=== PATIENT | female | born 1975 | race Caucasian/White ===

== ENCOUNTER 2021-07-28 07:35 | Emergency (ER) | payer OTHER, SELFPAY ==
[2021-07-28 07:59] VITALS: BP 136/68; PULSE 83; RESP 18; TEMP 36.8; O2SAT 98
--- NOTE | 2021-07-28 08:15 | ED.WOUNDLAC ---
HPI - Wound/Laceration General Chief Complaint: Wound/Laceration Stated Complaint: finger laceration Time Seen by Provider: 07/28/21 08:11 Source: patient Mode of arrival: ambulatory Limitations: no limitations History of Present Illness HPI narrative: 46-year-old female Small laceration to left thumb while cutting a bagel this morning No other injuries Tetanus is not up-to-date Related Data Allergies Allergy/AdvReac Type Severity Reaction Status Date / Time Sulfa (Sulfonamide Allergy Mild Hives Verified 07/28/21 08:05 Antibiotics) Review of Systems Neurologic: Denies numbness Hematologic/Lymphatic: Hematologic/Lymphatic: Denies easy bleeding and Denies easy bruising Exam Const: General: no acute distress and alert Orientation/consciousness: patient oriented x3 Resp: Effort & Inspection: normal respiratory effort and not labored Skin: General skin exam: normal color Neuro: General: patient oriented x3 and moves all extremities Extrem: Other: There is a tiny laceration adjacent to the left thumb nail which is oozing a small amount of blood Intact distal sensation Does not enter the nail itself distal Course Vital Signs Vital signs: Vital Signs Temperature 36.8 C 07/28/21 07:59 Pulse Rate 83 07/28/21 07:59 Respiratory Rate 18 07/28/21 07:59 Blood Pressure 136/68 07/28/21 07:59 Pulse Oximetry 98 07/28/21 07:59 Temperature 36.8 C 07/28/21 07:59 Pulse Rate 83 07/28/21 07:59 Respiratory Rate 18 07/28/21 07:59 Blood Pressure 136/68 07/28/21 07:59 Pulse Oximetry 98 07/28/21 07:59 Procedures Laceration Laceration 1: Date: 07/28/21 Time: 08:18 Site: other (hand) Side (If applicable): left Size (cm): 0.3 Description: linear Depth: simple, single layer ====== Skin Level ====== Skin layer closed with: dermabond ====== Subcutaneous Layer ====== ====== Muscle Layer ====== ====== Tendon Layer ====== Discharge Plan Discharge Clinical Impression: Laceration of thumb Patient Disposition: Home, Self-Care Condition: Stable Instructions: Skin Adhesive Care (ED) Follow-up/Referrals: Live Suero MD [Physician] - (primary care as needed) PHYSICIAN,QUILL MACHINE OPERATOR [Primary Care Provider] -
[2021-07-28] MEDS: TETANUS,DIPHTHERIA,AC PERTUSSIS ADULT (0.5 ML) BOOSTRIX IM (09:06)
== END 2021-07-28 09:10 | disposition home or self-care (01) ==
PROVIDERS: Emergency Provider Emergency Medicine
DX: S61.012A Laceration without foreign body of left thumb without damage to nail, initial encounter (principal); Z23 Encounter for immunization; W26.0XXA Contact with knife, initial encounter
CPT/HCPCS: 12001; 90471; 90715; 99282

== ENCOUNTER → 2022-02-22 10:45 | Outpatient (CLI) | payer BC, SELFPAY ==
--- NOTE | ~2022-02-22 | MM_ITS ---
EXAMINATION: MM scrn arben implant BI w monae HISTORY: Screening mammogram TECHNIQUE: Craniocaudal and mediolateral oblique 3-D tomosynthesis images with implant displacement a nd synthetic 2-D images were generated. Craniocaudal and mediolateral oblique views of the breasts wi thout implant displacement were obtained using full field digital mammography. CAD analysis was submi tted and interpreted. COMPARISON: 03/29/2019, 09/16/2015 bilateral implant screening mammogram examinations BREAST PARENCHYMAL COMPOSITION: The breasts are heterogeneously dense, which may obscure small masses . FINDINGS: Status post bilateral augmentation mammoplasty. Low-density circumscribed stable 1.9 x 3.3 and 2.7 x 4.5 mm opacities are noted in the posterior oute r mid right breast, benign in appearance There is no evidence of suspicious mass, calcification, or a rchitectural distortion to suggest malignancy in either breast. There has been no suspicious interval change. IMPRESSION: 1. No mammographic evidence of malignancy. 2. Recommend routine screening mammography in one year. BI-RADS Category 2: Benign finding(s). Reviewed, dictated and finalized at location A.
== END ==
PROVIDERS: Visit Provider Obstetrics & Gynecology
DX: Z12.31 Encounter for screening mammogram for malignant neoplasm of breast (principal)
CPT/HCPCS: 77063; 77067

== ENCOUNTER → 2023-04-22 08:11 | Outpatient (CLI) | payer BC, SELFPAY ==
--- NOTE | ~2023-04-22 | MM_ITS ---
EXAMINATION: MM scrn arben implant BI w monae HISTORY: Screening mammogram TECHNIQUE: Craniocaudal and mediolateral oblique 3-D tomosynthesis images with implant displacement a nd synthetic 2-D images were generated. Craniocaudal and mediolateral oblique views of the breasts wi thout implant displacement were obtained using full field digital mammography. CAD analysis was submi tted and interpreted. COMPARISON: 02/22/2022, 03/29/2019 bilateral implant screening mammogram examinations BREAST PARENCHYMAL COMPOSITION: The breasts are heterogeneously dense, which may obscure small masses . FINDINGS: Status post bilateral augmentation mammoplasty. Stable low-density circumscribed opacities in the posterior outer mid right breast, likely benign int ramammary lymph nodes. There is no evidence of suspicious mass, calcification, or architectural distortion to suggest malign deo in either breast. There has been no suspicious interval change. IMPRESSION: 1. Benign findings No mammographic evidence of malignancy. 2. Recommend routine screening mammography in one year. BI-RADS Category 2: Benign finding(s). Reviewed, dictated and finalized at location A.
== END ==
PROVIDERS: Visit Provider Obstetrics & Gynecology
DX: Z12.31 Encounter for screening mammogram for malignant neoplasm of breast (principal)
CPT/HCPCS: 77063; 77067

== ENCOUNTER 2024-04-23 07:12 | Outpatient (CLI) | payer BC, SELFPAY ==
--- NOTE | ~2024-04-23 | MM_ITS ---
EXAMINATION: MM scrn arben implant BI w monae HISTORY: Screening mammogram TECHNIQUE: Craniocaudal and mediolateral oblique 3-D tomosynthesis images with implant displacement a nd synthetic 2-D images were generated. Craniocaudal and mediolateral oblique views of the breasts wi thout implant displacement were obtained using full field digital mammography. CAD analysis was submi tted and interpreted. COMPARISON: Comparison to multiple prior studies sequentially, with oldest reviewed study dated 08/26. BREAST PARENCHYMAL COMPOSITION: There are scattered areas of fibroglandular density. FINDINGS: There is no evidence of suspicious mass, calcification, or architectural distortion to sugg est malignancy in either breast. There has been no suspicious interval change. IMPRESSION: 1. No mammographic evidence of malignancy. 2. Recommend routine screening mammography in one year. BI-RADS Category 1: Negative Reviewed, dictated and finalized at location B.
== END 2024-04-23 07:13 | disposition home or self-care (01) ==
LOC: CHSIMG 07:14
PROVIDERS: Visit Provider Obstetrics & Gynecology
DX: Z12.31 Encounter for screening mammogram for malignant neoplasm of breast (principal)
CPT/HCPCS: 77063; 77067

== ENCOUNTER 2024-09-30 10:27 | Emergency (ER) | payer BC, SELFPAY ==
--- NOTE | ~2024-09-30 | US_ITS ---
Limited ABDOMINAL ULTRASOUND (Doppler ultrasound interrogation techniques used as needed for this exa m.) Ordering provider: Evelyn Lang MD History: . hypodensities in liver . Comparison: None. FINDINGS: PANCREAS: Normal echotexture and size. PORTAL VEIN: Hepatopedal flow demonstrated. LIVER: Normal size and echotexture. Possible small hypoechoic area in the left lobe which may be a cy st. No other focal hepatic lesions or perihepatic fluid collections are identified. BILIARY DUCTS: No intra or extrahepatic biliary dilation. Common bile duct measures 2.4 mm in diamete r which is normal for patient's age. GALLBLADDER: Normal. No stones, sludge, gallbladder wall thickening or pericholecystic fluid. Wall th ickness is 3.2 mm. Negative sonographic Moore's sign. FREE FLUID: None visualized within the upper abdomen. IMPRESSION: Possible small hypoechoic area seen in the left lobe of the liver which may be a cyst. Otherwise, nor mal limited abdominal ultrasound. Reviewed, dictated and finalized at location A. CONSULTANT IMPRESSION: Possible small hypoechoic area seen in the left lobe of the liver which may be a cyst. Otherwise, normal limited abdominal ultrasound.
--- NOTE | ~2024-09-30 | CT_ITS ---
CT abdomen pelvis w con Ordering provider: Allison Lockhart PA-C History: 49 years Female with . ABD PAIN, DIARRHEA . Comparison: None. Technique: CT abdomen and pelvis with IV and without oral contrast. Automated exposure control and it erative reconstruction technique were employed. The dose-length product was 556.22 mGy-cm. 100 mL Omn ipaque 350 was given IV. Findings: Bilateral breast implants. VISUALIZED LOWER CHEST: Dependent atelectatic changes. UPPER ABDOMINAL ORGANS: Liver: Multiple small hypodensities most likely cysts. The largest measures 1.7 cm. Metastatic lesion s are less likely. Clinical correlation and ultrasound evaluation advised. Gallbladder: Normal. Spleen: Normal. Stomach/duodenum: Small sliding hiatus hernia. Pancreas: Normal. Adrenals: Stone in the left kidney lower pole measuring 5 mm. Normal. Kidneys: Normal. PELVIC ORGANS: The bladder is underfilled. Uterus: Normal. IUD is seen. BOWEL AND MESENTERY: Colon: No evidence of diverticulitis. Slightly dilated cecum with fluid content. The appendix is not demonstrated.. Small Bowel: Normal. No obstruction. Peritoneum/mesentery: No free air or free fluid. No mesenteric lymphadenopathy. Small lymph nodes are seen in the right lower quadrant. RETROPERITONEUM: Normal aorta. No retroperitoneal lymphadenopathy. MUSCULOSKELETAL: Superficial soft tissues: The superficial soft tissues are normal. Bones: Age appropriate degenerative changes of the spine. IMPRESSION: 1. Left kidney stone. 2. Multiple hypodensities in the liver most likely tiny cysts. Ultrasound evaluation advised. 3. Dilated area in the proximal colon is seen in the pelvis most likely dilated cecum. Follow-up adv ised. 4. Small sliding hiatus hernia. Reviewed, dictated and finalized at location A. ENT TENDER IMPRESSION: 1. Left kidney stone. 2. Multiple hypodensities in the liver most likely tiny cysts. Ultrasound eval uation advised. 3. Dilated area in the proximal colon is seen in the pelvis most likely dilate d cecum. Follow-up advised. 4. Small sliding hiatus hernia.
[2024-09-30 10:35] VITALS: BP 127/71; PULSE 130; RESP 16; TEMP 36.8; O2SAT 99
--- NOTE | 2024-09-30 10:54 | ED_ITS ---
HPI - Abdominal Pain General Chief Complaint: Abdominal Pain <Allison Lockhart PA-C - Last Filed: 10/01/24 11:04> Stated Complaint: diarrhea abd pain <Allison Lockhart PA-C - Last Filed: 10/01/24 11:04> Time Seen by Provider: 09/30/24 10:54 <Allison Lockhart PA-C - Last Filed: 10/01/24 11:04> Focused HPI: This is a 49 year old female that presents to the ER for abdominal pain. Reports associated diarrhea. Ongoing over the last several weeks. GENERAL: Well-appearing, well-nourished, and in no acute distress. HEAD: Normocephalic, atraumatic. CHEST: Clear to auscultation. ?No respiratory distress. HEART: Tachycardic, regular rhythm.? NEURO: ?Alert and oriented x3. Patient screened in triage and initial orders placed.? ?Additional care and disposition to be based upon?diagnostic testing and treatment. <Allison Lockhart PA-C - Last Filed: 10/01/24 11:04> Source: patient and family <Evelyn Lang MD - Last Filed: 10/05/24 04:19> Mode of arrival: ambulatory <Evelyn Lang MD - Last Filed: 10/05/24 04:19> Limitations: no limitations <Evelyn Lang MD - Last Filed: 10/05/24 04:19> History of Present Illness HPI narrative: Agree with the above with the following additions/corrections: Diarrhea started 09/14/24. Associated with epigastric abdominal pain occuring intermittently. Also intermittent nausea although none currently. No sick contacts. Has been trying liquids but seems to get diarrhea 15 minutes after. She took antibiotics in July for a sinus infection but finished them before the end of July, none since. No recent travel or chemo. No prior colonoscopy but has had a negative cologuard test. No regular GI issues; does not regularly follow with a mechanical equipment test engineer. This has never happened before. <Evelyn Lang MD - Last Filed: 10/05/24 04:19> Related Data Home Medications: Home Medications ?Medication ?Instructions ?Recorded ?Confirmed ?Last Taken ?Type albuterol sulfate 90 mcg/actuation 1 puff inhalation Q4H PRN 12/09/21 03/13/24 Unknown History aerosol inhaler cetirizine 10 mg capsule (Zyrtec) 10 mg PO DAILY PRN 12/09/21 03/13/24 Unknown History escitalopram oxalate 10 mg tablet 10 mg PO DAILY 12/09/21 03/13/24 Unknown History (Lexapro) fluticasone furoate 100 1 inh inhalation DAILY 12/09/21 03/13/24 Unknown History mcg-vilanterol 25 mcg/dose inhalation powder (Breo Ellipta) fluticasone propionate 50 1 spray intranasal DAILY 12/09/21 03/13/24 Unknown History mcg/actuation nasal spray,suspension (Flonase Allergy Relief) levonorgestrel (Mirena) 1 device intrauterine ONCE 12/09/21 03/13/24 Unknown History liothyronine 5 mcg tablet 10 mcg PO DAILY 03/13/24 03/13/24 Unknown History progesterone micronized 100 mg See Rx Instructions PO QAM 03/13/24 03/13/24 Unknown History capsule testosterone 1 pump topical DAILY 03/13/24 03/13/24 Unknown History <Allison Lockhart PA-C - Last Filed: 10/01/24 11:04> Allergies/Adverse Reactions: Allergies Allergy/AdvReac Type Severity Reaction Status Date / Time Sulfa (Sulfonamide Allergy Hives Verified 03/13/24 09:26 Antibiotics) <Allison Lockhart PA-C - Last Filed: 10/01/24 11:04> Review of Systems 2 Review of Systems: All systems reviewed & are unremarkable except as noted in HPI and below <Allison Lockhart PA-C - Last Filed: 10/01/24 11:04> PMFSH Past Medical History Medical History: Medical History Anxiety Asthma Delivery outcome of stillborn Depression Encounter for IUD insertion 10/21/16 Mirena removal & reinsertion 2011 Mirena insertion Encounter for IUD removal 10/21/16 Mirena removal & reinsertion Encounter for screening examination for sexually transmitted disease Irregular periods Kidney stones Migraines Screening mammogram, encounter for <Allison Lockhart PA-C - Last Filed: 10/01/24 11:04> Surgical History Surgical History: Surgical History History of breast surgery 2006 History of 2005 primary c/s--presentation of hand 08/31/11 History of gynecological procedure (~01/27/22) mirena iud removal and insertion of new device History of gynecological procedure (03/22/22) mirena iud removal Device had shifted and replacement with new device <Allison Lockhart PA-C - Last Filed: 10/01/24 11:04> Family History Family History: Family History Mother Diabetes mellitus Hypertension Heart disease Father Hypertension Cerebrovascular accident Heart disease Grandparent Ovary cancer paternal grandmother <Allison Lockhart PA-C - Last Filed: 10/01/24 11:04> Social History Social History: Social History (Updated 03/13/24 @ 09:30 by Maylin Cameron MA) Smoking status: Former smoker Smoking end date: 09/25/03 Alcohol intake: current Alcohol use details: 2 per month Substance use: never Substance use type: does not use Do You Feel Safe in your Home?: Yes Lack of Transportation: No Lack of Food: Never True Current Housing: I Have Housing Concerned About Future Housing: No Difficulty Paying Gas/Electric Bills: No Difficulty Paying for Meds: No Education: Decline to Answer Difficulty w/ Childcare or Family Care: No Living arrangements: other Additional living arrangements comments: spouse Occupation/Education: 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 HEAD: Normocephalic, atraumatic. EYES: Non injected, non icteric ENT: Nares clear, no rhinorrhea or epistaxis. Moist mucous membranes. NECK: Supple. CHEST: Speaking in full sentences. No respiratory distress. HEART: Regular rate and rhythm. . ABDOMEN: Soft, nondistended. Mildly tender to palpation at epigastrium. No rigidity/guarding. Not peritoneal EXTREMITIES: Normal range of motion. No lower extremity edema. SKIN: Warm, dry, no rash. NEURO: No focal deficits. Alert and oriented x3. PSYCH: Normal mood and affect. <Evelyn Lang MD - Last Filed: 10/05/24 04:19> Course Vital Signs Vital signs: Vital Signs Temperature 98.3 F 09/30/24 10:35 Pulse Rate 130 H 09/30/24 10:35 Respiratory Rate 16 09/30/24 10:35 Blood Pressure 127/71 09/30/24 10:35 Pulse Oximetry 99 09/30/24 10:35 Oxygen Delivery Room Air 09/30/24 10:35 Temperature 97.5 F L 09/30/24 18:33 Pulse Rate 102 H 09/30/24 18:33 Respiratory Rate 16 09/30/24 18:33 Blood Pressure 128/75 09/30/24 18:33 Pulse Oximetry 98 09/30/24 18:33 Oxygen Delivery Room Air 09/30/24 10:35 <Allison Lockhart PA-C - Last Filed: 10/01/24 11:04> Vital Signs Temperature 98.3 F 09/30/24 10:35 Pulse Rate 130 H 09/30/24 10:35 Respiratory Rate 16 09/30/24 10:35 Blood Pressure 127/71 09/30/24 10:35 Pulse Oximetry 99 09/30/24 10:35 Oxygen Delivery Room Air 09/30/24 10:35 Temperature 97.5 F L 09/30/24 18:33 Pulse Rate 102 H 09/30/24 18:33 Respiratory Rate 16 09/30/24 18:33 Blood Pressure 128/75 09/30/24 18:33 Pulse Oximetry 98 09/30/24 18:33 Oxygen Delivery Room Air 09/30/24 10:35 <Evelyn Lang MD - Last Filed: 10/05/24 04:19> MDM - Abdominal Pain MDM Narrative Medical decision making narrative: Patient presents with diarrhea and intermittent epigastric abdominal pain + nausea. In the emergency department she is afebrile with vital signs significant for tachycardia at 130 beats per minute. Patient received 1 L IV fluids given initial tachycardia. My differential diagnosis for chronic diarrhea includes, but not limited to: Infectious (giardia, E histolytica, C difficile), medications (antibiotics, antacids, lactulose, sorbitol, chemotherapy, colchicine, gold), inflammatory etiology (such as IBD, radiation enteritis, ischemic colitis, diverticulitis). Also possible are malabsorption issues due to bile salt deficiency (cirrhosis, cholestasis, ileal disease, bacterial overgrowth), pancreatic insufficiency, mucosal abnormalities (celiac sprue, tropical sprue, Whipple disease), or lactose intolerance. They are also secretory causes such as hormonal (VIP, carcinoid tumor, medullary cancer of thyroid, Zolinger Lyles, glucagon, thyroxine), laxative abuse, neoplasm; finally motility issues may be the cause (IBS, scleroderma, hyperthyroidism, diabetic autonomic neuropathy). Based on CT images, US ordered. Patient has leukocytosis as well as an elevated hemoglobin/hematocrit. I suspect a degree of stress response and hemoconcentration. test negative. TSH abnormal but free T4 normal. This suggests subclinical hyperthyroidism versus T3 toxicosis; T3 is a send out lab and will not result today. Patient does state that she takes supplemental T3; Advised she stop taking this medication. Patient states that she has a primary care physician and she had attempted to go through them for her thyroid medication however she never got a response and so she went through her chiropractor who has a practice that administers these meds. Will also give a one time dose of ciprofloxacin for the combination of chronic diarrhea and the findings of the UA although she denies symptoms. Discharged in stable condition. <Evelyn Lang MD - Last Filed: 10/05/24 04:19> Lab Data Result diagrams: 09/30/24 10:55 09/30/24 10:55 <Allison Lockhart PA-C - Last Filed: 10/01/24 11:04> Labs: Lab Results 09/30/24 09/30/24 09/30/24 Range/Units 10:54 10:55 12:29 WBC 12.3 H (4.5-10.0) K/mm3 RBC 5.52 H (4.2-5.4) M/mm3 Hgb 16.4 H (12.0-15.0) g/dL Hct 49.7 H (37.0-47.0) % MCV 90.0 (80-100) fl MCH 29.7 (26-34) pg MCHC 33.0 (32-36) g/dl RDW 12.8 (11.5-14.5) % Plt Count 363 (150-375) k/mm3 MPV 9.0 (7.4-10.4) fl Immature Gran % (Auto) 0.2 (0-0.5) % Neut % (Auto) 79.9 H (45.5-73.1) % Lymph % (Auto) 12.6 L (18.3-44.2) % [place] % (Auto) 6.3 (2.6-8.5) % Eos % (Auto) 0.6 (0-4.4) % Baso % (Auto) 0.4 (0.2-1.2) % Lymph # (Auto) 1.55 (0.9-3.2) K/mm3 [place] # (Auto) 0.8 H (0.1-0.6) K/mm3 Eos # (Auto) 0.1 (0-0.3) K/mm3 Baso # (Auto) 0.1 (0.0-0.1) K/mm3 Abs Immat Gran (auto) 0.03 (0.00-0.031) K/mm3 Absolute Neuts (auto) 9.8 H (1.3-6.7) K/mm3 Absolute Nucleated RBC 0.000 (0.0-0.012) K/mm3 Nucleated RBC % 0.0 (0.0-0.2) % Sodium 138 (137-145) mmol/L Potassium 4.5 (3.4-5.0) mmol/L Chloride 103 (98-107) mmol/L Carbon Dioxide 24 (22-30) mmol/L Anion Gap 11 (4-12) mmol/L BUN 12 (7-17) mg/dL Creatinine 0.81 (0.7-1.0) mg/dL Estim Creat Clear Calc 83 ml/min Estimated GFR > 60 (59 - ) Glucose 98 (65-110) mg/dL Calcium 9.2 (8.4-10.2) mg/dL Magnesium 1.8 (1.6-2.3) mg/dL Total Bilirubin 0.8 (0.2-1.3) mg/dL AST 21 (14-36) U/L ALT 22 (6-35) U/L Alkaline Phosphatase 104 (38-126) U/L Total Protein 7.0 (6.3-8.2) g/dL Albumin 4.1 (3.5-5.1) g/dL Lipase 74 (23-300) U/L TSH (Reflex) 0.135 L (0.465-4.68) uIU/mL Free T4 0.98 (0.78-2.19) ng/dL Free T3 pg/mL TNP Total T3 1.69 (0.97-1.69) NG/ML Urine Color Dark yellow (Yellow) Urine Appearance Cloudy H (Clear) Urine pH 5.5 (5.0-9.0) Ur Specific [place] 1.025 (1.001-1.035) Urine Protein Trace (Negative) mg/dL Urine Glucose (UA) Negative (Negative) mg/dL Urine Ketones 3+ H (Negative) mg/dL Ur Blood (Man) 1+ H (Negative) Urine Nitrate Negative (Negative) Urine Bilirubin Negative (Negative) Urine Urobilinogen 1.0 (<2.0) mg/dL Add Ur Microanalysis Reviewed Leukocyte Esterase Rfl 2+ H (Negative) CHAPARRO/UL Urine RBC 21-50 H (0-2) /hpf Urine WBC 51-100 H (0-3) /hpf Ur Squamous Epith Cells Moderate (Few) /hpf Urine Bacteria 3+ H /hpf Urine Casts 6-10 POC Urine HCG, Qual (Negative) 09/30/24 Range/Units 12:32 WBC (4.5-10.0) K/mm3 RBC (4.2-5.4) M/mm3 Hgb (12.0-15.0) g/dL Hct (37.0-47.0) % MCV (80-100) fl MCH (26-34) pg MCHC (32-36) g/dl RDW (11.5-14.5) % Plt Count (150-375) k/mm3 MPV (7.4-10.4) fl Immature Gran % (Auto) (0-0.5) % Neut % (Auto) (45.5-73.1) % Lymph % (Auto) (18.3-44.2) % [place] % (Auto) (2.6-8.5) % Eos % (Auto) (0-4.4) % Baso % (Auto) (0.2-1.2) % Lymph # (Auto) (0.9-3.2) K/mm3 [place] # (Auto) (0.1-0.6) K/mm3 Eos # (Auto) (0-0.3) K/mm3 Baso # (Auto) (0.0-0.1) K/mm3 Abs Immat Gran (auto) (0.00-0.031) K/mm3 Absolute Neuts (auto) (1.3-6.7) K/mm3 Absolute Nucleated RBC (0.0-0.012) K/mm3 Nucleated RBC % (0.0-0.2) % Sodium (137-145) mmol/L Potassium (3.4-5.0) mmol/L Chloride (98-107) mmol/L Carbon Dioxide (22-30) mmol/L Anion Gap (4-12) mmol/L BUN (7-17) mg/dL Creatinine (0.7-1.0) mg/dL Estim Creat Clear Calc ml/min Estimated GFR (59 - ) Glucose (65-110) mg/dL Calcium (8.4-10.2) mg/dL Magnesium (1.6-2.3) mg/dL Total Bilirubin (0.2-1.3) mg/dL AST (14-36) U/L ALT (6-35) U/L Alkaline Phosphatase (38-126) U/L Total Protein (6.3-8.2) g/dL Albumin (3.5-5.1) g/dL Lipase (23-300) U/L TSH (Reflex) (0.465-4.68) uIU/mL Free T4 (0.78-2.19) ng/dL Free T3 pg/mL Total T3 (0.97-1.69) NG/ML Urine Color (Yellow) Urine Appearance (Clear) Urine pH (5.0-9.0) Ur Specific [place] (1.001-1.035) Urine Protein (Negative) mg/dL Urine Glucose (UA) (Negative) mg/dL Urine Ketones (Negative) mg/dL Ur Blood (Man) (Negative) Urine Nitrate (Negative) Urine Bilirubin (Negative) Urine Urobilinogen (<2.0) mg/dL Add Ur Microanalysis Leukocyte Esterase Rfl (Negative) CHAPARRO/UL Urine RBC (0-2) /hpf Urine WBC (0-3) /hpf Ur Squamous Epith Cells (Few) /hpf Urine Bacteria /hpf Urine Casts POC Urine HCG, Qual Negative (Negative) <Allison Lockhart PA-C - Last Filed: 10/01/24 11:04> Lab Results 09/30/24 09/30/24 09/30/24 Range/Units 10:54 10:55 12:29 WBC 12.3 H (4.5-10.0) K/mm3 RBC 5.52 H (4.2-5.4) M/mm3 Hgb 16.4 H (12.0-15.0) g/dL Hct 49.7 H (37.0-47.0) % MCV 90.0 (80-100) fl MCH 29.7 (26-34) pg MCHC 33.0 (32-36) g/dl RDW 12.8 (11.5-14.5) % Plt Count 363 (150-375) k/mm3 MPV 9.0 (7.4-10.4) fl Immature Gran % (Auto) 0.2 (0-0.5) % Neut % (Auto) 79.9 H (45.5-73.1) % Lymph % (Auto) 12.6 L (18.3-44.2) % [place] % (Auto) 6.3 (2.6-8.5) % Eos % (Auto) 0.6 (0-4.4) % Baso % (Auto) 0.4 (0.2-1.2) % Lymph # (Auto) 1.55 (0.9-3.2) K/mm3 [place] # (Auto) 0.8 H (0.1-0.6) K/mm3 Eos # (Auto) 0.1 (0-0.3) K/mm3 Baso # (Auto) 0.1 (0.0-0.1) K/mm3 Abs Immat Gran (auto) 0.03 (0.00-0.031) K/mm3 Absolute Neuts (auto) 9.8 H (1.3-6.7) K/mm3 Absolute Nucleated RBC 0.000 (0.0-0.012) K/mm3 Nucleated RBC % 0.0 (0.0-0.2) % Sodium 138 (137-145) mmol/L Potassium 4.5 (3.4-5.0) mmol/L Chloride 103 (98-107) mmol/L Carbon Dioxide 24 (22-30) mmol/L Anion Gap 11 (4-12) mmol/L BUN 12 (7-17) mg/dL Creatinine 0.81 (0.7-1.0) mg/dL Estim Creat Clear Calc 83 ml/min Estimated GFR > 60 (59 - ) Glucose 98 (65-110) mg/dL Calcium 9.2 (8.4-10.2) mg/dL Magnesium 1.8 (1.6-2.3) mg/dL Total Bilirubin 0.8 (0.2-1.3) mg/dL AST 21 (14-36) U/L ALT 22 (6-35) U/L Alkaline Phosphatase 104 (38-126) U/L Total Protein 7.0 (6.3-8.2) g/dL Albumin 4.1 (3.5-5.1) g/dL Lipase 74 (23-300) U/L TSH (Reflex) 0.135 L (0.465-4.68) uIU/mL Free T4 0.98 (0.78-2.19) ng/dL Free T3 pg/mL TNP Total T3 1.69 (0.97-1.69) NG/ML Urine Color Dark yellow (Yellow) Urine Appearance Cloudy H (Clear) Urine pH 5.5 (5.0-9.0) Ur Specific [place] 1.025 (1.001-1.035) Urine Protein Trace (Negative) mg/dL Urine Glucose (UA) Negative (Negative) mg/dL Urine Ketones 3+ H (Negative) mg/dL Ur Blood (Man) 1+ H (Negative) Urine Nitrate Negative (Negative) Urine Bilirubin Negative (Negative) Urine Urobilinogen 1.0 (<2.0) mg/dL Add Ur Microanalysis Reviewed Leukocyte Esterase Rfl 2+ H (Negative) CHAPARRO/UL Urine RBC 21-50 H (0-2) /hpf Urine WBC 51-100 H (0-3) /hpf Ur Squamous Epith Cells Moderate (Few) /hpf Urine Bacteria 3+ H /hpf Urine Casts 6-10 POC Urine HCG, Qual (Negative) 01/06/25 Range/Units 12:32 WBC (4.5-10.0) K/mm3 RBC (4.2-5.4) M/mm3 Hgb (12.0-15.0) g/dL Hct (37.0-47.0) % MCV (80-100) fl MCH (26-34) pg MCHC (32-36) g/dl RDW (11.5-14.5) % Plt Count (150-375) k/mm3 MPV (7.4-10.4) fl Immature Gran % (Auto) (0-0.5) % Neut % (Auto) (45.5-73.1) % Lymph % (Auto) (18.3-44.2) % [place] % (Auto) (2.6-8.5) % Eos % (Auto) (0-4.4) % Baso % (Auto) (0.2-1.2) % Lymph # (Auto) (0.9-3.2) K/mm3 [place] # (Auto) (0.1-0.6) K/mm3 Eos # (Auto) (0-0.3) K/mm3 Baso # (Auto) (0.0-0.1) K/mm3 Abs Immat Gran (auto) (0.00-0.031) K/mm3 Absolute Neuts (auto) (1.3-6.7) K/mm3 Absolute Nucleated RBC (0.0-0.012) K/mm3 Nucleated RBC % (0.0-0.2) % Sodium (137-145) mmol/L Potassium (3.4-5.0) mmol/L Chloride (98-107) mmol/L Carbon Dioxide (22-30) mmol/L Anion Gap (4-12) mmol/L BUN (7-17) mg/dL Creatinine (0.7-1.0) mg/dL Estim Creat Clear Calc ml/min Estimated GFR (59 - ) Glucose (65-110) mg/dL Calcium (8.4-10.2) mg/dL Magnesium (1.6-2.3) mg/dL Total Bilirubin (0.2-1.3) mg/dL AST (14-36) U/L ALT (6-35) U/L Alkaline Phosphatase (38-126) U/L Total Protein (6.3-8.2) g/dL Albumin (3.5-5.1) g/dL Lipase (23-300) U/L TSH (Reflex) (0.465-4.68) uIU/mL Free T4 (0.78-2.19) ng/dL Free T3 pg/mL Total T3 (0.97-1.69) NG/ML Urine Color (Yellow) Urine Appearance (Clear) Urine pH (5.0-9.0) Ur Specific [place] (1.001-1.035) Urine Protein (Negative) mg/dL Urine Glucose (UA) (Negative) mg/dL Urine Ketones (Negative) mg/dL Ur Blood (Man) (Negative) Urine Nitrate (Negative) Urine Bilirubin (Negative) Urine Urobilinogen (<2.0) mg/dL Add Ur Microanalysis Leukocyte Esterase Rfl (Negative) CHAPARRO/UL Urine RBC (0-2) /hpf Urine WBC (0-3) /hpf Ur Squamous Epith Cells (Few) /hpf Urine Bacteria /hpf Urine Casts POC Urine HCG, Qual Negative (Negative) <Evelyn Lang MD - Last Filed: 10/05/24 04:19> Imaging Data Radiologist's impression: ITS Impressions Abdomen/Pelvis CT 09/30/24 13:38 IMPRESSION: 1. Left kidney stone. 2. Multiple hypodensities in the liver most likely tiny cysts. Ultrasound evaluation advised. 3. Dilated area in the proximal colon is seen in the pelvis most likely dilated cecum. Follow-up advised. 4. Small sliding hiatus hernia. Abdomen Ultrasound 09/30/24 15:51 IMPRESSION: Possible small hypoechoic area seen in the left lobe of the liver which may be a cyst. Otherwise, normal limited abdominal ultrasound. <Allison Lockhart PA-C - Last Filed: 10/01/24 11:04> ITS Impressions Abdomen/Pelvis CT 09/30/24 13:38 IMPRESSION: 1. Left kidney stone. 2. Multiple hypodensities in the liver most likely tiny cysts. Ultrasound evaluation advised. 3. Dilated area in the proximal colon is seen in the pelvis most likely dilated cecum. Follow-up advised. 4. Small sliding hiatus hernia. Abdomen Ultrasound 09/30/24 15:51 IMPRESSION: Possible small hypoechoic area seen in the left lobe of the liver which may be a cyst. Otherwise, normal limited abdominal ultrasound. <Evelyn Lang MD - Last Filed: 10/05/24 04:19> ECG Data EKG #1: Attestation: I personally reviewed and interpreted this ECG as follows: < Evelyn Lang MD - Last Filed: 10/05/24 04:19> ECG completion date: 09/30/24 <Evelyn Lang MD - Last Filed: 10/05/24 04:19> ECG completion time: 15:02 <Evelyn Lang MD - Last Filed: 10/05/24 04:19> Interpretation: Sinus tachycardia at a rate of 104 beats per minute. NM interval 150. QRS 90. QT/QTC 299/360. Pre populated algorithm suggests left ventricular hypertrophy but S wave depth in V1 + tallest R wave height in V5-6 is <35mm though R wave in lead I + S wave in lead III is >/= 25mm . <Evelyn Lang MD - Last Filed: 10/05/24 04:19> Critical Care Time Critical Care Time Critical Care Time: No <Allison Lockhart PA-C - Last Filed: 10/01/24 11:04> Discharge Plan Discharge Clinical Impression: Chronic diarrhea, Dilation of cecum, Hiatal hernia, Elevated hemoglobin, Leukocytosis, Liver cyst, Abnormal thyroid stimulating hormone (TSH) level, Asymptomatic bacteriuria <Allison Lockhart PA-C - Last Filed: 10/01/24 11:04> Patient Disposition: Home, Self-Care <Allison Lockhart PA-C - Last Filed: 10/01/24 11:04> Condition: Stable <GARRISON Somers Last Filed: 10/01/24 11:04> Instructions: Antibiotic Form, Hiatal Hernia (ED), Chronic Diarrhea (DC), Leukocytosis (ED) <Allison Lockhart PA-C - Last Filed: 10/01/24 11:04> Additional Instructions: As we discussed, your TSH level was low but T4 normal. Your T3 is a send out lab but, given you have been taking T3 ,this means that it could represent subclinical hyperthyroidism or T3 toxicosis. Given you have been taking supplemental T3, I do recommend that you stop taking this and follow up when the lab results. A 1 time dose of ciprofloxacin can help chronic diarrhea so you received this in the emergency department especially because your urine was abnormal showing possible infection but you are otherwise asymptomatic. Follow- up with primary care physician. Return to the emergency department with any new or worsening symptoms such as concern for dehydration, fainting/passing out, bloody stools, fever greater than 100.4? F, no longer passing gas, pain not responding to medicines, intractable nausea/vomiting. Acetaminophen/Tylenol (maximum 4000 mg per day) is safe to take with NSAIDs (ibuprofen/Motrin) for pain relief. You did have evidence of a hiatal hernia on your CT scan you can trial omeprazole for this. If your symptoms persist, you can follow-up with the mechanical equipment test engineer listed below. For nausea/vomiting, you can use the oral disintegrating tablets of Zofran. <Allison Lockhart PA-C - Last Filed: 10/01/24 11:04> Patient Language: Swedish <Allison Lockhart PA-C - Last Filed: 10/01/24 11:04> Prescriptions: New omeprazole 20 mg tablet,delayed release (DR/EC) 20 mg PO DAILY Qty: 20 0RF ibuprofen 600 mg tablet 600 mg PO TID PRN (Reason: pain) Qty: 20 0RF acetaminophen 500 mg capsule 1,000 mg PO Q6H PRN (Reason: pain) Qty: 20 0RF ondansetron 4 mg tablet,disintegrating 4 mg PO Q8H PRN (Reason: nausea and vomiting) Qty: 7 0RF No Action Zyrtec 10 mg capsule 10 mg PO DAILY PRN fluticasone propionate [Flonase Allergy Relief] 50 mcg/actuation spray,suspension 1 spray intranasal DAILY Rx Instructions: administer into each nostril Mirena 20 mcg/24 hours (7 yrs) 52 mg intrauterine device 1 device intrauterine ONCE Rx Instructions: as a single dose Breo Ellipta 100-25 mcg/dose blister with device 1 inh inhalation DAILY escitalopram oxalate [Lexapro] 10 mg tablet 10 mg PO DAILY albuterol sulfate 90 mcg/actuation HFA aerosol inhaler 1 puff inhalation Q4H PRN liothyronine 5 mcg tablet 10 mcg PO DAILY progesterone micronized 100 mg capsule See Rx Instructions PO QAM Rx Instructions: 110 mg orally every morning; testosterone 20.25 mg/1.25 gram (1.62 %) gel in metered-dose pump 1 pump topical DAILY Rx Instructions: apply 1 pump amount over max area of ONE upper arm and shoulder <Allison Lockhart PA-C - Last Filed: 10/01/24 11:04> Follow-up/Referrals: Ricardo Gee MD [Physician] - (gastroenterology) UNKNOWN,DOCTOR [Primary Care Provider] - <Allison Lockhart PA-C - Last Filed: 10/01/24 11:04> Stand Alone Forms: Work/School Release IP <Allison Lockhart PA-C - Last Filed: 10/01/24 11:04> Time of Disposition: 17:08 <Allison Lockhart PA-C - Last Filed: 10/01/24 11:04> 17:08 <Evelyn Lang MD - Last Filed: 10/05/24 04:19>
--- NOTE | 2024-09-30 10:55 | ECG_ITS ---
Test Date: 2024-09-30 15:02:32 Measurements Intervals [place] Rate: 104 P: 45 [place]: 150 QRS: 4 QRSD: 90 T: 121 QT: 299 QTc: 394 Interpretive Statements SINUS TACHYCARDIA POSSIBLE LEFT ATRIAL ENLARGEMENT [-0.1mV P-WAVE IN V1/V2] LEFT VENTRICULAR HYPERTROPHY AND ST-T CHANGE [VOLTAGE CRITERIA PLUS ST/T ABNORMALITY] No previous ECG available for comparison Electronically Signed On 10-02-2024 17:03:44 LEAD TELLER by Samra Navarrete M.D.
[2024-09-30 11:01] LABS: Basophils Absolute Auto 0.1 K/mm3 (0.0-0.1); Basophils Percent Auto 0.4 % (0.2-1.2); Eosinophils Absolute Auto 0.1 K/mm3 (0-0.3); Eosinophils Percent Auto 0.6 % (0-4.4); Hematocrit 49.7 % (37.0-47.0); Hemoglobin 16.4 g/dL (12.0-15.0); Immature Granulocyte Absolute 0.03 K/mm3 (0.00-0.031); Immature Granulocyte Percent A 0.2 % (0-0.5); Lymphocytes Absolute Auto 1.55 K/mm3 (0.9-3.2); Lymphocytes Percent Auto 12.6 % (18.3-44.2); Mean Corpuscular Hemoglobin 29.7 pg (26-34); Monocytes Absolute Auto 0.8 K/mm3 (0.1-0.6); Monocytes Percent Auto 6.3 % (2.6-8.5); Neutrophils Absolute Auto 9.8 K/mm3 (1.3-6.7); Neutrophils Percent Auto 79.9 % (45.5-73.1); Platelet Count Result 363 k/mm3 (150-375); Red Blood Count 5.52 M/mm3 (4.2-5.4); Red Cell Distribution Width 12.8 % (11.5-14.5); White Blood Count 12.3 K/mm3 (4.5-10.0)
[2024-09-30 11:10] LABS: Alanine Aminotransferase 22 U/L (6-35); Albumin Level 4.1 g/dL (3.5-5.1); Alkaline Phosphatase 104 U/L (38-126); Anion Gap 11 mmol/L (4-12); Aspartate Amino Transferase 21 U/L (14-36); Bilirubin,Total 0.8 mg/dL (0.2-1.3); Blood Urea Nitrogen 12 mg/dL (7-17); Calcium 9.2 mg/dL (8.4-10.2); Carbon Dioxide 24 mmol/L (22-30); Chloride 103 mmol/L (98-107); Estimated CRCL calculation 83 ml/min; Estimated Glomerular Filt Rate > 60; Glucose 98 mg/dL (65-110); Lipase 74 U/L (23-300); Potassium 4.5 mmol/L (3.4-5.0); Sodium 138 mmol/L (137-145)
[2024-09-30 12:34] LABS: BEDSIDEPREGUCG Negative (Negative)
[2024-09-30 12:57] LABS: Add Urine Microscopic? YES; Appearance Urine Cloudy (Clear); Bacteria Urine 3+ /hpf; Bilirubin Urine Negative (Negative); Blood Urine 1+ (Negative); Color Urine Dark Yellow (Yellow); Glucose Urine UA Negative (Negative); Ketones Urine 3+ mg/dL (Negative); Leukocyte Esterase Ur 2+ LEU/UL (Negative); Need Manual Microscopic Reviewed; Nitrate Urine Negative (Negative); Protein Urine Trace mg/dL (Negative); RBC Urine 21-50 /hpf (0-2); Specific Grav Ur 1.025 (1.001-1.035); Squamous Epithelial Cell Urine Moderate /hpf (Few); WBC Urine 51-100 /hpf (0-3); pH Urine 5.5 (5.0-9.0)
[2024-09-30 15:34] LABS: Magnesium 1.8 mg/dL (1.6-2.3)
[2024-09-30 16:14] LABS: Thyroid Stimulating Hormone Reflex 0.135 uIU/mL (0.465-4.68)
[2024-09-30] MEDS: PANTOPRAZOLE 40 MG TABLET PO (16:25)
[2024-09-30] MEDS: SODIUM CHLORIDE 0.9% IV 1,000 ML 999 ML IV CONT (16:26)
[2024-09-30 16:27] VITALS: BP 123/75; PULSE 99; RESP 16; TEMP 36.8; O2SAT 99
[2024-09-30 16:45] LABS: Free T4 Free Thyroxine Reflex 0.98 ng/dL (0.78-2.19)
[2024-09-30] MEDS: CIPROFLOXACIN 250 MG TABLET 750 MG PO (17:53)
[2024-09-30 18:33] VITALS: BP 128/75; PULSE 102; RESP 16; TEMP 36.4; O2SAT 98
[2024-09-30 19:18] LABS: Total Triiodothyronine (T3) 1.69 NG/ML (0.97-1.69)
--- OUTSIDE RECORDS SUMMARY | 2024-10-06 18:12 | XMS_ITS | Encounter Summary ---
Author Organization [facility] Address [address] [place] [address] Care Team Providers Care Rn Chronic Name Role Phone Annalisa Christopher MD Primary Care Provider [phone] Reason for Visit * Reason Comments Clinical Consult Before Scheduling Encounter Details Date Type Department Care Team (Late st Contact Info) Description 07/18/2024 Telephone [facility] Primary Care - [address] [place] [address] Annalisa Christopher MD [address] [place] [address] [address] [place] [address] Clinical Consult Before Scheduling Social History Tobacco Use Types Packs/Day Years Used Date Smoking Tobacco: Former Cigarettes Q uit: 07/09/2010 Smokeless Tobacco: Never Alcohol Use Standard Drinks/Week Comments Yes 0 (1 standard drink = 0.6 oz pur e alcohol) Socially Sex and Gender Information Value Date Recorded Sex Assigned at Not on file Gender Identity Not on file Sexual Orientation Not on file documented as of this encounter Miscellaneous Notes * Telephone Encounter - Sofy Murray LPN - 07/18/2024 8:35 AM CDT 07/18/2024 8:35 AM Spoke with patient. Appointment successfully scheduled/rescheduled. Pt voiced an understanding. Sofy HAGAN * Telephone Encounter - Cora Garza - 07/18/2024 8:20 AM CDT Copied from [facility] #[id number]. Topic: Symptomatic Care >> Jul 18, 2024 8:17 AM Cora Montes wrote: Caller has new symptoms and is seeking care. Age Range/Symptom: Adult: 18+ - Cold, Flu, COVID, Sinus, Hay Fever, Allergies, Cough, Fever Does patient have any of the following other urgent symptoms: No urgent symptoms requiring warm call transfer Caller Name: Fabiana Pryor Callback Number: Telephone Information: Call Notes: Sinus infection symptoms, headache, productive cough w/ yellow/green mucus, sore throat, yellow/green nasal drainage. Patient denied office visit and UC, would like medication called out.Patient states that pcp usually calls it out for her this time of year. Meds tried: Zyrtec D, Flonase, Mucinex w/ no relief. [facility]erred Pharm[id number] [place] [place] [facility] [address] [facility] No documented in this encounter Plan of Treatment Upcoming Encounters Date Type Department Care Team (Late st Contact Info) Description 04/25/2025 8:20 AM CDT Office Visit [facility] Primary Care - [address] [place] [phone] Annalisa Christopher MD [address] [place] [address] [place] [address] documented as of this encounter Visit Diagnoses Not on filedocumented in this encounter Care Teams Rn Chronic Relationship Specialty Start Date End Date Annalisa Christopher MD [address] [facility] [address] [place] [address] PCP - General 07/07/08 documented as of this encounter
--- OUTSIDE RECORDS SUMMARY | 2024-10-06 18:12 | XMS_ITS | Encounter Summary ---
Author Organization [facility] Address [address] [place] [address] Care Team Providers Care Electrical Prospecting Operator Name Role Phone Annalisa Christopher MD Primary Care Provider [phone] Reason for Visit * Reason Comments Med Refill Encounter Details Date Type Department Care Team (Late st Contact Info) Description 05/06/2024 Refill [facility] [address] [place] [address] [place] [phone] Annalisa Christopher MD [address] [place] [address] [address] [place] [address] Mild intermittent asthma without complication Social History Tobacco Use Types Packs/Day Years [...] on file documented as of this encounter Plan of Treatment Upcoming Encounters Date Type Department Care Team (Late st Contact Info) Description 04/25/2025 8:20 AM CDT Office Visit [facility] [address] [facility] [address] [place] [address] Annalisa Christopher MD [address] [place] [address] [address] [place] [address] documented as of this encounter Visit Diagnoses Diagnosis Mild intermittent asthma without complication Unspecified asthma documented in this encounter Care Teams Electrical Prospecting Operator Relationship Specialty Start Date End Date Annalisa Christopher MD [address] [facility] [address] [place] [phone] PCP - General 07/07/08 documented as of this encounter
--- OUTSIDE RECORDS SUMMARY | 2024-10-06 18:12 | XMS_ITS | Encounter Summary ---
Author Organization [facility] Address [address] [place] [address] Care Team Providers Care Proof Machine Operator Name Role Phone Annalisa Christopher MD Primary Care Provider [phone] Reason for Visit * Reason Comments Clinical Consult Before Scheduling Encounter Details Date Type Department Care Team (Late st Contact Info) Description 09/17/2024 Telephone [facility] Primary Care - [address] [place] [address] Annalisa Christopher MD [address] [place] [address] [address] [place] [address] Clinical Consult Before Scheduling Social [...] Telephone Encounter - Sofy Murray LPN - 09/17/2024 9:22 AM MANAGER CONSUMER INSIGHTS 09/17/2024 9:23 AM Pt has no appetite and nausea since Monday09/14/24 and feels she may have the stomach flu, pt states on Sat-Sun she had a temp but she did not take it to see what it was but she was exposed w/t the kids at school to the stomach virus that is going around. She has taken Imodium and said it is notworking, advised no openings to be seen in office & to get evaluated at , pt verbalized an und erstanding. Sofy HAGAN GER CONSUMER INSIGHTS * Telephone Encounter - Samson Apple - 09/17/2024 9:14 AM CST Copied from [facility] #[id number]. Topic: Symptomatic Care >> Sep 17, 2024 9:05 AM Samson Weaver wrote: Caller has new symptoms and is seeking care. Age Range/Symptom: Adult: 18+ - Diarrhea Does patient have any of the following other urgent symptoms? No urgent symptoms requiring warm call transfer Caller Name: Fabiana Pryor Callback Number: [phone] Call Notes: The patient advised that she has diarrhea, no appetite and nausea since Monday09/14/24 and feels she may have the stomach flu. She has taken Imodium and said it is not working for her. She may go to the Urgent Care today but would like to know what else she could take to help. Please advise patient. Unable to schedule appointment within patient's desired timeframe. Patient declined all other options for immediate care, preferring to schedule first available. Scheduled appointment for N/A. If this is not clinically appropriate, please contact patient. GER CONSUMER INSIGHTS documented in this encounter Plan of Treatment Upcoming Encounters Date Type Department Care Team (Late st Contact Info) Description 04/25/2025 8:20 AM CDT Office Visit [facility] [address] [place] [address] [place] [phone] Annalisa Christopher MD [address] [place] [address] [address] [place] [address] documented as of this encounter Visit Diagnoses Not on filedocumented in this encounter Care Teams Proof Machine Operator Relationship Specialty Start Date End Date Annalisa Christopher MD [address] [place] [address] [address] [place] [phone] PCP - General 07/07/08 documented as of this encounter
--- OUTSIDE RECORDS SUMMARY | 2024-10-06 18:12 | XMS_ITS | Encounter Summary ---
Author Organization [facility] Address [address] [place] [address] Care Team Providers Care Pari Mutual Ticket Checker Name Role Phone Annalisa Christopher MD Primary Care Provider [phone] Encounter Details Date Type Department Care Team (Late st Contact Info) Description 07/09/2024 External Device Data STL ABSTRACTION Provider, Abstract NO ADDRESS ON FILE Social History Tobacco Use Types Packs/Day Years [...] Description 04/25/2025 8:20 AM CDT Office Visit [facility] Primary Care - [facility] [address] [place] [address] [place] [address] Annalisa Christopher MD [address] [place] [address] [address] [place] [address] documented as of this encounter Visit Diagnoses Not on filedocumented in this encounter Care Teams Pari Mutual Ticket Checker Relationship Specialty Start Date End Date Annalisa Christopher MD [address] [place] [address] [address] [place] [address] PCP - General 07/07/08 documented as of this encounter
--- OUTSIDE RECORDS SUMMARY | 2024-10-06 18:12 | XMS_ITS | Encounter Summary ---
Author Organization [facility] Address [address] [place] [address] Care Team Providers Care Form Maker Name Role Phone Annalisa Christopher MD Primary Care Provider [phone] Encounter Details Date Type Department Care Team (Late st Contact Info) Description 10/20/2023 External Device Data STL ABSTRACTION Provider, Abstract NO ADDRESS ON FILE Social History Tobacco Use Types Packs/Day Years Used Date Smoking Tobacco: Former Cigarettes Q uit: 07/09/2010 Smokeless Tobacco: Never Alcohol Use Standard Drinks/Week Comments No 0 (1 standard drink = 0.6 oz pur e alcohol) Sex and Gender Information Value Date Recorded Sex Assigned at Not on file Gender Identity Not on file Sexual Orientation Not on file documented as of this encounter Plan of Treatment Upcoming Encounters Date Type Department Care Team (Late st Contact Info) Description 04/25/2025 8:20 AM CDT Office Visit [facility] Primary Care - [facility] [address] [place] [address] [place] [phone] Annalisa Christopher MD [address] [place] [address] [place] [address] documented as of this encounter Visit Diagnoses Not on filedocumented in this encounter Care Teams Form Maker Relationship Specialty Start Date End Date Annalisa Christopher MD [address] [place] [address] [address] [place] [address] PCP - General 07/07/08 documented as of this encounter
--- OUTSIDE RECORDS SUMMARY | 2024-10-06 18:12 | XMS_ITS | Encounter Summary ---
Author Organization [facility] Address [address] [place] [address] Care Team Providers Care Gray Tender Name Role Phone Annailsa Christopher MD Primary Care Provider [phone] Reason for Visit * Reason Comments Med Refill Encounter Details Date Type Department Care Team (Late st Contact Info) Description 08/05/[address] [place] [phone] Annalisa Christopher MD [address] [place] [address] [address] [place] [address] PTSD (post-traumatic stress disorder) Social History Tobacco Use Types Packs/Day Years [...] Description 04/25/2025 8:20 AM CDT Office Visit [facility] [address] [place] [address] [address] [place] [address] Annalisa Christopher MD [address] [place] [address] [address] [place] [address] documented as of this encounter Visit Diagnoses Diagnosis PTSD (post-traumatic stress disorder) Posttraumatic stress disorder documented in this encounter Care Teams Gray Tender Relationship Specialty Start Date End Date Annalisa Christopher MD [address] [place] [phone] PCP - General 07/07/08 documented as of this encounter
--- OUTSIDE RECORDS SUMMARY | 2024-10-06 18:12 | XMS_ITS | Encounter Summary ---
Author Organization [facility] Address [address] [place] [address] Care Team Providers Care Children'S Tutor Nursery Name Role Phone Annalisa Christopher MD Primary Care Provider [phone] Encounter Details Date Type Department Care Team (Late st Contact Info) Description 12/26/2023 External Device Data STL ABSTRACTION Provider, Abstract [...] Description 04/25/2025 8:20 AM CDT Office Visit [facility] Primary Care - [facility] [address] [place] [address] [place] [address] Annalisa Christopher MD [address] [place] [address] [place] [address] documented as of this encounter Visit Diagnoses Not on filedocumented in this encounter Care Teams Children'S Tutor Nursery Relationship Specialty Start Date End Date Annalisa Christopher MD [address] [place] [address] [address] [place] [address] PCP - General 07/07/08 documented as of this encounter
--- OUTSIDE RECORDS SUMMARY | 2024-10-06 18:12 | XMS_ITS | Clinical Summary ---
Author Organization [facility] Address [address] [place] [address] Care Team Providers Care Box Lidder Name Role Phone Leah Santo MD Primary Care Provider Unavaila ble Source Comments [facility],non-owned Affiliates and Associated Physician Practices is amultiple site organization consisting of ambulatory clinics and hospital sitesin [place], [place], [place] and [place]. This disclosure is being madepursuant to the Care Everywhere program and may not contain all information available regarding this patient. Last updated 18.[facility] Allergies Active Allergy Reactions Criticality Noted Date Comments Sulfa Drugs 05/23/2017 Social History Tobacco Use Types Packs/Day Years Used Date Smoking Tobacco: Never Assessed Sex and Gender Information Value Date Recorded Sex Assigned at Not on file Gender Identity Not on file Sexual Orientation Not on file Plan of Treatment Health Maintenance Due Date Last Done Comments COLOGUARD (AGES 45-75) - COL ON CA SCREENING 1975 COLON MONITORING 1975 COLONOSCOPY - COLON CA SCREENING 1975 CT COLONOGRAPHY - COLON CA SCREENING 1975 Colorectal Cancer Screening 1975 FIT - COLON CA SCREENING 1975 FLEX SIG - COLON CA SCREENING 1975 LIPID TESTING 1975 MAMMOGRAM 1975 PAP SMEAR 1975 HIV SCREENING 1990 HEPATITIS C SCREENING 07/06/1993 DTAP/TDAP/TD VACCINES (1 - Tdap) 1994 HEPATITIS B VACCINE (1 of 3 - 19+ 3-dose series) 1994 DEPRESSION SCREENING 09/25/2023 COVID-19 VACCINE (1 - 2023-2 5 season) 2024 INFLUENZA VACCINE (#1) 2024 ZOSTER VACCINE (1 of 2) 2025 HIB VACCINE Aged Out No longer eligi ble based on patient's age to complete this topic HPV VACCINE Aged Out No longer eligi ble based on patient's age to complete this topic MENINGOCOCCAL VACCINE Aged Out No melisa jimmie eligible based on patient's age to complete this topic PNEUMOCOCCAL VACCINE Aged Out No long er eligible based on patient's age to complete this topic Care Teams Box Lidder Relationship Specialty Start Date End Date Leah Santo MD PCP - General Internal Medicine 05/23/17
--- OUTSIDE RECORDS SUMMARY | 2024-10-06 18:12 | XMS_ITS | Encounter Summary ---
Author Organization [facility] Address [address] [place] [address] Care Team Providers Care Core Layer Machine Operator Name Role Phone Annalisa Christopher MD Primary Care Provider [phone] Encounter Details Date Type Department Care Team (Late st Contact Info) Description 04/28/2024 Orders Only [facility] [address] [place] [address] [address] [place] [address] Pearl Junior NP [address] [facility] [address] [place] [address] Elevated LFTs (Primary Dx); Obesity (BMI 30.0-34.9); Mixed hyperlipidemia Social History Tobacco Use Types Packs/Day Years [...] 04/25/2025 8:20 AM CDT Office Visit [facility] [address] [facility] [address] [place] [address] Annalisa Christopher MD [address] [place] [address] [address] [place] [address] documented as of this encounter Procedures Procedure Name Priority Date/Time Associated Diagnosis Comments MICROALBUMIN/CREATINI NE RATIO, RANDOM UR Routine 07/05/2024 7:31 AM CDT Obesity (BMI 30.0-34.9) Mixed hyperlipidemia COMPREHENSIVE METABOLIC PANEL Routine 07/05/2024 7:28 AM CDT Elevated LFTs documented in this encounter Results * MICROALBUMIN/CREATININE RATIO, RANDOM UR (07/05/2024 7:31 AM CDT) Creatinine, Urine 183 20 - 275 mg/dL [facility] MICROALBUMIN, URINE 2.3 See Note: mg/dL [facility] Comment: Reference Range: Reference Range Not established MICROALBUMIN/CREAT RATIO, UR 13 <30 mg/g creat [facility] Comment: The ADA defines abnormalities in albumin excretion as follows: Albuminuria Category ?Result (mg/g creatinine) Normal to Mildly increased ?? <30 Moderately increased ? 30-299 Severely increased ? > OR = 300 The ADA recommends that at least two of three specimens collected within a 3-6 month period be abnormal before considering a patient to be within a diagnostic category. Test Performed at: [facility] [address] [place] [address] ??[id number] Albin Lewis MD Urine URINE SPECIMEN OBTAINED BY CLEAN CATCH PROCEDURE / Unknown 07/05/2024 7:31 AM CDT 07/05/2024 7:31 AM CDT Pearl Junior AMBULATORY SERVICE REPRESENTATIVE URINE ORDERABLES [facility] [phone] [facility] [[email or web address]] [facility] [address] [place] [address] * (ABNORMAL) COMPREHENSIVE METABOLIC PANEL (07/05/2024 7:28 AM CDT) GLUCOSE 113(H) 65 - 99 mg/dL [facility] Comment: ? Fasting reference interval For someone without known diabetes, a glucose value between 100 and 125 mg/dL is consistent with prediabetes and should be confirmed with a follow-up test. BUN 16 7 - 25 mg/dL [facility] CREATININE 0.82 0.50 - 0.99 mg/dL [facility] GFR 88 > OR = 60 mL/min/1. 73m2 [facility] BUN/CREAT RATIO SEE NOTE: (calc) [facility] Comment: ?? Not Reported: BUN and Creatinine are within ?? reference range. ? SODIUM 140 135 - 146 mmol/L [facility] POTASSIUM 4.3 3.5 - 5.3 mmol/L [facility] CHLORIDE 107 98 - 110 mmol/L [facility] CO2 25 20 - 32 mmol/L [facility] CALCIUM 9.2 8.6 - 10.2 mg/dL [facility] TOTAL PROTEIN 6.8 6.1 - 8.1 g/dL [facility] ALBUMIN 4.1 3.6 - 5.1 g/dL [facility] GLOBULIN 2.7 1.9 - 3.7 g/dL (calc) [facility] ALBUMIN/GLOBULIN RATIO 1.5 1.0 - 2.5 (calc) [facility] BILIRUBIN TOTAL 0.5 0.2 - 1.2 mg/dL [facility] ALKALINE PHOSPHATASE 98 31 - 125 U/L [facility] AST 17 10 - 35 U/L [facility] ALT 31(H) 6 - 29 U/L [facility] Comment: Test Performed at: [facility] [address] [facility] [facility] [facility] [phone] Albin Lewis MD Blood 07/05/2024 7:28 AM CDT 07/05/2024 7:29 AM CDT Pearl Junior NP CHEMISTRY ORDERABLE [facility] [phone] [facility] [address] [place] [address] documented in this encounter Visit Diagnoses Diagnosis Elevated LFTs- Primary Other abnormal blood chemistry Obesity (BMI 30.0-34.9) Obesity, unspecified Mixed hyperlipidemia documented in this encounter Care Teams Core Layer Machine Operator Relationship Specialty Start Date End Date Annalisa Christopher MD [address] [place] [address] PCP - General 07/07/08 documented as of this encounter
--- OUTSIDE RECORDS SUMMARY | 2024-10-06 18:12 | XMS_ITS | Encounter Summary ---
Author Organization [facility] Address [address] [place] [address] Care Team Providers Care Animal Maintenance Supervisor Name Role Phone Annalisa Christopher MD Primary Care Provider [phone] Encounter Details Date Type Department Care Team (Late st Contact Info) Description 09/06/2023 External Device Data STL ABSTRACTION Provider, Abstract [...] Description 04/25/2025 8:20 AM CDT Office Visit [facility] Primary Care - [facility] [address] [place] [address] [place] [address] Annalisa Christopher MD [address] [place] [address] [place] [address] documented as of this encounter Visit Diagnoses Not on filedocumented in this encounter Care Teams Animal Maintenance Supervisor Relationship Specialty Start Date End Date Annalisa Christopher MD [address] [place] [address] [address] [place] [address] PCP - General 07/07/08 documented as of this encounter
--- OUTSIDE RECORDS SUMMARY | 2024-10-06 18:12 | XMS_ITS | Encounter Summary ---
Author Organization [facility] Address [address] [place] [address] Care Team Providers Care Mobile Plant Operators Name Role Phone Annalisa Christopher MD Primary Care Provider [phone] Reason for Visit * Reason Comments Med Refill Encounter Details Date Type Department Care Team (Late st Contact Info) Description 01/27/2024 Refill [facility] [address] [place] [address] [place] [phone] Annalisa Christopher MD [address] [place] [address] [address] [place] [address] Mild intermittent asthma without complication [...] 04/25/2025 8:20 AM CDT Office Visit [facility] [address] [place] [address] [address] [place] [address] Annalisa Christopher MD [address] [place] [address] [address] [place] [address] documented as of this encounter Visit Diagnoses Diagnosis Mild intermittent asthma without complication Unspecified asthma documented in this encounter Care Teams Mobile Plant Operators Relationship Specialty Start Date End Date Annalisa Christopher MD [address] [facility] [address] [place] [phone] PCP - General 07/07/08 documented as of this encounter
--- OUTSIDE RECORDS SUMMARY | 2024-10-06 18:12 | XMS_ITS | Encounter Summary ---
Author Organization [facility] Address [address] [place] [address] Care Team Providers Care Laundrette Owner Name Role Phone Annalisa Christopher MD Primary Care Provider [phone] Encounter Details Date Type Department Care Team (Late st Contact Info) Description 10/22/2023 External Device Data [facility] ABSTRACTION Provider, Abstract [...] Description 04/25/2025 8:20 AM CDT Office Visit [facility] - [facility] [address] [place] [address] [place] [phone] Annalisa Christopher MD [address] [place] [address] [place] [phone] documented as of this encounter Visit Diagnoses Not on filedocumented in this encounter Care Teams Laundrette Owner Relationship Specialty Start Date End Date Annalisa Christopher MD [address] [place] [address] [address] [place] [address] PCP - General 07/07/08 documented as of this encounter
--- OUTSIDE RECORDS SUMMARY | 2024-10-06 18:12 | XMS_ITS | Encounter Summary ---
Author Organization [facility] Address [address] [place] [address] Care Team Providers Care Biztalk Administrator Name Role Phone Annalisa Christopher MD Primary Care Provider [phone] Encounter Details Date Type Department Care Team (Late st Contact Info) Description 10/21/2023 External Device Data [facility] ABSTRACTION Provider, Abstract [...] Description 04/25/2025 8:20 AM CDT Office Visit [facility] Primary Care - [facility] [address] [place] [address] [place] [phone] Annalisa Christopher MD [address] [place] [address] [place] [phone] documented as of this encounter Visit Diagnoses Not on filedocumented in this encounter Care Teams Biztalk Administrator Relationship Specialty Start Date End Date Annalisa Christopher MD [address] [place] [address] [address] [place] [address] PCP - General 07/07/08 documented as of this encounter
--- OUTSIDE RECORDS SUMMARY | 2024-10-06 18:12 | XMS_ITS | Encounter Summary ---
Author Organization [facility] Address [address] [place] [address] Care Team Providers Care Vacuum Drum Drier Operator Name Role Phone Annalisa Christopher MD Primary Care Provider [phone] Reason for Visit * Reason Comments Med Refill Encounter Details Date Type Department Care Team (Late st Contact Info) Description 12/29/[address] [place] [phone] Annalisa Christopher MD [address] [place] [address] [address] [place] [address] Mild intermittent asthma without complication [...] encounter Miscellaneous Notes * Telephone Encounter - mEely Cuadra - 12/29/2023 8:33 AM CDT GRIFFIN 04/19/23 documented in this encounter Plan of Treatment Upcoming Encounters Date Type Department Care Team (Late st Contact Info) Description 04/25/2025 8:20 AM CDT Office Visit [facility] [address] [facility] [address] [place] [phone] Annalisa Christopher MD [address] [place] [address] documented as of this encounter Visit Diagnoses Diagnosis Mild intermittent asthma without complication Unspecified asthma documented in this encounter Care Teams Vacuum Drum Drier Operator Relationship Specialty Start Date End Date Annalisa Christopher MD [address] [place] [address] PCP - General 07/07/08 documented as of this encounter
--- OUTSIDE RECORDS SUMMARY | 2024-10-06 18:12 | XMS_ITS | Encounter Summary ---
Author Organization [facility] Address [address] [place] [address] Care Team Providers Care Die Operator Name Role Phone Annalisa Christopher MD Primary Care Provider [phone] Reason for Visit * Reason Comments Physical Encounter Details Date Type Department Care Team (Late st Contact Info) Description 04/22/2024 12:00 PM CDT Office Visit [facility] Primary Care - [place] [id number] [facility] [address] [place] [phone] Pearl Junior, SAI [address] [facility] [address] [place] [address] Encounter for routine adult health examination with abnormal findings (Primary Dx); Encounter for colorectal cancer screening; Migraine without status migrainosus, not intractable, unspecified migraine type; Obesity (BMI 30.0-34.9); Mixed hyperlipidemia; Mild intermittent asthma without complication; Benign essential tremor; Screening for diabetes mellitus Social History Tobacco Use Types Packs/Day Years Used Date Smoking Tobacco: Former Cigarettes Q uit: 07/09/2010 Smokeless Tobacco: Never Tobacco Cessation:Counseling Given: Not Answered Alcohol Use Standard Drinks/Week Comments Yes 0 (1 standard drink = 0.6 oz pur e alcohol) Socially Sex and Gender Information Value Date Recorded Sex Assigned at Not on file Gender Identity Not on file Sexual Orientation Not on file documented as of this encounter Last Filed Vital Signs Vital Sign Reading Time Taken Comments Blood Pressure 118/84 04/22/2024 11:37 AM CDT Pulse 75 04/22/2024 11:37 AM CDT Temperature 36.4 ??C (97.5 ??F) 04/22/2024 11:37 AM C DT Respiratory Rate - - Oxygen Saturation 99% 04/22/2024 11:37 AM CDT Inhaled Oxygen Concentration - - Weight 93.5 kg (206 lb 3.2 oz) 04/22/2024 11:37 AM CDT Height 170.2 cm (5' 7 ) 04/22/2024 11:37 AM CDT Body Mass Index 32.3 04/22/2024 11:37 AM CDT documented in this encounter Progress Notes * Pearl Junior, SAI - 04/22/2024 11:53 AM CDT 04/22/24 BP 118/84 (BP Location: Right arm, Patient Position (BP): Sitting, BP Cuff Size: Large Adult) Pulse 75 Temp 97.5 ??F (36.4 ??C) (Temporal) Ht 5' 7 (1.702 m) Wt 93.5 kg (206 lb 3.2 oz) [id number]% BMI 32.30 kg/m?? HPI: Fabiana Pryor is a 48 y.o. female that presents today for Physical Went to [facility] in [place], [place].. had hormones checked and began HRT. Taking T3, Testosterone, and progesterone through this clinic. - feels more energy, no more hot flashes - would like medications to come from our office as this is expensive and her insurance covers the medications. Review of Systems Constitutional: Positive for malaise/fatigue. Negative for chills and fever. HENT: Negative. Negative for congestion. Eyes: Negative. Respiratory: Negative. Negative for cough and shortness of breath. Cardiovascular: Negative. Negative for chest pain, palpitations and leg swelling. Gastrointestinal: Negative. Negative for abdominal pain and diarrhea. Genitourinary: Negative. Musculoskeletal: Negative. Skin: Negative. Neurological: Positive for headaches. Psychiatric/Behavioral: Negative. Physical Exam Constitutional: General: She is not in acute distress. Appearance: Normal appearance. She is overweight. She is not ill-appearing. HENT: Head: Normocephalic and atraumatic. Right Ear: Tympanic membrane and external ear normal. Left Ear: Tympanic membrane and external ear normal. Eyes: Conjunctiva/sclera: Conjunctivae normal. Pupils: Pupils are equal, round, and reactive to light. Cardiovascular: Rate and Rhythm: Normal rate and regular rhythm. Pulses: Normal pulses. Heart sounds: Normal heart sounds. No murmur heard. Pulmonary: Effort: Pulmonary effort is normal. No respiratory distress. Breath sounds: Normal breath sounds. No wheezing. Abdominal: General: Bowel sounds are normal. There is no distension. Palpations: Abdomen is soft. Musculoskeletal: General: Normal range of motion. Cervical back: Normal range of motion. Lymphadenopathy: Cervical: No cervical adenopathy. Skin: General: Skin is warm and dry. Capillary Refill: Capillary refill takes less than 2 seconds. Neurological: General: No focal deficit present. Mental Status: She is alert and oriented to person, place, and time. Psychiatric: Mood and Affect: Mood normal. Behavior: Behavior normal. Procedures Lab review: Orders written for new lab studies as appropriate; see orders ICD-10-CM ICD-9-CM 1. Encounter for routine adult health examination with abnormal findings Z00.01 V70.0 The majority of today's visit was spent discussing age-specific health maintenance issues and the utility of a healthy diet and exercise regimen. -Exercise: working on the form -Immunizations: PNA: Prevnar 20 at 65 or 15 followed by 23 1 year later Flu: Recommend annually Tdap: Every 10 years Shingles: At age 50 COVID-19 Vaccination: recommended RSV: age over 60 recommended -Colonoscopy: cologuard ordered -Hep C screening: Once adults aged 18-79 -Continue annual eye exams and semi-annual dental exams -Counseled on routine diet and exercise -Tobacco Use: nonsmoker -ETOH Use: socially -Lung Cancer Screening (Annual low-dose CT) Adults 50 - 80 w/ >30 pack-year smoking hx who currently smoke or have quit w/in 15 yrs: Not indicated -DEXA: Once Age 65 -Mammogram: Due once yearly starting at age 40 -Pap smear: follows with OBGYN- Dr. Virgen 2. Encounter for colorectal cancer screening Z12.11 V76.51 COLON CANCER SCREEN, STOOL DNA Z12.12 V76.41 COLON CANCER SCREEN, STOOL DNA 3. Migraine without status migrainosus, not intractable, unspecified migraine type G43.909 346.90 COMPREHENSIVE METABOLIC PANEL - check labs - 1-2 a month with the weather typically - starts with visual floaters-- promethazine prn helps -propranolol- continue 4. Obesity (BMI 30.0-34.9) E66.9 278.00 COMPREHENSIVE METABOLIC PANEL VITAMIN D 25 HYDROXY - Encourage patient to pursue daily exercise of at least 30 minutes per day and eat a healthy diet-I.e. Mediterranean diet 5. Mixed hyperlipidemia E78.2 272.2 LIPID PANEL - check labs - The 10-year ASCVD risk score (Leslie DELATORRE, et al., 2019) is: 1.1% Values used to calculate the score: Age: 48 years Sex: Female Is Non- : No Diabetic: No Tobacco smoker: No Systolic Blood Pressure: 118 mmHg Is BP treated: No HDL Cholesterol: 52 mg/dL Total Cholesterol: 215 mg/dL 6. Mild intermittent asthma without complication J45.20 493.90 - stable with current regimen - Breo + albuterol prn 7. Benign essential tremor G25.0 333.1 - continue propranolol 8. Screening for diabetes mellitus Z13.1 V77.1 HEMOGLOBIN A1C COMPREHENSIVE METABOLIC PANEL Past Medical History: Diagnosis Date Allergic rhinitis 08/05/2013 Extrinsic asthma, unspecified 1979 Family history of allergic disorder succinylcholine Migraine 10/07/2010 Mixed hyperlipidemia 10/12/2018 PTSD (post-traumatic stress disorder) Hx of stillbirth at age 25, patient has 2 living children 7 pregnancies Temporomandibular joint disorders, unspecified occasional jaw pain/ rare popping Past Surgical History: Procedure Laterality Date HX BREAST AUGMENTATION 2006 [facility] [place] DELIVERY ONLY 2003 TX DELIVERY ONLY 08/31/2011 SECTION performed by Douglas Patricio MD at [facility] L&D TX DILATION & CURETTAGE DX&/THER NONOBSTETRIC 09/08/2010 DILATATION AND CURETTAGE SUCTION performed by DOUGLAS PATRICIO at [facility] Current Outpatient Medications Medication Sig Dispense Refill fluticasone furoate-vilanteroL (BREO ELLIPTA) 100-25 mcg/dose Disk with Device inhale 1 puff by mouth every day 60 Each 2 escitalopram oxalate (LEXAPRO) 10 mg tablet take 1 tablet by mouth every day 30 Tablet 10 promethazine (PHENERGAN) 25 mg tablet TAKE 1 TABLET BY MOUTH EVERY 6 HOURS NEEDED FOR NAUSEA/EMESIS. 30 Tablet 0 albuterol sulfate 90 mcg/Actuation inhaler TAKE 2 PUFFS EVERY 6 HOURS NEEDED FOR SHORTNESS OF BREATH. 8.5 Gram 11 propranoloL (INDERAL) 20 mg tablet Take 1 Tablet (20 mg) by mouth 3 times daily. 90 Tablet 11 Peak Flow Meter Device Dx asthma. 1 Device 0 fluticasone (FLONASE) 50 mcg/spray Holden, Suspension Administer 2 Sprays in each nostril daily. cetirizine-pseudoephedrine sr 12 hour (ZyrTEC-D) 5-120 mg tablet Take 1 Tablet by mouth 2 times daily. 60 Tablet 3 diazePAM (VALIUM) 5 mg tablet Take 1 Tablet (5 mg) by mouth 1 time daily as needed for Anxiety. 20 Tablet 0 levonorgestreL (MIRENA) 20 mcg/24 hours (7 yrs) 52 mg IUD by Intrauterine route. tamsulosin (FLOMAX) 0.4 mg capsule TAKE 1 CAPSULE BY MOUTH EVERY DAY (Patient not taking: Reported on 04/22/2024) 30 Capsule 0 No current facility-administered medications for this visit. Tobacco Counseling She is not a tobacco/nicotine user. Return in about 1 year (around 04/22/2025) for Wellness/Preventative (733 or 232). Depression Screen Positive: PHQ-2 score >= 3 or PHQ-9 score >= 9 PHQ-2 Total: 0 (04/22/2024 11:41 AM) DEPRESSION PLAN OF CARE Her depression screen was negative. FALL RISK She has had no falls in the past year. Patient voiced an understanding of the diagnosis and treatment plan as outlined above Pearl Junior NP This note (or part of it) was transcribed using Stypi speaking computerized voice recognition without a human tank operator. This report may or may not have been adjusted for typographical, grammatical and syntax errors. documented in this encounter Miscellaneous Notes * Result Encounter Note - Pearl Junior NP - 05/06/2024 11:20 PM CDT Colon cancer screening is normal. Repeat in 3 years documented in this encounter Plan of Treatment Upcoming Encounters Date Type Department Care Team (Late st Contact Info) Description 04/25/2025 8:20 AM CDT Office Visit [facility] Primary Care - [facility] [address] [place] [address] Annalisa Christopher MD [address] [place] [address] documented as of this encounter Procedures Procedure Name Priority Date/Time Associated Diagnosis Comments COLON CANCER SCREEN, STOOL DNA Routine 04/26/2024 2:42 PM CDT Encounter for colorectal cancer screening VITAMIN D 25 HYDROXY Routine 04/24/2024 7:16 AM CDT Obesity (BMI 30.0-34.9) HEMOGLOBIN A1C Routine 04/24/2024 7:16 AM CDT Screening for diabetes mellitus LIPID PANEL Routine 04/24/2024 7:16 AM CDT Mixed hyperlipidemia COMPREHENSIVE METABOLIC PANEL Routine 04/24/2024 7:16 AM CDT Migraine without status migrainosus, not intractable, unspecified migraine type Obesity (BMI 30.0-34.9) Screening for diabetes mellitus documented in this encounter Results * COLON CANCER SCREEN, STOOL DNA (04/26/2024 2:42 PM CDT) COLOGUARD RESULT Negative Negative FIRE1 Comment: NEGATIVE TEST RESULT. A negative Cologuard result indicates a low likelihood that a colorectal cancer (CRC) or advanced adenoma (adenomatous polyps with more advanced pre-malignant features) ??is present. The chance that a person with a negative Cologuard test has a colorectal cancer is less than 1 in 1500 (negative predictive value >99.9%) or has an ??advanced adenoma is less than ??5.3% (negative predictive value 94.7%). These data are based on a prospective cross-sectional study of 10,000 individuals at average risk for colorectal cancer who were screened with both Cologuard and colonoscopy. (Diane Rodriguez. velma al, N Engl J Med 2014;370(14):7360-0949) The normal value (reference range) for this assay is negative. COLOGUARD RE-SCREENING RECOMMENDATION: Periodic colorectal cancer screening is an important part of preventive healthcare for asymptomatic individuals at average risk for colorectal cancer. ??Following a negative Cologuard result, the [place] Cancer Society and U.S. Multi-Society Task Force screening guidelines recommend a Cologuard re-screening interval of 3 years. References: [place] Cancer Society Guideline for Colorectal Cancer Screening: https://www.cancer.org/cancer/cyrij-jpyswh-irjtlm/zaklslkgg-hpylzizrj-rthuubr/ac s-rec ommendations.html.; Compa DELATORRE, Santos CARO, Cass SungK, Colorectal Cancer Screening: Recommendations for Physicians and Patients from the U.S. Multi-Society Task Force on Colorectal Cancer Screening , Am J Gastroenterology 2017; 112:9134-7653. TEST DESCRIPTION: Composite algorithmic analysis of stool DNA-biomarkers with hemoglobin immunoassay. ?? Quantitative values of individual biomarkers are not reportable and are not associated with individual biomarker result reference ranges. Cologuard is intended for colorectal cancer screening of adults of either sex, 45 years or older, who are at average-risk for colorectal cancer (CRC). Cologuard has been approved for use by the U.S. FDA. The performance of Cologuard was established in a cross sectional study of average-risk adults aged 50-84. Cologuard performance in patients ages 45 to 49 years was estimated by sub-group analysis of near-age groups. Colonoscopies performed for a positive result may find as the most clinically significant lesion: colorectal cancer [4.0%], advanced adenoma (including sessile serrated polyps greater than or equal to 1cm diameter) [20%] or non- advanced adenoma [31%]; or no colorectal neoplasia [45%]. These estimates are derived from a prospective cross-sectional screening study of 10,000 individuals at average risk for colorectal cancer who were screened with both Cologuard and colonoscopy. (Diane Rodriguez. velma al, N Engl J Med 2014;370(14):0997-0995.) Cologuard may produce a false negative or false positive result (no colorectal cancer or precancerous polyp present at colonoscopy follow up). A negative Cologuard test result does not guarantee the absence of CRC or advanced adenoma (pre-cancer). The current Cologuard screening interval is every 3 years. ([place] Cancer Society and U.S. Multi-Society Task Force). Cologuard performance data in a 10,000 patient pivotal study using colonoscopy as the reference method can be accessed at the following location: www.Open Wager/results. Additional description of the Cologuard test process, warnings and precautions can be found at www.cologBilleord.Yododo. Stool STOOL SPECIMEN / Unknown 04/26/2024 2:42 PM CDT 04/27/2024 11:24 AM CDT Pearl Junior RESEARCH ENGINEER MARINE EQUIPMENT BODY FLUIDS AND STO OLS [facility] CLIA # [id number] [address] , [address] [place] [address] * VITAMIN D 25 HYDROXY (04/24/2024 7:16 AM CDT) VITAMIN D, 25 OH, TOTAL 87 30 - 100 ng/mL [facility] [facility] Comment: Vitamin D Status ? 25-OH Vitamin D: Deficiency: ?<20 ng/mL Insufficiency: ? 20 - 29 ng/mL Optimal: ? > or = 30 ng/mL For 25-OH Vitamin D testing on patients on D2-supplementation and patients for whom quantitation of D2 and D3 fractions is required, the [employer]() 25-OH VIT D, (D2,D3), LC/MS/MS is recommended: order code 42126 (patients >2yrs). See Note 1 Note 1 For additional information, please refer to http://education.[employer].Yododo/faq/WMV562 (This link is being provided for informational/ educational purposes only.) FASTING:YES FASTING: YES Test Performed at: [facility] [address] [place], [place] ??[phone] Albin Lewis MD Blood 04/24/2024 7:16 AM CDT 04/24/2024 7:17 AM CDT Pearl Junior RESEARCH ENGINEER MARINE EQUIPMENT CHEMISTRY ORDERABLE S [facility] [phone] [facility] [address] [place] [address] * (ABNORMAL) COMPREHENSIVE METABOLIC PANEL (04/24/2024 7:16 AM CDT) GLUCOSE 116(H) 65 - 99 mg/dL [facility] Comment: ? Fasting reference interval For someone without known diabetes, a glucose value between 100 and 125 mg/dL is consistent with prediabetes and should be confirmed with a follow-up test. BUN 11 7 - 25 mg/dL [facility] CREATININE 0.92 0.50 - 0.99 mg/dL [facility] GFR 77 > OR = 60 mL/min/1. 73m2 [facility] BUN/CREAT RATIO SEE NOTE: (calc) [facility] Comment: ?? Not Reported: BUN and Creatinine are within ?? reference range. ? SODIUM 137 135 - 146 mmol/L [facility] POTASSIUM 4.4 3.5 - 5.3 mmol/L [facility] CHLORIDE 105 98 - 110 mmol/L [facility] CO2 25 20 - 32 mmol/L [facility] CALCIUM 9.5 8.6 - 10.2 mg/dL [facility] TOTAL PROTEIN 6.8 6.1 - 8.1 g/dL [facility] ALBUMIN 4.2 3.6 - 5.1 g/dL [facility] GLOBULIN 2.6 1.9 - 3.7 g/dL (calc) [facility] ALBUMIN/GLOBULIN RATIO 1.6 1.0 - 2.5 (calc) [facility] BILIRUBIN TOTAL 0.4 0.2 - 1.2 mg/dL [facility] ALKALINE PHOSPHATASE 95 31 - 125 U/L [facility] AST 19 10 - 35 U/L [facility] ALT 31(H) 6 - 29 U/L [facility] Comment: FASTING:YES FASTING: YES Test Performed at: [facility] ??[phone] Albin Lewis MD Blood 04/24/2024 7:16 AM CDT 04/24/2024 7:17 AM CDT Pearl Junior NP CHEMISTRY ORDERABLE S [facility] [phone] [facility] [phone] * (ABNORMAL) HEMOGLOBIN A1C (04/24/2024 7:16 AM CDT) HEMOGLOBIN A1C 5.7(H) <5.7 % of total Hgb [facility] Comment: For someone without known diabetes, a hemoglobin A1c value between 5.7% and 6.4% is consistent with prediabetes and should be confirmed with a follow-up test. For someone with known diabetes, a value <7% indicates that their diabetes is well controlled. A1c targets should be individualized based on duration of diabetes, age, comorbid conditions, and other considerations. This assay result is consistent with an increased risk of diabetes. Currently, no consensus exists regarding use of hemoglobin A1c for diagnosis of diabetes for children. ESTIMATED AVERAGE GLUCOSE (MG/DL) 117 mg/dL [facility] ESTIMATED AVERAGE GLUCOSE (MMOL/L) 6.5 mmol/L [facility] Comment: ? This test was performed on the Cadence halley c503 platform. Effective 12/11/23, a change in test platforms from the Baker Trace Clerk to the Cadence halley c503 may have shifted HbA1c results compared to historical results. Based on laboratory validation testing conducted at [facility], the Cadence platform relative to the Baker platform had an average increase in HbA1c value of < or = 0.3%. This difference is within accepted variability established by the National Glycohemoglobin Standardization Program. Note that not all individuals will have had a shift in their results and direct comparisons between historical and current results for testing conducted on different platforms is not recommended. FASTING:YES FASTING: YES Test Performed at: [place] [address] [place] ??[phone] Albin Lewis Blood 04/24/2024 7:16 AM CDT 04/24/2024 7:17 AM CDT Pearl Junior NP CHEMISTRY ORDERABLE S [facility] [phone] [facility] [place] [address] [place] [phone] * (ABNORMAL) LIPID PANEL (04/24/2024 7:16 AM CDT) CHOLESTEROL 201(H) <200 mg/dL [facility] HDL 54 > OR = 50 mg/dL [facility] TRIGLYCERIDE 85 <150 mg/dL [facility] LDL CALCULATED 129(H) mg/dL (calc) [facility] Comment: Reference range: <100 Desirable range <100 mg/dL for primary prevention; ?? <70 mg/dL for patients with CHD or diabetic patients with > or = 2 CHD risk factors. LDL-C is now calculated using the Thony calculation, which is a validated novel method providing better accuracy than the Friedewald equation in the estimation of LDL-C. oBris COLEMAN et al. TONJA. 2013;310(19): 3647-8538 (http://education.[employer].Yododo/faq/JTP048) CHOL/HDL RATIO 3.7 <5.0 (calc) [facility] NON-HDL CHOLESTEROL 147(H) <130 mg/dL (calc) [facility] Comment: For patients with diabetes plus 1 major ASCVD risk factor, treating to a non-HDL-C goal of <100 mg/dL (LDL-C of <70 mg/dL) is considered a therapeutic option. Test Performed at: [facility] [address] [place], [place] ??[phone] Albin Lewis MD Blood 04/24/2024 7:16 AM CDT 04/24/2024 7:17 AM CDT Pearl Junior NP CHEMISTRY ORDERABLE S [facility] [phone] [facility] [address] [place] [address] documented in this encounter Visit Diagnoses Diagnosis Encounter for routine adult health examination with abnormal findings- Primary Encounter for colorectal cancer screening Special screening for malignant neoplasms, colon Migraine without status migrainosus, not intractable, unspecified migraine type Obesity (BMI 30.0-34.9) Obesity, unspecified Mixed hyperlipidemia Mild intermittent asthma without complication Unspecified asthma Benign essential tremor Essential and other specified forms of tremor Screening for diabetes mellitus documented in this encounter Care Teams Die Operator Relationship Specialty Start Date End Date Annalisa Christopher MD [address] [facility] [address] [place] [address] PCP - General 07/07/08 documented as of this encounter
--- OUTSIDE RECORDS SUMMARY | 2024-10-06 18:12 | XMS_ITS | Clinical Summary ---
Author Organization [facility] Address [address] [place] [address] Care Team Providers Care Galley Hand Name Role Phone Annalisa Christopher MD Primary Care Provider [phone] Allergies Active Allergy Reactions Criticality Noted Date Comments Sulfa (Sulfonamide Antibiotics) Hives High 11/2007 Medications Medication Sig Dispensed Refills Start Date End Date Status levonorgestreL (MIRENA) 20 mcg/24 hours (7 yrs) 52 mg IUD by Intrauterine route. Active diazePAM (VALIUM) 5 mg tabletIndications:P TSD (post-traumatic stress disorder) Take 1 Tablet (5 mg) by mouth 1 time daily as needed for Anxiety. 20 Tablet 0 06/06/2016 Active cetirizine-pseudoep hedrine sr 12 hour (ZyrTEC-D) 5-120 mg tabletIndications:A llergic rhinitis due to pollen, unspecified rhinitis seasonality Take 1 Tablet by mouth 2 times daily. 60 Tablet 3 05/31/2017 Active fluticasone (FLONASE) 50 mcg/spray [place], Suspension Administer 2 Sprays in each nostril daily. Active Peak Flow Meter DeviceIndications:M ild intermittent asthma without complication Dx asthma. 1 Device 03/29/2019 Active tamsulosin (FLOMAX) 0.4 mg capsuleIndications: Nephrolithiasis TAKE 1 CAPSULE BY MOUTH EVERY DAY 30 Capsule 08/16/2021 Active Additional Information Patient not taking.Reported on 04/22/2024 albuterol sulfate 90 mcg/Actuation inhalerIndications: Mild intermittent asthma without complication TAKE 2 PUFFS EVERY 6 HOURS NEEDED FOR SHORTNESS OF BREATH. 8.5 Gram 11 05/10/2022 Active promethazine (PHENERGAN) 25 mg tabletIndications:M igraine without status migrainosus, not intractable, unspecified migraine type TAKE 1 TABLET BY MOUTH EVERY 6 HOURS NEEDED FOR NAUSEA/EMESIS. 30 Tablet 05/10/2023 Active propranoloL (INDERAL) 20 mg tabletIndications:B enign essential tremor Take 1 Tablet (20 mg) by mouth 3 times daily. 90 Tablet 11 05/02/2024 Active escitalopram oxalate (LEXAPRO) 10 mg tabletIndications:P TSD (post-traumatic stress disorder) TAKE 1 TABLET BY MOUTH EVERY DAY 100 Tablet 3 07/17/2024 Active fluticasone furoate-vilanteroL (BREO ELLIPTA) 100-25 mcg/dose Disk with DeviceIndications:M ild intermittent asthma without complication INHALE 1 PUFF BY MOUTH EVERY DAY 60 Each 2 08/02/2024 Active Active Problems Problem Noted Date Diagnosed Date Prediabetes 07/18/2024 Obesity (BMI 30.0-34.9) 04/22/2023 Benign essential tremor 04/29/2022 Mixed hyperlipidemia 10/12/2018 Allergic rhinitis 08/05/2013 Migraine 10/07/2010 Asthma Resolved Problems Problem Noted Date Diagnosed Date Resolved Date Acute bacterial conjunctivitis of both eyes 12/17/2015 06/06/2016 Recurrent acute serous otiti s media of both ears 12/17/2015 06/06/2016 Acute recurrent maxillary sinusitis 12/17/2015 06/06/2016 Malaise and fatigue 10/08/2013 06/06/20 16 S/P 08/31, GHTN 08/31/2011 Increased blood pressure and swelling during 08/30/2011 08/30/2011 GHTN, ctxns, h/o stillbirth, asthma, RCS 08/31 @ 1245 08/30/2011 09/13/2011 History of section 02/20/2011 09/13/2011 demise 02/20/2011 09/13/2011 Migraine 10/07/2010 03/05/2015 Acute upper respiratory infe ctions of unspecified site 12/27/2007 10/07/2010 Anxiety state, unspecified 12/27/2007 0 03/05/2015 Iron deficiency anemia secon ching to blood loss (chronic) 12/27/2007 11/09/2011 PTSD (post-traumatic stress disorder) 10/12/2018 Overview (06/06/2016): Hx of stillbirth at age 25, patient has 2 living children 7 pregnancies Encounters Date Type Department Care Team Description 10/01/2024 External Device Data STL ABSTRACTION Provider, Abstract 09/17/2024 Telephone [facility] [address] [place] [phone] Annalisa Christopher MD Clinical Consult Before Scheduling 08/02/2024 Refill [facility] [address] [place] [phone] Annalisa Christopher MD Mild intermittent asthma without complication 07/29/2024 External Device Data STL ABSTRACTION Provider, Abstract 07/18/2024 9:40 AM CDT Office Visit [facility] [address] [place] [phone] Annalisa Christopher MD Acute non-recurrent maxillary sinusitis (Primary Dx) 07/18/2024 Telephone [facility] [address] [place] [phone] Annalisa Christopher MD Clinical Consult Before Scheduling 07/17/2024 Refill [facility] [address] [place] [phone] Annalisa Christopher MD PTSD (post-traumatic stress disorder) 07/09/2024 External Device Data ST[facility] ABSTRACTION Provider, Abstract from Last 3 Months Immunizations Name Administration Dates Next Due (ADACEL/BOOSTRIX)(10 YR UP) TDAP VACCINE, 0.5ML, IM 04/19/2023,09/03/2011 (COMIRNATY)(12 YR UP) COVID- 19 VACCINE, MRNA, SPIKE PROTEIN, LNP, MIRELA(PF) 30 MCG/0.3 ML IM SUSP 06/28/2024 (MAGNUS) COVID-19 VACCINE - EMERGENCY USE AUTHORIZATION, AD26,COV2S(PF) 0.5 ML IM SUSP 06/18/2021 (PREVNAR 20)(6 WKS UP) PNEUM OCOCCAL CONJUGATE VACCINE 20-VALENT (PCV20), POLYSACCHARIDE [id number] CONJUGATE, ADJUVANT 0.5 ML (PF) IM 04/29/2022 (SPIKEVAX) (12 YRS UP PRIMAR Y SERIES) COVID-19 VACCINE - MRNA-1273(PF) 100 MCG/0.5 ML IM SUSP 12/04/2020,09/14/2000 INFLUENZA VACCINE QUADRIVALE NT 6 MOS UP CELL DERIVED PF IM 06/03/2019 INFLUENZA VACCINE QUADRIVALENT 6 MOS UP PF IM ,08/06/2018 INFLUENZA VACCINE TRIVALENT SPLIT VIRUS, (6 MOS UP), 0.5ML (PF), IM 06/28/2024 Influenza Seasonal Unspecified Formulation IM ,05/31/2017 Influenza Vaccine Split 3+ Yrs IM 06/23/2014 Skin Test TB 05/28/2015 Family History Medical History Relation Name Comments Other Brother Crohn's Healthy Daughter 1 Jeanette Heart Disease Father [place] 60's Hypertension Father Stroke Father Diabetes Mother Heart Disease Mother Breast Cancer Neg Hx Celiac Disease Neg Hx Colon Cancer Neg Hx Crohn's Disease Neg Hx Inflammatory Bowel Disease Neg Hx Ovarian Cancer Neg Hx Ulcerative Colitis Neg Hx Relation Name Status Comments Brother Alive Daughter 1 Jeanette Alive Daughter 2 Nguyen Alive Father Alive Maternal Grandfather Maternal Grandmother Mother Alive Paternal Grandfather Paternal Grandmother Social History Tobacco Use Types Packs/Day Years Used Date Smoking Tobacco: Former Cigarettes Q uit: 07/09/2010 Smokeless Tobacco: Never Tobacco Cessation:Counseling Given: No Alcohol Use Standard Drinks/Week Comments Yes 0 (1 standard drink = 0.6 oz pur e alcohol) Socially Sex and Gender Information Value Date Recorded Sex Assigned at Not on file Gender Identity Not on file Sexual Orientation Not on file Last Filed Vital Signs Vital Sign Reading Time Taken Comments Blood Pressure 114/86 07/18/2024 10:15 AM CDT Pulse 84 07/18/2024 10:15 AM CDT Temperature 36.9 ??C (98.4 ??F) 07/18/2024 10:15 AM C DT Respiratory Rate 16 07/28/2016 9:48 AM CDT Oxygen Saturation 98% 07/18/2024 10:15 AM CDT Inhaled Oxygen Concentration - - Weight 88.5 kg (195 lb 3.2 oz) 07/18/2024 10:15 AM CDT Height 170.2 cm (5' 7 ) 07/18/2024 10:15 AM CDT Body Mass Index 30.57 07/18/2024 10:15 AM CDT Plan of Treatment Upcoming Encounters Date Type Department Care Team (Late st Contact Info) Description 04/25/2025 8:20 AM CDT Office Visit [facility] [address] [place] [address] Annalisa Christopher MD [address] [place] [address] Health Maintenance Due Date Last Done Comments HEPATITIS B VACCINES (1 of 3 - 19+ 3-dose series) 1994 COLORECTAL SCREENING 2020 FIT/FOBT Q 1 year 2020 Flex Sig/CT Colonography Q 5 years 2020 BREAST CANCER SCREENING 02/22/2023 02/22/2022, 03/29 Preventative Visit- Commercial 09/25/2024 0 04/22/2024, 04/19/2023, 04/29/2022, Additional history exists CERVICAL CANCER SCREENING 01/05/20252021 (Previously completed), 09/25/2014, 02/01/2011, Additional history exists Pre-Diabetes and Diabetes Screening 04/24/2027 04/24/2024, 04/19/2023, 10/22/2020, Additional history exists Colorectal Cancer Screening 04/26/2027 FIT-DNA Q 3 years 04/26/2027 04/26/2024 DTAP/TDAP/TD VACCINES (3 - T d or Tdap) 04/19/2033 04/19/2023, 09/03/2011 PNEUMOCOCCAL VACCINE 0-64 YEARS Completed 2 COVID-19 Vaccine Completed 06/28/2024, , 12/04/2020, Additional history exists INFLUENZA VACCINE Completed 06/28/2024, , 05/08/2020, Additional history exists Procedures Procedure Name Priority Date/Time Associated Diagnosis Comments COLON CANCER SCREEN, STOOL DNA Routine 04/26/2024 2:42 PM CDT Encounter for colorectal cancer screening HEMOGLOBIN A1C Routine 04/24/2024 7:16 AM CDT Screening for diabetes mellitus MAMMO SCREENING BILAT Routine 02/22/2022 CERV/VAG CYTOPATH, SUREPATH W/RFLX HPV Routine 02/01/2011 10:43 AM CDT Routine gynecological examination from Last 3 Months or Most Recently Relevant to Health Maintenance Results * COLON CANCER SCREEN, STOOL DNA (04/26/2024 2:42 PM CDT) COLOGUARD RESULT Negative Negative [facility] Comment: NEGATIVE TEST RESULT. A negative Cologuard [...] screened with both Cologuard and colonoscopy. (Diane Panchal al, N Engl J Med 2014;370(14):6181-1751) The normal value (reference range) for this assay is negative. COLOGUARD RE-SCREENING RECOMMENDATION: Periodic colorectal cancer screening is an important part of preventive healthcare for asymptomatic individuals at average risk for colorectal cancer. ??Following a negative Cologuard result, the [employer] Cancer Society and U.S. Multi-Society Task Force screening guidelines recommend a Cologuard re-screening interval of 3 years. References: [employer] Cancer Society Guideline for Colorectal Cancer Screening: https://www.cancer.org/cancer/nqamh-kyhbjo-acfqfq/epecqnyvv-vwxhufbaa-puwsfux/ac s-rec ommendations.html.; Compa DK, Sanots CR, Cass PORTER, Colorectal Cancer Screening: Recommendations for Physicians and Patients from the U.S. Multi-Society Task Force on Colorectal Cancer Screening , Am J Gastroenterology 2017; 112:1446-7771. TEST DESCRIPTION: Composite algorithmic analysis of stool [...] screened with both Cologuard and colonoscopy. (Diane De La O et al, N Engl J Med 2014;370(14):4395-3609.) Cologuard may produce a false negative or false positive result (no colorectal cancer or precancerous polyp present at colonoscopy follow up). A negative Cologuard test result does not guarantee the absence of CRC or advanced adenoma (pre-cancer). The current Cologuard screening interval is every 3 years. ([employer] Cancer Society and U.S. Multi-Society Task Force). Cologuard performance data in a 10,000 patient pivotal study using colonoscopy as the reference method can be accessed at the following location: www.[employer].com/results. Additional description of the Cologuard test process, warnings and precautions can be found at www.[employer].com. Stool STOOL SPECIMEN / Unknown 04/26/2024 2:42 PM CDT 04/27/2024 11:24 AM CDT Pearl Junior NP BODY FLUIDS AND STO OLS [facility] CLIA # [id number] [address] , [address] [place] [address] * (ABNORMAL) HEMOGLOBIN A1C (04/24/2024 7:16 AM CDT) HEMOGLOBIN A1C 5.7(H) <5.7 % of total Hgb [facility] Comment: For someone without known diabetes, [...] children. ESTIMATED AVERAGE GLUCOSE (MG/DL) 117 mg/dL [facility] ESTIMATED AVERAGE GLUCOSE (MMOL/L) 6.5 mmol/L [facility] Comment: ? This test was performed on the Cadence halley c503 platform. Effective 12/11/23, a change in test platforms from the [employer] to the Cadenec halley c503 may have shifted HbA1c results compared to historical results. Based on laboratory validation testing conducted at [facility], the Cadence platform relative to the Baker [...] recommended. FASTING:YES FASTING: YES Test Performed at: [facility] [address] [place], [place] ??[address] [facility]Rut Thi Vo Blood 04/24/2024 7:16 AM CDT 04/24/2024 7:17 AM CDT Pearl Junior INSPECTOR MATERIALS AND PROCESSES CHEMISTRY ORDERABLE S [facility] [phone] [facility] [address] [place] [address] * MAMMO SCREENING BILAT (02/22/2022) Anatomical Region Laterality Modality Breast Bilateral Other Abstract Provider MAMMO ORDERABLES * CERV/VAG CYTOPATH, SUREPATH W/RFLX HPV (02/01/2011 10:43 AM CDT) CLINICAL INFORMATION [facility] PREV PAP: 10 22 10 [facility] LAST MENSTRUAL PERIOD 12 13 11 [facility] PAP INTERP Negative for intraepithelial lesion or malignancy. [facility] Pap Comment Based on the cytology result, reflex High Risk HPV DNA testing was not performed. [facility] ADEQUACY: Satisfactory for evaluation. Endocervical/trans formation zone component present. [facility] SOURCE [facility] CYTOTECHNOLOGI ST: MMW, CT(ASCP) [facility] Comment: ? Lab test performed by: [facility] [address] [address] [place] DO PREV BX: Information not provided [facility] REPORT STATUS FINAL [facility] Endocervical 02/01/2011 10:4 3 AM CDT 02/01/2011 2:10 PM CDT Comment:ENDOCERVICAL Douglas Patricio MD PATHOLOGY/CYTOLOGY O RDERABLES [facility] CLIA# [id number] [address] [place] [address] from Last 3 Months or Most Recently Relevant to Health Maintenance Advance Directives For more information, please contact: [phone] * Full Code (Latest Code Status on File) Date Activated Date Inactivated Comments 08/31/2011 3:42 PM 09/04/2011 8:53 PM * Full Code Date Activated Date Inactivated Comments 08/30/2011 5:46 PM 08/31/2011 3:42 PM * Full Code Date Activated Date Inactivated Comments 09/08/2010 4:07 PM 09/08/2010 8:44 PM * Full Code Date Activated Date Inactivated Comments 09/08/2010 2:41 PM 09/08/2010 4:07 PM Care Teams Galley Hand Relationship Specialty Start Date End Date Annalisa Christopher MD [address] [place] [address] PCP - General 07/07/08
--- OUTSIDE RECORDS SUMMARY | 2024-10-06 18:12 | XMS_ITS | Encounter Summary ---
Author Organization [facility] Address [address] [place] [address] Care Team Providers Care Coil Placer Name Role Phone Annalisa Christopher MD Primary Care Provider [phone] Reason for Visit * Reason Onset Date Comments Medication Refill 05/01/2024 Encounter Details Date Type Department Care Team (Late st Contact Info) Description 05/01/[address] [place] [address] Annalisa Christopher MD [address] [place] [address] [address] [place] [address] Benign essential tremor Social History Tobacco Use Types Packs/Day Years [...] Description 04/25/2025 8:20 AM CDT Office Visit [address] [place] [address] Annalisa Christopher MD [address] [place] [address] [address] [place] [address] documented as of this encounter Visit Diagnoses Diagnosis Benign essential tremor Essential and other specified forms of tremor documented in this encounter Care Teams Coil Placer Relationship Specialty Start Date End Date Annalisa Christopher MD [address] [place] [address] PCP - General 07/07/08 documented as of this encounter
--- OUTSIDE RECORDS SUMMARY | 2024-10-06 18:12 | XMS_ITS | Encounter Summary ---
Author Organization [facility] Address [address] [place] [address] Care Team Providers Care Aerial Photogrammetrist Name Role Phone Leah Santo MD Primary Care Provider Unavaila ble Reason for Visit * Reason Comments PPD Skin Test Placement Encounter Details Date Type Department Care Team (Late st Contact Info) Description 05/23/2017 7:00 PM CDT Office Visit [email or web address] AT [address] [phone] Provider, [facility] PPD screening test (Primary Dx) Social History Tobacco Use Types Packs/Day Years Used Date Smoking Tobacco: Never Assessed Sex and Gender Information Value Date Recorded Sex Assigned at Not on file Gender Identity Not on file Sexual Orientation Not on file documented as of this encounter Patient Instructions * Patient Instructions* Rudi Naik APRN-CNP - 05/23/2017 11:52 AM CDT Return for TB reading after 11:50am on 05/25/17, or before 11:50am on 05/26/17 Failure to return during this time frame will result in having to repeat test. Clinic hours are M-F 9am - 7:30pm, Sat. & Sun. 10am - 4:30pm Lunch between 1-2pm documented in this encounter Progress Notes * Rudi Naik APRN-CNP - 05/23/2017 11:52 AM CDT PPD Placement note Fabiana Holderry, 41 y.o. female is here today for placement of PPD test Reason for PPD test: work Pt taken PPD test before: yes Verified in allergy area and with patient that they are not allergic to the products PPD is made of(Phenol or Tween). Yes Is patient taking any oral or IV steroid medication now or have they taken it in the last month? no Has the patient ever received the BCG vaccine?: no Has the patient been in recent contact with anyone known or suspected of having active TB disease?:no Date of exposure (if applicable): na Name of person they were exposed to (if applicable): na Patient's Country of origin?: [place] O: Alert and oriented in NAD. P: PPD placed on 05/23/2017. Patient advised to return for reading within 48-72 hours. Return for TB reading after 11:50am on 05/25/17, or before 11:50am on 05/26/17 Failure to return during this time frame will result in having to repeat test. Clinic hours are M-F 9am - 7:30pm, Sat. & Sun. 10am - 4:30pm Lunch between 1-2pm Office Visit on 05/23/17 SKIN TEST PPD - POINT OF CARE Result Value Ref Range PPD negative PPD placed 05/23 at 11:50am; read 05/25 at 12:25pm- 0 mm- negative documented in this encounter Plan of Treatment Not on file documented as of this encounter Procedures Procedure Name Priority Date/Time Associated Diagnosis Comments SKIN TEST PPD - POINT OF CARE Routine 05/25/2017 12:24 PM CDT PPD screening test documented in this encounter Results * SKIN TEST PPD - POINT OF CARE (05/25/2017 12:24 PM CDT) PPD negative Comment:PPD placed 05/23 at 1 1:50am; read 05/25 at 12:25pm- 0 mm- negative MISCELLANEOUS SAMPLE S / Unknown 05/25/2017 12:24 PM CDT [facility] - POINT OF CA RE ORDERABLES documented in this encounter Visit Diagnoses Diagnosis PPD screening test- Primary Screening examination for pulmonary tuberculosis documented in this encounter Administered Medications Administered Medications Medication Order MAR Action Action Date Dose Rate Site PPD Intradermal Given 05/23/2017 0.1 mL Left Forearm documented in this encounter Care Teams Aerial Photogrammetrist Relationship Specialty Start Date End Date Leah Santo MD PCP - General Internal Medicine 05/23/17 documented as of this encounter
--- OUTSIDE RECORDS SUMMARY | 2024-10-06 18:12 | XMS_ITS | Encounter Summary ---
Author Organization [facility] Address [address] [place] [address] Care Team Providers Care Policy Manager Name Role Phone Annalisa Christopher MD Primary Care Provider [phone] Encounter Details Date Type Department Care Team (Late st Contact Info) Description 12/29/2023 External Device Data STL ABSTRACTION Provider, Abstract [...] Description 04/25/2025 8:20 AM CDT Office Visit [facility] [address] [place] [address] [place] [address] Annalisa Christopher MD [address] [place] [address] [place] [address] documented as of this encounter Visit Diagnoses Not on filedocumented in this encounter Care Teams Policy Manager Relationship Specialty Start Date End Date Annalisa Christopher MD [address] [place] [address] [address] [place] [address] PCP - General 07/07/08 documented as of this encounter
--- OUTSIDE RECORDS SUMMARY | 2024-10-06 18:12 | XMS_ITS | Encounter Summary ---
Author Organization [facility] Address [address] [place] [address] Care Team Providers Care Marketing Sales Representative Name Role Phone Annalisa Christopher MD Primary Care Provider [phone] Reason for Visit * Reason Comments Med Refill Encounter Details Date Type Department Care Team (Late st Contact Info) Description 06/30/2023 Refill [facility] - [address] [place] [address] Elkin Alvarez MD NO ADDRESS ON FILE Mild intermittent asthma without complication Social History [...] encounter Miscellaneous Notes * Telephone Encounter - Sanjana Tompkins - 06/30/2023 4:09 PM CDT [facility] 04/19/23 No future appointments documented in this encounter Plan of Treatment Upcoming Encounters Date Type Department Care Team (Late st Contact Info) Description 04/25/2025 8:20 AM CDT Office Visit [address] [place] [address] Annalisa Christopher MD [address] [place] [address] Rd [address] [place] [address] documented as of this encounter Visit Diagnoses Diagnosis Mild intermittent asthma without complication Unspecified asthma documented in this encounter Care Teams Marketing Sales Representative Relationship Specialty Start Date End Date Annalisa Christopher MD [address] [place] [address] PCP - General 07/07/08 documented as of this encounter
--- OUTSIDE RECORDS SUMMARY | 2024-10-06 18:12 | XMS_ITS | Encounter Summary ---
Author Organization [facility] Address [address] [place] [address] Care Team Providers Care Surgical Pathologist Name Role Phone Annalisa Christopher MD Primary Care Provider [phone] Encounter Details Date Type Department Care Team (Late st Contact Info) Description 05/14/2024 External Device Data STL ABSTRACTION Provider, Abstract [...] Description 04/25/2025 8:20 AM CDT Office Visit [facility] Primary Care - [facility] [address] [place] [address] [place] [address] Annalisa Christopher MD [address] [place] [address] [place] [address] documented as of this encounter Visit Diagnoses Not on filedocumented in this encounter Care Teams Surgical Pathologist Relationship Specialty Start Date End Date Annalisa Christopher MD [address] [place] [address] [address] [place] [address] PCP - General 07/07/08 documented as of this encounter
--- OUTSIDE RECORDS SUMMARY | 2024-10-06 18:12 | XMS_ITS | Encounter Summary ---
Author Organization [facility] Address [address] [place] [address] Care Team Providers Care Mineral Industry Teacher Name Role Phone Annalisa Christopher MD Primary Care Provider [phone] Reason for Visit * Reason Comments Med Refill Encounter Details Date Type Department Care Team (Late st Contact Info) Description 09/29/2023 Refill [facility] Primary Care - [address] [place] [phone] Annalisa Christopher MD [address] [place] [address] [address] [place] [address] Mild intermittent asthma without complication [...] encounter Miscellaneous Notes * Telephone Encounter - Renuka Lubin RN - 09/29/2023 7:14 AM SOFTWARE DEVELOPMENT TEST ENGINEER Drug alert GRIFFIN: 04/19/2023 WARE DEVELOPMENT TEST ENGINEER documented in this encounter Plan of Treatment Upcoming Encounters Date Type Department Care Team (Late st Contact Info) Description 04/25/2025 8:20 AM CDT Office Visit [facility] Primary Care - [facility] [address] [place] [address] Annalisa Christopher MD [address] [place] [address] documented as of this encounter Visit Diagnoses Diagnosis Mild intermittent asthma without complication Unspecified asthma documented in this encounter Care Teams Mineral Industry Teacher Relationship Specialty Start Date End Date Annalisa Christopher MD [address] [place] [address] PCP - General 07/07/08 documented as of this encounter
--- OUTSIDE RECORDS SUMMARY | 2024-10-06 18:12 | XMS_ITS | Encounter Summary ---
Author Organization [facility] Address [address] [place] [address] Care Team Providers Care Customer Quality Specialist Name Role Phone Annalisa Christopher MD Primary Care Provider [phone] Encounter Details Date Type Department Care Team (Late st Contact Info) Description 05/15/2024 External Device Data STL ABSTRACTION Provider, Abstract [...] Description 04/25/2025 8:20 AM CDT Office Visit [facility] Primary Care - [facility] [address] [place] [address] [place] [phone] Annalisa Christopher MD [address] [place] [address] [address] [place] [address] documented as of this encounter Visit Diagnoses Not on filedocumented in this encounter Care Teams Customer Quality Specialist Relationship Specialty Start Date End Date Annalisa Christopher MD [address] [place] [address] [address] [place] [address] PCP - General 07/07/08 documented as of this encounter
--- OUTSIDE RECORDS SUMMARY | 2024-10-06 18:12 | XMS_ITS | Patient Health Summary ---
Author Organization [facility] Address [address] [facility] [place] [address] Care Team Providers Care Pizza Cook Name Role Phone Leah Santo MD Primary Care Provider aNtaliea [facility] Note from [facility],non-owned Affiliates and Associated Physician Practices is amultiple site organization consisting of ambulatory clinics and hospital sitesin [place], [place], [place] and [place]. This disclosure is being madepursuant to the Care Everywhere program and may not contain all information available regarding this patient. Last updated 18.[facility] Allergies * Sulfa Drugs Social History Tobacco Use Types Packs/Day Years Used Date Smoking Tobacco: Never Assessed Sex and Gender Information Value Date Recorded Sex Assigned at Not on file Gender Identity Not on file Sexual Orientation Not on file Procedures * SKIN TEST PPD - POINT OF CARE(Performed 05/25/2017) Performed for PPD screening test Results * SKIN TEST PPD - POINT OF CARE (05/25/2017 12:24 PM CDT) PPD negative Comment:PPD placed 05/23 at 1 1:50am; read 05/25 at 12:25pm- 0 mm- negative MISCELLANEOUS SAMPLE S / Unknown 05/25/2017 12:24 PM CDT Rudi Naik APRN-STRUCTURAL ANALYST LAB - POINT OF [place] RE ORDERABLES Care Teams Pizza Cook Relationship Specialty Start Date End Date Leah Santo MD PCP - General Internal Medicine 05/23/17
--- OUTSIDE RECORDS SUMMARY | 2024-10-06 18:12 | XMS_ITS | Encounter Summary ---
Author Organization [facility] Address [address] [place] [address] Care Team Providers Care Safety Sitter Name Role Phone Annalisa Christopher MD Primary Care Provider [phone] Reason for Visit * Reason Comments Sinus Problem Sxs started about 8 days agoHeadache/ pressureSore throat Coughing up yellowish mucus. At home COVID test yesterday-negative. OTC zyrtec-d daily, flonase, mucinex Encounter Details Date Type Department Care Team (Late st Contact Info) Description 07/18/2024 9:40 AM CDT Office Visit [facility] Primary Care - [address] [place] [phone] Annalisa Christopher MD [address] [place] [address] [place] [phone] Acute non-recurrent maxillary sinusitis (Primary Dx) Social History Tobacco Use Types [...] 07/18/2024 10:15 AM C DT Respiratory Rate - - Oxygen Saturation 98% 07/18/2024 10:15 AM CDT Inhaled Oxygen Concentration - - Weight 88.5 kg (195 lb 3.2 oz) 07/18/2024 10:15 AM CDT Height 170.2 cm (5' 7 ) 07/18/2024 10:15 AM CDT Body Mass Index 30.57 07/18/2024 10:15 AM CDT documented in this encounter Progress Notes * Annalisa Christopher MD - 07/18/2024 10:27 AM CDT HISTORY OF PRESENT ILLNESS Fabiana Pryor, a 49 y.o. female presents with a Chief Complaint of Sinus Problem (Sxs started about 8 days ago/Headache/ pressure/Sore throat /Coughing up yellowish mucus. /At home COVID test yesterday-negative. /OTC zyrtec-d daily, flonase, mucinex) Subjective Sinus Infection This is a new problem. The current episode started more than 1 week ago. The problem has been gradually worsening. There has been no fever. The pain is moderate. The pain has been Worsening since onset. Associated symptoms include congestion, sinus pressure and sore throat. Pertinent negatives include no chills, no cough and no shortness of breath. REVIEW OF SYSTEMS Review of Systems Constitutional: Positive for fatigue. Negative for chills and fever. HENT: Positive for congestion, postnasal drip, sinus pressure and sore throat. Respiratory: Negative for cough, shortness of breath and wheezing. Cardiovascular: Negative for chest pain, palpitations and leg swelling. Gastrointestinal: Negative for abdominal pain. Objective PHYSICAL EXAM BP 114/86 (BP Location: Right arm, Patient Position (BP): Sitting, BP Cuff Size: Large Adult) Pulse 84 Temp 98.4 ??F (36.9 ??C) (Temporal) Ht 5' 7 (1.702 m) Wt 88.5 kg (195 lb 3.2 oz) GcA791% BMI 30.57 kg/m?? Physical Exam Constitutional: General: She is not in acute distress. Appearance: She is not diaphoretic. HENT: Head: Normocephalic and atraumatic. Right Ear: External ear normal. Left Ear: External ear normal. Nose: Mucosal edema and rhinorrhea present. Right Sinus: Maxillary sinus tenderness present. Left Sinus: Maxillary sinus tenderness present. Mouth/Throat: Pharynx: No oropharyngeal exudate. Eyes: General: No scleral icterus. Pupils: Pupils are equal, round, and reactive to light. Neck: Vascular: No JVD. Pulmonary: Effort: Pulmonary effort is normal. No respiratory distress. Breath sounds: No wheezing or rales. Musculoskeletal: Cervical back: Normal range of motion and neck supple. Lymphadenopathy: Cervical: No cervical adenopathy. Skin: General: Skin is warm and dry. Neurological: Mental Status: She is alert and oriented to person, place, and time. Procedures Assessment ASSESSMENT and PLAN: ICD-10-CM ICD-9-CM 1. Acute non-recurrent maxillary sinusitis J01.00 461.0 amoxicillin-clavulanate (AUGMENTIN) 875-125mg tablet Add mucinex OTC Fabianarajinder Pryor expressed good understanding of the issues discussed and all questions were addressed and fully answered. Fabiana Pryor verbalized understanding of today's discussion, was satisfied with the office visit, and had no further questions. Fabiana Pryor was also advised to call back directly if there are further questions, or if these symptoms fail to improve as anticipated or worsen. This has been fully explained to the patient, who indicates understanding. ET BED OPERATOR documented in this encounter Plan of Treatment Upcoming Encounters Date Type Department Care Team (Late st Contact Info) Description 04/25/2025 8:20 AM CDT Office Visit [facility] Primary Care - [address] [place] [phone] Annalisa Christopher MD [facility] [address] [place] [phone] documented as of this encounter Visit Diagnoses Diagnosis Acute non-recurrent maxillary sinusitis- Primary documented in this encounter Care Teams Safety Sitter Relationship Specialty Start Date End Date Annalisa Christopher MD [address] [place] [address] [place] [phone] PCP - General 07/07/08 documented as of this encounter
--- OUTSIDE RECORDS SUMMARY | 2024-10-06 18:12 | XMS_ITS | Encounter Summary ---
Author Organization [facility] Address [address] [place] [address] Care Team Providers Care Bagel Maker Name Role Phone Annalisa Christopher MD Primary Care Provider [phone] Reason for Visit * Reason Comments Med Refill Encounter Details Date Type Department Care Team (Late st Contact Info) Description 08/02/2024 Refill [facility] Primary Care - [address] [place] [phone] Annalisa Christopher MD [address] [place] [address] [address] [place] [address] Mild intermittent asthma without complication [...] Telephone Encounter - Sofy Murray LPN - 08/02/2024 7:23 AM BUSINESS SERVICES SPECIALIST SALES GRIFFIN: 07/18/2024 FOV: 04/25/2025 NESS SERVICES SPECIALIST SALES documented in this encounter Plan of Treatment Upcoming Encounters Date Type Department Care Team (Late st Contact Info) Description 04/25/2025 8:20 AM CDT Office Visit [facility] Primary Care - [facility] [address] [place] [phone] Annalisa Christopher MD [address] [place] [address] documented as of this encounter Visit Diagnoses Diagnosis Mild intermittent asthma without complication Unspecified asthma documented in this encounter Care Teams Bagel Maker Relationship Specialty Start Date End Date Annalisa Christopher MD [address] [place] [phone] PCP - General 07/07/08 documented as of this encounter
--- OUTSIDE RECORDS SUMMARY | 2024-10-06 18:12 | XMS_ITS | Encounter Summary ---
Author Organization [facility] Address [address] [place] [address] Care Team Providers Care Burial Vault Maker Name Role Phone Annalisa Christopher MD Primary Care Provider [phone] Encounter Details Date Type Department Care Team (Late st Contact Info) Description 10/25/2023 External Device Data STL ABSTRACTION Provider, Abstract [...] [facility] Primary Care - [facility] [address] [place] [address] [place] [phone] Annalisa Christopher MD [address] [place] [address] [place] [phone] documented as of this encounter Visit Diagnoses Not on filedocumented in this encounter Care Teams Burial Vault Maker Relationship Specialty Start Date End Date Annalisa Christopher MD [address] [place] [address] [address] [place] [address] PCP - General 07/07/08 documented as of this encounter
--- OUTSIDE RECORDS SUMMARY | 2024-10-06 18:12 | XMS_ITS | Encounter Summary ---
Author Organization [facility] Address [address] [place] [address] Care Team Providers Care Human Capital Manager Name Role Phone Annalisa Christopher MD Primary Care Provider [phone] Encounter Details Date Type Department Care Team (Late st Contact Info) Description 03/05/2024 External Device Data STL ABSTRACTION Provider, Abstract [...] Description 04/25/2025 8:20 AM CDT Office Visit [facility] Primary Care - [facility] [address] [place] [address] [place] [phone] Annalisa Christopher MD [address] [place] [address] [place] [phone] documented as of this encounter Visit Diagnoses Not on filedocumented in this encounter Care Teams Human Capital Manager Relationship Specialty Start Date End Date Annalisa Christopher MD [address] [place] [address] [address] [place] [address] PCP - General 07/07/08 documented as of this encounter
--- OUTSIDE RECORDS SUMMARY | 2024-10-06 18:12 | XMS_ITS | Encounter Summary ---
Author Organization [facility] Address [address] [place] [address] Care Team Providers Care Wirer Maintenance Name Role Phone Annalisa Christopher MD Primary Care Provider [phone] Encounter Details Date Type Department Care Team (Late st Contact Info) Description 01/09/2024 External Device Data STL ABSTRACTION Provider, Abstract [...] Description 04/25/2025 8:20 AM CDT Office Visit [facility] Primary Care - [facility] [address] [place] [address] [place] [phone] Annalisa Christopher MD [address] [place] [address] [place] [phone] documented as of this encounter Visit Diagnoses Not on filedocumented in this encounter Care Teams Wirer Maintenance Relationship Specialty Start Date End Date Annalisa Christopher MD [address] [place] [address] [address] [place] [address] PCP - General 07/07/08 documented as of this encounter
--- OUTSIDE RECORDS SUMMARY | 2024-10-06 18:12 | XMS_ITS | Encounter Summary ---
Author Organization [facility] Address [address] [place] [address] Care Team Providers Care Dye Weigher Helper Name Role Phone Annalisa Christopher MD Primary Care Provider [phone] Reason for Visit * Reason Comments Med Change Request Encounter Details Date Type Department Care Team (Late st Contact Info) Description 07/17/[address] [place] [phone] Annalisa Christopher MD [address] [place] [address] [address] [place] [address] PTSD (post-traumatic stress disorder) Social [...] Description 04/25/2025 8:20 AM CDT Office Visit [address] [place] [address] Annalisa Christopher MD [address] [place] [address] [place] [phone] documented as of this encounter Visit Diagnoses Diagnosis PTSD (post-traumatic stress disorder) Posttraumatic stress disorder documented in this encounter Care Teams Dye Weigher Helper Relationship Specialty Start Date End Date Annalisa Christopher MD [address] [place] [phone] PCP - General 07/07/08 documented as of this encounter
--- OUTSIDE RECORDS SUMMARY | 2024-10-06 18:12 | XMS_ITS | Encounter Summary ---
Author Organization [facility] Address [address] [place] [address] Care Team Providers Care Flat Finisher Name Role Phone Annalisa Christopher MD Primary Care Provider [phone] Encounter Details Date Type Department Care Team (Late st Contact Info) Description 11/28/2023 External Device Data STL ABSTRACTION Provider, Abstract [...] Description 04/25/2025 8:20 AM CDT Office Visit [facility] Primary Care - [facility] [address] [place] [address] [place] [phone] Annalisa Christopher MD [address] [place] [address] [place] [phone] documented as of this encounter Visit Diagnoses Not on filedocumented in this encounter Care Teams Flat Finisher Relationship Specialty Start Date End Date Annalisa Christopher MD [address] [place] [address] [address] [place] [address] PCP - General 07/07/08 documented as of this encounter
--- OUTSIDE RECORDS SUMMARY | 2024-10-06 18:12 | XMS_ITS | Referral Summary ---
Author Organization [facility] Address [address] [facility] [place] [address] Care Team Providers Care Urologist Md Name Role Phone Leah Santo MD Primary Care Provider Unavaila ble Source Comments [facility],non-owned Affiliates and Associated Physician Practices is amultiple site organization consisting of ambulatory clinics and hospital sitesin [place], [place], [place] and [place]. This disclosure is being madepursuant to the Care Everywhere program and may not contain all information available regarding this patient. Last updated 18.[facility] Advantage Allergies Active Allergy Reactions Criticality Noted Date Comments Sulfa Drugs 05/23/2017 Social History Tobacco Use Types Packs/Day Years Used Date Smoking Tobacco: Never Assessed Sex and Gender Information Value Date Recorded Sex Assigned at Not on file Gender Identity Not on file Sexual Orientation Not on file Plan of Treatment Not on file Administered Medications Care Teams Urologist Md Relationship Specialty Start Date End Date Leah Santo MD PCP - General Internal Medicine 05/23/17
--- OUTSIDE RECORDS SUMMARY | 2024-10-06 18:12 | XMS_ITS | Encounter Summary ---
Author Organization [facility] Address [address] [place] [address] Care Team Providers Care Texture Artist Name Role Phone Annalisa Christopher MD Primary Care Provider [phone] Reason for Visit * Reason Onset Date Comments Upper Respiratory Symptoms 07/25/2023 Encounter Details Date Type Department Care Team (Late st Contact Info) Description 07/25/2023 Telephone [facility] Primary Care - [address] [place] [phone] Annalisa Christopher MD [address] [place] [address] [place] [phone] Upper Respiratory Symptoms Social History Tobacco Use Types Packs/Day Years [...] encounter Miscellaneous Notes * Telephone Encounter - Kalpana Welch LPN - 07/26/2023 9:16 AM CDT Pt notified. * Telephone Encounter - Kalpana Welch LPN - 07/26/2023 9:11 AM CDT Will you send pt an rx to treat sinus infection? * Telephone Encounter - Yaritza Colby - 07/26/2023 8:34 AM CDT Pt calling back to see if any medication was sent to the pharmacy for sinus infection Per pt is getting worse by the moment Please advise * Telephone Encounter - Emely Cuadra - 07/25/2023 9:24 AM CDT Pt went to [facility] in [place] yest and was told has sinus infection. Was not given any med except Tessalon for cough. Neg for covid, strep and flu. Pt has symptoms x 8 day Nasal roseline is green/yellow, cough from drainage. Moura, drainage, No fever, very s/t, pressure around eyes, No wheeze or sob. No aches or chills Taking zyrtec, flonase, theraflu, Robitussin Dm Asking for rx? documented in this encounter Plan of Treatment Upcoming Encounters Date Type Department Care Team (Late st Contact Info) Description 04/25/2025 8:20 AM CDT Office Visit [facility] Primary Care - [address] [place] [phone] Annalisa Christopher MD [address] [place] [address] [place] [phone] documented as of this encounter Visit Diagnoses Not on filedocumented in this encounter Care Teams Texture Artist Relationship Specialty Start Date End Date Annalisa Christopher MD [address] [place] [address] [place] [phone] PCP - General 07/07/08 documented as of this encounter
--- OUTSIDE RECORDS SUMMARY | 2024-10-06 18:12 | XMS_ITS | Encounter Summary ---
Author Organization [facility] Address [address] [place] [address] Care Team Providers Care Fiscal Technician Name Role Phone Annalisa Christopher MD Primary Care Provider [phone] Encounter Details Date Type Department Care Team (Late st Contact Info) Description 06/25/2024 External Device Data STL ABSTRACTION Provider, Abstract [...] Description 04/25/2025 8:20 AM CDT Office Visit [facility] Primary Care - [facility] [address] [place] [address] [place] [phone] Annalisa Christopher MD [address] [place] [address] [address] [place] [address] documented as of this encounter Visit Diagnoses Not on filedocumented in this encounter Care Teams Fiscal Technician Relationship Specialty Start Date End Date Annalisa Christopher MD [address] [place] [address] [address] [place] [address] PCP - General 07/07/08 documented as of this encounter
--- OUTSIDE RECORDS SUMMARY | 2024-10-06 18:12 | XMS_ITS | Encounter Summary ---
Author Organization [facility] Address [address] [place] [address] Care Team Providers Care Cleaner Carpet And Upholstery Name Role Phone Annalisa Christopher MD Primary Care Provider [phone] Encounter Details Date Type Department Care Team (Late st Contact Info) Description 07/29/2024 External Device Data STL ABSTRACTION Provider, [...] Description 04/25/2025 8:20 AM CDT Office Visit [facility] Primary Care - [facility] [address] [place] [address] [place] [phone] Annalisa Christopher MD [address] [place] [address] [address] [place] [address] documented as of this encounter Visit Diagnoses Not on filedocumented in this encounter Care Teams Cleaner Carpet And Upholstery Relationship Specialty Start Date End Date Annalisa Christopher MD [address] [place] [address] [address] [place] [address] PCP - General 07/07/08 documented as of this encounter
--- OUTSIDE RECORDS SUMMARY | 2024-10-06 18:12 | XMS_ITS | Encounter Summary ---
Author Organization [facility] Address [address] [place] [address] Care Team Providers Care Insulation Batting Machine Operator Name Role Phone Annalisa Christopher MD Primary Care Provider [phone] Encounter Details Date Type Department Care Team (Late st Contact Info) Description 04/09/2024 External Device Data STL ABSTRACTION Provider, Abstract [...] Description 04/25/2025 8:20 AM CDT Office Visit [facility] Primary Care - [facility] [address] [place] [address] [place] [phone] Ananlisa Christopher MD [address] [place] [address] [place] [phone] documented as of this encounter Visit Diagnoses Not on filedocumented in this encounter Care Teams Insulation Batting Machine Operator Relationship Specialty Start Date End Date Annalisa Christopher MD [address] [place] [address] [address] [place] [address] PCP - General 07/07/08 documented as of this encounter
--- OUTSIDE RECORDS SUMMARY | 2024-10-06 18:12 | XMS_ITS | Encounter Summary ---
Author Organization [facility] Address [address] [place] [address] Care Team Providers Care Hide Curer Name Role Phone Annalisa Christopher MD Primary Care Provider [phone] Encounter Details Date Type Department Care Team [...] 04/25/2025 8:20 AM CDT Office Visit [facility] - [facility] [address] [place] [address] [place] [address] Annalisa Chrisotpher MD [address] [place] [address] [address] [place] [address] documented as of this encounter Visit Diagnoses Not on filedocumented in this encounter Care Teams Hide Curer Relationship Specialty Start Date End Date Annalisa Christopher MD [address] [place] [address] [address] [place] [address] PCP - General 07/07/08 documented as of this encounter
--- OUTSIDE RECORDS SUMMARY | 2024-10-06 18:13 | XMS_ITS | Encounter Summary ---
Author Organization [facility] Address [address] [place] [address] Care Team Providers Care Moisture Meter Reader Name Role Phone Annalisa Christopher MD Primary Care Provider [phone] Reason for Visit * Reason Onset Date Comments Wants Appointment 08/24/2018 Encounter Details Date Type Department Care Team (Late st Contact Info) Description 08/24/2018 Telephone [facility] Primary Care - [address] [place] [address] Annalisa Christopher MD [address] [place] [address] [address] [place] [address] Wants Appointment Social History Tobacco Use Types Packs/Day Years [...] * Telephone Encounter - Sanjana Tompkins - 08/24/2018 5:17 PM CST Spoke to pt and schedule appointment with MK per DEMETRI. NESS SPECIALIST * Telephone Encounter - Annalisa Christopher MD - 08/24/2018 4:48 PM CST Yes - I can see her ever sooner if needed NESS SPECIALIST * Telephone Encounter - Emely Cuadra - 08/24/2018 4:16 PM CST Pt was seen 08/06 for sick visit and didn't get to be seen for pe Asking if can be seen 10/12 or 10/18 for her pe? NESS SPECIALIST documented in this encounter Plan of Treatment Upcoming Encounters Date Type Department Care Team (Late st Contact Info) Description 04/25/2025 8:20 AM CDT Office Visit [facility] Primary Care - [facility] [address] [facility] [address] [place] [address] Annalisa Christopher MD [address] [facility] [address] [place] [address] documented as of this encounter Visit Diagnoses Not on filedocumented in this encounter Additional Health Concerns Assessment Noted Time PHQ-9 Depression Total Score: 1 06/06/20 16 9:00 AM CDT documented as of this encounter Care Teams Moisture Meter Reader Relationship Specialty Start Date End Date Annalisa Christopher MD [address] [facility] [address] [place] [address] PCP - General 07/07/08 documented as of this encounter
--- OUTSIDE RECORDS SUMMARY | 2024-10-06 18:13 | XMS_ITS | Encounter Summary ---
Author Organization [facility] Address [address] [place] [address] Care Team Providers Care Drill Operator Automatic Name Role Phone Annalisa Christopher MD Primary Care Provider [phone] Reason for Visit * Reason Onset Date Comments Sinus Infection 12/07/2020 Encounter Details Date Type Department Care Team (Late st Contact Info) Description 12/07/2020 Telephone [facility] - [address] [place] [address] Annalisa Christopher MD [address] [place] [address] [place] [phone] Sinus Infection Social History Tobacco Use Types Packs/Day Years [...] encounter Miscellaneous Notes * Telephone Encounter - Shelly Vidal - 12/07/2020 5:10 PM CDT LMOR for pt * Telephone Encounter - Annalisa Christopher MD - 12/07/2020 4:20 PM CDT [facility] sent Call back if no better * Telephone Encounter - Shelly Vidal - 12/07/2020 9:23 AM CDT Pt had 2nd dose of vaccine on She has sinus infection x after vaccine Low grade fever, ji, runny nose, Cough up dark green mucus, sore throat OTC zyrtec D, ibuprofen, nasal rinse, flonase Pt req rx? documented in this encounter Plan of Treatment Upcoming Encounters Date Type Department Care Team (Late st Contact Info) Description 04/25/2025 8:20 AM CDT Office Visit [facility] - [facility] [address] [facility] [address] [place] [address] Annalisa Christopher MD [address] [facility] [address] [place] [address] documented as of this encounter Visit Diagnoses Not on filedocumented in this encounter Care Teams Drill Operator Automatic Relationship Specialty Start Date End Date Annalisa Christopher MD [address] [facility] [address] [place] [address] PCP - General 07/07/08 documented as of this encounter
--- OUTSIDE RECORDS SUMMARY | 2024-10-06 18:13 | XMS_ITS | Encounter Summary ---
Author Organization [facility] Address [address] [place] [address] Care Team Providers Care Pipe Connector Name Role Phone Annalisa Christopher MD Primary Care Provider [phone] Reason for Visit * Reason Comments Medication Refill Encounter Details Date Type Department Care Team (Late Contact Info) Description 07/24/2021 Refill [facility] [address] [place] [address] [place] [phone] Elkin Alvarez MD NO ADDRESS ON [...] on file Sexual Orientation Not on file COVID-19 Exposure Response Date Recorded In the last month, have you been in contact with someone who was confirmed or suspected to have Coronavirus / COVID-19? No / Unsure 07/23/2021 1:07 PM CDT documented as of this encounter Plan of Treatment Upcoming Encounters Date Type Department Care Team (Late Contact Info) Description 04/25/2025 8:20 AM CDT Office Visit [facility] [address] [place] [address] [address] [place] [address] Annalisa Christopher MD [address] [place] [address] [address] [place] [address] documented as of this encounter Visit Diagnoses Diagnosis Mild intermittent asthma without complication Unspecified asthma documented in this encounter Care Teams Pipe Connector Relationship Specialty Start Date End Date Annalisa Christopher MD [address] [facility] [address] [place] [address] PCP - General 07/07/08 documented as of this encounter
--- OUTSIDE RECORDS SUMMARY | 2024-10-06 18:13 | XMS_ITS | Encounter Summary ---
Author Organization [facility] Address [address] [place] [address] Care Team Providers Care Wildlife Forensic Geneticist Name Role Phone Annalisa Christopher MD Primary Care Provider [phone] Reason for Visit * Reason Onset Date Comments Sinus Infection 04/18/2019 Encounter Details Date Type Department Care Team (Late st Contact Info) Description 04/18/2019 Telephone [facility] - [address] [place] [phone] nAnalisa Christopher MD [address] [place] [address] [address] [place] [address] Sinus Infection Social History Tobacco Use [...] encounter Miscellaneous Notes * Telephone Encounter - Rita Maier - 04/18/2019 4:29 PM CDT lmor for pt * Telephone Encounter - Annalisa Christopher MD - 04/18/2019 4:27 PM CDT Rx sent Please inform patient * Telephone Encounter - Sanjana Tompkins - 04/18/2019 9:10 AM CDT Sinus pressure Sinus pain Drainage Ear pressure Yellow mucous No fever Sore throat from drainage Sx X 7 days OTC zurtic d and nedipot and robitussin for cough. Asking for antibiotic if possible. documented in this encounter Plan of Treatment Upcoming Encounters Date Type Department Care Team (Late st Contact Info) Description 04/25/2025 8:20 AM CDT Office Visit [facility] - [facility] [address] [facility] [address] [place] [phone] Annalisa Christopher MD [address] [facility] [address] [place] [phone] documented as of this encounter Visit Diagnoses Not on filedocumented in this encounter Additional Health Concerns Assessment Noted Time PHQ-9 Depression Total Score: 1 06/06/20 16 9:00 AM CDT documented as of this encounter Care Teams Wildlife Forensic Geneticist Relationship Specialty Start Date End Date Annalisa Christopher MD [address] [facility] [address] [place] [address] PCP - General 07/07/08 documented as of this encounter
--- OUTSIDE RECORDS SUMMARY | 2024-10-06 18:13 | XMS_ITS | Encounter Summary ---
Author Organization [facility] Address [address] [place] [address] Care Team Providers Care Child Life Therapist Name Role Phone Annalisa Christopher MD Primary Care Provider [phone] Reason for Referral * CT Scan (Routine) - Closed Specialty Diagnoses / Procedures Referred By Contac t Referred To Contact Radiology Diagnoses Flank pain Procedures CT ABDOMEN PELVIS WO CONTRAST Chloe Hollingsworth NP [address] [facility] [address] [place] [address] [place] [phone] Referral ID Status Reason Start Date Expiration Date V isits Requested Visits Authorized [id number] Closed [facility] CTS 07/23/2021 08/23/2022 1 1 Reason for Visit * CT Scan (Routine) - Closed Specialty Diagnoses / Procedures Referred By Contac t Referred To Contact Radiology Diagnoses Flank pain Procedures CT ABDOMEN PELVIS WO CONTRAST Chloe Hollingsworth NP [address] [facility] [address] [place] [address] Scan [place] [address] [facility] [address] [place] [address] Referral ID Status Reason Start Date Expiration Date V isits Requested Visits Authorized [id number] Closed [facility] CTS 07/23/2021 08/23/2022 1 1 Encounter Details Date Type Department Care Team (Latest Contact Info) Description 07/23/2021 2:11 PM CDT - 07/23/2021 11:59 PM CDT Hospital Encounter [facility] CT Scan [facility] [address] [place] [address] Chloe Hollingsworth, SAI [address] [facility] [address] [place] [address] Discharge Disposition: Home or Self Care Social History Tobacco Use Types Packs/Day Years [...] PM CDT documented as of this encounter Medications at Time of Discharge Medication Sig Dispensed Refills Start Date End Date Peak Flow Meter DeviceIndications:Mil d intermittent asthma without complication Dx asthma. 1 Device 03/29/2019 fluticasone (FLONASE) 50 mcg/spray [place], Suspension Administer 2 Sprays in each nostril daily. cetirizine-pseudoephe drine sr 12 hour (ZyrTEC-D) 5-120 mg tabletIndications:All ergic rhinitis due to pollen, unspecified rhinitis seasonality Take 1 Tablet by mouth 2 times daily. 60 Tablet 3 05/31/2017 diazePAM (VALIUM) 5 mg tabletIndications:PTS D (post-traumatic stress disorder) Take 1 Tablet (5 mg) by mouth 1 time daily as needed for Anxiety. 20 Tablet 0 06/06/2016 levonorgestreL (MIRENA) 20 mcg/24 hours (7 yrs) 52 mg IUD by Intrauterine route. tamsulosin (FLOMAX) 0.4 mg capsuleIndications:Ne phrolithiasis Take 1 Capsule (0.4 mg) by mouth daily. 30 Capsule 07/23/2021 08/16/2021 escitalopram oxalate (LEXAPRO) 10 mg tabletIndications:PTS D (post-traumatic stress disorder) TAKE 1 TABLET BY MOUTH EVERY DAY 30 Tablet 4 05/07/2021 10/06/2021 Breo Ellipta 100-25 mcg/dose Disk with DeviceIndications:Mil d intermittent asthma without complication INHALE 1 PUFF BY MOUTH EVERY DAY 60 Each 3 03/23/2021 07/26/2021 promethazine (PHENERGAN) 25 mg tabletIndications:Toni sin without status migrainosus, not intractable, unspecified migraine type Take 1 Tablet (25 mg) by mouth every 6 hours as needed for Nausea/Emesis. 30 Tablet 10/22/2020 04/08/2022 albuterol HFA 90 mcg inhalerIndications:Mi ld intermittent asthma without complication TAKE 2 PUFFS EVERY 6 HOURS NEEDED FOR SHORTNESS OF BREATH.. 8.5 Gram 11 03/29/2019 05/09/2022 documented as of this encounter Plan of Treatment Upcoming Encounters Date Type Department Care Team (Late st Contact Info) Description 04/25/2025 8:20 AM CDT Office Visit [facility] Primary Care - [address] [place] [phone] Annalisa Christopher MD [address] [place] [address] [place] [phone] documented as of this encounter Procedures Procedure Name Priority Date/Time Associated Diagnosis Comments CT ABDOMEN PELVIS WO CONTRAST Routine 07/23/2021 2:27 PM CDT Flank pain documented in this encounter Results * CT ABDOMEN PELVIS WO CONTRAST (07/23/2021 2:27 PM CDT) Anatomical Region Laterality Modality Abdomen Computed Tomogra phy 07/23/2021 2:48 PM CDT Impressions 07/23/2021 2:52 PM CDT IMPRESSION: ?? 1. Nonobstructive left renal calculus. 2. Scattered low-density lesions in the liver which are too small to characterize but are statistically cysts or hemangiomas. 3. Small sliding hiatal hernia. Nonspecific scattered fluid within the small bowel loops and in the right colon without mesenteric inflammatory process. DICTATION LOCATION: Location [address] 07/23/2021 2:[address] ABDOMEN AND PELVIS WITHOUT CONTRAST AND WITH RECONSTRUCTIONS DATE: 07/23/2021 2:27 PM. CLINICAL INFORMATION: Left flank pain. COMPARISON: Ultrasound abdomen 10/05/2013. TECHNIQUE: Contiguous unenhanced axial sections of the abdomen and pelvis are obtained, and are reformatted in the coronal and sagittal planes. The examination was performed with the adjustment of mA according to the patient size and/or the use of Iterative Reconstruction Technique. ?? FINDINGS: LOWER CHEST: Partially visualized bilateral breast implants. Clear lung bases. LIVER: Reduced assessment of the solid organs due to the lack of IV contrast. Stable scattered hypodense lesions in the liver which cannot be completely characterized on this noncontrast examination, the largest present within hepatic segment 2 measuring 1.3 x 1.1 cm. BILE DUCTS: Normal caliber. GALLBLADDER: No calcified gallstones. Normal caliber wall. PANCREAS: Within normal limits. SPLEEN: Within normal limits. ADRENALS: Within normal limits. KIDNEYS/URETERS: No hydronephrosis or ureteral calculus. There is an intrarenal calculus within the inferior left kidney measuring 6 x 3 mm. VESSELS: No abdominal aortic aneurysm. BOWEL: Small sliding hiatal hernia. No bowel obstruction. Nonspecific fluid-filled loops of small bowel and colon, with fluid in the right colon from the cecum to the mid ascending colon. No surrounding fluid which changes. The appendix is questionably visualized and appears within normal limits. PERITONEUM/RETROPERITONEUM: No free air, fluid collection, or lymphadenopathy. REPRODUCTIVE ORGANS: Intrauterine device in the uterine canal. Follicular changes suspected in the ovaries. BLADDER: Mild extrinsic pressure on the bladder by the adjacent proximal pelvic portion of the cecum. ABDOMINAL WALL: Tiny fat-containing umbilical hernia. BONES: Within normal limits. ?? Procedure Note Deepak Winkler DO - 07/23/2021 CT ABDOMEN AND PELVIS WITHOUT CONTRAST AND WITH RECONSTRUCTIONS DATE: 07/23/2021 2:27 PM. CLINICAL INFORMATION: Left flank pain. COMPARISON: Ultrasound abdomen 10/05/2013. TECHNIQUE: Contiguous unenhanced axial sections of the abdomen and pelvis are obtained, and are reformatted in the coronal and sagittal planes. The examination was performed with the adjustment of mA according to the patient size and/or the use of Iterative Reconstruction Technique. FINDINGS: LOWER CHEST: Partially visualized bilateral breast implants. Clear lung bases. LIVER: Reduced assessment of the solid organs due to the lack of IV contrast. Stable scattered hypodense lesions in the liver which cannot be completely characterized on this noncontrast examination, the largest present within hepatic segment 2 measuring 1.3 x 1.1 cm. BILE DUCTS: Normal caliber. GALLBLADDER: No calcified gallstones. Normal caliber wall. PANCREAS: Within normal limits. SPLEEN: Within normal limits. ADRENALS: Within normal limits. KIDNEYS/URETERS: No hydronephrosis or ureteral calculus. There is an intrarenal calculus within the inferior left kidney measuring 6 x 3 mm. VESSELS: No abdominal aortic aneurysm. BOWEL: Small sliding hiatal hernia. No bowel obstruction. Nonspecific fluid-filled loops of small bowel and colon, with fluid in the right colon from the cecum to the mid ascending colon. No surrounding fluid which changes. The appendix is questionably visualized and appears within normal limits. PERITONEUM/RETROPERITONEUM: No free air, fluid collection, or lymphadenopathy. REPRODUCTIVE ORGANS: Intrauterine device in the uterine canal. Follicular changes suspected in the ovaries. BLADDER: Mild extrinsic pressure on the bladder by the adjacent proximal pelvic portion of the cecum. ABDOMINAL WALL: Tiny fat-containing umbilical hernia. BONES: Within normal limits. IMPRESSION: 1. Nonobstructive left renal calculus. 2. Scattered low-density lesions in the liver which are too small to characterize but are statistically cysts or hemangiomas. 3. Small sliding hiatal hernia. Nonspecific scattered fluid within the small bowel loops and in the right colon without mesenteric inflammatory process. DICTATION LOCATION: [address] Chloe Hollingsworth NP CT ORDERABLES documented in this encounter Visit Diagnoses Diagnosis Flank pain Abdominal pain, unspecified site documented in this encounter Care Teams Child Life Therapist Relationship Specialty Start Date End Date Annalisa Christopher MD [address] [place] [address] PCP - General 07/07/08 documented as of this encounter
--- OUTSIDE RECORDS SUMMARY | 2024-10-06 18:13 | XMS_ITS | Encounter Summary ---
Author Organization [facility] Address [address] [place] [address] Care Team Providers Care Title Manager Name Role Phone Annalisa Christopher MD Primary Care Provider [phone] Reason for Referral * Eval and Treat (Routine) - Closed Specialty Diagnoses / Procedures Referred By Contac t Referred To Contact Diagnoses Screening for colorectal cancer Procedures RI OFFICE/OUTPATIENT ESTABLISHED MOD MDM 30-39 MIN RI OFFICE/OUTPATIENT NEW MODERATE MDM 45-59 MINUTES COLON Annalisa Christopher MD [address] [facility] [address] [place] [address] [facility] [address] [place] [address] Referral ID Status Reason Start Date Expiration Date Visits Requested Visits Authorized [id number] Closed Performing Department to Schedule 04/19/2023 04/18/2024 1 1 Reason for Visit * Reason Comments Physical Encounter Details Date Type Department Care Team (Late st Contact Info) Description 04/19/2023 11:00 AM CDT Office Visit [facility] Primary [facility] - [facility] [address] [facility] [address] [place] [address] Annalisa Christopher MD [address] [place] [address] [address] [place] [address] Physical (Primary Dx); Screening for colorectal cancer; Need for Tdap vaccination; Colon cancer screening; Mixed hyperlipidemia; Mild intermittent asthma without complication; Obesity (BMI 30.0-34.9) Social History Tobacco Use Types Packs/Day Years [...] Sign Reading Time Taken Comments Blood Pressure 119/80 04/19/2023 11:03 AM CDT Pulse 72 04/19/2023 11:03 AM CDT Temperature - - Respiratory Rate - - Oxygen Saturation - - Inhaled Oxygen Concentration - - Weight 93 kg (205 lb) 04/19/2023 11:03 AM CDT Height 170.2 cm (5' 7 ) 04/19/2023 11:03 AM CDT Body Mass Index 32.11 04/19/2023 11:03 AM CDT documented in this encounter Progress Notes * Annalisa Christopher MD - 04/19/2023 11:15 AM CDT HISTORY OF PRESENT ILLNESS Fabiana Pryor, a 47 y.o. female presents with a Chief Complaint of Physical Subjective HPI Patient is presenting for her physical also for follow-up on her chronic medical conditions Patient Active Problem List Diagnosis Date Noted Obesity (BMI 30.0-34.9) 04/22/2023 Benign essential tremor 04/29/2022 Asthma Mixed hyperlipidemia 10/12/2018 Allergic rhinitis 08/05/2013 Migraine 10/07/2010 Current Outpatient Medications Medication Sig Dispense Refill Breo Ellipta 100-25 mcg/dose Disk with Device INHALE 1 PUFF BY MOUTH EVERY DAY 60 Each 3 escitalopram oxalate (LEXAPRO) 10 mg tablet TAKE 1 TABLET BY MOUTH EVERY DAY 30 Tablet 10 promethazine (PHENERGAN) 25 mg tablet TAKE 1 TABLET BY MOUTH EVERY 6 HOURS NEEDED FOR NAUSEA/EMESIS. 30 Tablet 0 albuterol sulfate 90 mcg/Actuation inhaler TAKE 2 PUFFS EVERY 6 HOURS NEEDED FOR SHORTNESS OF BREATH. 8.5 Gram 11 propranoloL (INDERAL) 20 mg tablet Take 1 Tablet (20 mg) by mouth 3 times daily. 90 Tablet 11 tamsulosin (FLOMAX) 0.4 mg capsule TAKE 1 CAPSULE BY MOUTH EVERY DAY 30 Capsule 0 Peak Flow Meter Device Dx asthma. 1 Device 0 fluticasone (FLONASE) 50 mcg/spray [place], Suspension Administer 2 Sprays in each nostril daily. cetirizine-pseudoephedrine sr 12 hour (ZyrTEC-D) 5-120 mg tablet Take 1 Tablet by mouth 2 times daily. 60 Tablet 3 diazePAM (VALIUM) 5 mg tablet Take 1 Tablet (5 mg) by mouth 1 time daily as needed for Anxiety. 20 Tablet 0 levonorgestreL (MIRENA) 20 mcg/24 hours (7 yrs) 52 mg IUD by Intrauterine route. No current facility-administered medications for this visit. Social History Tobacco Use Smoking Status Former Types: Cigarettes Quit date: 07/09/2010 Years since quittin.7 Smokeless Tobacco Never Fall Risk She has had no falls in the past year. Tobacco Intervention She is not a tobacco/nicotine user. TOBACCO COUNSELING She is not a tobacco/nicotine user. Depression Screen Depression Screen Positive: PHQ-2 score >= 3 or PHQ-9 score >= 9 PHQ-2 Total: 0 (04/19/2023 11:06 AM) PHQ-9 Total: 4 (04/29/2022 9:00 AM) DEPRESSION PLAN OF CARE Her depression screen was negative. Blood Pressure BP Readings from Last 3 Encounters: 04/19/23 119/80 04/29/22 124/76 07/23/21 120/82 Normal BMI Range: 18 & older: > or = 18.5 and < 25 Body mass index is 32.11 kg/m??. Abnormal high BMI: Patient counseled on lifestyle modifications including weight loss and daily exercise. On the day of the visit, I spent 40 minutes providing care to this patient including Preparing to see the patient, Obtaining and/or reviewing separately obtained history, Performing a medically appropriate examination and/or evaluation, Counseling and educating the patient/family/caregiver, Ordering medications, tests or procedures, and Documenting clinical information in the medical record. Wt Readings from Last 3 Encounters: 04/19/23 93 kg (205 lb) 04/29/22 89.9 kg (198 lb 3.2 oz) 07/23/21 88.6 kg (195 lb 4 oz) REVIEW OF SYSTEMS Review of Systems Constitutional: Negative. Negative for chills and fatigue. HENT: Negative. Negative for congestion and sinus pressure. Eyes: Negative. Negative for redness and visual disturbance. Respiratory: Negative. Negative for cough, shortness of breath and wheezing. Cardiovascular: Negative for chest pain, palpitations and leg swelling. Gastrointestinal: Negative. Negative for abdominal pain, constipation, nausea and vomiting. Endocrine: Negative. Negative for polydipsia and polyphagia. Genitourinary: Negative. Negative for dysuria and urgency. Musculoskeletal: Negative. Negative for arthralgias and joint swelling. Neurological: Negative. Negative for dizziness and numbness. Psychiatric/Behavioral: Negative. Negative for behavioral problems. Objective PHYSICAL EXAM BP 119/80 Pulse 72 Ht 5' 7 (1.702 m) Wt 93 kg (205 lb) BMI 32.11 kg/m?? Physical Exam Constitutional: General: She is not in acute distress. Appearance: She is not diaphoretic. HENT: Head: Normocephalic and atraumatic. Right Ear: External ear normal. Left Ear: External ear normal. Mouth/Throat: Pharynx: No oropharyngeal exudate. Eyes: Conjunctiva/sclera: Conjunctivae normal. Pupils: Pupils are equal, round, and reactive to light. Neck: Thyroid: No thyromegaly. Cardiovascular: Rate and Rhythm: Normal rate and regular rhythm. Heart sounds: Normal heart sounds. Comments: No carotid bruit Pulmonary: Effort: Pulmonary effort is normal. Breath sounds: Normal breath sounds. No wheezing or rales. Abdominal: General: Bowel sounds are normal. Palpations: Abdomen is soft. Tenderness: There is no abdominal tenderness. There is no guarding. Musculoskeletal: Cervical back: Normal range of motion and neck supple. Lymphadenopathy: Cervical: No cervical adenopathy. Skin: General: Skin is warm and dry. Neurological: Mental Status: She is alert and oriented to person, place, and time. Psychiatric: Behavior: Behavior normal. Procedures Assessment ASSESSMENT and PLAN: ICD-10-CM ICD-9-CM 1. Physical Z00.00 V70.0 COMPREHENSIVE METABOLIC PANEL LIPID PANEL HEMOGLOBIN A1C URINALYSIS WITH REFLEX MICROSCOPIC TSH REFLEXIVE CBC WITH DIFFERENTIAL CBC WITH DIFFERENTIAL LIPID PANEL COMPREHENSIVE METABOLIC PANEL HEMOGLOBIN A1C TSH REFLEXIVE 2. Screening for colorectal cancer Z12.11 V76.51 AMB REFERRAL TO GASTROENTEROLOGY Z12.12 V76.41 3. Need for Tdap vaccination Z23 V06.1 TDAP VACCINE >7 YO IM 4. Colon cancer screening Z12.11 V76.51 ENDOSCOPY, COLON, SCREENING 5. Mixed hyperlipidemia E78.2 272.2 6. Mild intermittent asthma without complication J45.20 493.90 7. Obesity (BMI 30.0-34.9) E66.9 278.00 Patient was recommended to follow low-fat low-cholesterol diet Asthma: The patient's baseline dyspnea and night time symptoms appear stable at this time. The patient's albuterol usage is reviewed. The patient is trying to avoid cigarette smoke. Tolerating inhalers with no side effects noted. No recent respiratory infections are reported. I had lengthy discussion with patient regarding lifestyle changes, including regular exercise, at least 30-45 min aerobic exercise most of the days of the week in addition to low fat, low carb diet as the only way to control obesity and treat dysmetabolic syndrome. This has been fully explained to the patient, who indicates understanding.Patient was offered full assistance with diet and exercise plan. Pap smear recommended Health maintenance reviewed with the patient, COVID-19 booster recommended Mammograms patient receiving outside [place] Fabiana Pryor expressed good understanding of the issues discussed and all questions were addressed and fully answered. Fabiana Pryor was also advised to call back directly if there are further questions, or if these symptoms fail to improve as anticipated or worsen. This has been fully explained to the patient, who indicates understanding. documented in this encounter Miscellaneous Notes * Result Encounter Note - Annalisa Christopher MD - 04/22/2023 3:44 PM CDT Contact patient regarding result. documented in this encounter Plan of Treatment Upcoming Encounters Date Type Department Care Team (Late st Contact Info) Description 04/25/2025 8:20 AM CDT Office Visit [facility] Care - [address] [place] [address] Annalisa Christopher MD [address] [place] [address] [address] [place] [address] Scheduled Referrals Name Type Priority Associated Diagnoses Order Schedule AMB REFERRAL TO GASTROENTEROLOGY Outpatient Referral Routine Screening for colorectal cancer Ordered: 04/19/2023 documented as of this encounter Procedures Procedure Name Priority Date/Time Associated Diagnosis Comments TSH REFLEXIVE Routine 04/19/2023 11:34 AM CDT Physical CBC WITH DIFFERENTIAL Routine 04/19/2023 11:34 AM CDT Physical URINALYSIS W/REFLEX MICROSCOPIC Routine 04/19/2023 11:34 AM CDT HEMOGLOBIN A1C Routine 04/19/2023 11:34 AM CDT Physical LIPID PANEL Routine 04/19/2023 11:34 AM CDT Physical COMPREHENSIVE METABOLIC PANEL Routine 04/19/2023 11:34 AM CDT Physical documented in this encounter Results * (ABNORMAL) URINALYSIS W/REFLEX MICROSCOPIC (04/19/2023 11:34 AM CDT) COLOR UA YELLOW YELLOW [facility] CLARITY UA CLEAR CLEAR [facility] SPECIFIC GRAVITY UA 1.016 1.001 - 1.035 [facility] PH UA 7.5 5.0 - 8.0 [facility] [place] GLUCOSE UA NEGATIVE NEGATIVE [facility] BILIRUBIN UA NEGATIVE NEGATIVE [facility] [place] KETONES UA NEGATIVE NEGATIVE [facility] BLOOD UA TRACE(A) NEGATIVE [facility] PROTEIN UA NEGATIVE NEGATIVE [facility] NITRITE UA NEGATIVE NEGATIVE [facility] LEUKOCYTE ESTERASE UA 3+(A) NEGATIVE [facility] WBC UA 0-5 < OR = 5 /HPF [facility] [place] RBC UA 0-2 < OR = 2 /HPF [employer] [facility] [place] EPITHELIAL CELLS, URINE 6-10(A) < OR = 5 /HPF [facility] BACTERIA UA NONE SEEN NONE SEEN /HPF [facility] [place] HYALINE CAST NONE SEEN NONE SEEN /LPF [facility] URINE NOTE [facility] Comment: This urine was analyzed for the presence of WBC, RBC, bacteria, casts, and other formed elements. Only those elements seen were reported. FASTING:NO FASTING: NO Test Performed at: [facility] [place] [address] [place] ??[phone] Albin Lewis 04/19/2023 11:3 4 AM CDT 04/19/2023 11:35 AM CDT Annalisa Christopher MD URINE ORDERABLES [facility] [phone] [place] [address] [place] [address] * (ABNORMAL) CBC WITH DIFFERENTIAL (04/19/2023 11:34 AM CDT) WBC 6.4 3.8 - 10.8 Thousand/ uL [facility] RBC 5.00 3.80 - 5.10 Million/u L [facility] HEMOGLOBIN 15.2 11.7 - 15.5 g/dL [facility] HEMATOCRIT 46.6(H) 35.0 - 45.0 % [facility] MCV 93.2 80.0 - 100.0 fL [facility] MCH 30.4 27.0 - 33.0 pg [facility] MCHC 32.6 32.0 - 36.0 g/dL [facility] RDW 12.4 11.0 - 15.0 % [facility] PLATELETS 277 140 - 400 Thousand/ uL [facility] MPV 10.0 7.5 - 12.5 fL [facility] NEUTROPHIL ABSOLUTE 4,186 1,500 - 7,800 cells/uL [facility] LYMPHOCYTE ABSOLUTE 1,600 850 - 3,900 cells/uL [facility] MONOCYTE ABSOLUTE 531 200 - 950 cells/uL [facility] EOSINOPHIL ABSOLUTE 51 15 - 500 cells/uL [facility] BASOPHILS ABSOLUTE 32 0 - 200 cells/uL [facility] NEUTROPHIL 65.4 % [facility] LYMPHOCYTES 25.0 % [facility] MONOCYTE 8.3 % [facility] EOSINOPHILS 0.8 % [facility] BASOPHILS 0.5 % [facility] Comment: FASTING:NO FASTING: NO Test Performed at: [facility] [address] [place] ??[phone] Albin Lewis Blood 04/19/2023 11:3 4 AM CDT 04/19/2023 11:35 AM CDT Annalisa Christopher MD HEMATOLOGY ORDERABLE S Performing Organization Address City/State/ZIP [facility] Phone Number [facility] [phone] [facility] [place] [address] [place] [address] * TSH REFLEXIVE (04/19/2023 11:34 AM CDT) TSH 0.74 mIU/L [facility] Comment: ?Reference Range ?> or = 20 Years ??0.40-4.50 ? Ranges ?First trimester ?0.26-2.66 ?Second trimester ?? 0.55-2.73 ?Third trimester ?0.43-2.91 FASTING:NO FASTING: NO Test Performed at: [facility] [address] [place], [place] ??[address] Albin Lewis MD Blood 04/19/2023 11:3 4 AM CDT 04/19/2023 11:35 AM CDT Annalisa Christopher MD CHEMISTRY ORDERABLES Performing Organization Address City/State/ZIP [facility] Phone Number [facility] [phone] [facility] [address] [facility] [address] * HEMOGLOBIN A1C (04/19/2023 11:34 AM CDT) HEMOGLOBIN A1C 5.4 <5.7 % of total Hgb [facility] Comment: For the purpose of screening for the presence of diabetes: <5.7% ? Consistent with the absence of diabetes 5.7-6.4% ?Consistent with increased risk for diabetes ?(prediabetes) > or =6.5% ??Consistent with diabetes This assay result is consistent with a decreased risk of diabetes. Currently, no consensus exists regarding use of hemoglobin A1c for diagnosis of diabetes in children. According to [place] Diabetes Association (ADA) guidelines, hemoglobin A1c <7.0% represents optimal control in non- diabetic patients. Different metrics may apply to specific patient populations. Standards of Medical Care in Diabetes(ADA). ?? ESTIMATED AVERAGE GLUCOSE (MG/DL) 108 mg/dL [facility] ESTIMATED AVERAGE GLUCOSE (MMOL/L) 6.0 mmol/L [facility] Comment: FASTING:NO FASTING: NO Test Performed at: [facility] [address] [place], [place] ??[address] Albin Lewis Blood 04/19/2023 11:3 4 AM CDT 04/19/2023 11:35 AM CDT Annalisa Christopher MD CHEMISTRY ORDERABLES [facility] [phone] [place] [address] [place] [address] * (ABNORMAL) LIPID PANEL (04/19/2023 11:34 AM CDT) CHOLESTEROL 215(H) <200 mg/dL [facility] HDL 52 > OR = 50 mg/dL [facility] TRIGLYCERIDE 87 <150 mg/dL [facility] LDL CALCULATED 144(H) mg/dL (calc) [facility] Comment: Reference range: <100 Desirable range <100 mg/dL for primary prevention; ?? <70 mg/dL for patients with CHD or diabetic patients with > or = 2 CHD risk factors. LDL-C is now calculated using the Thony calculation, which is a validated novel method providing better accuracy than the Friedewald equation in the estimation of LDL-C. Boris COLEMAN et al. TONJA. 2013;310(19): 1579-3245 (http://education.[employer]/faq/ABI444) CHOL/HDL RATIO 4.1 <5.0 (calc) [facility] TOTAL NON-HDL CHOL(LDL+VLDL) 163(H) <130 mg/dL (calc) [facility] Comment: For patients with diabetes plus 1 major ASCVD risk factor, treating to a non-HDL-C goal of <100 mg/dL (LDL-C of <70 mg/dL) is considered a therapeutic option. FASTING:NO FASTING: NO Test Performed at: [place] [address] [place] ??[phone] Albin Mulligan Blood 04/19/2023 11:3 4 AM CDT 04/19/2023 11:35 AM CDT Annalisa Christopher MD CHEMISTRY ORDERABLES [facility] [phone] [place] [address] [place] [address] * COMPREHENSIVE METABOLIC PANEL (04/19/2023 11:34 AM CDT) GLUCOSE 96 65 - 139 mg/dL [facility] Comment: ? Non-fasting reference interval BUN 14 7 - 25 mg/dL [facility] CREATININE 0.80 0.50 - 0.99 mg/dL [facility] GFR 91 > OR = 60 mL/min/1 .73m2 [facility] Comment: The eGFR is based on the CKD-EPI 2020 equation. To calculate the new eGFR from a previous Creatinine or Cystatin C result, go to https://www.kidney.org/professionals/ kdoqi/gfr%5Fcalculator BUN/CREAT RATIO NOT APPLICABLE 6 - 22 (calc) [facility] SODIUM 135 135 - 146 mmol/L [facility] POTASSIUM 4.5 3.5 - 5.3 mmol/L [facility] CHLORIDE 102 98 - 110 mmol/L [facility] CO2 28 20 - 32 mmol/L [facility] CALCIUM 9.4 8.6 - 10.2 mg/dL [facility] TOTAL PROTEIN 7.1 6.1 - 8.1 g/dL [facility] ALBUMIN 4.5 3.6 - 5.1 g/dL [facility] GLOBULIN 2.6 1.9 - 3.7 g/dL (calc) [facility] ALBUMIN/GLOBULIN RATIO 1.7 1.0 - 2.5 (calc) [facility] BILIRUBIN TOTAL 0.5 0.2 - 1.2 mg/dL [facility] ALKALINE PHOSPHATASE 86 31 - 125 U/L [facility] AST 18 10 - 35 U/L [facility] ALT 25 6 - 29 U/L [facility] Comment: FASTING:NO FASTING: NO Test Performed at: [place] [address] [place] ??[phone] AnnaReynaldo Mulligan Blood 04/19/2023 11:3 4 AM CDT 04/19/2023 11:35 AM CDT Annalisa Christopher MD CHEMISTRY ORDERABLES [facility] [phone] [place] [address] [place] [address] documented in this encounter Visit Diagnoses Diagnosis Physical- Primary Screening for colorectal cancer Special screening for malignant neoplasms, colon Need for Tdap vaccination Need for prophylactic vaccination with combined fayyblmuat-pcukemk-lxbqqevsu (DTP) vaccine Colon cancer screening Special screening for malignant neoplasms, colon Mixed hyperlipidemia Mild intermittent asthma without complication Unspecified asthma Obesity (BMI 30.0-34.9) Obesity, unspecified documented in this encounter Care Teams Title Manager Relationship Specialty Start Date End Date Annalisa Christopher MD [address] [place] [address] PCP - General 07/07/08 documented as of this encounter
--- OUTSIDE RECORDS SUMMARY | 2024-10-06 18:13 | XMS_ITS | Encounter Summary ---
Author Organization [facility] Address [address] [place] [address] Care Team Providers Care Hand Sample Maker Name Role Phone Annalisa Christopher MD Primary Care Provider [phone] Reason for Visit * Reason Comments Physical Sinus Problem cough Encounter Details Date Type Department Care Team (Late st Contact Info) Description 08/06/2018 8:30 AM PNEUMATIC DEICER INSPECTOR Office Visit [facility] Primary Care - [address] [place] [address] Annalisa Christopher MD [address] [place] [address] [place] [address] Acute non-recurrent maxillary sinusitis (Primary Dx); Need for influenza vaccination; PTSD (post-traumatic stress disorder) Social History Tobacco [...] Sign Reading Time Taken Comments Blood Pressure 122/80 08/06/2018 8:29 AM PNEUMATIC DEICER INSPECTOR Pulse - - Temperature 36.8 ??C (98.2 ??F) 08/06/2018 8:29 AM CS T Respiratory Rate - - Oxygen Saturation - - Inhaled Oxygen Concentration - - Weight 89.8 kg (198 lb) 08/06/2018 8:29 AM PNEUMATIC DEICER INSPECTOR Height 170.2 cm (5' 7 ) 08/06/2018 8:29 AM PNEUMATIC DEICER INSPECTOR Body Mass Index 31.01 08/06/2018 8:29 AM PNEUMATIC DEICER INSPECTOR documented in this encounter Progress Notes * Annalisa Christopher MD - 08/06/2018 8:37 AM CST HISTORY OF PRESENT ILLNESS Fabiana Pryor, a 43 y.o. female presents with a Chief Complaint of Physical and Sinus Problem (cough) Subjective HPI Fabiana Pryor is a 43 y.o. female presenting with Sinus pressure and sinus drainage . Cough w/yellow , green , pressure in her ears x 1 week REVIEW OF SYSTEMS Review of Systems Constitutional: Positive for fatigue. Negative for chills. HENT: Positive for congestion and sinus pressure. Eyes: Negative. [...] for behavioral problems. Objective PHYSICAL EXAM BP 122/80 Ht 5' 7 (1.702 m) Wt 89.8 kg (198 lb) BMI 31.01 kg/m?? Physical Exam Constitutional: She is oriented to person, place, and time. No distress. HENT: Head: Normocephalic and atraumatic. Nose: Mucosal edema present. Eyes: Pupils are equal, round, and reactive to light. EOM are normal. Cardiovascular: Normal rate and regular rhythm. Pulmonary/Chest: Effort normal and breath sounds normal. Musculoskeletal: She exhibits no edema. Neurological: She is alert and oriented to person, place, and time. Skin: She is not diaphoretic. Procedures Assessment ASSESSMENT and PLAN: ICD-10-CM ICD-9-CM 1. Acute non-recurrent maxillary sinusitis J01.00 461.0 amoxicillin (AMOXIL) 875 mg tablet 2. Need for influenza vaccination Z23 V04.81 INFLUENZA VACCINE QUAD SPLIT 6 MOS+ PF IM 3. PTSD (post-traumatic stress disorder) F43.10 309.81 escitalopram oxalate (LEXAPRO) 10 mg tablet Advised to call back directly if there are further questions, or if these symptoms fail to improve as anticipated or worsen. MATIC DEICER INSPECTOR documented in this encounter Plan of Treatment Upcoming Encounters Date Type Department Care Team (Late st Contact Info) Description 04/25/2025 8:20 AM CDT Office Visit [facility] Primary Care - [facility] [address] [facility] [address] [place] [address] Annalisa Christopher MD [address] [facility] [address] [place] [address] documented as of this encounter Visit Diagnoses Diagnosis Acute non-recurrent maxillary sinusitis- Primary Need for influenza vaccination Need for prophylactic vaccination and inoculation against influenza PTSD (post-traumatic stress disorder) Posttraumatic stress disorder documented in this encounter Additional Health Concerns Assessment Noted Time PHQ-9 Depression Total Score: 1 06/06/20 16 9:00 AM CDT documented as of this encounter Care Teams Hand Sample Maker Relationship Specialty Start Date End Date Annalisa Christopher MD [address] [facility] [address] [place] [address] PCP - General 07/07/08 documented as of this encounter
--- OUTSIDE RECORDS SUMMARY | 2024-10-06 18:13 | XMS_ITS | Encounter Summary ---
Author Organization [facility] Address [address] [place] [address] Care Team Providers Care Exerciser Horse Name Role Phone Annalisa Christopher MD Primary Care Provider [phone] Reason for Visit * Reason Comments Medication Refill Encounter Details Date Type Department Care Team (Late st Contact Info) Description 02/04/2020 Refill [facility] - [address] [place] [address] Annalisa Christopher MD [address] [place] [address] [address] [place] [address] PTSD (post-traumatic stress disorder) Social [...] encounter Miscellaneous Notes * Telephone Encounter - Josefina Dye - 02/04/2020 2:30 PM CDT Last office visit 03/29 documented in this encounter Plan of Treatment Upcoming Encounters Date Type Department Care Team (Late st Contact Info) Description 04/25/2025 8:20 AM CDT Office Visit [facility] [address] [facility] [address] [place] [phone] Annalisa Christopher MD [address] [place] [address] documented as of this encounter Visit Diagnoses Diagnosis PTSD (post-traumatic stress disorder) Posttraumatic stress disorder documented in this encounter Additional Health Concerns Assessment Noted Time PHQ-9 Depression Total Score: 1 06/06/20 16 9:00 AM CDT documented as of this encounter Care Teams Exerciser Horse Relationship Specialty Start Date End Date Annalisa Christopher MD [address] [place] [address] PCP - General 07/07/08 documented as of this encounter
--- OUTSIDE RECORDS SUMMARY | 2024-10-06 18:13 | XMS_ITS | Encounter Summary ---
Author Organization [facility] Address [address] [place] [address] Care Team Providers Care Photoengraving Finisher Name Role Phone Annalisa Christopher MD Primary Care Provider [phone] Reason for Visit * Reason Comments Medication Refill Encounter Details Date Type Department Care Team (Late st Contact Info) Description 09/10/2020 Refill [facility] [address] [place] [address] [place] [address] Annalisa Christopher MD [address] [place] [address] [address] [place] [address] Mild intermittent asthma without complication [...] Description 04/25/2025 8:20 AM CDT Office Visit [facility] [address] [place] [address] [address] [place] [address] Annalisa Christopher MD [address] [place] [address] [address] [place] [address] documented as of this encounter Visit Diagnoses Diagnosis Mild intermittent asthma without complication Unspecified asthma documented in this encounter Additional Health Concerns Assessment Noted Time PHQ-9 Depression Total Score: 1 06/06/20 16 9:00 AM CDT documented as of this encounter Care Teams Photoengraving Finisher Relationship Specialty Start Date End Date Annalisa Christopher MD [address] [place] [address] PCP - General 07/07/08 documented as of this encounter
--- OUTSIDE RECORDS SUMMARY | 2024-10-06 18:13 | XMS_ITS | Encounter Summary ---
Author Organization [facility] Address [address] [facility] Attn: [place] [address] Care Team Providers Care Coal Wheeler Name Role Phone Annalisa Christopher MD Primary Care Provider [phone] Encounter Details Date Type Department Care Team (Latest Contact Info) Description 02/17/2021 Travel Social History Tobacco Use Types Packs/Day Years [...] have Coronavirus / COVID-19? No / Unsure 02/17/2021 9:08 AM CDT documented as of this encounter Plan of Treatment Upcoming Encounters Date Type Department Care Team (Late st Contact Info) Description 04/25/2025 8:20 AM CDT Office Visit [facility] [address] [place] [address] [address] [place] [address] Annalisa Christopher MD [address] [place] [address] Rd [address] [place] [address] documented as of this encounter Visit Diagnoses Not on filedocumented in this encounter Care Teams Coal Wheeler Relationship Specialty Start Date End Date Annalisa Christopher MD [address] [facility] [address] [place] [address] PCP - General 07/07/08 documented as of this encounter
--- OUTSIDE RECORDS SUMMARY | 2024-10-06 18:13 | XMS_ITS | Encounter Summary ---
Author Organization [facility] Address [address] [place] [address] Care Team Providers Care Metal Filer Name Role Phone Annalisa Christopher MD Primary Care Provider [phone] Encounter Details Date Type Department Care Team (Late st Contact Info) Description 02/24/2022 Orders Only [address] [place] [address] Provider, Abstract NO ADDRESS ON FILE Social [...] Description 04/25/2025 8:20 AM CDT Office Visit [address] [place] [address] Annalisa Christopher MD [address] [place] [address] [address] [place] [address] documented as of this encounter Procedures Procedure Name Priority Date/Time Associated Diagnosis Comments MAMMO SCREENING BILAT Routine 02/22/2022 documented in this encounter Results * MAMMO SCREENING BILAT (02/22/2022) Anatomical Region Laterality Modality Breast Bilateral Other Abstract Provider MAMMO ORDERABLES documented in this encounter Visit Diagnoses Not on filedocumented in this encounter Care Teams Metal Filer Relationship Specialty Start Date End Date Annalisa Christopher MD [address] [place] [address] PCP - General 07/07/08 documented as of this encounter
--- OUTSIDE RECORDS SUMMARY | 2024-10-06 18:13 | XMS_ITS | Encounter Summary ---
Author Organization [facility] Address [address] [facility] Attn: Epic Prelude ADT [place] [address] Care Team Providers Care Piecer Name Role Phone Annalisa Christopher MD Primary Care Provider [phone] Encounter Details Date Type Department Care Team (Latest Contact Info) Description 05/06/2020 Travel Social History Tobacco Use Types Packs/Day [...] or suspected to have Coronavirus / COVID-19? Unable to assess 05/06/2020 11:18 AM CDT documented as of this encounter Plan of Treatment Upcoming Encounters Date Type Department Care Team (Late st Contact Info) Description 04/25/2025 8:20 AM CDT Office Visit [facility] Primary Care - [facility] [address] [place] [address] [address] [place] [address] Annalisa Christopher MD [address] [place] [address] [address] [place] [address] documented as of this encounter Visit Diagnoses Not on filedocumented in this encounter Additional Health Concerns Assessment Noted Time PHQ-9 Depression Total Score: 1 06/06/20 16 9:00 AM CDT documented as of this encounter Care Teams Piecer Relationship Specialty Start Date End Date Annalisa Christopher MD [address] [facility] [address] [place] [address] PCP - General 07/07/08 documented as of this encounter
--- OUTSIDE RECORDS SUMMARY | 2024-10-06 18:13 | XMS_ITS | Encounter Summary ---
Author Organization [facility] Address [address] [place] [address] Care Team Providers Care Rotary Saw Operator Name Role Phone Kj Haas MD Primary Care Provider [phone] Reason for Visit * Reason Onset Date Comments Sinus Infection 12/05/2019 Encounter Details Date Type Department Care Team (Late st Contact Info) Description 12/05/2019 Telephone [facility] Primary Care - [address] [place] [address] Kj Haas MD [address] [place] [address] [address] [place] [address] Sinus Infection Social History Tobacco [...] encounter Miscellaneous Notes * Telephone Encounter - Nesha Walls - 12/06/2019 1:17 PM CDT Spoke to pt - agreeable with plan * Addendum Note - Kj Haas MD - 12/06/2019 11:57 AM CDTAddended by: KJ HAAS on: 12/06/2019 11:57 AM Modules accepted: Orders * Telephone Encounter - Kj Haas MD - 12/06/2019 11:52 AM CDT Amox and medrol dose elizabeth sent Please inform patient. * Telephone Encounter - Emely Cuadra - 12/06/2019 11:24 AM CDT Pt calling back. Pt says his flaring up asthma Wheezing, sob Pt is using inhalers Pt is already taking zyrtec d, mucinex, flonase pls see symptoms below. pls advise? * Telephone Encounter - Nesha Walls - 12/05/2019 4:04 PM CDT lmor Advised pt to try claritin or zyrtec, flonase and mucinex. I saw hx of asthma so asked if pt is having SOB or wheezing to call our office. Also explained if she develops fevers to call our office * Telephone Encounter - Sanjana Tompkins - 12/05/2019 11:12 AM CDT headache Drainage Ear pressure Cough Green mucous Denies fever Slight sore throat from drainage. Denies traveling or being around anyone that has traveled. Sx X 1 1/2 weeks. Using zurtic d with no help. Asking for script if possible. Please advise documented in this encounter Plan of Treatment Upcoming Encounters Date Type Department Care Team (Late st Contact Info) Description 04/25/2025 8:20 AM CDT Office Visit [facility] Care - [facility] [address] [place] [address] [address] [place] [address] Kj Haas MD [address] [place] [phone] documented as of this encounter Visit Diagnoses Not on filedocumented in this encounter Additional Health Concerns Assessment Noted Time PHQ-9 Depression Total Score: 1 06/06/20 16 9:00 AM CDT documented as of this encounter Care Teams Rotary Saw Operator Relationship Specialty Start Date End Date Kj Haas MD [address] [place] [address] PCP - General 07/07/08 documented as of this encounter
--- OUTSIDE RECORDS SUMMARY | 2024-10-06 18:13 | XMS_ITS | Encounter Summary ---
Author Organization [facility] Address [address] [place] [address] Care Team Providers Care Relay Repairer Name Role Phone Annalisa Christopher MD Primary Care Provider [phone] Reason for Visit * Reason Comments Medication Refill Encounter Details Date Type Department Care Team (Late Contact Info) Description 04/08/[address] [place] [address] Elkin Alvarez MD NO ADDRESS ON [...] Description 04/25/2025 8:20 AM CDT Office Visit [facility] [address] [place] [address] [address] [place] [address] Annalisa Christopher MD [address] [place] [address] [address] [place] [address] documented as of this encounter Visit Diagnoses Diagnosis Mild intermittent asthma without complication Unspecified asthma documented in this encounter Care Teams Relay Repairer Relationship Specialty Start Date End Date Annalisa Christopher MD [address] [facility] [address] [place] [address] PCP - General 07/07/08 documented as of this encounter
--- OUTSIDE RECORDS SUMMARY | 2024-10-06 18:13 | XMS_ITS | Encounter Summary ---
Author Organization [facility] Address [address] [place] [address] Care Team Providers Care Baseball Glove Stuffer Name Role Phone Annalisa Christopher MD Primary Care Provider [phone] Reason for Visit * Reason Onset Date Comments Wants Appointment 03/29/2019 Encounter Details Date Type Department Care Team (Late st Contact Info) Description 03/29/2019 Telephone [facility] Primary Care - [address] [place] [address] Annalisa Christopher MD [address] [place] [address] [address] [place] [address] Wants Appointment Social History Tobacco [...] * Telephone Encounter - Rita Maier - 03/29/2019 9:11 AM CDT appt scheduled * Telephone Encounter - Annalisa Christopher MD - 03/29/2019 9:05 AM CDT Add on my SV for today * Telephone Encounter - Emely Cuadra - 03/29/2019 8:44 AM CDT Asthma flare up [place] like has had heart palpitations last couple of days. Is in center of chest No pain, x 2days Using inhalers documented in this encounter Plan of Treatment Upcoming Encounters Date Type Department Care Team (Late st Contact Info) Description 04/25/2025 8:20 AM CDT Office Visit [facility] Primary Care - [facility][1] [address] [place] [address] Annalisa Christopher MD [address] [facility] [place] [address] [place] [address] documented as of this encounter Visit Diagnoses Not on filedocumented in this encounter Additional Health Concerns Assessment Noted Time PHQ-9 Depression Total Score: 1 06/06/20 16 9:00 AM CDT documented as of this encounter Care Teams Baseball Glove Stuffer Relationship Specialty Start Date End Date Annalisa Christopher MD [address] [facility] [place] [address] [place] [address] PCP - General 07/07/08 documented as of this encounter
--- OUTSIDE RECORDS SUMMARY | 2024-10-06 18:13 | XMS_ITS | Encounter Summary ---
Author Organization [facility] Address [address] [place] [address] Care Team Providers [employer] Professional Name Role Phone Annalisa Christopher MD Primary Care Provider [phone] Reason for Visit * Reason Comments Medication Refill Encounter Details Date Type Department Care Team (Late st Contact Info) Description 05/05/2020 Telephone [facility] Primary Care - [address] [place] [phone] Annalisa Christopher MD [address] [place] [address] [place] [phone] Medication Refill Social History Tobacco Use Types Packs/Day Years [...] AM CDT documented as of this encounter Miscellaneous Notes * Telephone Encounter - Emely Cuadra - 05/06/2020 4:57 PM CDT lmor for pt * Telephone Encounter - Annalisa Christopher MD - 05/06/2020 4:49 PM CDT Lab orders placed Please inform patient. * Telephone Encounter - Shelly Vidal - 05/06/2020 11:19 AM CDT Spoke to pt and she states that she will not have time to came in till Dec Made appt Is she needing lab orders done before that? * Telephone Encounter - Melani Osorio - 05/05/2020 10:11 AM CDT lmor in detail * Telephone Encounter - Fabiana Finnegan LPN - 05/05/2020 8:24 AM CDT Needs to be seen for additional refills due for labwork documented in this encounter Plan of Treatment Upcoming Encounters Date Type Department Care Team (Late st Contact Info) Description 04/25/2025 8:20 AM CDT Office Visit [facility] Primary Care - [address] [place] [phone] Annalisa Christopher MD [address] [place] [address] [address] [place] [address] documented as of this encounter Results * URINALYSIS WITH REFLEX MICROSCOPIC (10/22/2020 3:33 PM CORRUGATED SHEET MATERIAL SHEETER) COLOR UA Yellow Pale to Dark Yellow 10/22/2020 10:10 PM CORRUGATED SHEET MATERIAL SHEETER [facility] LABORATORY [facility] CLARITY UA Clear Clear 10/22/2020 10:10 PM CORRUGATED SHEET MATERIAL SHEETER [facility] LABORATORY [facility] SPECIFIC GRAVITY UA 1.015 1.003 - 1.035 10/22/2020 10:10 PM CORRUGATED SHEET MATERIAL SHEETER [employer] LABORATORY [facility] PH UA 7.0 5.0 - 8.0 10/22/2020 10:10 PM CORRUGATED SHEET MATERIAL SHEETER [employer] LABORATORY [facility] LEUKOCYTE ESTERASE UA Negative Negative 10/22/2020 10:10 PM [facility] [employer] LABORATORY [facility] NITRITE UA Negative Negative 10/22/2020 10:10 PM CORRUGATED SHEET MATERIAL SHEETER [employer] LABORATORY [facility] PROTEIN UA Negative Negative 10/22/2020 10:10 PM CORRUGATED SHEET MATERIAL SHEETER [employer] LABORATORY [facility] GLUCOSE UA Negative Negative 10/22/2020 10:10 PM CORRUGATED SHEET MATERIAL SHEETER [employer] LABORATORY SERVICES - [facility] KETONES UA Negative Negative 10/22/2020 10:10 PM CORRUGATED SHEET MATERIAL SHEETER [employer] LABORATORY [facility] UROBILINOGEN UA Normal <2.0 mg/dL 10:10 PM CORRUGATED SHEET MATERIAL SHEETER [employer] LABORATORY [facility] BILIRUBIN UA Negative Negative 10/22/2020 10:10 PM CORRUGATED SHEET MATERIAL SHEETER [employer] LABORATORY [facility] BLOOD UA Negative Negative 10/22/2020 10:10 PM CORRUGATED SHEET MATERIAL SHEETER [employer] LABORATORY [facility] Urine URINE SPECIMEN OBTAINED BY CLEAN CATCH PROCEDURE / Unknown Collection / Unknown 10/22/2020 3:33 PM CORRUGATED SHEET MATERIAL SHEETER 10/22/2020 3:33 PM CORRUGATED SHEET MATERIAL SHEETER Annalisa Christopher MD URINE ORDERABLES [facility] [employer] [facility] CLIA# [id number] [address] [place] [id number] * TSH REFLEXIVE (10/22/2020 11:17 AM CORRUGATED SHEET MATERIAL SHEETER) TSH 0.37 0.27 - 4.20 uIU/mL 10/22/2020 4:30 PM CORRUGATED SHEET MATERIAL SHEETER [facility] [employer] [facility] Blood Venipuncture / Unknown 10/22/2020 11:17 AM CORRUGATED SHEET MATERIAL SHEETER 10/22/2020 11:17 AM CORRUGATED SHEET MATERIAL SHEETER Annalisa Christopher MD CHEMISTRY ORDERABLES [facility]# [id number] [address] [place] [address] * HEMOGLOBIN A1C (10/22/2020 11:17 AM CORRUGATED SHEET MATERIAL SHEETER) [facility] HEMOGLOBIN A1C 5.2 <5.7 % 10/22/2020 5:25 PM CORRUGATED SHEET MATERIAL SHEETER [facility] [employer] [facility] EST. AVG GLUCOSE, A1C 103 mg/dL 10/22/2020 5:[address] [facility] [employer] [facility] Blood Venipuncture / Unknown 10/22/2020 11:17 AM CORRUGATED SHEET MATERIAL SHEETER 10/22/2020 11:17 AM CORRUGATED SHEET MATERIAL SHEETER [facility] [employer] [facility] - 10/22/2020 5:25 PM CORRUGATED SHEET MATERIAL SHEETER HGB A1C INTERPRETATION NORMAL: ? <5.7% PRE-DIABETES: 5.7 - 6.4% DIABETES: ? 6.5% OR GREATER Annalisa Christopher MD CHEMISTRY ORDERABLES [facility] [id number] [address] [place] [address] * VITAMIN D 25 HYDROXY (10/22/2020 11:17 AM CORRUGATED SHEET MATERIAL SHEETER) [facility] VITAMIN D TOTAL (25OH) 83 30 - 100 ng/mL 10/22/2020 4:[address] [facility] [employer] [facility] Blood Venipuncture / Unknown 10/22/2020 11:17 AM CORRUGATED SHEET MATERIAL SHEETER 10/22/2020 11:17 AM CORRUGATED SHEET MATERIAL SHEETER [facility] [employer] [facility] - 10/22/2020 4:18 PM CORRUGATED SHEET MATERIAL SHEETER Interpretive Data Chart: Deficient: ? 0 - 20 ng/mL Insufficient: ?21 - 29 ng/mL Sufficient: ?30 - 100 ng/mL Increased Risk of Hypercalciuria: ??>100 ng/ml Toxic: ? >150 ng/ml Annalisa Christopher MD CHEMISTRY ORDERABLES [facility] LABORATORY SERVICES - [facility] CLIA# [id number] [address] [facility] [place] [address] * COMPREHENSIVE METABOLIC PANEL (10/22/2020 11:17 AM CORRUGATED SHEET MATERIAL SHEETER) Pathologist [facility] SODIUM 139 136 - 145 mmol/L 10/22/2020 4:17 PM [facility] [employer] LABORATORY SERVICES - . [facility] POTASSIUM 4.2 3.5 - 5.0 mmol/L 10/22/2020 4:17 PM [facility] [employer] LABORATORY SERVICES - [facility] CHLORIDE 104 98 - 107 mmol/L 10/22/2020 4:17 PM CORRUGATED SHEET MATERIAL SHEETER [employer] LABORATORY SERVICES - [facility] CO2 26 22 - 29 mmol/L 10/22/2020 4:17 PM [facility] [employer] LABORATORY SERVICES - [facility] CALCIUM 9.5 8.6 - 10.2 mg/dL 10/22/2020 4:17 PM [facility] [employer] LABORATORY SERVICES - [facility] BUN 10 6 - 20 mg/dL 10/22/2020 4:17 PM [facility] [employer] LABORATORY SERVICES - [facility] CREATININE 0.87 0.51 - 0.95 mg/dL 10/22/2020 4:17 PM CORRUGATED SHEET MATERIAL SHEETER [employer] LABORATORY SERVICES - [facility] GLUCOSE 98 74 - 99 mg/dL 10/22/2020 4:17 PM CORRUGATED SHEET MATERIAL SHEETER [employer] LABORATORY SERVICES - [facility] TOTAL PROTEIN 7.3 6.7 - 8.6 g/dL 10/22/2020 4:17 PM CORRUGATED SHEET MATERIAL SHEETER [employer] LABORATORY SERVICES - [facility] ALBUMIN 4.6 3.5 - 5.2 g/dL 10/22/2020 4:17 PM CORRUGATED SHEET MATERIAL SHEETER [employer] LABORATORY SERVICES - [facility] BILIRUBIN TOTAL 0.3 0.3 - 1.2 mg/dL 10/22/2020 4:17 PM CORRUGATED SHEET MATERIAL SHEETER [employer] LABORATORY SERVICES - [facility] ALKALINE PHOSPHATASE 88 35 - 104 U/L 10/22/2020 4:17 PM [facility] AST 17 <33 U/L 10/22/2020 4:17 PM [facility] ALT 23 <34 U/L 10/22/2020 4:17 PM [facility] GFR >60 >=60 mL/min/1.7 3 sq meter 10/22/2020 4:[address] [facility] LABORATORY [facility] Comment: eGFR has not been validated for use in the elderly (> 70 years of age), women, patients with serious co-morbid conditions, or persons with extremes of body size or muscle mass and should also be interpreted with caution in patients with acute kidney failure, dialysis dependent patients, patients reporting exceptional dietary intake (e.g. vegetarian diet, high protein diets, creatine supplementation), and patients with severe liver disease. Based on National Kidney Disease Education Program If patient is , please refer to the GFR result. GFR, >60 >=60 mL/min/1.7 3 sq meter 10/22/2020 4:[address] [facility] [employer] [facility] ANION GAP 9 8 - 16 mmol/L 10/22/2020 4:[address] [facility] [employer] [facility] Blood Venipuncture / Unknown 10/22/2020 11:17 AM CORRUGATED SHEET MATERIAL SHEETER 10/22/2020 11:17 AM [facility] Narrative [facility] - 10/22/2020 4:17 PM CORRUGATED SHEET MATERIAL SHEETER Samples containing indocyanine green cause interferences on Total and/or Direct Bilirubin and must not be measured. Annalisa Christopher MD CHEMISTRY ORDERABLES [facility] [employer] [facility] [id number] 5 [facility] [place] [address] * (ABNORMAL) CBC WITH DIFFERENTIAL (10/22/2020 11:17 AM CORRUGATED SHEET MATERIAL SHEETER) WBC 5.4 4.0 - 9.8 K/uL 10/22/2020 4:[address] [facility] LABORATORY SERVICES - [facility] RBC 5.14(H) 3.90 - 4.90 M/uL 10/22/2020 4:05 PM CORRUGATED SHEET MATERIAL SHEETER [employer] LABORATORY SERVICES - . [facility] HEMOGLOBIN 15.0(H) 11.8 - 14.8 g/dL 10/22/2020 4:05 PM CORRUGATED SHEET MATERIAL SHEETER [employer] LABORATORY SERVICES - [facility] HEMATOCRIT 47.6(H) 35.5 - 44.0 % 10/22/2020 4:05 PM CORRUGATED SHEET MATERIAL SHEETER [employer] LABORATORY SERVICES - [facility] MCV 92.6 82.0 - 99.0 fL 10/22/2020 4:05 PM CORRUGATED SHEET MATERIAL SHEETER [employer] LABORATORY SERVICES - [facility] MCH 29.2 27.2 - 32.6 pg 10/22/2020 4:05 PM CORRUGATED SHEET MATERIAL SHEETER [employer] LABORATORY SERVICES - [facility] MCHC 31.5 31.5 - 35.5 g/dL 10/22/2020 4:05 PM [employer] LABORATORY SERVICES - [facility] RDW 12.3 11.5 - 14.5 % 10/22/2020 4:05 PM [employer] LABORATORY SERVICES - [facility] RDW-STDEV 42.1 37.1 - 48.7 fL 10/22/2020 4:05 PM CORRUGATED SHEET MATERIAL SHEETER [employer] LABORATORY SERVICES - [facility] PLATELETS 295 140 - 350 K/uL 10/22/2020 4:05 PM [employer] LABORATORY SERVICES - [facility] MPV 10.5 9.3 - 12.4 fL 10/22/2020 4:05 PM [employer] LABORATORY SERVICES - . [facility] NEUTROPHILS 60 % 10/22/2020 4:05 PM CORRUGATED SHEET MATERIAL SHEETER [employer] LABORATORY SERVICES - . [facility] LYMPHOCYTES 31 % 10/22/2020 4:05 PM CORRUGATED SHEET MATERIAL SHEETER [employer] LABORATORY SERVICES - . [facility] MONOCYTES 7 % 10/22/2020 4:05 PM CORRUGATED SHEET MATERIAL SHEETER [employer] LABORATORY SERVICES - [facility] EOSINOPHILS 1 % 10/22/2020 4:05 PM CORRUGATED SHEET MATERIAL SHEETER [employer] LABORATORY SERVICES - . [facility] BASOPHILS 1 % 10/22/2020 4:05 PM CORRUGATED SHEET MATERIAL SHEETER [employer] LABORATORY SERVICES - . [facility] IMMATURE GRANULOCYTES 0 % 10/22/2020 4:05 PM CORRUGATED SHEET MATERIAL SHEETER [employer] LABORATORY SERVICES - . [facility] NEUTROPHIL ABSOLUTE 3.26 1.90 - 7.00 K/uL 10/22/2020 4:05 PM CORRUGATED SHEET MATERIAL SHEETER [facility] LABORATORY SERVICES - [facility] LYMPHOCYTE ABSOLUTE 1.67 0.70 - 4.50 K/uL 10/22/2020 4:[address] [facility] LABORATORY [facility] MONOCYTE ABSOLUTE 0.40 0.10 - 1.30 K/uL 10/22/2020 4:[address] [facility] LABORATORY [facility] EOSINOPHIL ABSOLUTE 0.04 0.00 - 0.70 K/uL 10/22/2020 4:[address] [facility] LABORATORY [facility] BASOPHILS ABSOLUTE 0.03 0.00 - 0.20 K/uL 10/22/2020 4:05 PM [facility] [employer] LABORATORY [facility] - . [facility] IMMATURE GRANULOCYTES ABSOLUTE 0.01 0.00 - 0.03 K/uL 10/22/2020 4:[address] [facility] [employer] [facility] Blood Venipuncture / Unknown 10/22/2020 11:17 AM CORRUGATED SHEET MATERIAL SHEETER 10/22/2020 11:17 AM CORRUGATED SHEET MATERIAL SHEETER Annalisa Christopher MD HEMATOLOGY ORDERABLE S [facility] [employer] [facility]# [id number] 5 [place], [place] [id number] * (ABNORMAL) LIPID PANEL (10/22/2020 11:17 AM CORRUGATED SHEET MATERIAL SHEETER) CHOLESTEROL 192 <200 mg/dL 10/22/2020 4:[address] [facility] [employer] [facility] TRIGLYCERIDE 55 <150 mg/dL 10/22/2020 4:[address] [facility] [employer] [facility] HDL 49 40 - 59 mg/dL 10/22/2020 4:[address] [facility] [employer] [facility] LDL CALCULATED 132(H) <100 mg/dL 10/22/2020 4:[address] [facility] [employer] [facility] NON-HDL CHOLESTEROL 143(H) <130 mg/dL 10/22/2020 4:[address] [facility] [employer] [facility] Blood Venipuncture / Unknown 10/22/2020 11:17 AM CORRUGATED SHEET MATERIAL SHEETER 10/22/2020 11:17 AM CORRUGATED SHEET MATERIAL SHEETER Narrative [facility] LABORATORY [facility] - 10/22/2020 4:17 PM CORRUGATED SHEET MATERIAL SHEETER TOTAL CHOLESTEROL ??mg/dL ??Desirable <200 ??Borderline high 200-239 ??High >=240 TRIGLYCERIDES ??mg/dL ??Normal <150 ??Borderline high 150-199 ??High 200-499 ??Very high >=500 HDL CHOLESTEROL ??mg/dL ??Low <40 ??Normal 40-59 ??Desirable >=60 NON HDL CHOLESTEROL mg/dL ??Optimal <130 ??Near Optimal 130-159 ??Borderline High 160-189 ??Very High >=190 CALCULATED LDL mg/dL ??LDL <70, OPTIMAL if have Atherosclerotic cardiovascular disease (ASCVD) ??or intermediate or higher (>7.5%) 10 year risk of ASCVD including most adults ??with diabetes. ??LDL <100, Optimal in adult patients with low (<7.5%) 10 year ASCVD risk ??LDL 100-160, Suboptimal ??LDL >160, High ??LDL >190, Very high ATPIII Guidelines Reference Ranges for Lipid Panels (NCEP/AMA) . Annalisa Christopher MD CHEMISTRY ORDERABLES [facility] LABORATORY [facility] CLIA# [id number] [address] [place] [address] documented in this encounter Visit Diagnoses Diagnosis Wellness examination- Primary Mild intermittent asthma without complication Unspecified asthma Vitamin D deficiency Unspecified vitamin D deficiency documented in this encounter Additional Health Concerns Assessment Noted Time PHQ-9 Depression Total Score: 1 06/06/20 16 9:00 AM CDT documented as of this encounter Care Teams [employer] Professional Relationship Specialty Start Date End Date Annalisa Christopher MD [address] [facility] [address] [place] [address] PCP - General 07/07/08 documented as of this encounter
--- OUTSIDE RECORDS SUMMARY | 2024-10-06 18:13 | XMS_ITS | Encounter Summary ---
Author Organization [facility] Address [address] [place] [address] Care Team Providers Care Sales Development Specialist Name Role Phone Annalisa Christopher MD Primary Care Provider [phone] Reason for Visit * Reason Comments Med Refill Encounter Details Date Type Department Care Team (Late st Contact Info) Description 05/09/2023 Refill [facility] [address] [place] [address] [place] [address] Annalisa Christopher MD [address] [place] [address] [address] [place] [address] Migraine without status migrainosus, not intractable, unspecified migraine type Social History Tobacco Use Types Packs/Day Years [...] Description 04/25/2025 8:20 AM CDT Office Visit [facility] [address] [place] [address] [address] [place] [address] Annalisa Christopher MD [address] [place] [address] [address] [place] [address] documented as of this encounter Visit Diagnoses Diagnosis Migraine without status migrainosus, not intractable, unspecified migraine type documented in this encounter Care Teams Sales Development Specialist Relationship Specialty Start Date End Date Annalisa Christopher MD [address] [facility] [address] [place] [address] PCP - General 07/07/08 documented as of this encounter
--- OUTSIDE RECORDS SUMMARY | 2024-10-06 18:13 | XMS_ITS | Encounter Summary ---
Author Organization [facility] Address [address] [place] [address] Care Team Providers Care Presentation Manager Name Role Phone Annalisa Christopher MD Primary Care Provider [phone] Encounter Details Date Type Department Care Team (Late st Contact Info) Description 04/01/2019 Orders Only [facility] [address] [place] [address] [address] [place] [address] Annalisa Christopher MD [address] [place] [address] [address] [place] [address] Visit for screening mammogram Social History Tobacco Use Types Packs/Day Years [...] 04/25/2025 8:20 AM CDT Office Visit [facility] [address] [place] [address] [address] [place] [address] Annalisa Christopher MD [address] [place] [address] [address] [place] [address] documented as of this encounter Procedures Procedure Name Priority Date/Time Associated Diagnosis Comments MAMMO SCREEN BILAT W OR WO CAD Routine 03/29/2019 Visit for screening mammogram documented in this encounter Results * MAMMO SCREEN BILAT W OR WO CAD (03/29/2019) Anatomical Region Laterality Modality Breast Bilateral Other Annalisa Christopher MD MAMMO ORDERABLES documented in this encounter Visit Diagnoses Diagnosis Visit for screening mammogram Other screening mammogram documented in this encounter Additional Health Concerns Assessment Noted Time PHQ-9 Depression Total Score: 1 06/06/20 16 9:00 AM CDT documented as of this encounter Care Teams Presentation Manager Relationship Specialty Start Date End Date Annalisa Christopher MD [address] [place] [address] PCP - General 07/07/08 documented as of this encounter
--- OUTSIDE RECORDS SUMMARY | 2024-10-06 18:13 | XMS_ITS | Encounter Summary ---
Author Organization [facility] Address [address] [place] [address] Care Team Providers Care Staff Development Nurse Name Role Phone Annalisa Christopher MD Primary Care Provider [phone] Reason for Visit * Reason Comments Medication Refill Encounter Details Date Type Department Care Team (Late st Contact Info) Description 08/22/[address] [place] [address] Annalisa Christopher MD [address] [place] [address] [address] [place] [address] Social History Tobacco Use Types Packs/Day Years [...] Description 04/25/2025 8:20 AM CDT Office Visit [facility] [address] [place] [address] [address] [place] [address] Annalisa Christopher MD [address] [place] [address] [address] [place] [address] documented as of this encounter Visit Diagnoses Not on filedocumented in this encounter Additional Health Concerns Assessment Noted Time PHQ-9 Depression Total Score: 1 06/06/20 16 9:00 AM CDT documented as of this encounter Care Teams Staff Development Nurse Relationship Specialty Start Date End Date Annalisa Christopher MD [address] [place] [address] PCP - General 07/07/08 documented as of this encounter
--- OUTSIDE RECORDS SUMMARY | 2024-10-06 18:13 | XMS_ITS | Encounter Summary ---
Author Organization [facility] Address [address] [place] [address] Care Team Providers Care Concrete Inspector Name Role Phone Annalisa Christopher MD Primary Care Provider [phone] Reason for Visit * Reason Onset Date Comments Upper Respiratory Symptoms 12/11/2018 Encounter Details Date Type Department Care Team (Late st Contact Info) Description 12/11/2018 Telephone [facility] Primary Care - [address] [place] [address] Annalisa Christopher MD [address] [place] [address] [address] [place] [address] Upper Respiratory Symptoms Social History Tobacco [...] encounter Miscellaneous Notes * Telephone Encounter - Kathleen Harmon - 12/11/2018 4:21 PM CDT Spoke to pt * Telephone Encounter - Annalisa Christopher MD - 12/11/2018 4:19 PM CDT Amox sent Please notify the patient * Telephone Encounter - Emely Cuadra - 12/11/2018 1:02 PM CDT [place], green mucous, pressure in head/ ears, prod cough, sob, no wheezing, no fever, no earache, scratchy throat x mid feb Pt called 11/13 and was given tamiflu because dtr had influenza Pt said she started getting sick then and not going away. Taking zyrtec and flonase GRIFFIN 10/12/18 MK documented in this encounter Plan of Treatment Upcoming Encounters Date Type Department Care Team (Late st Contact Info) Description 04/25/2025 8:20 AM CDT Office Visit [facility] Primary Care - [facility] [address] [facility] [address] [place] [address] Annalisa Christopher MD [address] [place] [address] documented as of this encounter Visit Diagnoses Not on filedocumented in this encounter Additional Health Concerns Assessment Noted Time PHQ-9 Depression Total Score: 1 06/06/20 16 9:00 AM CDT documented as of this encounter Care Teams Concrete Inspector Relationship Specialty Start Date End Date Annalisa Christopher MD [address] [facility] [address] [place] [address] PCP - General 07/07/08 documented as of this encounter
--- OUTSIDE RECORDS SUMMARY | 2024-10-06 18:13 | XMS_ITS | Encounter Summary ---
Author Organization [facility] Address [address] [place] [address] Care Team Providers Care Wetland Scientist Name Role Phone Annalisa Christopher MD Primary Care Provider [phone] Reason for Visit * Reason Comments Med Refill Encounter Details Date Type Department Care Team (Late st Contact Info) Description 2022 Refill [facility] [address] [place] [address] [place] [address] Annalisa Christopher MD [address] [place] [address] [address] [place] [address] Migraine without status migrainosus, not [...] Description 04/25/2025 8:20 AM CDT Office Visit [facility] [address] [place] [address] [address] [place] [address] Annalisa Christopher MD [address] [place] [address] [address] [place] [address] documented as of this encounter Visit Diagnoses Diagnosis Migraine without status migrainosus, not intractable, unspecified migraine type documented in this encounter Care Teams Wetland Scientist Relationship Specialty Start Date End Date Annalisa Christopher MD [address] [facility] [address] [place] [address] PCP - General 07/07/08 documented as of this encounter
--- OUTSIDE RECORDS SUMMARY | 2024-10-06 18:13 | XMS_ITS | Encounter Summary ---
Author Organization [facility] Address [address] [place] [address] Care Team Providers Care Accounting Clerks Supervisor Name Role Phone Annalisa Christopher MD Primary Care Provider [phone] Reason for Visit * Reason Comments Medication Refill Encounter Details Date Type Department Care Team (Late Contact Info) Description 05/30/[address] [place] [address] Annalisa Christopher MD [address] [place] [address] [address] [place] [address] Mild intermittent asthma without complication [...] CDT Office Visit [facility] [address] [facility] [address] [place] [address] Annalisa Christopher MD [address] [place] [address] documented as of this encounter Visit Diagnoses Diagnosis Mild intermittent asthma without complication Unspecified asthma documented in this encounter Additional Health Concerns Assessment Noted Time PHQ-9 Depression Total Score: 1 06/06/20 16 9:00 AM CDT documented as of this encounter Care Teams Accounting Clerks Supervisor Relationship Specialty Start Date End Date Annalisa Christopher MD [address] [place] [address] PCP - General 07/07/08 documented as of this encounter
--- OUTSIDE RECORDS SUMMARY | 2024-10-06 18:13 | XMS_ITS | Encounter Summary ---
Author Organization [facility] Address [address] [place] [address] Care Team Providers Care Fruit Or Nut Farm Worker Name Role Phone Annalisa Christopher MD Primary Care Provider [phone] Reason for Visit * Reason Onset Date Comments Abnormal Imaging Results 07/23/2021 Encounter Details Date Type Department Care Team (Late st Contact Info) Description 07/23/2021 Telephone [facility] - [address] [place] [address] Chloe Hollingsworth NP [address] [facility] [address] [place] [address] Abnormal Imaging Results Social History Tobacco Use Types Packs/Day Years [...] PM CDT documented as of this encounter Miscellaneous Notes * Telephone Encounter - Chloe Hollingsworth NP - 07/23/2021 3:18 PM CDT Spoke with patient regarding kidney stone. Instructed her to strain her urine at this time and let us know when her stone is passed it may need to be sent off for analysis. Instructed her to make sure she is staying hydrated. Let her know that Dr. Christopher had sent out for tramadol and Flomax to help her pass the stone. Also informed her of incidental findings of a hiatal hernia and potential cyst on her liver. Instructed her to follow-up with us if she develops any other abdominal pain. Patient agrees with plan. documented in this encounter Plan of Treatment Upcoming Encounters Date Type Department Care Team (Late st Contact Info) Description 04/25/2025 8:20 AM CDT Office Visit [facility] [address] [facility] [address] [place] [address] Annalisa Christopher MD [address] [facility] [address] [place] [address] documented as of this encounter Visit Diagnoses Not on filedocumented in this encounter Care Teams Fruit Or Nut Farm Worker Relationship Specialty Start Date End Date Annalisa Christopher MD [address] [facility] [address] [place] [address] PCP - General 07/07/08 documented as of this encounter
--- OUTSIDE RECORDS SUMMARY | 2024-10-06 18:13 | XMS_ITS | Encounter Summary ---
Author Organization [facility] Address [address] [facility] Attn: [place] [address] Care Team Providers Care Powderman Name Role Phone Annalisa Christopher MD Primary Care Provider [phone] Encounter Details Date Type Department Care Team (Latest Contact Info) Description 10/22/2020 Travel Social History Tobacco Use Types Packs/Day [...] have Coronavirus / COVID-19? No / Unsure 10/22/2020 9:45 AM REGISTERED ROUTE ASSOCIATE documented as of this encounter Plan of Treatment Upcoming Encounters Date Type Department Care Team (Late st Contact Info) Description 04/25/2025 8:20 AM CDT Office Visit [facility] - [facility] [address] [place] [address] [place] [address] Annalisa Christopher MD [address] [place] [address] [address] [place] [address] documented as of this encounter Visit Diagnoses Not on filedocumented in this encounter Care Teams Powderman Relationship Specialty Start Date End Date Annalisa Christopher MD [address] [facility] [address] [place] [address] PCP - General 07/07/08 documented as of this encounter
--- OUTSIDE RECORDS SUMMARY | 2024-10-06 18:13 | XMS_ITS | Encounter Summary ---
Author Organization [facility] Address [address] [facility] Attn: [place] [address] Care Team Providers Care Chronometer Adjuster Name Role Phone Annalisa Christopher MD Primary Care Provider [phone] Encounter Details Date Type Department Care Team (Latest Contact Info) Description 04/29/2022 Travel Social History Tobacco Use Types Packs/Day [...] Exposure Response Date Recorded In the last 10 days, have yo u been in contact with someone who was confirmed or suspected to have Coronavirus/COVID-19? No / Unsure 04/29/2022 9:14 AM CDT documented as of this encounter Plan of Treatment Upcoming Encounters Date Type Department Care Team (Late st Contact Info) Description 04/25/2025 8:20 AM CDT Office Visit [facility] - [address] [place] [address] Annalisa Christopher MD [address] [place] [address] [address] [place] [address] documented as of this encounter Visit Diagnoses Not on filedocumented in this encounter Care Teams Chronometer Adjuster Relationship Specialty Start Date End Date Annalisa Christopher MD [address] [facility] [address] [place] [address] PCP - General 07/07/08 documented as of this encounter
--- OUTSIDE RECORDS SUMMARY | 2024-10-06 18:13 | XMS_ITS | Encounter Summary ---
Author Organization [facility] Address [address] [place] [address] Care Team Providers Care Readers' Advisory Service Librarian Name Role Phone Annalisa Christopher MD Primary Care Provider [phone] Reason for Visit * Reason Comments Medication Refill Encounter Details Date Type Department Care Team (Late st Contact Info) Description 12/31/2020 Refill [facility] [address] [place] [address] [place] [address] Annalisa Christopher MD [address] [place] [address] [address] [place] [address] Mild intermittent asthma without complication [...] 04/25/2025 8:20 AM CDT Office Visit [facility] [address] [place] [address] [address] [place] [address] Annalisa Christopher MD [address] [place] [address] [address] [place] [address] documented as of this encounter Visit Diagnoses Diagnosis Mild intermittent asthma without complication Unspecified asthma documented in this encounter Care Teams Readers' Advisory Service Librarian Relationship Specialty Start Date End Date Annalisa Christopher MD [address] [facility] [address] [place] [address] PCP - General 07/07/08 documented as of this encounter
--- OUTSIDE RECORDS SUMMARY | 2024-10-06 18:13 | XMS_ITS | Encounter Summary ---
Author Organization [facility] Address [address] [place] [address] Care Team Providers Care Leaf Blender Name Role Phone Annalisa Christopher MD Primary Care Provider [phone] Reason for Referral * Radiology Services (Routine) - Closed Specialty Diagnoses / Procedures Referred By Bairon t Referred To Contact Diagnoses Visit for screening mammogram Procedures MAMMO SCREEN BILAT W OR WO CAD Annalisa Christopher MD [address] [place] [address] Referral ID Status Reason Start Date Expiration Date V isits Requested Visits Authorized [id number] Closed STL CTS 10/12/2018 11/12/2019 1 1 RWRITING OPERATIONS MANAGER * Eval and Treat (Routine) - Closed Specialty Diagnoses / Procedures Referred By Contaviva boone Referred To Contact Otolaryngology Diagnoses Acute recurrent maxillary sinusitis Annalisa Christopher MD [address] [place] [address] Dhruv Brennan MD [address] [facility] [address] [facility] [address] [place] [address] Referral ID Status Reason Start Date Expiration Date V isits Requested Visits Authorized [id number] Closed CRS To Schedule (STL) 10/12/2018 10/12/2019 1 1 RWRITING OPERATIONS MANAGER Reason for Visit * Reason Comments Physical Encounter Details Date Type Department Care Team (Late st Contact Info) Description 10/12/2018 1:45 PM UNDERWRITING OPERATIONS MANAGER Office Visit [facility] Care - [facility] [address] [place] [address] Annalisa Christopher MD [address] [place] [address] Preventative health care (Primary Dx); Allergic rhinitis due to pollen, unspecified seasonality; Mixed hyperlipidemia; Acute recurrent maxillary sinusitis; Visit for screening mammogram Social History Tobacco [...] Sign Reading Time Taken Comments Blood Pressure 106/62 10/12/2018 1:55 PM UNDERWRITING OPERATIONS MANAGER Pulse - - Temperature - - Respiratory Rate - - Oxygen Saturation - - Inhaled Oxygen Concentration - - Weight 88.9 kg (196 lb) 10/12/2018 1:55 PM UNDERWRITING OPERATIONS MANAGER Height 170.2 cm (5' 7 ) 10/12/2018 1:55 PM UNDERWRITING OPERATIONS MANAGER Body Mass Index 30.7 10/12/2018 1:55 PM UNDERWRITING OPERATIONS MANAGER documented in this encounter Progress Notes * Annalisa Christopher MD - 10/12/2018 2:11 PM CST HISTORY OF PRESENT ILLNESS Fabiana Pryor, a 43 y.o. female presents with a Chief Complaint of Physical Subjective HPI Presenting for PE Patient Active Problem List Diagnosis Date Noted ??? Mixed hyperlipidemia 10/12/2018 ??? Allergic rhinitis 08/05/2013 Normal BMI Range: 18 & older: > or = 18.5 and < 25 Body mass index is 30.7 kg/m??. Abnormal high BMI: Patient counseled on lifestyle modifications including weight loss and daily exercise. REVIEW OF SYSTEMS Review of Systems Constitutional: Negative. Negative for chills, fatigue and fever. HENT: Negative. Negative for congestion and sinus [...] for behavioral problems. Objective PHYSICAL EXAM BP 106/62 Ht 5' 7 (1.702 m) Wt 88.9 kg (196 lb) BMI 30.70 kg/m?? Physical Exam Constitutional: She is oriented to person, place, and time. No distress. HENT: Head: Normocephalic and atraumatic. Right Ear: External ear normal. Left Ear: External ear normal. Nose: Mucosal edema and rhinorrhea present. Right sinus exhibits maxillary sinus tenderness. Left sinus exhibits maxillary sinus tenderness. Mouth/Throat: No oropharyngeal exudate. Eyes: Pupils are equal, round, and reactive to light. Conjunctivae and EOM are normal. No scleral icterus. Neck: Normal range of motion. Neck supple. No JVD present. No thyromegaly present. Cardiovascular: Normal rate, regular rhythm, normal heart sounds and intact distal pulses. No carotid bruit Pulmonary/Chest: Effort normal and breath sounds normal. No respiratory distress. She has no wheezes. She has no rales. Abdominal: Soft. Bowel sounds are normal. There is no tenderness. There is no guarding. Lymphadenopathy: She has no cervical adenopathy. Neurological: She is alert and oriented to person, place, and time. Skin: Skin is warm and dry. She is not diaphoretic. Psychiatric: She has a normal mood and affect. Her behavior is normal. Procedures Assessment ASSESSMENT and PLAN: ICD-10-CM ICD-9-CM 1. Preventative health care Z00.00 V70.0 LIPID PANEL COMPREHENSIVE METABOLIC PANEL CBC WITH DIFFERENTIAL TSH VITAMIN D 25 HYDROXY HEMOGLOBIN A1C URINALYSIS WITH REFLEX MICROSCOPIC 2. Allergic rhinitis due to pollen, unspecified seasonality J30.1 477.0 Flonase, claritin 3. Mixed hyperlipidemia E78.2 272.2 The patient is advised to follow a low fat, low cholesterol diet. 4. Acute recurrent maxillary sinusitis J01.01 461.0 doxycycline hyclate (VIBRAMYCIN) 100 mg capsule AMB REFERRAL TO ENT RWRITING OPERATIONS MANAGER documented in this encounter Plan of Treatment Upcoming Encounters Date Type Department Care Team (Late st Contact Info) Description 04/25/2025 8:20 AM CDT Office Visit [facility] Primary Care - [facility] [address] [place] [address] Annalisa Christopher MD [address] [place] [address] Scheduled Referrals Name Type Priority Associated Diagnoses Orde r Schedule AMB REFERRAL TO ENT Outpatient Referral Routine Acute recurrent maxillary sinusitis Ordered: 10/12/2018 documented as of this encounter Results * MAMMO SCREEN BILAT W OR WO CAD (03/29/2019) Anatomical Region Laterality Modality Breast Bilateral Other Annalisa Christopher MD MAMMO ORDERABLES * (ABNORMAL) URINALYSIS WITH REFLEX MICROSCOPIC (10/31/2018 10:52 AM UNDERWRITING OPERATIONS MANAGER) COLOR UA Yellow Pale to Dark Yellow 10/31/2018 1:54 PM UNDERWRITING OPERATIONS MANAGER [facility] LABORATORY SERVICES - . [facility] CLARITY UA Clear Clear 10/31/2018 1:54 PM UNDERWRITING OPERATIONS MANAGER [facility] LABORATORY SERVICES - . [facility] SPECIFIC GRAVITY UA 1.013 1.003 - 1.035 10/31/2018 1:54 PM UNDERWRITING OPERATIONS MANAGER [facility] LABORATORY SERVICES - . [facility] PH UA 6.0 5.0 - 8.0 10/31/2018 1:54 PM UNDERWRITING OPERATIONS MANAGER [facility] LABORATORY SERVICES - . [facility] LEUKOCYTE ESTERASE UA Negative Negative 10/31/2018 1:54 PM UNDERWRITING OPERATIONS MANAGER [facility] LABORATORY SERVICES - [facility] NITRITE UA Negative Negative 10/31/2018 1:54 PM UNDERWRITING OPERATIONS MANAGER [facility] LAB[facility]ATORY SERVICES - [facility] PROTEIN UA Negative Negative 10/31/2018 1:54 PM UNDERWRITING OPERATIONS MANAGER [facility] LABORATORY SERVICES - . [facility] GLUCOSE UA Negative Negative 10/31/2018 1:54 PM UNDERWRITING OPERATIONS MANAGER [facility] LABORATORY SERVICES - . [facility] KETONES UA Negative Negative 10/31/2018 1:54 PM [facility] LABORATORY [facility] UROBILINOGEN UA Normal <2.0 mg/dL 9 1:54 PM [facility] LABORATORY [facility] BILIRUBIN UA Negative Negative 10/31/2018 1:54 PM [facility]ATORY [facility] BLOOD UA 1+(A) Negative 10/31/2018 1:54 PM [facility] LABORATORY [facility] WBC UA 0-2 0 - 2 /hpf 10/31/2018 1:54 PM [facility] LABORATORY [facility] RBC UA 0-2 0 - 2 /hpf 10/31/2018 1:54 PM [facility] LABORATORY [facility] BACTERIA UA Negative Negative /hpf 10/31/2018 1:54 PM [facility] LABORATORY [facility] Urine URINE SPECIMEN OBTAINED BY CLEAN CATCH PROCEDURE / Unknown Collection / Unknown 10/31/2018 10:52 AM UNDERWRITING OPERATIONS MANAGER 10/31/2018 11:20 AM UNDERWRITING OPERATIONS MANAGER Annalisa Chrisotpher MD URINE ORDERABLES [facility] [employer] [facility]# [id number] [address] [place] [address] * HEMOGLOBIN A1C (10/31/2018 10:52 AM UNDERWRITING OPERATIONS MANAGER) HEMOGLOBIN A1C 5.4 <5.7 % 10/31/2018 5:13 PM [facility] [employer] [facility] EST. AVG GLUCOSE, A1C 108 mg/dL 10/31/2018 5:13 PM [facility] [facility] Blood Venipuncture / Unknown 10/31/2018 10:52 AM UNDERWRITING OPERATIONS MANAGER 10/31/2018 10:52 AM UNDERWRITING OPERATIONS MANAGER Narrative [facility] LABORATORY [facility] - 10/31/2018 5:13 PM UNDERWRITING OPERATIONS MANAGER HGB A1C INTERPRETATION NORMAL: ? <5.7% PRE-DIABETES: 5.7 - 6.4% DIABETES: ? 6.5% OR GREATER Annalisa Christopher MD CHEMISTRY ORDERABLES [facility] [employer] [facility]# [id number] [address] [place] [address] * VITAMIN D 25 HYDROXY (10/31/2018 10:52 AM UNDERWRITING OPERATIONS MANAGER) Pathologist [facility] VITAMIN D TOTAL (25OH) 56 30 - 100 ng/mL 10/31/2018 5:02 PM UNDERWRITING OPERATIONS MANAGER [facility] [employer] [facility] Blood Venipuncture / Unknown 10/31/2018 10:52 AM UNDERWRITING OPERATIONS MANAGER 10/31/2018 10:52 AM UNDERWRITING OPERATIONS MANAGER Narrative [facility] [employer] [facility] - 10/31/2018 5:02 PM UNDERWRITING OPERATIONS MANAGER Interpretive Data Chart: Deficient: 0 - 20 ng/mL Insufficient: 21 - 29 ng/mL Sufficient: 30 - 100 ng/mL Increased Risk of Hypercalciuria: >100 ng/mL Toxic: >150 ng/mL Annalisa Christopher MD CHEMISTRY ORDERABLES Performing Organization Address City/[facility]/ZIP Co de Phone Number [facility] [employer] [facility]# [id number] [address] [place] [address] * TSH (10/31/2018 10:52 AM UNDERWRITING OPERATIONS MANAGER) [facility] TSH 0.68 0.27 - 4.20 uIU/mL 10/31/2018 3:47 PM [facility] [employer] [facility] Blood Venipuncture / Unknown 10/31/2018 10:52 AM UNDERWRITING OPERATIONS MANAGER 10/31/2018 10:52 AM UNDERWRITING OPERATIONS MANAGER Annalisa Christopher MD CHEMISTRY ORDERABLES Performing Organization Address City/[facility]/ZIP Co de Phone Number [facility] [employer] [facility]# [id number] [address] [place] [address] * (ABNORMAL) CBC WITH DIFFERENTIAL (10/31/2018 10:52 AM UNDERWRITING OPERATIONS MANAGER) [facility] WBC 5.0 4.0 - 9.8 K/uL 10/31/2018 1:50 PM UNDERWRITING OPERATIONS MANAGER [facility] RBC 4.90 3.90 - 4.90 M/uL 10/31/2018 1:50 PM UNDERWRITING OPERATIONS MANAGER [facility] SERVICES - . [facility] HEMOGLOBIN 14.4 11.8 - 14.8 g/dL 10/31/2018 1:50 PM UNDERWRITING OPERATIONS MANAGER [facility] - [facility] HEMATOCRIT 44.5(H) 35.5 - 44.0 % 10/31/2018 1:50 PM UNDERWRITING OPERATIONS MANAGER [facility] - [facility] MCV 90.8 82.0 - 99.0 fL 10/31/2018 1:50 PM UNDERWRITING OPERATIONS MANAGER [facility] - [facility] MCH 29.4 27.2 - 32.6 pg 10/31/2018 1:50 PM UNDERWRITING OPERATIONS MANAGER [facility] - [facility] MCHC 32.4 31.5 - 35.5 g/dL 10/31/2018 1:50 PM UNDERWRITING OPERATIONS MANAGER [facility] LABORATORY SERVICES - [facility] RDW 12.3 11.5 - 14.5 % 10/31/2018 1:50 PM UNDERWRITING OPERATIONS MANAGER [facility] LABORATORY SERVICES - [facility] RDW-STDEV 41.3 37.1 - 48.7 fL 10/31/2018 1:50 PM UNDERWRITING OPERATIONS MANAGER [facility] LABORATORY SERVICES - [facility] PLATELETS 275 140 - 350 K/uL 10/31/2018 1:50 PM UNDERWRITING OPERATIONS MANAGER [facility] LABORATORY SERVICES - [facility] MPV 9.6 9.3 - 12.4 fL 10/31/2018 1:50 PM UNDERWRITING OPERATIONS MANAGER [facility] LABORATORY SERVICES - . [facility] NEUTROPHILS 51 % 10/31/2018 1:50 PM UNDERWRITING OPERATIONS MANAGER [facility] LABORATORY SERVICES - . [facility] LYMPHOCYTES 38 % 10/31/2018 1:50 PM UNDERWRITING OPERATIONS MANAGER [facility] - [facility] MONOCYTES 8 % 10/31/2018 1:50 PM UNDERWRITING OPERATIONS MANAGER [facility] - [facility] EOSINOPHILS 2 % 10/31/2018 1:50 PM UNDERWRITING OPERATIONS MANAGER [facility] - [facility] BASOPHILS 1 % 10/31/2018 1:50 PM UNDERWRITING OPERATIONS MANAGER [facility] - . [facility] IMMATURE GRANULOCYTES 0 % 10/31/2018 1:50 PM UNDERWRITING OPERATIONS MANAGER [facility] - . [facility] NEUTROPHIL ABSOLUTE 2.55 1.90 - 7.00 K/uL 10/31/2018 1:50 PM UNDERWRITING OPERATIONS MANAGER [facility] LABORATORY SERVICES - . [facility] LYMPHOCYTE ABSOLUTE 1.92 0.70 - 4.50 K/uL 10/31/2018 1:50 PM [facility] LABORATORY SERVICES - [facility] MONOCYTE ABSOLUTE 0.42 0.10 - 1.30 K/uL 10/31/2018 1:50 PM UNDERWRITING OPERATIONS MANAGER [facility] LABORATORY SERVICES - [facility] EOSINOPHIL ABSOLUTE 0.09 0.00 - 0.70 K/uL 10/31/2018 1:50 PM UNDERWRITING OPERATIONS MANAGER [facility] LABORATORY SERVICES - [facility] BASOPHILS ABSOLUTE 0.03 0.00 - 0.20 K/uL 10/31/2018 1:50 PM UNDERWRITING OPERATIONS MANAGER [facility] LABORATORY SERVICES - [facility] IMMATURE GRANULOCYTES ABSOLUTE 0.01 0.00 - 0.03 K/uL 10/31/2018 1:50 PM [facility] LAB[facility]ATORY SERVICES - [facility] Blood Venipuncture / Unknown 10/31/2018 10:52 AM UNDERWRITING OPERATIONS MANAGER 10/31/2018 10:52 AM UNDERWRITING OPERATIONS MANAGER Annalisa Christopher MD HEMATOLOGY ORDERABLE S [facility] LABORATORY SERVICES - [facility]# [id number] [address] [place] [address] * (ABNORMAL) COMPREHENSIVE METABOLIC PANEL (10/31/2018 10:52 AM UNDERWRITING OPERATIONS MANAGER) SODIUM 138 136 - 145 mmol/L 10/31/2018 3:42 PM [facility] LABORATORY SERVICES - . [facility] POTASSIUM 4.3 3.5 - 5.0 mmol/L 10/31/2018 3:42 PM UNDERWRITING OPERATIONS MANAGER [facility] LABORATORY SERVICES - . [facility] CHLORIDE 103 98 - 107 mmol/L 10/31/2018 3:42 PM UNDERWRITING OPERATIONS MANAGER [facility] LABORATORY SERVICES - [facility] CO2 23 22 - 29 mmol/L 10/31/2018 3:42 PM UNDERWRITING OPERATIONS MANAGER [facility] LABORATORY SERVICES - [facility] CALCIUM 9.6 8.6 - 10.2 mg/dL 10/31/2018 3:42 PM UNDERWRITING OPERATIONS MANAGER [facility] LABORATORY SERVICES - [facility] BUN 10 6 - 20 mg/dL 10/31/2018 3:42 PM UNDERWRITING OPERATIONS MANAGER [facility] LABORATORY SERVICES - [facility] CREATININE 0.73 0.51 - 0.95 mg/dL 10/31/2018 3:42 PM UNDERWRITING OPERATIONS MANAGER [facility] LABORATORY SERVICES - . [facility] GLUCOSE 93 74 - 99 mg/dL 10/31/2018 3:42 PM [facility] TOTAL PROTEIN 6.9 6.7 - 8.6 g/dL 10/31/2018 3:42 PM [facility] - . [facility] ALBUMIN 4.3 3.5 - 5.2 g/dL 10/31/2018 3:42 PM [facility] BILIRUBIN TOTAL 0.4 0.3 - 1.2 mg/dL 10/31/2018 3:42 PM [facility] ALKALINE PHOSPHATASE 95 35 - 104 U/L 10/31/2018 3:42 PM [facility] AST 36(H) <33 U/L 10/31/2018 3:42 PM [facility] ALT 63(H) <34 U/L 10/31/2018 3:42 PM [facility] GFR >60 >=60 mL/min/1.7 3 sq meter 10/31/2018 3:42 PM [facility] [employer] [facility] Comment: eGFR has not been validated [...] GFR, >60 >=60 mL/min/1.7 3 sq meter 10/31/2018 3:42 PM [facility] [employer] [facility] ANION GAP 12 8 - 16 mmol/L 10/31/2018 3:42 PM [facility] Blood Venipuncture / Unknown 10/31/2018 10:52 AM UNDERWRITING OPERATIONS MANAGER 10/31/2018 10:52 AM [facility] LABORATORY [facility] - 10/31/2018 3:42 PM [facility] Samples containing indocyanine green cause interferences on Total and/or Direct Bilirubin and must not be measured. Annalisa Christopher MD CHEMISTRY ORDERABLES Performing Organization Address City/[facility]/ZIP Co de Phone Number [facility] CLIA# [id number] [address] [place] [address] * (ABNORMAL) LIPID PANEL (10/31/2018 10:52 AM UNDERWRITING OPERATIONS MANAGER) CHOLESTEROL 208(H) <200 mg/dL 10/31/2018 3:42 PM [facility] [employer] [facility] TRIGLYCERIDE 97 <150 mg/dL 10/31/2018 3:42 PM [facility] [employer] [facility] HDL 49 40 - 59 mg/dL 10/31/2018 3:42 PM [facility] [employer] [facility]. [facility] LDL CALCULATED 140(H) <100 mg/dL 10/31/2018 3:42 PM [facility] [employer] [facility] NON-HDL CHOLESTEROL 159(H) <130 mg/dL 10/31/2018 3:42 PM [facility] [employer] [facility] Blood Venipuncture / Unknown 10/31/2018 10:52 AM UNDERWRITING OPERATIONS MANAGER 10/31/2018 10:52 AM UNDERWRITING OPERATIONS MANAGER [facility] [employer] LABORATORY [facility] - 10/31/2018 3:42 PM UNDERWRITING OPERATIONS MANAGER TOTAL CHOLESTEROL ??mg/dL ??Desirable <200 ??Borderline high 200-239 ??High >=240 TRIGLYCERIDES ??mg/dL ??Normal <150 ??Borderline high 150-199 ??High 200-499 ??Very high >=500 HDL CHOLESTEROL ??mg/dL ??Low <40 ??Normal 40-59 ??Desirable >=60 NON HDL CHOLESTEROL mg/dL ??Optimal <130 ??Near Optimal 130-159 ??Borderline High 160-189 ??Very High >=190 Calculated LDL mg/dL ??Optimal <100 ??Near Optimal 100-129 ??Borderline High 130-159 ??High 160-189 ??Very High >=190 ATPIII Guidelines Reference Ranges for Lipid Panels (NCEP/AMA) Annalisa Christopher MD CHEMISTRY ORDERABLES [facility] [employer] [facility] CLIA# [id number] [address] [place] [address] documented in this encounter Visit Diagnoses Diagnosis Preventative health care- Primary Routine general medical examination at a health care facility Allergic rhinitis due to pollen, unspecified seasonality Mixed hyperlipidemia Acute recurrent maxillary sinusitis Acute maxillary sinusitis Visit for screening mammogram Other screening mammogram documented in this encounter Additional Health Concerns Assessment Noted Time PHQ-9 Depression Total Score: 1 06/06/20 16 9:00 AM CDT documented as of this encounter Care Teams Leaf Blender Relationship Specialty Start Date End Date Annalisa Christopher MD [address] [place] [address] PCP - General 07/07/08 documented as of this encounter
--- OUTSIDE RECORDS SUMMARY | 2024-10-06 18:13 | XMS_ITS | Encounter Summary ---
Author Organization [facility] Address [address] [facility] Attn: [place] [address] Care Team Providers Care Horse Riding Coach Or Instructor Name Role Phone Annalisa Christopher MD Primary Care Provider [phone] Encounter Details Date Type Department Care Team (Latest Contact Info) Description 07/23/2021 Travel Social History Tobacco Use Types Packs/Day [...] 04/25/2025 8:20 AM CDT Office Visit [facility] [address] [place] [address] [address] [place] [address] Annalisa Christopher MD [address] [place] [address] Rd [address] [place] [address] documented as of this encounter Visit Diagnoses Not on filedocumented in this encounter Care Teams Horse Riding Coach Or Instructor Relationship Specialty Start Date End Date Annalisa Christopher MD [address] [facility] [address] [place] [address] PCP - General 07/07/08 documented as of this encounter
--- OUTSIDE RECORDS SUMMARY | 2024-10-06 18:13 | XMS_ITS | Encounter Summary ---
Author Organization [facility] Address [address] [place] [address] Care Team Providers Care Instructional Design Technologist Name Role Phone Annalisa Christopher MD Primary Care Provider [phone] Reason for Visit * Reason Comments Establish Care Encounter Details Date Type Department Care Team (Latest Contact Info) Description 02/17/2021 9:30 AM CDT Office Visit [facility] [place] [facility] [address] [place] [address] Heide Shannon MD [address] [place] [address] Screening for colon cancer (Primary Dx) Social History Tobacco Use Types [...] AM CDT documented as of this encounter Last Filed Vital Signs Vital Sign Reading Time Taken Comments Blood Pressure 133/86 02/17/2021 9:13 AM CDT Pulse 91 02/17/2021 9:13 AM CDT Temperature - - Respiratory Rate - - Oxygen Saturation - - Inhaled Oxygen Concentration - - Weight 88.2 kg (194 lb 6.4 oz) 02/17/2021 9:13 A M CDT Height 170.2 cm (5' 7 ) 02/17/2021 9:13 AM CDT Body Mass Index 30.45 02/17/2021 9:13 AM CDT documented in this encounter Progress Notes * Heide Shannon MD - 02/24/2021 8:12 AM CDT HISTORY OF PRESENT ILLNESS Fabiana Pryor, a 45 y.o. female presents with a Chief Complaint of Establish Care Subjective HPI Lemaria guadalupe is being evaluated for colon cancer screening. Denies prior colonoscopy. Denies any active symptoms. Mom had colon polyps after age 80. Denies any family history of colon cancer. Past Medical History: Diagnosis Date ??? Allergic rhinitis 08/05/2013 ??? Extrinsic asthma, unspecified 1978 ??? Family history of allergic disorder succinylcholine ??? Migraine 10/07/2010 ??? Mixed hyperlipidemia 10/12/2018 ??? PTSD (post-traumatic stress disorder) Hx of stillbirth at age 25, patient has 2 living children 7 pregnancies ??? Temporomandibular joint disorders, unspecified occasional jaw pain/ rare popping Past Surgical History: Procedure Laterality Date ??? HX BREAST AUGMENTATION 2006 [facility] ??? MO DELIVERY ONLY 2003 ??? [place] DELIVERY ONLY 08/31/2011 SECTION performed by Douglas Jeffrey MD at [facility] L[facility] ??? [place] DILATION/CURETTAGE,DIAGNOSTIC 09/08/2010 DILATATION AND CURETTAGE SUCTION performed by DOUGLAS JEFFREY at [facility] OR MAIN Allergies Allergen Reactions ??? Sulfa (Sulfonamide Antibiotics) Hives Current Outpatient Medications: ??? Breo Ellipta 100-25 mcg/dose Disk with Device, INHALE 1 PUFF BY MOUTH EVERY DAY, Disp: 60 Each,Rfl: 1 ??? escitalopram oxalate (LEXAPRO) 10 mg tablet, TAKE 1 TABLET BY MOUTH EVERY DAY, Disp: 30 Tablet,Rfl: 4 ??? promethazine (PHENERGAN) 25 mg tablet, Take 1 Tablet (25 mg) by mouth every 6 hours as needed for Nausea/Emesis., Disp: 30 Tablet, Rfl: 0 ??? albuterol HFA 90 mcg inhaler, TAKE 2 PUFFS EVERY 6 HOURS NEEDED FOR SHORTNESS OF BREATH.., Disp: 8.5 Gram, Rfl: 11 ??? Peak Flow Meter Device, Dx asthma., Disp: 1 Device, Rfl: 0 ??? fluticasone (FLONASE) 50 mcg/spray [place], Suspension, Administer 2 Sprays in each nostril daily., Disp: , Rfl: ??? cetirizine-pseudoephedrine sr 12 hour (ZyrTEC-D) 5-120 mg tablet, Take 1 Tablet by mouth 2 times daily., Disp: 60 Tablet, Rfl: 3 ??? diazePAM (VALIUM) 5 mg tablet, Take 1 Tablet (5 mg) by mouth 1 time daily as needed for Anxiety., Disp: 20 Tablet, Rfl: 0 ??? Levonorgestrel (MIRENA) 20 mcg/24 hr Intrauterine IUD, by Intrauterine route., Disp: , Rfl: Family History Problem Relation Name Age of Onset ??? Hypertension Father ??? Heart Disease Father [place] 60's ??? Stroke Father ??? Diabetes Mother ??? Heart Disease Mother ??? Other Brother Crohn's ??? Healthy Daughter Jeanette ??? Breast Cancer Neg Hx ??? Ovarian Cancer Neg Hx ??? Colon Cancer Neg Hx ??? Celiac Disease Neg Hx ??? Inflammatory Bowel Disease Neg Hx ??? Crohn's Disease Neg Hx ??? Ulcerative Colitis Neg Hx Social History Socioeconomic History ??? Marital status: Spouse name: Not on file ??? Number of children: Not on file ??? Years of education: Not on file ??? Highest education level: Not on file Occupational History Employer: [employer] Tobacco Use ??? Smoking status: Former Smoker Quit date: 07/09/2010 Years since quittin.6 ??? Smokeless tobacco: Never Used Substance and Sexual Activity ??? Alcohol use: No ??? Drug use: No ??? Sexual activity: Yes Partners: Male Comment: LMP 06/05/10 Other Topics Concern ??? Not on file Social History Narrative ??? Not on file Social Determinants of Health Financial Resource Strain: ??? Difficulty of Paying Living Expenses: Food Insecurity: ??? Worried About Running Out of Food in the Last Year: ??? Ran Out of Food in the Last Year: Transportation Needs: ??? Lack of Transportation (Medical): ??? Lack of Transportation (Non-Medical): Physical Activity: ??? Days of Exercise per Week: ??? Minutes of Exercise per Session: Stress: ??? Feeling of Stress : Social Connections: ??? Frequency of Communication with Friends and Family: ??? Frequency of Social Gatherings with Friends and Family: ??? Attends Cheondoism Services: ??? Active Member of Clubs or Organizations: ??? Attends Club or Organization Meetings: ??? Marital Status: Intimate Partner Violence: ??? Fear of Current or Ex-Partner: ??? Emotionally Abused: ??? Physically Abused: ??? Sexually Abused: REVIEW OF SYSTEMS Review of Systems Constitutional: Negative for appetite change, chills, diaphoresis, fatigue, fever and unexpected weight change. HENT: Negative for hearing loss and trouble swallowing. Eyes: Negative for visual disturbance. Respiratory: Negative for cough and shortness of breath. Cardiovascular: Negative for chest pain, palpitations and leg swelling. Gastrointestinal: Negative for abdominal pain, blood in stool, constipation, diarrhea, nausea, rectal pain and vomiting. Genitourinary: Negative for dysuria and hematuria. Musculoskeletal: Negative for arthralgias and myalgias. Skin: Negative for rash. Neurological: Negative for dizziness and weakness. Hematological: Does not bruise/bleed easily. Psychiatric/Behavioral: Negative for dysphoric mood. The patient is not nervous/anxious. Objective PHYSICAL EXAM BP 133/86 (BP Location: Left arm, Patient Position (BP): Sitting, BP Cuff Size: Adult) Pulse 91 Ht 5' 7 (1.702 m) Wt 88.2 kg (194 lb 6.4 oz) BMI 30.45 kg/m?? Physical Exam Constitutional: General: She is not in acute distress. Appearance: Normal appearance. She is well-developed. She is not diaphoretic. HENT: Head: Normocephalic. Mouth/Throat: Mouth: Mucous membranes are not cyanotic. No oral lesions. Eyes: General: Lids are normal. No scleral icterus. Right eye: No discharge. Left eye: No discharge. Conjunctiva/sclera: Conjunctivae normal. Neck: Thyroid: No thyroid mass or thyromegaly. Trachea: Trachea normal. Cardiovascular: Heart sounds: Normal heart sounds. Comments: No pedal edema Pulmonary: Effort: Pulmonary effort is normal. Breath sounds: Normal breath sounds. Abdominal: General: Bowel sounds are normal. There is no abdominal bruit. Palpations: Abdomen is soft. Abdomen is not rigid. There is no shifting dullness or mass. Tenderness: There is no abdominal tenderness. There is no rebound. Hernia: No hernia is present. Musculoskeletal: Cervical back: Neck supple. No edema or erythema. Comments: No clubbing, petechiae or cyanosis in the nails or digits. Gait appears grossly normal for age. Lymphadenopathy: Cervical: No cervical adenopathy. Upper Body: Right upper body: No supraclavicular adenopathy. Left upper body: No supraclavicular adenopathy. Skin: General: Skin is warm. Findings: No abrasion, bruising, ecchymosis, erythema, lesion or rash. Nails: There is no clubbing. Neurological: Mental Status: She is alert and oriented to person, place, and time. Gait: Gait normal. Psychiatric: Speech: Speech normal. Behavior: Behavior normal. Judgment: Judgment normal. Reviewed available lab data and imaging studies. ASSESSMENT and PLAN: ICD-10-CM ICD-9-CM 1. Screening for colon cancer Z12.11 V76.51 Discussed with Fabiana about various possible options for colon cancer screening. Schedule screening colonoscopy. TOBACCO COUNSELING She is not a tobacco user. On the day of the visit, I spent 15 minutes providing care to this patient including Preparing to see the patient, Obtaining and/or reviewing separately obtained history, Performing a medically appropriate examination and/or evaluation, Counseling and educating the patient/family/caregiver, Ordering medications, tests or procedures and Documenting clinical information in the medical record. documented in this encounter Plan of Treatment Upcoming Encounters Date Type Department Care Team (Late st Contact Info) Description 04/25/2025 8:20 AM CDT Office Visit [facility] Care - [facility] [address] [place] [address] [address] [place] [address] Annalisa Christopher MD [address] [place] [address] documented as of this encounter Visit Diagnoses Diagnosis Screening for colon cancer- Primary Special screening for malignant neoplasms, colon documented in this encounter Care Teams Instructional Design Technologist Relationship Specialty Start Date End Date Annalisa Christopher MD [address] [place] [address] PCP - General 07/07/08 documented as of this encounter
--- OUTSIDE RECORDS SUMMARY | 2024-10-06 18:13 | XMS_ITS | Encounter Summary ---
Author Organization [facility] Address [address] [place] [address] Care Team Providers Care Admissions Nurse Name Role Phone Annalisa Christopher MD Primary Care Provider [phone] Reason for Visit * Reason Onset Date Comments scratchy throat 09/03/2021 Encounter Details Date Type Department Care Team (Late st Contact Info) Description 09/03/2021 Telephone [facility] Primary Care - [address] [place] [address] Annalisa Christopher MD [address] [place] [address] [place] [address] scratchy throat Social History Tobacco Use Types Packs/Day Years [...] encounter Miscellaneous Notes * Telephone Encounter - Skylar Leonardo - 09/03/2021 3:23 PM CST Spoke to pt ER OPERATOR * Telephone Encounter - Annalisa Christopher MD - 09/03/2021 3:21 PM CST Rx sent Please inform patient ER OPERATOR * Telephone Encounter - Shelly Vidal - 09/03/2021 1:47 PM CST Pt dtr was dx with strep throat 2 days ago They have been sharing cups all week Pt is having a scratchy throat and req abx ER OPERATOR documented in this encounter Plan of Treatment Upcoming Encounters Date Type Department Care Team (Late st Contact Info) Description 04/25/2025 8:20 AM CDT Office Visit [facility] Primary Care - [facility] [address] [facility] [address] [place] [phone] Annalisa Christopher MD [address] [facility] [place] [address] documented as of this encounter Visit Diagnoses Not on filedocumented in this encounter Care Teams Admissions Nurse Relationship Specialty Start Date End Date Annalisa Christopher MD [address] [facility] [address] [place] [address] PCP - General 07/07/08 documented as of this encounter
--- OUTSIDE RECORDS SUMMARY | 2024-10-06 18:13 | XMS_ITS | Encounter Summary ---
Author Organization [facility] Address [address] [place] [address] Care Team Providers Care Refractive Surgeon Name Role Phone Annalisa Christopher MD Primary Care Provider [phone] Reason for Visit * Reason Comments Medication Refill Encounter Details Date Type Department Care Team (Late Contact Info) Description 10/31/[address] [place] [address] Annalisa Christopher MD [address] [place] [address] [address] [place] [address] Mild intermittent asthma without complication [...] COVID-19? No / Unsure 10/22/2020 9:45 AM BEACH LIFEGUARD documented as of this encounter Plan of Treatment Upcoming Encounters Date Type Department Care Team (Late st Contact Info) Description 04/25/2025 8:20 AM CDT Office Visit [address] [place] [address] Annalisa Christopher MD [address] [place] [address] documented as of this encounter Visit Diagnoses Diagnosis Mild intermittent asthma without complication Unspecified asthma documented in this encounter Care Teams Refractive Surgeon Relationship Specialty Start Date End Date Annalisa Christopher MD [address] [place] [address] PCP - General 07/07/08 documented as of this encounter
--- OUTSIDE RECORDS SUMMARY | 2024-10-06 18:13 | XMS_ITS | Encounter Summary ---
Author Organization [facility] Address [address] [place] [address] Care Team Providers Care Load Blocker Name Role Phone Annalisa Christopher MD Primary Care Provider [phone] Encounter Details Date Type Department Care Team (Late st Contact Info) Description 07/23/2021 Orders Only [address] [place] [address] Annalisa Christopher MD [address] [place] [address] [address] [place] [address] Nephrolithiasis (Primary Dx) Social History Tobacco Use Types [...] Description 04/25/2025 8:20 AM CDT Office Visit [address] [place] [address] Annalisa Christopher MD [address] [place] [phone] documented as of this encounter Visit Diagnoses Diagnosis Nephrolithiasis- Primary Calculus of kidney documented in this encounter Care Teams Load Blocker Relationship Specialty Start Date End Date Annalisa Christopher MD [address] [place] [address] PCP - General 07/07/08 documented as of this encounter
--- OUTSIDE RECORDS SUMMARY | 2024-10-06 18:13 | XMS_ITS | Encounter Summary ---
Author Organization [facility] Address [address] [place] [address] Care Team Providers Care Academic Adviser Name Role Phone Annalisa Christopher MD Primary Care Provider [phone] Encounter Details Date Type Department Care Team (Late st Contact Info) Description 10/16/2017 Abstract [facility] - [address] [place] [address] Annalisa Christopher MD [address] [place] [address] [address] [place] [address] Social History Tobacco Use Types [...] Description 04/25/2025 8:20 AM CDT Office Visit [facility] [address] [place] [address] [address] [place] [address] Annalisa Christopher MD [address] [place] [address] [address] [place] [address] documented as of this encounter Visit Diagnoses Not on filedocumented in this encounter Additional Health Concerns Assessment Noted Time PHQ-9 Depression Total Score: 1 06/06/20 16 9:00 AM CDT documented as of this encounter Care Teams Academic Adviser Relationship Specialty Start Date End Date Annalisa Christopher MD [address] [place] [address] PCP - General 07/07/08 documented as of this encounter
--- OUTSIDE RECORDS SUMMARY | 2024-10-06 18:13 | XMS_ITS | Encounter Summary ---
Author Organization [facility] Address [address] [place] [address] Care Team Providers Care Belt Line Feeder Name Role Phone Annalisa Christopher MD Primary Care Provider [phone] Reason for Visit * Reason Comments Asthma Encounter Details Date Type Department Care Team (Late st Contact Info) Description 03/29/2019 10:15 AM CDT Office Visit [facility] Primary Care - [address] [place] [address] Annalisa Christopher MD [address] [place] [address] [address] [place] [address] Mild intermittent asthma without complication [...] Sign Reading Time Taken Comments Blood Pressure 110/70 03/29/2019 10:07 AM CDT Pulse 84 03/29/2019 10:07 AM CDT Temperature - - Respiratory Rate - - Oxygen Saturation 99% 03/29/2019 10:07 AM CDT Inhaled Oxygen Concentration - - Weight 90.3 kg (199 lb) 03/29/2019 10:07 AM CDT Height 170.2 cm (5' 7 ) 03/29/2019 10:07 AM CDT Body Mass Index 31.17 03/29/2019 10:07 AM CDT documented in this encounter Progress Notes * Annalisa Christopher MD - 03/29/2019 10:26 AM CDT HISTORY OF PRESENT ILLNESS Fabiana Pryor, a 43 y.o. female presents with a Chief Complaint of Asthma Subjective HPI Fabiana Pryor is a 43 y.o. female presenting with Asthma flare up [place] like has had heart palpitations last couple of days. Is in center of chest No pain, x 2days . No fever , no CP REVIEW OF SYSTEMS Review of Systems Constitutional: Negative. Negative for chills and fatigue. HENT: Negative. Negative for congestion and sinus pressure. Eyes: Negative. Negative for redness and visual disturbance. Respiratory: Positive for wheezing. Negative for cough and shortness of breath. Cardiovascular: Positive for palpitations. Negative for chest pain and leg swelling. Gastrointestinal: Negative. Negative for abdominal pain, constipation, nausea and vomiting. Endocrine: Negative. Negative for polydipsia and polyphagia. Genitourinary: Negative. Negative for dysuria and urgency. Musculoskeletal: Negative. Negative for arthralgias and joint swelling. Neurological: Negative. Negative for dizziness and numbness. Psychiatric/Behavioral: Negative. Negative for behavioral problems. Objective PHYSICAL EXAM BP 110/70 Pulse 84 Ht 5' 7 (1.702 m) Wt 90.3 kg (199 lb) SpO2 99% BMI 31.17 kg/m?? Physical Exam Constitutional: She is oriented to person, place, and time. No distress. HENT: Head: Normocephalic and atraumatic. Right Ear: External ear normal. Left Ear: External ear normal. Mouth/Throat: No oropharyngeal exudate. Eyes: Pupils are equal, round, and reactive to light. Conjunctivae and EOM are normal. Neck: Normal range of motion. Neck supple. No thyromegaly present. Cardiovascular: Normal rate, regular rhythm, normal heart sounds and intact distal pulses. No carotid bruit Pulmonary/Chest: Effort normal and breath sounds normal. She has no wheezes. She has no [...] Assessment ASSESSMENT and PLAN: ICD-10-CM ICD-9-CM 1. Mild intermittent asthma without complication J45.20 493.90 Cetirizine (ZyrTEC) 10 mg Capsule albuterol HFA 90 mcg inhaler fluticasone furoate-vilanterol (BREO ELLIPTA) 100-25 mcg/dose Disk with Device Peak Flow Meter Device Advised to call back directly if there are further questions, or if these symptoms fail to improve as anticipated or worsen. documented in this encounter Plan of Treatment Upcoming Encounters Date Type Department Care Team (Late st Contact Info) Description 04/25/2025 8:20 AM CDT Office Visit [facility] Primary Care - [address] [place] [phone] Annalisa Christopher MD [address] [place] [address] [place] [phone] documented as of this encounter Visit Diagnoses Diagnosis Mild intermittent asthma without complication Unspecified asthma documented in this encounter Additional Health Concerns Assessment Noted Time PHQ-9 Depression Total Score: 1 06/06/20 16 9:00 AM CDT documented as of this encounter Care Teams Belt Line Feeder Relationship Specialty Start Date End Date Annalisa Christopher MD [address] [place] [address] [address] [place] [phone] PCP - General 07/07/08 documented as of this encounter
--- OUTSIDE RECORDS SUMMARY | 2024-10-06 18:13 | XMS_ITS | Encounter Summary ---
Author Organization [facility] Address [address] [place] [address] Care Team Providers Care Copywriter Name Role Phone Annalisa Christopher MD Primary Care Provider [phone] Reason for Visit * Reason Onset Date Comments Sinus Infection 02/22/2019 Encounter Details Date Type Department Care Team (Late st Contact Info) Description 02/22/2019 Telephone [facility] Primary Care - [address] [place] [phone] Annalisa Christopher MD [address] [place] [address] [address] [place] [address] Sinus Infection Social History Tobacco [...] * Telephone Encounter - Sanjana Tompkins - 02/22/2019 4:34 PM CDT Spoke to pt. * Telephone Encounter - Annalisa Christopher MD - 02/22/2019 4:16 PM CDT Rx sent Please inform patient * Telephone Encounter - Heracliofavio Sanjana - 02/22/2019 9:52 AM CDT Lots of yellow mucous Headache Sinus pressure and pain Sore throat Cough Fluid on ears with pain. No fever Sx X 2 wks ago. Using zurtic D and nasal wash. Asking for script if possible. documented in this encounter Plan of Treatment Upcoming Encounters Date Type Department Care Team (Late st Contact Info) Description 04/25/2025 8:20 AM CDT Office Visit [facility] Primary Care - [facility] [address] [facility] [address] [place] [address] Annalisa Christopher MD [address] [facility] [address] [place] [address] documented as of this encounter Visit Diagnoses Not on filedocumented in this encounter Additional Health Concerns Assessment Noted Time PHQ-9 Depression Total Score: 1 06/06/20 16 9:00 AM CDT documented as of this encounter Care Teams Copywriter Relationship Specialty Start Date End Date Annalisa Christopher MD [address] [facility] [address] [place] [address] PCP - General 07/07/08 documented as of this encounter
--- OUTSIDE RECORDS SUMMARY | 2024-10-06 18:13 | XMS_ITS | Encounter Summary ---
Author Organization [facility] Address [address] [place] [address] Care Team Providers Care Health Specialist Name Role Phone Annalisa Christopher MD Primary Care Provider [phone] Reason for Visit * Reason Comments Medication Refill Encounter Details Date Type Department Care Team (Late st Contact Info) Description 05/07/[address] [place] [address] Annalisa Christopher MD [address] [place] [address] [address] [place] [address] PTSD (post-traumatic stress disorder) Social [...] Visit [facility] [address] [place] [address] [address] [place] [address] Annalisa Christopher MD [address] [place] [address] [address] [place] [address] documented as of this encounter Visit Diagnoses Diagnosis PTSD (post-traumatic stress disorder) Posttraumatic stress disorder documented in this encounter Care Teams Health Specialist Relationship Specialty Start Date End Date Annalisa Christopher MD [address] [place] [address] PCP - General 07/07/08 documented as of this encounter
--- OUTSIDE RECORDS SUMMARY | 2024-10-06 18:13 | XMS_ITS | Encounter Summary ---
Author Organization [facility] Address [address] [place] [address] Care Team Providers Care Master Barber Name Role Phone Annalisa Christopher MD Primary Care Provider [phone] Reason for Referral * CT Scan (Routine) - Closed Specialty Diagnoses / Procedures Referred By Contac t Referred To Contact Radiology Diagnoses Flank pain Procedures CT ABDOMEN PELVIS WO CONTRAST Chloe Hollingsworth NP [address] [facility] [address] [place] [address] Scan [address] [facility] [address] [place] [address] Referral ID Status Reason Start Date Expiration Date V isits Requested Visits Authorized [id number] Closed STL CTS 07/23/2021 08/23/2022 1 1 Reason for Visit * Reason Comments ER Follow Up treated for a uti bu t not any better Encounter Details Date Type Department Care Team (Late st Contact Info) Description 07/23/2021 1:20 PM CDT Office Visit [facility] - [address] [place] [address] Chloe Hollingsworth NP [address] [facility] [address] [place] [address] LUQ abdominal pain (Primary Dx); Flank pain; Hematuria, unspecified type; Obesity (BMI 30.0-34.9) Social History Tobacco Use [...] PM CDT documented as of this encounter Last Filed Vital Signs Vital Sign Reading Time Taken Comments Blood Pressure 120/82 07/23/2021 1:09 PM CDT Pulse - - Temperature 36.7 ??C (98.1 ??F) 07/23/2021 1:09 PM CD T Respiratory Rate - - Oxygen Saturation - - Inhaled Oxygen Concentration - - Weight 88.6 kg (195 lb 4 oz) 07/23/2021 1:09 PM CDT Height 170.2 cm (5' 7 ) 07/23/2021 1:09 PM CDT Body Mass Index 30.58 07/23/2021 1:09 PM CDT documented in this encounter Progress Notes * Chloe Hollingsworth, SAI - 07/23/2021 1:20 PM CDT HISTORY OF PRESENT ILLNESS Fabiana Pryor, a 46 y.o. female presents with a Chief Complaint of ER Follow Up (treated for a uti but not any better) Subjective HPI Presents today for left-sided upper quadrant abdominal pain pain and flank pain for the past 3 weeks. She recently went to urgent care and was treated for a UTI given that she had blood in her urine.She reports that she is currently still taking antibiotics. She says the pain comes and goes and itfluctuates between being dull and intense. She is worried because both of her dad and grandpa had to have their spleens removed but she is unsure why. She denies any fever, chills, other abdominal pain, constipation, diarrhea, nausea, vomiting, easy bleeding or bruising, dysuria, and frequency. Current Outpatient Medications Medication Sig Dispense Refill ??? escitalopram oxalate (LEXAPRO) 10 mg tablet TAKE 1 TABLET BY MOUTH EVERY DAY 30 Tablet 4 ??? Breo Ellipta 100-25 mcg/dose Disk with Device INHALE 1 PUFF BY MOUTH EVERY DAY 60 Each 3 ??? promethazine (PHENERGAN) 25 mg tablet Take 1 Tablet (25 mg) by mouth every 6 hours as needed for Nausea/Emesis. 30 Tablet 0 ??? albuterol HFA 90 mcg inhaler TAKE 2 PUFFS EVERY 6 HOURS NEEDED FOR SHORTNESS OF BREATH.. 8.5Gram 11 ??? Peak Flow Meter Device Dx asthma. 1 Device 0 ??? fluticasone (FLONASE) 50 mcg/spray [place], Suspension Administer 2 Sprays in each nostril daily. ??? cetirizine-pseudoephedrine sr 12 hour (ZyrTEC-D) 5-120 mg tablet Take 1 Tablet by mouth 2 timesdaily. 60 Tablet 3 ??? diazePAM (VALIUM) 5 mg tablet Take 1 Tablet (5 mg) by mouth 1 time daily as needed for Anxiety.20 Tablet 0 ??? Levonorgestrel (MIRENA) 20 mcg/24 hr Intrauterine IUD by Intrauterine route. No current facility-administered medications for this visit. Allergies Allergen Reactions ??? Sulfa (Sulfonamide Antibiotics) Hives Past Medical History: Diagnosis Date ??? Allergic [...] AUGMENTATION 2006 [facility] ??? ME DELIVERY ONLY 2003 ??? ME DELIVERY ONLY 08/31/2011 SECTION performed by Douglas Jeffrey MD at [facility] L&D ??? ME DILATION/CURETTAGE,DIAGNOSTIC 09/08/2010 DILATATION AND CURETTAGE SUCTION performed by DOUGLAS JEFFREY at [facility] MA[facility] Family History Problem Relation Name Age of Onset ??? Hypertension Father ??? Heart Disease Father [place] 60's ??? Stroke Father ??? Diabetes Mother [...] level: Not on file Occupational History Employer: [employer] Tobacco Use ??? Smoking status: Former Smoker Quit date: 07/09/2010 Years since quittin.0 ??? Smokeless tobacco: Never Used Substance and Sexual Activity ??? Alcohol use: No ??? Drug use: No ??? Sexual activity: Yes Partners: Male Comment: LMP 06/05/10 Other Topics Concern ??? Not on file Social History Narrative ??? Not on file Social Determinants of Health Financial Resource Strain: ??? Difficulty of Paying Living Expenses: Not on file Food Insecurity: ??? Worried About Running Out of Food in the Last Year: Not on file ??? Ran Out of Food in the Last Year: Not on file Transportation Needs: ??? Lack of Transportation (Medical): Not on file ??? Lack of Transportation (Non-Medical): Not on file Physical Activity: ??? Days of Exercise per Week: Not on file ??? Minutes of Exercise per Session: Not on file Stress: ??? Feeling of Stress : Not on file Social Connections: ??? Frequency of Communication with Friends and Family: Not on file ??? Frequency of Social Gatherings with Friends and Family: Not on file ??? Attends Jew Services: Not on file ??? Active Member of Clubs or Organizations: Not on file ??? Attends Club or Organization Meetings: Not on file ??? Marital Status: Not on file Intimate Partner Violence: ??? Fear of Current or Ex-Partner: Not on file ??? Emotionally Abused: Not on file ??? Physically Abused: Not on file ??? Sexually Abused: Not on file REVIEW OF SYSTEMS Review of Systems Constitutional: Negative for chills, fatigue and fever. Respiratory: Negative for cough and shortness of breath. Cardiovascular: Negative for chest pain, palpitations and leg swelling. Gastrointestinal: Positive for abdominal pain (LUQ). Negative for constipation, diarrhea, nausea and vomiting. Genitourinary: Positive for flank pain (Left) and hematuria. Negative for dysuria, frequency and urgency. Hematological: Does not bruise/bleed easily. Objective PHYSICAL EXAM BP 120/82 Temp 98.1 ??F (36.7 ??C) Ht 5' 7 (1.702 m) Wt 88.6 kg (195 lb 4 oz) BMI 30.58 kg/m?? Physical Exam Constitutional: Appearance: Normal appearance. She is obese. Cardiovascular: Rate and Rhythm: Regular rhythm. Heart sounds: Normal heart sounds. Pulmonary: Effort: Pulmonary effort is normal. Breath sounds: Normal breath sounds. Abdominal: General: Bowel sounds are normal. Palpations: Abdomen is soft. Tenderness: There is abdominal tenderness in the left upper quadrant. There is left CVA tenderness.There is no right CVA tenderness. Hernia: No hernia is present. Skin: General: Skin is warm and dry. Neurological: General: No focal deficit present. Mental Status: She is alert and oriented to person, place, and time. Mental status is at baseline. Psychiatric: Mood and Affect: Mood normal. Behavior: Behavior normal. Thought Content: Thought content normal. Judgment: Judgment normal. Procedures Assessment ASSESSMENT and PLAN: ICD-10-CM ICD-9-CM 1. LUQ abdominal pain R10.12 789.02 -will send urine for culture to rule out urinary tract infection. -CT the abdomen pelvis without contrast ordered to rule out kidney stone given hematuria. Instructed patient that his symptoms worsen over the weekend she needs to present to the emergency departmentfor further evaluation. Patient agrees with plan. -Will check CBC for signs of infection. -BMP ordered to monitor kidney function. POC URINALYSIS DIPSTICK NON AUTOMATED CBC WITH DIFFERENTIAL BASIC METABOLIC PANEL 2. Flank pain R10.9 789.09 POC URINALYSIS DIPSTICK NON AUTOMATED URINE CULTURE CT ABDOMEN PELVIS WO CONTRAST BASIC METABOLIC PANEL URINE CULTURE 3. Hematuria, unspecified type R31.9 599.70 CBC WITH DIFFERENTIAL URINE CULTURE BASIC METABOLIC PANEL URINE CULTURE 4. Obesity (BMI 30.0-34.9) E66.9 278.00 -Encouraged patient to eat a healthy diet and exercise as tolerated at least 150 minutes per week. Follow up if symptoms worsen or do not improve with prescribed therapy. * Chloe Hollingsworth NP - 07/23/2021 1:10 PM CDT Tobacco Intervention She is not a tobacco user. Blood Pressure BP Readings from Last 3 Encounters: 02/17/21 133/86 10/22/20 122/68 03/29/19 110/70 Normal BMI Range: 18 & older: > or = 18.5 and < 25 Body mass index is 30.45 kg/m??. Abnormal high BMI: Patient counseled on lifestyle modifications including weight loss and daily exercise. documented in this encounter Miscellaneous Notes * Patient Instructions - Chloe Hollingsworth NP - 07/23/2021 1:36 PM CDT Central Test Scheduling will be contacting you by phone to schedule your test. If you have not received a call within two business days, please call [phone] or , Monday through Monday between 8 a.m. and 5 p.m. to schedule your test. documented in this encounter Plan of Treatment Upcoming Encounters Date Type Department Care Team (Late st Contact Info) Description 04/25/2025 8:20 AM CDT Office Visit [facility] Primary [facility] - [facility] [address] [facility] [address] [place] [address] Annalisa Christopher MD [address] [facility] [address] [place] [address] documented as of this encounter Procedures Procedure Name Priority Date/Time Associated Diagnosis Comments CBC WITH DIFFERENTIAL Routine 07/23/2021 1:47 PM CDT LUQ abdominal pain Hematuria, unspecified type BASIC METABOLIC PANEL Routine 07/23/2021 1:47 PM CDT Flank pain LUQ abdominal pain Hematuria, unspecified type POC URINALYSIS DIPSTICK NON AUTOMATED Routine 07/23/2021 1:45 PM CDT Flank pain LUQ abdominal pain URINE CULTURE Routine 07/23/2021 1:38 PM CDT Flank pain Hematuria, unspecified type documented in this encounter Results * CT [...] colon without mesenteric inflammatory process. DICTATION LOCATION: [address] 07/23/2021 2:[address] ABDOMEN AND [...] Within normal limits. ?? Procedure Note Deepak Winkler, DO - 07/23/2021 CT ABDOMEN AND PELVIS [...] without mesenteric inflammatory process. DICTATION LOCATION: [address] Chloe Hollingsworth NP CT ORDERABLES * BASIC METABOLIC PANEL (07/23/2021 1:47 PM CDT) GLUCOSE 86 65 - 99 mg/dL [facility] Comment: ? Fasting reference interval BUN 11 7 - 25 mg/dL [facility] CREATININE 0.84 0.50 - 1.10 mg/dL [facility] GFR 83 > OR = 60 mL/min/1. 73m2 [facility] GFR, 97 > OR = 60 mL/min/1. 73m2 [facility] BUN/CREAT RATIO NOT APPLICABLE 6 - 22 (calc) [facility] SODIUM 138 135 - 146 mmol/L [facility] POTASSIUM 4.3 3.5 - 5.3 mmol/L [facility] CHLORIDE 104 98 - 110 mmol/L [facility] CO2 27 20 - 32 mmol/L [facility] CALCIUM 9.6 8.6 - 10.2 mg/dL [facility] Comment: Test Performed at: [facility] [address] [place] ??[address] Cory Schreiber D.O., MPH Blood 07/23/2021 1:47 PM CDT 07/23/2021 1:47 PM CDT Chloe Hollingsworth NP CHEMISTRY ORDER ONUR [facility] [address] [place] [address] * (ABNORMAL) CBC WITH DIFFERENTIAL (07/23/2021 1:47 PM CDT) WBC 6.0 3.8 - 10.8 Thousand/ uL [facility] RBC 4.93 3.80 - 5.10 Million/u L [facility] HEMOGLOBIN 15.0 11.7 - 15.5 g/dL [facility] HEMATOCRIT 45.9(H) 35.0 - 45.0 % [facility] MCV 93.1 80.0 - 100.0 fL [facility] MCH 30.4 27.0 - 33.0 pg [facility] MCHC 32.7 32.0 - 36.0 g/dL [facility] RDW 12.2 11.0 - 15.0 % [facility] PLATELETS 276 140 - 400 Thousand/ uL [facility] MPV 10.3 7.5 - 12.5 fL [facility] NEUTROPHIL ABSOLUTE 3,444 1,500 - 7,800 cells/uL [facility] LYMPHOCYTE ABSOLUTE 1,902 850 - 3,900 cells/uL [facility] MONOCYTE ABSOLUTE 546 200 - 950 cells/uL [facility] EOSINOPHIL ABSOLUTE 78 15 - 500 cells/uL [facility] BASOPHILS ABSOLUTE 30 0 - 200 cells/uL [facility] NEUTROPHIL 57.4 % [facility] LYMPHOCYTES 31.7 % [facility] MONOCYTE 9.1 % [facility] EOSINOPHILS 1.3 % [facility] BASOPHILS 0.5 % [facility] Comment: FASTING:YES FASTING: YES Test Performed at: [facility] [address] [address] [place], [place] ??[address] Anna-Rut Mulligan Vo Blood 07/23/2021 1:47 PM CDT 07/23/2021 1:47 PM CDT Chloe Hollingsworth NP HEMATOLOGY HUMA VANESSA [facility] [address] [place] [address] * (ABNORMAL) POC URINALYSIS DIPSTICK NON AUTOMATED (07/23/2021 1:45 PM CDT) COLOR UA Yellow Pale to Dark Yellow [facility] [place] CLARITY UA Clear Clear [facility] [place] [facility] [place] GLUCOSE UA Negative Negative, Normal [facility] [place] BILIRUBIN UA Negative Negative [facility] [place] KETONES UA Negative Negative [facility] [place] [facility] [place] SPECIFIC GRAVITY UA POC 1.010 1.000 - 1.030 [facility] BLOOD UA Trace(A) Negative [facility] CLIN [facility] [place] PH UA 6.0 5.0 - 8.0 [facility] CL[facility] IC [facility] [place] PROTEIN UA Negative Negative [facility] [place] [facility] [place] UROBILINOGEN UA 0.2 <2.0 mg/dL [facility] [place] NITRITE UA Negative Negative [facility] [place] [facility] [place] LEUKOCYTE ESTERASE UA Negative Negative [facility] KIT LOT NUMBER POC [id number] [facility] KIT EXPIRATION DATE POC 11-22-21 [facility] Urine 07/23/2021 1:45 PM CDT Chloe Hollingsworth VIDEO GAME REPAIR TECHNICIAN POINT OF CARE T ESTING Performing Organization Address [facility] Co de Phone Number [facility] CLIA# [id number] [address] [place] [address] * URINE CULTURE (07/23/2021 1:38 PM CDT) URINE CULTURE [facility] Comment: ??CULTURE, URINE, ROUTINE ?Micro Number: ?[id number] ??Test Status: ? Final ??Specimen Source: ?? Voided ??Specimen Quality: ??Adequate ??Result: ?No Growth Test Performed at: [facility] [address] [address] [place] ??[address] Albin Lewis Urine URINE SPECIMEN OBTAINED BY CLEAN CATCH PROCEDURE / Unknown 07/23/2021 1:38 PM CDT 07/23/2021 11:36 PM CDT Chloe Hollingsworth NP MICROBIOLOGY - GENERAL ORDERABLES Performing Organization Address City/[facility] Co de Phone Number [facility] [address] [place] [address] documented in this encounter Visit Diagnoses Diagnosis LUQ abdominal pain- Primary Abdominal pain, left upper quadrant Flank pain Abdominal pain, unspecified site Hematuria, unspecified type Obesity (BMI 30.0-34.9) Obesity, unspecified Flank pain Abdominal pain, unspecified site documented in this encounter Care Teams Master Barber Relationship Specialty Start Date End Date Annalisa Christopher MD [address] [place] [address] PCP - General 07/07/08 documented as of this encounter
--- OUTSIDE RECORDS SUMMARY | 2024-10-06 18:13 | XMS_ITS | Encounter Summary ---
Author Organization [facility] Address [address] [place] [address] Care Team Providers Care Java Architect Name Role Phone Annalisa Christopher MD Primary Care Provider [phone] Reason for Visit * Reason Comments Medication Refill Encounter Details Date Type Department Care Team (Late st Contact Info) Description 07/02/[address] [place] [address] Annalisa Christopher MD [address] [place] [address] [address] [place] [address] PTSD (post-traumatic stress disorder) Social [...] 04/25/2025 8:20 AM CDT Office Visit [facility] [address] [place] [address] [address] [place] [address] Annalisa Christopher MD [address] [place] [address] [address] [place] [address] documented as of this encounter Visit Diagnoses Diagnosis PTSD (post-traumatic stress disorder) Posttraumatic stress disorder documented in this encounter Additional Health Concerns Assessment Noted Time PHQ-9 Depression Total Score: 1 06/06/20 16 9:00 AM CDT documented as of this encounter Care Teams Java Architect Relationship Specialty Start Date End Date Annalisa Christopher MD [address] [place] [address] PCP - General 07/07/08 documented as of this encounter
--- OUTSIDE RECORDS SUMMARY | 2024-10-06 18:13 | XMS_ITS | Encounter Summary ---
Author Organization [facility] Address [address] [place] [address] Care Team Providers Care Business Project Analyst Name Role Phone Annalisa Christopher MD Primary Care Provider [phone] Reason for Visit * Reason Onset Date Comments Upper Respiratory Symptoms 11/13/2018 Encounter Details Date Type Department Care Team (Late st Contact Info) Description 11/13/2018 Telephone [facility] Primary Care - [address] [place] [address] Annalisa Christopher MD [address] [place] [address] [address] [place] [address] Upper Respiratory Symptoms Social History [...] * Telephone Encounter - Kathleen Harmon - 11/13/2018 1:20 PM CST Spoke to pt AIDE * Telephone Encounter - Annalisa Christopher MD - 11/13/2018 12:42 PM CARE AIDE Tamiflu prescription sent Please inform patient AIDE * Telephone Encounter - Rita Maier - 11/13/2018 11:04 AM CST Pt calling back Just left pediatrics and dtr tested positive for influenza A Was suggested she gets tamiflu AIDE * Telephone Encounter - Rita Maier - 11/13/2018 8:53 AM CST Sinus pressure and pain Cough Yellow mucus Congestion Drainage Little sore throat Sx x couple weeks ago Taking flonase and zyrte AIDE documented in this encounter Plan of Treatment Upcoming Encounters Date Type Department Care Team (Late st Contact Info) Description 04/25/2025 8:20 AM CDT Office Visit [facility] Primary Care - [facility] [address] [facility] [address] [place] [address] Annalisa Christopher MD [address] [facility] [address] [place] [address] documented as of this encounter Visit Diagnoses Not on filedocumented in this encounter Additional Health Concerns Assessment Noted Time PHQ-9 Depression Total Score: 1 06/06/20 16 9:00 AM CDT documented as of this encounter Care Teams Business Project Analyst Relationship Specialty Start Date End Date Annalisa Christopher MD [address] [facility] [address] [place] [address] PCP - General 07/07/08 documented as of this encounter
--- OUTSIDE RECORDS SUMMARY | 2024-10-06 18:13 | XMS_ITS | Encounter Summary ---
Author Organization [facility] Address [address] [place] [address] Care Team Providers Care Kaiako Kura Kaupapa Maori Name Role Phone Annalisa Christopher MD Primary Care Provider [phone] Reason for Visit * Reason Onset Date Comments Upper Respiratory Symptoms 07/04/2019 Encounter Details Date Type Department Care Team (Late st Contact Info) Description 07/04/2019 Telephone [facility] Primary Care - [address] [place] [address] Annalisa Christopher MD [address] [place] [address] [address] [place] [address] Upper Respiratory Symptoms Social History [...] encounter Miscellaneous Notes * Telephone Encounter - Alva Alvares - 07/04/2019 5:24 PM CDT lmor for pt * Telephone Encounter - Annalisa Christopher MD - 07/04/2019 4:37 PM CDT Amox sent * Telephone Encounter - Emely Cuadra - 07/04/2019 11:33 AM CDT Drainage, yellow/green mucous, rt ear pain , pressure under eyes, no fever, Cough from drainage x 2wks Taking zyrtec and flonase Asking for rx? documented in this encounter Plan of Treatment Upcoming Encounters Date Type Department Care Team (Late st Contact Info) Description 04/25/2025 8:20 AM CDT Office Visit [facility] Primary Care - [facility] [address] [facility] [address] [place] [address] Annalisa Christopher MD [address] [facility] [address] [place] [address] documented as of this encounter Visit Diagnoses Not on filedocumented in this encounter Additional Health Concerns Assessment Noted Time PHQ-9 Depression Total Score: 1 06/06/20 16 9:00 AM CDT documented as of this encounter Care Teams Kaiako Kura Ka[place] Maori Relationship Specialty Start Date End Date Annalisa Christopher MD [address] [facility] [address] [place] [address] PCP - General 07/07/08 documented as of this encounter
--- OUTSIDE RECORDS SUMMARY | 2024-10-06 18:13 | XMS_ITS | Encounter Summary ---
Author Organization [facility] Address [address] [place] [address] Care Team Providers Care Insulation Cupola Operator Name Role Phone Annalisa Christopher MD Primary Care Provider [phone] Encounter Details Date Type Department Care Team (Late Contact Info) Description 02/17/2021 Orders Only [facility] [place] [address] [facility] [address] [place] [address] Heide Shannon MD [address] [facility] [address] [place] [address] Social History Tobacco Use Types Packs/Day Years [...] Description 04/25/2025 8:20 AM CDT Office Visit [facility] Primary Care - [facility] [address] [facility] [address] [place] [address] Annalisa Christopher MD [address] [place] [address] documented as of this encounter Visit Diagnoses Not on filedocumented in this encounter Care Teams Insulation Cupola Operator Relationship Specialty Start Date End Date Annalisa Christopher MD [address] [place] [address] PCP - General 07/07/08 documented as of this encounter
--- OUTSIDE RECORDS SUMMARY | 2024-10-06 18:13 | XMS_ITS | Encounter Summary ---
Author Organization [facility] Address [address] [place] [address] Care Team Providers Care Dredge Mechanic Name Role Phone Annalisa Christopher MD Primary Care Provider [phone] Reason for Visit * Reason Comments Medication Refill Encounter Details Date Type Department Care Team (Late Contact Info) Description 12/09/[address] [place] [address] Elkin Alvarez MD NO ADDRESS ON [...] Description 04/25/2025 8:20 AM CDT Office Visit [facility] [address] [place] [address] [address] [place] [address] Annalisa Christopher MD [address] [place] [address] [address] [place] [address] documented as of this encounter Visit Diagnoses Diagnosis Mild intermittent asthma without complication Unspecified asthma documented in this encounter Care Teams Dredge Mechanic Relationship Specialty Start Date End Date Annalisa Christopher MD [address] [facility] [address] [place] [address] PCP - General 07/07/08 documented as of this encounter
--- OUTSIDE RECORDS SUMMARY | 2024-10-06 18:13 | XMS_ITS | Encounter Summary ---
Author Organization [facility] Address [address] [place] [address] Care Team Providers Care Plant Inspector Name Role Phone Annalisa Christopher MD Primary Care Provider [phone] Encounter Details Date Type Department Care Team (Late Contact Info) Description 10/31/2018 Orders Only [facility] Admitting [address] [place] [address] Annalisa Christopher MD [address] [place] [address] [place] [address] Social History Tobacco Use Types Packs/Day [...] [facility] Primary [facility] - [facility] [address] [facility] [address] [place] [address] Annalisa Christopher MD [address] [place] [address] [address] [place] [address] documented as of this encounter Visit Diagnoses Not on filedocumented in this encounter Additional Health Concerns Assessment Noted Time PHQ-9 Depression Total Score: 1 06/06/20 16 9:00 AM CDT documented as of this encounter Care Teams Plant Inspector Relationship Specialty Start Date End Date Annalisa Christopher MD [address] [place] [address] PCP - General 07/07/08 documented as of this encounter
--- OUTSIDE RECORDS SUMMARY | 2024-10-06 18:13 | XMS_ITS | Encounter Summary ---
Author Organization [facility] Address [address] [place] [address] Care Team Providers Care Senior Maintenance Technician Name Role Phone Annalisa Christopher MD Primary Care Provider [phone] Reason for Visit * Reason Comments Medication Refill Encounter Details Date Type Department Care Team (Late st Contact Info) Description 10/06/2021 Refill [facility] Primary Care - [address] [place] [phone] Annalisa Christopher MD [address] [place] [address] [address] [place] [address] PTSD (post-traumatic stress disorder) Social [...] * Telephone Encounter - Skylar Leonardo - 10/06/2021 1:59 PM CST GRIFFIN 10- MOBILE LEASING SUPERVISOR documented in this encounter Plan of Treatment Upcoming Encounters Date Type Department Care Team (Late st Contact Info) Description 04/25/2025 8:20 AM CDT Office Visit [facility] Primary Care - [facility] [address] [facility] [address] [place] [phone] Annalisa Christopher MD [address] [facility] [address] [place] [address] documented as of this encounter Visit Diagnoses Diagnosis PTSD (post-traumatic stress disorder) Posttraumatic stress disorder documented in this encounter Care Teams Senior Maintenance Technician Relationship Specialty Start Date End Date Annalisa Christopher MD [address] [facility] [address] [place] [address] PCP - General 07/07/08 documented as of this encounter
--- OUTSIDE RECORDS SUMMARY | 2024-10-06 18:13 | XMS_ITS | Encounter Summary ---
Author Organization [facility] Address [address] [place] [address] Care Team Providers Care Housing Inspectors Name Role Phone Annalisa Christopher MD Primary Care Provider [phone] Reason for Visit * Reason Onset Date Comments change to VV 09/23/2020 poss exposure 09/23/2020 Encounter Details Date Type Department Care Team (Late st Contact Info) Description 09/23/2020 Telephone [facility] Primary Care - [address] [place] [address] Annalisa Christopher MD [address] [place] [address] [place] [phone] change to VV; poss exposure Social History Tobacco Use Types Packs/Day Years [...] * Telephone Encounter - Alva Alvares - 09/23/2020 10:43 AM CST Spoke w pt Did not need refills And will sched pe at a later date EXTINGUISHER SPRINKLER INSPECTOR * Telephone Encounter - Annalisa Christopher MD - 09/23/2020 10:39 AM FIRE EXTINGUISHER SPRINKLER INSPECTOR Does she need any medications refills? I can do video visit for that However for full physical I would rather have in person visit later EXTINGUISHER SPRINKLER INSPECTOR * Telephone Encounter - Shelly Vidal - 09/23/2020 9:21 AM CST Possible exposure on Monday No sxs Pt has PE appt today and was wanting to know if she can do a VV? Or reschedule? EXTINGUISHER SPRINKLER INSPECTOR documented in this encounter Plan of Treatment Upcoming Encounters Date Type Department Care Team (Late st Contact Info) Description 04/25/2025 8:20 AM CDT Office Visit [facility] Primary Care - [facility] [address] [place] [address] Annalisa Christopher MD [address] [place] [address] documented as of this encounter Visit Diagnoses Not on filedocumented in this encounter Additional Health Concerns Assessment Noted Time PHQ-9 Depression Total Score: 1 06/06/20 16 9:00 AM CDT documented as of this encounter Care Teams Housing Inspectors Relationship Specialty Start Date End Date Annalisa Christopher MD [address] [place] [address] PCP - General 07/07/08 documented as of this encounter
--- OUTSIDE RECORDS SUMMARY | 2024-10-06 18:13 | XMS_ITS | Encounter Summary ---
Author Organization [facility] Address [address] [place] [address] Care Team Providers Care Mortgage Analyst Name Role Phone Annalisa Christopher MD Primary Care Provider [phone] Reason for Visit * Reason Onset Date Comments Sinus Problem 08/31/2018 Encounter Details Date Type Department Care Team (Late st Contact Info) Description 08/31/2018 Telephone [facility] Primary Care - [address] [place] [address] Annalisa Christopher MD [address] [place] [address] [address] [place] [address] Sinus Problem Social History Tobacco Use Types Packs/Day Years [...] * Telephone Encounter - Emely Cuadra - 08/31/2018 3:59 PM CST Spoke to pt MAKER HELPER * Telephone Encounter - Annalisa Christopher MD - 08/31/2018 3:40 PM CST [employer] sent Call back if no better MAKER HELPER * Telephone Encounter - Josefina Dye - 08/31/2018 8:45 AM CST Pt says having pressure in the ears, and underneath the eyes, Pt says have lots of drainage and sore throat Blowing out green and yellow mucus. Pt says sxs Been since Mon. Pt took zyrtech alkaseltzer plus Pt wanting Rx MAKER HELPER documented in this encounter Plan of Treatment Upcoming Encounters Date Type Department Care Team (Late st Contact Info) Description 04/25/2025 8:20 AM CDT Office Visit [facility] Primary Care - [facility] [address] [facility] [address] [place] [phone] Annalisa Christopher MD [address] [facility] [address] [place] [address] documented as of this encounter Visit Diagnoses Not on filedocumented in this encounter Additional Health Concerns Assessment Noted Time PHQ-9 Depression Total Score: 1 06/06/20 16 9:00 AM CDT documented as of this encounter Care Teams Mortgage Analyst Relationship Specialty Start Date End Date Annalisa Christopher MD [address] [facility] [address] [place] [phone] PCP - General 07/07/08 documented as of this encounter
--- OUTSIDE RECORDS SUMMARY | 2024-10-06 18:13 | XMS_ITS | Encounter Summary ---
Author Organization [facility] Address [address] [place] [address] Care Team Providers Care Commercial Kitchen Service Technician Name Role Phone Annalisa Christopher MD Primary Care Provider [phone] Reason for Visit * Reason Onset Date Comments Upper Respiratory Symptoms 05/26/2023 Encounter Details Date Type Department Care Team (Late st Contact Info) Description 05/26/2023 Telephone [facility] Primary Care - [address] [place] [address] Annalisa Christopher MD [address] [place] [address] [place] [address] Upper Respiratory Symptoms Social History Tobacco [...] encounter Miscellaneous Notes * Telephone Encounter - Estefanía George RN - 05/26/2023 3:36 PM CDT Called and left VM for pt to call back. Left detailed message with information from prior note. [employer] Message sent. * Telephone Encounter - Annalisa Christopher MD - 05/26/2023 2:51 PM CDT Please inform patient, amoxicillin has been sent due to drug drug interaction Z- Natan and her Lexapro * Telephone Encounter - Emely Cuadra - 05/26/2023 8:35 AM CDT Yellow mucous, terrible ji, earache, s/t, cough from drainage, no fever, no sob, no wheezing, no aches or chills, no n/v, no diarrhea, has a lot of sinus pressure under eyes x 5 days Pt taking zyrtec, flonase, netti pot. NEG covid test last night. Asking for rx? documented in this encounter Plan of Treatment Upcoming Encounters Date Type Department Care Team (Late st Contact Info) Description 04/25/2025 8:20 AM CDT Office Visit [facility] Primary Care - [place] [id number] [facility] [address] [place] [address] Annalisa Christopher MD [address] [place] [address] [place] [address] documented as of this encounter Visit Diagnoses Not on filedocumented in this encounter Care Teams Commercial Kitchen Service Technician Relationship Specialty Start Date End Date Annalisa Christopher MD [address] [facility] [address] [place] [address] PCP - General 07/07/08 documented as of this encounter
--- OUTSIDE RECORDS SUMMARY | 2024-10-06 18:13 | XMS_ITS | Encounter Summary ---
Author Organization [facility] Address [address] [place] [address] Care Team Providers Care Belting Inspector Name Role Phone Annalisa Christopher MD Primary Care Provider [phone] Reason for Visit * Reason Onset Date Comments Medication Refill 05/09/2022 Encounter Details Date Type Department Care Team (Late st Contact Info) Description 05/09/2022 Refill [facility] Primary Care - [address] [place] [address] Annalisa Christopher MD [address] [place] [address] [place] [address] Mild intermittent asthma without complication Social [...] * Telephone Encounter - Sanjana Tompkins - 05/10/2022 12:56 PM CDT mimi 8/5/22 documented in this encounter Plan of Treatment Upcoming Encounters Date Type Department Care Team (Late st Contact Info) Description 04/25/2025 8:20 AM CDT Office Visit [facility] Primary Care - [facility] [address] [facility] [address] [place] [phone] Annalisa Christopher MD [address] [facility] [address] [place] [address] documented as of this encounter Visit Diagnoses Diagnosis Mild intermittent asthma without complication Unspecified asthma documented in this encounter Care Teams Belting Inspector Relationship Specialty Start Date End Date Annalisa Christopher MD [address] [facility] [address] [place] [address] PCP - General 07/07/08 documented as of this encounter
--- OUTSIDE RECORDS SUMMARY | 2024-10-06 18:13 | XMS_ITS | Encounter Summary ---
Author Organization [facility] Address [address] [place] [address] Care Team Providers Care Corrugator Name Role Phone Annalisa Christopher MD Primary Care Provider [phone] Reason for Visit * Reason Comments Medication Refill Encounter Details Date Type Department Care Team (Late st Contact Info) Description 11/24/[address] [place] [phone] Annalisa Christopher MD [address] [place] [address] [address] [place] [address] PTSD (post-traumatic stress disorder) Social [...] Description 04/25/2025 8:20 AM CDT Office Visit [facility] [address] [place] [address] [address] [place] [address] Annalisa Christopher MD [address] [place] [address] [address] [place] [address] documented as of this encounter Visit Diagnoses Diagnosis PTSD (post-traumatic stress disorder) Posttraumatic stress disorder documented in this encounter Care Teams Corrugator Relationship Specialty Start Date End Date Annalisa Christopher MD [address] [place] [phone] PCP - General 07/07/08 documented as of this encounter
--- OUTSIDE RECORDS SUMMARY | 2024-10-06 18:13 | XMS_ITS | Encounter Summary ---
Author Organization [facility] Address [address] [place] [address] Care Team Providers Care Transformer Mechanic Name Role Phone Annalisa Christopher MD Primary Care Provider [phone] Reason for Visit * Reason Comments Med Refill Encounter Details Date Type Department Care Team (Late st Contact Info) Description 12/05/[address] [place] [phone] Elkin Alvarez MD NO ADDRESS ON [...] Description 04/25/2025 8:20 AM CDT Office Visit [facility] [address] [place] [address] [address] [place] [address] Annalisa Christopher MD [address] [place] [address] [address] [place] [address] documented as of this encounter Visit Diagnoses Diagnosis Mild intermittent asthma without complication Unspecified asthma documented in this encounter Care Teams Transformer Mechanic Relationship Specialty Start Date End Date Annalisa Christohper MD [address] [facility] [address] [place] [address] PCP - General 07/07/08 documented as of this encounter
--- OUTSIDE RECORDS SUMMARY | 2024-10-06 18:13 | XMS_ITS | Encounter Summary ---
Author Organization [facility] Address [address] [place] [address] Care Team Providers Care Recovery Assistant Name Role Phone Annalisa Christopher MD Primary Care Provider [phone] Reason for Visit * Reason Onset Date Comments Upper Respiratory Symptoms 02/15/2022 Encounter Details Date Type Department Care Team (Late st Contact Info) Description 02/15/2022 Telephone [facility] Primary Care - [address] [place] [phone] Annalisa Christopher MD [address] [place] [address] [place] [address] Upper Respiratory Symptoms Social History Tobacco [...] * Telephone Encounter - Skylar Leonardo - 02/15/2022 10:22 AM CDT Spoke to Pt Scheduled PE * Telephone Encounter - Annalisa Christopher MD - 02/15/2022 10:08 AM CDT Antibiotic and Dosepak sent for patient to her pharmacy Please schedule appointment her annual physical please offer nurse practitioner * Telephone Encounter - Emely Cuadra - 02/15/2022 9:10 AM CDT Head roseline, pressure around eyes, thick yellow/green nasal roseline, ji, no fever, a lot of drainage, ear did hurt yest off/on, s/t, Prod cough in am, dry during day, no wheeze or sob x 2wks Taking zyrtec D, mucinex, netti pot, flonase Bothering her asthma Neg home covid test on sun pls advise? documented in this encounter Plan of Treatment Upcoming Encounters Date Type Department Care Team (Late st Contact Info) Description 04/25/2025 8:20 AM CDT Office Visit [facility] Primary Care - [place] [id number] [facility] [address] [place] [phone] Annalisa Christopher MD [address] [place] [address] [place] [address] documented as of this encounter Visit Diagnoses Not on filedocumented in this encounter Care Teams Recovery Assistant Relationship Specialty Start Date End Date Annalisa Christopher MD [address] [facility] [address] [place] [address] PCP - General 07/07/08 documented as of this encounter
--- OUTSIDE RECORDS SUMMARY | 2024-10-06 18:13 | XMS_ITS | Encounter Summary ---
Author Organization [facility] Address [address] [place] [address] Care Team Providers Care Mainframe Consultant Name Role Phone Annalisa Christopher MD Primary Care Provider [phone] Reason for Visit * Reason Comments Medication Refill Encounter Details Date Type Department Care Team (Late st Contact Info) Description 08/28/[address] [place] [address] Annalisa Christopher MD [address] [place] [address] [address] [place] [address] PTSD (post-traumatic stress disorder) Social [...] Description 04/25/2025 8:20 AM CDT Office Visit [facility] [address] [place] [address] [address] [place] [address] Annalisa Christopher MD [address] [place] [address] [address] [place] [address] documented as of this encounter Visit Diagnoses Diagnosis PTSD (post-traumatic stress disorder) Posttraumatic stress disorder documented in this encounter Additional Health Concerns Assessment Noted Time PHQ-9 Depression Total Score: 1 06/06/20 16 9:00 AM CDT documented as of this encounter Care Teams Mainframe Consultant Relationship Specialty Start Date End Date Annalisa Christopher MD [address] [place] [phone] PCP - General 07/07/08 documented as of this encounter
--- OUTSIDE RECORDS SUMMARY | 2024-10-06 18:13 | XMS_ITS | Encounter Summary ---
Author Organization [facility] Address [address] [place] [address] Care Team Providers Care Metal Rivet Machine Operator Name Role Phone Annalisa Christopher MD Primary Care Provider [phone] Reason for Referral * Eval and Treat (Routine) - Closed Specialty Diagnoses / Procedures Referred By Contac t Referred To Contact Gastroenterology Diagnoses Colon cancer screening Procedures OV Annalisa Christopher MD [address] [place] [address] [address] [place] [address] Heide Shannon MD [address] [address] Referral ID Status Reason Start Date Expiration Date V isits Requested Visits Authorized [id number] Closed CRS to Schedule 10/22/2020 10/22/2021 1 1 PATCHER Reason for Visit * Reason Comments Physical fasting Encounter Details Date Type Department Care Team (Late st Contact Info) Description 10/22/2020 10:00 AM BAG PATCHER Office Visit [facility] Primary Care - [facility] [address] [facility] [address] [place] [address] Annalisa Christopher MD [address] [place] [address] [address] [place] [address] Wellness examination (Primary Dx); Mixed hyperlipidemia; Mild intermittent asthma without complication; Allergic rhinitis due to pollen, unspecified seasonality; Colon cancer screening; Migraine without status migrainosus, not [...] COVID-19? No / Unsure 10/22/2020 9:45 AM BAG PATCHER documented as of this encounter Last Filed Vital Signs Vital Sign Reading Time Taken Comments Blood Pressure 122/68 10/22/2020 9:59 AM BAG PATCHER Pulse 79 10/22/2020 9:59 AM BAG PATCHER Temperature - - Respiratory Rate - - Oxygen Saturation 98% 10/22/2020 9:59 AM BAG PATCHER Inhaled Oxygen Concentration - - Weight 87.1 kg (192 lb) 10/22/2020 9:59 AM BAG PATCHER Height 170.2 cm (5' 7 ) 10/22/2020 9:59 AM BAG PATCHER Body Mass Index 30.07 10/22/2020 9:59 AM BAG PATCHER documented in this encounter Progress Notes * Annalisa Christopher MD - 10/22/2020 10:47 AM CST HISTORY OF PRESENT ILLNESS Fabiana Pryor, a 45 y.o. female presents with a Chief Complaint of Physical (fasting ) Subjective HPI Fabiana Pryor is a 45 y.o. female presenting with PE . Patient Active Problem List Diagnosis Date Noted ??? Asthma ??? Mixed hyperlipidemia 10/12/2018 ??? Allergic rhinitis 08/05/2013 ??? Migraine frequently accompanied by nausea Usually about 2 episodes per month 10/07/2010 Current Outpatient Medications Medication Sig Dispense Refill ??? promethazine (PHENERGAN) 25 mg tablet Take 1 Tablet (25 mg) by mouth every 6 hours as needed for Nausea/Emesis. 30 Tablet 0 ??? Breo Ellipta 100-25 mcg/dose Disk with Device INHALE 1 PUFF BY MOUTH EVERY DAY 60 Each 1 ??? escitalopram oxalate (LEXAPRO) 10 mg tablet TAKE 1 TABLET BY MOUTH EVERY DAY 30 Tablet 4 ??? albuterol HFA 90 mcg inhaler TAKE 2 PUFFS EVERY 6 HOURS NEEDED FOR SHORTNESS OF BREATH.. 8.5Gram 11 ??? Peak Flow Meter Device Dx asthma. 1 Device 0 ??? fluticasone (FLONASE) 50 mcg/spray [place], Suspension Administer 2 Sprays in each nostril [...] Social History Tobacco Use Smoking Status Former Smoker ??? Quit date: 07/09/2010 ??? Years since quittin.3 Smokeless Tobacco Never Used Fall Risk She has had no falls in the past year. Tobacco Intervention She is not a tobacco user. Depression Screen Positive: PHQ-2 score >= 3 or PHQ-9 score >= 9 PHQ-2 Total: 0 (10/22/2020 10:00 AM) PHQ-9 Total: 6 (10/22/2020 10:00 AM) DEPRESSION PLAN OF CARE Her depression screen was normal Blood Pressure BP Readings from Last 3 Encounters: 10/22/20 122/68 03/29/19 110/70 10/12/18 106/62 Normal BMI Range: 18 & older: > or = 18.5 and < 25 Body mass index is 30.07 kg/m??. Abnormal high BMI: Patient counseled on [...] for behavioral problems. Objective PHYSICAL EXAM BP 122/68 (BP Location: Left arm, Patient Position (BP): Sitting, BP Cuff Size: Large Adult) Pulse 79 Ht 5' 7 (1.702 m) Wt 87.1 kg (192 lb) SpO2 98% BMI 30.07 kg/m?? Physical Exam Constitutional: General: She is not in acute distress. Appearance: She is obese. She is not diaphoretic. HENT: Head: Normocephalic and atraumatic. Right Ear: External ear normal. Left Ear: External ear normal. Mouth/Throat: Pharynx: No oropharyngeal exudate. Eyes: Conjunctiva/sclera: Conjunctivae normal. Pupils: Pupils are equal, round, and reactive to light. Neck: Musculoskeletal: Normal range of motion and neck supple. Thyroid: No thyromegaly. Cardiovascular: Rate and Rhythm: Normal rate and regular rhythm. Heart sounds: Normal heart sounds. Comments: No carotid bruit Pulmonary: Effort: Pulmonary effort is normal. Breath sounds: Normal breath sounds. No wheezing or rales. Abdominal: General: Bowel sounds are normal. Palpations: Abdomen is soft. Tenderness: There is no abdominal tenderness. There is no guarding. Lymphadenopathy: Cervical: No cervical adenopathy. Skin: General: Skin is warm and dry. Neurological: Mental Status: She is alert and oriented to person, place, and time. Psychiatric: Behavior: Behavior normal. Procedures Assessment ASSESSMENT and PLAN: ICD-10-CM ICD-9-CM 1. Wellness examination Z00.00 V70.0 The patient is advised to continue current medications, continue current healthy lifestyle patterns and return for routine annual checkups. 2. Mixed hyperlipidemia E78.2 272.2 The patient is advised to follow a low fat, low cholesterol diet. 3. Mild intermittent asthma without complication J45.20 493.90 stable 4. Allergic rhinitis due to pollen, unspecified seasonality J30.1 477.0 stable 5. Colon cancer screening Z12.11 V76.51 AMB REFERRAL TO GASTROENTEROLOGY 6. Migraine without status migrainosus, not intractable, unspecified migraine type G43.909 346.90 promethazine (PHENERGAN) 25 mg tablet PATCHER documented in this encounter Plan of Treatment Upcoming Encounters Date Type Department Care Team (Late st Contact Info) Description 04/25/2025 8:20 AM CDT Office Visit [facility] Primary Care - [facility] [address] [facility] [address] [place] [address] Annalisa Christopher MD [address] [facility] [address] [place] [address] Scheduled Referrals Name Type Priority Associated Diagnoses Order Schedule AMB REFERRAL TO GASTROENTEROLOGY Outpatient Referral Routine Colon cancer screening Ordered: 10/22/2020 documented as of this encounter Visit Diagnoses Diagnosis Wellness examination- Primary Mixed hyperlipidemia Mild intermittent asthma without complication Unspecified asthma Allergic rhinitis due to pollen, unspecified seasonality Colon cancer screening Special screening for malignant neoplasms, colon Migraine without status migrainosus, not intractable, unspecified migraine type documented in this encounter Care Teams Metal Rivet Machine Operator Relationship Specialty Start Date End Date Annalisa Christopher MD [address] [facility] [address] [place] [address] PCP - General 07/07/08 documented as of this encounter
--- OUTSIDE RECORDS SUMMARY | 2024-10-06 18:13 | XMS_ITS | Encounter Summary ---
Author Organization [facility] Address [address] [place] [address] Care Team Providers Care Rocket Engine Component Mechanic Name Role Phone Annalisa Christopher MD Primary Care Provider [phone] Reason for Visit * Reason Comments Medication Refill Encounter Details Date Type Department Care Team (Late st Contact Info) Description 04/08/2022 Refill [facility] [address] [place] [address] [place] [address] Annalisa Christopher MD [address] [place] [address] [address] [place] [address] Migraine without status migrainosus, not [...] Description 04/25/2025 8:20 AM CDT Office Visit [facility] [address] [place] [address] [address] [place] [address] Annalisa Christopher MD [address] [place] [address] [address] [place] [address] documented as of this encounter Visit Diagnoses Diagnosis Migraine without status migrainosus, not intractable, unspecified migraine type documented in this encounter Care Teams Rocket Engine Component Mechanic Relationship Specialty Start Date End Date Annalisa Christopher MD [address] [facility] [address] [place] [address] PCP - General 07/07/08 documented as of this encounter
--- OUTSIDE RECORDS SUMMARY | 2024-10-06 18:13 | XMS_ITS | Encounter Summary ---
Author Organization [facility] Address [address] [place] [address] Care Team Providers Care Forest Fire Management Officer Name Role Phone Annalisa Christopher MD Primary Care Provider [phone] Reason for Visit * Reason Onset Date Comments Sinus Infection 12/21/2017 Encounter Details Date Type Department Care Team (Late st Contact Info) Description 12/21/2017 Telephone [facility] Primary Care - [address] [place] [address] Annalisa Christopher MD [address] [place] [address] [address] [place] [address] Sinus Infection Social History Tobacco [...] * Telephone Encounter - Emely Cuadra - 12/21/2017 1:57 PM CDT Spoke to pt * Telephone Encounter - Annalisa Christopher MD - 12/21/2017 1:41 PM CDT Amox sent Call back if no better * Telephone Encounter - Kathleen Harmon - 12/21/2017 9:17 AM CDT Think green drainage Sinus pain and pressure Headache Facial pain No fever Hacking cough Sx x 2wks but worsened past 4 days Taking zyrtec-d Asking for rx? documented in this encounter Plan of Treatment Upcoming Encounters Date Type Department Care Team (Late st Contact Info) Description 04/25/2025 8:20 AM CDT Office Visit [facility] Primary Care - [facility] [address] [facility] [address] [place] [address] Annalisa Christopher MD [address] [facility] [address] [place] [address] documented as of this encounter Visit Diagnoses Not on filedocumented in this encounter Additional Health Concerns Assessment Noted Time PHQ-9 Depression Total Score: 1 06/06/20 16 9:00 AM CDT documented as of this encounter Care Teams Forest Fire Management Officer Relationship Specialty Start Date End Date Annalisa Christopher MD [address] [facility] [address] [place] [address] PCP - General 07/07/08 documented as of this encounter
--- OUTSIDE RECORDS SUMMARY | 2024-10-06 18:13 | XMS_ITS | Encounter Summary ---
Author Organization [facility] Address [address] [place] [address] Care Team Providers Care Quarry Extraction Worker Name Role Phone Annalisa Christopher MD Primary Care Provider [phone] Reason for Visit * Reason Onset Date Comments Upper Respiratory Symptoms 09/20/2019 Encounter Details Date Type Department Care Team (Late st Contact Info) Description 09/20/2019 Telephone [facility] Primary Care - [address] [place] [address] Annalisa Christopher MD [address] [place] [address] [address] [place] [address] Upper Respiratory Symptoms Social History [...] * Telephone Encounter - Alva Alvares - 09/20/2019 10:41 AM CST Spoke w pt appt made per her request RAFT SEAT UPHOLSTERER * Telephone Encounter - Cory Morris MD - 09/20/2019 10:22 AM AIRCRAFT SEAT UPHOLSTERER Suggest appt with [facility] next week to discuss further testing and or referral to ENT or other specialist. Finish up meds in meantime RAFT SEAT UPHOLSTERER * Telephone Encounter - Emely Cuadra - 09/20/2019 10:07 AM CST Has been on 2 rounds of augmentin from [facility] Currently has 5 more days left of augmentin. Cleared up for few days Symptoms coming back x last night Mucous is yellow/green again, a lot of drainage, Cough, wheezing and sob is alittle better. No fever, ji, s/t, earache. Pt is also taking zyrtec d, flonase, netti pot Robitussin Asthma is better. pls advise? RAFT SEAT UPHOLSTERER documented in this encounter Plan of Treatment Upcoming Encounters Date Type Department Care Team (Late st Contact Info) Description 04/25/2025 8:20 AM CDT Office Visit [facility] Primary Care - [facility] [address] [facility] [address] [place] [phone] Annalisa Christopher MD [address] [facility] [address] [place] [address] documented as of this encounter Visit Diagnoses Not on filedocumented in this encounter Additional Health Concerns Assessment Noted Time PHQ-9 Depression Total Score: 1 06/06/20 16 9:00 AM CDT documented as of this encounter Care Teams Quarry Extraction Worker Relationship Specialty Start Date End Date Annalisa Christopher MD [address] [facility] [address] [place] [address] PCP - General 07/07/08 documented as of this encounter
--- OUTSIDE RECORDS SUMMARY | 2024-10-06 18:13 | XMS_ITS | Encounter Summary ---
Author Organization [facility] Address [address] [place] [address] Care Team Providers Care Wirer Name Role Phone Annalisa Christopher MD Primary Care Provider [phone] Reason for Visit * Reason Comments Physical Encounter Details Date Type Department Care Team (Late st Contact Info) Description 04/29/2022 9:20 AM CDT Office Visit [facility] Primary Care - [address] [place] [address] Annalisa Christopher MD [address] [place] [address] [address] [place] [address] Wellness examination (Primary Dx); Mixed hyperlipidemia; Colon cancer screening; Need for pneumococcal vaccination; Mild intermittent asthma without complication; Migraine without status migrainosus, not intractable, unspecified migraine type; Benign essential tremor Social History Tobacco Use [...] Sign Reading Time Taken Comments Blood Pressure 124/76 04/29/2022 9:27 AM CDT Pulse 101 04/29/2022 9:27 AM CDT Temperature - - Respiratory Rate - - Oxygen Saturation 99% 04/29/2022 9:27 AM CDT Inhaled Oxygen Concentration - - Weight 89.9 kg (198 lb 3.2 oz) 04/29/2022 9:27 A M CDT Height 170.2 cm (5' 7 ) 04/29/2022 9:27 AM CDT Body Mass Index 31.04 04/29/2022 9:27 AM CDT documented in this encounter Progress Notes * Annalisa Christopher MD - 04/29/2022 9:56 AM CDT HISTORY OF PRESENT ILLNESS Fabiana Pryor, a 46 y.o. female presents with a Chief Complaint of Physical Subjective HPI Fabiana Pryor is a 46 y.o. female presenting with PE - patient is feeling well - noticing Worsening L hand tremor - patient has strong FHx of tremor Patient Active Problem List Diagnosis Date Noted ??? Benign essential tremor 04/29/2022 ??? Asthma ??? Mixed hyperlipidemia 10/12/2018 ??? Allergic rhinitis 08/05/2013 ??? Migraine 10/07/2010 Current Outpatient Medications Medication Sig Dispense Refill ??? propranoloL (INDERAL) 20 mg tablet Take 1 Tablet (20 mg) by mouth 3 times daily. 90 Tablet 11 ??? fluticasone furoate-vilanteroL (BREO ELLIPTA) 100-25 mcg/dose Disk with Device INHALE 1 PUFF BYMOUTH EVERY DAY 60 Each 3 ??? promethazine (PHENERGAN) 25 mg tablet TAKE 1 TABLET (25 MG) BY MOUTH EVERY 6 HOURS NEEDED FOR NAUSEA/EMESIS. 30 Tablet 0 ??? escitalopram oxalate (LEXAPRO) 10 mg tablet TAKE 1 TABLET BY MOUTH EVERY DAY 30 Tablet 10 ??? tamsulosin (FLOMAX) 0.4 mg capsule TAKE 1 CAPSULE BY MOUTH EVERY DAY 30 Capsule 0 ??? albuterol HFA 90 mcg inhaler TAKE 2 PUFFS EVERY 6 HOURS NEEDED FOR SHORTNESS OF BREATH.. 8.5Gram 11 ??? Peak Flow Meter Device Dx asthma. 1 Device 0 ??? fluticasone (FLONASE) 50 mcg/spray [place], Suspension Administer 2 Sprays in each nostril daily. ??? cetirizine-pseudoephedrine sr 12 hour (ZyrTEC-D) 5-120 mg tablet Take 1 Tablet by mouth 2 timesdaily. 60 Tablet 3 ??? diazePAM (VALIUM) 5 mg tablet Take 1 Tablet (5 mg) by mouth 1 time daily as needed for Anxiety.20 Tablet 0 ??? levonorgestreL (MIRENA) 20 mcg/24 hours (7 yrs) 52 mg IUD by Intrauterine route. No current facility-administered medications for this visit. Social History Tobacco Use Smoking Status Former Smoker ??? Quit date: 07/09/2010 ??? Years since quittin.8 Smokeless Tobacco Never Used Fall Risk She has had no falls in the past year. Tobacco Intervention She is not a tobacco user. TOBACCO COUNSELING She is not a tobacco user. Depression Screen Positive: PHQ-2 score >= 3 or PHQ-9 score >= 9 PHQ-2 Total: 0 (04/29/2022 9:00 AM) PHQ-9 Total: 4 (04/29/2022 9:00 AM) DEPRESSION PLAN OF CARE Her depression screen was negative. Blood Pressure BP Readings from Last 3 Encounters: 04/29/22 124/76 07/23/21 120/82 02/17/21 133/86 Normal BMI Range: 18 & older: > or = 18.5 and < 25 Body mass index is 31.04 kg/m??. Abnormal high BMI: Patient counseled on lifestyle modifications including weight loss and daily exercise. Wt Readings from Last 3 Encounters: 04/29/22 89.9 kg (198 lb 3.2 oz) 07/23/21 88.6 kg (195 lb 4 oz) 02/17/21 88.2 kg (194 lb 6.4 oz) REVIEW OF SYSTEMS Review of Systems [...] Negative for arthralgias and joint swelling. Neurological: Positive for tremors. Negative for dizziness and numbness. Psychiatric/Behavioral: Negative. Negative for behavioral problems. Objective PHYSICAL EXAM BP 124/76 (BP Location: Right arm, Patient Position (BP): Sitting, BP Cuff Size: Large Adult) Pulse (!) 101 Ht 5' 7 (1.702 m) Wt 89.9 kg (198 lb 3.2 oz) SpO2 99% BMI 31.04 kg/m?? Physical Exam Constitutional: General: She is [...] and oriented to person, place, and time. Comments: Left hand fine action tremor Psychiatric: Behavior: Behavior normal. Procedures Assessment ASSESSMENT and PLAN: ICD-10-CM ICD-9-CM 1. Wellness examination Z00.00 V70.0 The patient is advised to continue current medications, continue current healthy lifestyle patterns and return for routine annual checkups. 2. Mixed hyperlipidemia E78.2 272.2 COMPREHENSIVE METABOLIC PANEL LIPID PANEL URINALYSIS WITH REFLEX MICROSCOPIC The patient is advised to follow a low fat, low cholesterol diet. 3. Colon cancer screening Z12.11 V76.51 ENDOSCOPY, COLON, SCREENING 4. Need for pneumococcal vaccination Z23 V03.82 PNEUMOCOCCAL 20-VALENT CONJUGATE VACCINE 5. Mild intermittent asthma without complication J45.20 493.90 Stable 6. Migraine without status migrainosus, not intractable, unspecified migraine type G43.909 346.90 Stable 7. Benign essential tremor G25.0 333.1 propranoloL (INDERAL) 20 mg tablet po TID prn Fabiana Pryor expressed good understanding of the issues discussed and all questions were addressed and fully answered. Fabiana Pryor was also advised to call back directly if there are further questions, or if these symptoms fail to improve as anticipated or worsen. This has been fully explained to the patient, who indicates understanding. documented in this encounter Plan of Treatment Upcoming Encounters Date Type Department Care Team (Late st Contact Info) Description 04/25/2025 8:20 AM CDT Office Visit [facility] Primary Care - [facility] [address] [place] [address] Annalisa Christopher MD [address] [facility] [address] [place] [address] documented as of this encounter Visit Diagnoses Diagnosis Wellness examination- Primary Mixed hyperlipidemia Colon cancer screening Special screening for malignant neoplasms, colon Need for pneumococcal vaccination Need for prophylactic vaccination against streptococcus pneumoniae (pneumococcus) Mild intermittent asthma without complication Unspecified asthma Migraine without status migrainosus, not intractable, unspecified migraine type Benign essential tremor Essential and other specified forms of tremor documented in this encounter Care Teams Wirer Relationship Specialty Start Date End Date Annalisa Christopher MD [address] [facility] [address] [place] [address] PCP - General 07/07/08 documented as of this encounter
--- OUTSIDE RECORDS SUMMARY | 2024-10-06 18:13 | XMS_ITS | Encounter Summary ---
Author Organization [facility] Address [address] [place] [address] Care Team Providers Care Compensator Name Role Phone Annalisa Christopher MD Primary Care Provider [phone] Reason for Visit * Reason Comments Medication Refill Encounter Details Date Type Department Care Team (Late Contact Info) Description 08/15/2021 Refill [facility] [address] [place] [address] [place] [address] Annalisa Christopher MD [address] [place] [address] [address] [place] [address] Nephrolithiasis Social History Tobacco Use Types Packs/Day Years [...] Description 04/25/2025 8:20 AM CDT Office Visit [facility] [address] [facility] [address] [place] [address] Annalisa Christopher MD [address] [place] [address] documented as of this encounter Visit Diagnoses Diagnosis Nephrolithiasis Calculus of kidney documented in this encounter Care Teams Compensator Relationship Specialty Start Date End Date Annalisa Christopher MD [address] [place] [address] PCP - General 07/07/08 documented as of this encounter
--- OUTSIDE RECORDS SUMMARY | 2024-10-06 18:13 | XMS_ITS | Encounter Summary ---
Author Organization [facility] Address [address] [place] [address] Care Team Providers Care Caddy Name Role Phone Annalisa Christopher MD Primary Care Provider [phone] Reason for Visit * Reason Onset Date Comments Sinus Problem 06/12/2017 Encounter Details Date Type Department Care Team (Late st Contact Info) Description 06/12/2017 Telephone [facility] Primary Care - [address] [place] [address] Annalisa Christopher MD [address] [place] [address] [address] [place] [address] Sinus Problem Social History Tobacco [...] * Telephone Encounter - Emely Cuadra - 06/12/2017 9:11 AM CDT Spoke to pt * Telephone Encounter - Annalisa Christopher MD - 06/12/2017 8:42 AM CDT Z-elizabeth sent * Telephone Encounter - Rita Maier - 06/12/2017 8:35 AM CDT Sinus Infection Yellow green drainage Congestion Headache Ear discomfort Pressure No fever Cough at night, at times productive yellow Body aches Sx x 1wk ?? Taking zyrtec for about a wk w/o relief Asking for rx? documented in this encounter Plan of Treatment Upcoming Encounters Date Type Department Care Team (Late st Contact Info) Description 04/25/2025 8:20 AM CDT Office Visit [facility] Primary Care - [facility] [address] [facility] [address] [place] [address] Annalisa Christopher MD [address] [facility] [address] [place] [address] documented as of this encounter Visit Diagnoses Not on filedocumented in this encounter Additional Health Concerns Assessment Noted Time PHQ-9 Depression Total Score: 1 06/06/20 16 9:00 AM CDT documented as of this encounter Care Teams Caddy Relationship Specialty Start Date End Date Annalisa Christopher MD [address] [facility] [address] [place] [address] PCP - General 07/07/08 documented as of this encounter
--- OUTSIDE RECORDS SUMMARY | 2024-10-06 18:13 | XMS_ITS | Encounter Summary ---
Author Organization [facility] Address [address] [place] [address] Care Team Providers Care Saw Sharpener Name Role Phone Annalisa Christopher MD Primary Care Provider [phone] Reason for Visit * Reason Comments Medication Refill Encounter Details Date Type Department Care Team (Late Contact Info) Description 03/23/2021 Refill [facility] Primary Care - [address] [place] [address] Annalisa Christopher MD [address] [place] [address] [address] [place] [address] Mild intermittent asthma without complication [...] encounter Miscellaneous Notes * Telephone Encounter - Liset Arthur - 03/23/2021 11:51 AM CDT Last office visit 10/22/2020 Last refill 12/31/2020 Next office visit 10/11/2021 Dr. Christopher pt documented in this encounter Plan of Treatment Upcoming Encounters Date Type Department Care Team (Late st Contact Info) Description 04/25/2025 8:20 AM CDT Office Visit [facility] Primary Care - [facility] [address] [place] [address] Annalisa Christopher MD [address] [place] [address] documented as of this encounter Visit Diagnoses Diagnosis Mild intermittent asthma without complication Unspecified asthma documented in this encounter Care Teams Saw Sharpener Relationship Specialty Start Date End Date Annalisa Christopher MD [address] [place] [address] PCP - General 07/07/08 documented as of this encounter
--- OUTSIDE RECORDS SUMMARY | 2024-10-06 18:13 | XMS_ITS | Encounter Summary ---
Author Organization [facility] Address [address] [place] [address] Care Team Providers Care Purchasing And Claims Supervisor Name Role Phone Annalisa Christopher MD Primary Care Provider [phone] Reason for Visit * Reason Comments Medication Refill Encounter Details Date Type Department Care Team (Late st Contact Info) Description 07/30/[address] [place] [address] Annalisa Christopher MD [address] [place] [address] [address] [place] [address] Social History Tobacco Use Types [...] 04/25/2025 8:20 AM CDT Office Visit [facility] [address] [place] [address] [address] [place] [address] Annalisa Christopher MD [address] [place] [address] [address] [place] [address] documented as of this encounter Visit Diagnoses Not on filedocumented in this encounter Additional Health Concerns Assessment Noted Time PHQ-9 Depression Total Score: 1 06/06/20 16 9:00 AM CDT documented as of this encounter Care Teams Purchasing And Claims Supervisor Relationship Specialty Start Date End Date Annalisa Christopher MD [address] [place] [address] PCP - General 07/07/08 documented as of this encounter
--- OUTSIDE RECORDS SUMMARY | 2024-10-06 18:13 | XMS_ITS | Encounter Summary ---
Author Organization [facility] Address [address] [place] [address] Care Team Providers Care Tile Picker Name Role Phone Annalisa Christopher MD Primary Care Provider [phone] Encounter Details Date Type Department Care Team (Latest Contact Info) Description 10/22/2020 11:15 AM EQUIPMENT DETAILER - 10/22/2020 11:59 PM EQUIPMENT DETAILER Hospital Encounter [facility] [address] [place] [address] Annalisa Christopher MD [address] [place] [address] Discharge Disposition: Home or Self Care Social [...] COVID-19? No / Unsure 10/22/2020 9:45 AM EQUIPMENT DETAILER documented as of this encounter Medications at Time of Discharge Medication Sig Dispensed Refills Start Date End Date Peak Flow Meter DeviceIndications:Mild intermittent asthma without complication Dx asthma. 1 Device 03/29/2019 fluticasone (FLONASE) 50 mcg/spray [place], Suspension Administer 2 Sprays in each nostril daily. cetirizine-pseudoephed rine sr 12 hour (ZyrTEC-D) 5-120 mg tabletIndications:Vik rgic rhinitis due to pollen, unspecified rhinitis seasonality Take 1 Tablet by mouth 2 times daily. 60 Tablet 3 05/31/2017 diazePAM (VALIUM) 5 mg tabletIndications:PTSD (post-traumatic stress disorder) Take 1 Tablet (5 mg) by mouth 1 time daily as needed for Anxiety. 20 Tablet 0 06/06/2016 levonorgestreL (MIRENA) 20 mcg/24 hours (7 yrs) 52 mg IUD by Intrauterine route. promethazine (PHENERGAN) 25 mg tabletIndications:Migr harris without status migrainosus, not intractable, unspecified migraine type Take 1 Tablet (25 mg) by mouth every 6 hours as needed for Nausea/Emesis. 30 Tablet 10/22/2020 04/08/2022 Breo Ellipta 100-25 mcg/dose Disk with DeviceIndications:Mild intermittent asthma without complication INHALE 1 PUFF BY MOUTH EVERY DAY 60 Each 1 09/11/2020 11/02/2020 escitalopram oxalate (LEXAPRO) 10 mg tabletIndications:PTSD (post-traumatic stress disorder) TAKE 1 TABLET BY MOUTH EVERY DAY 30 Tablet 4 07/06/2020 11/24/2020 albuterol HFA 90 mcg inhalerIndications:Mil d intermittent asthma without complication TAKE 2 PUFFS EVERY 6 HOURS NEEDED FOR SHORTNESS OF BREATH.. 8.5 Gram 11 03/29/2019 05/09/2022 documented as of this encounter Plan of Treatment Upcoming Encounters Date Type Department Care Team (Late st Contact Info) Description 04/25/2025 8:20 AM CDT Office Visit [facility] Care - [address] [place] [address] Annalisa Christopher MD [facility] [address] [place] [address] documented as of this encounter Procedures Procedure Name Priority Date/Time Associated Diagnosis Comments URINALYSIS W/REFLEX MICROSCOPIC Routine 10/22/2020 3:33 PM EQUIPMENT DETAILER Wellness examination TSH REFLEXIVE Routine 10/22/2020 11:17 AM EQUIPMENT DETAILER Wellness examination CBC WITH DIFFERENTIAL Routine 10/22/2020 11:17 AM EQUIPMENT DETAILER Wellness examination VITAMIN D 25 HYDROXY Routine 10/22/2020 11:17 AM EQUIPMENT DETAILER Vitamin D deficiency HEMOGLOBIN A1C Routine 10/22/2020 11:17 AM EQUIPMENT DETAILER Wellness examination LIPID PANEL Routine 10/22/2020 11:17 AM EQUIPMENT DETAILER Wellness examination COMPREHENSIVE METABOLIC PANEL Routine 10/22/2020 11:17 AM EQUIPMENT DETAILER Wellness examination documented in this encounter Results * URINALYSIS WITH REFLEX MICROSCOPIC (10/22/2020 3:33 PM EQUIPMENT DETAILER) COLOR UA Yellow Pale to Dark Yellow 10/22/2020 10:10 PM EQUIPMENT DETAILER [facility] CLARITY UA Clear Clear 10/22/2020 10:10 PM EQUIPMENT DETAILER [facility] SPECIFIC GRAVITY UA 1.015 1.003 - 1.035 10/22/2020 10:10 PM EQUIPMENT DETAILER [facility] PH UA 7.0 5.0 - 8.0 10/22/2020 10:10 PM EQUIPMENT DETAILER [facility] LEUKOCYTE ESTERASE UA Negative Negative 10/22/2020 10:10 PM EQUIPMENT DETAILER [facility] NITRITE UA Negative Negative 10/22/2020 10:10 PM EQUIPMENT DETAILER [facility] PROTEIN UA Negative Negative 10/22/2020 10:10 PM EQUIPMENT DETAILER [facility] GLUCOSE UA Negative Negative 10/22/2020 10:10 PM EQUIPMENT DETAILER [facility] KETONES UA Negative Negative 10/22/2020 10:10 PM EQUIPMENT DETAILER [facility] UROBILINOGEN UA Normal <2.0 mg/dL 10:10 PM EQUIPMENT DETAILER [facility] BILIRUBIN UA Negative Negative 10/22/2020 10:10 PM EQUIPMENT DETAILER [facility] BLOOD UA Negative Negative 10/22/2020 10:10 PM EQUIPMENT DETAILER [facility] Urine URINE SPECIMEN OBTAINED BY CLEAN CATCH PROCEDURE / Unknown Collection / Unknown 10/22/2020 3:33 PM EQUIPMENT DETAILER 10/22/2020 3:33 PM EQUIPMENT DETAILER Annalisa Christopher MD URINE ORDERABLES Performing Organization Address City/[facility]/ZIP Co de Phone Number [facility]# [id number] [address] [place] [address] * TSH REFLEXIVE (10/22/2020 11:17 AM EQUIPMENT DETAILER) TSH 0.37 0.27 - 4.20 uIU/mL 10/22/2020 4:30 PM EQUIPMENT DETAILER [facility] Blood Venipuncture / Unknown 10/22/2020 11:17 AM EQUIPMENT DETAILER 10/22/2020 11:17 AM EQUIPMENT DETAILER Annalisa Christopher MD CHEMISTRY ORDERABLES Performing Organization Address City/[facility]/ZIP Co de Phone Number [facility] [employer] [facility]# [id number] [address] [place] [address] * HEMOGLOBIN A1C (10/22/2020 11:17 AM EQUIPMENT DETAILER) HEMOGLOBIN A1C 5.2 <5.7 % 10/22/2020 5:25 PM EQUIPMENT DETAILER [facility] EST. AVG GLUCOSE, A1C 103 mg/dL 10/22/2020 5:25 PM EQUIPMENT DETAILER [facility] Blood Venipuncture / Unknown 10/22/2020 11:17 AM EQUIPMENT DETAILER 10/22/2020 11:17 AM EQUIPMENT DETAILER Narrative [facility] - 10/22/2020 5:25 PM EQUIPMENT DETAILER HGB A1C INTERPRETATION NORMAL: ? <5.7% PRE-DIABETES: 5.7 - 6.4% DIABETES: ? 6.5% OR GREATER Annalisa Christopher MD CHEMISTRY ORDERABLES Performing Organization Address [facility] Co de Phone Number [facility]# [id number] [address] [place] [address] * VITAMIN D 25 HYDROXY (10/22/2020 11:17 AM EQUIPMENT DETAILER) Pathologist [facility] VITAMIN D TOTAL (25OH) 83 30 - 100 ng/mL 10/22/2020 4:18 PM [facility] [employer] [facility] Blood Venipuncture / Unknown 10/22/2020 11:17 AM EQUIPMENT DETAILER 10/22/2020 11:17 AM EQUIPMENT DETAILER Narrative [facility] [employer] [facility] - 10/22/2020 4:18 PM EQUIPMENT DETAILER Interpretive Data Chart: Deficient: ? 0 - 20 ng/mL Insufficient: ?21 - 29 ng/mL Sufficient: ?30 - 100 ng/mL Increased Risk of Hypercalciuria: ??>100 ng/ml Toxic: ? >150 ng/ml Annalisa Christopher MD CHEMISTRY ORDERABLES Performing Organization Address [facility] Co de Phone Number [facility] [employer] [facility] [id number] [address] [place] [address] * COMPREHENSIVE METABOLIC PANEL (10/22/2020 11:17 AM EQUIPMENT DETAILER) [facility] SODIUM 139 136 - 145 mmol/L 10/22/2020 4:17 PM [facility] [employer] [facility] POTASSIUM 4.2 3.5 - 5.0 mmol/L 10/22/2020 4:17 PM [facility] [employer] [facility] CHLORIDE 104 98 - 107 mmol/L 10/22/2020 4:17 PM [employer] [facility] CO2 26 22 - 29 mmol/L 10/22/2020 4:17 PM [employer] [facility] CALCIUM 9.5 8.6 - 10.2 mg/dL 10/22/2020 4:17 PM EQUIPMENT DETAILER [facility] BUN 10 6 - 20 mg/dL 10/22/2020 4:17 PM EQUIPMENT DETAILER [facility] CREATININE 0.87 0.51 - 0.95 mg/dL 10/22/2020 4:17 PM [employer] [facility] GLUCOSE 98 74 - 99 mg/dL 10/22/2020 4:17 PM [employer] [facility] TOTAL PROTEIN 7.3 6.7 - 8.6 g/dL 10/22/2020 4:17 PM [employer] [facility] ALBUMIN 4.6 3.5 - 5.2 g/dL 10/22/2020 4:17 PM [employer] [facility] BILIRUBIN TOTAL 0.3 0.3 - 1.2 mg/dL 10/22/2020 4:17 PM [employer] [facility] ALKALINE PHOSPHATASE 88 35 - 104 U/L 10/22/2020 4:17 PM [employer] [facility] AST 17 <33 U/L 10/22/2020 4:17 PM [employer] [facility] ALT 23 <34 U/L 10/22/2020 4:17 PM [employer] [facility] GFR >60 >=60 mL/min/1.7 3 sq meter 10/22/2020 4:17 PM [employer] [facility] Comment: eGFR has not been validated for [...] mL/min/1.7 3 sq meter 10/22/2020 4:17 PM [facility] ANION GAP 9 8 - 16 mmol/L 10/22/2020 4:17 PM [facility] [employer] [facility] Blood Venipuncture / Unknown 10/22/2020 11:17 AM EQUIPMENT DETAILER 10/22/2020 11:17 AM [facility]ATORY [facility] - 10/22/2020 4:17 PM [facility] Samples containing indocyanine green cause interferences on Total and/or Direct Bilirubin and must not be measured. Annalisa Christopher MD CHEMISTRY ORDERABLES [facility] [employer] [facility]# [id number] [address] [place] [address] * (ABNORMAL) CBC WITH DIFFERENTIAL (10/22/2020 11:17 AM EQUIPMENT DETAILER) WBC 5.4 4.0 - 9.8 K/uL 10/22/2020 4:05 PM [facility] RBC 5.14(H) 3.90 - 4.90 M/uL 10/22/2020 4:05 PM [facility] [employer] [facility] HEMOGLOBIN 15.0(H) 11.8 - 14.8 g/dL 10/22/2020 4:05 PM [facility] [employer] [facility] HEMATOCRIT 47.6(H) 35.5 - 44.0 % 10/22/2020 4:05 PM [facility] [employer] [facility] MCV 92.6 82.0 - 99.0 fL 10/22/2020 4:05 PM [facility] [employer] [facility] MCH 29.2 27.2 - 32.6 pg 10/22/2020 4:05 PM [facility] [employer] [facility] MCHC 31.5 31.5 - 35.5 g/dL 10/22/2020 4:05 PM [facility] [employer] [facility] RDW 12.3 11.5 - 14.5 % 10/22/2020 4:05 PM [facility] RDW-STDEV 42.1 37.1 - 48.7 fL 10/22/2020 4:05 PM [facility] [employer] [facility] - . [facility] PLATELETS 295 140 - 350 K/uL 10/22/2020 4:05 PM [facility] [employer] [facility] - [facility] MPV 10.5 9.3 - 12.4 fL 10/22/2020 4:05 PM [facility] [facility] - . [facility] NEUTROPHILS 60 % 10/22/2020 4:05 PM [facility] [facility] LYMPHOCYTES 31 % 10/22/2020 4:05 PM [facility] [facility] MONOCYTES 7 % 10/22/2020 4:05 PM EQUIPMENT DETAILER [facility] EOSINOPHILS 1 % 10/22/2020 4:05 PM [facility] [facility] BASOPHILS 1 % 10/22/2020 4:05 PM [facility] [employer] [facility] - . [facility] IMMATURE GRANULOCYTES 0 % 10/22/2020 4:05 PM [facility] [facility] NEUTROPHIL ABSOLUTE 3.26 1.90 - 7.00 K/uL 10/22/2020 4:05 PM [facility] [employer] [facility] - . [facility] LYMPHOCYTE ABSOLUTE 1.67 0.70 - 4.50 K/uL 10/22/2020 4:05 PM [facility] [employer] [facility] MONOCYTE ABSOLUTE 0.40 0.10 - 1.30 K/uL 10/22/2020 4:05 PM [facility] [employer] [facility] EOSINOPHIL ABSOLUTE 0.04 0.00 - 0.70 K/uL 10/22/2020 4:05 PM [facility] [employer] [facility] BASOPHILS ABSOLUTE 0.03 0.00 - 0.20 K/uL 10/22/2020 4:05 PM [facility] [employer] [facility] - . [facility] IMMATURE GRANULOCYTES ABSOLUTE 0.01 0.00 - 0.03 K/uL 10/22/2020 4:05 PM [facility] [employer] [facility] . [facility] Blood Venipuncture / Unknown 10/22/2020 11:17 AM EQUIPMENT DETAILER 10/22/2020 11:17 AM EQUIPMENT DETAILER Annalisa Christopher MD HEMATOLOGY ORDERABLE S [email or web address] [facility] CLIA# [id number] [address] [place] [place] [address] * (ABNORMAL) LIPID PANEL (10/22/2020 11:17 AM EQUIPMENT DETAILER) CHOLESTEROL 192 <200 mg/dL 10/22/2020 4:17 PM [facility] [employer] [facility] TRIGLYCERIDE 55 <150 mg/dL 10/22/2020 4:17 PM [facility] [employer] [facility] HDL 49 40 - 59 mg/dL 10/22/2020 4:17 PM [facility] [employer] [facility] LDL CALCULATED 132(H) <100 mg/dL 10/22/2020 4:17 PM [facility] [employer] [facility] NON-HDL CHOLESTEROL 143(H) <130 mg/dL 10/22/2020 4:17 PM [facility] [employer] [facility] Blood Venipuncture / Unknown 10/22/2020 11:17 AM EQUIPMENT DETAILER 10/22/2020 11:17 AM EQUIPMENT DETAILER Narrative [email or web address] [facility] - 10/22/2020 4:17 PM EQUIPMENT DETAILER TOTAL CHOLESTEROL ??mg/dL ??Desirable <200 ??Borderline high [...] (NCEP/AMA) . Annalisa Christopher MD CHEMISTRY ORDERABLES [facility]# [id number] [address] [place] [address] documented in this encounter Visit Diagnoses Diagnosis Wellness examination Vitamin D deficiency Unspecified vitamin D deficiency documented in this encounter Care Teams Tile Picker Relationship Specialty Start Date End Date Annalisa Christopher MD [address] [place] [address] PCP - General 07/07/08 documented as of this encounter
--- OUTSIDE RECORDS SUMMARY | 2024-10-06 18:13 | XMS_ITS | Encounter Summary ---
Author Organization [facility] Address [address] [place] [address] Care Team Providers Care Manager Hardware Name Role Phone Annalisa Christopher MD Primary Care Provider [phone] Reason for Visit * Reason Comments Med Refill Encounter Details Date Type Department Care Team (Late st Contact Info) Description 09/05/[address] [place] [address] Annalisa Christopher MD [address] [place] [address] [address] [place] [address] PTSD (post-traumatic stress disorder) Social [...] Description 04/25/2025 8:20 AM CDT Office Visit [facility] [address] [place] [address] [address] [place] [address] Annalisa Christopher MD [address] [place] [address] [address] [place] [address] documented as of this encounter Visit Diagnoses Diagnosis PTSD (post-traumatic stress disorder) Posttraumatic stress disorder documented in this encounter Care Teams Manager Hardware Relationship Specialty Start Date End Date Annalisa Christopher MD [address] [place] [address] PCP - General 07/07/08 documented as of this encounter
--- OUTSIDE RECORDS SUMMARY | 2024-10-06 18:13 | XMS_ITS | Encounter Summary ---
Author Organization [facility] Address [address] [place] [address] Care Team Providers Care Farm Management Adviser Name Role Phone Annalisa Christopher MD Primary Care Provider [phone] Reason for Visit * Reason Onset Date Comments Results 11/13/2018 Encounter Details Date Type Department Care Team (Late st Contact Info) Description 11/13/2018 Telephone [facility] Primary Care - [address] [place] [address] Annalisa Christopher MD [address] [place] [address] [address] [place] [address] Results Social History Tobacco Use Types Packs/Day [...] Miscellaneous Notes * Telephone Encounter - Josefina Morales - 11/13/2018 1:28 PM CST Letter sent SUPPORT TECHNICIAN * Telephone Encounter - Josefina Morales - 11/13/2018 1:28 PM CST ----- Message from Annalisa Christopher MD sent at 11/13/2018 8:56 AM LIFE SUPPORT TECHNICIAN ----- Please remind patient to view the results on the [facility] SUPPORT TECHNICIAN documented in this encounter Plan of Treatment Upcoming Encounters Date Type Department Care Team (Late st Contact Info) Description 04/25/2025 8:20 AM CDT Office Visit [facility] - [facility] [address] [facility] [address] [place] [phone] Annalisa Christopher MD [address] [facility] [address] [place] [address] documented as of this encounter Visit Diagnoses Not on filedocumented in this encounter Additional Health Concerns Assessment Noted Time PHQ-9 Depression Total Score: 1 06/06/20 16 9:00 AM CDT documented as of this encounter Care Teams Farm Management Adviser Relationship Specialty Start Date End Date Annalisa Christopher MD [address] [facility] [address] [place] [address] PCP - General 07/07/08 documented as of this encounter
--- OUTSIDE RECORDS SUMMARY | 2024-10-06 18:13 | XMS_ITS | Encounter Summary ---
Author Organization [facility] Address [address] [place] [address] Care Team Providers Care Software Database Architect Name Role Phone Annalisa Christopher MD Primary Care Provider [phone] Reason for Visit * Reason Comments Medication Refill Encounter Details Date Type Department Care Team (Late st Contact Info) Description 06/29/2018 Telephone [facility] Primary Care - [address] [place] [address] Annalisa Christopher MD [address] [place] [address] [address] [place] [address] Medication Refill Social History Tobacco Use [...] * Telephone Encounter - Alva Alvares - 07/02/2018 11:48 AM CDT Spoke w pt appt made * Telephone Encounter - Fabiana Finnegan LPN - 06/29/2018 8:28 AM CDT Set up appt not seen since 05/2017 documented in this encounter Plan of Treatment Upcoming Encounters Date Type Department Care Team (Late st Contact Info) Description 04/25/2025 8:20 AM CDT Office Visit [facility] Care - [facility] [address] [place] [address] Annalisa Christopher MD [address] [place] [address] documented as of this encounter Visit Diagnoses Not on filedocumented in this encounter Additional Health Concerns Assessment Noted Time PHQ-9 Depression Total Score: 1 06/06/20 16 9:00 AM CDT documented as of this encounter Care Teams Software Database Architect Relationship Specialty Start Date End Date Annalisa Christopher MD [address] [place] [address] PCP - General 07/07/08 documented as of this encounter
--- OUTSIDE RECORDS SUMMARY | 2024-10-06 18:13 | XMS_ITS | Encounter Summary ---
Author Organization [facility] Address [address] [place] [address] Care Team Providers Care Regional Marketing Director Name Role Phone Annalisa Christopher MD Primary Care Provider [phone] Reason for Visit * Auth/Cert Specialty Diagnoses / Procedures Referred By Contac t Referred To Contact Laboratory [facility] [place] [address] [facility] [address] [place] [address] Referral ID Status Reason Start Date Expiration Date Visits Re quested Visits Authorized [id number] 1 1 Encounter Details Date Type Department Care Team (Latest Contact Info) Description 10/31/2018 10:35 AM ELECTRICAL TIMING DEVICE CALIBRATOR - 10/31/2018 11:59 PM [facility] Hospital Encounter [facility] Laboratory Services [place] [address] [place] [address] Annalisa Christopher MD [address] [place] [address] [address] [place] [address] Discharge Disposition: Home or Self [...] on file documented as of this encounter Medications at Time of Discharge Medication Sig Dispensed Refills Start Date End Date fluticasone (FLONASE) 50 mcg/spray [place], Suspension Administer 2 Sprays in each nostril [...] yrs) 52 mg IUD by Intrauterine route. escitalopram oxalate (LEXAPRO) 10 mg tabletIndications:PTS D (post-traumatic stress disorder) TAKE 1 TABLET BY MOUTH EVERY DAY. 30 Tablet 11 08/06/2018 08/28/2019 PROAIR HFA 90 mcg/actuation inhalerIndications:Co ugh TAKE 2 PUFFS EVERY 6 HOURS NEEDED FOR SHORTNESS OF BREATH. 8.5 Gram 03/07/2018 03/29/2019 documented as of this encounter Plan of Treatment Upcoming Encounters Date Type Department Care Team (Late st Contact Info) Description 04/25/2025 8:20 AM CDT Office Visit [facility] Primary Care - [address] [place] [address] Annalisa Christopher MD [address] [place] [address] [place] [address] documented as of this encounter Procedures Procedure Name Priority Date/Time Associated Diagnosis Comments CBC WITH DIFFERENTIAL Routine 10/31/2018 10:52 AM ELECTRICAL TIMING DEVICE CALIBRATOR Preventative health care VITAMIN D 25 HYDROXY Routine 10/31/2018 10:52 AM ELECTRICAL TIMING DEVICE CALIBRATOR [facility] URINALYSIS W/REFLEX MICROSCOPIC Routine 10/31/2018 10:52 AM ELECTRICAL TIMING DEVICE CALIBRATOR [facility] TSH Routine 10/31/2018 10:52 AM ELECTRICAL TIMING DEVICE CALIBRATOR [facility] HEMOGLOBIN A1C Routine 10/31/2018 10:52 AM ELECTRICAL TIMING DEVICE CALIBRATOR Preventative [facility] care LIPID PANEL Routine 10/31/2018 10:52 AM ELECTRICAL TIMING DEVICE CALIBRATOR Prevent[facility] care COMPREHENSIVE METABOLIC PANEL Routine 10/31/2018 10:52 AM ELECTRICAL TIMING DEVICE CALIBRATOR [facility] documented in this encounter Results * (ABNORMAL) URINALYSIS WITH REFLEX MICROSCOPIC (10/31/2018 10:52 AM ELECTRICAL TIMING DEVICE CALIBRATOR) COLOR UA Yellow Pale to Dark Yellow 10/31/2018 1:54 PM ELECTRICAL TIMING DEVICE CALIBRATOR [facility] CLARITY UA Clear Clear 10/31/2018 1:54 PM ELECTRICAL TIMING DEVICE CALIBRATOR [facility] SPECIFIC GRAVITY UA 1.013 1.003 - 1.035 10/31/2018 1:54 PM ELECTRICAL TIMING DEVICE CALIBRATOR [facility] PH UA 6.0 5.0 - 8.0 10/31/2018 1:54 PM ELECTRICAL TIMING DEVICE CALIBRATOR [facility] LEUKOCYTE ESTERASE UA Negative Negative 10/31/2018 1:54 PM ELECTRICAL TIMING DEVICE CALIBRATOR [facility] NITRITE UA Negative Negative 10/31/2018 1:54 PM ELECTRICAL TIMING DEVICE CALIBRATOR [facility] PROTEIN UA Negative Negative 10/31/2018 1:54 PM ELECTRICAL TIMING DEVICE CALIBRATOR [facility] GLUCOSE UA Negative Negative 10/31/2018 1:54 PM ELECTRICAL TIMING DEVICE CALIBRATOR [facility] KETONES UA Negative Negative 10/31/2018 1:54 PM ELECTRICAL TIMING DEVICE CALIBRATOR [facility] UROBILINOGEN UA Normal <2.0 mg/dL 9 1:54 PM ELECTRICAL TIMING DEVICE CALIBRATOR [facility] BILIRUBIN UA Negative Negative 10/31/2018 1:54 PM ELECTRICAL TIMING DEVICE CALIBRATOR [facility] BLOOD UA 1+(A) Negative 10/31/2018 1:54 PM ELECTRICAL TIMING DEVICE CALIBRATOR [facility] WBC UA 0-2 0 - 2 /hpf 10/31/2018 1:54 PM ELECTRICAL TIMING DEVICE CALIBRATOR [facility] - [facility] RBC UA 0-2 0 - 2 /hpf 10/31/2018 1:54 PM ELECTRICAL TIMING DEVICE CALIBRATOR [facility] - . [facility] BACTERIA UA Negative Negative /hpf 10/31/2018 1:54 PM ELECTRICAL TIMING DEVICE CALIBRATOR [facility] Urine URINE SPECIMEN OBTAINED BY CLEAN CATCH PROCEDURE / Unknown Collection / Unknown 10/31/2018 10:52 AM ELECTRICAL TIMING DEVICE CALIBRATOR 10/31/2018 11:20 AM ELECTRICAL TIMING DEVICE CALIBRATOR Annalisa Christopher MD URINE ORDERABLES Performing Organization Address [facility] de Phone Number [facility] [employer] [facility]# [id number] [address] [place] [address] * HEMOGLOBIN A1C (10/31/2018 10:52 AM ELECTRICAL TIMING DEVICE CALIBRATOR) HEMOGLOBIN A1C 5.4 <5.7 % 10/31/2018 5:13 PM ELECTRICAL TIMING DEVICE CALIBRATOR [facility] [employer] [facility] EST. AVG GLUCOSE, A1C 108 mg/dL 10/31/2018 5:13 PM ELECTRICAL TIMING DEVICE CALIBRATOR [facility] [employer] [facility] Blood Venipuncture / Unknown 10/31/2018 10:52 AM ELECTRICAL TIMING DEVICE CALIBRATOR 10/31/2018 10:52 AM ELECTRICAL TIMING DEVICE CALIBRATOR Narrative [facility] [employer] [facility] - 10/31/2018 5:13 PM ELECTRICAL TIMING DEVICE CALIBRATOR HGB A1C INTERPRETATION NORMAL: ? <5.7% PRE-DIABETES: 5.7 - 6.4% DIABETES: ? 6.5% OR GREATER Annalisa Christopher MD CHEMISTRY ORDERABLES Performing Organization Address [facility] de Phone Number [facility] [employer] [facility]# [id number] [address] [place] [address] * VITAMIN D 25 HYDROXY (10/31/2018 10:52 AM ELECTRICAL TIMING DEVICE CALIBRATOR) VITAMIN D TOTAL (25OH) 56 30 - 100 ng/mL 10/31/2018 5:02 PM ELECTRICAL TIMING DEVICE CALIBRATOR [facility] [employer] [facility] Blood Venipuncture / Unknown 10/31/2018 10:52 AM ELECTRICAL TIMING DEVICE CALIBRATOR 10/31/2018 10:52 AM ELECTRICAL TIMING DEVICE CALIBRATOR [employer] [facility] [employer] [facility] - 10/31/2018 5:02 PM ELECTRICAL TIMING DEVICE CALIBRATOR Interpretive Data Chart: Deficient: 0 - 20 ng/mL Insufficient: 21 - 29 ng/mL Sufficient: 30 - 100 ng/mL Increased Risk of Hypercalciuria: >100 ng/mL Toxic: >150 ng/mL Annalisa Christopher MD CHEMISTRY ORDERABLES [facility] [employer] [facility]# [id number] [address] [place] [address] * TSH (10/31/2018 10:52 AM ELECTRICAL TIMING DEVICE CALIBRATOR) Pathologist [facility] TSH 0.68 0.27 - 4.20 uIU/mL 10/31/2018 3:47 PM ELECTRICAL TIMING DEVICE CALIBRATOR [facility] Blood Venipuncture / Unknown 10/31/2018 10:52 AM ELECTRICAL TIMING DEVICE CALIBRATOR 10/31/2018 10:52 AM ELECTRICAL TIMING DEVICE CALIBRATOR Annalisa Christopher MD CHEMISTRY ORDERABLES Performing Organization Address City/[facility]/ZIP Co de Phone Number [facility]# [id number] [address] [place] [address] * (ABNORMAL) CBC WITH DIFFERENTIAL (10/31/2018 10:52 AM ELECTRICAL TIMING DEVICE CALIBRATOR) [facility] WBC 5.0 4.0 - 9.8 K/uL 10/31/2018 1:50 PM ELECTRICAL TIMING DEVICE CALIBRATOR [facility] RBC 4.90 3.90 - 4.90 M/uL 10/31/2018 1:50 PM ELECTRICAL TIMING DEVICE CALIBRATOR [facility] HEMOGLOBIN 14.4 11.8 - 14.8 g/dL 10/31/2018 1:50 PM ELECTRICAL TIMING DEVICE CALIBRATOR [facility] HEMATOCRIT 44.5(H) 35.5 - 44.0 % 10/31/2018 1:50 PM ELECTRICAL TIMING DEVICE CALIBRATOR [facility] MCV 90.8 82.0 - 99.0 fL 10/31/2018 1:50 PM ELECTRICAL TIMING DEVICE CALIBRATOR [facility] MCH 29.4 27.2 - 32.6 pg 10/31/2018 1:50 PM ELECTRICAL TIMING DEVICE CALIBRATOR [facility] MCHC 32.4 31.5 - 35.5 g/dL 10/31/2018 1:50 PM ELECTRICAL TIMING DEVICE CALIBRATOR [facility] RDW 12.3 11.5 - 14.5 % 10/31/2018 1:50 PM [employer] [facility] - [facility] RDW-STDEV 41.3 37.1 - 48.7 fL 10/31/2018 1:50 PM ELECTRICAL TIMING DEVICE CALIBRATOR [facility] PLATELETS 275 140 - 350 K/uL 10/31/2018 1:50 PM [employer] [facility] MPV 9.6 9.3 - 12.4 fL 10/31/2018 1:50 PM [employer] [facility] NEUTROPHILS 51 % 10/31/2018 1:50 PM [employer] [facility] LYMPHOCYTES 38 % 10/31/2018 1:50 PM [employer] [facility] MONOCYTES 8 % 10/31/2018 1:50 PM [employer] [facility] EOSINOPHILS 2 % 10/31/2018 1:50 PM [employer] [facility] BASOPHILS 1 % 10/31/2018 1:50 PM [employer] [facility] IMMATURE GRANULOCYTES 0 % 10/31/2018 1:50 PM [employer] [facility] NEUTROPHIL ABSOLUTE 2.55 1.90 - 7.00 K/uL 10/31/2018 1:50 PM [employer] [facility] LYMPHOCYTE ABSOLUTE 1.92 0.70 - 4.50 K/uL 10/31/2018 1:50 PM [employer] [facility] MONOCYTE ABSOLUTE 0.42 0.10 - 1.30 K/uL 10/31/2018 1:50 PM [employer] [facility] EOSINOPHIL ABSOLUTE 0.09 0.00 - 0.70 K/uL 10/31/2018 1:50 PM [employer] [facility] BASOPHILS ABSOLUTE 0.03 0.00 - 0.20 K/uL 10/31/2018 1:50 PM [employer] [facility] IMMATURE GRANULOCYTES ABSOLUTE 0.01 0.00 - 0.03 K/uL 10/31/2018 1:50 PM [employer] [facility] Blood Venipuncture / Unknown 10/31/2018 10:52 AM ELECTRICAL TIMING DEVICE CALIBRATOR 10/31/2018 10:52 AM ELECTRICAL TIMING DEVICE CALIBRATOR Annalisa Christopher MD HEMATOLOGY ORDERABLE S [facility] CLIA# [id number] [place] [place] [place] [address] * (ABNORMAL) COMPREHENSIVE METABOLIC PANEL (10/31/2018 10:52 AM ELECTRICAL TIMING DEVICE CALIBRATOR) SODIUM 138 136 - 145 mmol/L 10/31/2018 3:42 PM [facility] [employer] [facility] - [facility] POTASSIUM 4.3 3.5 - 5.0 mmol/L 10/31/2018 3:42 PM [facility] [employer] CHLORIDE 103 98 - 107 mmol/L 10/31/2018 3:42 PM [facility] [employer] CO2 23 22 - 29 mmol/L 10/31/2018 3:42 PM [facility] CALCIUM 9.6 8.6 - 10.2 mg/dL 10/31/2018 3:42 PM [facility] BUN 10 6 - 20 mg/dL 10/31/2018 3:42 PM [facility] CREATININE 0.73 0.51 - 0.95 mg/dL 10/31/2018 3:42 PM [facility] [employer] [facility] GLUCOSE 93 74 - 99 mg/dL 10/31/2018 3:42 PM [facility] TOTAL PROTEIN 6.9 6.7 - 8.6 g/dL 10/31/2018 3:42 PM [facility] ALBUMIN 4.3 3.5 - 5.2 g/dL 10/31/2018 3:42 PM [facility] [employer] [facility] BILIRUBIN TOTAL 0.4 0.3 - 1.2 mg/dL 10/31/2018 3:42 PM [facility] [employer] [facility] ALKALINE PHOSPHATASE 95 35 - 104 U/L 10/31/2018 3:42 PM [facility] AST 36(H) <33 U/L 10/31/2018 3:42 PM [facility] ALT 63(H) <34 U/L 10/31/2018 3:42 PM [facility] GFR >60 >=60 mL/min/1.7 3 sq meter 10/31/2018 3:42 PM [facility] [employer] [facility] Comment: eGFR has not been validated for [...] mL/min/1.7 3 sq meter 10/31/2018 3:42 PM [facility] ANION GAP 12 8 - 16 mmol/L 10/31/2018 3:42 PM [facility] Blood Venipuncture / Unknown 10/31/2018 10:52 AM ELECTRICAL TIMING DEVICE CALIBRATOR 10/31/2018 10:52 AM [facility] [employer] [facility] - 10/31/2018 3:42 PM [facility] Samples containing indocyanine green cause interferences on Total and/or Direct Bilirubin and must not be measured. Annalisa Christopher MD CHEMISTRY ORDERABLES [facility]# [id number] [address] [place] [address] * (ABNORMAL) LIPID PANEL (10/31/2018 10:52 AM ELECTRICAL TIMING DEVICE CALIBRATOR) CHOLESTEROL 208(H) <200 mg/dL 10/31/2018 3:42 PM [facility] [employer] [facility] TRIGLYCERIDE 97 <150 mg/dL 10/31/2018 3:42 PM [facility] [employer] [facility] HDL 49 40 - 59 mg/dL 10/31/2018 3:42 PM [facility] LDL CALCULATED 140(H) <100 mg/dL 10/31/2018 3:42 PM [facility] [employer] [facility] NON-HDL CHOLESTEROL 159(H) <130 mg/dL 10/31/2018 3:42 PM ELECTRICAL TIMING DEVICE CALIBRATOR [facility] Blood Venipuncture / Unknown 10/31/2018 10:52 AM ELECTRICAL TIMING DEVICE CALIBRATOR 10/31/2018 10:52 AM ELECTRICAL TIMING DEVICE CALIBRATOR Narrative [facility] - 10/31/2018 3:42 PM ELECTRICAL TIMING DEVICE CALIBRATOR TOTAL CHOLESTEROL ??mg/dL ??Desirable <200 ??Borderline high [...] Panels (NCEP/AMA) Annalisa Christopher MD CHEMISTRY ORDERABLES [facility]# [id number] [address] [place] [place] [address] documented in this encounter Visit Diagnoses Diagnosis Preventative health care Routine general medical examination at a health care facility documented in this encounter Additional Health Concerns Assessment Noted Time PHQ-9 Depression Total Score: 1 06/06/20 16 9:00 AM CDT documented as of this encounter Care Teams Regional Marketing Director Relationship Specialty Start Date End Date Annalisa Christopher MD [address] [facility] [address] [place] [address] PCP - General 07/07/08 documented as of this encounter
--- OUTSIDE RECORDS SUMMARY | 2024-10-06 18:13 | XMS_ITS | Encounter Summary ---
Author Organization [facility] Address [address] [place] [address] Care Team Providers Care Rn Imaging Name Role Phone Annalisa Christopher MD Primary Care Provider [phone] Reason for Visit * Reason Comments Medication Refill Encounter Details Date Type Department Care Team (Late st Contact Info) Description 03/06/2018 Refill [facility] [address] [place] [address] [address] [place] [address] Mery Villanueva, [facility] [address] [facility] [address] [place] [address] Cough Social History Tobacco Use Types Packs/Day Years [...] Office Visit [facility] [address] [facility] [address] [place] [address] Annalisa Christopher MD [address] [place] [address] [address] [place] [address] documented as of this encounter Visit Diagnoses Diagnosis Cough documented in this encounter Additional Health Concerns Assessment Noted Time PHQ-9 Depression Total Score: 1 06/06/20 16 9:00 AM CDT documented as of this encounter Care Teams Rn Imaging Relationship Specialty Start Date End Date Annalisa Christopher MD [address] [place] [address] PCP - General 07/07/08 documented as of this encounter
--- OUTSIDE RECORDS SUMMARY | 2024-10-06 18:13 | XMS_ITS | Encounter Summary ---
Author Organization [facility] Address [address] [place] [address] Care Team Providers Care Assistant Wrestling Coach Name Role Phone Annalisa Christopher MD Primary Care Provider [phone] Reason for Visit * Reason Comments Medication Refill Encounter Details Date Type Department Care Team (Late st Contact Info) Description 01/28/[address] [place] [address] Annalisa Christopher MD [address] [place] [address] [address] [place] [address] Social History Tobacco Use Types [...] Description 04/25/2025 8:20 AM CDT Office Visit [facility] [address] [place] [address] [address] [place] [address] Annalisa Christopher MD [address] [place] [address] [address] [place] [address] documented as of this encounter Visit Diagnoses Not on filedocumented in this encounter Additional Health Concerns Assessment Noted Time PHQ-9 Depression Total Score: 1 06/06/20 16 9:00 AM CDT documented as of this encounter Care Teams Assistant Wrestling Coach Relationship Specialty Start Date End Date Annalisa Christopher MD [address] [place] [address] PCP - General 07/07/08 documented as of this encounter
--- OUTSIDE RECORDS SUMMARY | 2024-10-06 18:14 | XMS_ITS | Encounter Summary ---
Author Organization [facility] Address [address] [place] [address] Care Team Providers Care Sander Machine Name Role Phone Annalisa Christopher MD Primary Care Provider [phone] Reason for Visit * Reason Comments Sinus Infection Encounter Details Date Type Department Care Team (Latest Contact Info) Description 12/17/2015 11:30 AM CDT Office Visit [facility] Primary Care - [address] [place] [address] Annalisa Christopher MD [address] [place] [address] [address] [place] [address] Acute recurrent maxillary sinusitis (Primary Dx); Sore throat; Recurrent acute serous otitis media of both ears; Acute bacterial conjunctivitis of both eyes Social History Tobacco Use Types Packs/Day Years [...] Sign Reading Time Taken Comments Blood Pressure 121/62 12/17/2015 11:26 AM CDT Pulse - - Temperature - - Respiratory Rate - - Oxygen Saturation - - Inhaled Oxygen Concentration - - Weight 70.8 kg (156 lb) 12/17/2015 11:26 AM CDT Height - - Body Mass Index 24.43 07/12/2015 3:32 PM CDT documented in this encounter Progress Notes * Annalisa Christopher MD - 12/20/2015 1:45 PM CDT HISTORY OF PRESENT ILLNESS Fabiana Pryor, a 40 y.o. female presents with a Chief Complaint of Sinus Infection Subjective HPI Fabiana Pryor is a 40 y.o. female presenting with Ear pain and Sore throat and congestion x 2 weeks . Had Rx for Amox 12/07 but she feels no better REVIEW OF SYSTEMS Review of Systems Constitutional: Positive for fatigue. Negative for fever and chills. HENT: Positive for congestion, ear pain, postnasal drip, sinus pressure and sore throat. Respiratory: Negative for cough, shortness of breath and wheezing. Cardiovascular: Negative for chest pain, palpitations and leg swelling. Gastrointestinal: Negative for abdominal pain. Objective PHYSICAL EXAM BP 121/62 mmHg Wt 70.761 kg (156 lb) Physical Exam Constitutional: She is oriented to person, place, and time. No distress. HENT: Head: Normocephalic and atraumatic. Right Ear: External ear normal. A middle ear effusion is present. Left Ear: External ear normal. A middle ear effusion is present. Nose: Mucosal edema and rhinorrhea present. Right sinus exhibits maxillary sinus tenderness. Left sinus exhibits maxillary sinus tenderness. Mouth/Throat: No oropharyngeal exudate. Eyes: EOM are normal. Pupils are equal, round, and reactive to light. No scleral icterus. Neck: Normal range of motion. Neck supple. No JVD present. Pulmonary/Chest: Effort normal. No respiratory distress. She has no wheezes. She has no rales. Lymphadenopathy: She has no cervical adenopathy. Neurological: She is alert and oriented to person, place, and time. Skin: Skin is warm and dry. She is not diaphoretic. Assessment ASSESSMENT and PLAN: ICD-9-CM ICD-10-CM 1. Acute recurrent maxillary sinusitis 461.0 J01.01 XR SINUSES 3+ VW cephALEXin (KEFLEX) 500 mg capsule 2. Sore throat 462 J02.9 POC RAPID STREP A 3. Recurrent acute serous otitis media of both ears 381.01 H65.06 methylPREDNISolone (MEDROL DOSPACK) 4 mg Tablets, Dose Pack 4. Acute bacterial conjunctivitis of both eyes 372.03 H10.023 mtovsmor-qxzcwcpzr-gkhyzmembhulbz (CORTISPORIN) 3.5-10,000-10 mg-unit-mg/mL suspension * Josefina Morales - 12/17/2015 11:26 AM CDT Upper res Ear pain Sinus coming out the eye documented in this encounter Plan of Treatment Upcoming Encounters Date Type Department Care Team (Late st Contact Info) Description 04/25/2025 8:20 AM CDT Office Visit [facility] Primary Care - [facility] [address] [place] [address] Annalisa Christopher MD [address] [place] [address] documented as of this encounter Procedures Procedure Name Priority Date/Time Associated Diagnosis Comments POC RAPID STREP A ANTIGEN Routine 12/22/2015 9:37 AM CDT Sore throat documented in this encounter Results * POC RAPID STREP A (12/22/2015 9:37 AM CDT) RAPID STREP Negative Negative [facility] Specimen from throat (specimen) 12/22/2015 9:37 AM CDT Annalisa Christopher MD POINT OF CARE TESTIN [facility] * XR SINUSES 3+ VW (12/17/2015 12:36 PM CDT) Anatomical Region Laterality Modality Head Computed Radiogr aphy 12/17/2015 12:3 7 PM CDT Impressions 12/17/2015 4:22 PM CDT IMPRESSION: 1. Normal radiographs of the sinuses. 2. No air-fluid levels identified. Narrative 12/17/2015 4:22 PM CDT XR SINUSES 3+ VW DATE: 12/17/2015 12:36 PM HISTORY: Acute recurrent maxillary sinusitis TECHNIQUE: ??Four views of the sinuses COMPARISON: None FINDINGS: The visualized paranasal sinuses are clear clear the frontal and maxillary sinuses. No air-fluid levels are visualized. The mastoid air cells appear clear. No aggressive osseous lesions are identified. No acute abnormality visualized. Procedure Note Duran Smith MD - 12/17/2015 XR SINUSES 3+ VW DATE: 12/17/2015 12:36 PM HISTORY: Acute recurrent maxillary sinusitis TECHNIQUE: Four views of the sinuses COMPARISON: None FINDINGS: The visualized paranasal sinuses are clear clear the frontal and maxillary sinuses. No air-fluid levels are visualized. The mastoid air cells appear clear. No aggressive osseous lesions are identified. No acute abnormality visualized. IMPRESSION IMPRESSION: 1. Normal radiographs of the sinuses. 2. No air-fluid levels identified. Annalisa Christopher MD DIAGNOSTIC IMAGING O RDERABLES documented in this encounter Visit Diagnoses Diagnosis Acute recurrent maxillary sinusitis- Primary Acute maxillary sinusitis Sore throat Acute pharyngitis Recurrent acute serous otitis media of both ears Acute serous otitis media Acute bacterial conjunctivitis of both eyes Acute recurrent maxillary sinusitis Acute maxillary sinusitis documented in this encounter Care Teams Sander Machine Relationship Specialty Start Date End Date Annalisa Christopher MD [address] [address] PCP - General 07/07/08 documented as of this encounter
--- OUTSIDE RECORDS SUMMARY | 2024-10-06 18:14 | XMS_ITS | Encounter Summary ---
Author Organization [facility] Address [address] [place] [address] Care Team Providers Care Sand Cleaning Machine Operator Name Role Phone Annalisa Christopher MD Primary Care Provider [phone] Encounter Details Date Type Department Care Team (Late st Contact Info) Description 06/06/2016 Abstract [facility] - [address] [place] [address] Annalisa Christopher MD [address] [place] [address] [address] [place] [address] Social History Tobacco Use Types [...] Description 04/25/2025 8:20 AM CDT Office Visit [facility] - [facility] [address] [place] [address] [address] [place] [address] Annalisa Christopher MD [address] [place] [address] [address] [place] [address] documented as of this encounter Visit Diagnoses Not on filedocumented in this encounter Additional Health Concerns Assessment Noted Time PHQ-9 Depression Total Score: 1 06/06/20 16 9:00 AM CDT documented as of this encounter Care Teams Sand Cleaning Machine Operator Relationship Specialty Start Date End Date Annalisa Christopher MD [address] [place] [address] PCP - General 07/07/08 documented as of this encounter
--- OUTSIDE RECORDS SUMMARY | 2024-10-06 18:14 | XMS_ITS | Encounter Summary ---
Author Organization [facility] Address [address] [place] [address] Care Team Providers Care Front End Loader Driver Name Role Phone Annalisa Christopher MD Primary Care Provider [phone] Reason for Visit * Reason Onset Date Comments Urinary Frequency 03/10/2015 Flank Pain 03/10/2015 Encounter Details Date Type Department Care Team (Late st Contact Info) Description 03/10/2015 Telephone [facility] Primary Care - [facility] [address] [place] [address] [address] [place] [address] Mery Villanueva APRN-BC [address] [facility] [address] [place] [address] Urinary Frequency; Flank Pain Social History Tobacco Use Types Packs/Day Years [...] encounter Miscellaneous Notes * Telephone Encounter - Mery Villanueva APRN-BC - 03/10/2015 12:45 PM CDT Pt was told by phone when called she would only be leaving urine specimen and not appt. When she was offered appt to see me she declined. She just wants an antibiotic because she is certain she has urine infection. She also viewed her UAon my chart this morning. Urine culture sent. Franky sent * Telephone Encounter - Nakia Hassan - 03/10/2015 11:05 AM CDT Pt is here today to leave a urine specimen. Apparently she is under the impression that she was seeing EM. She called in today c/o flank pain and stated she read her urine test results from my [facility] and has hematuria also and wanted to recheck that. When bring back to the bathroom pt upset about not seeing EM as she was put on the nurse schedule. Spoke with Mery --pt upset that she drove 30 minjust to leave a urine sample. She could of went to a lab closer to her home. Appointment offered but pt did not want to be put in a room and have to wait. Per EM she will call out medicine to pt's [facility] pharmacy. documented in this encounter Plan of Treatment Upcoming Encounters Date Type Department Care Team (Late st Contact Info) Description 04/25/2025 8:20 AM CDT Office Visit [facility] Primary Care - [facility] [address] [facility] [address] [place] [address] Annalisa Christopher MD [address] [place] [address] [place] [address] documented as of this encounter Visit Diagnoses Not on filedocumented in this encounter Care Teams Front End Loader Driver Relationship Specialty Start Date End Date Annalisa Christopher MD [address] [facility] [address] [place] [address] PCP - General 07/07/08 documented as of this encounter
--- OUTSIDE RECORDS SUMMARY | 2024-10-06 18:14 | XMS_ITS | Encounter Summary ---
Author Organization [facility] Address [address] [place] [address] Care Team Providers Care Diving Judge Name Role Phone Annalisa Christopher MD Primary Care Provider [phone] Reason for Visit * Reason Onset Date Comments Sinus Infection 11/09/2016 Encounter Details Date Type Department Care Team (Late st Contact Info) Description 11/09/2016 Telephone [facility] Primary Care - [address] [place] [address] Annalisa Christopher MD [address] [place] [address] [address] [place] [address] Sinus Infection Social History Tobacco [...] encounter Miscellaneous Notes * Telephone Encounter - Tiana Brothers - 11/09/2016 10:28 AM CLASS C 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 S C TRUCK DRIVER documented in this encounter Plan of Treatment Upcoming Encounters Date Type Department Care Team (Late st Contact Info) Description 04/25/2025 8:20 AM CDT Office Visit [facility] Primary Care - [facility] [address] [facility] [address] [place] [address] Annalisa Christopher MD [address] [facility] [address] [place] [address] documented as of this encounter Visit Diagnoses Not on filedocumented in this encounter Additional Health Concerns Assessment Noted Time PHQ-9 Depression Total Score: 1 06/06/20 16 9:00 AM CDT documented as of this encounter Care Teams Diving Judge Relationship Specialty Start Date End Date Annalisa Christopher MD [address] [facility] [address] [place] [address] PCP - General 07/07/08 documented as of this encounter
--- OUTSIDE RECORDS SUMMARY | 2024-10-06 18:14 | XMS_ITS | Encounter Summary ---
Author Organization [facility] Address [address] [place] [address] Care Team Providers Care Youtuber Name Role Phone Annalisa Christopher MD Primary Care Provider [phone] Reason for Visit * Reason Onset Date Comments Question 02/17/2017 Encounter Details Date Type Department Care Team (Late st Contact Info) Description 02/17/2017 Telephone [facility] Primary Care - [address] [place] [address] Annalisa Christopher MD [address] [place] [address] [address] [place] [address] Question Social History Tobacco Use Types Packs/Day Years [...] encounter Miscellaneous Notes * Telephone Encounter - Estrellita Perdomo RN - 02/17/2017 1:15 PM CDT Faxed orders * Telephone Encounter - Mery Villanueva APRN-BC - 02/17/2017 11:32 AM CDT Allergy panels ordered as per pt request. Please fax order to [facility] that she is wanting to use * Telephone Encounter - Estrellita Perdomo RN - 02/17/2017 10:22 AM CDT Pt would like to proceed with lab tests Her insurance did cover the labs for her children [facility] in [place]-- send reqs * Telephone Encounter - Mery Villanueva APRN-BC - 02/17/2017 10:15 AM CDT #1 our allergy panels cover limited amount #2 I have no idea the cost the panels--may be a little pricey and the next treatment would be to introduce allergy shots and only an highway painter helper can do this. #3 happy to order the panels but unsure this will add to her care unless if food allergy related We order a midwest allergy panel and a common food allergy panel Let me know how she would like to proceed. * Telephone Encounter - Sanjana Tompkins - 02/17/2017 8:55 AM CDT Pt was in a few weeks ago for allergies Has CT scan done. Her insurance does not cover an highway painter helper. Her daughter recently had a blood allergy test done Asking if this is something you could order for her before she goes through the expense of paying out of pocket for the highway painter helper. Please Advise. documented in this encounter Plan of Treatment Upcoming Encounters Date Type Department Care Team (Late st Contact Info) Description 04/25/2025 8:20 AM CDT Office Visit [facility] Care - [address] [place] [address] Annalisa Christopher MD [address] [place] [address] [address] [place] [address] Scheduled Orders Name Type Priority Associated Diagnoses Orde r Schedule ALLERGY PANEL, ONG ALLERGENS Lab Routine Allergic rhinitis, unspecified allergic rhinitis trigger, unspecified rhinitis seasonality Expected: 02/17/2017, Expires: 02/17/2018 documented as of this encounter Procedures Procedure Name Priority Date/Time Associated Diagnosis Comments ALLERGY PANEL, PERENNIAL ALLERGENS Routine 02/23/2017 8:24 AM CDT ALLERGY PANEL INTERPRETATION Routine 02/23/2017 8:24 AM CDT ALLERGY PANEL, FOOD Routine 02/23/2017 8 :24 AM CDT Allergic rhinitis, unspecified allergic rhinitis trigger, unspecified rhinitis seasonality documented in this encounter Results * ALLERGY PANEL INTERPRETATION (02/23/2017 8:24 AM CDT) INTERPRETATION See Below [facility] Comment: Specific ?Level of Allergen IGE Class ?kU/L ? Specific IGE Antibody ----- ? --------- ?0 ?<0.10 ? Absent/Undetectable ??0/1 ?0.10-0.34 ? Very Low Level ??1 ?0.35-0.69 ? Low Level ??2 ?0.70-3.49 ? Moderate Level ??3 ?3.50-17.4 ? High Level ??4 ?17.5-49.9 ? Very High Level ??5 ?50-100 ?Very High Level ??6 ?>100 ?Very High Level The clinical relevance of allergen results of 0.10-0.34 kU/L are undetermined and intended for specialist use. Allergens denoted with a '' include results using one or more analyte specific reagents. In those cases, the test was developed and its analytical performance characteristics have been determined by [facility]. It has not been cleared or approved by the U.S. Food and Drug Administration. This assay has been validated pursuant to the CLIA regulations and is used for clinical purposes. Test Performed at: [facility] [place] [id number] [place] [address] ??[id number] NELSON FRENCH DO,MPH 02/23/2017 8:24 AM CDT Mery Villanueva ASSET PROTECTION ASSOCIATE-BC CHEMISTRY ORDERA [facility] [address] [place] [address] * ALLERGY PANEL, PERENNIAL ALLERGENS (02/23/2017 8:24 AM CDT) DERMATOPHAGOIDES PTERONYSSINUS IGE <0.10 kU/L [facility] [employer] [facility] ALLERGEN CLASS 0 [facility] [employer] [facility] DERMATOPHAGOIDES FARINAE IGE <0.10 kU/L [facility] DIAGNOSTICS [facility] ALLERGEN CLASS 0 [facility] DIAGNOSTICS [facility] ALLERGEN PENICILLIUM <0.10 kU/L [facility] DIAGNOSTICS [facility] ALLERGEN CLASS 0 [facility] DIAGNOSTICS [facility] CLADOSPORIUM HERBARUM IGE <0.10 kU/L [facility] DIAGNOSTICS [facility] ALLERGEN CLASS 0 [facility] DIAGNOSTICS [facility] A. FUMIGATUS IGE <0.10 kU/L [facility] DIAGNOSTICS [facility] ALLERGEN CLASS 0 [facility] DIAGNOSTICS [facility] ALLERGEN ALTERNARIA <0.10 kU/L [facility] DIAGNOSTICS [facility] ALLERGEN CLASS 0 [facility] ALLERGEN CAT EPITH & DAND <0.10 kU/L [facility] ALLERGEN CLASS 0 [facility] DOG DANDER IGE <0.10 kU/L [facility] ALLERGEN CLASS 0 [facility] COCKROACH IGE <0.10 kU/L [facility] ALLERGEN CLASS 0 [facility] ALLERGEN MAPLE <0.10 kU/L [facility] ALLERGEN CLASS 0 [facility] MOUNTAIN CEDAR IGE <0.10 kU/L [facility] ALLERGEN CLASS 0 [facility] WALNUT TREE IGE <0.10 kU/L [facility] ALLERGEN CLASS 0 [facility] SYCAMORE IGE <0.10 kU/L [facility] ALLERGEN CLASS 0 [facility] COTTONWOOD IGE <0.10 kU/L [facility] ALLERGEN CLASS 0 [facility] WHITE ROGER IGE <0.10 kU/L [facility] ALLERGEN CLASS 0 [facility] ALLERGEN OAK <0.10 kU/L [facility] ALLERGEN CLASS 0 [facility] ELM IGE <0.10 kU/L [facility] ALLERGEN CLASS 0 [facility] HICKORY PECAN TREE IGE <0.10 kU/L [facility] ALLERGEN CLASS 0 [facility] WHITE MULBERRY IGE <0.10 kU/L [facility] ALLERGEN CLASS 0 [facility] ALLERGEN BERMUDA GRASS <0.10 kU/L [facility] ALLERGEN CLASS 0 [facility] ELSA GRASS IGE <0.10 kU/L [facility] ALLERGEN CLASS 0 [facility] . [facility] ALLERGEN RAGWEED <0.10 kU/L [facility] ALLERGEN CLASS 0 [facility] ALLERGEN ROUGH PIGWEED <0.10 kU/L [facility] ALLERGEN CLASS 0 [facility] ALLERGEN BURKINAN THISTLE <0.10 kU/L [facility] ALLERGEN CLASS 0 [facility] ALLERGEN RG ROSS ELDER <0.10 kU/L [facility] ALLERGEN CLASS 0 [facility] ALLERGEN MOUSE URINE PROTEIN IGE <0.10 kU/L [facility] ALLERGEN CLASS 0 [facility] IGE 22 <SM=783 kU/L [facility] Comment: Test Performed at: [facility] [address] [place] ??[id number] NELSON FRENCH DO,MPH 02/23/2017 8:24 AM CDT Mery Villanueva ASSET PROTECTION ASSOCIATE-BC CHEMISTRY ORDERA BLES [facility] [address] [place] [address] * ALLERGY PANEL, FOOD (02/23/2017 8:24 AM CDT) ALLERGEN EGG WHITE <0.10 kU/L [facility] ALLERGEN CLASS [address] [facility] ALLERGEN PEANUT <0.10 kU/L [facility] ALLERGEN CLASS [address] [facility] WHEAT IGE <0.10 kU/L [facility] ALLERGEN CLASS [address] [facility] WALNUT IGE <0.10 kU/L [facility] ALLERGEN CLASS [address] [facility] ALLERGEN CODFISH <0.10 kU/L [facility] ALLERGEN CLASS [address] [facility] ALLERGEN MILK <0.10 kU/L [facility] ALLERGEN CLASS [address] [facility] SOYBEAN IGE <0.10 kU/L [facility] ALLERGEN CLASS [address] [facility] SHRIMP IGE <0.10 kU/L [facility] ALLERGEN CLASS [address] [facility] SCALLOP IGE <0.10 kU/L [facility] ALLERGEN CLASS [address] [facility] SESAME SEED IGE <0.10 kU/L [facility] ALLERGEN CLASS [address] [facility] ALLERGEN HAZELNUT <0.10 kU/L [facility] ALLERGEN CLASS [address] [facility] ALLERGEN CASHEW NUT <0.10 kU/L [facility] ALLERGEN CLASS [address] [facility] ALLERGEN ALMOND <0.10 kU/L [facility] ALLERGEN CLASS [address] [facility] SALMON IGE <0.10 kU/L [facility] ALLERGEN CLASS [address] [facility] TUNA IGE <0.10 kU/L [facility] ALLERGEN CLASS [address] [facility] Comment: Test Performed at: [facility] [address] ??[phone] NELSON FRENCH DO,MPH Blood 02/23/2017 8:24 AM CDT Mery Villanueva ASSET PROTECTION ASSOCIATE-BC CHEMISTRY ORDERA BLES [facility] [address] [place] [address] documented in this encounter Visit Diagnoses Diagnosis Allergic rhinitis, unspecified allergic rhinitis trigger, unspecified rhinitis seasonality- Primary documented in this encounter Additional Health Concerns Assessment Noted Time PHQ-9 Depression Total Score: 1 06/06/20 16 9:00 AM CDT documented as of this encounter Care Teams Youtuber Relationship Specialty Start Date End Date Annalisa Christopher MD [address] [place] [address] PCP - General 07/07/08 documented as of this encounter
--- OUTSIDE RECORDS SUMMARY | 2024-10-06 18:14 | XMS_ITS | Encounter Summary ---
Author Organization [facility] Address [address] [place] [address] Care Team Providers Care Weight Analyst Name Role Phone Annalisa Christopher MD Primary Care Provider [phone] Encounter Details Date Type Department Care Team (Late st Contact Info) Description 05/26/2015 Abstract [facility] - [address] [place] [address] Annalisa Christopher MD [address] [place] [address] [address] [place] [address] Social History Tobacco Use Types [...] Description 04/25/2025 8:20 AM CDT Office Visit [facility] - [facility] [address] [place] [address] [address] [place] [address] Annalisa Christopher MD [address] [place] [address] [address] [place] [address] documented as of this encounter Visit Diagnoses Not on filedocumented in this encounter Care Teams Weight Analyst Relationship Specialty Start Date End Date Annalisa Christopher MD [address] [facility] [address] [place] [address] PCP - General 07/07/08 documented as of this encounter
--- OUTSIDE RECORDS SUMMARY | 2024-10-06 18:14 | XMS_ITS | Encounter Summary ---
Author Organization [facility] Address [address] [place] [address] Care Team Providers Care Public Speaker Name Role Phone Annalisa Christopher MD Primary Care Provider [phone] Encounter Details Date Type Department Care Team (Late st Contact Info) Description 08/17/2016 Abstract [facility] - [address] [place] [address] Annalisa Christopher MD [address] [place] [address] [address] [place] [address] Social History Tobacco Use Types [...] Description 04/25/2025 8:20 AM CDT Office Visit [facility] - [facility] [address] [place] [address] [address] [place] [address] Annalisa Christopher MD [address] [place] [address] [address] [place] [address] documented as of this encounter Visit Diagnoses Not on filedocumented in this encounter Additional Health Concerns Assessment Noted Time PHQ-9 Depression Total Score: 1 06/06/20 16 9:00 AM CDT documented as of this encounter Care Teams Public Speaker Relationship Specialty Start Date End Date Annalisa Christopher MD [address] [place] [address] PCP - General 07/07/08 documented as of this encounter
--- OUTSIDE RECORDS SUMMARY | 2024-10-06 18:14 | XMS_ITS | Encounter Summary ---
Author Organization [facility] Address [address] [place] [address] Care Team Providers Care Forest Fire Equipment Operator Name Role Phone Annalisa Christopher MD Primary Care Provider [phone] Reason for Visit * Reason Comments Physical non fasting Encounter Details Date Type Department Care Team (Late st Contact Info) Description 05/31/2017 11:00 AM CDT Office Visit [facility] - [address] [place] [address] Annalisa Christopher MD [address] [place] [address] [place] [address] Preventative health care (Primary Dx); Allergic rhinitis due to pollen, unspecified rhinitis seasonality Social History Tobacco Use Types Packs/Day Years [...] Sign Reading Time Taken Comments Blood Pressure 104/60 05/31/2017 11:32 AM CDT Pulse - - Temperature - - Respiratory Rate - - Oxygen Saturation - - Inhaled Oxygen Concentration - - Weight 94.3 kg (208 lb) 05/31/2017 11:32 AM CDT Height 170.2 cm (5' 7 ) 05/31/2017 11:32 AM CDT Body Mass Index 32.58 05/31/2017 11:32 AM CDT documented in this encounter Progress Notes * Annalisa Christopher MD - 05/31/2017 11:44 AM CDT HISTORY OF PRESENT ILLNESS Fabiana Pryor, a 41 y.o. female presents with a Chief Complaint of Physical (non fasting ) Subjective HPI Presenting for PE Patient Active Problem List Diagnosis Date Noted ??? PTSD (post-traumatic stress disorder) Overview Note: Hx of stillbirth at age 25, patient has 2 living children 7 pregnancies ??? Allergic rhinitis 08/05/2013 REVIEW OF SYSTEMS Review of Systems Constitutional: [...] for behavioral problems. Objective PHYSICAL EXAM BP 104/60 Ht 5' 7 (1.702 m) Wt 94.3 kg (208 lb) BMI 32.58 kg/m2 Physical Exam Constitutional: She is oriented to person, place, and time. No distress. HENT: Head: Normocephalic and atraumatic. Right Ear: External ear normal. Left Ear: External ear normal. Mouth/Throat: No oropharyngeal exudate. Eyes: Conjunctivae and EOM are normal. Pupils are equal, round, and reactive to light. Neck: Normal range of motion. Neck supple. [...] mood and affect. Her behavior is normal. Assessment ASSESSMENT and PLAN: ICD-10-CM ICD-9-CM 1. Preventative health care Z00.00 V70.0 LIPID PANEL The patient is advised to continue current medications and continue current healthy lifestyle patterns. COMPREHENSIVE METABOLIC PANEL CBC WITH DIFFERENTIAL TSH REFLEXIVE VITAMIN D 25 HYDROXY HEMOGLOBIN A1C 2. Allergic rhinitis due to pollen, unspecified rhinitis seasonality J30.1 477.0 cetirizine-pseudoephedrine sr 12 hour (ZyrTEC-D) 5-120 mg tablet documented in this encounter Plan of Treatment Upcoming Encounters Date Type Department Care Team (Late st Contact Info) Description 04/25/2025 8:20 AM CDT Office Visit [facility] [address] [place] [address] [address] [place] [address] Annalisa Christopher MD [address] [place] [address] [address] [place] [address] documented as of this encounter Procedures Procedure Name Priority Date/Time Associated Diagnosis Comments TSH REFLEXIVE Routine 05/31/2017 11:52 AM CDT Preventative health care CBC WITH DIFFERENTIAL Routine 05/31/2017 11:52 AM CDT Preventative health care VITAMIN D 25 HYDROXY Routine 05/31/2017 11:52 AM CDT Preventative health care HEMOGLOBIN A1C Routine 05/31/2017 11:52 AM CDT Preventative health care LIPID PANEL Routine 05/31/2017 11:52 AM CDT Preventative health care COMPREHENSIVE METABOLIC PANEL Routine 05/31/2017 11:52 AM CDT Preventative health care documented in this encounter Results * HEMOGLOBIN A1C (05/31/2017 11:52 AM CDT) HEMOGLOBIN A1C 5.4 4.0 - 6.0 % 05/31/2017 6:34 PM CDT [facility] Comment:Note: Effective as o f 10/16/2015 a new methodology, Turbidimetric inhibition immunoassay (TINIA),has been implemented. EST. AVG GLUCOSE, A1C 108 mg/dL 05/31/2017 6:34 PM CDT [facility] Blood Venipuncture / Unknown 05/31/2017 11:52 AM CDT 05/31/2017 3:26 PM CDT Annalisa Christopher MD CHEMISTRY ORDERABLES Performing Organization Address [facility]/ZIP Co de Phone Number [facility] CLIA# [id number] [address] [place] [address] * VITAMIN D 25 HYDROXY (05/31/2017 11:52 AM CDT) VITAMIN D TOTAL (25OH) 50 30 - 100 ng/mL 06/01/2017 10:10 AM CDT [facility] Blood Venipuncture / Unknown 05/31/2017 11:52 AM CDT 05/31/2017 3:26 PM CDT Narrative [facility] - 06/01/2017 10:10 AM CDT Interpretive Data Chart: Deficient: 0 - 20 ng/mL Insufficient: 21 - 29 ng/mL Sufficient: 30 - 100 ng/mL Increased Risk of Hypercalciuria: >100 ng/mL Toxic: >150 ng/mL Annalisa Christopher MD CHEMISTRY ORDERABLES Performing Organization Address [facility]/ZIP Co de Phone Number [facility] CLIA# [id number] [address] [place] [address] * TSH REFLEXIVE (05/31/2017 11:52 AM CDT) TSH 0.52 0.27 - 4.20 uIU/mL 05/31/2017 8:23 PM CDT [facility] Blood Venipuncture / Unknown 05/31/2017 11:52 AM CDT 05/31/2017 3:26 PM CDT Annalisa Christopher MD CHEMISTRY ORDERABLES [facility] - [facility] CLIA# [id number] [address] [facility] [place] [address] * (ABNORMAL) CBC WITH DIFFERENTIAL (05/31/2017 11:52 AM CDT) Pathologist [facility] WBC 5.5 4.0 - 9.8 K/uL 05/31/2017 4:07 PM CDT [facility] - [facility] RBC 5.03(H) 3.90 - 4.90 M/uL 05/31/2017 4:07 PM CDT [facility] - [facility] HEMOGLOBIN 14.7 11.8 - 14.8 g/dL 05/31/2017 4:07 PM CDT [facility] - [facility] HEMATOCRIT 44.7(H) 35.5 - 44.0 % 05/31/2017 4:07 PM CDT [facility] - [facility] MCV 88.9 82.0 - 99.0 fL 05/31/2017 4:07 PM CDT [facility] MCH 29.2 27.2 - 32.6 pg 05/31/2017 4:07 PM CDT [facility] - [facility] MCHC 32.9 31.5 - 35.5 g/dL 05/31/2017 4:07 PM CDT [facility] RDW 12.3 11.5 - 14.5 % 05/31/2017 4:07 PM CDT [facility] RDW-STDEV 40.6 37.1 - 48.7 fL 05/31/2017 4:07 PM CDT [facility] PLATELETS 272 140 - 350 K/uL 05/31/2017 4:07 PM CDT [facility] MPV 10.6 9.3 - 12.4 fL 05/31/2017 4:07 PM CDT [facility] NEUTROPHILS 59 % 05/31/2017 4:07 PM CDT [facility] LYMPHOCYTES 30 % 05/31/2017 4:07 PM CDT [facility] MONOCYTES 9 % 05/31/2017 4:07 PM CDT [facility] EOSINOPHILS 1 % 05/31/2017 4:07 PM CDT [facility] BASOPHILS 0 % 05/31/2017 4:07 PM CDT [facility] - [facility] IMMATURE GRANULOCYTES 0 % 05/31/2017 4:07 PM CDT [facility] NEUTROPHIL ABSOLUTE 3.26 1.90 - 7.00 K/uL 05/31/2017 4:07 PM CDT [facility] LYMPHOCYTE ABSOLUTE 1.66 0.70 - 4.50 K/uL 05/31/2017 4:07 PM CDT [facility] MONOCYTE ABSOLUTE 0.47 0.10 - 1.30 K/uL 05/31/2017 4:07 PM CDT [facility] EOSINOPHIL ABSOLUTE 0.05 0.00 - 0.70 K/uL 05/31/2017 4:07 PM CDT [facility] BASOPHILS ABSOLUTE 0.02 0.00 - 0.20 K/uL 05/31/2017 4:07 PM CDT [facility] IMMATURE GRANULOCYTES ABSOLUTE 0.02 0.00 - 0.03 K/uL 05/31/2017 4:07 PM CDT [facility] Blood Venipuncture / Unknown 05/31/2017 11:52 AM CDT 05/31/2017 3:26 PM CDT Annalisa Christopher MD HEMATOLOGY ORDERABLE S [facility] [id number] [address] [place] [address] * COMPREHENSIVE METABOLIC PANEL (05/31/2017 11:52 AM CDT) SODIUM 138 136 - 145 mmol/L 05/31/2017 7:50 PM CDT [facility] - [facility] POTASSIUM 4.3 3.5 - 5.0 mmol/L 05/31/2017 7:50 PM [facility] CHLORIDE 102 98 - 107 mmol/L 05/31/2017 7:50 PM [facility] CO2 23 22 - 29 mmol/L 05/31/2017 7:50 PM [facility] CALCIUM 10.0 8.6 - 10.2 mg/dL 05/31/2017 7:50 PM [facility] BUN 16 6 - 20 mg/dL 05/31/2017 7:50 PM [facility] CREATININE 0.74 0.51 - 0.95 mg/dL 05/31/2017 7:50 PM [facility] GLUCOSE 91 74 - 99 mg/dL 05/31/2017 7:50 PM [facility] TOTAL PROTEIN 7.8 6.7 - 8.6 g/dL 05/31/2017 7:50 PM [facility] ALBUMIN 4.5 3.5 - 5.2 g/dL 05/31/2017 7:50 PM [facility] - [facility] BILIRUBIN TOTAL 0.3 0.3 - 1.2 mg/dL 05/31/2017 7:50 PM [facility] ALKALINE PHOSPHATASE 92 35 - 104 U/L 05/31/2017 7:50 PM [facility] AST 25 <33 U/L 05/31/2017 7:50 PM [facility] ALT 26 <34 U/L 05/31/2017 7:50 PM [facility] GFR >60 >=60 mL/min/1.7 3 sq meter 05/31/2017 7:50 PM [facility] - [facility] Comment: eGFR has not been validated [...] GFR, >60 >=60 mL/min/1.7 3 sq meter 05/31/2017 7:50 PM CDT [facility] LABORATORY SERVICES [facility] ANION GAP 13 8 - 16 mmol/L 05/31/2017 7:50 PM T [facility] LABORATORY SERVICES [facility] Blood Venipuncture / Unknown 05/31/2017 11:52 AM CDT 05/31/2017 3:26 PM CDT Narrative [facility] LABORATORY SERVICES - [facility] - 05/31/2017 7:50 PM CDT Samples containing indocyanine green cause interferences on Total and/or Direct Bilirubin and must not be measured. Annalisa Christopher MD CHEMISTRY ORDERABLES [facility] LABORATORY SERVICES [facility]# [id number] [address] [place] [address] * (ABNORMAL) LIPID PANEL (05/31/2017 11:52 AM CDT) CHOLESTEROL 217(H) <200 mg/dL 05/31/2017 7:50 PM CDT [facility] LABORATORY SERVICES [facility] TRIGLYCERIDE 76 <150 mg/dL 05/31/2017 7:50 PM T [facility] LABORATORY [facility] HDL 48 40 - 59 mg/dL 05/31/2017 7:50 PM T [facility] LABORATORY [facility] LDL CALCULATED 154(H) <100 mg/dL 05/31/2017 7:50 PM CDT [facility] LABORATORY [facility] NON-HDL CHOLESTEROL 169(H) <130 mg/dL 05/31/2017 7:50 PM T [facility] LABORATORY SERVICES [facility] Blood Venipuncture / Unknown 05/31/2017 11:52 AM CDT 05/31/2017 3:26 PM CDT Narrative [facility] LABORATORY SERVICES - [facility] - 05/31/2017 7:50 PM CDT TOTAL CHOLESTEROL ??mg/dL ??Desirable <200 ??Borderline high [...] Panels (NCEP/AMA) Annalisa Christopher MD CHEMISTRY ORDERABLES Performing Organization Address City/State/[facility] Co de Phone Number [facility] LABORATORY SERVICES [facility]# [id number] [address] [facility] [place] [address] documented in this encounter Visit Diagnoses Diagnosis Preventative health care- Primary Routine general medical examination at a health care facility Allergic rhinitis due to pollen, unspecified rhinitis seasonality documented in this encounter Additional Health Concerns Assessment Noted Time PHQ-9 Depression Total Score: 1 06/06/20 16 9:00 AM CDT documented as of this encounter Care Teams Forest Fire Equipment Operator Relationship Specialty Start Date End Date Annalisa Christopher MD [address] [place] [address] PCP - General 07/07/08 documented as of this encounter
--- OUTSIDE RECORDS SUMMARY | 2024-10-06 18:14 | XMS_ITS | Encounter Summary ---
Author Organization [facility] Address [address] [place] [address] Care Team Providers Care Photonics Engineering Technologist Name Role Phone Annalisa Christopher MD Primary Care Provider [phone] Reason for Visit * Reason Onset Date Comments Medication Review 01/13/2017 Encounter Details Date Type Department Care Team (Late st Contact Info) Description 01/13/2017 Telephone [facility] - [address] [place] [address] Annalisa Christopher MD [address] [place] [address] [address] [place] [address] Medication Review Social History Tobacco Use Types Packs/Day Years [...] * Telephone Encounter - Sanjana Tompkins - 01/13/2017 11:36 AM CDT Spoke to pt with information per EM. * Telephone Encounter - Mery Villanueva APRN-GINNA - 01/13/2017 11:19 AM CDT symbicort inhaler is maintenance inhaler and can only be used either 2 puffs nightly or she may use2 puff twice daily No more than that. Other inhaler is rescue inhaler and she can used every 6 hours as needed for cough sob wheeze with the symbicort * Telephone Encounter - Kathleen Harmon - 01/13/2017 10:55 AM CDT Pt was given symbicort today to take at night Pt not sure if she is to continue with the other inhaler she has as well? documented in this encounter Plan of Treatment Upcoming Encounters Date Type Department Care Team (Late st Contact Info) Description 04/25/2025 8:20 AM CDT Office Visit [facility] - [facility] [address] [facility] [address] [place] [address] Annalisa Christopher MD [address] [place] [address] [place] [address] documented as of this encounter Visit Diagnoses Not on filedocumented in this encounter Additional Health Concerns Assessment Noted Time PHQ-9 Depression Total Score: 1 06/06/20 16 9:00 AM CDT documented as of this encounter Care Teams Photonics Engineering Technologist Relationship Specialty Start Date End Date Annalisa Christopher MD [address] [facility] [address] [place] [address] PCP - General 07/07/08 documented as of this encounter
--- OUTSIDE RECORDS SUMMARY | 2024-10-06 18:14 | XMS_ITS | Encounter Summary ---
Author Organization [facility] Address [address] [place] [address] Care Team Providers Care Lab Manager Name Role Phone Annalisa Christopher MD Primary Care Provider [phone] Reason for Visit * Reason Comments Sinus Pain Allergies Encounter Details Date Type Department Care Team (Late st Contact Info) Description 01/02/2017 9:20 AM CDT Office Visit [facility] Primary Care - [address] [place] [address] Mery Villanueva F, INVESTIGATIONS CONSULTANT- [address] [facility] [address] [place] [address] Allergic rhinitis due to pollen, unspecified rhinitis seasonality (Primary Dx); Acute recurrent sinusitis, unspecified location; Cough Social History Tobacco Use Types Packs/Day [...] Sign Reading Time Taken Comments Blood Pressure 94/70 01/02/2017 9:33 AM CDT Pulse - - Temperature 36.8 ??C (98.2 ??F) 01/02/2017 9:33 AM CD T Respiratory Rate - - Oxygen Saturation - - Inhaled Oxygen Concentration - - Weight 88.9 kg (196 lb) 01/02/2017 9:33 AM CDT Height 170.2 cm (5' 7 ) 01/02/2017 9:33 AM CDT Body Mass Index 30.7 01/02/2017 9:33 AM CDT documented in this encounter Progress Notes * Mery Villanueva APRN- - 01/02/2017 9:49 AM CDT Mery Villanueva APRN, [facility] [place] [address] SUBJECTIVE: Chief Complaint Patient presents with ??? Sinus Pain ??? Allergies Fabiana Gomes a 41 y.o. female who presents for the above. She reports ongoing problems with sinus and allergies that are not improving with her regular allergy rx medications. She reports cough is persistent now too. She denies fevers, night sweats, sob, wheeze. She has sinus pain and drainage. Current medical problems: Patient Active Problem List Diagnosis Date Noted ??? PTSD (post-traumatic stress disorder) Overview Note: Hx of stillbirth at age 25, patient has 2 living children 7 pregnancies ??? Allergic rhinitis 08/05/2013 Social History Substance Use Topics ??? Smoking status: Former Smoker Quit date: 07/09/2010 ??? Smokeless tobacco: Never Used ??? Alcohol use No Patient's Medical History, Medication and Allergy Lists have been reviewed and updates as needed inthe record today. OBJECTIVE: Visit Vitals ??? BP (!) 94/70 ??? Temp 98.2 ??F (36.8 ??C) ??? Ht 5' 7 (1.702 m) ??? Wt 88.9 kg (196 lb) ??? BMI 30.7 kg/m2 General appearance: alert, no apparent distress, Mental Status: alert and oriented. HEENT: normal ears, eyes, oropharynx, throat and nodes. BOth TMs are bulging with fluid accumulation, both passages are quite swollen Tenderness upon palpation of sinuses Chest: clear to auscultation, no wheezes, rales or rhonchi, symmetric air entry, no respiratory distress. Heart: normal rate, regular rhythm, no murmurs, rubs, clicks or gallops. ASSESSMENT and PLAN: ICD-10-CM ICD-9-CM 1. Allergic rhinitis due to pollen, unspecified rhinitis seasonality:concerned about sinus infection Pred and augmentin She will restart singulair Refilled albuterol J30.1 477.0 2. Acute recurrent sinusitis, unspecified location J01.91 461.9 3. Cough R05 786.2 Orders: Orders Placed This Encounter ??? predniSONE (DELTASONE) 20 mg tablet ??? amoxicillin-clavulanate (AUGMENTIN) 875-125 mg tablet ??? montelukast (SINGULAIR) 10 mg tablet ??? albuterol HFA 90 mcg inhaler Plan to follow up in Routine prn Patient was instructed to call the office or return sooner for any problems. The patient verbalizes understanding of plan of care and all questions were answered. documented in this encounter Plan of Treatment Upcoming Encounters Date Type Department Care Team (Late st Contact Info) Description 04/25/2025 8:20 AM CDT Office Visit [facility] Primary Care - [facility] [address] [facility] [address] [place] [address] Annalisa Christopher MD [address] [place] [address] [place] [address] documented as of this encounter Visit Diagnoses Diagnosis Allergic rhinitis due to pollen, unspecified rhinitis seasonality- Primary Acute recurrent sinusitis, unspecified location Cough documented in this encounter Additional Health Concerns Assessment Noted Time PHQ-9 Depression Total Score: 1 06/06/20 16 9:00 AM CDT documented as of this encounter Care Teams Lab Manager Relationship Specialty Start Date End Date Annalisa Christopher MD [address] [facility] [address] [place] [address] PCP - General 07/07/08 documented as of this encounter
--- OUTSIDE RECORDS SUMMARY | 2024-10-06 18:14 | XMS_ITS | Encounter Summary ---
Author Organization [facility] Address [address] [place] [address] Care Team Providers Care Finish Machine Tender Name Role Phone Annalisa Christopher MD Primary Care Provider [phone] Reason for Visit * Reason Comments Immunization/Injection Encounter Details Date Type Department Care Team (Latest Contact Info) Description 05/26/2015 1:30 PM CDT Clinical Support [address] [place] [address] Nurse, [facility] Screening examination for pulmonary tuberculosis (Primary Dx) Social History Tobacco Use Types [...] on file documented as of this encounter Progress Notes * Josefina Dye - 05/26/2015 1:23 PM CDT Pt came in for ppd test, was administered in left arm. Pt will return on 05/28 to have read documented in this encounter Plan of Treatment Upcoming Encounters Date Type Department Care Team (Late st Contact Info) Description 04/25/2025 8:20 AM CDT Office Visit [address] [place] [address] Annalisa Christopher MD [address] [place] [address] documented as of this encounter Visit Diagnoses Diagnosis Screening examination for pulmonary tuberculosis- Primary documented in this encounter Care Teams Finish Machine Tender Relationship Specialty Start Date End Date Annalisa Christopher MD [address] [place] [address] PCP - General 07/07/08 documented as of this encounter
--- OUTSIDE RECORDS SUMMARY | 2024-10-06 18:14 | XMS_ITS | Encounter Summary ---
Author Organization [facility] Address [address] [place] [address] Care Team Providers Care Joy Operator Name Role Phone Annalisa Christopher MD Primary Care Provider [phone] Reason for Visit * Reason Onset Date Comments Sinus Problem 01/28/2016 Encounter Details Date Type Department Care Team (Late st Contact Info) Description 01/28/[address] [facility] Primary Care - [address] [place] [phone] Annalisa Christopher MD [address] [place] [address] [address] [place] [address] Sinus Problem Social History Tobacco [...] * Telephone Encounter - Emely Cuadra - 01/28/2016 1:18 PM CDT Spoke to pt * Telephone Encounter - Annalisa Christopher MD - 01/28/2016 12:56 PM CDT Take Augmentin and when finished - go back to using Flonase every day * Telephone Encounter - Kathleen Harmon - 01/28/2016 11:43 AM CDT Pt was in 12/16 for sinus problems--xr were normal Sx returned 5days ago Congestion Drainage, thick green Ear pressure Vertigo Constant cough S/t Slight headache No fever Taking aleve pls advise? documented in this encounter Plan of Treatment Upcoming Encounters Date Type Department Care Team (Late st Contact Info) Description 04/25/2025 8:20 AM CDT Office Visit [facility] Primary Care - [facility] [address] [facility] [address] [place] [phone] Annalisa Christopher MD [address] [facility] [address] [place] [phone] documented as of this encounter Visit Diagnoses Not on filedocumented in this encounter Care Teams Joy Operator Relationship Specialty Start Date End Date Annalisa Christopher MD [address] [facility] [address] [place] [address] PCP - General 07/07/08 documented as of this encounter
--- OUTSIDE RECORDS SUMMARY | 2024-10-06 18:14 | XMS_ITS | Encounter Summary ---
Author Organization [facility] Address [address] [place] [address] Care Team Providers Care Dairy Bar Manager Name Role Phone Annalisa Christopher MD Primary Care Provider [phone] Reason for Visit * Reason Comments Physical Encounter Details Date Type Department Care Team (Late st Contact Info) Description 06/06/2016 9:00 AM CDT Office Visit [facility] Primary Care - [address] [place] [phone] Annalisa Christopher MD [address] [place] [address] [address] [place] [address] Preventative health care (Primary Dx); PTSD (post-traumatic stress disorder); Allergic rhinitis due to pollen Social History Tobacco Use Types Packs/Day Years [...] Sign Reading Time Taken Comments Blood Pressure 110/76 06/06/2016 9:02 AM CDT Pulse - - Temperature - - Respiratory Rate - - Oxygen Saturation - - Inhaled Oxygen Concentration - - Weight 80.7 kg (178 lb) 06/06/2016 9:02 AM CDT Height 170.2 cm (5' 7 ) 06/06/2016 9:02 AM CDT Body Mass Index 27.88 06/06/2016 9:02 AM CDT documented in this encounter Progress Notes * Annalisa Christopher MD - 06/06/2016 9:24 AM CDT HISTORY OF PRESENT ILLNESS Fabiana Pryor, a 40 y.o. female presents with a Chief Complaint of Physical Subjective HPI Patient Active Problem List Diagnosis Date Noted ??? PTSD (post-traumatic stress disorder) Overview Note: Hx of stillbirth at age 25, patient has 2 living children 7 pregnancies ??? Recurrent acute serous otitis media of both ears 12/17/2015 ??? Malaise and fatigue 10/08/2013 ??? Allergic rhinitis - responding well to Flonase 08/05/2013 REVIEW OF SYSTEMS Review of Systems Constitutional: Negative. Negative for chills and fatigue. HENT: Negative for congestion and sinus pressure. Respiratory: Negative for cough, shortness of breath and wheezing. Cardiovascular: Negative for chest pain, palpitations and leg swelling. Gastrointestinal: Negative for nausea, vomiting, abdominal pain and constipation. Genitourinary: Negative for dysuria and urgency. Psychiatric/Behavioral: Positive for sleep disturbance. Negative for suicidal ideas, hallucinations, behavioral problems, confusion, self-injury, dysphoric mood, decreased concentration and agitation. The patient is nervous/anxious. The patient is not hyperactive. Objective PHYSICAL EXAM BP 110/76 mmHg Ht 5' 7 (1.702 m) Wt 80.74 kg (178 lb) BMI 27.87 kg/m2 ? No Physical Exam Constitutional: She is oriented to [...] sounds are normal. There is no tenderness. Lymphadenopathy: She has no cervical adenopathy. Neurological: She is alert and oriented to person, place, and time. Skin: Skin is warm and dry. She is not diaphoretic. Assessment ASSESSMENT and PLAN: ICD-10-CM ICD-9-CM 1. Preventative health care Z00.00 V70.0 LIPID PANEL COMPREHENSIVE METABOLIC PANEL CBC WITH DIFFERENTIAL TSH VITAMIN D 25 HYDROXY HEMOGLOBIN A1C POC URINALYSIS DIPSTICK NON AUTOMATED 2. PTSD (post-traumatic stress disorder) F43.10 309.81 escitalopram oxalate (LEXAPRO) 10 mg tablet diazePAM (VALIUM) 5 mg tablet 3. Allergic rhinitis due to pollen J30.1 477.0 The patient is advised to continue current medications, continue current healthy lifestyle patternsand return for routine annual checkups. documented in this encounter Plan of Treatment Upcoming Encounters Date Type Department Care Team (Late st Contact Info) Description 04/25/2025 8:20 AM CDT Office Visit [facility] Care - [address] [place] [address] Annalisa Christopher MD [address] [place] [address] [address] [place] [address] documented as of this encounter Procedures Procedure Name Priority Date/Time Associated Diagnosis Comments POC URINALYSIS DIPSTICK NON AUTOMATED Routine 06/06/2016 10:40 AM CDT Preventative health care CBC WITH DIFFERENTIAL Routine 06/06/2016 9:39 AM CDT Preventative health care VITAMIN D 25 HYDROXY Routine 06/06/2016 9:39 AM CDT Preventative health care TSH Routine 06/06/2016 9:39 AM CDT Preventative health care HEMOGLOBIN A1C Routine 06/06/2016 9:39 AM CDT Preventative health care LIPID PANEL Routine 06/06/2016 9:39 AM CDT Preventative health care COMPREHENSIVE METABOLIC PANEL Routine 06/06/2016 9:39 AM CDT Preventative health care documented in this encounter Results * POC URINALYSIS DIPSTICK NON AUTOMATED (06/06/2016 10:40 AM CDT) COLOR UA Yellow Pale to Dark Yellow [facility] CLARITY UA Clear Clear [facility] GLUCOSE UA Negative Negative [facility] BILIRUBIN UA Negative Negative [facility] KETONES UA Negative Negative [facility] SPECIFIC GRAVITY UA 1.025 1.001 - 1.035 [facility] BLOOD UA Negative Negative [facility] PH UA 6.5 5.0 - 8.0 [facility] PROTEIN UA Negative Negative [facility] UROBILINOGEN UA 0.2 <2.0 mg/dL [facility] NITRITE UA Negative Negative [facility] LEUKOCYTE ESTERASE UA Negative Negative [facility] Urine specimen (specimen) 06/06/2016 10:40 AM CDT Annalisa Christopher MD POINT OF CARE TESTIN G [facility] * HEMOGLOBIN A1C (06/06/2016 9:39 AM CDT) HEMOGLOBIN A1C 5.4 4.0 - 6.0 % 06/06/2016 4:43 PM CDT [facility] [employer] [facility] Comment:Note: Effective as o f 10/16/2015 a new methodology, Turbidimetric inhibition immunoassay (TINIA),has been implemented. EST. AVG GLUCOSE, A1C 108 mg/dL 06/06/2016 4:43 PM CDT [facility] [employer] [facility] Blood Collection / Unknown 06/06/2016 9:39 AM CDT 06/06/2016 3:34 PM CDT Annalisa Christopher MD CHEMISTRY ORDERABLES [facility] [employer] [facility] CLIA# [id number] [address] [place] [address] * VITAMIN D 25 HYDROXY (06/06/2016 9:39 AM CDT) VITAMIN D TOTAL (25OH) 37 30 - 100 ng/ml 06/06/2016 5:08 PM CDT [facility] Blood Collection / Unknown 06/06/2016 9:39 AM CDT 06/06/2016 3:34 PM CDT Narrative [facility]ORATORY SERVICES - [facility] - 06/06/2016 5:08 PM CDT Interpretive Data Chart: Deficient: 0 - 20 ng/ml Insufficient: 21 - 29 ng/ml Sufficient: 30 - 100 ng/ml Increased Risk of Hypercalciuria: >100 ng/ml Toxic: >150 ng/ml Annalisa Christopher MD CHEMISTRY ORDERABLES [facility] CLDE# [id number] [address] [place] [address] * TSH (06/06/2016 9:39 AM CDT) Pathologist [facility] TSH 0.66 0.27 - 4.20 uIU/mL 06/06/2016 5:27 PM CDT [facility] Blood Collection / Unknown 06/06/2016 9:39 AM CDT 06/06/2016 3:34 PM CDT Annalisa Christopher MD CHEMISTRY ORDERABLES Performing Organization Address City/[facility]/ZIP Co de Phone Number [facility] [employer] [facility]# [id number] [address] [place] [address] * (ABNORMAL) CBC WITH DIFFERENTIAL (06/06/2016 9:39 AM CDT) WBC 5.5 4.0 - 9.8 K/uL 06/06/2016 4:12 PM CDT [facility] RBC 4.90 3.90 - 4.90 M/uL 06/06/2016 4:12 PM CDT [facility] HEMOGLOBIN 14.6 11.8 - 14.8 g/dL 06/06/2016 4:12 PM CDT [facility] HEMATOCRIT 44.5(H) 35.5 - 44.0 % 06/06/2016 4:12 PM CDT [facility] [employer] [facility]AT[facility] SERVICES - [facility] MCV 90.8 82.0 - 99.0 fL 06/06/2016 4:12 PM CDT [facility] [employer] - [facility] MCH 29.8 27.2 - 32.6 pg 06/06/2016 4:12 PM CDT [facility] [employer] - [facility] MCHC 32.8 31.5 - 35.5 g/dL 06/06/2016 4:12 PM CDT [facility] [employer] - [facility] RDW 12.2 11.5 - 14.5 % 06/06/2016 4:12 PM CDT [facility] [employer] - [facility] RDW-STDEV 40.6 37.1 - 48.7 fL 06/06/2016 4:12 PM CDT [facility] - [facility] PLATELETS 247 140 - 350 K/uL 06/06/2016 4:12 PM CDT [facility] [employer] - [facility] MPV 10.5 9.3 - 12.4 fL 06/06/2016 4:12 PM CDT [facility] [employer] - . [facility] NEUTROPHILS 60 % 06/06/2016 4:12 PM CDT [facility] [employer] - . [facility] LYMPHOCYTES 30 % 06/06/2016 4:12 PM CDT [facility] [employer] - . [facility] MONOCYTES 8 % 06/06/2016 4:12 PM CDT [facility] [employer] - . [facility] EOSINOPHILS 1 % 06/06/2016 4:12 PM CDT [facility] [employer] - . [facility] BASOPHILS 0 % 06/06/2016 4:12 PM CDT [facility] [employer] - . [facility] NEUTROPHIL ABSOLUTE 3.31 1.90 - 7.00 K/uL 06/06/2016 4:12 PM CDT [facility] - . [facility] LYMPHOCYTE ABSOLUTE 1.67 0.70 - 4.50 K/uL 06/06/2016 4:12 PM CDT [facility] [employer] - . [facility] MONOCYTE ABSOLUTE 0.44 0.10 - 1.30 K/uL 06/06/2016 4:12 PM CDT [facility] [employer] - . [facility] EOSINOPHIL ABSOLUTE 0.05 0.00 - 0.70 K/uL 06/06/2016 4:12 PM CDT [facility] BASOPHILS ABSOLUTE 0.02 0.00 - 0.20 K/uL 06/06/2016 4:12 PM CDT [facility] SERVICES - [facility] IMMATURE GRANULOCYTES 1 % 06/06/2016 4:12 PM CDT [facility] SERVICES - [facility] Comment:IG (Immature Granulo cyte) count includes Metamyelocytes, Myelocytes, and Promyelocytes IMMATURE GRANULOCYTES ABSOLUTE 0.03 0.00 - 0.03 K/uL 06/06/2016 4:12 PM CDT [facility]ORY SERVICES [facility] Blood Collection / Unknown 06/06/2016 9:39 AM CDT 06/06/2016 3:34 PM CDT Annalisa Christopher MD HEMATOLOGY ORDERABLE S [facility]ATORY SERVICES [facility]# [id number] 5 [facility] [place] [address] * (ABNORMAL) COMPREHENSIVE METABOLIC PANEL (06/06/2016 9:39 AM CDT) SODIUM 140 136 - 145 mmol/L 06/06/2016 5:13 PM CDT [facility] SERVICES [facility] POTASSIUM 5.2(H) 3.5 - 5.0 mmol/L 06/06/2016 5:13 PM CDT [facility] SERVICES [facility] Comment: No significant hemolysis. CHLORIDE 103 98 - 107 mmol/L 06/06/2016 5:13 PM CDT [facility] SERVICES [facility] CO2 20(L) 22 - 29 mmol/L 06/06/2016 5:13 PM CDT [facility] SERVICES [facility] CALCIUM 9.5 8.6 - 10.2 mg/dL 06/06/2016 5:13 PM CDT [facility] SERVICES - [facility] BUN 12 6 - 20 mg/dL 06/06/2016 5:13 PM CDT [facility] SERVICES - [facility] CREATININE 0.76 0.51 - 0.95 mg/dL 06/06/2016 5:13 PM CDT [facility] SERVICES [facility] GLUCOSE 97 74 - 99 mg/dL 06/06/2016 5:13 PM CDT [facility] TOTAL PROTEIN 7.4 6.7 - 8.6 g/dL 06/06/2016 5:13 PM T [facility]ATORY SERVICES - [facility] ALBUMIN 4.5 3.5 - 5.2 g/dL 06/06/2016 5:13 PM [facility] LABORATORY SERVICES - [facility] BILIRUBIN TOTAL 0.3 0.3 - 1.2 mg/dL 06/06/2016 5:13 PM T [facility] LABORATORY SERVICES - [facility] ALKALINE PHOSPHATASE 73 35 - 104 U/L 06/06/2016 5:13 PM T [facility] SERVICES - [facility] AST 21 <33 U/L 06/06/2016 5:13 PM T [facility]ORY SERVICES - [facility] ALT 25 <34 U/L 06/06/2016 5:13 PM [facility] LABORATORY [facility] GFR >60 >=60 mL/min/1.7 3 sq meter 06/06/2016 5:13 PM [facility] LABORATORY SERVICES - [facility] Comment: eGFR has not been validated [...] GFR, >60 >=60 mL/min/1.7 3 sq meter 06/06/2016 5:13 PM T [facility]ORY SERVICES - [facility] ANION GAP 17(H) 8 - 16 mmol/L 06/06/2016 5:13 PM [facility] LABORATORY SERVICES - [facility] Blood Collection / Unknown 06/06/2016 9:39 AM CDT 06/06/2016 3:34 PM CDT Annalisa Christopher MD CHEMISTRY ORDERABLES [facility] LABORATORY SERVICES [facility] CLIA# [id number] [address] [place] [address] * (ABNORMAL) LIPID PANEL (06/06/2016 9:39 AM CDT) CHOLESTEROL 199 <200 mg/dL 06/06/2016 5:03 PM CDT [facility] [employer] [facility] TRIGLYCERIDE 55 <150 mg/dL 06/06/2016 5:03 PM T [facility] [employer] [facility] HDL 55 40 - 59 mg/dL 06/06/2016 5:03 PM T [facility] [employer] [facility] LDL CALCULATED 133(H) <100 mg/dL 06/06/2016 5:03 PM T [facility] [employer] [facility] NON-HDL CHOLESTEROL 144(H) <130 mg/dL 06/06/2016 5:03 PM T [facility] [employer] [facility] Blood Collection / Unknown 06/06/2016 9:39 AM CDT 06/06/2016 3:34 PM CDT Narrative [facility] - 06/06/2016 5:03 PM CDT TOTAL CHOLESTEROL ??mg/dL ??Desirable <200 [...] Panels (NCEP/AMA) Annalisa Christopher MD CHEMISTRY ORDERABLES [facility] [employer] [facility]# [id number] [address] [place] [address] documented in this encounter Visit Diagnoses Diagnosis Preventative health care- Primary Routine general medical examination at a health care facility PTSD (post-traumatic stress disorder) Posttraumatic stress disorder Allergic rhinitis due to pollen documented in this encounter Additional Health Concerns Assessment Noted Time PHQ-9 Depression Total Score: 1 06/06/20 16 9:00 AM CDT documented as of this encounter Care Teams Dairy Bar Manager Relationship Specialty Start Date End Date Annalisa Christopher MD [address] [place] [address] PCP - General 07/07/08 documented as of this encounter
--- OUTSIDE RECORDS SUMMARY | 2024-10-06 18:14 | XMS_ITS | Encounter Summary ---
Author Organization [facility] Address [address] [place] [address] Care Team Providers Care Blood Bank Laboratory Technician Name Role Phone Annalisa Christopher MD Primary Care Provider [phone] Reason for Visit * Reason Onset Date Comments Upper Respiratory Symptoms 09/09/2015 Encounter Details Date Type Department Care Team (Late st Contact Info) Description 09/09/2015 Telephone [facility] Primary Care - [address] [place] [address] Annalisa Christopher MD [address] [place] [address] [address] [place] [address] Upper Respiratory Symptoms Social History [...] * Telephone Encounter - Kathleen Harmon - 09/09/2015 4:47 PM CST Spoke to pt ZEN PARTICIPATION SPECIALIST * Telephone Encounter - Annalisa Christopher MD - 09/09/2015 4:31 PM CST Z-elizabeth sent ZEN PARTICIPATION SPECIALIST * Telephone Encounter - Tiana Brothers - 09/09/2015 8:53 AM CITIZEN PARTICIPATION SPECIALIST Sinus drainage,headache,using otc medication, coughing,sore throat, sinus pressure above eyes, no body aches, sx x 2 wk's, asking for rx mimi 05/01/15 ZEN PARTICIPATION SPECIALIST documented in this encounter Plan of Treatment Upcoming Encounters Date Type Department Care Team (Late st Contact Info) Description 04/25/2025 8:20 AM CDT Office Visit [facility] Primary Care - [facility] [address] [facility] [address] [place] [address] Annalisa Christopher MD [address] [facility] [address] [place] [address] documented as of this encounter Visit Diagnoses Not on filedocumented in this encounter Care Teams Blood Bank Laboratory Technician Relationship Specialty Start Date End Date Annalisa Christopher MD [address] [facility] [address] [place] [address] PCP - General 07/07/08 documented as of this encounter
--- OUTSIDE RECORDS SUMMARY | 2024-10-06 18:14 | XMS_ITS | Encounter Summary ---
Author Organization [facility] Address [address] [place] [address] Care Team Providers Care Network Consultant Name Role Phone Annalisa Christopher MD Primary Care Provider [phone] Reason for Visit * Reason Onset Date Comments Question 03/02/2017 Encounter Details Date Type Department Care Team (Late st Contact Info) Description 03/02/2017 Telephone [facility] Primary Care - [address] [place] [address] Annalisa Christopher MD [address] [place] [address] [address] [place] [address] Question Social History Tobacco Use [...] encounter Miscellaneous Notes * Telephone Encounter - Annalisa Christopher MD - 03/02/2017 6:33 PM CDT noted * Telephone Encounter - Emely Cuadra - 03/02/2017 5:38 PM CDT Pt lives by [facility] and is going to look for bench precision assembler by her. [place] is [place] far for her. * Telephone Encounter - Annalisa Christopher MD - 03/02/2017 5:05 PM CDT Please tell patient that the blood test is just an orientation testing - not complete allergy testing Next step should be technical maintenance specialist referral for the skin testing and they will ask her to stop her allergy meds prior to that Offer Dr. Carter Allergy referral [address], [place], [place] [id number] [phone] * Telephone Encounter - Kathleen Harmon - 03/02/2017 9:45 AM CDT Pt had allergy panel done Pt said her test came back normal--asking if she should cont with the dymista? Also would the dymista effect this test? documented in this encounter Plan of Treatment Upcoming Encounters Date Type Department Care Team (Late st Contact Info) Description 04/25/2025 8:20 AM CDT Office Visit [facility] Primary Care - [address] [place] [address] Annalisa Christopher MD [address] [place] [address] [place] [address] documented as of this encounter Visit Diagnoses Not on filedocumented in this encounter Additional Health Concerns Assessment Noted Time PHQ-9 Depression Total Score: 1 06/06/20 16 9:00 AM CDT documented as of this encounter Care Teams Network Consultant Relationship Specialty Start Date End Date Annalisa Christopher MD [address] [facility] [address] [place] [address] PCP - General 07/07/08 documented as of this encounter
--- OUTSIDE RECORDS SUMMARY | 2024-10-06 18:14 | XMS_ITS | Encounter Summary ---
Author Organization [facility] Address [address] [place] [address] Care Team Providers Care Supervisor Pressing Department Name Role Phone Annalisa Christopher MD Primary Care Provider [phone] Reason for Visit * Reason Onset Date Comments Medication Refill 05/27/2016 Encounter Details Date Type Department Care Team (Late st Contact Info) Description 05/27/2016 Refill [facility] Primary Care - [address] [place] [address] Annalisa Christopher MD [address] [place] [address] [place] [address] Social History Tobacco Use Types Packs/Day [...] * Telephone Encounter - Kathleen Harmon - 05/27/2016 4:57 PM CDT lmor for pharm lmor for pt * Telephone Encounter - Annalisa Christopher MD - 05/27/2016 4:47 PM CDT #20 pills only - please call in * Telephone Encounter - Alva Alvares - 05/27/2016 4:40 PM CDT MK Needs appt But will you refill? * Telephone Encounter - Emely Cuadra - 05/27/2016 3:13 PM CDT Pt has had a tough year Lost spouse 15 years ago hasnt had to have diazepam for awhile. Asking if could be refilled? documented in this encounter Plan of Treatment Upcoming Encounters Date Type Department Care Team (Late st Contact Info) Description 04/25/2025 8:20 AM CDT Office Visit [facility] Primary Care - [facility] [address] [facility] [address] [place] [phone] Annalisa Christopher MD [address] [facility] [address] [place] [address] documented as of this encounter Visit Diagnoses Not on filedocumented in this encounter Care Teams Supervisor Pressing Department Relationship Specialty Start Date End Date Annalisa Christopher MD [address] [facility] [address] [place] [address] PCP - General 07/07/08 documented as of this encounter
--- OUTSIDE RECORDS SUMMARY | 2024-10-06 18:14 | XMS_ITS | Encounter Summary ---
Author Organization [facility] Address [address] [place] [address] Care Team Providers Care Document Examiner Name Role Phone Annalisa Christopher MD Primary Care Provider [phone] Reason for Visit * Reason Onset Date Comments Wants Appointment 05/01/2015 Encounter Details Date Type Department Care Team (Late st Contact Info) Description 05/01/2015 Telephone [facility] Primary Care - [address] [place] [address] Annalisa Christopher MD [address] [place] [address] [address] [place] [address] Wants Appointment Social History Tobacco [...] encounter Miscellaneous Notes * Telephone Encounter - Denisse Menchaca - 05/01/2015 10:21 AM CDT Patient decided to go to urgent care * Telephone Encounter - Snajana Tompkins - 05/01/2015 9:22 AM CDT You have a 10:45 am is on hold is that ok to use? * Telephone Encounter - Annalisa Christopher MD - 05/01/2015 9:09 AM CDT Do we have any openings at that time? * Telephone Encounter - Sanjana Tompkins - 05/01/2015 8:51 AM CDT Pt is wanting to know if she could be seen this morning Pt asthma is acting up and the uri is not improving Pt dtr pnmounia but has been on medication Will be in the building for a 9:30 won for dtr and would like to be seen here after that if possible 10:30 am documented in this encounter Plan of Treatment Upcoming Encounters Date Type Department Care Team (Late st Contact Info) Description 04/25/2025 8:20 AM CDT Office Visit [facility] Primary Care - [facility] [address] [facility] [address] [place] [address] Annalisa Christopher MD [address] [facility] [address] [place] [address] documented as of this encounter Visit Diagnoses Not on filedocumented in this encounter Care Teams Document Examiner Relationship Specialty Start Date End Date Annalisa Christopher MD [address] [facility] [address] [place] [address] PCP - General 07/07/08 documented as of this encounter
--- OUTSIDE RECORDS SUMMARY | 2024-10-06 18:14 | XMS_ITS | Encounter Summary ---
Author Organization [facility] Address [address] [place] [address] Care Team Providers Care Floor Supervisor Name Role Phone Annalisa Christopher MD Primary Care Provider [phone] Reason for Visit * Reason Comments Flank Pain Urinary Frequency Encounter Details Date Type Department Care Team (Latest Contact Info) Description 03/10/2015 10:30 AM CDT Clinical Support [facility] Care - [address] [address] Nurse, Primary Care [place] Frequency of urination (Primary Dx); Flank pain Social History Tobacco Use Types Packs/Day Years [...] as of this encounter Progress Notes * Nakia Kramer - 03/10/2015 10:56 AM CDT Pt is here to leave a urine sample documented in this encounter Miscellaneous Notes * Addendum Note - Nakia Kramer - 03/10/2015 11:03 AM CDTAddended by: NAKIA KRAMER on: 03/10/2015 11:03 AM Modules accepted: Orders documented in this encounter Plan of Treatment Upcoming Encounters Date Type Department Care Team (Late st Contact Info) Description 04/25/2025 8:20 AM CDT Office Visit [facility] Primary Care - [facility] [address] [facility] [address] [place] [address] Annalisa Christopher MD [address] [facility] [address] [place] [address] documented as of this encounter Procedures Procedure Name Priority Date/Time Associated Diagnosis Comments POC URINALYSIS DIPSTICK NON AUTOMATED Routine 03/10/2015 10:59 AM CDT Frequency of urination URINE CULTURE Routine 03/10/2015 10:59 AM CDT Frequency of urination documented in this encounter Results * URINE CULTURE (03/10/2015 10:59 AM CDT) CULTURE No growth at 24 hours JESSICA METHOD AEROBIC CULTURE 03/11/2015 10:23 AM CDT [facility] Urine URINE SPECIMEN OBTAINED BY CLEAN CATCH PROCEDURE / Unknown Collection / Unknown 03/10/2015 10:59 AM CDT 03/10/2015 3:22 PM CDT eMry Villanueva VENEER JOINTER RETURNER- MICROBIOLOGY - G ENERAL ORDERABLES [facility] CLIA# [id number] [address] [facility] [place] [address] * (ABNORMAL) POC URINALYSIS DIPSTICK NON AUTOMATED (03/10/2015 10:59 AM CDT) COLOR UA Straw(A) Pale to Dark Yellow [facility] CLARITY UA Clear Clear [facility] SPECIFIC GRAVITY UA 1.005 1.003 - 1.035 [facility] PH UA 7.0 5.0 - 8.0 [facility] LEUKOCYTE ESTERASE UA Trace(A) Negative [facility] NITRITE UA Negative Negative [facility] PROTEIN UA Negative Negative [facility] GLUCOSE UA Negative Negative [facility] KETONES UA Negative Negative [facility] UROBILINOGEN UA 0.2 <2.0 mg/dL [facility] BILIRUBIN UA Negative Negative [facility] BLOOD UA Trace(A) Negative [facility] Urine specimen (specimen) 03/10/2015 10:59 AM CDT Mery Villanueva VENEER JOINTER RETURNER- POINT OF CARE TE [facility] documented in this encounter Visit Diagnoses Diagnosis Frequency of urination- Primary Urinary frequency Flank pain Abdominal pain, unspecified site documented in this encounter Care Teams Floor Supervisor Relationship Specialty Start Date End Date Annalisa Christopher MD [address] [place] [address] PCP - General 07/07/08 documented as of this encounter
--- OUTSIDE RECORDS SUMMARY | 2024-10-06 18:14 | XMS_ITS | Encounter Summary ---
Author Organization [facility] Address [address] [place] [address] Care Team Providers Care Rag Inspector Name Role Phone Annalisa Christopher MD Primary Care Provider [phone] Reason for Visit * Reason Onset Date Comments Upper Respiratory Symptoms 11/17/2015 Encounter Details Date Type Department Care Team (Late st Contact Info) Description 11/17/[address] [facility] Primary Care - [address] [place] [address] Annalisa Christopher MD [address] [place] [address] [address] [place] [address] Upper Respiratory Symptoms Social History [...] * Telephone Encounter - Sanjana Tompkins - 11/17/2015 11:01 AM CST Called pt script sent to pharmacy Pt will call for an appointment if no improvement. ITUTIONAL COOK * Telephone Encounter - Annalisa Christopher MD - 11/17/2015 9:28 AM CST Z-elizabeth sent OV if no better ITUTIONAL COOK * Telephone Encounter - Emely Cuadra - 11/17/2015 8:44 AM CST Pressure around eyes, drainage, sneezing, green nasal roseline, cough from drainage, no fever Moura, no earache x 2wks Asking for rx Using netti pot Sinus d GRIFFIN 03/05/15 MK ITUTIONAL COOK documented in this encounter Plan of Treatment Upcoming Encounters Date Type Department Care Team (Late st Contact Info) Description 04/25/2025 8:20 AM CDT Office Visit [facility] Primary Care - [facility] [address] [facility] [address] [place] [address] Annalisa Christopher MD [address] [facility] [address] [place] [address] documented as of this encounter Visit Diagnoses Not on filedocumented in this encounter Care Teams Rag Inspector Relationship Specialty Start Date End Date Annalisa Christopher MD [address] [facility] [address] [place] [address] PCP - General 07/07/08 documented as of this encounter
--- OUTSIDE RECORDS SUMMARY | 2024-10-06 18:14 | XMS_ITS | Encounter Summary ---
Author Organization [facility] Address [address] [place] [address] Care Team Providers Care Scraper Burrer Name Role Phone Annalisa Christopher MD Primary Care Provider [phone] Reason for Visit * Outpatient Services (Routine) - Closed Specialty Diagnoses / Procedures Referred By Contac t Referred To Contact Radiology Diagnoses / Procedures XR HEAD Annalisa Christopher MD [address] [place] [address] [facility] Radiology [place] [address] [place] [address] Referral ID Status Reason Start Date Expiration Date Visits Re quested Visits Authorized [id number] Closed 12/17/2015 01/16/2017 1 1 Encounter Details Date Type Department Care Team (Latest Contact Info) Description 12/17/2015 12:25 PM CDT - 12/17/2015 11:59 PM CDT Hospital Encounter [facility] [place] [address] [facility] [address] [place] [address] Annalisa Christopher MD [address] [place] [address] Discharge Disposition: Home or Self [...] Sig Dispensed Refills Start Date End Date levonorgestreL (MIRENA) 20 mcg/24 hours (7 yrs) 52 mg IUD by Intrauterine route. cephALEXin (KEFLEX) 500 mg capsuleIndications:Acu te recurrent maxillary sinusitis Take 1 Capsule (500 mg) by mouth 4 times daily for 10 days. 40 Capsule 0 12/17/2015 12/27/2015 methylPREDNISolone (MEDROL DOSPACK) 4 mg Tablets, Dose PackIndications:Recurr ent acute serous otitis media of both ears Medrol elizabeth. 1 Package 0 12/17/2015 06/06/2016 lcxmhegp-glcmgjjqv-mbq rocortisone (CORTISPORIN) 3.5-10,000-10 mg-unit-mg/mL suspensionIndications: Acute bacterial conjunctivitis of both eyes Administer 2 Drops in both eyes every 6 hours. 7.5 mL 0 12/17/2015 06/06/2016 codeine-guaiFENesin (CHERATUSSIN AC) 10-100 mg/5 mL Liquid Take 10 mL by mouth every 4 hours as needed for Cough. 480 mL 0 12/08/2015 06/06/2016 CETIRIZINE HCL (ZYRTEC ORAL) Take by mouth. 01/13/2017 albuterol sulfate 90 mcg inhalerIndications:Cou gh Take 2 Puffs by inhalation every 6 hours as needed for Shortness of Breath. 6.7 Gram 1 05/01/2015 01/02/2017 fluticasone (FLONASE) 50 mcg/spray [place], Suspension SPRAY TWICE IN EACH NOSTRIL EVERY DAY. 16 Gram 1 01/12/2015 01/13/2017 diazepam (VALIUM) 5 mg Oral tablet Take 1 Tab by mouth 1 time daily as needed for Anxiety. 30 Tab 0 12/09/2011 05/27/2016 documented as of this encounter Plan of Treatment Upcoming Encounters Date Type Department Care Team (Late st Contact Info) Description 04/25/2025 8:20 AM CDT Office Visit [facility] - [address] [place] [address] Annalisa Christopher MD [address] [place] [address] documented as of this encounter Procedures Procedure Name Priority Date/Time Associated Diagnosis Comments XR SINUSES 3+ VW Routine 12/17/2015 12:3 6 PM CDT Acute recurrent maxillary sinusitis documented in this encounter Results * XR SINUSES 3+ VW (12/17/2015 12:36 [...] encounter Visit Diagnoses Diagnosis Acute recurrent maxillary sinusitis Acute maxillary sinusitis documented in this encounter Care Teams Scraper Burrer Relationship Specialty Start Date End Date Annalisa Christopher MD [address] [place] [address] PCP - General 07/07/08 documented as of this encounter
--- OUTSIDE RECORDS SUMMARY | 2024-10-06 18:14 | XMS_ITS | Encounter Summary ---
Author Organization [facility] Address [address] [place] [address] Care Team Providers Care Public Housing Interviewer Name Role Phone Annalisa Christopher MD Primary Care Provider [phone] Reason for Visit * Reason Onset Date Comments Results 12/22/2015 Encounter Details Date Type Department Care Team (Late st Contact Info) Description 12/22/2015 Telephone [facility] Primary Care - [facility] [address] [place] [address] [address] [place] [address] Annalisa Christopher MD [address] [place] [address] [address] [place] [address] Results Social History Tobacco Use [...] * Telephone Encounter - Josefina Morales - 12/22/2015 9:23 AM CDT Spoke with pt * Telephone Encounter - Josefina Morales - 12/22/2015 9:22 AM CDT ----- Message from Annalisa Christopher MD sent at 12/21/2015 8:58 PM CDT ----- Normal sinus XR documented in this encounter Plan of Treatment Upcoming Encounters Date Type Department Care Team (Late st Contact Info) Description 04/25/2025 8:20 AM CDT Office Visit [facility] Primary Care - [facility] [address] [facility] [address] [place] [address] Annalisa Christopher MD [address] [facility] [address] [place] [address] documented as of this encounter Visit Diagnoses Not on filedocumented in this encounter Care Teams Public Housing Interviewer Relationship Specialty Start Date End Date Annalisa Christopher MD [address] [facility] [address] [place] [address] PCP - General 07/07/08 documented as of this encounter
--- OUTSIDE RECORDS SUMMARY | 2024-10-06 18:14 | XMS_ITS | Encounter Summary ---
Author Organization [employer] Address [address] [place] [address] Care Team Providers Care Trimmer Helper Name Role Phone Annalisa Christopher MD Primary Care Provider [phone] Reason for Visit * Eval and Treat (Routine) - Closed Specialty Diagnoses / Procedures Referred By Contac t Referred To Contact Audiology Diagnoses Hearing loss, bilateral Annalisa Christopher MD [address] [facility] [address] [place] [address] Vandana Velazquez AU.D [address] [place] [address] Referral ID Status Reason Start Date Expiration Date V isits Requested Visits Authorized [id number] Closed CRS To Schedule (STL) 03/09/2015 09/08/2015 1 1 Encounter Details Date Type Department Care Team (Latest Contact Info) Description 03/19/2015 10:52 AM CDT - 03/19/2015 11:59 PM CDT Hospital Encounter [facility] [place] [facility] [address] [place] [address] Janine Linda AU.D [address] [facility] [address] [place] [address] Vandana Velazquez AU.D [address] [place] [address] Discharge Disposition: Home or Self Care Social [...] yrs) 52 mg IUD by Intrauterine route. fluticasone (FLONASE) 50 mcg/spray [place], Suspension SPRAY TWICE IN EACH NOSTRIL EVERY DAY. 16 Gram 1 01/12/2015 01/13/2017 diazepam (VALIUM) 5 mg Oral tablet Take 1 Tab by mouth 1 time daily as needed for Anxiety. 30 Tab 0 12/09/2011 05/27/2016 documented as of this encounter Procedure Notes * Janine Marshall AU.D - 03/19/2015 11:27 AM CDT Images from the original note were not included. Report of Audiologic Evaluation Patient Name: Fabiana Pryor Date of : 1975 Test Date: 03/19/2015 Referring Physician: Dr. Annalisa Christopher History: Fabiana was seen today for a diagnostic hearing evaluation. She reports concerns regarding her hearing. Fabiana states she has a significant history of sinus issues. There is family history of hearing loss. Her father and paternal grandmother have hearing loss. She denies an exposure to loud noises. She does not report any pressure in her ears or ear pain. Fabiana does experience intermittent tinnitus. Otoscopy: RIGHT: Tympanic Membrane Visualized LEFT: Tympanic Membrane Visualized Tympanogram: RIGHT: Peaked with normal tympanic peak pressure, normal ear canal volume and normal tympanic membrane mobility, consistent with normal middle ear function. LEFT: Peaked with normal tympanic peak pressure, normal ear canal volume and normal tympanic membrane mobility, consistent with normal middle ear function. Behavioral Audiometry: Reliability: Good Headphone/ Transducer type:insert headphones Pure Tone Thresholds: RIGHT: Responses to pulsed pure tones revealed normal hearing at 250 Hz through 8000 Hz. A slight air-bone gap was noted at 4000 Hz. LEFT: Responses to pulsed pure tones revealed normal hearing at 250 Hz through 8000 Hz. A slight vek-kqcv-cje was noted at 4000 Hz. Speech Outpatient Psychiatrist Threshold: RIGHT: 15 dB HL LEFT: 15 dB HL Word Recognition Score: RIGHT: 100%% at 55 dB HL with W-22 word list, monitored live voice LEFT: 100%% at 55 dB HL with W-22 word list, monitored live voice. Findings: Tympanograms revealed normal middle ear function, bilaterally. Frequency specific testing revealed normal hearing, bilaterally, for the frequency range of 250 Hz through 8000 Hz. A slight air-bone gap was noted at 4000 Hz, bilaterally. Speech reception agent thresholds are normal, bilaterally, and are ingood agreement with frequency specific findings. Fabiana's word recognition ability is excellent, bilaterally. Recommendations: 1) Follow-up with referring physician 2) Audiogram as medically indicated 3) Hearing protection in noise 4) Contact [facility] Audiology with any questions or concerns [phone] Clinical Forest Nursery Worker [facility] Department of Audiology documented in this encounter Plan of Treatment Upcoming Encounters Date Type Department Care Team (Late st Contact Info) Description 04/25/2025 8:20 AM CDT Office Visit [facility] Primary Care - [address] [place] [phone] Annalisa Christopher MD [address] [place] [address] [place] [address] Scheduled Referrals Name Type Priority Associated Diagnoses Orde r Schedule AMB REFERRAL TO AUDIOLOGY Outpatient Referral Routine Hearing loss, bilateral Ordered: 03/05/2015 documented as of this encounter Visit Diagnoses Not on filedocumented in this encounter Care Teams Trimmer Helper Relationship Specialty Start Date End Date Annalisa Christopher MD [address] [facility] [address] [place] [phone] PCP - General 07/07/08 documented as of this encounter
--- OUTSIDE RECORDS SUMMARY | 2024-10-06 18:14 | XMS_ITS | Encounter Summary ---
Author Organization [facility] Address [address] [place] [address] Care Team Providers Care Jockey Room Custodian Name Role Phone Annalisa Christopher MD Primary Care Provider [phone] Reason for Referral * Outpatient Services (Routine) - Closed Specialty Diagnoses / Procedures Referred By Bairon boone Referred To Contact CT Scan Diagnoses Allergic rhinitis due to pollen, unspecified rhinitis seasonality Sinus pain Bilateral acute serous otitis media, recurrence not specified Procedures CT SINUS FACIAL BONES WO CONTRAST Mery Villanueva, JUAN-GINNA [address] [facility] [address] [place] [address] Referral ID Status Reason Start Date Expiration Date V isits Requested Visits Authorized [id number] Closed [facility] CTS 01/16/2017 03/02/2017 1 1 Reason for Visit * Auth/Cert Specialty Diagnoses / Procedures Referred By Bairon boone Referred To Contact Radiology [facility] [place] [address] [place] [address] Referral ID Status Reason Start Date Expiration Date Visits Re quested Visits Authorized [id number] 1 1 Encounter Details Date Type Department Care Team (Latest Contact Info) Description 01/20/2017 1:35 PM CDT - 01/20/2017 11:59 PM CDT Hospital Encounter [facility] CT Scan [place] [address] [place] [address] KayMery Gregorio, METROLOGY ENGINEER-BC [address] [facility] [address] [place] [address] Discharge Disposition: Home or Self Care Social [...] Sig Dispensed Refills Start Date End Date diazePAM (VALIUM) 5 mg tabletIndications:PT SD (post-traumatic stress disorder) Take 1 Tablet (5 mg) by mouth 1 time daily as needed for Anxiety. 20 Tablet 0 06/06/2016 levonorgestreL (MIRENA) 20 mcg/24 hours (7 yrs) 52 mg IUD by Intrauterine route. doxycycline hyclate (VIBRAMYCIN) 100 mg capsule Take 1 Capsule (100 mg) by mouth 2 times daily. 20 Capsule 01/13/2017 05/31/2017 predniSONE (DELTASONE) 20 mg tablet Take 1 Tablet (20 mg) by mouth daily Take 2 tablets daily with food. 20 Tablet 01/13/2017 05/31/2017 azelastine-fluticaso ne (DYMISTA) 137-50 mcg/spray [place], Non-Aerosol Administer 1 [place] in each nostril 2 times daily. 23 Gram 5 01/13/2017 08/06/2018 montelukast (SINGULAIR) 10 mg tablet Take 1 Tablet (10 mg) by mouth daily at bedtime. 30 Tablet 5 01/02/2017 08/06/2018 albuterol HFA 90 mcg inhalerIndications:C ough Take 2 Puffs by inhalation every 6 hours as needed for Shortness of Breath. 6.7 Gram 1 01/02/2017 03/06/2018 escitalopram oxalate (LEXAPRO) 10 mg tabletIndications:PT SD (post-traumatic stress disorder) Take 1 Tablet (10 mg) by mouth daily. 30 Tablet 11 06/06/2016 05/24/2017 documented as of this encounter Plan of Treatment Upcoming Encounters Date Type Department Care Team (Late st Contact Info) Description 04/25/2025 8:20 AM CDT Office Visit [facility] Care - [facility] [address] [place] [address] Annalisa Christopher MD [address] [place] [address] documented as of this encounter Procedures Procedure Name Priority Date/Time Associated Diagnosis Comments CT SINUS FACIAL BONES WO CONTRAST Routine 01/20/2017 2:00 PM CDT Allergic rhinitis due to pollen, unspecified rhinitis seasonality Sinus pain Bilateral acute serous otitis media, recurrence not specified documented in this encounter Results * CT SINUS FACIAL BONES WO CONTRAST (01/20/2017 2:00 PM CDT) Anatomical Region Laterality Modality Head Computed Tomogra phy 01/20/2017 2:04 PM CDT Impressions 01/20/2017 4:07 PM CDT IMPRESSION: Unremarkable sinus CT DICTATION LOCATION: Location 1 - [facility] Narrative 01/20/2017 4:[address] SINUS WITHOUT CONTRAST WITH REFORMATTED IMAGES DATE: 01/20/2017 2:00 PM HISTORY: Allergic rhinitis due to pollen, unspecified rhinitis seasonality,Sinus pain,Bilateral acute serous otitis media, recurrence not specified COMPARISON: None. ?? TECHNIQUE: Multislice helical with reformats FINDINGS: Paranasal sinuses are well aerated. There is prominent pneumatization of the sphenoid wings, right greater than left. There is pneumatization of the petrous apices. Visible portions of the mastoid air cells and middle ears are well aerated. Maxillary sinuses are well aerated. Ethmoid air cells and frontal sinuses are well aerated. Orbits are intact. No fractures are appreciated. Ostiomeatal units are patent. Frontal sinus drainage pathways are patent. Sphenoethmoidal recesses are patent. Procedure Note Skinny Lemus MD - 01/20/2017 CT SINUS WITHOUT CONTRAST WITH REFORMATTED IMAGES DATE: 01/20/2017 2:00 PM HISTORY: Allergic rhinitis due to pollen, unspecified rhinitis seasonality,Sinus pain,Bilateral acute serous otitis media, recurrence not specified COMPARISON: None. TECHNIQUE: Multislice helical with reformats FINDINGS: Paranasal sinuses are well aerated. There is prominent pneumatization of the sphenoid wings, right greater than left. There is pneumatization of the petrous apices. Visible portions of the mastoid air cells and middle ears are well aerated. Maxillary sinuses are well aerated. Ethmoid air cells and frontal sinuses are well aerated. Orbits are intact. No fractures are appreciated. Ostiomeatal units are patent. Frontal sinus drainage pathways are patent. Sphenoethmoidal recesses are patent. IMPRESSION IMPRESSION: Unremarkable sinus CT DICTATION LOCATION: Location [address] [place] [address] Mery Jyoti Kay METROLOGY ENGINEER-BC CT ORDERABLES documented in this encounter Visit Diagnoses Diagnosis Allergic rhinitis due to pollen, unspecified rhinitis seasonality Sinus pain Other diseases of nasal cavity and sinuses Bilateral acute serous otitis media, recurrence not specified documented in this encounter Additional Health Concerns Assessment Noted Time PHQ-9 Depression Total Score: 1 06/06/20 16 9:00 AM CDT documented as of this encounter Care Teams Jockey Room Custodian Relationship Specialty Start Date End Date Annalisa Christopher MD [address] [place] [address] PCP - General 07/07/08 documented as of this encounter
--- OUTSIDE RECORDS SUMMARY | 2024-10-06 18:14 | XMS_ITS | Encounter Summary ---
Author Organization [facility] Address [address] [place] [address] Care Team Providers Care Fashion Styling Intern Name Role Phone Annalisa Christopher MD Primary Care Provider [phone] Reason for Visit * Reason Comments Dysuria for the past 2 days. Siria Kelly RN 07/12/15 1530 * Auth/Cert Specialty Diagnoses / Procedures Referred By Bairon boone Referred To Contact Urgent Care Diagnoses UTI [facility] [address] [address] Referral ID Status Reason Start Date Expiration Date Visits Re quested Visits Authorized [id number] 1 1 Encounter Details Date Type Department Care Team (Late st Contact Info) Description 07/12/2015 3:25 PM CDT Office Visit [address] [address] Dena Al MD 1 [place] [address] Dysuria (Primary Dx); Frequency of urination; Urinary tract infection without hematuria, site unspecified Social History Tobacco Use Types Packs/Day Years [...] Sign Reading Time Taken Comments Blood Pressure 120/75 07/12/2015 3:32 PM CDT Pulse 83 07/12/2015 3:32 PM CDT Temperature 36.4 ??C (97.6 ??F) 07/12/2015 3:32 PM CD T Respiratory Rate 16 07/12/2015 3:32 PM CDT Oxygen Saturation 100% 07/12/2015 3:32 PM CDT Inhaled Oxygen Concentration - - Weight 72.6 kg (160 lb) 07/12/2015 3:32 PM CDT Height 170.2 cm (5' 7 ) 07/12/2015 3:32 PM CDT Body Mass Index 25.06 07/12/2015 3:32 PM CDT documented in this encounter Progress Notes * Dena Al MD - 07/12/2015 3:37 PM CDT HISTORY OF PRESENT ILLNESS Fabiana Pryor, a 40 y.o. female. Subjective Chief Complaint Patient presents with ??? Dysuria for the past 2 days. Siria Kelly RN 07/12/15 1530 C/o urinary urgency and frequency for the past 2 days. Denies burning. C/o pressure in bladder. Trace blood in urine. Mild back pain. No fever. Skin pink, w/d. The history is provided by the patient. No non profit director was used. REVIEW OF SYSTEMS Review of Systems Constitutional: Negative for fever and chills. Genitourinary: Positive for dysuria, urgency, frequency and hematuria. Negative for vaginal bleeding, vaginal discharge and dyspareunia. Neurological: Negative for dizziness and light-headedness. Current Outpatient Prescriptions on File Prior to Visit Medication Sig Dispense Refill ??? codeine-guaiFENesin (CHERATUSSIN AC) 10-100 mg/5 mL Liquid Take 10 mL by mouth every 4 hours asneeded for Cough. 480 mL 0 ??? CETIRIZINE HCL (ZYRTEC ORAL) Take by mouth. ??? albuterol sulfate 90 mcg inhaler Take 2 Puffs by inhalation every 6 hours as needed for Shortness of Breath. 6.7 Gram 1 ??? fluticasone (FLONASE) 50 mcg/spray May, Suspension SPRAY TWICE IN EACH NOSTRIL EVERY DAY. 16 Gram 1 ??? Levonorgestrel (MIRENA) 20 mcg/24 hr Intrauterine IUD by Intrauterine route. No current facility-administered medications on file prior to visit. Allergies Allergen Reactions ??? Sulfa (Sulfonamide Antibiotics) Hives Past Medical History Diagnosis Date ??? Temporomandibular joint disorders, unspecified occasional jaw pain/ rare popping ??? Family history of allergic disorder succinylcholine ??? Asthma ??? Allergic rhinitis 08/05/2013 ??? Extrinsic asthma, unspecified 12/27/2007 ??? Migraine 10/07/2010 Past Surgical History Procedure Laterality Date ??? Hx breast augmentation 2006 [facility] ??? Pr dilation/curettage,diagnostic 09/08/2010 DILATATION AND CURETTAGE SUCTION performed by DOUGLAS JEFFREY at [facility] ??? Pr delivery only 2003 ??? Pr delivery only 08/31/2011 SECTION performed by Douglas Jeffrey MD at [facility] Family History Problem Relation Age of Onset ??? Hypertension Father ??? Heart Disease Father NE 60's ??? Stroke Father ??? Diabetes Mother ??? Heart Disease Mother ??? Other Brother Crohn's ??? Breast Cancer Neg Hx ??? Ovarian Cancer Neg Hx ??? Colon Cancer Neg Hx ??? Healthy Daughter History Substance Use Topics ??? Smoking status: Former Smoker Quit date: 07/09/2010 ??? Smokeless tobacco: Never Used ??? Alcohol Use: No Objective PHYSICAL EXAM BP 120/75 mmHg Pulse 83 Temp(Src) 97.6 ??F (36.4 ??C) (Oral) Resp 16 Ht 5' 7 (1.702 m) Wt 160 lb (72.576 kg) BMI 25.05 kg/m2 SpO2 100% Physical Exam Constitutional: She appears well-developed. No distress. HENT: Head: Normocephalic. Right Ear: External ear normal. Mouth/Throat: Oropharynx is clear and moist. Eyes: Pupils are equal, round, and reactive to light. Neck: Normal range of motion. Cardiovascular: Normal rate and regular rhythm. Pulmonary/Chest: Effort normal and breath sounds normal. Abdominal: Soft. There is no tenderness. There is no rebound and no guarding. Musculoskeletal: Normal range of motion. Neurological: She is alert. Assessment ASSESSMENT and PLAN: ICD-9-CM ICD-10-CM 1. Dysuria 788.1 R30.0 POC URINALYSIS DIPSTICK AUTOMATED 2. Frequency of urination 788.41 R35.0 3. Urinary tract infection without hematuria, site unspecified 599.0 N39.0 Fabiana was seen today for dysuria. Diagnoses and associated orders for this visit: Dysuria - POC URINALYSIS DIPSTICK AUTOMATED Frequency of urination Urinary tract infection without hematuria, site unspecified Other Orders - ciprofloxacin HCl (CIPRO) 500 mg tablet; Take 1 Tablet (500 mg) by mouth 2 times daily for 10 days. * Siria Kelly RN - 07/12/2015 3:30 PM CDT C/o urinary urgency and frequency for the past 2 days. Denies burning. C/o pressure in bladder. Trace blood in urine. Mild back pain. No fever. Skin pink, w/d. documented in this encounter Miscellaneous Notes * Patient Instructions - Dena Al MD - 07/12/2015 3:36 PM CDT Images from the original note were not included. Please follow with your primary care physician, Annalisa Christopher MD (General) in 48-72 hours if NO better. If your symptoms worsen recheck at your local ER. If you do not have a primary doctor, [facility] offers a free referral service by calling [phone], , or toll free . This information can also be accessed on the web at [email or web address] plus. If a test or physician referral was ordered for you today, you can schedule these by calling Central Testing Scheduling (CTS),[phone], or Central Referral Scheduling (CRS), during normal work hours. Inform them you had a test or referral ordered during your visit at the [facility]. If you are female and on hormone based control there is a slight increase in risk with the use of antibiotics, the patient is asked to back up her OCP with condom or other method during this (or any) cycle during which she is taking antibiotics. Thank you for choosing to the [facility] Location [address] [place] [address] [place] [address] [phone] [facility] Location [address] [facility] [address] [facility] [address] [place] [address] [place] [address] [phone] [facility] [address] [facility] [address] [place], [place] [id number] IMPORTANT: You were examined and treated today on an urgent basis. This was not a substitute for, nor an effort to provide, complete and ongoing medical care. On arrival to [facility], you may have reported taking home medications that will be listed on your After Visit Summary. If applicable, this regimen is not being changed, except as noted and discussed with you. You should follow up with your primary care physician for ongoing medication management. This AVS (after visit summary) is a printed copy of the form that is part of your permanent electronic medical record. By accepting this form you acknowledge that your tests, diagnosis, treatment plan, and follow up care has been discussed with you by appropriate medical personnel. Thank-you again for choosing [facility]. Urinary Tract Infection in Women: After Your Visit Your Care Instructions A urinary tract infection, or UTI, is a general term for an infection anywhere between the kidneys and the urethra (where urine comes out). Most UTIs are bladder infections. They often cause pain or burning when you urinate. UTIs are caused by bacteria and can be cured with antibiotics. Be sure to complete your treatment so that the infection goes away. Follow-up care is a billings part of your treatment and safety. Be sure to make and go to all appointments, and call your doctor if you are having problems. It's also a good idea to know your test resultsand keep a list of the medicines you take. How can you care for yourself at home? ?? Take your antibiotics as directed. Do not stop taking them just because you feel better. You need to take the full course of antibiotics. ?? Drink extra water and other fluids for the next day or two. This may help wash out the bacteria that are causing the infection. (If you have kidney, heart, or liver disease and have to limit fluids, talk with your doctor before you increase your fluid intake.) ?? Avoid drinks that are carbonated or have caffeine. They can irritate the bladder. ?? Urinate often. Try to empty your bladder each time. ?? To relieve pain, take a hot bath or lay a heating pad set on low over your lower belly or genital area. Never go to sleep with a heating pad in place. To prevent UTIs ?? Drink plenty of water each day. This helps you urinate often, which clears bacteria from your system. (If you have kidney, heart, or liver disease and have to limit fluids, talk with your doctor before you increase your fluid intake.) ?? Consider adding cranberry juice to your diet. ?? Urinate when you need to. ?? Urinate right after you have sex. ?? Change sanitary pads often. ?? Avoid douches, bubble baths, feminine hygiene sprays, and other feminine hygiene products that have deodorants. ?? After going to the bathroom, wipe from front to back. When should you call for help? Call your doctor now or seek immediate medical care if: ?? Symptoms such as fever, chills, nausea, or vomiting get worse or appear for the first time. ?? You have new pain in your back just below your rib cage. This is called flank pain. ?? There is new blood or pus in your urine. ?? You have any problems with your antibiotic medicine. Watch closely for changes in your health, and be sure to contact your doctor if: ?? You are not getting better after taking an antibiotic for 2 days. ?? Your symptoms go away but then come back. Where can you learn more? Go to http://www.Careem.net/patiented. Enter K848 in the search box to learn more about Urinary Tract Infection in Women: After Your Visit. Current as of: June 03, 2014 Content Version: 10.5 ?? [id number] [employer]. Care instructions adapted under license by your healthcare professional. If you have questions about a medical condition or this instruction, always ask your healthcare professional. [employer] disclaims any warranty or liability for your use of this information. documented in this encounter Plan of Treatment Upcoming Encounters Date Type Department Care Team (Late st Contact Info) Description 04/25/2025 8:20 AM CDT Office Visit [facility] Primary Care - [facility] [address] [place] [address] Annalisa Christopher MD [address] [place] [address] documented as of this encounter Procedures Procedure Name Priority Date/Time Associated Diagnosis Comments POC URINALYSIS DIPSTICK AUTOMATED Routine 07/12/2015 3:52 PM CDT Dysuria documented in this encounter Results * (ABNORMAL) POC URINALYSIS DIPSTICK AUTOMATED (07/12/2015 3:52 PM CDT) COLOR UA Yellow Pale to Dark Yellow 07/12/2015 3:40 PM CDT [facility] CLARITY UA Clear Clear 07/12/2015 3:40 PM CDT [facility] SPECIFIC GRAVITY UA 1.020 1.003 - 1.035 07/12/2015 3:40 PM CDT [facility] PH UA 5.5 5.0 - 8.0 07/12/2015 3:40 PM CDT [facility] LEUKOCYTE ESTERASE UA Trace(A) Negative 07/12/2015 3:40 PM CDT [facility] NITRITE UA Negative Negative 07/12/2015 3:40 PM CDT [facility] PROTEIN UA Negative Negative 07/12/2015 3:40 PM CDT [facility] GLUCOSE UA Negative Negative 07/12/2015 3:40 PM CDT [facility] KETONES UA Trace(A) Negative 07/12/2015 3:40 PM CDT [facility] UROBILINOGEN UA 1.0 <2.0 mg/dL 07/12/2015 3:40 PM CDT [facility] BILIRUBIN UA Negative Negative 07/12/2015 3:40 PM CDT [facility] BLOOD UA Trace(A) Negative 07/12/2015 3:40 PM CDT [facility] Urine 07/12/2015 3:52 PM CDT 07/12/2015 3:40 PM CDT Dena Al MD POINT OF CARE TESTIN G [facility] CLIA # [id number] [address] [place] [id number] documented in this encounter Visit Diagnoses Diagnosis Dysuria- Primary Frequency of urination Urinary frequency Urinary tract infection without hematuria, site unspecified documented in this encounter Care Teams Fashion Styling Intern Relationship Specialty Start Date End Date Annalisa Christopher MD [address] [place] [address] PCP - General 07/07/08 documented as of this encounter
--- OUTSIDE RECORDS SUMMARY | 2024-10-06 18:14 | XMS_ITS | Encounter Summary ---
Author Organization [facility] Address [address] [place] [address] Care Team Providers Care Retail Account Specialist Name Role Phone Annalisa Christopher MD Primary Care Provider [phone] Reason for Visit * Reason Comments Cough Cough Pineda Cuadra RN 07/28/16 0948 * Auth/Cert Specialty Diagnoses / Procedures Referred By Contaviva t Referred To Contact Urgent Care Diagnoses COUGH,HEADACHE,EAR PRESSURE [facility] [address] [address] Referral ID Status Reason Start Date Expiration Date Visits Re quested Visits Authorized [id number] 1 1 Encounter Details Date Type Department Care Team (Late st Contact Info) Description 07/28/2016 9:20 AM CDT Office Visit [address] [address] Celeste Sidhu MD [address] [place] [place] [address] Acute recurrent maxillary sinusitis (Primary Dx) Social History Tobacco [...] Sign Reading Time Taken Comments Blood Pressure 108/79 07/28/2016 9:48 AM CDT Pulse 87 07/28/2016 9:48 AM CDT Temperature 36.8 ??C (98.2 ??F) 07/28/2016 9:48 AM CD T Respiratory Rate 16 07/28/2016 9:48 AM CDT Oxygen Saturation 97% 07/28/2016 9:48 AM CDT Inhaled Oxygen Concentration - - Weight 79.4 kg (175 lb) 07/28/2016 9:48 AM CDT Height 170.2 cm (5' 7 ) 07/28/2016 9:48 AM CDT Body Mass Index 27.41 07/28/2016 9:48 AM CDT documented in this encounter Progress Notes * Celeste Sidhu MD - 07/28/2016 10:21 AM CDT Subjective: CC: Sinus and chest congestion, cough Fabiana Pryor is a 41 y.o. female who presents with c/o's Sinusitis. Symptoms include left ear pressure/pain, facial pain, post nasal drip, productive cough with yellow or green colored sputum and sore throat with no fever, chills, or night sweats. Onset of symptoms was 1 week ago, gradually worsening since that time. She is drinking plenty of fluids.. Past history is significant for pneumonia, previous hospitalization and bronchitis. Patient is a former smoker, quit 13 years ago. She has not had recent close exposure to someone with proven streptococcal pharyngitis. Was treated with Amoxil 3 weeks ago, got better but symptoms returned in the last week. Sinus pressure is worse on the left. Past Medical History Diagnosis Date ??? Temporomandibular joint disorders, unspecified occasional jaw pain/ rare popping ??? Family history of allergic disorder succinylcholine ??? Asthma ??? Allergic rhinitis 08/05/2013 ??? Extrinsic asthma, unspecified 12/27/2007 ??? Migraine 10/07/2010 ??? PTSD (post-traumatic stress disorder) Hx of stillbirth at age 25, patient has 2 living children 7 pregnancies Family History Problem Relation Age of Onset ??? Hypertension Father ??? Heart Disease Father [place] 60's ??? Stroke Father ??? Diabetes Mother ??? Heart Disease Mother ??? Other Brother Crohn's ??? Breast Cancer Neg Hx ??? Ovarian Cancer Neg Hx ??? Colon Cancer Neg Hx ??? Healthy Daughter Current Outpatient Prescriptions Medication Sig Dispense Refill ??? escitalopram oxalate (LEXAPRO) 10 mg tablet Take 1 Tablet (10 mg) by mouth daily. 30 Tablet 11 ??? CETIRIZINE HCL (ZYRTEC ORAL) Take by mouth. ??? fluticasone (FLONASE) 50 mcg/spray [place], Suspension SPRAY TWICE IN EACH NOSTRIL EVERY DAY. 16 Gram 1 ??? Levonorgestrel (MIRENA) 20 mcg/24 hr Intrauterine IUD by Intrauterine route. ??? diazePAM (VALIUM) 5 mg tablet Take 1 Tablet (5 mg) by mouth 1 time daily as needed for Anxiety.20 Tablet 0 ??? albuterol sulfate 90 mcg inhaler Take 2 Puffs by inhalation every 6 hours as needed for Shortness of Breath. 6.7 Gram 1 No current facility-administered medications for this visit. Allergies Allergen Reactions ??? Sulfa (Sulfonamide Antibiotics) Hives Social History Social History ??? Marital Status: Spouse Name: N/A ??? Number of Children: N/A ??? Years of Education: N/A Occupational History ??? Social History Main Topics ??? Smoking status: Former Smoker Quit date: 07/09/2010 ??? Smokeless tobacco: Never Used ??? Alcohol Use: No ??? Drug Use: No ??? Sexual Activity: Partners: Male Comment: LMP 06/05/10 Other Topics Concern ??? Not on file Social History Narrative Review of Systems Review of Systems Constitutional: Negative for fever, chills, malaise/fatigue and diaphoresis. HENT: Positive for congestion, ear pain and sore throat. Negative for ear discharge and nosebleeds. Respiratory: Positive for cough and sputum production. Negative for hemoptysis, shortness of breath, wheezing and stridor. Gastrointestinal: Negative for nausea, vomiting and diarrhea. Musculoskeletal: Negative for myalgias, back pain, joint pain and neck pain. Skin: Negative for rash. Neurological: Negative for dizziness, weakness and headaches. Objective: BP 108/79 mmHg Pulse 87 Temp(Src) 98.2 ??F (36.8 ??C) (Oral) Resp 16 Ht 5' 7 (1.702 m) Wt 79.379 kg (175 lb) BMI 27.40 kg/m2 SpO2 97% General: alert, in no distress, cooperative Head: maxillary sinus tenderness bilateral Eyes: conjunctivae/corneas clear. PERRL, EOM's intact. Ears: normal TM's and external ear canals AU Sinus tender: moderate, left greater than right maxillary sinus Mouth: Lips, mucosa (moist), and tongue normal. Teeth and gums normal and normal findings: soft palate, uvula, and tonsils normal and oropharynx pink & moist without lesions or evidence of thrush Neck: supple, symmetrical, trachea midline and no adenopathy. Lungs: clear to auscultation bilaterally, normal respiratory effort Heart RRR no MGR Assessment: ASSESSMENT: Encounter Diagnosis Name Primary? Acute recurrent maxillary sinusitis Yes PLAN: Orders Placed This Encounter ??? amoxicillin-clavulanate (AUGMENTIN) 875-125 mg tablet ??? promethazine-codeine (PHENERGAN WITH CODEINE) 6.25-10 mg/5 mL solution Continue supportive care. * Padma Cuadra RN - 07/28/2016 9:49 AM CDT Patient complains of cough, congestion, chest pain, ear and jaw pain for four weeks. Treated with antibiotics and sx improved but now have returned Patient awake and alert. Respiration are unlabored. No acute distress noted. Moving all extremities. Pain on a 1-10 scale. Pt here with family documented in this encounter Miscellaneous Notes * Patient Instructions - Celeste Sidhu MD - 07/28/2016 10:57 AM CDT Images from the original note were not included. J-Kan. Sinusitis: Care Instructions Your Care Instructions Sinusitis is an infection of the lining of the sinus cavities in your head. Sinusitis often followsa cold. It causes pain and pressure in your head and face. In most cases, sinusitis gets better on its own in 1 to 2 weeks. But some mild symptoms may last for several weeks. Sometimes antibiotics are needed. Follow-up care is a billings part of your treatment and safety. Be sure to make and go to all appointments, and call your doctor if you are having problems. It's also a good idea to know your test resultsand keep a list of the medicines you take. How can you care for yourself at home? ?? Take an woip-vey-xmxxsdf pain medicine, such as acetaminophen (Tylenol), ibuprofen (Advil, Motrin), or naproxen (Aleve). Read and follow all instructions on the label. ?? If the doctor prescribed antibiotics, take them as directed. Do not stop taking them just because you feel better. You need to take the full course of antibiotics. ?? Be careful when taking xlne-gur-kinfkuv cold or flu medicines and Tylenol at the same time. Manyof these medicines have acetaminophen, which is Tylenol. Read the labels to make sure that you are not taking more than the recommended dose. Too much acetaminophen (Tylenol) can be harmful. ?? Breathe warm, moist air from a steamy shower, a hot bath, or a sink filled with hot water. Avoidcold, dry air. Using a humidifier in your home may help. Follow the directions for cleaning the machine. ?? Use saline (saltwater) nasal washes to help keep your nasal passages open and wash out mucus andbacteria. You can buy saline nose drops at a grocery store or drugstore. Or you can make your own at home by adding 1 teaspoon of salt and 1 teaspoon of baking soda to 2 cups of distilled water. If you make your own, fill a bulb syringe with the solution, insert the tip into your nostril, and squeeze gently. Blow your nose. ?? Put a hot, wet towel or a warm gel pack on your face 3 or 4 times a day for 5 to 10 minutes eachtime. ?? Try a decongestant nasal spray like oxymetazoline (Afrin). Do not use it for more than 3 days td row. Using it for more than 3 days can make your congestion worse. When should you call for help? Call your doctor now or seek immediate medical care if: ?? You have new or worse swelling or redness in your face or around your eyes. ?? You have a new or higher fever. Watch closely for changes in your health, and be sure to contact your doctor if: ?? You have new or worse facial pain. ?? The mucus from your nose becomes thicker (like pus) or has new blood in it. ?? You are not getting better as expected. Where can you learn more? Go to https://www.VULCUN.net/patientEd. Enter I933 in the search box to learn more about Sinusitis: Care Instructions. Current as of: August 14, 2015 Content Version: 11.0 ?? [id number] [employer]. Care instructions adapted under license by your healthcare professional. If you have questions about a medical condition or this instruction, always ask your healthcare professional. These instructions may not represent the values of this healthcare organization. [employer] disclaims any warranty or liability for your use of this information. documented in this encounter Plan of Treatment Upcoming Encounters Date Type Department Care Team (Late st Contact Info) Description 04/25/2025 8:20 AM CDT Office Visit [facility] Primary [facility] - [facility] [address] [facility] [address] [place] [address] Annalisa Christopher MD [address] [place] [address] [place] [address] documented as of this encounter Visit Diagnoses Diagnosis Acute recurrent maxillary sinusitis- Primary Acute maxillary sinusitis documented in this encounter Additional Health Concerns Assessment Noted Time PHQ-9 Depression Total Score: 1 06/06/20 16 9:00 AM CDT documented as of this encounter Care Teams Retail Account Specialist Relationship Specialty Start Date End Date Annalisa Christopher MD [address] [facility] [address] [place] [address] PCP - General 07/07/08 documented as of this encounter
--- OUTSIDE RECORDS SUMMARY | 2024-10-06 18:14 | XMS_ITS | Encounter Summary ---
Author Organization [facility] Address [address] [place] [address] Care Team Providers Care Corporate Relations Director Name Role Phone Annalisa Christopher MD Primary Care Provider [phone] Reason for Visit * Reason Onset Date Comments Erroneous encounter-disregard 03/10/2015 Encounter Details Date Type Department Care Team (Late Contact Info) Description 03/10/[address] [facility] Primary Care - [address] [place] [address] Annalisa Christopher MD [address] [place] [address] [place] [address] Erroneous encounter-disregard Social History Tobacco Use Types Packs/Day Years [...] encounter Miscellaneous Notes * Telephone Encounter - Nakia Hassan - 03/10/2015 11:04 AM CDT A user error has taken place: encounter opened in error, closed for administrative reasons dl . documented in this encounter Plan of Treatment Upcoming Encounters Date Type Department Care Team (Late Contact Info) Description 04/25/2025 8:20 AM CDT Office Visit [facility] Primary Care - [facility] [address] [place] [address] Annalisa Christopher MD [address] [place] [address] documented as of this encounter Visit Diagnoses Not on filedocumented in this encounter Care Teams Corporate Relations Director Relationship Specialty Start Date End Date Annalisa Christopher MD [address] [place] [address] PCP - General 07/07/08 documented as of this encounter
--- OUTSIDE RECORDS SUMMARY | 2024-10-06 18:14 | XMS_ITS | Encounter Summary ---
Author Organization [facility] Address [address] [place] [address] Care Team Providers Care Professional Fee Coder Name Role Phone Annalisa Christopher MD Primary Care Provider [phone] Reason for Visit * Reason Onset Date Comments Urinary Frequency 03/10/2015 Encounter Details Date Type Department Care Team (Late st Contact Info) Description 03/10/2015 Telephone [facility] Primary Care - [address] [place] [address] Annalisa Christopher MD [address] [place] [address] [address] [place] [address] Urinary Frequency Social History Tobacco Use Types Packs/Day Years [...] * Telephone Encounter - Emely Cuadra - 03/10/2015 9:59 AM CDT Spoke to pt and put on ma schedule * Telephone Encounter - Mery Villanueva APRN-BC - 03/10/2015 9:57 AM CDT Recommend urine culture, ordered Leave urine specimen here * Telephone Encounter - Emely Cuadra - 03/10/2015 9:52 AM CDT Read [facility] message for lab results to pt Pt is having lower rt flank pain, frequent and cloudy urine Asking for rx? Repeat u/a? documented in this encounter Plan of Treatment Upcoming Encounters Date Type Department Care Team (Late st Contact Info) Description 04/25/2025 8:20 AM CDT Office Visit [facility] Primary Care - [facility] [address] [facility] [address] [place] [address] Annalisa Christopher MD [address] [facility] [address] [place] [address] documented as of this encounter Visit Diagnoses Diagnosis Urinary frequency- Primary Cloudy urine Other nonspecific finding on examination of urine documented in this encounter Care Teams Professional Fee Coder Relationship Specialty Start Date End Date Annalisa Christopher MD [address] [facility] [address] [place] [address] PCP - General 07/07/08 documented as of this encounter
--- OUTSIDE RECORDS SUMMARY | 2024-10-06 18:14 | XMS_ITS | Encounter Summary ---
Author Organization [facility] Address [address] [place] [address] Care Team Providers Care Hand Stone Polisher Name Role Phone Annalisa Christopher MD Primary Care Provider [phone] Reason for Visit * Reason Comments Cough cough and chest roseline estion, treated for sinus infection 2 weeks ago without improvement 05/01/15 1055 claritza * Auth/Cert - Closed Specialty Diagnoses / Procedures Referred By Contac t Referred To Contact Urgent Care Diagnoses upper repiratory/sinus [facility] [address] [address] Referral ID Status Reason Start Date Expiration Date Visits Re quested Visits Authorized [id number] Closed 1 1 Encounter Details Date Type Department Care Team (Late st Contact Info) Description 05/01/2015 10:45 AM CDT Office Visit [facility] Urgent [address] [address] Emeterio Andrews DO NO ADDRESS ON FILE Cough (Primary Dx); Sore throat; Ear pain, right Social History Tobacco Use Types Packs/Day Years [...] Sign Reading Time Taken Comments Blood Pressure 108/73 05/01/2015 10:56 AM CDT Pulse 74 05/01/2015 10:56 AM CDT Temperature 36.9 ??C (98.4 ??F) 05/01/2015 10:56 AM C DT Respiratory Rate 16 05/01/2015 10:56 AM CDT Oxygen Saturation 98% 05/01/2015 10:56 AM CDT Inhaled Oxygen Concentration - - Weight 78.9 kg (174 lb) 05/01/2015 10:56 AM CDT Height 170.2 cm (5' 7 ) 05/01/2015 10:56 AM CDT Body Mass Index 27.25 05/01/2015 10:56 AM CDT documented in this encounter Progress Notes * Emeterio Andrews, DO - 05/01/2015 11:06 AM CDT HISTORY OF PRESENT ILLNESS Fabiana Pryor, a 39 y.o. female. Subjective HPI Comments: CC: Chest congestion, nasal congestion. Progressive nasal congestion, dry cough becoming more productive over the past 3 weeks. Pain and hearing changed noted in the right ear. Tried a Z-elizabeth, zyrtec, ibuprofen, flonase, and symptoms have persisted. Associated headaches. No nasal drainage. Intermittent yellow productive sputum. Last time she was ill like this over 2 years ago. History of asthma, has not use albuterol in over a year. Cough Associated symptoms include wheezing. Pertinent negatives include no chest pain, chills, eye redness, fever, headaches, myalgias, rash, sore throat or shortness of breath. Patient Active Problem List Diagnosis Date Noted ??? Malaise and fatigue 10/08/2013 ??? Allergic rhinitis 08/05/2013 Current Outpatient Prescriptions on File Prior to Visit Medication Sig Dispense Refill ??? fluticasone (FLONASE) 50 mcg/spray [place], Suspension SPRAY TWICE IN EACH NOSTRIL EVERY [...] CURETTAGE SUCTION performed by DOUGLAS JEFFREY at [facility] OR [facility] ??? Pr delivery only 2003 ??? Pr delivery only 08/31/2011 SECTION performed by Douglas Jeffrey MD at [facility] L&D Family History Problem Relation Age of Onset ??? Hypertension Father ??? Heart Disease Father HI 60's ??? Stroke Father ??? Diabetes Mother ??? Heart Disease Mother ??? Other Brother Crohn's ??? Breast Cancer Neg Hx ??? Ovarian Cancer Neg Hx ??? Colon Cancer Neg Hx ??? Healthy Daughter REVIEW OF SYSTEMS Review of Systems Constitutional: Negative for fever, chills and appetite change. HENT: Negative for congestion, facial swelling, hearing loss and sore throat. Eyes: Negative for pain and redness. Respiratory: Positive for cough and wheezing. Negative for chest tightness and shortness of breath. Cardiovascular: Negative for chest pain. Gastrointestinal: Negative for nausea, vomiting, abdominal pain and abdominal distention. Genitourinary: Negative for dysuria and hematuria. Musculoskeletal: Negative for myalgias, arthralgias and neck pain. Skin: Negative for rash. Neurological: Negative for dizziness, light-headedness and headaches. Objective PHYSICAL EXAM BP 108/73 mmHg Pulse 74 Temp(Src) 98.4 ??F (36.9 ??C) (Oral) Resp 16 Ht 5' 7 (1.702 m) Wt 174 lb (78.926 kg) BMI 27.25 kg/m2 SpO2 98% Physical Exam Constitutional: She is oriented to person, place, and time. She appears well- developed. No distress. HENT: Head: Normocephalic. Right TM; clear air/fluid level, mild bulging. Left TM; non-bulging, sanchez. Nares, red, swollen Throat, pink, +cobblestoning. Neck non-tender Sinus, + frontal sinus pain. Eyes: Conjunctivae are normal. Pupils are equal, round, and reactive to light. Neck: Normal range of motion. Neck supple. Cardiovascular: Normal rate and regular rhythm. No murmur heard. Pulmonary/Chest: Effort normal. No respiratory distress. She has no wheezes. Musculoskeletal: Normal range of motion. She exhibits no edema. Lymphadenopathy: She has no cervical adenopathy. Neurological: She is alert and oriented to person, place, and time. Skin: Skin is warm. No rash noted. She is not diaphoretic. Assessment ASSESSMENT and PLAN: ICD-9-CM ICD-10-CM 1. Cough 786.2 R05 albuterol sulfate 90 mcg inhaler 2. Sore throat 462 J02.9 3. Ear pain, right 388.70 H92.01 amoxicillin (AMOXIL) 875 mg tablet - Persistent cough, intermittently productive, with right ear pain and mild hearing changes; cover with amoxicillin, and PRN albuterol. Recommend OTC cough/cold/congestion medication. Further instructions per AVS. Return to UC or PCP for worsening symptoms. Emeterio Andrews DO, 05/01/2015 11:21 AM * Nathalia Wallace RN - 05/01/2015 10:58 AM CDT Pt ambulated into room without difficulty c/o cough and chest congestion. Pt states she was treatedfor a sinus infection 2 weeks ago with Zithromax but when she completed, there was very little improvement. Pt states she continues to have nasal congestion and a headache but symptoms are more in chest. Reports cough as mostly nonproductive. Denies fevers. Daughter has been sick with viral pneumonia recently. Pt awake and alert. Speaks with ease, no acute distress. documented in this encounter Miscellaneous Notes * Patient Instructions - Emeterio Andrews DO - 05/01/2015 11:17 AM CDT Cough: After Your Visit Your Care Instructions A cough is your body's response to something that bothers your throat or airways. Many things can cause a cough. You might cough because of a cold or the flu, bronchitis, or asthma. Smoking, postnasal drip, allergies, and stomach acid that backs up into your throat also can cause coughs. A cough is a symptom, not a disease. Most coughs stop when the cause, such as a cold, goes away. You can take a few steps at home to cough less and feel better. Follow-up care is a billings part of your treatment and safety. Be sure to make and go to all appointments, and call your doctor if you are having problems. It's also a good idea to know your test resultsand keep a list of the medicines you take. How can you care for yourself at home? ?? Drink lots of water and other fluids. This helps thin the mucus and soothes a dry or sore throat. Honey or lemon juice in hot water or tea may ease a dry cough. ?? Take cough medicine as directed by your doctor. ?? Prop up your head on pillows to help you breathe and ease a dry cough. ?? Try cough drops to soothe a dry or sore throat. Cough drops don't stop a cough. Medicine-flavored cough drops are no better than candy-flavored drops or hard candy. ?? Do not smoke. Avoid secondhand smoke. If you need help quitting, talk to your doctor about stop-smoking programs and medicines. These can increase your chances of quitting for good. When should you call for help? Call 911 anytime you think you may need emergency care. For example, call if: ?? You have severe trouble breathing. Call your doctor now or seek immediate medical care if: ?? You cough up blood. ?? You have new or worse trouble breathing. ?? You have a new or higher fever. ?? You have a new rash. Watch closely for changes in your health, and be sure to contact your doctor if: ?? You cough more deeply or more often, especially if you notice more mucus or a change in the color of your mucus. ?? You have new symptoms, such as a sore throat, an earache, or sinus pain. ?? You do not get better as expected. documented in this encounter Plan of Treatment Upcoming Encounters Date Type Department Care Team (Late st Contact Info) Description 04/25/2025 8:20 AM CDT Office Visit [facility] Primary Care - [facility] [address] [facility] [address] [place] [address] Annalisa Christopher MD [address] [facility] [address] [place] [address] documented as of this encounter Visit Diagnoses Diagnosis Cough- Primary Sore throat Acute pharyngitis Ear pain, right documented in this encounter Care Teams Hand Stone Polisher Relationship Specialty Start Date End Date Annalisa Christopher MD [address] [facility] [address] [place] [address] PCP - General 07/07/08 documented as of this encounter
--- OUTSIDE RECORDS SUMMARY | 2024-10-06 18:14 | XMS_ITS | Encounter Summary ---
Author Organization [facility] Address [address] [place] [address] Care Team Providers Care Client Services Assistant Name Role Phone Annalisa Christopher MD Primary Care Provider [phone] Reason for Visit * Reason Comments Medication Refill Encounter Details Date Type Department Care Team (Late st Contact Info) Description 05/24/[address] [place] [address] Annalisa Christopher MD [address] [place] [address] [address] [place] [address] Social History Tobacco Use Types [...] 04/25/2025 8:20 AM CDT Office Visit [facility] [address] [place] [address] [address] [place] [address] Annalisa Christopher MD [address] [place] [address] [address] [place] [address] documented as of this encounter Visit Diagnoses Not on filedocumented in this encounter Additional Health Concerns Assessment Noted Time PHQ-9 Depression Total Score: 1 06/06/20 16 9:00 AM CDT documented as of this encounter Care Teams Client Services Assistant Relationship Specialty Start Date End Date Annalisa Christopher MD [address] [place] [address] PCP - General 07/07/08 documented as of this encounter
--- OUTSIDE RECORDS SUMMARY | 2024-10-06 18:14 | XMS_ITS | Encounter Summary ---
Author Organization [facility] Address [address] [place] [address] Care Team Providers Care Elevator Mechanic Apprentice Name Role Phone Annalisa Christopher MD Primary Care Provider [phone] Reason for Visit * Reason Onset Date Comments Sinus Infection 12/08/2015 Encounter Details Date Type Department Care Team (Late st Contact Info) Description 12/08/2015 Telephone [facility] Primary Care - [address] [place] [address] Annalisa Christopher MD [address] [place] [address] [address] [place] [address] Sinus Infection Social History Tobacco [...] * Telephone Encounter - Tiana Brothers - 12/08/2015 4:47 PM CDT Spoke with pt * Telephone Encounter - Annalisa Christopher MD - 12/08/2015 4:43 PM CDT Amox sent * Telephone Encounter - Sanjana Tompkins - 12/08/2015 4:34 PM CDT Anything to replace z-elizabeth? * Telephone Encounter - Annalisa Christopher MD - 12/08/2015 4:30 PM CDT Please call in my Rx cheratussin * Telephone Encounter - Tiana Brothers - 12/08/2015 2:21 PM CDT Insurance will not cover another z pac,asking for something different * Telephone Encounter - Sanjana Tompkins - 12/08/2015 2:03 PM CDT Pt asking for cheratussin if possible State otc delsym is not helping. Please advise. * Telephone Encounter - Annalisa Christopher MD - 12/08/2015 1:51 PM CDT Z-elizabeth sent * Telephone Encounter - Kathleen Harmon - 12/08/2015 8:34 AM CDT Coughing up green phelgm Sinus drainage Congestion Ear discomfort Pressure around eyes No fever S/t Sx x few wks, passing around between fam Asking for abx and cheratussin documented in this encounter Plan of Treatment Upcoming Encounters Date Type Department Care Team (Late st Contact Info) Description 04/25/2025 8:20 AM CDT Office Visit [facility] Primary Care - [address] [place] [address] Annalisa Christopher MD [address] [place] [address] documented as of this encounter Visit Diagnoses Not on filedocumented in this encounter Care Teams Elevator Mechanic Apprentice Relationship Specialty Start Date End Date Annalisa Christopher MD [address] [place] [address] PCP - General 07/07/08 documented as of this encounter
--- OUTSIDE RECORDS SUMMARY | 2024-10-06 18:14 | XMS_ITS | Encounter Summary ---
Author Organization [facility] Address [address] [place] [address] Care Team Providers Care Straw Hat Brim Cutter Operator Name Role Phone Annalisa Christopher MD Primary Care Provider [phone] Reason for Visit * Reason Onset Date Comments Upper Respiratory Symptoms 07/05/2016 Encounter Details Date Type Department Care Team (Late st Contact Info) Description 07/05/2016 Telephone [facility] Primary Care - [address] [place] [address] Annalisa Christopher MD [address] [place] [address] [address] [place] [address] Upper Respiratory Symptoms Social History [...] * Telephone Encounter - Kathleen Harmon - 07/05/2016 3:58 PM CDT lmor for pt * Telephone Encounter - Annalisa Christopher MD - 07/05/2016 3:58 PM CDT Amox sent * Telephone Encounter - Emely Cuadra - 07/05/2016 8:43 AM CDT Pressure around eye, green/yellow mucous, drainage, cough from drainage, no fever Headache, ear pressure, throat is scratchy x last week Taking advil sinus/cold Asking for rx GRIFFIN 06/06/16 mk documented in this encounter Plan of Treatment Upcoming Encounters Date Type Department Care Team (Late st Contact Info) Description 04/25/2025 8:20 AM CDT Office Visit [facility] Primary Care - [facility] [address] [facility] [address] [place] [address] Annalisa Christopher MD [address] [facility] [address] [place] [address] documented as of this encounter Visit Diagnoses Not on filedocumented in this encounter Additional Health Concerns Assessment Noted Time PHQ-9 Depression Total Score: 1 06/06/20 16 9:00 AM CDT documented as of this encounter Care Teams Straw Hat Brim Cutter Operator Relationship Specialty Start Date End Date Annalisa Christopher MD [address] [facility] [address] [place] [address] PCP - General 07/07/08 documented as of this encounter
--- OUTSIDE RECORDS SUMMARY | 2024-10-06 18:14 | XMS_ITS | Encounter Summary ---
Author Organization [facility] Address [address] [place] [address] Care Team Providers Care Face And Fill Packer Name Role Phone Annalisa Christopher MD Primary Care Provider [phone] Reason for Visit * Reason Onset Date Comments Upper Respiratory Symptoms 05/05/2015 Encounter Details Date Type Department Care Team (Late st Contact Info) Description 05/05/2015 Telephone [facility] Primary Care - [address] [place] [address] Annalisa Christopher MD [address] [place] [address] [address] [place] [address] Upper Respiratory Symptoms Social History [...] * Telephone Encounter - Emely Cuadra - 05/05/2015 10:42 AM CDT Spoke to pt lmor at pharm. * Telephone Encounter - Tiana Brothers - 05/05/2015 9:07 AM CDT Dry cough,no wheezing, tightness in these, went to urgent care on Monday, using albuterol and amoxicillin, no relief, wanting rx for cough documented in this encounter Plan of Treatment Upcoming Encounters Date Type Department Care Team (Late st Contact Info) Description 04/25/2025 8:20 AM CDT Office Visit [facility] Primary Care - [facility] [address] [facility] [address] [place] [address] Annalisa Christopher MD [address] [facility] [address] [place] [address] documented as of this encounter Visit Diagnoses Not on filedocumented in this encounter Care Teams Face And Fill Packer Relationship Specialty Start Date End Date Annalisa Christopher MD [address] [facility] [address] [place] [address] PCP - General 07/07/08 documented as of this encounter
--- OUTSIDE RECORDS SUMMARY | 2024-10-06 18:14 | XMS_ITS | Encounter Summary ---
Author Organization [facility] Address [address] [place] [address] Care Team Providers Care Masticator Name Role Phone Annalisa Christopher MD Primary Care Provider [phone] Reason for Visit * Reason Onset Date Comments Sinus Infection 04/21/2015 Encounter Details Date Type Department Care Team (Late st Contact Info) Description 04/21/2015 Telephone [facility] Primary Care - [address] [place] [address] Annalisa Christopher MD [address] [place] [address] [address] [place] [address] Sinus Infection Social History Tobacco [...] * Telephone Encounter - Sanjana Tompkins - 04/21/2015 3:26 PM CDT Called pt script sent to pharmacy BY [facility]. * Telephone Encounter - Annalisa Christopher MD - 04/21/2015 3:11 PM CDT Z-elizabeth sent * Telephone Encounter - Kathleen Harmon - 04/21/2015 8:47 AM CDT Headache Yellow sinus drainage Sinus pressure No ear pain Dry cough Some drainage down throat Taking otc aleve cold and sinus, not helping, sx seem to be getting worse Sx x 2wks Asking for rx? documented in this encounter Plan of Treatment Upcoming Encounters Date Type Department Care Team (Late st Contact Info) Description 04/25/2025 8:20 AM CDT Office Visit [facility] Primary [facility] - [facility] [address] [facility] [address] [place] [address] Annalisa Christopher MD [address] [facility] [address] [place] [address] documented as of this encounter Visit Diagnoses Not on filedocumented in this encounter Care Teams Masticator Relationship Specialty Start Date End Date Annalisa Christopher MD [address] [facility] [address] [place] [address] PCP - General 07/07/08 documented as of this encounter
--- OUTSIDE RECORDS SUMMARY | 2024-10-06 18:14 | XMS_ITS | Encounter Summary ---
Author Organization [facility] Address [address] [place] [address] Care Team Providers Care Coil Machine Supervisor Name Role Phone Annalisa Christopher MD Primary Care Provider [phone] Reason for Referral * Outpatient Services (Routine) - Closed Specialty Diagnoses / Procedures Referred By Contac t Referred To Contact CT Scan Diagnoses Allergic rhinitis due to pollen, unspecified rhinitis seasonality Sinus pain Bilateral acute serous otitis media, recurrence not specified Procedures CT SINUS FACIAL BONES WO CONTRAST Mery Villanueva APRN-BC [address] [place] [address] Referral ID Status Reason Start Date Expiration Date V isits Requested Visits Authorized [id number] Closed [facility] CTS 01/16/2017 03/02/2017 1 1 Reason for Visit * Reason Comments Wheezing Sore Throat Encounter Details Date Type Department Care Team (Late st Contact Info) Description 01/13/2017 9:20 AM CDT Office Visit [facility] Primary Care - [address] [place] [address] Mery Villanueva APRN-BC [address] [place] [address] Allergic rhinitis due to pollen, unspecified rhinitis seasonality (Primary Dx); Sinus pain; Bilateral acute serous otitis media, recurrence not specified Social History Tobacco Use Types Packs/Day Years [...] Sign Reading Time Taken Comments Blood Pressure 112/84 01/13/2017 9:24 AM CDT Pulse - - Temperature 36.4 ??C (97.6 ??F) 01/13/2017 9:24 AM CD T Respiratory Rate - - Oxygen Saturation - - Inhaled Oxygen Concentration - - Weight 90.7 kg (200 lb) 01/13/2017 9:24 AM CDT Height 170.2 cm (5' 7 ) 01/13/2017 9:24 AM CDT Body Mass Index 31.32 01/13/2017 9:24 AM CDT documented in this encounter Progress Notes * Mery Villanueva APRN- - 01/13/2017 9:41 AM CDT Mery Villanueva APRN, [facility] [place] [address] SUBJECTIVE: Chief Complaint Patient presents with ??? Wheezing ??? Sore Throat Fabiana Gomes a 41 y.o. female who presents for the above. She reports pressure and pain to left ear and left sinus area. She reports sore throat. She notes wheezing and cough. She states this has been ongoing with sinus issues for about 9 months. She is wondering what else could be donel. She has completed antibiotics in past. She uses flonase. She denies fevers, night sweats, sob, wheeze. Current medical problems: Patient Active Problem List [...] updates as needed inthe record today. OBJECTIVE: BP 112/84 Temp 97.6 ??F (36.4 ??C) Ht 5' 7 (1.702 m) Wt 90.7 kg (200 lb) BMI 31.32 kg/m2 General appearance: alert, well appearing, no apparent distress, Mental Status: alert and oriented. HEENT: normal throat and nodes. Bilateral TMs bulging with fluid accumulation Sinus tender to palpation lft Chest: clear to auscultation, no wheezes, rales or rhonchi, symmetric air entry, no respiratory distress. Heart: normal rate, regular rhythm ASSESSMENT and PLAN: ICD-10-CM ICD-9-CM 1. Allergic rhinitis due to pollen, unspecified rhinitis seasonality: Ongoing sinus pain an dpressure Sinus CT scan pred and doxy Stop flonase and trial dymista J30.1 477.0 2. Sinus pain J34.89 478.19 3. Bilateral acute serous otitis media, recurrence not specified H65.03 381.01 Orders: Orders Placed This Encounter ??? CT SINUS FACIAL BONES WO CONTRAST ??? doxycycline hyclate (VIBRAMYCIN) 100 mg capsule ??? predniSONE (DELTASONE) 20 mg tablet ??? azelastine-fluticasone (DYMISTA) 137-50 mcg/spray [place], Non-Aerosol Plan to follow up in Routine prn Patient was instructed to call the office or return sooner for any problems. The patient verbalizes understanding of plan of care and all questions were answered. documented in this encounter Plan of Treatment Upcoming Encounters Date Type Department Care Team (Late st Contact Info) Description 04/25/2025 8:20 AM CDT Office Visit [facility] [address] [facility] [address] [place] [address] Annalisa Christopher MD [address] [facility] [address] [place] [address] documented as of this encounter Results * CT SINUS FACIAL BONES WO CONTRAST (01/20/2017 2:00 PM CDT) Anatomical Region Laterality Modality Head Computed Tomogra phy 01/20/2017 2:04 PM CDT Impressions 01/20/2017 4:07 PM CDT IMPRESSION: Unremarkable sinus CT DICTATION LOCATION: Location [address] [place] [address] Narrative 01/20/2017 4:[address] SINUS [...] IMPRESSION: Unremarkable sinus CT DICTATION LOCATION: Location [address] [place] [address] Mery Jyoti Kay PILOT INSTRUCTOR-BC CT ORDERABLES documented in this encounter Visit Diagnoses Diagnosis Allergic rhinitis due to pollen, unspecified rhinitis seasonality- Primary Sinus pain Other diseases of nasal cavity and sinuses Bilateral acute serous otitis media, recurrence not specified Allergic rhinitis due to pollen, unspecified rhinitis seasonality Sinus pain Other diseases of nasal cavity and sinuses Bilateral acute serous otitis media, recurrence not specified documented in this encounter Additional Health Concerns Assessment Noted Time PHQ-9 Depression Total Score: 1 06/06/20 16 9:00 AM CDT documented as of this encounter Care Teams Coil Machine Supervisor Relationship Specialty Start Date End Date Annalisa Christopher MD [address] [place] [address] PCP - General 07/07/08 documented as of this encounter
--- OUTSIDE RECORDS SUMMARY | 2024-10-06 18:15 | XMS_ITS | Encounter Summary ---
Author Organization [facility] Address [address] [place] [address] Care Team Providers Care Olericulture Teacher Name Role Phone Annalisa Christopher MD Primary Care Provider [phone] Reason for Visit * Reason Onset Date Comments Yeast Infection 02/17/2011 Encounter Details Date Type Department Care Team (Late st Contact Info) Description 02/17/2011 Telephone [facility] PURCHASING ASSISTANT - [address] [address] Douglas Patricio MD [address] [place] [address] [place] [address] Yeast Infection Social History Tobacco Use Types Packs/Day Years Used Date Smoking Tobacco: Former Cigarettes Q uit: 07/09/2010 Smokeless Tobacco: Never Alcohol Use Standard Drinks/Week Comments Yes 0 (1 standard drink = 0.6 oz pur e alcohol) Comments Yes Sex and Gender Information Value Date Recorded Sex Assigned at Not on file Gender Identity Not on file Sexual Orientation Not on file documented as of this encounter Miscellaneous Notes * Telephone Encounter - Emely Adams - 02/17/2011 3:22 PM CDT Pt states she is 9 weeks and used a Diflucan last week for dx yeast infection and doesn't think it went completely away. Terazol 3 suppository to pharmacy. Allergic to Sulfa AB documented in this encounter Plan of Treatment Upcoming Encounters Date Type Department Care Team (Late st Contact Info) Description 04/25/2025 8:20 AM CDT Office Visit [facility] Care [facility] [address] [facility] [address] [place] [address] Annalisa Christopher MD [address] [facility] [address] [place] [address] documented as of this encounter Visit Diagnoses Not on filedocumented in this encounter Care Teams Olericulture Teacher Relationship Specialty Start Date End Date Annalisa Christopher MD [address] [facility] [address] [place] [address] PCP - General 07/07/08 documented as of this encounter
--- OUTSIDE RECORDS SUMMARY | 2024-10-06 18:15 | XMS_ITS | Encounter Summary ---
Author Organization [facility] Address [address] [place] [address] Care Team Providers Care Epic Radiant Analyst Name Role Phone Annalisa Christopher MD Primary Care Provider [phone] Reason for Visit * Reason Comments Upper Respiratory Symptoms presents with c/o nasal congestion and cough x5 days. Jennifer BruzaitisRN 10/05/14 @ 0939. * Auth/Cert - Closed Specialty Diagnoses / Procedures Referred By Contac t Referred To Contact Urgent Care Diagnoses [facility] [address] [address] Referral ID Status Reason Start Date Expiration Date Visits Re quested Visits Authorized [id number] Closed 1 1 Encounter Details Date Type Department Care Team (Late st Contact Info) Description 10/05/2014 9:25 AM CUTTER APPRENTICE HAND Office Visit [facility] Urgent [address] [address] Karina Schreiber MD [address] [place] [address] Sinusitis (Primary Dx); Sore throat Social History Tobacco Use Types Packs/Day [...] Sign Reading Time Taken Comments Blood Pressure 113/77 10/05/2014 9:39 AM CUTTER APPRENTICE HAND Pulse 79 10/05/2014 9:39 AM CUTTER APPRENTICE HAND Temperature 36.6 ??C (97.9 ??F) 10/05/2014 9:39 AM CS T Respiratory Rate 20 10/05/2014 9:39 AM CUTTER APPRENTICE HAND Oxygen Saturation 97% 10/05/2014 9:39 AM CUTTER APPRENTICE HAND Inhaled Oxygen Concentration - - Weight 79.4 kg (175 lb) 10/05/2014 9:39 AM CUTTER APPRENTICE HAND Height 170.2 cm (5' 7 ) 10/05/2014 9:39 AM CUTTER APPRENTICE HAND Body Mass Index 27.41 10/05/2014 9:39 AM CUTTER APPRENTICE HAND documented in this encounter Progress Notes * Karina Schreiber MD - 10/05/2014 9:53 AM CST HISTORY OF PRESENT ILLNESS Fabiana Pryor, a 39 y.o. female. HPI Comments: Sinus pressure and pain. Congestion. No fevers. Cough, non productive. The history is provided by the patient. The medical record reflects the History of Present Illness as obtained by myself in discussion withthe patient. Upper Respiratory Symptoms Presenting symptoms: congestion, cough and sore throat Presenting symptoms: no ear pain, no fever and no rhinorrhea Associated symptoms: no arthralgias, no headaches, no myalgias, no neck pain, no sneezing and no wheezing Chief Complaint Patient presents with ??? Upper Respiratory Symptoms presents with c/o nasal congestion and cough x5 days. Jennifer Dunbar 10/05/14 @ 0939. Allergies Allergen Reactions ??? Sulfa (Sulfonamide Antibiotics) Hives Current Outpatient Prescriptions Medication Sig Dispense Refill ? ? Naproxen Na-Pseudoephedrine (ALEVE COLD & SINUS) 220-120 mg Tablet Sustained Release 12HR Take 1 Tab by mouth every 12 hours. Takes only once daily ??? amoxicillin (AMOXIL) 875 mg tablet Take 1 Tab by mouth every 12 hours for 10 days. 20 Tab 0 ??? fluticasone (FLONASE) 50 mcg/spray [place], Suspension SPRAY TWICE IN EACH NOSTRIL EVERY DAY 16 Gram 1 ??? Levonorgestrel (MIRENA) 20 mcg/24 hr Intrauterine IUD by Intrauterine route. No current facility-administered medications for this visit. Past Medical History Diagnosis Date ??? Temporomandibular joint disorders, unspecified occasional jaw pain/ rare popping ??? Family history of allergic disorder succinylcholine ??? Asthma ??? Allergic rhinitis 08/05/2013 History Smoking status ??? Former Smoker ??? Quit date: 07/09/2010 Smokeless tobacco ??? Never Used REVIEW OF SYSTEMS Review of Systems Constitutional: Negative for fever and chills. HENT: Positive for congestion, sinus pressure and sore throat. Negative for ear pain, facial swelling, postnasal drip, rhinorrhea, sneezing and tinnitus. Respiratory: Positive for cough. Negative for shortness of breath and wheezing. Cardiovascular: Negative for chest pain. Musculoskeletal: Negative for arthralgias, myalgias, neck pain and neck stiffness. Skin: Negative for rash. Neurological: Negative for weakness and headaches. Hematological: Negative for adenopathy. PHYSICAL EXAM BP 113/77 Pulse 79 Temp(Src) 97.9 ??F (36.6 ??C) (Oral) Resp 20 Ht 5' 7 (1.702 m) Wt 175lb (79.379 kg) BMI 27.4 kg/m2 SpO2 97% Physical Exam Nursing note and vitals reviewed. Constitutional: She is oriented to person, place, and time. She appears well- developed and well-nourished. HENT: Head: Normocephalic and atraumatic. Right Ear: Hearing, tympanic membrane, external ear and ear canal normal. Left Ear: Hearing, tympanic membrane, external ear and ear canal normal. Nose: Nose normal. Mouth/Throat: Uvula is midline, oropharynx is clear and moist and mucous membranes are normal. Eyes: Conjunctivae are normal. Pupils are equal, round, and reactive to light. Neck: Normal range of motion. Neck supple. Cardiovascular: Normal rate and regular rhythm. Pulmonary/Chest: Effort normal and breath sounds normal. Musculoskeletal: Normal range of motion. Neurological: She is alert and oriented to person, place, and time. She has normal reflexes. Skin: Skin is warm and dry. Psychiatric: She has a normal mood and affect. Her behavior is normal. Judgment and thought contentnormal. Rapid strep- negative ASSESSMENT and PLAN: ICD-9-CM ICD-10-CM 1. Sinusitis 473.9 J32.9 2. Sore throat 462 J02.9 POC RAPID STREP A amoxicillin (AMOXIL) 875 mg tablet Follow up with your PCP if no better in 1 week or sooner if worsens. See AVS summary for care notes. ER APPRENTICE HAND * Nicole Hyman RN - 10/05/2014 9:42 AM CST Ambulatory to treatment room with c/o sinus drainage, cough and now sore throat x1 week. States nasal secretions yellow. Alert, coherent and speaks in sentences. Skin warm and dry. Afebrile. Posterior oropharynx w/erythema noted. Throat swabbed for POC strep. ER APPRENTICE HAND documented in this encounter Miscellaneous Notes * Patient Instructions - Karina Schreiber MD - 10/05/2014 9:51 AM CST Images from the original note were not included. [facility] Patient Instructions Sinusitis: After Your Visit Your Care Instructions Sinusitis is an infection [...] for yourself at home? ?? Take an mnox-bye-pmtkcej pain medicine, such as acetaminophen (Tylenol), ibuprofen (Advil, Motrin), or naproxen (Aleve). Read and follow all instructions on the label. ?? If the doctor prescribed antibiotics, take them as directed. Do not stop taking them just because you feel better. You need to take the full course of antibiotics. ?? Be careful when taking dbzo-nmq-ggfwndh cold or flu medicines and Tylenol at [...] nose drops at a grocery store or drugsRemotiume. Or you can make your own at [...] Where can you learn more? Go to [place], choose I Want To... and then choose Search Medical Information. Enter I933 in the search box to learn more about Sinusitis: After Your Visit. Current as of: December 04, 2013 Content Version: 10.2 ?? [id number] [employer]. Care instructions adapted under license by [employer]. [facility] disclaims any warranty or liability for your use of this information. This information is not intended to represent the ethical and uatsdin beliefs of [facility]. This care instruction is for use with your licensed healthcare professional. If you have questions about a medical condition or this instruction, always ask your healthcare professional. [employer] disclaims any warranty or liability for your use of this information. Please follow with your primary care physician, Annalisa Christopher MD in 48-72 hours if NO better. If your symptoms worsen recheck at your local ER. If you do not have a primary doctor, [facility] offers a free referral service by calling [phone], , or toll free . This information can also be accessed on the web at [email or web address]. If a test or physician referral was ordered for you today, you can schedule these by calling Central Testing Scheduling (CTS),[phone], or Central Referral Scheduling (CRS), during normal work hours. Inform them you had a test or referral ordered during your visit at the [facility]. If you are female and on hormone based control there is a slight increase in risk with the use of antibiotics, the patient is asked to back up her OCP with condom or other method during this (or any) cycle during which she is taking antibiotics. Thank you for choosing to the [facility] Urgent [facility] Location [address] [facility] [address] [place] [address] [place] [address] [facility] Location [address] [facility] [address] [facility] [address] [place] [address] [place] [address] [phone] [facility] [address] [facility] [place] [address] IMPORTANT: You were examined and treated today on an urgent basis. This was not a substitute for, nor an effort to provide, complete and ongoing medical care. On arrival to [facility], you may have reported taking home medications [...] appropriate medical personnel. Thank-you again for choosing [facility]. ER APPRENTICE HAND documented in this encounter Plan of Treatment Upcoming Encounters Date Type Department Care Team (Late st Contact Info) Description 04/25/2025 8:20 AM CDT Office Visit [facility] Primary Care - [facility] [address] [facility] [address] [place] [address] Annalisa Christopher MD [address] [facility] [address] [place] [address] documented as of this encounter Procedures Procedure Name Priority Date/Time Associated Diagnosis Comments POC RAPID STREP A ANTIGEN Routine 10/05/2014 10:03 AM CUTTER APPRENTICE HAND Sore throat documented in this encounter Results * POC RAPID STREP A (10/05/2014 10:03 AM CUTTER APPRENTICE HAND) RAPID STREP A ANTIGEN POC Negative Negative INTERFACE SYSTEM CLIA LICENSE [id number] INTERF [place] SYSTEM Specimen from throat (specimen) 10/05/2014 10:03 AM CUTTER APPRENTICE HAND 10/05/2014 10:03 AM CUTTER APPRENTICE HAND Comment:THROAT Karina Schreiber MD POINT OF CARE TESTIN G INTERFACE SYSTEM Refer to clinic/hospital department documented in this encounter Visit Diagnoses Diagnosis Sinusitis- Primary Unspecified sinusitis (chronic) Sore throat Acute pharyngitis documented in this encounter Care Teams Epic Radiant Analyst Relationship Specialty Start Date End Date Annalisa Christopher MD [address] [facility] [address] [place] [address] PCP - General 07/07/08 documented as of this encounter
--- OUTSIDE RECORDS SUMMARY | 2024-10-06 18:15 | XMS_ITS | Encounter Summary ---
Author Organization [facility] Address [address] [place] [address] Care Team Providers Care Hearing Aid Assembly Supervisor Name Role Phone Annalisa Christopher MD Primary Care Provider [phone] Reason for Visit * Reason Comments Medication Refill Encounter Details Date Type Department Care Team (Late st Contact Info) Description 09/20/2014 Refill [facility] [address] [place] [address] [address] [place] [address] Annalisa Christopher MD [address] [place] [address] [address] [place] [address] Social History Tobacco Use Types [...] 04/25/2025 8:20 AM CDT Office Visit [facility] [address] [place] [address] [address] [place] [address] Annalisa Christopher MD [address] [place] [address] [address] [place] [address] documented as of this encounter Visit Diagnoses Not on filedocumented in this encounter Care Teams Hearing Aid Assembly Supervisor Relationship Specialty Start Date End Date Annalisa Christopher MD [address] [place] [address] PCP - General 07/07/08 documented as of this encounter
--- OUTSIDE RECORDS SUMMARY | 2024-10-06 18:15 | XMS_ITS | Encounter Summary ---
Author Organization [facility] Address [address] [place] [address] Care Team Providers Care Aviation Mechanic Name Role Phone Annalisa Christopher MD Primary Care Provider [phone] Reason for Visit * Auth/Cert (Routine) - Closed Specialty Diagnoses / Procedures Referred By Contac t Referred To Contact Diagnoses high bp Procedures SECTION Referral ID Status Reason Start Date Expiration Date Visits Re quested Visits Authorized [id number] Closed 08/31/2011 08/30/2012 1 1 Encounter Details Date Type Department Care Team (Late st Contact Info) Description 08/31/2011 12:45 PM CARE ATTENDANT - 08/31/2011 2:15 PM CARE ATTENDANT Surgery [facility] Labor & [address] [place] [address] Douglas Jeffrey MD [address] [facility] [address] [address] SECTION Surgery Details Date/Time Status Location OR Service Patient Class Case Class Case Type Trauma Case? 08/31/2011 12:45 PM Posted [facility] L&D C-S C Obstetrics Inpatient Elective No Panel 1 Procedure LRB Anes Op Region Wound Class Comments SECTION N/A Epidural Abdomen Clean Contami nated-II EDC 09/16 RPT Surgeon Surgeon Role Service Panel Douglas Jeffrey MD Primary Obstetrics 1 documented in this encounter Social History Tobacco Use Types Packs/Day Years [...] Sign Reading Time Taken Comments Blood Pressure 106/47 08/31/2011 2:02 PM CARE ATTENDANT Pulse 101 08/31/2011 2:02 PM CARE ATTENDANT Temperature 36.1 ??C (97 ??F) 08/31/2011 1:48 PM CARE ATTENDANT Respiratory Rate 25 08/31/2011 2:02 PM CARE ATTENDANT Oxygen Saturation 95% 08/31/2011 2:02 PM CARE ATTENDANT Inhaled Oxygen Concentration - - Weight 104.8 kg (231 lb) 08/30/2011 5:21 PM CARE ATTENDANT Height 170.2 cm (5' 7 ) 08/30/2011 5:21 PM CARE ATTENDANT Body Mass Index 36.18 08/30/2011 5:21 PM CARE ATTENDANT documented in this encounter Discharge Summaries * Gavin Wolf MD - 09/04/2011 9:46 AM CST Patient: Fabiana Pryor / 36 y.o. / female : 1975 Admit date: 08/30/2011 Discharge date: 09/04/2011 Attending Physician: Gavin Wolf MD Principal and Secondary Diagnoses 1. IUP at 37w5d weeks 2. Repeat Principal and Secondary Procedures 1. Low Transverse Pertinent History & Physical See H&P. Hospital Course See operative report for C-sect indications & procedure. Post operatively the patient did well.On POD#1, patient's reyes catheter was removed and she voided spontaneously. Her diet was advanced as tolerated. She ambulated without difficulty. On POD#2 her epidural was discontinued and her pain was controlled with PO pain meds. She was discharged home is a stable condition on post-op day #4. Discharge Labs Lab Results Component Value Date ABO/RH TYPE B Positive 08/30/2011 Immunization History Administered Date(s) Administered ? ? TDAP Vaccine > 7 YO IM 09/03/2011 Discharge Condition: stable. Disposition She is discharged to home. See discharge instructions. She'll follow up in the office in 2 weeks. Discharge Medications Current Discharge Medication List START taking these medications Details oxyCODONE-acetaminophen (PERCOCET) 10-325 mg Oral Tab Take 1 Tab by mouth every 4 hours as needed for Pain, Severe (For Pain Scale 7-10). Qty: 25 Tab, Refills: 0 docusate sodium (COLACE) 100 mg Oral capsule Take 1 Cap by mouth 2 times daily. Qty: 30 Cap, Refills: 3 ibuprofen (MOTRIN) 600 mg Oral tablet Take 1 Tab by mouth every 6 hours as needed for Pain. Qty: 30 Tab, Refills: 3 CONTINUE these medications which have NOT CHANGED Details VITS W-CA,FE,FA,<1MG, ( VITAMIN ORAL) Take by mouth. ATTENDANT documented in this encounter Discharge Instructions * Discharge Instructions* Phuong Kern RN - 09/04/2011 10:20 AM CARE ATTENDANT PRESCRIPTIONS Prescriptions given? Yes ACTIVITY/EXERCISE Recovery is a progressive process. It may take 6 to 8 weeks to return to pre- activity levels. Take time to rest each day. Limit visitors for the first few weeks. If you smoke you are advised to quit. Ask your health care provider for advice if you need assistance to stop smoking. Avoid second-hand smoke exposure and do not let people smoke in your home. BREAST CARE Wear a well fitting support bra, day and night. IF : ?? Wash breasts with warm water only during your daily shower ?? Do not wash breast before or after each feeding as this may cause dry, cracked nipples ?? For sore nipples, apply colostrum or breast milk to promote healing. Purified lanolin may also be applied to nipple and cover with breast pad. Lanolin does not need to be washed off prior to next feeding. ?? If breasts are engorged, regularly remove milk from the breasts every 1 1/2 - 3 hours (via or use of a hospital grade pump). For additional comfort, apply cold compresses for 10 - 15minutes as needed. ?? If using breast pads, change with each feeding ?? IF BOTTLE FEEDING ?? Avoid breast stimulation, such as showers and pumping breasts ?? If breasts are painful and engorged, apply ice packs for 15 - 20 minutes to the breasts or underthe arms. VAGINAL DISCHARGE Bleeding diminishes in amount each day. The color will change from red to pink to yellow-white. Thedischarge may last 2 - 5 weeks. It may increase and become bright red with activity but rest shouldrelieve this. Do not douche or use tampons. HEMORRHOIDS If they appear in or at the time of delivery, they will slowly disappear. Use of Tucks, sitz baths, or local medication will give relief. Avoid constipation. ABDOMINAL CRAMPS After- pains may be felt when . Talk with your doctor about pain medication. MENSTRUATION You may start to menstruate in 6 - 10 weeks if you are not or within 6 months if you are . The first two periods are often irregular and may be very heavy with clots. It may take a few months to establish a regular cycle and it may be somewhat different in length from before . SEXUAL INTERCOURSE You may resume intercourse after approximately four weeks or when the perineal area is not tender and vaginal bleeding has subsided. control measures should be used when you resume sexual intercourse. You may shower daily. After every shower pat the incision dry. For ease of movement, hold a pillow against the incision when you get up from a lying or sitting position. SIGNS/SYMPTOMS TO REPORT Call your doctor if you have any of the following: Fever higher than 100 degrees or chills Fainting Frequency or burning with urination Heavy (more than 1 pad per hour), prolonged or foul smelling vaginal bleeding or discharge Swelling, redness, tenderness in breasts Swelling, redness, tenderness in legs Increasing drainage, redness, or pain from incision Severe mood swings Thoughts of harming yourself or your baby ATTENDANT documented in this encounter Progress Notes * Mello Stuart MD - 09/04/2011 6:28 AM CST neurodiagnostic technician Progress Note Subjective: Pain well controlled with oral medications. Tolerating regular diet and ambulation. Voiding without complaints. Lochia normal. No complaints this morning. Objective: Filed Vitals: 09/03/11 0730 09/03/11 1230 12/07/05 203809/04/11 0021 BP: 120/70 118/70 120/80 130/88 Pulse: 88 92 88 84 Temp: 98.2 ??F (36.8 ??C) 98.3 ??F (36.8 ??C) 98.3 ??F (36.8 ??C) 98.2 ??F (36.8 ??C) TempSrc: Oral Oral Oral Oral Resp: 18 20 20 20 Height: Weight: SpO2: HEENT: NC, AT Abd: Soft, firm fundus below umbilicus, incision clean/dry/intact Ext: No calf tenderness Patient Active Problem List Diagnoses ??? Extrinsic Asthma, Unspecified ??? Anxiety State, Unspecified ??? Iron Deficiency Anemia Secondary to Blood Loss (Chronic) ??? Migraine ??? History of section ??? demise ??? GHTN, ctxns, h/o stillbirth, asthma, RCS 08/31 @ 1245 ??? S/P 08/31, GHTN Assessment/Plan: POD#4 s/p delivery 1. Vital signs stable, afebrile 2. Continue post-op cares 3. Anticipate discharge home per attending Mello Stuart MD ATTENDANT * Gavin Wolf MD - 09/03/2011 9:05 AM CST Patient examined Agree With above bhavani ATTENDANT * Mello Stuart MD - 09/03/2011 7:10 AM CST neurodiagnostic technician Progress Note Subjective: Pain well controlled with oral medications. Tolerating regular diet and ambulation. Voiding without complaints. Lochia normal. No complaints this morning. Objective: Filed Vitals: 09/02/11 0452 09/02/11 0740 09/02/11 1139 09/02/111952 BP: 118/78 108/70 126/74 122/64 Pulse: 92 84 80 97 Temp: 98 ??F (36.7 ??C) 97.8 ??F (36.6 ??C) 97.3 ??F (36.3 ??C) 97.8 ??F (36.6 ??C) TempSrc: Oral Oral Oral Oral Resp: 16 16 18 18 Height: Weight: SpO2: HEENT: NC, AT Abd: Soft, firm fundus below umbilicus, incision clean/dry/intact Ext: No calf tenderness Patient Active Problem List Diagnoses ??? Extrinsic Asthma, Unspecified ??? Anxiety State, Unspecified ??? Iron Deficiency Anemia Secondary to Blood Loss (Chronic) ??? Migraine ??? History of section ??? demise ??? GHTN, ctxns, h/o stillbirth, asthma, RCS 08/31 @ 1245 ??? S/P 08/31, GHTN Assessment/Plan: POD#3 s/p delivery 1. Vital signs stable, afebrile -Temp (24hrs), Av.6 ??F (36.4 ??C), Min:97.3 ??F (36.3 ??C), Max:97.8 ??F (36.6 ??C) 2. Continue post-op cares -increase ambulation -continue oral pain medications and general diet Mello Stuart MD ATTENDANT * Douglas Jeffrey MD - 09/02/2011 8:50 AM CST Pt denies complaints. Tolerating regular diet. Passing flatus. Lochia WNL. Blood pressure 108/70, pulse 84, temperature 97.8 ??F (36.6 ??C), temperature source Oral, resp. rate 16, height 5' 7 (1.702 m), weight 231 lb (104.781 kg), last menstrual period 12/13/2010, SpO2 97.00%, not currently . CV : RRR Lungs: CTA Abdomen soft, nontender. Fundus firm. Incision CDI A/P: POD#1 -doing well, continue care. ATTENDANT * Mello Stuart MD - 09/02/2011 8:24 AM CST neurodiagnostic technician Progress Note Subjective: Pain well controlled. Denies chest pain, shortness of breath, fevers, chills, or calf pain. Tolerating regular diet and ambulation. Voiding without complaints. Lochia normal. No complaints this morning. Objective: Filed Vitals: 09/02/11 0000 09/02/11 0200 09/02/11 0452 09/02/11 0740 BP: 122/80 118/78 108/70 Pulse: 96 92 84 Temp: 98.1 ??F (36.7 ??C) 98 ??F (36.7 ??C) 97.8 ??F (36.6 ??C) TempSrc: Oral Oral Oral Resp: 18 16 16 16 Height: Weight: SpO2: HEENT: NC, AT Abd: Soft, firm fundus below umbilicus, incision clean/dry/intact Ext: No calf tenderness Intake/Output Summary (Last 24 hours) at 09/02/11 0824 Last data filed at 09/02/11 0754 Gross per 24 hour Intake 4528 ml Output 2650 ml Net 1878 ml Patient Active Problem List Diagnoses ??? Extrinsic Asthma, Unspecified ??? Anxiety State, Unspecified ??? Iron Deficiency Anemia Secondary to Blood Loss (Chronic) ??? Migraine ??? History of section ??? demise ??? GHTN, ctxns, h/o stillbirth, asthma, RCS 08/31 @ 1245 ??? S/P 08/31, [place] Assessment/Plan: POD#2 s/p delivery 1. Vital signs stable, afebrile -Temp (24hrs), Av.7 ??F (36.5 ??C), Min:97.2 ??F (36.2 ??C), Max:98.1 ??F (36.7 ??C) 2. Continue post-op cares -oral pain medications -may shower Mello Stuart MD ATTENDANT * Surjit Clifton MD - 09/01/2011 6:45 AM CST neurodiagnostic technician Progress Note Subjective: Pain well controlled. Denies chest pain, shortness of breath, fevers, chills, or calf pain. Positive flatus. Lochia normal. No complaints. Objective: Filed Vitals: 08/31/11 2200 09/01/11 0005 09/01/11 0200 09/01/11 0605 BP: 120/68 112/70 110/68 Pulse: 110 82 80 78 Temp: 98.3 ??F (36.8 ??C) 98.2 ??F (36.8 ??C) 98.5 ??F (36.9 ??C) 98.2 ??F (36.8 ??C) TempSrc: Oral Oral Oral Oral Resp: 18 18 18 18 Height: Weight: SpO2: HEENT: NC, AT Heart : RRR Lungs: CTAB Abd: Soft, firm fundus below umbilicus, incision clean/dry/intact Ext: No calf tenderness Intake/Output Summary (Last 24 hours) at 09/01/11 0645 Last data filed at 09/01/11 0605 Gross per 24 hour Intake 8148.57 ml Output 4250 ml Net 3898.57 ml Lab Results Component Value Date WBC 8.0 08/30/2011 HEMOGLOBIN 13.1 08/30/2011 HEMATOCRIT 39.7 08/30/2011 PLATELETS 189 08/30/2011 MCV 90.4 08/30/2011 Patient Active Problem List Diagnoses ??? Extrinsic Asthma, Unspecified ??? Anxiety State, Unspecified ??? Iron Deficiency Anemia Secondary to Blood Loss (Chronic) ??? Migraine ??? History of section ??? demise ??? GHTN, ctxns, h/o stillbirth, asthma, RCS 08/31 @ 1245 ??? S/P 08/31, [place] Assessment/Plan: POD#1 s/p delivery 1. Patient doing well. -pain controlled -Vital signs stable, afebrile 2. Urine output adequate -saline lock IV -d/c Reyes 3. Continue post-op cares -ambulate -advance diet as tolerated Surjit Clifton MD PGY-1 ATTENDANT * Estrellita Schneider MD - 08/31/2011 6:55 AM CST Pt sleeping Filed Vitals: 08/30/11 1825 08/30/11 1840 08/30/11 1855 08/30/11 2344 BP: 128/67 139/75 125/88 112/60 Pulse: Temp: 97.8 ??F (36.6 ??C) TempSrc: Oral Resp: 18 Height: Weight: Not examined FHR reactive [place]- irreg ctx Plan for repeat this afternoon ATTENDANT * Nova Chang CNM - 08/30/2011 8:50 PM CST Pt continues to contract every 4-5 min , Cervix 1/long/thick FHR reactive, mod variability, cat 1 D/W , voiced pt's concerns to , will admit to L&D for repeat C/S in 6hours ATTENDANT * Nova Chang CNM - 08/30/2011 7:47 PM CST Pt continues to contract every 3 min, PIH labs WNL, will continue to monitor , Procardia 10 just given ATTENDANT documented in this encounter H&P Notes * Shelly Parry CNM - 08/30/2011 5:46 PM CST OB H&P Chief Complaint: Fabiana Pryor is a 36 y.o. female 37w4d weeks gestation who presents to the [facility] from the office. For the evaluation of increased BP (150/100 per pt). Patient denies FLORES, blurry vision, and RUQ pain. Patient reports no bleeding, no leaking, occasional contractions, normal movement. Her primary flight engineer instructor is Douglas Jeffrey MD. Current Problem List: 1. H/o demise at 38 wks 2. H/o CS x1 d/t malpresentation OB History Grav Para Term Abortions TAB SAB Ect Mult Living 7 2 2 4 4 1 # Outc Date GA Lbr Ramiro/2nd Wgt Sex Del Anes PTL Lv 1 1998 2 1999 3 TRM 05/26 38w0d M ND Comments: cord accident 4 TRM 11/26 38w0d 2oc80st(3.487kg) F LTCS EPI No Yes Comments: malpresentation 5 2008 6 2009 Comments: D&C 7 CUR GYNHX/ Past Medical History Diagnosis Date ??? Temporomandibular joint disorders, unspecified occasional jaw pain/ rare popping ??? Family history of allergic disorder succinylcholine ??? Asthma Past Surgical History Procedure Date ??? Hx breast augmentation 2007 [facility] ??? Pr dilation/curettage,diagnostic 09/08/2010 DILATATION AND CURETTAGE SUCTION performed by DOUGLAS JEFFREY at [facility] ??? Pr delivery only 2004 History Social History ??? Marital Status: Spouse Name: N/A Number of Children: N/A ??? Years of Education: N/A Occupational History ??? Social History Main Topics ??? Smoking status: Former Smoker Quit date: 07/09/2010 ??? Smokeless tobacco: Never Used ??? Alcohol Use: No ??? Drug Use: No ??? Sexually Active: Yes -- Male partner(s) LMP 06/05/10 Other Topics Concern ??? Not on file Social History Narrative ??? No narrative on file Family History Problem Relation Age of Onset ??? Hypertension Father ??? Heart Disease Father ??? Diabetes Mother ??? Heart Disease Mother ??? Healthy Brother ??? Other Brother Crohn's ??? Breast Cancer Neg Hx ??? Ovarian Cancer Neg Hx ??? Colon Cancer Neg Hx ??? Healthy Daughter Prescriptions prior to admission Medication Sig Dispense Refill ? ? VITS W-CA,FE,FA,<1MG, ( VITAMIN ORAL) Take by mouth. Allergies Allergen Reactions ??? Sulfa (Sulfonamide Antibiotics) Hives The above has been reviewed with the patient & documented in the electronic record. Review of Systems No fever, SOB, no dysuria, or GI complaints Exam: Filed Vitals: 08/30/11 1716 08/30/11 1721 BP: 142/74 136/71 Pulse: 114 102 Temp: 97.3 ??F (36.3 ??C) TempSrc: Oral Resp: 16 Height: 5' 7 (1.702 m) Weight: 231 lb (104.781 kg) Additional B/P's 147/74 133/74 125/68 128/67 General: alert, no distress Lungs: clear to auscultation bilaterally Heart: regular rate & rhythm, no murmur Abdomen: soft, gravid, no fundal tenderness Extremities: Nl +1 edema +1 DTRs no clonus FHT: 140 Moderate variability +accels no decels TOCO: UC's q 3-6min mild Cervix: Dilation: Ext 1cm internal closed Effacement: long firm Station: high Lab Review GBS: unknown Labs: CBC, AST, ALT, LDH, URIC ACID, UA Results for orders placed during the hospital encounter of 08/30/11 (from the past 24 hour(s)) URINALYSIS WITH REFLEX CULTURE Component Value Range URINE CULTURE ORDER Culture ordered URINALYSIS Component Value Range COLOR UA Pale Yellow CLARITY UA Clear Clear SPECIFIC GRAVITY UA 1.007 1.001 - 1.035 PH UA 6.5 5.0 - 8.0 LEUKOCYTE ESTERASE UA 3+ (*) Negative NITRITE UA Negative Negative PROTEIN UA Negative Negative GLUCOSE UA Negative Negative KETONES UA Negative Negative UROBILINOGEN UA <1 <=1 (mg/dL) BILIRUBIN UA Negative Negative BLOOD UA Negative Negative WBC UA 3 0 - 5 (/HPF) BACTERIA UA 1+ (*) None Seen (/HPF) EPITHELIAL CELLS, URINE 2-5 CBC WITH DIFFERENTIAL Component Value Range WBC 8.0 4.0 - 9.8 (K/uL) RBC 4.39 3.90 - 4.90 (M/uL) HEMOGLOBIN 13.1 11.8 - 14.8 (g/dL) HEMATOCRIT 39.7 35.5 - 44.0 (%) MCV 90.4 82.0 - 99.0 (fL) MCH 29.8 27.2 - 32.6 (pg) MCHC 33.0 31.5 - 35.5 (%) PLATELETS 189 140 - 350 (K/uL) MPV 11.5 9.3 - 12.4 (fL) RDW 14.3 11.5 - 14.5 (%) RDW-STDEV 46.5 37.1 - 48.7 (fL) NEUTROPHILS 69 45 - 70 (%) LYMPHOCYTES 19 16 - 45 (%) MONOCYTES 11 3 - 13 (%) EOSINOPHILS 1 0 - 7 (%) BASOPHILS 0 0 - 2 (%) NEUTROPHIL ABSOLUTE 5.56 1.90 - 7.00 (K/uL) LYMPHOCYTE ABSOLUTE 1.52 0.70 - 4.50 (K/uL) MONOCYTE ABSOLUTE 0.84 0.10 - 1.30 (K/uL) EOSINOPHIL ABSOLUTE 0.08 0.00 - 0.70 (K/uL) BASOPHILS ABSOLUTE 0.01 0.00 - 0.20 (K/uL) ALT Component Value Range ALT 20 0 - 31 (U/L) AST Component Value Range AST 19 12 - 32 (U/L) LACTATE DEHYDROGENASE Component Value Range LD (LACTATE DEHYDROGENASE) 182 135 - 214 (U/L) URIC ACID Component Value Range URIC ACID 4.8 2.3 - 6.6 (mg/dL) Assessment: 1. 37w4d weeks gestation 2. tracing category 1 3. R/o preeclampsia labs WNL 4. H/o CS x1 Plan: Observe in [facility] Orders Placed This Encounter ??? CBC with Diff ??? ALT ??? AST ??? LD ??? URIC ACID ??? U/A with reflex culture ??? DIET CLEAR LIQUID ??? Vital Signs per Protocol ??? Education, Smoking Cessation and Second Hand Smoke Avoidance ??? BEDREST With Bathroom Privileges ??? Electronic Monitoring ??? Nonstress Test Notify the attending global implementation manager, Dr Schneider @ 1855, 10mg procardia given as ordered, hydrate and feed ATTENDANT documented in this encounter Procedure Notes * [facility] Scanning, [facility] - 09/08/2011 8:45 PM CSTAssociated Order(s): TELEMETRY REPORT ATTENDANT documented in this encounter OR Notes * OR Anesthesia - St[facility] Scanning, [facility] - 09/09/2011 3:34 PM CST ATTENDANT * OR Anesthesia - Ofelia Chilel MD - 09/02/2011 7:25 AM CST Post - Operative Pain Service Note Post op day #2 Epidural 08/31/11 1229-Rate: 10 (09/02/11451) Demerol (2 mg/cc) epidural infusing at 10 cc/hr VSS: Pulse: 92 (09/02/11451) BP: 118/78 mmHg (09/02/11451) Resp: 16 (09/02/11451) Temp: 98 ??F (36.7 ??C) (09/02/11451) Pain Rating: Rest: 0 (09/02/11451) Patient is tolerating PO intake. Epidural infusion is no longer essential for post operative analgesia. Plan: Discontinue epidural. OB Anesthesia signing off post-op pain management. Epidural catheter was removed. Tip was intact. Site is clean dry and without erythema. Ofelia Chilel MD 09/02/2011 7:26 AM ATTENDANT * OR Anesthesia - Rachael Chisholm MD - 09/01/2011 9:12 AM CST Post - Operative Pain Service Note Post op day #1. Epidural 08/31/11 1229-Rate: 10 (09/01/11604) Demerol (2 mg/cc) epidural infusing at 10 cc/hr Vitals: Pulse: 88 (09/01/11799) BP: 100/50 mmHg (09/01/11799) Resp: 18 (09/01/11604) Temp: 97.4 ??F (36.3 ??C) (09/01/11799) VPS Pain Rating: Rest: 0 (09/01/11604) Sedation: no Pruritis: no Nausea/vomitting: no Plan: No change in treatment. Will continue to follow. Rachael Chisholm MD OB Anesthesia Post-Operative Assesment 09/01/2011 9:13 AM Fabiana Pryor, status post regional anesthesia for section. Patient seen and evaluated: Respiratory Function Resp: 18 (09/01/11604) SpO2: 95 % (08/31/11 1446) Able to breathe and cough freely Able to maintain O2 saturation greater than 92% on room air Cardiovascular Function Heart Rate (Monitored): 20 bpm (09/01/11799) BP: 100/50 mmHg (09/01/11799) BP within 20% of preanesthetic level Mental Status, Neuro Fully awake. Able to move 4 extremities voluntarily. No focal sensory deficits or weakness. Temperature Temp: 97.4 ??F (36.3 ??C) (09/01/11799) Pain Pain Rating: Rest: 0 (09/01/11604) Presence of Pain: denies pain/discomfort (09/01/11604) Postoperative Hydration Intake/Output Summary (Last 24 hours) at 09/01/11912 Last data filed at 09/01/11604 Gross per 24 hour Intake 8148.57 ml Output 4250 ml Net 3898.57 ml Nausea and Vomiting Able to drink fluids , no nausea and no vomiting No apparent Anesthesia related complications Rachael Chisholm MD 09/01/2011 9:13 AM ATTENDANT * OR Anesthesia - Parker Camacho DO - 08/31/2011 3:52 PM CST OB Anesthesia Recovery Room Postanesthesia Evaluation Including [facility] Modified Sean Score Patient seen and evaluated: RESPIRATORY FUNCTION: Respiration: able to breath and cough freely (08/31/11 145) [2=able to breathe and cough freely, 1=dyspnea, limited breathing or tachypnea, 0=apnea or mechanicventilator] O2 Saturation: able to maintain O2 saturation greater than 92% on room air (08/31/11 1457) [2=able to maintain O2 saturation greater than 92% on room air, 1=needs O2 inhalation to maintain O2 saturation greater than 90%, 0=O2 saturation less than 90% even with O2 supplement] Resp: 22 (08/31/11 1545)SpO2: 95 % (08/31/11 1446) CARDIOVASCULAR FUNCTION: Heart Rate (Monitored): 86 bpm (08/31/11 1519) BP: 118/80 mmHg (08/31/11 1545) Circulation: BP within 20% of preanesthetic level (08/31/111456) [2=BP within 20% of preanesthetic level, 1=BP within 20-49% of preanesthetic level, 0=BP within 50%of preanesthetic level] MENTAL STATUS, NEURO, ACTIVITY: Consciousness: fully awake (08/31/111456) [2=fully awake, 1=arousable on calling, 0=not responding] Activity: able to move 4 extremities voluntarily or on command (08/31/111456) [2=able to move 4 extremities voluntarily or on command, 1=able to move 2 extremities voluntarily or on command, 0=unable to move extremities voluntarily or on command] Ambulation: able to stand up and walk straight, on ordered bedrest, or performing at patient's prior level of function (08/31/111456) [2=able to stand up and walk straight, on ordered bedrest, or performing at patient's prior level of function, 1=vertigo when erect, 0=dizziness when supine] TEMPERATURE: Temp: 98.2 ??F (36.8 ??C) (08/31/11 154) PAIN: Pain Rating: Rest: 0 (08/31/11 1504) Pain: pain free (08/31/111456) [2=pain free, 1=pain handled by oral medication, 0=pain requiring parenteral medication] NAUSEA AND VOMITING: Fasting/Feeding: able to drink fluids, ice chips or NPO (08/31/111456) [2=able to drink fluids, ice chips or NPO, 1=nauseated, 0=nausea and vomiting] POSTOPERATIVE HYDRATION: Urine Output: has voided, adequate urine output per device, or not applicable (08/31/111456) [2=has voided, adequate urine output per device, or not applicable, 1=unable to void but comfortable, 0=unable to void and uncomfortable] WOUND: Dressing: dry and clean or not applicable (08/31/111456) [2=dry and clean or not aplicable, 1=wet, marked and not increasing, 0=growing area of wetness] [facility] Modified Sean Score: Score: 20 (08/31/11 1457) COMMENTS: No apparent Anesthesia related complications Parker Camacho DO 08/31/2011 3:52 PM ATTENDANT * Operative Report - Briana Wiggins MD - 08/31/2011 1:51 PM CST Note Section Operative Note Date of Procedure: 08/31/2011 Time: Information for the patient's : Zaki Pryor [[id number]] Delivery Time: 1318 (08/31/11 1344) Preoperative Diagnosis: 1. Intrauterine at 37w5d 2. previous 3. GHTN Postoperative Diagnosis: Same Procedure: Repeat Low Transverse Section via Pfannensteil Surgeon: Douglas Jeffrey MD Soil Science Technical Officer: Briana Wiggins MD Anesthesia: Epidural Complications: None EBL: 800cc Fluids: Lactated Ringers Urine Output: Clear Indications: 36 y.o. @ 37w5d who presented last PM with c/o back pain and elevated BP. She was found to have GHTN. She has a h/o previous c/s. H/o stillborn. The decision was then made to proceed with . The risks and benefits of the procedure were discussed with the patient byDouglas Jeffrey MD. Findings: female in cephalic presentation. Clear amniotic fluid. No nuchal cord. Apgars Information for the patient's : Zaki Pryor [[id number]] 1 Minute Score: 7 (08/31/11 1343) 5 Minute Score: 8 (08/31/11 1343) Weight Information for the patient's : Zaki Pryor [[id number]] Weight: 7 lb 12 oz (3.515 kg) (08/31/11 1343) Normal uterus, tubes, and ovaries. Specimens: none Procedure: The patient was given Ancef 2gm for prophylaxis and then taken to the operating room. She was placed in the dorsal supine position with a leftward tilt. She was then prepared and draped in the normalsterile fashion, and epidural anesthesia was found to be adequate. A Pfannensteil skin incision wasthen made with the scalpel and carried through to the underlying layer of fascia with the scalpel. The fascia was incised in the midline and the incision extended laterally with the Castrejon scissors. The superior aspect of the fascial incision was then grasped with Jordan clamps, elevated, and the underlying rectus muscles dissected off bluntly and with Castrejon scissors. Attention was then turned to the inferior aspect of the fascial incision, which in similar fashion was grasped, elevated, and the rectus muscles dissected off. The rectus muscles were then in the midline, and the peritoneum was entered bluntly. The peritoneal incision was extended superiorly and inferiorly with good visualization of the bladder. The bladder blade was then inserted and the vesicouterine peritoneum identified, grasped with a Peon clamp, and entered sharply with the Metzenbaum scissors. The incision was extended laterally and the bladder flap created digitally. The bladder blade was then reinserted and the lower uterine segment incised in a transverse fashionwith the scalpel. The uterine incision was then extended laterally by blunt dissection. The bladderblade was removed and the 's head was elevated and delivered atraumatically. The remainder ofthe was then delivered without difficulty, and the 's nose and mouth were suctioned with the bulb suction. The umbilical cord was doubly clamped and cut. The infant was then handed off to the waiting nursing staff. The placenta was then removed manually and intact. The uterus was exteriorized and cleared of all clots and debris. The uterine incision was repaired with 0- chromic gut in a running, interlocked fashion. A second layer of the same suture was used to obtain excellent hemostasis. The posterior cul-de-sac was irrigated and cleared of all clots and debris. The uterus, tubes and ovaries were examined and found to be normal. The uterus was returned to the abdomen. The gutters were then irrigated and cleared of all clots and debris. The uterine incision was once again visualized and found to be hemostatic. The peritoneum was closed with 3-0 chromic gut in a running fashion. The fascia was reapproxi mated with 0-Polysorb in a running fashion. The subcutaneous tissues were irrigated with warmed normal saline, and hemostasis was assured via bovie cautery as necessary. The subcutaneous tissues werebrought together with 3-0 plain gut. The skin was closed with ramirez. The patient tolerated the procedure well. Sponge, lap, and needle counts were correct times three. The patient was taken to the recovering room in stable condition. Briana Wiggins MD Dye Padder Operator Resident, PGY 4 ATTENDANT * OR Anesthesia - Harshil Martinez DO - 08/31/2011 12:10 PM CARE ATTENDANT OB Anesthesia Day of Surgery Pre-Anesthesia Evaluation 08/31/2011 12:10 PM Name: Fabiana Pryor Age: 36 y.o. CSN: [id number] Procedure: Procedure(s): SECTION Surgeons/Assistants: Surgeon(s) and Role: * Douglas Jeffrey MD - Primary indications: Preeclampsia, repeat Allergies Allergen Reactions ??? Sulfa (Sulfonamide Antibiotics) Hives para: Gestational age: 37w5d Prescriptions prior to admission Medication Sig Dispense Refill ? ? VITS W-CA,FE,FA,<1MG, ( VITAMIN ORAL) Take by mouth. Patient Active Problem List Diagnoses Date Noted ??? GHTN, ctxns, h/o stillbirth, asthma, RCS 08/31 @ 1245 08/30/2011 ??? History of section 02/20/2011 ??? demise 02/20/2011 ??? Migraine 10/07/2010 ??? Extrinsic Asthma, Unspecified 12/27/2007 ??? Anxiety State, Unspecified 12/27/2007 ??? Iron Deficiency Anemia Secondary to Blood Loss (Chronic) 12/27/2007 Past Medical History Diagnosis Date ??? Temporomandibular joint disorders, unspecified occasional jaw pain/ rare popping ??? Family history of allergic disorder succinylcholine ??? Asthma Past Surgical History Procedure Date ??? Hx breast augmentation 2006 [facility] ??? Pr dilation/curettage,diagnostic 09/08/2010 DILATATION AND CURETTAGE SUCTION performed by DOUGLAS JEFFREY at [facility] OR MAIN ??? Pr delivery only 2004 History Social History ??? Marital Status: Spouse Name: N/A Number of Children: N/A ??? Years of Education: N/A Occupational History ??? Social History Main Topics ??? Smoking status: Former Smoker Quit date: 07/09/2010 ??? Smokeless tobacco: Never Used ??? Alcohol Use: No ??? Drug Use: No ??? Sexually Active: Yes -- Male partner(s) LMP 06/05/10 Other Topics Concern ??? Not on file Social History Narrative ??? No narrative on file Family History Problem Relation Age of Onset ??? Hypertension Father ??? Heart Disease Father ??? Diabetes Mother ??? Heart Disease Mother ??? Healthy Brother ??? Other Brother Crohn's ??? Breast Cancer Neg Hx ??? Ovarian Cancer Neg Hx ??? Colon Cancer Neg Hx ??? Healthy Daughter Previous Anesthesia Problems/Concerns: No anesthesia problems/complications History of PONV No NPO Status:greater than 6 hours for solids Review of Systems Cardiovascular: negative Respiratory: negative Gastroenterology: negative PHYSICAL EXAM Pulse: 102 (08/30/11 172) BP: 110/58 mmHg (08/31/11 0957) Resp: 18 (08/31/111048) Temp: 98.6 ??F (37 ??C) (08/31/111048) Weight: 231 lb (104.781 kg) (08/30/11 172) Height: 5' 7 (170.2 cm) (08/30/11 172) BMI: Body mass index is 36.18 kg/(m^2). Airway: normal range of motion and supple: Airway Class: I (soft palate, uvula, fauces, tonsillar pillars visible); Mouth Opening 3+ Finger Breadth or Thyromental Distance 3+ Finger Breadth Lungs: clear to auscultation bilaterally, normal respiratory effort Heart: regular rate and rhythm, S1, S2 normal, no murmur, click, rub or gallop Neuro: grossly intact Vascular Access: Peripheral Line LABS Lab Results Component Value Date WBC 8.0 08/30/2011 HEMOGLOBIN 13.1 08/30/2011 HEMATOCRIT 39.7 08/30/2011 PLATELETS 189 08/30/2011 MCV 90.4 08/30/2011 No results found for this basename: INR, PT, PROTIMEPOC No results found for this basename: glucpoc Other Studies/Considerations: None Postop pain management discussed yes Recommendations: GI prophylaxis There is no interval changes in the patient's history or review of systems.Yes ASA Physical Status: ASA 2 - Patient with mild systemic disease with no functional limitations I have seen and examined this patient and confirm that all data is current and accurate. Yes Choice of Anesthesia/Anesthesia Plan: Regional I have discussed the anesthetic options and the risks/benefits with the patient/family. Questions have been solicited and answered. Yes Harshil Martinez DO ATTENDANT documented in this encounter Miscellaneous Notes * Scanned Form - Stl Scanning, [facility] - 09/09/2011 3:34 PM CST Electronically signed by Interface, [facility] Hand Incoming at 09/09/2011 3:34 PM CARE ATTENDANT * Scanned Form - Stl Scanning, [facility] - 09/09/2011 3:34 PM CST Electronically signed by Interface, [facility] Incoming at 09/09/2011 3:34 PM CARE ATTENDANT * Scanned Form - Stl Scanning, [facility] - 09/09/2011 3:34 PM CST Electronically signed by Interface, [facility] Incoming at 09/09/2011 3:34 PM CARE ATTENDANT * Assessment & Plan Note - Stl Scanning, [facility] - 09/09/2011 3:34 PM CST Electronically signed by Interface, [facility] Incoming at 09/09/2011 3:34 PM CARE ATTENDANT * Patient Instructions - Stl Scanning, [facility] - 09/09/2011 3:34 PM CST Electronically signed by Interface, [facility] Incoming at 09/09/2011 3:34 PM CARE ATTENDANT * Care Plan - Phuong Kern RN - 09/04/2011 6:42 PM CST Discharged to hospitality room. Comfortable. D/C teaching done. Understanding verbalized. [place] have been removed as ordered, & steri strips placed. ATTENDANT * Care Plan - Tori Cruz RN - 09/02/2011 7:01 AM CST Problem: General Plan of Care (Adult, Obstetrics) Goal: Plan of Care Review (Adult, Obstetrics) The patient and/or their event representative will communicate an understanding of their plan of care. Outcome: Progressing Pt ambulating in room without difficulty. Pt denies pain. Pain medication regimen post epidural discussed. Pt verbalize understanding. ATTENDANT * Treatment Plan - Dhruv Naqvi PHARMACIST - 08/31/2011 6:09 AM CARE ATTENDANT Images from the original [place] [address] [facility] Labor and Delivery Hemorrhage Protocol Nursing Orders: Administration Instructions: o Physician consultation required before administration for appropriate medication selection Medication Orders: o Oxytocin 20 units in 1000mL of lactated Ringer???s IV at bolus rate until satisfactory uterine response is achieved as needed after consultation with resident or attending physician o Methylergonovine (METHERGINE) 0.2mg IM every 15 minutes as needed for excessive bleeding in the immediate period as needed after consultation with resident or attending physician. Maximum of 2 doses. o Carboprost tromethamine (HEMABATE) 250 micrograms IM every 15 minutes as needed for excessive bleeding in the immediate period as needed after consultation with resident or attending physician. Maximum of 8 doses. o Mistoprostol (CYTOTEC) 200micrograms tablets, administer 800mirograms (4 tabs) per RECTUM one time as needed for excessive bleeding in the immediate period after consultation with resident of attending physician. Maximum of 1 dose. o ATTENDANT documented in this encounter Plan of Treatment Upcoming Encounters Date Type Department Care Team (Late st Contact Info) Description 04/25/2025 8:20 AM CDT Office Visit [facility] Primary Care - [address] [phone] Annalisa Christopher MD [address] [facility] [facility] [address] [place] [address] documented as of this encounter Procedures Procedure Name Priority Date/Time Associated Diagnosis Comments TELEMETRY REPORT 09/08/2011 8:45 PM CARE ATTENDANT SECTION 08/31/2011 5:23 PM CARE ATTENDANT HEPATITIS B SURFACE ANTIGEN (L&D) Stat 08/31/2011 9:53 AM CARE ATTENDANT RUBELLA IGG Stat 08/31/2011 9:53 AM CARE ATTENDANT RPR Stat 08/31/2011 9:53 AM CARE ATTENDANT TYPE AND SCREEN Stat 08/30/2011 9:15 PM CARE ATTENDANT CBC WITH DIFFERENTIAL Stat 08/30/2011 5:45 PM CARE ATTENDANT URIC ACID Stat 08/30/2011 5:45 PM CARE ATTENDANT ALT Stat 08/30/2011 5:45 PM CARE ATTENDANT AST Stat 08/30/2011 5:45 PM CARE ATTENDANT LACTATE DEHYDROGENASE Stat 08/30/2011 5:45 PM CARE ATTENDANT URINALYSIS WITH REFLEX CULTURE Stat 08/30/2011 5:33 PM CARE ATTENDANT URINALYSIS W/REFLEX MICROSCOPIC Stat 08/30/2011 5:33 PM CARE ATTENDANT URINE CULTURE Stat 08/30/2011 5:33 PM CARE ATTENDANT documented in this encounter Results * TELEMETRY REPORT (09/08/2011 8:45 PM CARE ATTENDANT) Narrative Transcriptions Stl Scanning, Him - 09/08/2011 8:45 PM CST Provider Scanning ECG ORDERABLES * HEPATITIS B SURFACE ANTIGEN (L&D) (08/31/2011 9:53 AM CARE ATTENDANT) Pathologist [facility] HEPATITIS B SURFACE AG Nonreactive Nonreactive [facility] Comment: Results called to Dr. Елена De Leon at 08/31/11 1401 and read back verified. Performed by [facility], [address], [place] [address] Blood specimen (specimen) 08/31/2011 9:53 AM CARE ATTENDANT 08/31/2011 9:56 AM CARE ATTENDANT Douglas Jeffrey MD CHEMISTRY ORDERABLES Performing Organization Address [facility] Co de Phone Number [facility] CLIA# [id number] [address] [place] [address] * RPR (08/31/2011 9:53 AM CARE ATTENDANT) [facility] RPR NON-REACT YOVANY NON-REACT YOVANY [facility] Comment: ? Lab test performed by: [facility] [address] [place] [address] NELSON FRENCH DO,MPH Blood specimen (specimen) 08/31/2011 9:53 AM CARE ATTENDANT 08/31/2011 9:56 AM CARE ATTENDANT Douglas Jeffrey MD CHEMISTRY ORDERABLES Performing Organization Address [facility] de Phone Number [facility]# [id number] [address] [facility] [address] * RUBELLA IGG (08/31/2011 9:53 AM CARE ATTENDANT) Pathologist [facility] RUBELLA IGG 2.50 Index [facility] Comment: Index ?Interpretation ? < or = 0.90 ?Negative 0.91-1.09 ?Equivocal > or = 1.10 ?Positive The presence of rubella IgG antibody suggests immunization or past or current infection with rubella virus. ? Lab test performed by: [facility] [address] [place] [address] NELSON FRENCHDO,MPH Blood specimen (specimen) 08/31/2011 9:53 AM CARE ATTENDANT 08/31/2011 9:56 AM CARE ATTENDANT Douglas Jeffrey MD CHEMISTRY ORDERABLES [facility] Reciclata [facility] CLIA# [id number] [address] [place] [address] * TYPE AND SCREEN (08/30/2011 9:15 PM CARE ATTENDANT) HISTORY CHECK History Checked [facility] LABORATORY [facility] SPECIMEN LIFE 3 days from drawdate [facility] LABORATORY SERVICES [facility] ABO/RH TYPE B Positive [facility]ORY [facility] ANTIBODY SCREEN Negative [facility] LABORATORY [facility] Blood specimen (specimen) 08/30/2011 9:15 PM CARE ATTENDANT 08/30/2011 9:23 PM CARE ATTENDANT [facility] HUMA VANESSA Performing Organization Address City/[facility]/ZIP Co de Phone Number INTERFACE SYSTEM Refer to clinic/hospital department [facility] LABORATORY [facility] CLIA# [id number] [address] [place] [address] * URIC ACID (08/30/2011 5:45 PM CARE ATTENDANT) URIC ACID 4.8 2.3 - 6.6 mg/dL [facility] [employer] Blood specimen (specimen) 08/30/2011 5:45 PM CARE ATTENDANT 08/30/2011 5:50 PM CARE ATTENDANT Shelly Luong CNM CHEMISTRY ORDERABLES [facility] LABORATORY [facility] CLIA# [id number] [address] [place] [address] * LACTATE DEHYDROGENASE (08/30/2011 5:45 PM CARE ATTENDANT) LD (LACTATE DEHYDROGENASE) 182 135 - 214 U/L [facility] LAB[facility]ATORY SERVICES [facility] Blood specimen (specimen) 08/30/2011 5:45 PM CARE ATTENDANT 08/30/2011 5:50 PM CARE ATTENDANT Shelly Ivana Cherise CNM CHEMISTRY ORDERABLES [facility] LABORATORY [facility] CLIA# [id number] [address] [place] [address] * AST (08/30/2011 5:45 PM CARE ATTENDANT) AST 19 12 - 32 U/L [facility] LA BORATORY SERVICES [facility] Blood specimen (specimen) 08/30/2011 5:45 PM CARE ATTENDANT 08/30/2011 5:50 PM CARE ATTENDANT Shelly Luong CNM CHEMISTRY ORDERABLES [facility] [employer] [facility] CLIA# [id number] [address] [place] [address] * ALT (08/30/2011 5:45 PM CARE ATTENDANT) ALT 20 0 - 31 U/L [facility] LAB ORATORY SERVICES [facility] Blood specimen (specimen) 08/30/2011 5:45 PM CARE ATTENDANT 08/30/2011 5:50 PM CARE ATTENDANT Shelly Ivana Felipewendie CNM CHEMISTRY ORDERABLES [facility] Reciclata [facility] CLBROOKLYN# [id number] [address] [place] [address] * CBC WITH DIFFERENTIAL (08/30/2011 5:45 PM CARE ATTENDANT) WBC 8.0 4.0 - 9.8 K/uL [facility] RBC 4.39 3.90 - 4.90 M/uL [facility] HEMOGLOBIN 13.1 11.8 - 14.8 g/dL [facility] HEMATOCRIT 39.7 35.5 - 44.0 % [facility] MCV 90.4 82.0 - 99.0 fL [facility] MCH 29.8 27.2 - 32.6 pg [facility] MCHC 33.0 31.5 - 35.5 % [facility] PLATELETS 189 140 - 350 K/uL [facility] MPV 11.5 9.3 - 12.4 fL [facility] RDW 14.3 11.5 - 14.5 % [facility] RDW-STDEV 46.5 37.1 - 48.7 fL [facility] NEUTROPHILS 69 45 - 70 % [facility] LYMPHOCYTES 19 16 - 45 % [facility] MONOCYTES 11 3 - 13 % [facility] EOSINOPHILS 1 0 - 7 % [facility] BASOPHILS 0 0 - 2 % [facility] NEUTROPHIL ABSOLUTE 5.56 1.90 - 7.00 K/uL [facility] LYMPHOCYTE ABSOLUTE 1.52 0.70 - 4.50 K/uL [facility] MONOCYTE ABSOLUTE 0.84 0.10 - 1.30 K/uL [facility] EOSINOPHIL ABSOLUTE 0.08 0.00 - 0.70 K/uL [facility] BASOPHILS ABSOLUTE 0.01 0.00 - 0.20 K/uL [facility] Blood specimen (specimen) 08/30/2011 5:45 PM CARE ATTENDANT 08/30/2011 5:50 PM CARE ATTENDANT Shelly BRADYM HEMATOLOGY ORDERABLE S [facility]ATORY [facility] CLIA# [id number] [address] [place] [address] * URINE CULTURE (08/30/2011 5:33 PM CARE ATTENDANT) FINAL MICRO REPORT Polymicrobial growth present consistent with urethral russel and/or colonizing bacteria. [employer] [facility] 08/30/2011 5:33 PM CARE ATTENDANT 08/30/2011 6:43 PM CARE ATTENDANT Comment:URINE VOIDED Historical Provider MICROBIOLOGY - GENER AL ORDERABLES Performing Organization Address City/[facility]/ZIP Co de Phone Number [employer] [facility] CLIA# [id number] [address] [place] [address] * (ABNORMAL) URINALYSIS (08/30/2011 5:33 PM CARE ATTENDANT) COLOR UA Pale Yellow [employer] [facility] CLARITY UA Clear Clear [employer] [facility] SPECIFIC GRAVITY UA 1.007 1.001 - 1.035 [employer] [facility] PH UA 6.5 5.0 - 8.0 [employer] [facility] LEUKOCYTE ESTERASE UA 3+(A) Negative [employer] [facility] - . [facility] NITRITE UA Negative Negative [employer] [facility] - . [facility] PROTEIN UA Negative Negative [employer] [facility] - . [facility] GLUCOSE UA Negative Negative [employer] [facility] - . [facility] KETONES UA Negative Negative [facility] UROBILINOGEN UA <1 <=1 mg/dL [employer] [facility] LAB[facility]ATORY SERVICES - . [facility] BILIRUBIN UA Negative Negative [facility] BLOOD UA Negative Negative [facility] WBC UA 3 0 - 5 /HPF [employer] [facility] - . [facility] BACTERIA UA 1+(A) None Seen /HPF [employer] [facility] EPITHELIAL CELLS, URINE 2-5 /HPF [facility] 08/30/2011 5:33 PM CARE ATTENDANT 08/30/2011 5:51 PM CARE ATTENDANT Comment:URINE VOIDED Historical Provider URINE ORDERABLES [employer] [facility] CLIA# [id number] [address] [place] [place] [address] * URINALYSIS WITH REFLEX CULTURE (08/30/2011 5:33 PM CARE ATTENDANT) URINE CULTURE ORDER Culture ordered [facility] Comment: Criteria for a reflex culture include one or more of the following: ??Abnormal nitrite, leukocyte esterase, WBCs or RBCs. ??Lack of qualifying criteria does not exclude the possiblity of a urinary tract infection. ??Dilute urine, drug interference, etc. may decrease the sensitivity of the criteria analytes. Urine, clean catch 08/30/2011 5:33 PM CARE ATTENDANT 08/30/2011 5:51 PM CARE ATTENDANT Comment:URINE VOIDED Shelly Luong CNM URINE ORDERABLES [facility] CLIA# [id number] [address] [facility] [place] [address] documented in this encounter Visit Diagnoses Not on filedocumented in this encounter Active and Recently Administered Medications Times are shown in CARE ATTENDANT. Scheduled Medication Order 09/02/2011 09/03/2011 09/04/2011 docusate sodium (COLACE) capsule 100 mg 100 mg, Oral, TWO TIMES DAILY, First dose on Mon08/31/11 at 2100, Until Discontinued, Routine 0954 (Given - Provider: Niki Grover RN)2205 (Given - Provider: Xuan Donohue RN) 0927 (Given - Provider: Phuong Kern RN)2304 (Given - Provider: Phuong Ortega, ALEXA)2305 (Given - Provider: Phuong Ortega, ALEXA) 0910 (Given - Provider: Phuong Kern, ALEXA) ferrous sulfate (FEOSOL) tablet 325 mg (CANCELED) 325 mg, Oral, DAILY, First dose on Mon08/31/11 at 1600, Until Discontinued, Routine 0954 (Given - Provider: Niki Grover RN) 0927 (Given - Provider: Phuong Kern, ALEXA) 0910 (Given - Provider: Phuong Kern RN) ketorolac (TORADOL) injection 30 mg () 30 mg, IV, EVERY 6 HOURS, 8 doses, First dose on Mon08/31/11 at 1230, Last dose on Mon09/02/11 at 0600, Routine, (OB POST-OP PAIN SERVICE) 0013 (Given - Provider: Tori Cruz RN)0452 (Given - Provider: Tori Cruz RN)0600 (Canceled Entry - Provider: Tori Cruz RN) vit-iron fumarate-fa (PILLO ) 28-0.8 mg per tablet 1 Tab (CANCELED) 1 Tablet, Oral, DAILY, First dose on Mon08/31/11 at 1700, Until Discontinued, Routine 0954 (Given - Provider: Niki Grover, ALEXA) 0927 (Given - Provider: Phuong Kern, ALEXA) 0910 (Given - Provider: Phuong Kern RN) sodium chloride 0.9 % flush injection 3 mL (CANCELED) 3 mL, IV, EVERY 8 HOURS, First dose on Mon09/01/11 at 0700, Until Discontinued, Routine 0453 (Given - Provider: Tori Cruz RN)1300 (Not Given - Provider: Niki Grover RN - Reason: Route not available)2100 (Not Given - Provider: Xuan Donohue RN - Reason: Clarify-Route) Continuous Medication Order 09/02/2011 09/03/2011 09/04/2011 meperidine (PF) 1,000 mg in sodium chloride 0.9 % 490 mL epidural 500 mL, Epidural, at 10 mL/hr, CONTINUOUS, Starting on Mon08/31/11 at 1230, Until Mon09/02/11 at 1229, (OB POST-OP PAIN SERVICE) [id number] oxytocin in lactated ringers (PITOCIN) 20 unit/1,000 mL infusion Soln IV, at 125 mL/hr, CONTINUOUS, Starting on Mon08/31/11 at 1230, Until Mon08/31/11 at 1629, Routine, (OB ANESTHESIA ORDER) oxytocin in lactated ringers (PITOCIN) 20 unit/1,000 mL infusion Soln IV, at 125 mL/hr, CONTINUOUS, Starting on Mon08/31/11 at 1545, Until Mon09/01/11 at 0744, Routine PRN Medication Order 09/02/2011 09/03/2011 09/04/2011 ibuprofen (MOTRIN) tablet 600 mg 600 mg, Oral, EVERY 6 HOURS PRN, Starting on Mon09/02/11 at 1200, Until 09/04/11 at 2052, Pain, Routine, When OK with anesthesia. 1146 (Given - Provider: Niki Grover RN)1800 (Given - Provider: Niki Grover RN) 0036 (Given - Provider: Xuan Donohue RN)0609 (Given - Provider: Xuan Donohue RN)1230 (Given - Provider: Phuong Kern RN)1858 (Given - Provider: Phuong Ortega, ALEXA) 0021 (Given - Provider: Laureen Garnica, ALEXA)0724 (Given - Provider: Laureen Garnica RN)1326 (Given - Provider: Phuong Kern RN) oxyCODONE-acetaminophe n (PERCOCET) 10-325 mg per tablet 1 Tab 1 Tablet, Oral, EVERY 4 HOURS PRN, Starting on Mon09/02/11 at 1300, Until 09/04/11 at 2053, Pain, Severe, For Pain Scale 7-10, Routine, When epidural is discontinued. 0955 (Given - Provider: Niki Grover RN)1412 (Given - Provider: Niki Grover RN)1801 (Given - Provider: Niki Grover RN)2205 (Given - Provider: Xuan Donohue RN) 0202 (Given - Provider: Xuan Donohue RN)0609 (Given - Provider: Xuan Donohue RN)1023 (Given - Provider: Phuong Kern RN)1439 (Given - Provider: Phuong Kern RN)1858 (Given - Provider: Phuong Ortega RN)2304 (Given - Provider: Phuong Ortega RN) 0311 (Given - Provider: Laureen Garnica RN)0724 (Given - Provider: Laureen Garnica RN)1138 (Given - Provider: Phoung Kern RN)1540 (Given - Provider: Phuong Kern, ALEXA) simethicone (MYLICON) tablet 80 mg (CANCELED) 80 mg, Oral, EVERY 6 HOURS PRN, Starting on Mon08/31/11 at 1542, Until 09/04/11 at 2053, Gas, Routine 0954 (Given - Provider: Niki Grover, ALEXA)1801 (Given - Provider: Niki Grover RN) 0927 (Given - Provider: Phuong Kern, ALEXA) 0910 (Given - Provider: Phuong Kern, ALEXA) documented in this encounter Care Teams Aviation Mechanic Relationship Specialty Start Date End Date Annalisa Christopher MD [address] [facility] [address] [place] [address] PCP - General 07/07/08 documented as of this encounter
--- OUTSIDE RECORDS SUMMARY | 2024-10-06 18:15 | XMS_ITS | Encounter Summary ---
Author Organization [facility] Address [address] [place] [address] Care Team Providers Care Global Clinical Leader Name Role Phone Annalisa Christopher MD Primary Care Provider [phone] Reason for Visit * Reason Comments Ultrasound Encounter Details Date Type Department Care Team (Late st Contact Info) Description 11/23/2011 9:00 AM [facility] PHYSICIAN Office Visit [facility] CORPORATE TREASURY ANALYST - Medical [place] [address] [facility] [address] [id number] Griselda Alvarez IUD surveillance (Primary Dx) Social History Tobacco Use Types [...] as of this encounter Progress Notes * Ultrasound - 11/23/2011 10:09 AM CST Patient seen in office today and Ultrasound exam performed. PHYSICIAN documented in this encounter Plan of Treatment Upcoming Encounters Date Type Department Care Team (Late Contact Info) Description 04/25/2025 8:20 AM CDT Office Visit [facility] Primary Care - [facility] [address] [facility] [address] [place] [address] Annalisa Christopher MD [address] [place] [address] [address] [place] [address] documented as of this encounter Procedures Procedure Name Priority Date/Time Associated Diagnosis Comments US PELVIC TRANSVAGINAL Routine 11/23/2011 IUD surveillance documented in this encounter Results * US PELVIC TRANSVAGINAL (11/23/2011) Anatomical Region Laterality Modality Pelvis Other Impressions 11/23/2011 Fabiana Pryor is a 36 y.o. female Presents for USN to evaluate IUD placement. Today's USN reveals a/an anteverted uterus. ??Endometrium measures 20.24 mm. The IUD appears centrally placed within the endometrium which appears thick and complex. There are no uterine nodules identified. ??The left ovary appears normal. ??The right ovary appears normal. Free fluid IS seen in the cul-de-sac. ??Clinical correlation is recommended. Douglas Patricio MD US ORDERABLES documented in this encounter Visit Diagnoses Diagnosis Surveillance of previously prescribed intrauterine contraceptive device- Primary documented in this encounter Care Teams Global Clinical Leader Relationship Specialty Start Date End Date Annalisa Christopher MD [address] [place] [address] PCP - General 07/07/08 documented as of this encounter
--- OUTSIDE RECORDS SUMMARY | 2024-10-06 18:15 | XMS_ITS | Encounter Summary ---
Author Organization [facility] Address [address] [place] [address] Care Team Providers Care Room Attendants Name Role Phone Annalisa Christopher MD Primary Care Provider [phone] Reason for Visit * Reason Onset Date Comments Vaginal Bleeding 11/30/2011 Encounter Details Date Type Department Care Team (Late Contact Info) Description 11/30/2011 Telephone [facility] GAS DISTRIBUTION SUPERVISOR - [address] [address] Douglas Patricio MD [address] [place] [address] [place] [phone] Vaginal Bleeding Social History Tobacco Use Types Packs/Day Years [...] * Telephone Encounter - Emely Adams - 11/30/2011 9:14 AM CST Pt states her first cycle after delivery and IUD placement is very heavy. Will try Estrogen for 1 week. AB NEY BUILDER documented in this encounter Plan of Treatment Upcoming Encounters Date Type Department Care Team (Late st Contact Info) Description 04/25/2025 8:20 AM CDT Office Visit [facility] Primary Care - [facility] [address] [place] [address] Annalisa Christopher MD [address] [place] [address] documented as of this encounter Visit Diagnoses Not on filedocumented in this encounter Care Teams Room Attendants Relationship Specialty Start Date End Date Annalisa Christopher MD [address] [place] [address] PCP - General 07/07/08 documented as of this encounter
--- OUTSIDE RECORDS SUMMARY | 2024-10-06 18:15 | XMS_ITS | Encounter Summary ---
Author Organization [facility] Address [address] [place] [address] Care Team Providers Care Property Portfolio Officer Name Role Phone Annalisa Christopher MD Primary Care Provider [phone] Encounter Details Date Type Department Care Team (Late st Contact Info) Description 09/24/2013 Orders Only [facility] [address] [facility] [address] [place] [address] Mery Villanueva, ACETYLENE CYLINDER [facility] [address] [facility] [address] [place] [address] Malaise and fatigue (Primary Dx); Elevated liver enzymes; Epigastric abdominal pain Social History Tobacco Use Types Packs/Day [...] 04/25/2025 8:20 AM CDT Office Visit [facility] [address] [facility] [address] [place] [address] Annalisa Christopher MD [address] [place] [address] [address] [place] [address] documented as of this encounter Results * ACUTE HEPATITIS PANEL (10/05/2013 9:28 AM SHAREPOINT ADMINISTRATOR) COMMENT See Additional Orderables [facility] LABORATORY SERVICES [facility] Blood specimen (specimen) 10/05/2013 9:28 AM SHAREPOINT ADMINISTRATOR 10/05/2013 9:34 AM SHAREPOINT ADMINISTRATOR Mery Villanueva ACETYLENE CYLINDER PACKING MIXER-BC CHEMISTRY ORDERA BLES Performing Organization Address City/[facility]/ZIP Co de Phone Number [facility] CLIA# [id number] [address] [facility] [place] [address] * GGT (10/05/2013 9:28 AM SHAREPOINT ADMINISTRATOR) GGT 36 5 - 36 U/L [facility] LAB ORATORY SERVICES [facility] Blood specimen (specimen) 10/05/2013 9:28 AM SHAREPOINT ADMINISTRATOR 10/05/2013 9:35 AM SHAREPOINT ADMINISTRATOR Mery Villanueva ACETYLENE CYLINDER PACKING MIXER- CHEMISTRY ORDERA BLES Performing Organization Address City/[facility] Co de Phone Number [employer] LABORATORY SERVICES [facility] CLIA# [id number] [address] [place] [address] * COMPREHENSIVE METABOLIC PANEL (10/05/2013 9:28 AM SHAREPOINT ADMINISTRATOR) SODIUM 141 135 - 145 mmol/L [facility] [employer] LABORATORY SERVICES - . [facility] POTASSIUM 4.1 3.5 - 4.9 mmol/L [facility] LABORATORY SERVICES - . [facility] CHLORIDE 108 96 - 108 mmol/L [facility] LABORATORY SERVICES - . [facility] CO2 22 22 - 30 mmol/L [facility] LABORATORY SERVICES - . [facility] CALCIUM 8.9 8.6 - 10.2 mg/dL [facility] - . [facility] BUN 13 6 - 20 mg/dL [facility] LABORATORY SERVICES - . [facility] CREATININE 0.73 0.51 - 0.95 mg/dL [facility] LABORATORY SERVICES - . [facility] GLUCOSE 99 65 - 99 mg/dL [facility] LABORATORY SERVICES - . [facility] TOTAL PROTEIN 7.4 6.3 - 8.6 g/dL [facility] LABORATORY SERVICES - [facility] ALBUMIN 4.5 3.4 - 4.8 g/dL [facility] LABORATORY [facility] - [facility] BILIRUBIN TOTAL 0.4 0.2 - 1.0 mg/dL [facility] LABORATORY [facility] - [facility] ALKALINE PHOSPHATASE 76 35 - 104 U/L [facility] LABORATORY [facility] - [facility] AST 20 12 - 32 U/L [facility] LABORATORY [facility] ALT 29 0 - 31 U/L [facility] LABORATORY [facility] GFR, >60 >=60 mL/min/1. 7 sq meter [facility] LABORATORY [facility] - [facility] GFR >60 >=60 mL/min/1. 7 sq meter [facility] LABORATORY [facility] - [facility] Comment: GFR is calculated using the IDMS-Traceable Modification of Diet in Renal Disease (MDRD) Study formula and is only valid for patients 18 years or older. Further interpretative information is available in the Laboratory Services Policy Manual on the [facility] Intranet at: [email or web address]-intranet.[facility]/ Blood specimen (specimen) 10/05/2013 9:28 AM SHAREPOINT ADMINISTRATOR 10/05/2013 9:35 AM SHAREPOINT ADMINISTRATOR Mery Villanueva ACETYLENE CYLINDER PACKING MIXER- CHEMISTRY ORDERA BLES [facility]# [id number] [address] [facility] [address] [place] [address] documented in this encounter Visit Diagnoses Diagnosis Malaise and fatigue- Primary Other malaise and fatigue Elevated liver enzymes Nonspecific elevation of levels of transaminase or lactic acid dehydrogenase (LDH) Epigastric abdominal pain Abdominal pain, epigastric documented in this encounter Care Teams Property Portfolio Officer Relationship Specialty Start Date End Date Annalisa Christopher MD [address] [place] [address] PCP - General 07/07/08 documented as of this encounter
--- OUTSIDE RECORDS SUMMARY | 2024-10-06 18:15 | XMS_ITS | Encounter Summary ---
Author Organization [facility] Address [address] [place] [address] Care Team Providers Care Inorganic Chemist Name Role Phone Annalisa Christopher MD Primary Care Provider [phone] Encounter Details Date Type Department Care Team (Late st Contact Info) Description 06/23/2014 Abstract [facility] - [address] [place] [address] Annalisa Christopher MD [address] [place] [address] [address] [place] [address] Social History Tobacco Use Types [...] Visit [facility] - [facility] [address] [place] [address] [address] [place] [address] Annalisa Christopher MD [address] [place] [address] [address] [place] [address] documented as of this encounter Visit Diagnoses Not on filedocumented in this encounter Care Teams Inorganic Chemist Relationship Specialty Start Date End Date Annalisa Christopher MD [address] [facility] [address] [place] [address] PCP - General 07/07/08 documented as of this encounter
--- OUTSIDE RECORDS SUMMARY | 2024-10-06 18:15 | XMS_ITS | Encounter Summary ---
Author Organization [facility] Address [address] [place] [address] Care Team Providers Care Process Improvement Engineer Name Role Phone Annalisa Christopher MD Primary Care Provider [phone] Encounter Details Date Type Department Care Team (Latest Contact Info) Description 09/20/2013 1:41 PM SECURITY MESSENGER - 09/20/2013 11:59 PM [facility] Hospital Encounter [facility] Laboratory Support Services [address] [place] [address] Mery Villanueva F, [facility] [address] [facility] [address] [place] [address] Routine general medical examination at a health care facility Discharge Disposition: Home or Self Care Social [...] yrs) 52 mg IUD by Intrauterine route. azithromycin (ZITHROMAX Z-CHRIS) 250 mg tablet Take 2 tabs the first day and 1 tab days 2-5 1 Package 0 09/20/2013 05/22/2014 fluticasone (FLONASE) 50 mcg/spray [place], SuspensionIndications :Allergic rhinitis Administer 2 Sprays in each nostril daily. 2 Gram 11 08/05/2013 09/20/2014 montelukast (SINGULAIR) 10 mg Oral tabletIndications:Ext rinsic asthma, unspecified Take 1 Tab by mouth daily at bedtime. 30 Tab 3 06/24/2013 11/16/2013 diazepam (VALIUM) 5 mg Oral tablet Take 1 Tab by mouth 1 time daily as needed for Anxiety. 30 Tab 0 12/09/2011 05/27/2016 documented as of this encounter Plan of Treatment Upcoming Encounters Date Type Department Care Team (Late st Contact Info) Description 04/25/2025 8:20 AM CDT Office Visit [facility] Primary Care - [facility] [address] [facility] [address] [place] [address] Annalisa Christopher MD [address] [facility] [address] [place] [address] documented as of this encounter Procedures Procedure Name Priority Date/Time Associated Diagnosis Comments TSH REFLEXIVE Routine 09/20/2013 1:41 PM SECURITY MESSENGER Fatigue Weight gain CBC WITH DIFFERENTIAL Routine 09/20/2013 1:41 PM SECURITY MESSENGER Physical exam, annual Fatigue Weight gain VITAMIN D 25 HYDROXY Routine 09/20/2013 1:41 PM SECURITY MESSENGER Fatigue LIPID PANEL Routine 09/20/2013 1:41 PM SECURITY MESSENGER Screening, lipid COMPREHENSIVE METABOLIC PANEL Routine 09/20/2013 1:41 PM SECURITY MESSENGER Physical exam, annual Fatigue Weight gain documented in this encounter Results * (ABNORMAL) LIPID PANEL (09/20/2013 1:41 PM SECURITY MESSENGER) [facility] Signature CHOLESTEROL 199 100 - 199 mg/dL [facility] LABORATORY [facility] TRIGLYCERIDE 105 10 - 149 mg/dL [facility] HDL 49 40 - 59 mg/dL [facility] CHOL/HDL RATIO 4.1 2.0 - 5.0 [facility] LDL CALCULATED 129(H) <=99 mg/dL [facility] LIPID PANEL COMMENT See Below [facility] Comment: The adult ATP and pediatric NCEP classifications for lipids are available in the Laboratory Services Policy Manual on the [facility] Intranet at: [email or web address]-intranet.[facility]/ Blood specimen (specimen) 09/20/2013 1:41 PM SECURITY MESSENGER 09/20/2013 2:24 PM SECURITY MESSENGER Mery Villanueva [facility] CHEMISTRY ORDERA BLES Performing Organization Address [facility] Co de Phone Number [facility] CLIA# [id number] [address] [place] [address] * VITAMIN D 25 HYDROXY (09/20/2013 1:41 PM SECURITY MESSENGER) VITAMIN D, 25 OH, TOTAL 25 ng/mL [facility] Comment: Therapy is based on measurement of Total 25-OHD, with levels <20 ng/mL indicative of Vitamin D deficiency, while levels between 20 ng/mL and 30 ng/mL suggest insufficiency. ??Optimal levels are > or = 30 ng/mL. Similarly, the [place] National Kidney Foundation considers levels <30 ng/mL to be insufficient or deficient. ??The preferred level for Vitamin D (25-OH) by many experts is now recommended to be >/= 30 ng/mL. Blood specimen (specimen) 09/20/2013 1:41 PM SECURITY MESSENGER 09/20/2013 2:24 PM SECURITY MESSENGER Mery Villanueva [facility] CHEMISTRY ORDERA BLES Performing Organization Address [facility] Co de Phone Number [facility] CLIA# [id number] [address] [place] [address] * TSH REFLEXIVE (09/20/2013 1:41 PM SECURITY MESSENGER) TSH 0.63 0.27 - 4.20 uU/mL [facility] Blood specimen (specimen) 09/20/2013 1:41 PM SECURITY MESSENGER 09/20/2013 2:24 PM SECURITY MESSENGER Mery Villanueva JUAN- CHEMISTRY ORDERA BLES [facility] LABORATORY SERVICES [facility] JENNIFER# [id number] [address] [facility] [place] [place], [place] [address] * (ABNORMAL) COMPREHENSIVE METABOLIC PANEL (09/20/2013 1:41 PM SECURITY MESSENGER) SODIUM 137 135 - 145 mmol/L [facility] LABORATORY SERVICES - [facility] POTASSIUM 4.0 3.5 - 4.9 mmol/L [facility] CHLORIDE 105 96 - 108 mmol/L [facility] CO2 23 22 - 30 mmol/L [facility] CALCIUM 9.2 8.6 - 10.2 mg/dL [facility] BUN 9 6 - 20 mg/dL [facility] CREATININE 0.63 0.51 - 0.95 mg/dL [facility] GLUCOSE 97 65 - 99 mg/dL [facility] TOTAL PROTEIN 6.8 6.3 - 8.6 g/dL [facility] LABORATORY [facility]. [facility] ALBUMIN 4.2 3.4 - 4.8 g/dL [facility] BILIRUBIN TOTAL 0.3 0.2 - 1.0 mg/dL [facility] ALKALINE PHOSPHATASE 107(H) 35 - 104 U/L [facility] AST 53(H) 12 - 32 U/L [facility] ALT 182(H) 0 - 31 U/L [facility] GFR, >60 >=60 mL/min/1. 7 sq meter [facility] GFR >60 >=60 mL/min/1. 7 sq meter [facility] Comment: GFR is calculated using the IDMS-Traceable Modification of Diet in Renal Disease (MDRD) Study formula and is only valid for patients 18 years or older. Further interpretative information is available in the Laboratory Services Policy Manual on the [facility] Intranet at: [email or web address].[facility]/ Blood specimen (specimen) 09/20/2013 1:41 PM SECURITY MESSENGER 09/20/2013 2:24 PM SECURITY MESSENGER Mery Villanueva EMOTIONAL SUPPORT TEACHER- CHEMISTRY ORDERA BLES [facility] LABORATORY SERVICES [facility] CLIA# [id number] [address] [facility] [address] [facility] [place] [address] * (ABNORMAL) CBC WITH DIFFERENTIAL (09/20/2013 1:41 PM SECURITY MESSENGER) WBC 3.6(L) 4.0 - 9.8 K/uL [employer] LABORATORY SERVICES [facility] RBC 4.61 3.90 - 4.90 M/uL [employer] LABORATORY SERVICES [facility] HEMOGLOBIN 13.9 11.8 - 14.8 g/dL [employer] LABORATORY SERVICES [facility] HEMATOCRIT 41.9 35.5 - 44.0 % [employer] LABORATORY SERVICES [facility] MCV 90.9 82.0 - 99.0 fL [employer] LABORATORY SERVICES - [facility] MCH 30.2 27.2 - 32.6 pg [facility] MCHC 33.2 31.5 - 35.5 % [facility] - [facility] PLATELETS 198 140 - 350 K/uL [employer] LABORATORY SERVICES [facility] MPV 10.6 9.3 - 12.4 fL [employer] LABORATORY SERVICES [facility] RDW 13.1 11.5 - 14.5 % [employer] LABORATORY SERVICES [facility] RDW-STDEV 43.2 37.1 - 48.7 fL [employer] LABORATORY SERVICES [facility] NEUTROPHILS 50 45 - 70 % [facility] - . [facility] LYMPHOCYTES 34 16 - 45 % [facility] - . [facility] MONOCYTES 15(H) 3 - 13 % [facility] - . [facility] EOSINOPHILS 2 0 - 7 % [facility] - . [facility] BASOPHILS 0 0 - 2 % [facility] - . [facility] NEUTROPHIL ABSOLUTE 1.77(L) 1.90 - 7.00 K/uL [employer] LABORATORY SERVICES [facility] LYMPHOCYTE ABSOLUTE 1.19 0.70 - 4.50 K/uL [facility] LABORATORY SERVICES - [facility] MONOCYTE ABSOLUTE 0.52 0.10 - 1.30 K/uL [facility] LABORATORY SERVICES - [facility] EOSINOPHIL ABSOLUTE 0.06 0.00 - 0.70 K/uL [facility] LABORATORY SERVICES - [facility] BASOPHILS ABSOLUTE 0.01 0.00 - 0.20 K/uL [facility] SERVICES - [facility] Blood specimen (specimen) 09/20/2013 1:41 PM SECURITY MESSENGER 09/20/2013 2:24 PM SECURITY MESSENGER Mery Villanueva EMOTIONAL SUPPORT TEACHER- HEMATOLOGY ORDER ONUR [facility] LABORATORY SERVICES - [facility] CLIA# [id number] [address] [place] [address] documented in this encounter Visit Diagnoses Diagnosis Physical exam, annual Routine general medical examination at a health care facility Fatigue Other malaise and fatigue Weight gain Abnormal weight gain Screening, lipid Screening for lipoid disorders documented in this encounter Care Teams Process Improvement Engineer Relationship Specialty Start Date End Date Annalisa Christopher MD [address] [place] [address] PCP - General 07/07/08 documented as of this encounter
--- OUTSIDE RECORDS SUMMARY | 2024-10-06 18:15 | XMS_ITS | Encounter Summary ---
Author Organization [facility] Address [address] [place] [address] Care Team Providers Care Phys Therapist Name Role Phone Annalisa Christopher MD Primary Care Provider [phone] Reason for Visit * Reason Onset Date Comments Results 02/02/2011 Encounter Details Date Type Department Care Team (Late st Contact Info) Description 02/02/2011 Telephone [facility] RETAIL BANKER - Medical [address] [address] Douglas Patricio MD [address] [place] [phone] Results Social History Tobacco Use Types Packs/Day [...] encounter Miscellaneous Notes * Telephone Encounter - Douglas Patricio MD - 02/02/2011 6:06 PM CDT Left detailed results on work VM per pt request, advised of normal hormones, that she can schedule US anytime. * Telephone Encounter - Diane Rosales - 02/02/2011 10:26 AM CDT Patient calling for test results, states you asked her to call you--verified callback number. Patient states is secure voice mail if she is unavailable, ok to leave a detailed message documented in this encounter Plan of Treatment Upcoming Encounters Date Type Department Care Team (Late st Contact Info) Description 04/25/2025 8:20 AM CDT Office Visit [facility] Primary Care - [facility] [address] [place] [address] Annalisa Christopher MD [address] [place] [address] documented as of this encounter Visit Diagnoses Not on filedocumented in this encounter Care Teams Phys Therapist Relationship Specialty Start Date End Date Annalisa Christopher MD [address] [place] [address] PCP - General 07/07/08 documented as of this encounter
--- OUTSIDE RECORDS SUMMARY | 2024-10-06 18:15 | XMS_ITS | Encounter Summary ---
Author Organization [facility] Address [address] [place] [address] Care Team Providers Care Consumer Relations Specialist Name Role Phone Annalisa Christopher MD Primary Care Provider [phone] Reason for Visit * Outpatient Services (Routine) - Closed Specialty Diagnoses / Procedures Referred By Contac t Referred To Contact Ultrasound Diagnoses Malaise and fatigue Elevated liver enzymes Epigastric abdominal pain Procedures US ABDOMEN COMPLETE Mery Villanueva, SPOON MAKER- [address] [place] [address] Referral ID Status Reason Start Date Expiration Date V isits Requested Visits Authorized [id number] Closed [facility] 09/24/2013 10/25/2014 1 1 Encounter Details Date Type Department Care Team (Latest Contact Info) Description 10/05/2013 8:49 AM COLLECTION SPECIALIST - 10/05/2013 11:59 PM [facility] Hospital Encounter [facility] Ultrasound [place] [address] [place] [phone] Mery Villanueva, SPOON MAKER-BC [address] [place] [address] Discharge Disposition: Home or Self [...] 0 09/20/2013 05/22/2014 fluticasone (FLONASE) 50 mcg/spray [place], SuspensionIndications :Allergic rhinitis Administer 2 Sprays in [...] 8:20 AM CDT Office Visit [facility] Care [address] [place] [address] Annalisa Christopher MD [address] [place] [address] [place] [address] documented as of this encounter Procedures Procedure Name Priority Date/Time Associated Diagnosis Comments US ABDOMEN LIMITED Routine 10/05/2013 9: 15 AM COLLECTION SPECIALIST Malaise and fatigue Elevated liver enzymes Epigastric abdominal pain documented in this encounter Results * US ABDOMEN LIMITED (10/05/2013 9:15 AM COLLECTION SPECIALIST) Anatomical Region Laterality Modality Abdomen Ultrasound 10/05/2013 9:06 AM COLLECTION SPECIALIST Impressions 10/07/2013 7:18 AM COLLECTION SPECIALIST IMPRESSION: Normal ultrasound of the right upper quadrant. Dictated from [facility]. Narrative 10/07/2013 7:18 AM COLLECTION SPECIALIST US ABDOMEN LIMITED. ?? Oct 05, 2013 09:06:09 AM INDICATION: Malaise and fatigue, elevated liver enzymes, epigastric pain. TECHNIQUE: Real-time hernandez scale ultrasound imaging of the right upper quadrant was performed and supplemented with color Doppler imaging as needed. COMPARISON: None FINDINGS: Liver: The liver is normal in echogenicity with no concerning focal lesions identified. The portal venous and hepatic venous systems are unremarkable. Pancreas: Poor visualization secondary to bowel gas. Right Kidney: Normal in echogenicity with no focal lesions, hydronephrosis, stones or surrounding fluid collections identified. ?? Gallbladder: Unremarkable in appearance with no stones, wall thickening or surrounding fluid collections visualized. Biliary: The common bile duct is normal in size measuring 3 mm. Vasculature: Unremarkable Procedure Note Duarn Smith MD - 10/07/2013 US ABDOMEN LIMITED. Oct 05, 2013 09:06:09 AM INDICATION: Malaise and fatigue, elevated liver enzymes, epigastric pain. TECHNIQUE: Real-time hernandez scale ultrasound imaging of the right upper quadrant was performed and supplemented with color Doppler imaging as needed. COMPARISON: None FINDINGS: Liver: The liver is normal in echogenicity with no concerning focal lesions identified. The portal venous and hepatic venous systems are unremarkable. Pancreas: Poor visualization secondary to bowel gas. Right Kidney: Normal in echogenicity with no focal lesions, hydronephrosis, stones or surrounding fluid collections identified. Gallbladder: Unremarkable in appearance with no stones, wall thickening or surrounding fluid collections visualized. Biliary: The common bile duct is normal in size measuring 3 mm. Vasculature: Unremarkable IMPRESSION IMPRESSION: Normal ultrasound of the right upper quadrant. Dictated from [facility]. Mery Villanueva [facility] US ORDERABLES documented in this encounter Visit Diagnoses Diagnosis Malaise and fatigue Other malaise and fatigue Elevated liver enzymes Nonspecific elevation of levels of transaminase or lactic acid dehydrogenase (LDH) Epigastric abdominal pain Abdominal pain, epigastric documented in this encounter Care Teams Consumer Relations Specialist Relationship Specialty Start Date End Date Annalisa Christopher MD [address] [place] [address] PCP - General 07/07/08 documented as of this encounter
--- OUTSIDE RECORDS SUMMARY | 2024-10-06 18:15 | XMS_ITS | Encounter Summary ---
Author Organization [facility] Address [address] [place] [address] Care Team Providers Care Dowel Inserting Machine Operator Name Role Phone Annalisa Christopher MD Primary Care Provider [phone] Reason for Visit * Reason Comments Routine Visit Encounter Details Date Type Department Care Team (Latest Contact Info) Description 03/31/2011 3:15 PM CDT visit [facility] REFRIGERATION TECH - [address] [place] [address] Sisi Rand NP [address] [address] [place] [phone] Supervision of other normal (Primary Dx) Social History Tobacco Use Types [...] Sign Reading Time Taken Comments Blood Pressure 120/68 03/31/2011 2:34 PM CDT Pulse - - Temperature - - Respiratory Rate - - Oxygen Saturation - - Inhaled Oxygen Concentration - - Weight 83.9 kg (185 lb) 03/31/2011 2:34 PM CDT Height 170.2 cm (5' 7 ) 03/31/2011 2:34 PM CDT Body Mass Index 28.98 03/31/2011 2:34 PM CDT documented in this encounter Progress Notes * Sisi Rand NP - 03/31/2011 3:39 PM CDT Feels well. No lof. Had brown spotting for one day over the weekend nothing since. Appetite good, PNV are ok. Has US scheduled for next month. Declines quad screen documented in this encounter Plan of Treatment Upcoming Encounters Date Type Department Care Team (Late st Contact Info) Description 04/25/2025 8:20 AM CDT Office Visit [facility] Primary Care - [facility] [address] [place] [address] Annalisa Christopher MD [address] [place] [address] documented as of this encounter Visit Diagnoses Diagnosis Supervision of other normal - Primary documented in this encounter Care Teams Dowel Inserting Machine Operator Relationship Specialty Start Date End Date Annalisa Christopher MD [address] [place] [address] PCP - General 07/07/08 documented as of this encounter
--- OUTSIDE RECORDS SUMMARY | 2024-10-06 18:15 | XMS_ITS | Encounter Summary ---
Author Organization [facility] Address [address] [place] [address] Care Team Providers Care Corporate Treasurer Name Role Phone Annalisa Christopher MD Primary Care Provider [phone] Reason for Visit * Reason Comments Well Woman Exam Test Positive Encounter Details Date Type Department Care Team (Latest Contact Info) Description 02/01/2011 11:30 AM CDT Office Visit [facility] AUDIOVISUAL LIBRARIAN - [address] [address] Douglas Patricio MD [address] [place] [address] [place] [phone] Routine gynecological examination; Screening examination for venereal disease; examination or test, positive result; Vaginal yeast infection Social History Tobacco Use Types Packs/Day Years [...] Sign Reading Time Taken Comments Blood Pressure 128/80 02/01/2011 11:34 AM CDT Pulse - - Temperature - - Respiratory Rate - - Oxygen Saturation - - Inhaled Oxygen Concentration - - Weight 80.3 kg (177 lb) 02/01/2011 11:34 AM CDT Height 170.2 cm (5' 7 ) 02/01/2011 11:34 AM CDT Body Mass Index 27.72 02/01/2011 11:34 AM CDT documented in this encounter Progress Notes * Douglas Patricio MD - 02/20/2011 2:53 PM CDT SUBJECTIVE Fabiana Pryor is a 35 y.o. female presenting for annual Well Woman exam. Last pap smear: 2009 Smoker: non Patient's last menstrual period was 12/13/2010. Coke Crane Operator complaints: ; prior @ term, demise, cord accident; C/S 2003; AMA History Social History ??? Marital Status: Spouse Name: N/A Number of Children: N/A ??? Years of Education: N/A Occupational History ??? Not on file. Social History Main Topics ??? Smoking status: Former Smoker Quit date: 07/09/2010 ??? Smokeless tobacco: Never Used ??? Alcohol Use: Yes ??? Drug Use: No ??? Sexually Active: Yes -- Male partner(s) LMP 06/05/10 Other Topics Concern ??? Not on file Social History Narrative ??? No narrative on file ROS Feeling well. No dyspnea or chest pain on exertion. No abdominal pain, change in bowel habits. No excessive fatigue or significant changes in weight. No urinary tract symptoms. CHAIN MAKER HAND ROS: normal menses, no abnormal bleeding, pelvic pain or discharge, no breast pain or new or enlarging lumps on self exam. OBJECTIVE BP 128/80 Ht 5' 7 (1.702 m) Wt 177 lb (80.287 kg) BMI 27.72 kg/m2 LMP 12/13/2010 General: The patient appears well, alert, and in no distress. HEENT: normocephalic. No thyromegaly palpated. Resp: Lungs are clear to auscultation bilaterally. CV: regular rate and rhythm, no murmurs auscultated Abdomen: soft without tenderness, guarding, mass or organomegaly. Extremities: no edema, nontender. BREAST EXAM: breasts appear normal, no suspicious masses, no skin or nipple changes or axillary nodes PELVIC EXAM: normal external genitalia, vulva, vagina, cervix, uterus and adnexa ASSESSMENT well woman New PLAN Orders Placed This Encounter ??? Cerv/vag cytopath, surepath w/rflx hpv ??? Chlamydia and gc, pap vial ??? Hcg quantitative, blood ??? Progesterone ??? Hcg quantitative, blood ??? Poc , urine ??? DISCONTD: Fluconazole (diflucan) 150 mg oral tablet pap smear counseled on breast self exam return for US, get labs Prior CS AMA - discussed genetic testing documented in this encounter Plan of Treatment Upcoming Encounters Date Type Department Care Team (Late st Contact Info) Description 04/25/2025 8:20 AM CDT Office Visit [facility] Primary Care - [facility] [address] [place] [address] Annalisa Christopher MD [address] [place] [address] documented as of this encounter Procedures Procedure Name Priority Date/Time Associated Diagnosis Comments POC , URINE Routine 02/01/2011 3:43 PM CDT examination or test, positive result documented in this encounter Results * (ABNORMAL) POC , URINE (02/01/2011 3:43 PM CDT) HCG QUAL URINE NEG [facility] , URINE POC POSITIVE [facility] SPECIFIC GRAVITY UA 1.001 - 1.035 [facility] HCG QUAL URINE COMMENT [facility] Urine specimen (specimen) 02/01/2011 3:43 PM CDT Douglas Patricio MD POINT OF CARE TESTIN G [facility] * PROGESTERONE (02/01/2011 12:06 PM CDT) PROGESTERONE 20.4 ng/mL [facility] Comment: Progesterone Reference Range: ?Female: Normally Menstruating Female ? Follicular Phase ?0.2 - 1.5 ??ng/mL ? Ovulation Phase ? 0.8 - 3.0 ??ng/mL ? Luteal Phase ?1.7 - 27.0 ng/mL ? Postmenopausal ?0.1 - 0.8 ??ng/mL No Pediatric Reference Range Available. Blood specimen (specimen) 02/01/2011 12:06 PM CDT 02/01/2011 1:48 PM CDT Douglas Patricio MD CHEMISTRY ORDERABLES [facility] CLIA# [id number] [address] [place] [address] * (ABNORMAL) HCG QUANTITATIVE, BLOOD (02/01/2011 12:06 PM CDT) HCG QUANT, BLOOD 137,992(H ) 0 - 5 mIU/mL [facility] Comment: Result of 5 - 25 mIU/mL is indeterminant for , repeat of test recommemded in 48 hours. Reference Range: Gestational Age: 3 ??Weeks ?5.8 - 71.2 ?mIU/mL 4 ??Weeks ?9.5 - 750 ? mIU/mL 5 ??Weeks ?217 - 6764 ?mIU/mL 6 ??Weeks ?158 - 31,795 ?mIU/mL 7 ??Weeks ? 3697 - 163,563 ?? mIU/mL 8 ??Weeks ? 32,065 - 149,571 ?? mIU/mL 9 ??Weeks ? 63,803 - 151,410 ?? mIU/mL 10 Weeks ? 46,509 - 186,977 ?? mIU/mL 12 Weeks ? 27,832 - 210,612 ?? mIU/mL 14 Weeks ? 13,950 - 62,530 ?mIU/mL 15 Weeks ? 12,039 - 70,971 ?mIU/mL 16 Weeks ? 9040 - 56,451 ?mIU/mL 17 Weeks ? 8175 - 55,868 ?mIU/mL 18 Weeks ? 8099 - 58,176 ?mIU/mL Heterophile antibodies and other interfering substances in the serum of some patients may cause a false-positive result in this assay. ??Before making a diagnosis of malignancy or etopic ,the result of this test should be confirmed with a urine HCG test and correlated with other clinical evidence. Blood specimen (specimen) 02/01/2011 12:06 PM CDT 02/01/2011 1:48 PM CDT Douglas Patricio MD CHEMISTRY ORDERABLES Performing Organization Address City/State/[facility] Co de Phone Number [facility] CLIA# [id number] [address] [place] [address] * CHLAMYDIA AND GC, PAP VIAL (02/01/2011 10:43 AM CDT) CHLAMYDIA TRACHOMATIS DNA NOT DETECTED [facility] Comment:Reference Range: Not Detected GC DNA AMPLIFICATION NOT DETECTED [facility] Comment:Reference Range: Not Detected GC AND CHLAMYDIA PROBE COMMENT See Result Comment [facility] Comment: This test was performed using the BD ProbeTec(TM) Chlamydia trachomatis and Neisseria gonorrhoeae Amplified DNA Assays. ? Lab test performed by: [employer] [facility] [address] [place] [address] NELSON FRENCH DO Endocervical 02/01/2011 10:4 3 AM CDT 02/01/2011 2:10 PM CDT Comment:ENDOCERVICAL Douglas Patricio MD BODY FLUIDS AND STOO LS COM Performing Organization Address [facility] Co de Phone Number [facility] CLIA# [id number] [address] [place] [address] * CERV/VAG CYTOPATH, SUREPATH W/RFLX HPV (02/01/2011 10:43 AM CDT) CLINICAL INFORMATION [facility] PREV PAP: 10 22 10 WNL [facility] LAST MENSTRUAL PERIOD 12 13 11 [facility] PAP INTERP Negative for intraepithelial lesion or malignancy. [facility] Coke Crane Operator Pap Comment Based on the cytology result, reflex High Risk HPV DNA testing was not performed. [facility] ADEQUACY: Satisfactory for evaluation. Endocervical/trans formation zone component present. [facility] SOURCE [employer] [facility] CYTOTECHNOLOGI ST: MMW, CT(ASCP) [facility] Comment: ? Lab test performed by: [employer] [facility] [address] [place] [phone] NELSON FRENCH DO PREV BX: Information not provided [facility] REPORT STATUS FINAL [facility] Endocervical 02/01/2011 10:4 3 AM CDT 02/01/2011 2:10 PM CDT Comment:ENDOCERVICAL Douglas Patricio MD PATHOLOGY/CYTOLOGY O RDERABLES Performing Organization Address [facility] Co de Phone Number [facility] CLIA# [id number] [address] [place] [address] documented in this encounter Visit Diagnoses Diagnosis Routine gynecological examination Screening examination for venereal disease examination or test, positive result Vaginal yeast infection Candidiasis of vulva and vagina examination or test, positive result documented in this encounter Care Teams Corporate Treasurer Relationship Specialty Start Date End Date Annalisa Christopher MD [address] [place] [address] PCP - General 07/07/08 documented as of this encounter
--- OUTSIDE RECORDS SUMMARY | 2024-10-06 18:15 | XMS_ITS | Encounter Summary ---
Author Organization [facility] Address [address] [place] [address] Care Team Providers Care Timber Management Technician Name Role Phone Annalisa Christopher MD Primary Care Provider [phone] Reason for Visit * Reason Comments IUD Insertion Mirena Test Negative Encounter Details Date Type Department Care Team (Late st Contact Info) Description 11/16/2011 11:15 AM EXERCISE SCIENCE INTERNSHIP Office Visit [facility] ACTUARIAL ANALYST - Medical [address] [address] Douglas Patricio MD [address] [place] [phone] examination or test, negative result (Primary Dx); Encounter for IUD insertion Social History Tobacco Use Types Packs/Day Years [...] Reading Time Taken Comments Blood Pressure 128/80 11/16/2011 11:21 AM EXERCISE SCIENCE INTERNSHIP Pulse - - Temperature - - Respiratory Rate - - Oxygen Saturation - - Inhaled Oxygen Concentration - - Weight 90.7 kg (200 lb) 11/16/2011 11:21 AM EXERCISE SCIENCE INTERNSHIP Height 170.2 cm (5' 7 ) 11/16/2011 11:21 AM EXERCISE SCIENCE INTERNSHIP Body Mass Index 31.32 11/16/2011 11:21 AM EXERCISE SCIENCE INTERNSHIP documented in this encounter Progress Notes * Douglas Patricio MD - 11/17/2011 2:30 PM CST See IUD insertion note [employer] documented in this encounter Procedure Notes * Douglas Patricio MD - 11/17/2011 2:29 PM CSTAssociated Order(s): INSERT INTRAUTERINE DEVICE Procedure(s): UT INSERTION INTRAUTERINE DEVICE IUD Pre-Procedure Diagnose(s): Encounter for IUD insertion Fabiana Pryor is a 36 y.o. presenting for Mirena IUD placement. The risks, benefits, and indications were discussed with the patient. I also discussed the possibility that she might experience light, moderate, or heavy bleeding during the first couple months following insertion. Irregular bleeding is quite common during this period. Informed consent was obtained. With the patient in dorsal lithotomy position, a speculum was placed and the cervix was cleansed with betadine. A tenaculum was attached to the anterior lip of the cervix and the uterus was gently sounded to 10cm. The Mirena sleeve was introduced through the cervix to the uterine fundus, and the device was deployed. The sleeve was withdrawn and the strings were cut to the appropriate length. The tenaculum was removed, and the tenaculum sites were hemostatic. The patient tolerated the procedure well. She will return in 1 week for US. [employer] SCIENCE [employer]NSHIP documented in this encounter Plan of Treatment Upcoming Encounters Date Type Department Care Team (Late st Contact Info) Description 04/25/2025 8:20 AM CDT Office Visit [facility] Care - [facility] [address] [facility] [address] [place] [address] Annalisa Christopher MD [address] [place] [address] [address] [place] [address] documented as of this encounter Procedures Procedure Name Priority Date/Time Associated Diagnosis Comments UT INSERTION INTRAUTERINE DEVICE IUD Routine 11/17/2011 2:30 PM EXERCISE SCIENCE INTERNSHIP Encounter for IUD insertion POC , URINE Routine 11/16/2011 11:18 AM EXERCISE SCIENCE INTERNSHIP examination or test, negative result documented in this encounter Results * UT INSERTION INTRAUTERINE DEVICE IUD (11/17/2011 2:30 PM EXERCISE SCIENCE INTERNSHIP) [facility] - 11/17/2011 2:30 PM EXERCISE SCIENCE INTERNSHIP Douglas Patricio MD ? 11/17/2011 ??2:30 PM Fabiana Pryor is a 36 y.o. presenting for Mirena IUD placement. The risks, benefits, and indications were discussed with the patient. ??I also discussed the possibility that she might experience light, moderate, or heavy bleeding during the first couple months following insertion. ??Irregular bleeding is quite common during this period. ??Informed consent was obtained. With the patient in dorsal lithotomy position, a speculum was placed and the cervix was cleansed with betadine. ??A tenaculum was attached to the anterior lip of the cervix and the uterus was gently sounded to 10cm. ??The Mirena sleeve was introduced through the cervix to the uterine fundus, and the device was deployed. ?? The sleeve was withdrawn and the strings were cut to the appropriate length. ??The tenaculum was removed, and the tenaculum sites were hemostatic. ??The patient tolerated the procedure well. She will return in 1 week for US. Fabiana Pryor is a 36 y.o. presenting for Mirena IUD placement. The risks, benefits, and indications were discussed with the patient. ??I also discussed the possibility that she might experience light, moderate, or heavy bleeding during the first couple months following insertion. ?? Irregular bleeding is quite common during this period. ??Informed consent was obtained. With the patient in dorsal lithotomy position, a speculum was placed and the cervix was cleansed with betadine. ??A tenaculum was attached to the anterior lip of the cervix and the uterus was gently sounded to 10cm. ??The Mirena sleeve was introduced through the cervix to the uterine fundus, and the device was deployed. ??The sleeve was withdrawn and the strings were cut to the appropriate length. ??The tenaculum was removed, and the tenaculum sites were hemostatic. ??The patient tolerated the procedure well. She will return in 1 week for US. Procedure Note Douglas Patricio MD - 11/17/2011 2:29 PM CST Fabiana Pryor is a 36 y.o. presenting for Mirena IUD placement. The risks, benefits, and indications were discussed with the patient. Ialso discussed the possibility that she might experience light, moderate,or heavy bleeding during the first couple months following insertion.Irregular bleeding is quite common during this period. Informed consentwas obtained. With the patient in dorsal lithotomy position, a speculum was placed andthe cervix was cleansed with betadine. A tenaculum was attached to theanterior lip of the cervix and the uterus was gently sounded to 10cm. TheMirena sleeve was introduced through the cervix to the uterine fundus, andthe device was deployed. The sleeve was withdrawn and the strings werecut to the appropriate length. The tenaculum was removed, and thetenaculum sites were hemostatic. The patient tolerated the procedurewell. She will return in 1 week for US. Douglas Patricio MD PROCEDURE/MINOR SURG ICAL ORDERABLES [facility] * POC , URINE (11/16/2011 11:18 AM EXERCISE SCIENCE INTERNSHIP) HCG QUAL URINE NEG [facility] , URINE POC Negative [facility] SPECIFIC GRAVITY UA 1.001 - 1.035 [facility] HCG QUAL URINE COMMENT [facility] Urine specimen (specimen) 11/16/2011 11:18 AM EXERCISE SCIENCE INTERNSHIP Douglas Patricio MD POINT OF CARE TESTIN G [facility] documented in this encounter Visit Diagnoses Diagnosis examination or test, negative result- Primary Encounter for IUD insertion Encounter for insertion of intrauterine contraceptive device documented in this encounter Care Teams Timber Management Technician Relationship Specialty Start Date End Date Annalisa Christopher MD [address] [facility] [address] [place] [address] PCP - General 07/07/08 documented as of this encounter
--- OUTSIDE RECORDS SUMMARY | 2024-10-06 18:15 | XMS_ITS | Encounter Summary ---
Author Organization [facility] Address [address] [place] [address] Care Team Providers Care Director Private Music Therapy Agency Name Role Phone Annalisa Christopher MD Primary Care Provider [phone] Reason for Visit * Reason Onset Date Comments Information 10/08/2013 Encounter Details Date Type Department Care Team (Late st Contact Info) Description 10/08/2013 Telephone [facility] Primary Care - [facility] [address] [place] [address] [address] [place] [address] Mery Villanueva APRN-GINNA [address] [facility] [address] [place] [address] Information Social History Tobacco Use Types Packs/Day Years [...] Telephone Encounter - Mery Villanueva APRN-BC - 10/08/2013 4:07 PM EVENT SALES ASSISTANT Patient phoned back today to discuss labs and symptoms. She had elevated liver enzymes which returned to normal after retesting and abd us test was normal. She is frustrated because she is tired all the time and just wants to sleep. She feels she should not be like this. 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 We discussed liver enzymes may have been elevated due to viral illness given review of all of her labs. She does not drink alcohol, very rarely will she consume an alcoholic beverage. She has history fo GI work up, upper GI in past without any findings although she cannot recall whodid this. She was evaluated by another PCP within [facility] without any findings. She would like to know what to do next: recommend GI evaluation and consider sleep apnea testing. She informs me she does not have time for this at this time and will keep us updated should she continue to have problems. She inquires about weight loss options and medications: instructed her weight watchers is a good program, may consult with revenue enforcement agent or discuss Rx medications at [facility] with Dr. Christopher. T SALES ASSISTANT documented in this encounter Plan of Treatment Upcoming Encounters Date Type Department Care Team (Late st Contact Info) Description 04/25/2025 8:20 AM CDT Office Visit [facility] Primary Care - [facility] [address] [facility] [address] [place] [address] Annalisa Christopher MD [address] [place] [address] [place] [address] documented as of this encounter Visit Diagnoses Not on filedocumented in this encounter Care Teams Director Private Music Therapy Agency Relationship Specialty Start Date End Date Annalisa Christopher MD [address] [place] [address] [place] [address] PCP - General 07/07/08 documented as of this encounter
--- OUTSIDE RECORDS SUMMARY | 2024-10-06 18:15 | XMS_ITS | Encounter Summary ---
Author Organization [facility] Address [address] [place] [address] Care Team Providers Care Hris Administrator Name Role Phone Annalisa Christopher MD Primary Care Provider [phone] Reason for Visit * Reason Onset Date Comments Information 09/24/2013 Encounter Details Date Type Department Care Team (Late st Contact Info) Description 09/24/2013 Telephone [facility] Primary Care - [facility] [address] [place] [address] Mery Villanueva APRN-BC [address] [facility] [address] [place] [address] Information Social History Tobacco Use [...] Telephone Encounter - Mery Villanueva APRN-BC - 09/24/2013 1:26 PM SALES PERFORMANCE MANAGER Patient called back: Patient does not drink alcohol ( very very rare) and had reported fatigue and a vague epigastric pain that has been ongoing for the last few years unsure of how long. Instructed her to call to schedule abdominal US and have labs repeated within the next week. S PERFORMANCE MANAGER * Telephone Encounter - Kay, Mery FJOCY - 09/24/2013 1:18 PM SALES PERFORMANCE MANAGER Left message for patient to call office regarding lab tests. Recommend appt with myself or MK for repeat blood testing and further assessment for elevated liverenzymes and she has complaint of fatigue. S PERFORMANCE MANAGER documented in this encounter Plan of Treatment Upcoming Encounters Date Type Department Care Team (Late st Contact Info) Description 04/25/2025 8:20 AM CDT Office Visit [facility] Primary Care - [facility] [address] [place] [address] Annalisa Christopher MD [address] [place] [address] documented as of this encounter Visit Diagnoses Not on filedocumented in this encounter Care Teams Hris Administrator Relationship Specialty Start Date End Date Annalisa Christopher MD [address] [place] [address] PCP - General 07/07/08 documented as of this encounter
--- OUTSIDE RECORDS SUMMARY | 2024-10-06 18:15 | XMS_ITS | Encounter Summary ---
Author Organization [facility] Address [address] [place] [address] Care Team Providers Care Assurance Manager Insurance Name Role Phone Annalisa Christopher MD Primary Care Provider [phone] Reason for Visit * Reason Comments Vaginal Bleeding since November 25 Encounter Details Date Type Department Care Team (Late st Contact Info) Description 12/13/2011 11:00 AM CDT Office Visit [facility] ERP DEVELOPER - Medical [place] [facility] [address] [facility] [address] [address] Leslie Lopez NP NO ADDRESS ON FILE Irregular menses (Primary Dx) Social History Tobacco Use Types [...] Sign Reading Time Taken Comments Blood Pressure 126/72 12/13/2011 10:58 AM CDT Pulse - - Temperature - - Respiratory Rate - - Oxygen Saturation - - Inhaled Oxygen Concentration - - Weight 90.7 kg (200 lb) 12/13/2011 10:58 AM CDT Height 170.2 cm (5' 7 ) 12/13/2011 10:58 AM CDT Body Mass Index 31.32 12/13/2011 10:58 AM CDT documented in this encounter Progress Notes * Leslie Riley NP - 12/13/2011 1:17 PM CDT Presents for vaginal bleeding, s/p Mirena IUD placement 11/16/11, bleed since placement. Took 1 weekof estrace beginning 11/30/11. Bleed slowed but now increasing. Changing small pad every few hours, not saturated, no clots, occasional minimal cramping. Has not been heavier than that. No recent interc ourse. Is mainly frustrated. O: vag mucosa: Normal with +dark blood, no clots Cervix: normal, NT, no active bleed currently, +IUD strings seen and felt Uterus: normal, NT A/P: s/p Mirena placement without difficulty, no signs of expulsion. Hemodynamically stable. D/W patient give time to adjust to new device and medication. Advised first 1- 3months bleed can be irregular. Precautions were given. Pt agrees to give more time for adjustment. documented in this encounter Plan of Treatment Upcoming Encounters Date Type Department Care Team (Late st Contact Info) Description 04/25/2025 8:20 AM CDT Office Visit [facility] Primary Care - [facility] [address] [facility] [address] [place] [address] Annalisa Christopher MD [address] [place] [address] [place] [address] documented as of this encounter Visit Diagnoses Diagnosis Irregular menses- Primary Irregular menstrual cycle documented in this encounter Care Teams Assurance Manager Insurance Relationship Specialty Start Date End Date Annalisa Christopher MD [address] [facility] [address] [place] [address] PCP - General 07/07/08 documented as of this encounter
--- OUTSIDE RECORDS SUMMARY | 2024-10-06 18:15 | XMS_ITS | Encounter Summary ---
Author Organization [facility] Address [address] [place] [address] Care Team Providers Care Peer Support Specialist Name Role Phone Annalisa Christopher MD Primary Care Provider [phone] Reason for Visit * Reason Comments Ultrasound Encounter Details Date Type Department Care Team (Late st Contact Info) Description 02/04/2011 9:10 AM CDT Office Visit [facility] SHANK SCOURER - Medical [facility] [address] [facility] [address] [address] Griselda Alvarez Establish gestational age, ultrasound (Primary Dx) Social History Tobacco Use Types [...] as of this encounter Progress Notes * Phuong Chamorro - 02/04/2011 10:36 AM CDT Patient seen in office today and Ultrasound exam performed. documented in this encounter Plan of Treatment Upcoming Encounters Date Type Department Care Team (Late st Contact Info) Description 04/25/2025 8:20 AM CDT Office Visit [facility] Primary Care - [address] [place] [address] Annalisa Christopher MD [address] [place] [address] documented as of this encounter Procedures Procedure Name Priority Date/Time Associated Diagnosis Comments US OB TRANSVAGINAL Routine 02/04/2011 Establish gestational age, ultrasound documented in this encounter Results * US OB TRANSVAGINAL (02/04/2011) Anatomical Region Laterality Modality Pelvis Other Impressions 02/04/2011 Fabiana Pryor is a 35 y.o. is here for an Ultrasound Reason for Ultrasound exam: ??Dating/viability Intrauterine : ??present Gestational Sac: present Heart Motion: 160 bpm Single fetus with CRL= 1.61 cm. Gestational age this ultrasound: 8w0d EDC by this ultrasound: 09/16/2011 Repeat ultrasound in 3 months Douglas Patricio MD US ORDERABLES documented in this encounter Visit Diagnoses Diagnosis Establish gestational age, ultrasound- Primary Encounter for routine screening for malformation using ultrasonics documented in this encounter Care Teams Peer Support Specialist Relationship Specialty Start Date End Date Annalisa Christopher MD [address] [place] [address] PCP - General 07/07/08 documented as of this encounter
--- OUTSIDE RECORDS SUMMARY | 2024-10-06 18:15 | XMS_ITS | Encounter Summary ---
Author Organization [facility] Address [address] [place] [address] Care Team Providers Care Tooth Cutter Pinion Name Role Phone Annalisa Christopher MD Primary Care Provider [phone] Reason for Visit * Reason Onset Date Comments Contraception 01/13/2011 Mirena Encounter Details Date Type Department Care Team (Late st Contact Info) Description 01/13/2011 Telephone [facility] LOOM BLOWER - Medical [address] [address] Douglas Patricio MD [address] [place] [address] Contraception (Mirena) Social History Tobacco Use Types Packs/Day Years [...] encounter Miscellaneous Notes * Telephone Encounter - Dahiana Espinosa - 01/17/2011 12:22 PM CDT Pt called to cancel benefit verification. She took home test this weekend that came up positive. * Telephone Encounter - Dahiana Espinosa - 01/13/2011 4:46 PM CDT Spoke with pt about order process. * Telephone Encounter - DukeDahiana jimenez - 01/13/2011 12:47 PM CDT Pt LM to order IUD Mirena. Filled out [facility] form and faxed. documented in this encounter Plan of Treatment Upcoming Encounters Date Type Department Care Team (Late st Contact Info) Description 04/25/2025 8:20 AM CDT Office Visit [facility] Primary Care - [facility] [address] [facility] [address] [place] [address] Annalisa Christopher MD [address] [facility] [facility] [address] [place] [address] documented as of this encounter Visit Diagnoses Not on filedocumented in this encounter Care Teams Tooth Cutter Pinion Relationship Specialty Start Date End Date Annalisa Christopher MD [address] [facility] [facility] [address] [place] [address] PCP - General 07/07/08 documented as of this encounter
--- OUTSIDE RECORDS SUMMARY | 2024-10-06 18:15 | XMS_ITS | Encounter Summary ---
Author Organization [facility] Address [address] [place] [address] Care Team Providers Care Gis Manager Name Role Phone Annalisa Christopher MD Primary Care Provider [phone] Encounter Details Date Type Department Care Team (Latest Contact Info) Description 10/07/2010 1:52 PM DETENTION DEPUTY - 10/07/2010 11:59 PM [facility] Hospital Encounter [facility] [address] [place] [address] Annalisa Christopher MD [address] [place] [address] [address] [place] [address] Primary hypercoagulable state Discharge Disposition: Home or Self Care Social [...] [facility] Primary Care - [facility][1] [address] [facility] [address] [place] [address] Annalisa Christopher MD [address] [place] [address] [address] [place] [address] documented as of this encounter Procedures Procedure Name Priority Date/Time Associated Diagnosis Comments ANTIPHOSPHOLIPID ANTIBODIES Routine 10/07/2010 9:45 AM DETENTION DEPUTY Primary hypercoagulable state CARDIOLIPIN IGG/IGM Routine 10/07/2010 9 :45 AM DETENTION DEPUTY PROTEIN S ACTIVITY Routine 10/07/2010 9: 45 AM DETENTION DEPUTY Primary hypercoagulable state CBC WITH DIFFERENTIAL Routine 10/07/2010 9:45 AM DETENTION DEPUTY Primary hypercoagulable state PROTEIN C ACTIVITY Routine 10/07/2010 9: 45 AM DETENTION DEPUTY Primary hypercoagulable state ANTITHROMBIN III ACTIVITY Routine 10/07/2010 9:45 AM DETENTION DEPUTY Primary hypercoagulable state documented in this encounter Results * CARDIOLIPIN ANTIBODY SCREEN (10/07/2010 9:45 AM DETENTION DEPUTY) CARDIOLIPIN AB SCREEN Negative [facility] Comment: Reference range: ??Negative ? On occasion, a cardiolipin screen will yield positive results which are not confirmed by the more specific individual cardiolipin isotype assays. The screen technology is constructed to capture all possible cardiolipin positive sera. The highly specific individual cardiolipin IgM, IgG and IgA assays are used to confirm the true positive cardiolipin screen specimens, and to rule out those cardiolipin screen positive specimens that may be attributed to other undefined reactants. ? Lab test performed by: [id number] [place] [address] EFRA SALVADOR MD Blood specimen (specimen) 10/07/2010 9:45 AM DETENTION DEPUTY 10/07/2010 2:05 PM DETENTION DEPUTY Annalisa Christopher MD CHEMISTRY ORDERABLES [facility] CLIA# [id number] [address] [place] [address] * CBC WITH DIFFERENTIAL (10/07/2010 9:45 AM DETENTION DEPUTY) WBC 5.6 4.0 - 9.8 K/uL [facility] RBC 4.62 3.90 - 4.90 M/uL [facility] HEMOGLOBIN 13.8 11.8 - 14.8 g/dL [facility] HEMATOCRIT 41.9 35.5 - 44.0 % [facility] MCV 90.7 82.0 - 99.0 fL [facility] MCH 29.9 27.2 - 32.6 pg [facility] MCHC 32.9 31.5 - 35.5 % [facility] PLATELETS 233 140 - 350 K/uL [facility] MPV 10.2 9.3 - 12.4 fL [facility] RDW 12.7 11.5 - 14.5 % [facility] RDW-STDEV 42.2 37.1 - 48.7 fL [facility] NEUTROPHILS 59 45 - 70 % [facility] LYMPHOCYTES 29 16 - 45 % [facility] MONOCYTES 10 3 - 13 % [facility] EOSINOPHILS 1 0 - 7 % [facility] BASOPHILS 0 0 - 2 % [facility] NEUTROPHIL ABSOLUTE 3.29 1.90 - 7.00 K/uL [facility] LYMPHOCYTE ABSOLUTE 1.63 0.70 - 4.50 K/uL [facility] MONOCYTE ABSOLUTE 0.56 0.10 - 1.30 K/uL [facility] EOSINOPHIL ABSOLUTE 0.07 0.00 - 0.70 K/uL [facility] BASOPHILS ABSOLUTE 0.01 0.00 - 0.20 K/uL [facility] Blood specimen (specimen) 10/07/2010 9:45 AM DETENTION DEPUTY 10/07/2010 2:05 PM DETENTION DEPUTY Annalisa Christopher MD HEMATOLOGY ORDERABLE S Performing Organization Address [facility] Co de Phone Number [facility] CLIA# [id number] [address] [place] [address] * (ABNORMAL) ANTITHROMBIN III ACTIVITY (10/07/2010 9:45 AM DETENTION DEPUTY) ANTITHROMBIN III ACTIVITY 133(H) 85 - 130 U/dL [facility] Comment: Performed by [facility], [address] [place], [place] [address]k[place] [address] Blood specimen (specimen) 10/07/2010 9:45 AM DETENTION DEPUTY 10/07/2010 2:05 PM DETENTION DEPUTY Annalisa Christopher MD HEMATOLOGY ORDERABLE S Performing Organization Address [facility] Co de Phone Number [facility] CLIA# [id number] [address] [place] [address] * ANTIPHOSPHOLIPID ANTIBODIES (10/07/2010 9:45 AM DETENTION DEPUTY) COMMENT See Cardiolipin Ab Screen. [facility] Comment: Per Laboratory protocol, Antiphospholipid Antibodies has been replaced with Cardiolipin Antibody Screen. Blood specimen (specimen) 10/07/2010 9:45 AM DETENTION DEPUTY 10/07/2010 2:05 PM DETENTION DEPUTY Annalisa Christopher MD CHEMISTRY ORDERABLES COM Performing Organization Address [facility] Co de Phone Number [facility] CLIA# [id number] [address] [place] [address] * PROTEIN C ACTIVITY (10/07/2010 9:45 AM DETENTION DEPUTY) PROTEIN C ACTIVITY 100 75 - 165 U/dL [facility] Comment: Reference ranges are not available for children or adolescents less that age 18. Performed by [facility], [address] [place] [address] Blood specimen (specimen) 10/07/2010 9:45 AM DETENTION DEPUTY 10/07/2010 2:05 PM DETENTION DEPUTY Annalisa Christopher MD HEMATOLOGY ORDERABLE S Performing Organization Address City/[facility]/ZIP Co de Phone Number [facility] CLIA# [id number] [address] [place] [address] * PROTEIN S ACTIVITY (10/07/2010 9:45 AM DETENTION DEPUTY) PROTEIN S ACTIVITY 85 70 - 130 U/dL [facility] Comment: Performed by [facility], [address] [place] [address] Blood specimen (specimen) 10/07/2010 9:45 AM DETENTION DEPUTY 10/07/2010 2:05 PM DETENTION DEPUTY Annalisa Christopher MD CHEMISTRY ORDERABLES Performing Organization Address City/[facility] Co de Phone Number [facility] CLIA# [id number] [address] [place] [address] documented in this encounter Visit Diagnoses Diagnosis Primary hypercoagulable state documented in this encounter Care Teams Gis Manager Relationship Specialty Start Date End Date Annalisa Christopher MD [address] [place] [id number] PCP - General 07/07/08 documented as of this encounter
--- OUTSIDE RECORDS SUMMARY | 2024-10-06 18:15 | XMS_ITS | Encounter Summary ---
Author Organization [employer] [facility] Address [address] [place] [address] Care Team Providers Care Pcmh Specialist Name Role Phone Annalisa Christopher MD Primary Care Provider [phone] Reason for Referral * Eval and Treat (Routine) - Closed Specialty Diagnoses / Procedures Referred By Contac t Referred To Contact Pulmonology Diagnoses STEVE (obstructive sleep apnea) Annalisa Christopher MD [address] [place] [address] Valente Alvarado MD [address] [place] [address] Referral ID Status Reason Start Date Expiration Date V isits Requested Visits Authorized [id number] Closed CRS To Schedule (STL) 03/05/2015 03/05/2016 1 1 * Eval and Treat (Routine) - Closed Specialty Diagnoses / Procedures Referred By Contac t Referred To Contact Audiology Diagnoses Hearing loss, bilateral Annalisa Christopher MD [address] [place] [address] Vandana Velazquez AU.D [address] [place] [address] Referral ID Status Reason Start Date Expiration Date V isits Requested Visits Authorized [id number] Closed CRS To Schedule (STL) 03/09/2015 09/08/2015 1 1 Reason for Visit * Reason Comments Physical Sinus Problem possible Encounter Details Date Type Department Care Team (Late st Contact Info) Description 03/05/2015 9:00 AM CDT Office Visit [facility] Care - [facility] [address] [place] [address] Annalisa Christopher MD [address] [place] [address] Routine general medical examination at a health care facility (Primary Dx); Malaise and fatigue; Allergic rhinitis due to pollen; STEVE (obstructive sleep apnea); Hearing loss, bilateral Social History Tobacco Use Types Packs/Day Years [...] Sign Reading Time Taken Comments Blood Pressure 120/70 03/05/2015 8:56 AM CDT Pulse - - Temperature - - Respiratory Rate - - Oxygen Saturation - - Inhaled Oxygen Concentration - - Weight 77.6 kg (171 lb) 03/05/2015 8:56 AM CDT Height 170.2 cm (5' 7 ) 03/05/2015 8:56 AM CDT Body Mass Index 26.78 03/05/2015 8:56 AM CDT documented in this encounter Progress Notes * Annalisa Christopher MD - 03/05/2015 9:35 AM CDT HISTORY OF PRESENT ILLNESS Fabiana Pryor, a 39 y.o. female. Subjective Chief Complaint Patient presents with ??? Physical ??? Sinus Problem possible Physical Pertinent negatives include no chest pain, no abdominal pain and no shortness of breath. Patient Active Problem List Diagnosis Date Noted ??? Malaise and fatigue - increased daytime sleepiness Short term memory loss mild Not refreshed after normal sleep 10/08/2013 ??? Allergic rhinitis 08/05/2013 BMI PLAN OF CARE Normal BMI ranges: 18-64 yrs: > or = 18.5 and < 25 65 yrs and older: > or = 23 and < 30 Body mass index is 26.78 kg/(m^2). Abnormal high BMI: patient counseled on lifestyle modifications including weight loss and daily exercise. Weight management options discussed. Also, she has additional complaints of hearing loss x 12 mo noticed - . REVIEW OF SYSTEMS Review of Systems Constitutional: Positive for fatigue and unexpected weight change. Negative for chills. HENT: Positive for hearing loss. Negative for congestion and sinus pressure. Respiratory: Negative for cough, shortness of breath and wheezing. Cardiovascular: Negative for chest pain, palpitations and leg swelling. Gastrointestinal: Negative for nausea, vomiting, abdominal pain and constipation. Genitourinary: Negative for dysuria and urgency. Objective PHYSICAL EXAM BP 120/70 Ht 5' 7 (1.702 m) Wt 171 lb (77.565 kg) BMI 26.78 kg/m2 Physical Exam Constitutional: She is oriented to person, place, and time. No distress. HENT: Head: Normocephalic and atraumatic. Right Ear: External ear normal. Left Ear: External ear normal. Mouth/Throat: No oropharyngeal exudate. Eyes: Conjunctivae and EOM are normal. Pupils are equal, round, and reactive to light. Neck: Normal range of motion. Neck supple. No thyromegaly present. Cardiovascular: Normal rate, regular rhythm and normal heart sounds. Pulmonary/Chest: Effort normal and breath sounds normal. She has no wheezes. She has no rales. Abdominal: Soft. Bowel sounds are normal. There is no tenderness. Lymphadenopathy: She has no cervical adenopathy. Neurological: She is alert and oriented to person, place, and time. Skin: Skin is warm and dry. She is not diaphoretic. Assessment ASSESSMENT and PLAN: ICD-9-CM ICD-10-CM 1. Routine general medical examination at a health care facility V70.0 Z00.00 COMPREHENSIVE METABOLIC PANEL LIPID PANEL CBC WITH DIFFERENTIAL TSH VITAMIN D 25 HYDROXY HEMOGLOBIN A1C POC URINALYSIS DIPSTICK NON AUTOMATED 2. Malaise and fatigue 780.79 R53.81 R/O STEVE R53.83 3. Allergic rhinitis due to pollen 477.0 J30.1 C/w same 4. STEVE (obstructive sleep apnea) 327.23 G47.33 AMB REFERRAL TO SLEEP STUDIES 5. Hearing loss, bilateral 389.9 H91.93 AMB REFERRAL TO AUDIOLOGY The patient is advised to begin progressive daily aerobic exercise program, attempt to lose weight and improve dietary compliance. documented in this encounter Plan of Treatment Upcoming Encounters Date Type Department Care Team (Late st Contact Info) Description 04/25/2025 8:20 AM CDT Office Visit [facility] - [facility] [address] [place] [address] Annalisa Christopher MD [address] [place] [address] Scheduled Referrals Name Type Priority Associated Diagnoses Orde r Schedule AMB REFERRAL TO AUDIOLOGY Outpatient Referral Routine Hearing loss, bilateral Ordered: 03/05/2015 AMB REFERRAL TO SLEEP STUDIES Outpatient Referral Routine STEVE (obstructive sleep apnea) Ordered: 03/05/2015 documented as of this encounter Procedures Procedure Name Priority Date/Time Associated Diagnosis Comments POC URINALYSIS DIPSTICK NON AUTOMATED Routine 03/05/2015 11:01 AM CDT Routine general medical examination at a [facility] CBC WITH DIFFERENTIAL Routine 03/05/2015 9:57 AM CDT Routine general medical examination at a [facility] care facility VITAMIN D 25 HYDROXY Routine 03/05/2015 9:57 AM CDT Routine general medical examination at a [facility] facility TSH Routine 03/05/2015 9:57 AM CDT Routine general medical examination at a [facility] care facility HEMOGLOBIN A1C Routine 03/05/2015 9:57 AM CDT Routine general medical examination at a [facility] facility LIPID PANEL Routine 03/05/2015 9:57 AM CDT Routine general medical examination at a [facility] facility COMPREHENSIVE METABOLIC PANEL Routine 03/05/2015 9:57 AM CDT Routine general medical examination at a health care facility documented in this encounter Results * (ABNORMAL) POC URINALYSIS DIPSTICK NON AUTOMATED (03/05/2015 11:01 AM CDT) COLOR UA Yellow Pale to Dark Yellow [facility] CLARITY UA Clear Clear [facility] SPECIFIC GRAVITY UA 1.000(A) 1.003 - 1.035 [facility] PH UA 7.5 5.0 - 8.0 [facility] LEUKOCYTE ESTERASE UA Negative Negative [facility] NITRITE UA Negative Negative [facility] PROTEIN UA Trace(A) Negative [facility] GLUCOSE UA Negative Negative [facility] KETONES UA 15 mg/dL(A) Negative [facility] UROBILINOGEN UA 0.2 <2.0 mg/dL [facility] BILIRUBIN UA Negative Negative [facility] BLOOD UA Trace(A) Negative [facility] Urine specimen (specimen) 03/05/2015 11:01 AM CDT Annalisa Christopher MD POINT OF CARE TESTIN G [facility] * HEMOGLOBIN A1C (03/05/2015 9:57 AM CDT) HEMOGLOBIN A1C 5.3 4.1 - 6.1 % 03/05/2015 5:07 PM CDT [facility] EST. AVG GLUCOSE, A1C 105 mg/dL 03/05/2015 5:07 PM CDT [facility] Blood Collection / Unknown 03/05/2015 9:57 AM CDT 03/05/2015 2:14 PM CDT Narrative [facility] - 03/05/2015 5:07 PM CDT Based on the ADAG study equation. Annalisa Christpoher MD CHEMISTRY ORDERABLES [facility] [employer] [facility] CLIA# [id number] [address] [place] [address] * VITAMIN D 25 HYDROXY (03/05/2015 9:57 AM CDT) Pathologist [facility] VITAMIN D TOTAL (25OH) 32 ng/ml 03/05/2015 3:36 PM CDT [facility] Comment: Therapy is based on measurement of Total 25-OHD, with levels <20 ng/mL indicative of Vitamin D deficiency in both adults and children. Levels between 20 - 30 ng/mL suggest insufficiency. Optimal levels are > or = 30 ng/mL. If ??adult levels of total 25-OHD exceeds 150 ng/ml, ??this is potentially toxic. Calcium testing is recommended to evaluate the possibility of hypercalcemia. ??For children, toxic vitamin D levels are more weight-dependent. Blood Collection / Unknown 03/05/2015 9:57 AM CDT 03/05/2015 2:14 PM CDT Annalisa Christopher MD CHEMISTRY ORDERABLES [facility] CLIA# [id number] [address] [place] [address] * TSH (03/05/2015 9:57 AM CDT) Pathologist [facility] TSH 0.54 0.27 - 4.20 uIU/mL 03/05/2015 3:33 PM CDT [facility] Blood Collection / Unknown 03/05/2015 9:57 AM CDT 03/05/2015 2:14 PM CDT Annalisa Christopher MD CHEMISTRY ORDERABLES [facility] CLIA# [id number] [address] [place] [address] * (ABNORMAL) CBC WITH DIFFERENTIAL (03/05/2015 9:57 AM CDT) Pathologist [facility] WBC 5.3 4.0 - 9.8 K/uL 03/05/2015 2:36 PM CDT [facility] RBC 4.87 3.90 - 4.90 M/uL 03/05/2015 2:36 PM CDT [facility] HEMOGLOBIN 14.6 11.8 - 14.8 g/dL 03/05/2015 2:36 PM CDT [facility] HEMATOCRIT 44.1(H) 35.5 - 44.0 % 03/05/2015 2:36 PM CDT [facility] MCV 90.6 82.0 - 99.0 fL 03/05/2015 2:36 PM CDT [facility] MCH 30.0 27.2 - 32.6 pg 03/05/2015 2:36 PM CDT [facility] MCHC 33.1 30.0 - 36.0 g/dL 03/05/2015 2:36 PM CDT [facility] RDW 12.7 11.5 - 14.5 % 03/05/2015 2:36 PM CDT [facility] RDW-STDEV 41.7 37.1 - 48.7 fL 03/05/2015 2:36 PM CDT [facility] PLATELETS 236 140 - 350 K/uL 03/05/2015 2:36 PM CDT [facility] MPV 10.5 9.3 - 12.4 fL 03/05/2015 2:36 PM CDT [facility] NEUTROPHILS 58 45 - 70 % 03/05/2015 2:36 PM CDT [facility] LYMPHOCYTES 30 16 - 45 % 03/05/2015 2:36 PM CDT [facility] MONOCYTES 11 3 - 13 % 03/05/2015 2:36 PM CDT [facility] EOSINOPHILS 1 <7 % 03/05/2015 2:36 PM CDT [facility] BASOPHILS 0 <3 % 03/05/2015 2:36 PM CDT [facility] NEUTROPHIL ABSOLUTE 3.06 1.90 - 7.00 K/uL 03/05/2015 2:36 PM CDT [facility] LYMPHOCYTE ABSOLUTE 1.58 0.70 - 4.50 K/uL 03/05/2015 2:36 PM CDT [facility] MONOCYTE ABSOLUTE 0.57 0.10 - 1.30 K/uL 03/05/2015 2:36 PM CDT [facility] EOSINOPHIL ABSOLUTE 0.06 <0.70 K/uL 03/05/2015 2:36 PM CDT [facility] BASOPHILS ABSOLUTE 0.01 <0.30 K/uL 03/05/2015 2:36 PM CDT [facility] Blood Collection / Unknown 03/05/2015 9:57 AM CDT 03/05/2015 2:14 PM CDT Annalisa Christopher MD HEMATOLOGY ORDERABLE S [facility] SERVICES [facility]# [id number] [address] [place] [address] * (ABNORMAL) LIPID PANEL (03/05/2015 9:57 AM CDT) [facility] CHOLESTEROL 168 100 - 199 mg/dL 03/05/2015 3:06 PM CDT [facility] - [facility] TRIGLYCERIDE 56 10 - 149 mg/dL 03/05/2015 3:06 PM CDT [facility] - [facility] HDL 50 40 - 59 mg/dL 03/05/2015 3:06 PM CDT [facility] - [facility] LDL CALCULATED 107(H) <99 mg/dL 03/05/2015 3:06 PM CDT [facility] SERVICES - . [facility] NON-HDL CHOLESTEROL 118 <130 mg/dL 03/05/2015 3:06 PM CDT [facility] - [facility] Blood Collection / Unknown 03/05/2015 9:57 AM CDT 03/05/2015 2:14 PM CDT Narrative [facility] - 03/05/2015 3:06 PM CDT TOTAL CHOLESTEROL mg/dL ??Desirable ? <200 ??Borderline high ?200-239 ??High ?>=240 TRIGLYCERIDES mg/dL ??Normal ?<150 ??Borderline high ?150-199 ??High ? 200-499 ??Very high ? >=500 HDL CHOLESTEROL mg/dL ??Low ?<40 ??Normal ?40-60 ??Desirable ?>60 LDL CHOLESTEROL mg/dL ??Optimal ? <100 ??Low risk ? 100-129 ??Borderline high ?130-159 ??High ? 160-189 ??Very high ? >=190 NON HDL CHOLESTEROL mg/dL ?? Desirable ?<130 ?? Borderline high ? 130-159 ?? High ?160-189 ?? Very high ?>=190 Based on AHA/NCEP Guidelines Annalisa Christopher MD CHEMISTRY ORDERABLES [facility] CLAR# [id number] [address] [place] [address] * COMPREHENSIVE METABOLIC PANEL (03/05/2015 9:57 AM CDT) SODIUM 138 136 - 145 mmol/L 03/05/2015 3:06 PM CDT [facility] POTASSIUM 4.7 3.5 - 5.0 mmol/L 03/05/2015 3:06 PM [facility] CHLORIDE 103 98 - 107 mmol/L 03/05/2015 3:06 PM [facility] CO2 24 22 - 29 mmol/L 03/05/2015 3:06 PM [facility] CALCIUM 9.4 8.6 - 10.2 mg/dL 03/05/2015 3:06 PM [facility] BUN 14 6 - 20 mg/dL 03/05/2015 3:06 PM [facility] CREATININE 0.71 0.51 - 0.95 mg/dL 03/05/2015 3:06 PM [facility] GLUCOSE 93 79 - 99 mg/dL 03/05/2015 3:06 PM [facility] TOTAL PROTEIN 7.1 6.7 - 8.6 g/dL 03/05/2015 3:06 PM [facility] ALBUMIN 4.3 3.5 - 5.2 g/dL 03/05/2015 3:06 PM [facility] BILIRUBIN TOTAL 0.4 0.3 - 1.2 mg/dL 03/05/2015 3:06 PM [facility] ALKALINE PHOSPHATASE 75 35 - 104 U/L 03/05/2015 3:06 PM [facility] AST 25 <33 U/L 03/05/2015 3:06 PM [facility] ALT 30 <34 U/L 03/05/2015 3:06 PM [facility] GFR >60 >=60 mL/min/1.7 3 sq meter 03/05/2015 3:06 PM [facility] Comment: eGFR [...] GFR, >60 >=60 mL/min/1.7 3 sq meter 03/05/2015 3:06 PM CDT [facility] ANION GAP 11 8 - 16 mmol/L 03/05/2015 3:06 PM CDT [facility] Blood Collection / Unknown 03/05/2015 9:57 AM CDT 03/05/2015 2:14 PM CDT Annalisa Christopher MD CHEMISTRY ORDERABLES [facility] CLIA# [id number] [address] [place] [address] documented in this encounter Visit Diagnoses Diagnosis Routine general medical examination at a health care facility- Primary Malaise and fatigue Other malaise and fatigue Allergic rhinitis due to pollen STEVE (obstructive sleep apnea) Obstructive sleep apnea (adult) (pediatric) Hearing loss, bilateral documented in this encounter Care Teams Pcmh Specialist Relationship Specialty Start Date End Date Annalisa Christopher MD [address] [place] [address] PCP - General 07/07/08 documented as of this encounter
--- OUTSIDE RECORDS SUMMARY | 2024-10-06 18:15 | XMS_ITS | Encounter Summary ---
Author Organization [facility] Address [address] [place] [address] Care Team Providers Care Infectious Disease Technician Name Role Phone Annalisa Christopher MD Primary Care Provider [phone] Reason for Visit * Reason Onset Date Comments Rash 07/27/2011 Encounter Details Date Type Department Care Team (Late st Contact Info) Description 07/27/2011 Telephone [facility] NOXIOUS WEEDS AND PEST INSPECTOR - [address] [place] [address] Douglas Patricio MD [address] [place] [address] [place] [phone] Rash Social History Tobacco Use Types Packs/Day Years [...] * Telephone Encounter - Emely Adams - 07/27/2011 9:12 AM CDT Pt informed. AB * Telephone Encounter - Douglas Patricio MD - 07/27/2011 8:58 AM CDT That's fine, if no better in 24-48 hours, call back * Telephone Encounter - Emely Adams - 07/27/2011 8:51 AM CDT Pt is 32 weeks and having rash all over body. No new soap. Itchy. Advised benadryl and calamine lotion but I told her I would check with you about anything else. AB documented in this encounter Plan of Treatment Upcoming Encounters Date Type Department Care Team (Late st Contact Info) Description 04/25/2025 8:20 AM CDT Office Visit [facility] Primary Care - [facility] [address] [facility] [address] [place] [address] Annalisa Christopher MD [address] [facility] [address] [place] [address] documented as of this encounter Visit Diagnoses Not on filedocumented in this encounter Care Teams Infectious Disease Technician Relationship Specialty Start Date End Date Annalisa Christopher MD [address] [facility] [address] [place] [address] PCP - General 07/07/08 documented as of this encounter
--- OUTSIDE RECORDS SUMMARY | 2024-10-06 18:15 | XMS_ITS | Encounter Summary ---
Author Organization [facility] Address [address] [place] [address] Care Team Providers Care Sox Analyst Name Role Phone Annalisa Christopher MD Primary Care Provider [phone] Encounter Details Date Type Department Care Team (Latest Contact Info) Description 02/01/2011 12:00 PM CDT - 02/01/2011 11:59 PM CDT Hospital Encounter [facility] [address] [address] Douglas Patricio MD [address] [place] [phone] Discharge Disposition: Home or Self Care Social [...] 8:20 AM CDT Office Visit [facility] [address] [place] [address] [address] [place] [address] Annalisa Christopher MD [address] [place] [address] [address] [place] [address] documented as of this encounter Procedures Procedure Name Priority Date/Time Associated Diagnosis Comments PROGESTERONE Routine 02/01/2011 12:06 PM CDT examination or test, positive result HCG QUANTITATIVE, BLOOD Routine 02/01/2011 12:06 PM CDT examination or test, positive result documented in this encounter Results * PROGESTERONE (02/01/2011 12:06 PM CDT) PROGESTERONE 20.4 ng/mL [facility] Comment: Progesterone Reference Range: ?Female: Normally Menstruating Female ? Follicular Phase ?0.2 - 1.5 ??ng/mL ? Ovulation Phase ? 0.8 - 3.0 ??ng/mL ? Luteal Phase ?1.7 - 27.0 ng/mL ? Postmenopausal ?0.1 - 0.8 ??ng/mL No Pediatric Reference Range Available. Blood specimen (specimen) 02/01/2011 12:06 PM CDT 02/01/2011 1:48 PM CDT Douglas Patricio MD CHEMISTRY ORDERABLES [facility] CLIA# [id number] [address] [facility] [place] [address] * (ABNORMAL) HCG QUANTITATIVE, BLOOD (02/01/2011 12:06 PM CDT) HCG QUANT, BLOOD 137,992(H ) 0 - 5 mIU/mL [facility] Comment: Result of 5 - 25 mIU/mL is indeterminant for , repeat of test recommemded in 48 hours. Reference Range: Gestational Age: 3 ??Weeks ?5.8 - 71.2 ?mIU/mL 4 ??Weeks ?9.5 - 750 ? mIU/mL 5 ??Weeks ?217 - 6540 ?mIU/mL 6 ??Weeks ?158 - 31,795 ?mIU/mL [...] PM CDT Douglas Patricio MD CHEMISTRY ORDERABLES [facility] CLIA# [id number] [address] [place] [address] documented in this encounter Visit Diagnoses Diagnosis examination or test, positive result documented in this encounter Care Teams Sox Analyst Relationship Specialty Start Date End Date Annalisa Christopher MD [address] [place] [address] PCP - General 07/07/08 documented as of this encounter
--- OUTSIDE RECORDS SUMMARY | 2024-10-06 18:15 | XMS_ITS | Encounter Summary ---
Author Organization [facility] Address [address] [place] [address] Care Team Providers Care Emergency Department Aide Name Role Phone Annalisa Christopher MD Primary Care Provider [phone] Reason for Visit * Reason Onset Date Comments Results 06/28/2011 Encounter Details Date Type Department Care Team (Late st Contact Info) Description 06/28/2011 Telephone [facility] MAJOR GIFTS DIRECTOR - [address] [place] [address] Douglas Patricio MD [address] [place] [address] [place] [phone] Results Social History Tobacco Use Types [...] encounter Miscellaneous Notes * Telephone Encounter - Mayra Lin - 06/28/2011 4:27 PM CDT Pt informed of elevated GTT. Orders placed and faxed to [facility] for 3 hr test.TG documented in this encounter Plan of Treatment Upcoming Encounters Date Type Department Care Team (Late st Contact Info) Description 04/25/2025 8:20 AM CDT Office Visit [facility] Primary Care - [facility] [address] [facility] [address] [place] [address] Annalisa Christopher MD [address] [facility] [address] [place] [address] documented as of this encounter Procedures Procedure Name Priority Date/Time Associated Diagnosis Comments GLUCOSE TOLERANCE GESTATIONAL 3 HR Routine 06/30/2011 8:03 AM CDT documented in this encounter Results * GLUCOSE TOLERANCE GESTATIONAL 3 HR (06/30/2011 8:03 AM CDT) GLUCOSE FASTING - OB 83 65 - 94 mg/dL [facility] GLUCOSE, 1HR 164 <180 mg/dL [facility] GLUCOSE, 2HR 144 <155 mg/dL [facility] GLUCOSE, 3HR 124 <140 mg/dL [facility] SEE NOTE [facility] Comment: ADA Guidelines: Two or more values ?? greater than the above reference intervals are suggestive of gestational diabetes. REPORT COMMENT: FASTING Test Performed at: [facility] [address] [place], [place] ??[address] NELSON FRENCH DO,MPH 06/30/2011 8:03 AM CDT Douglas Patricio MD CHEMISTRY ORDERABLES INTERFACE SYSTEM Refer to clinic/hospital department [facility] [address] [place] [address] documented in this encounter Visit Diagnoses Diagnosis Elevated glucose tolerance test Impaired glucose tolerance test documented in this encounter Care Teams Emergency Department Aide Relationship Specialty Start Date End Date Annalisa Christopher MD [address] [facility] [address] [place] [address] PCP - General 07/07/08 documented as of this encounter
--- OUTSIDE RECORDS SUMMARY | 2024-10-06 18:15 | XMS_ITS | Encounter Summary ---
Author Organization [facility] Address [address] [place] [address] Care Team Providers Care Hand Box Coverer Name Role Phone Annalisa Christopher MD Primary Care Provider [phone] Reason for Visit * Reason Onset Date Comments Scheduled 05/25/2011 EDC: 1 Encounter Details Date Type Department Care Team (Late st Contact Info) Description 05/25/2011 Telephone [facility] QUALITY SYSTEM MANAGER - Medical [address] [address] Douglas Patricio MD [address] [place] [phone] Scheduled (EDC: 09/16/11) Social History Tobacco Use Types Packs/Day Years [...] encounter Miscellaneous Notes * Telephone Encounter - Margaret aCin - 05/25/2011 12:18 PM CDT Per Palomo in l&d, pt's repeat c/s is scheduled on 09/09/11 @ 12:15pm. In surgery book and EPIC. Letter mailed to pt. DM notified. 05/25/11 12:15pm JR documented in this encounter Plan of Treatment Upcoming Encounters Date Type Department Care Team (Late st Contact Info) Description 04/25/2025 8:20 AM CDT Office Visit [facility] [address] [place] [address] Annalisa Christopher MD [address] [place] [address] documented as of this encounter Visit Diagnoses Not on filedocumented in this encounter Care Teams Hand Box Coverer Relationship Specialty Start Date End Date Annalisa Christopher MD [address] [place] [address] PCP - General 07/07/08 documented as of this encounter
--- OUTSIDE RECORDS SUMMARY | 2024-10-06 18:15 | XMS_ITS | Encounter Summary ---
[facility] Organization [facility] Address [address] [place] [address] Care Team Providers Care Jewelry Bench Worker Name Role Phone Annalisa Christopher MD Primary Care Provider [phone] Reason for Visit * Auth/Cert (Routine) - Closed Specialty Diagnoses / Procedures Referred By Contac t Referred To Contact Diagnoses high bp Procedures SECTION Referral ID Status Reason Start Date Expiration Date Visits Re quested Visits Authorized [id number] Closed 08/31/2011 08/30/2012 1 1 Encounter Details Date Type Department Care Team (Latest Contact Info) Description 08/30/2011 4:51 PM FINE HAIRER - 09/04/2011 6:52 PM FINE HAIRER Hospital Encounter [facility] Mother/Baby [address]C [address] [place] [address] Douglas Jeffrey MD [address] [place] [address] Discharge Disposition: Home or Self Care [...] Sign Reading Time Taken Comments Blood Pressure 124/86 09/04/2011 7:38 AM FINE HAIRER Pulse 96 09/04/2011 7:38 AM FINE HAIRER Temperature 36.6 ??C (97.8 ??F) 09/04/2011 7:38 AM CS T Respiratory Rate 18 09/04/2011 7:38 AM FINE HAIRER Oxygen Saturation 97% 09/01/2011 8:00 PM FINE HAIRER Inhaled Oxygen Concentration - - Weight 104.8 kg (231 lb) 08/30/2011 5:21 PM FINE HAIRER Height 170.2 cm (5' 7 ) 08/30/2011 5:21 PM FINE HAIRER Body Mass Index 36.18 08/30/2011 5:21 PM FINE HAIRER documented in this encounter Discharge Summaries * [...] W-CA,FE,FA,<1MG, ( VITAMIN ORAL) Take by mouth. HAIRER documented in this encounter Discharge Instructions * Discharge Instructions* Phuong Kern RN - 09/04/2011 10:20 AM FINE HAIRER PRESCRIPTIONS Prescriptions given? Yes ACTIVITY/EXERCISE Recovery is [...] Thoughts of harming yourself or your baby HAIRER documented in this encounter Progress Notes * Mello Stuart MD - 09/04/2011 6:28 AM CST weed cutter Progress Note Subjective: Pain well controlled with oral medications. Tolerating regular diet and ambulation. Voiding without complaints. Lochia normal. No complaints this morning. Objective: Filed Vitals: 09/03/11 0730 09/03/11 1230 09/03/118 09/04/11 0021 BP: 120/70 118/70 120/80 130/88 Pulse: 88 92 88 84 Temp: 98.2 ??F (36.8 ??C) 98.3 ??F (36.8 ??C) 98.3 ??F (36.8 ??C) 98.2 ??F (36.8 ??C) TempSrc: Oral Oral Oral Oral Resp: 20 20 Height: Weight: SpO2: HEENT: NC, [...] discharge home per attending Mello Stuart MD HAIRER * Gavin Wolf MD - 09/03/2011 9:05 AM CST Patient examined Agree With above bhavani HAIRER * Mello Stuart MD - 09/03/2011 7:10 AM CST weed cutter Progress Note Subjective: Pain well controlled with [...] Oral Oral Oral Oral Resp: 18 18 Height: Weight: SpO2: HEENT: NC, [...] medications and general diet Mello Stuart MD HAIRER * Douglas Jeffrey MD - 09/02/2011 8:50 [...] CDI A/P: POD#1 -doing well, continue care. HAIRER * Mello Stuart MD - 09/02/2011 8:24 AM CST weed cutter Progress Note Subjective: Pain well controlled. Denies [...] @ 1245 ??? S/P 08/31, GHTN Assessment/Plan: POD#2 s/p delivery 1. Vital signs stable, afebrile -Temp (24hrs), Av.7 ??F (36.5 ??C), Min:97.2 ??F (36.2 ??C), Max:98.1 ??F (36.7 ??C) 2. Continue post-op cares -oral pain medications -may shower Mello Stuart MD HAIRER * Surjit Clifton MD - 09/01/2011 6:45 AM CST weed cutter Progress Note Subjective: Pain well controlled. Denies [...] @ 1245 ??? S/P 08/31, GHTN Assessment/Plan: POD#1 s/p delivery 1. Patient doing well. -pain controlled -Vital signs stable, afebrile 2. Urine output adequate -saline lock IV -d/c Reyes 3. Continue post-op cares -ambulate -advance diet as tolerated Surjit Clifton MD PGY-1 HAIRER * Estrellita Schneider MD - 08/31/2011 6:55 AM CST Pt sleeping Filed Vitals: 08/30/11 1825 08/30/11 1840 08/30/11 1855 08/30/11 2344 BP: 128/67 139/75 125/88 112/60 Pulse: Temp: 97.8 ??F (36.6 ??C) TempSrc: Oral Resp: 18 Height: Weight: Not examined FHR reactive Alianza- irreg ctx Plan for repeat this afternoon HAIRER * Nova Chang CNM - 08/30/2011 8:50 PM CST Pt continues to contract every 4-5 min , Cervix 1/long/thick FHR reactive, mod variability, cat 1 D/W , voiced pt's concerns to , will admit to L&D for repeat C/S in 6hours HAIRER * Nova Chang CNM - 08/30/2011 7:47 PM CST Pt continues to contract every 3 min, PIH labs WNL, will continue to monitor , Procardia 10 just given HAIRER documented in this encounter H&P Notes * [...] leaking, occasional contractions, normal movement. Her primary binder and box builder is Douglas Jeffrey MD. Current Problem List: 1. H/o demise at 38 wks 2. H/o CS x1 d/t malpresentation OB History Grav Para Term Abortions TAB SAB Ect Mult Living 7 2 2 4 4 1 # Outc Date GA Lbr Vasquez/2nd Wgt Sex Del Anes PTL Lv 1 1998 2 1999 3 TRM 05/26 38w0d M ND Comments: cord accident 4 TRM 11/26 38w0d [id number](3.487kg) F LTCS EPI No Yes Comments: malpresentation 2008 Comments: D&C 7 CUR GYNHX/ Past Medical History Diagnosis Date ??? Temporomandibular joint disorders, unspecified occasional jaw pain/ rare popping ??? Family history of allergic disorder succinylcholine ??? Asthma Past Surgical History Procedure Date ??? Hx breast augmentation 2006 [facility] ??? Pr dilation/curettage,diagnostic 09/08/2010 DILATATION AND CURETTAGE SUCTION performed by DOUGLAS JEFFREY at [facility] OR MAIN ??? Pr delivery only [...] Monitoring ??? Nonstress Test Notify the attending environmental technical officer, Dr Schneider @ 1855, 10mg procardia given as ordered, hydrate and feed HAIRER documented in this encounter Procedure Notes * Stl Scanning, [facility] - 09/08/2011 8:45 PM CSTAssociated Order(s): TELEMETRY REPORT Electronically signed by [facility], [facility] Stl Mechanical Piping Designer Incoming at 09/08/2011 8:45 PM FINE HAIRER documented in this encounter OR Notes * OR Anesthesia - Stl Scanning, [facility] - 09/09/2011 3:34 PM CST Electronically signed by [employer], [facility] Stl Mechanical Piping Designer Incoming at 09/09/2011 3:34 PM FINE HAIRER * OR Anesthesia - Ofelia Chilel MD [...] erythema. Ofelia Chilel MD 09/02/2011 7:26 AM HAIRER * OR Anesthesia - Rachael Chisholm MD [...] complications Rachael Chisholm MD 09/01/2011 9:13 AM HAIRER * OR Anesthesia - Parker Camacho DO - 08/31/2011 3:52 PM CST OB Anesthesia Recovery Room Postanesthesia Evaluation Including [facility] Modified Sean Score Patient seen and evaluated: RESPIRATORY FUNCTION: Respiration: able to breath and cough freely (08/31/111456) [2=able to breathe and cough freely, 1=dyspnea, limited breathing or tachypnea, 0=apnea or mechanicventilator] O2 Saturation: able to maintain O2 saturation greater than 92% on room air (08/31/11 145) [2=able to maintain O2 saturation greater than 92% on room air, 1=needs O2 inhalation to maintain O2 saturation greater than 90%, 0=O2 saturation less than 90% even with O2 supplement] Resp: 22 (08/31/11 1545)SpO2: 95 % (08/31/11 1446) CARDIOVASCULAR FUNCTION: Heart Rate (Monitored): 86 bpm (08/31/11 1519) BP: 118/80 mmHg (08/31/11 1545) Circulation: BP within 20% of preanesthetic level (08/31/11 1457) [2=BP within 20% of preanesthetic level, 1=BP [...] TEMPERATURE: Temp: 98.2 ??F (36.8 ??C) (08/31/11 1545) PAIN: Pain Rating: Rest: 0 (08/31/11 1504) [...] and not increasing, 0=growing area of wetness] [facility] Modified Sean Score: Score: 20 (08/31/111456) COMMENTS: No apparent Anesthesia related complications Parker Camacho DO 08/31/2011 3:52 PM HAIRER * Operative Report - Briana Wiggins MD - 08/31/2011 1:51 PM CST Note Section Operative Note Date of Procedure: 08/31/2011 Time: Information for the patient's : Zaki Pryor [[id number]] Delivery Time: 1318 (08/31/11 1344) Preoperative Diagnosis: 1. Intrauterine at 37w5d 2. previous 3. GHTN Postoperative Diagnosis: Same Procedure: Repeat Low Transverse Section via Pfannensteil Surgeon: Douglas Jeffrey MD Caterpillar Driver: Briana Wiggins MD Anesthesia: Epidural Complications: None [...] Information for the patient's : Zaki Pryor [[id number]] 1 Minute Score: 7 (08/31/11 1343) 5 Minute Score: 8 (08/31/11 1343) Weight Information for the patient's : Zaki Pryor [[id number]] Weight: 7 lb 12 oz (3.515 kg) [...] dissection. The bladderblade was removed and the infant's head was elevated and delivered atraumatically. The remainder ofthe was then delivered without difficulty, and the 's nose and mouth were suctioned with the bulb suction. The umbilical cord was doubly clamped and cut. The was then handed off to the waiting [...] room in stable condition. Briana Wiggins MD Cro Resident, PGY 4 HAIRER * OR Anesthesia - Harshil Martinez DO - 08/31/2011 12:10 PM FINE HAIRER OB Anesthesia Day of Surgery Pre-Anesthesia Evaluation 08/31/2011 12:10 PM Name: Fabiana Pryor Age: 36 y.o. CSN: [id number] Procedure: Procedure(s): SECTION Surgeons/Assistants: Surgeon(s) and Role: [...] CURETTAGE SUCTION performed by DOUGLAS JEFFREY at [facility] OR MAIN ??? Pr delivery only [...] negative Gastroenterology: negative PHYSICAL EXAM Pulse: 102 (08/30/111720) BP: 110/58 mmHg (08/31/11956) Resp: 18 (08/31/111048) Temp: 98.6 ??F (37 ??C) (08/31/111048) Weight: 231 lb (104.781 kg) (08/30/111720) Height: 5' 7 (170.2 cm) (08/30/111720) BMI: Body mass index is 36.18 kg/(m^2). [...] solicited and answered. Yes Harshil Martinez DO HAIRER documented in this encounter Miscellaneous Notes * Scanned Form - Stl Scanning, [facility] - 09/09/2011 3:34 PM CST Electronically signed by Interface, [facility] Stl Mechanical Piping Designer Incoming at 09/09/2011 3:34 PM FINE HAIRER * Scanned Form - Stl Scanning, [facility] - 09/09/2011 3:34 PM CST Electronically signed by Interface, [facility] Stl Mechanical Piping Designer Incoming at 09/09/2011 3:34 PM FINE HAIRER * Scanned Form - Stl Scanning, [facility] - 09/09/2011 3:34 PM CST Electronically signed by Interface, [facility] Stl Mechanical Piping Designer Incoming at 09/09/2011 3:34 PM FINE HAIRER * Assessment & Plan Note - Stl Scanning, [facility] - 09/09/2011 3:34 PM CST Electronically signed by Interface, [facility] Stl Mechanical Piping Designer Incoming at 09/09/2011 3:34 PM FINE HAIRER * Patient Instructions - Stl Scanning, [facility] - 09/09/2011 3:34 PM CST Electronically signed by Interface, [facility] Stl Mechanical Piping Designer Incoming at 09/09/2011 3:34 PM FINE HAIRER * Care Plan - Phuong Kern RN - 09/04/2011 6:42 PM CST Discharged to hospitality room. Comfortable. D/C teaching done. Understanding verbalized. [place] have been removed as ordered, & steri strips placed. HAIRER * Care Plan - Tori Cruz RN - 09/02/2011 7:01 AM CST Problem: General Plan of Care (Adult, Obstetrics) Goal: Plan of Care Review (Adult, Obstetrics) The patient and/or their event representative will communicate an understanding of their plan of care. Outcome: Progressing Pt ambulating in room without difficulty. Pt denies pain. Pain medication regimen post epidural discussed. Pt verbalize understanding. HAIRER * Treatment Plan - Dhruv Naqvi, PHARMACIST - 08/31/2011 6:09 AM FINE HAIRER Images from the [place] [address] [facility] Labor and Delivery Hemorrhage Protocol Nursing Orders: [...] attending physician. Maximum of 1 dose. o HAIRER documented in this encounter Plan of Treatment Upcoming Encounters Date Type Department Care Team (Late st Contact Info) Description 04/25/2025 8:20 AM CDT Office Visit [facility] [address] [place] [address] Annalisa Christopher MD [address] [place] [address] documented as of this encounter Procedures Procedure Name Priority Date/Time Associated Diagnosis Comments TELEMETRY REPORT 09/08/2011 8:45 PM FINE HAIRER SECTION 08/31/2011 5:23 PM FINE HAIRER HEPATITIS B SURFACE ANTIGEN (L&D) Stat 08/31/2011 9:53 AM FINE HAIRER RUBELLA IGG Stat 08/31/2011 9:53 AM FINE HAIRER RPR Stat 08/31/2011 9:53 AM FINE HAIRER TYPE AND SCREEN Stat 08/30/2011 9:15 PM FINE HAIRER CBC WITH DIFFERENTIAL Stat 08/30/2011 5:45 PM FINE HAIRER URIC ACID Stat 08/30/2011 5:45 PM FINE HAIRER ALT Stat 08/30/2011 5:45 PM FINE HAIRER AST Stat 08/30/2011 5:45 PM FINE HAIRER LACTATE DEHYDROGENASE Stat 08/30/2011 5:45 PM FINE HAIRER URINALYSIS WITH REFLEX CULTURE Stat 08/30/2011 5:33 PM FINE HAIRER URINALYSIS W/REFLEX MICROSCOPIC Stat 08/30/2011 5:33 PM FINE HAIRER URINE CULTURE Stat 08/30/2011 5:33 PM FINE HAIRER documented in this encounter Results * TELEMETRY REPORT (09/08/2011 8:45 PM FINE HAIRER) Narrative Transcriptions Stl Scanning, [facility] - 09/08/2011 8:45 PM CST Provider Scanning ECG ORDERABLES * HEPATITIS B SURFACE ANTIGEN (L&D) (08/31/2011 9:53 AM FINE HAIRER) HEPATITIS B SURFACE AG Nonreactive Nonreactive [facility] LABORATORY SERVICES [facility] Comment: Results called to Dr. Елена De Leon at 08/31/11 1401 and read back verified. Performed by [facility], [address] [place] [address] Blood specimen (specimen) 08/31/2011 9:53 AM FINE HAIRER 08/31/2011 9:56 AM FINE HAIRER Douglas Jeffrey MD CHEMISTRY ORDERABLES Performing Organization Address [facility] de Phone Number [facility] CLIA# [id number] [address] [place] [address] * RPR (08/31/2011 9:53 AM FINE HAIRER) RPR NON-REACT YOVANY NON-REACT YOVANY [facility] Comment: ? Lab test performed by: [employer] [address] [place] [address] NELSON FRENCH DO,MPH Blood specimen (specimen) 08/31/2011 9:53 AM FINE HAIRER 08/31/2011 9:56 AM FINE HAIRER Douglas Jeffrey MD CHEMISTRY ORDERABLES Performing Organization Address [facility] de Phone Number [facility] CLIA# [id number] [address] [place] [address] * RUBELLA IGG (08/31/2011 9:53 AM FINE HAIRER) RUBELLA IGG 2.50 Index [facility] Comment: Index ?Interpretation ? < or = 0.90 ?Negative 0.91-1.09 ?Equivocal > or = 1.10 ?Positive The presence of rubella IgG antibody suggests immunization or past or current infection with rubella virus. ? Lab test performed by: [facility] [id number] [facility] [address] NELSON FRENCH DO,MPH Blood specimen (specimen) 08/31/2011 9:53 AM FINE HAIRER 08/31/2011 9:56 AM FINE HAIRER Douglas Jeffrey MD CHEMISTRY ORDERABLES [facility] Anna Lozabai [facility] CLIA# [id number] [address] [place] [address] * TYPE AND SCREEN (08/30/2011 9:15 PM FINE HAIRER) HISTORY CHECK History Checked [facility] LABORATORY [facility] SPECIMEN LIFE 3 days from drawdate [facility] LABORATORY SERVICES [facility] ABO/RH TYPE B Positive [facility] LABORATORY [facility] ANTIBODY SCREEN Negative [facility]ORATORY [facility] Blood specimen (specimen) 08/30/2011 9:15 PM FINE HAIRER 08/30/2011 9:23 PM FINE HAIRER Nova Chang [facility] BLOOD B[facility] [employer] Refer to clinic/hospital department [facility] LABORATORY [facility] CLIA# [id number] [address] [address] * URIC ACID (08/30/2011 5:45 PM FINE HAIRER) URIC ACID 4.8 2.3 - 6.6 mg/dL [facility] LABORATORY [facility] Blood specimen (specimen) 08/30/2011 5:45 PM FINE HAIRER 08/30/2011 5:50 PM FINE HAIRER Shelly Luong CNM CHEMISTRY ORDERABLES [facility] Anna Lozabai [facility] CLIA# [id number] [address] [address] * LACTATE DEHYDROGENASE (08/30/2011 5:45 PM FINE HAIRER) LD (LACTATE DEHYDROGENASE) 182 135 - 214 U/L [facility] LABORATORY [facility] Blood specimen (specimen) 08/30/2011 5:45 PM FINE HAIRER 08/30/2011 5:50 PM FINE HAIRER Shelly Luong CNM CHEMISTRY ORDERABLES [facility] LABORATORY [facility] CLIA# [id number] [address] [place] [address] * AST (08/30/2011 5:45 PM FINE HAIRER) AST 19 12 - 32 U/L [facility] BORATORY SERVICES [facility] Blood specimen (specimen) 08/30/2011 5:45 PM FINE HAIRER 08/30/2011 5:50 PM FINE HAIRER Shelly Luong CNM CHEMISTRY ORDERABLES Performing Organization Address [facility]/ZIP Co de Phone Number [facility] LABORATORY [facility] CLIA# [id number] [address] [place] [address] * ALT (08/30/2011 5:45 PM FINE HAIRER) ALT 20 0 - 31 U/L [facility] LAB ORATORY SERVICES [facility] Blood specimen (specimen) 08/30/2011 5:45 PM FINE HAIRER 08/30/2011 5:50 PM FINE HAIRER Shelly Luong CNM CHEMISTRY ORDERABLES Performing Organization Address City/[facility]/ZIP Co de Phone Number [facility] LABORATORY [facility]# [id number] [address] [place] [address] * CBC WITH DIFFERENTIAL (08/30/2011 5:45 PM FINE HAIRER) WBC 8.0 4.0 - 9.8 K/uL [facility] LABORATORY SERVICES [facility] RBC 4.39 3.90 - 4.90 M/uL [facility] LABORATORY SERVICES [facility] HEMOGLOBIN 13.1 11.8 - 14.8 g/dL [facility]ATORY SERVICES [facility] HEMATOCRIT 39.7 35.5 - 44.0 % [facility] LABORATORY SERVICES [facility] MCV 90.4 82.0 - 99.0 fL [facility] - [facility] MCH 29.8 27.2 - 32.6 pg [facility] MCHC 33.0 31.5 - 35.5 % [facility] PLATELETS 189 140 - 350 K/uL [facility] MPV 11.5 9.3 - 12.4 fL [facility] - [facility] RDW 14.3 11.5 - 14.5 % [facility] RDW-STDEV 46.5 37.1 - 48.7 fL [facility] - [facility] NEUTROPHILS 69 45 - 70 % [facility] LYMPHOCYTES 19 16 - 45 % [facility] - . [facility] MONOCYTES 11 3 - 13 % [facility] - [facility] EOSINOPHILS 1 0 - 7 % [facility] - . [facility] BASOPHILS 0 0 - 2 % [facility] - . [facility] NEUTROPHIL ABSOLUTE 5.56 1.90 - 7.00 K/uL [facility] LYMPHOCYTE ABSOLUTE 1.52 0.70 - 4.50 K/uL [facility] - . [facility] MONOCYTE ABSOLUTE 0.84 0.10 - 1.30 K/uL [facility] - . [facility] EOSINOPHIL ABSOLUTE 0.08 0.00 - 0.70 K/uL [facility] - . [facility] BASOPHILS ABSOLUTE 0.01 0.00 - 0.20 K/uL [facility] - [facility] Blood specimen (specimen) 08/30/2011 5:45 PM FINE HAIRER 08/30/2011 5:50 PM FINE HAIRER Shelly BRADY HEMATOLOGY ORDERABLE S [facility] LABORATORY SERVICES [facility] CLIA# [id number] [address] [place] [address] * URINE CULTURE (08/30/2011 5:33 PM FINE HAIRER) FINAL MICRO REPORT Polymicrobial growth present consistent with urethral russel and/or colonizing bacteria. [facility]ATORY SERVICES [facility] 08/30/2011 5:33 PM FINE HAIRER 08/30/2011 6:43 PM FINE HAIRER Comment:URINE VOIDED Historical Provider MICROBIOLOGY - GENER AL ORDERABLES [facility] - [facility] CLIA# [id number] [address] [place] [address] * (ABNORMAL) URINALYSIS (08/30/2011 5:33 PM FINE HAIRER) COLOR UA Pale Yellow [facility] - . [facility] CLARITY UA Clear Clear [facility] - . [facility] SPECIFIC GRAVITY UA 1.007 1.001 - 1.035 [facility] - . [facility] PH UA 6.5 5.0 - 8.0 [facility]ORY SERVICES - . [facility] LEUKOCYTE ESTERASE UA 3+(A) Negative [facility] NITRITE UA Negative Negative [facility] PROTEIN UA Negative Negative [facility] GLUCOSE UA Negative Negative [facility] KETONES UA Negative Negative [facility] UROBILINOGEN UA <1 <=1 mg/dL [facility] BILIRUBIN UA Negative Negative [facility] BLOOD UA Negative Negative [facility] WBC UA 3 0 - 5 /HPF [facility] BACTERIA UA 1+(A) None Seen /HPF [facility] EPITHELIAL CELLS, URINE 2-5 /HPF [facility] 08/30/2011 5:33 PM FINE HAIRER 08/30/2011 5:51 PM FINE HAIRER Comment:URINE VOIDED Historical Provider URINE ORDERABLES [facility] - [facility] CLIA# [id number] [address] [place] [address] * URINALYSIS WITH REFLEX CULTURE (08/30/2011 5:33 PM FINE HAIRER) URINE CULTURE ORDER Culture ordered [facility] SERVICES [facility] Comment: Criteria for a reflex culture include one or more of the following: ??Abnormal nitrite, leukocyte esterase, WBCs or RBCs. ??Lack of qualifying criteria does not exclude the possiblity of a urinary tract infection. ??Dilute urine, drug interference, etc. may decrease the sensitivity of the criteria analytes. Urine, clean catch 08/30/2011 5:33 PM FINE HAIRER 08/30/2011 5:51 PM FINE HAIRER Comment:URINE VOIDED Shelly Luong CNM URINE ORDERABLES Performing Organization Address City/State/[facility] Co de Phone Number [facility]# [id number] [address] [place] [address] documented in this encounter Visit Diagnoses Diagnosis Increased blood pressure and swelling during Mild or unspecified pre-eclampsia, unspecified as to episode of care GHTN, ctxns, h/o stillbirth, asthma, RCS 08/31 @ 1245 Other postprocedural status S/P 08/31, GHTN Other postprocedural status documented in this encounter Administered Medications Inactive Administered Medications - up to 3 most recent administrations Medication Order MAR Action Action Date Dose Rate Site ceFAZolin (ANCEF) IVPB 2,000 mg 2,000 mg, IV, PRE-PROCEDURE ONCE, 1 dose, Starting on Mon08/31/11 at 0607, Until Mon08/31/11 at 1235, Routine Given 08/31/2011 12:35 PM FINE HAIRER 2,000 mg docusate sodium (COLACE) capsule 100 mg 100 mg, Oral, TWO TIMES DAILY, First dose on Mon08/31/11 at 2100, Until Discontinued, Routine Given 09/04/2011 9:10 AM FINE HAIRER 100 mg Given 09/03/2011 11:05 PM FINE HAIRER 100 mg Given 09/03/2011 11:04 PM FINE HAIRER 100 mg ferrous sulfate (FEOSOL) tablet 325 mg 325 mg, Oral, DAILY, First dose on Mon08/31/11 at 1600, Until Discontinued, Routine Given 09/04/2011 9:10 AM FINE HAIRER 325 mg Given 09/03/2011 9:27 AM FINE HAIRER 325 mg Given 09/02/2011 9:54 AM FINE HAIRER 325 mg ibuprofen (MOTRIN) tablet 600 mg 600 mg, Oral, EVERY 6 HOURS PRN, Starting on Mon09/02/11 at 1200, Until Mon09/04/11 at 2052, Pain, Routine, When OK with anesthesia. Given 09/04/2011 1:2 6 PM FINE HAIRER 600 mg Given 09/04/2011 7:24 AM FINE HAIRER 600 mg Given 09/04/2011 12:21 AM FINE HAIRER 600 mg ketorolac (TORADOL) injection 30 mg 30 mg, IV, EVERY 6 HOURS, 8 doses, First dose on Mon08/31/11 at 1230, Last dose on Mon09/02/11 at 0600, Routine, (OB POST-OP PAIN SERVICE) Given 09/02/2011 4:52 AM FINE HAIRER 30 mg Given 09/02/2011 12:13 AM FINE HAIRER 30 mg Given 09/01/2011 5:13 PM FINE HAIRER 30 mg lactated ringers solution IV, at 125 mL/hr, PRE-PROCEDURE CONTINUOUS, Starting on Mon08/31/11 at 0615, Until Mon08/31/11 at 1542, Routine New Bag 08/31/2011 12:49 PM FINE HAIRER 125 mL/hr New Bag 08/31/2011 8:04 AM FINE HAIRER 125 mL/hr lactated ringers solution IV, at 125 mL/hr, CONTINUOUS, Starting on Mon08/31/11 at 1545, Until Mon09/02/11 at 2219, Routine New Bag 09/01/2011 6:34 AM FINE HAIRER 125 mL/hr 125 mL /hr meperidine (PF) 1,000 mg in sodium chloride 0.9 % 490 mL epidural 500 mL, Epidural, at 10 mL/hr, CONTINUOUS, Starting on Mon08/31/11 at 1230, Until Mon09/02/11 at 1229, (OB POST-OP PAIN SERVICE) [id number] Rate Verify 08/31/2011 1:58 PM FINE HAIRER 10 mL/hr New Bag 08/31/2011 1:48 PM FINE HAIRER 10 mL/hr NIFEdipine (PROCARDIA) capsule 10 mg 10 mg, Oral, ONE TIME ONLY, 1 dose, On Mon08/30/11 at 1915, Stat Given 08/30/2011 7:36 PM FINE HAIRER 10 mg oxyCODONE-acetaminophen (PERCOCET) 10-325 mg per tablet 1 Tab 1 Tablet, Oral, EVERY 4 HOURS PRN, Starting on Mon09/02/11 at 1300, Until Mon09/04/11 at 2052, Pain, Severe, For Pain Scale 7-10, Routine, When epidural is discontinued. Given 09/04/2011 3:40 PM FINE HAIRER 1 Ta blet Given 09/04/2011 11:38 AM FINE HAIRER 1 Tablet Given 09/04/2011 7:24 AM FINE HAIRER 1 Tablet oxytocin in lactated ringers (PITOCIN) 20 unit/1,000 mL infusion Soln IV, at 125 mL/hr, CONTINUOUS, Starting on Mon08/31/11 at 1230, Until Mon08/31/11 at 1629, Routine, (OB ANESTHESIA ORDER) New Bag 08/31/2011 2:52 PM FINE HAIRER mL/hr 125 mL/hr New Bag 08/31/2011 1:18 PM FINE HAIRER mL/hr 125 mL/hr oxytocin in lactated ringers (PITOCIN) 20 unit/1,000 mL infusion Soln IV, at 125 mL/hr, CONTINUOUS, Starting on Mon08/31/11 at 1545, Until Mon09/01/11 at 0744, Routine Bag Switched 08/31/2011 10:54 PM FINE HAIRER 125 mL/hr 125 mL/hr vit-iron fumarate-fa (PILLO ) 28-0.8 mg per tablet 1 Tab 1 Tablet, Oral, DAILY, First dose on Mon08/31/11 at 1700, Until Discontinued, Routine Given 09/04/2011 9:10 AM FINE HAIRER 1 Tablet Given 09/03/2011 9:27 AM FINE HAIRER 1 Tablet Given 09/02/2011 9:54 AM FINE HAIRER 1 Tablet simethicone (MYLICON) tablet 80 mg 80 mg, Oral, EVERY 6 HOURS PRN, Starting on Mon08/31/11 at 1542, Until 09/04/11 at 2053, Gas, Routine Given 09/04/2011 9:10 AM FINE HAIRER 80 mg Given 09/03/2011 9:27 AM FINE HAIRER 80 mg Given 09/02/2011 6:01 PM FINE HAIRER 80 mg sodium chloride 0.9 % flush injection 3 mL 3 mL, IV, EVERY 8 HOURS, First dose on Mon09/01/11 at 0700, Until Discontinued, Routine Given 09/02/2011 4:53 AM FINE HAIRER 3 mL Given 09/01/2011 9:00 PM FINE HAIRER 3 mL Given 09/01/2011 12:42 PM FINE HAIRER 3 mL zolpidem (AMBIEN) tablet 10 mg 10 mg, Oral, NIGHTLY PRN, Starting on 12/6/11 at 2315, Until Mon08/31/11 at 0608, Insomnia, Routine Given 08/30/2011 11:40 PM FINE HAIRER 10 mg documented in this encounter Active and Recently Administered Medications Times are shown in FINE HAIRER. Scheduled Medication Order 09/02/2011 09/03/2011 09/04/2011 docusate sodium (COLACE) capsule 100 mg 100 mg, Oral, TWO TIMES DAILY, First dose on Mon08/31/11 at 2100, Until Discontinued, Routine 0954 (Given - Provider: Niki Grover RN)2205 (Given - Provider: Xuan Donohue RN) 09 (Given - Provider: Phuong Kern RN)2304 (Given - Provider: Phuong Ortega, ALEXA)2305 (Given - Provider: Phuong Ortega RN) 0910 (Given - Provider: Phuong Kern RN) ferrous sulfate (FEOSOL) tablet 325 mg (CANCELED) 325 mg, Oral, DAILY, First dose on Mon08/31/11 at 1600, Until Discontinued, Routine 0954 (Given - Provider: Niki Grover RN) 09 (Given - Provider: Phuong Kern RN) 0910 (Given - Provider: Phuong Kern RN) [...] 0954 (Given - Provider: Niki Grover RN) 09 (Given - Provider: Phuong Kern RN) 0910 (Given - Provider: Phuong Kern RN) sodium chloride 0.9 % flush injection 3 mL (CANCELED) 3 mL, IV, EVERY 8 HOURS, First dose on Li 09/01/11 at 0700, Until Discontinued, Routine 0453 (Given - Provider: Tori Cruz, ALEXA)1300 (Not Given - Provider: Niki Grover RN - Reason: Route not available)2100 (Not Given - Provider: Xuan Donohue RN - Reason: Clarify-Route) Continuous Medication Order 09/02/2011 09/03/2011 09/04/2011 meperidine (PF) 1,000 mg in sodium chloride 0.9 % 490 mL epidural 500 mL, Epidural, at 10 mL/hr, CONTINUOUS, Starting on Mon08/31/11 at 1230, Until Mon09/02/11 at 1229, (OB POST-OP PAIN SERVICE) [id number] oxytocin in lactated ringers (PITOCIN) 20 unit/1,000 mL infusion Soln IV, at 125 mL/hr, CONTINUOUS, Starting on Mon08/31/11 at 1230, Until Mon08/31/11 at 1629, Routine, (OB ANESTHESIA ORDER) oxytocin in lactated ringers (PITOCIN) 20 unit/1,000 mL infusion Soln IV, at 125 mL/hr, CONTINUOUS, Starting on Mon08/31/11 at 1545, Until Li 09/01/11 at 0744, Routine PRN Medication Order 09/02/2011 09/03/2011 09/04/2011 ibuprofen (MOTRIN) tablet 600 mg 600 mg, Oral, EVERY 6 HOURS PRN, Starting on Mon09/02/11 at 1200, Until Mon09/04/11 at 2053, Pain, Routine, When OK with anesthesia. 1146 (Given - Provider: Niki Grover RN)1800 (Given - Provider: Niki Grover RN) 0036 (Given - Provider: Xuan Donohue, ALEXA)0609 (Given - Provider: Xuan Donohue, ALEXA)1230 (Given - Provider: Phuong Kern, ALEXA)1858 (Given - Provider: Phuong Ortega RN) 0021 (Given - Provider: Laureen Garnica, ALEXA)0724 (Given - Provider: Larueen Garnica, ALEXA)1326 (Given - Provider: Phuong Kern, ALEXA) oxyCODONE-acetaminophe n (PERCOCET) 10-325 mg per tablet [...] Ortega RN) 0311 (Given - Provider: Laureen Garnica, ALEXA)0724 (Given - Provider: Laureen Garnica RN)1138 (Given - Provider: Phuong Kern RN)1540 (Given - Provider: Phuong Kern RN) simethicone (MYLICON) tablet 80 mg (CANCELED) 80 mg, Oral, EVERY 6 HOURS PRN, Starting on Mon08/31/11 at 1542, Until 09/04/11 at 2053, Gas, Routine 0954 (Given - Provider: Niki Grover RN)1801 (Given - Provider: Niki Grover RN) 0927 (Given - Provider: Phuong Kern RN) 0910 (Given - Provider: Phuong Kern RN) documented in this encounter Care Teams Jewelry Bench Worker Relationship Specialty Start Date End Date Annalisa Christopher MD [address] [facility] [address] [place] [phone] PCP - General 07/07/08 documented as of this encounter
--- OUTSIDE RECORDS SUMMARY | 2024-10-06 18:15 | XMS_ITS | Encounter Summary ---
Author Organization [facility] Address [address] [place] [address] Care Team Providers Care Telephone Services Sales Representative Name Role Phone Annalisa Christopher MD Primary Care Provider [phone] Reason for Visit * Reason Comments Routine Visit Encounter Details Date Type Department Care Team (Latest Contact Info) Description 04/27/2011 9:30 AM CDT visit [facility] CREATIVE RESOURCE MANAGER - Medical [address] [address] Douglas Patricio MD [address] [place] [phone] Supervision of other normal (Primary Dx) [...] Sign Reading Time Taken Comments Blood Pressure 130/70 04/27/2011 9:49 AM CDT Pulse - - Temperature - - Respiratory Rate - - Oxygen Saturation - - Inhaled Oxygen Concentration - - Weight 84.8 kg (187 lb) 04/27/2011 9:49 AM CDT Height 170.2 cm (5' 7 ) 04/27/2011 9:24 AM CDT Body Mass Index 29.29 04/27/2011 9:24 AM CDT documented in this encounter Progress Notes * Douglas Patricio MD - 04/27/2011 10:01 AM CDT US normal female; c/o fatigue; discussed 3rd trimester MBPP for previous 39 week IUFD (cord accident) documented in this encounter Plan of Treatment Upcoming Encounters Date Type Department Care Team (Late st Contact Info) Description 04/25/2025 8:20 AM CDT Office Visit [facility] Primary [facility] - [facility] [address] [facility] [address] [place] [address] Annalisa Christopher MD [address] [facility] [address] [place] [address] documented as of this encounter Visit Diagnoses Diagnosis Supervision of other normal - Primary documented in this encounter Care Teams Telephone Services Sales Representative Relationship Specialty Start Date End Date Annalisa Christopher MD [address] [facility] [address] [place] [address] PCP - General 07/07/08 documented as of this encounter
--- OUTSIDE RECORDS SUMMARY | 2024-10-06 18:15 | XMS_ITS | Encounter Summary ---
Author Organization [facility] Address [address] [place] [address] Care Team Providers Care Apartment Groundskeeper Name Role Phone Annalisa Christopher MD Primary Care Provider [phone] Reason for Visit * Reason Onset Date Comments Contraception 10/11/2011 MIRENA Encounter Details Date Type Department Care Team (Late st Contact Info) Description 10/11/2011 Telephone [facility] IMMIGRATION COORDINATOR - Medical [address] [address] Douglas Patricio MD [address] [place] [phone] Contraception (MIRENA) Social History Tobacco Use Types Packs/Day Years [...] Miscellaneous Notes * Telephone Encounter - Dahiana Cuadra - 11/07/2011 10:42 AM CST Pt is aware and doing a payment plan for her device. She is aware the insertion fee of $200 is due at the time of her visit. Transferred to appt line. E OPERATIONS ASSOCIATE * Telephone Encounter - Dahiana Cuadra - 11/07/2011 10:33 AM CST Mirena device arrived in the office. LM for pt to call the office. BILL FOR INSERTION ONLY. E OPERATIONS ASSOCIATE * Telephone Encounter - Dahiana Cuadra - 10/31/2011 9:54 AM CST Called [facility] to follow up on IUD request. Per Pedro, the IUD is excluded in pts plan. They are in theprocess of contacting her to let her know. E OPERATIONS ASSOCIATE * Telephone Encounter - Dahiana Cuadra - 10/11/2011 11:47 AM CST Faxed [facility] form to verify benefits. E OPERATIONS ASSOCIATE documented in this encounter Plan of Treatment Upcoming Encounters Date Type Department Care Team (Late st Contact Info) Description 04/25/2025 8:20 AM CDT Office Visit [facility] Primary Care - [facility] [address] [facility] [address] [place] [phone] Annalisa Christopher MD [address] [place] [address] [place] [phone] documented as of this encounter Visit Diagnoses Not on filedocumented in this encounter Care Teams Apartment Groundskeeper Relationship Specialty Start Date End Date Annalisa Christopher MD [address] [facility] [address] [place] [address] PCP - General 07/07/08 documented as of this encounter
--- OUTSIDE RECORDS SUMMARY | 2024-10-06 18:15 | XMS_ITS | Encounter Summary ---
Author Organization [facility] Address [address] [place] [address] Care Team Providers Care Metal Shaping Machine Operator Name Role Phone Annalisa Christopher MD Primary Care Provider [phone] Reason for Visit * Reason Comments Routine Visit Encounter Details Date Type Department Care Team (Latest Contact Info) Description 08/02/2011 3:30 PM CHILDCARE PROVIDER visit [facility] LUMBER TAILER - [address] [place] [phone] Douglas Patricio MD [address] [place] [address] [place] [phone] Supervision of other normal (Primary Dx) [...] Sign Reading Time Taken Comments Blood Pressure 130/80 08/02/2011 3:25 PM CHILDCARE PROVIDER Pulse - - Temperature - - Respiratory Rate - - Oxygen Saturation - - Inhaled Oxygen Concentration - - Weight 100.7 kg (222 lb) 08/02/2011 3:25 PM CHILDCARE PROVIDER Height 170.2 cm (5' 7 ) 08/02/2011 3:25 PM CHILDCARE PROVIDER Body Mass Index 34.77 08/02/2011 3:25 PM CHILDCARE PROVIDER documented in this encounter Progress Notes * Douglas Patricio MD - 08/02/2011 3:45 PM CST Stopped prilosec; BADW; some edema; C/S 09/09 DCARE PROVIDER documented in this encounter Plan of Treatment Upcoming Encounters Date Type Department Care Team (Late st Contact Info) Description 04/25/2025 8:20 AM CDT Office Visit [facility] Primary Care - [facility] [address] [facility] [address] [place] [address] Annalisa Christopher MD [address] [facility] [address] [place] [address] documented as of this encounter Visit Diagnoses Diagnosis Supervision of other normal - Primary documented in this encounter Care Teams Metal Shaping Machine Operator Relationship Specialty Start Date End Date Annalisa Christopher MD [address] [facility] [address] [place] [address] PCP - General 07/07/08 documented as of this encounter
--- OUTSIDE RECORDS SUMMARY | 2024-10-06 18:15 | XMS_ITS | Encounter Summary ---
Author Organization [facility] Address [address] [place] [address] Care Team Providers Care Ship'S Carpenter Name Role Phone Annalisa Christopher MD Primary Care Provider [phone] Reason for Visit * Reason Comments Routine Visit Encounter Details Date Type Department Care Team (Latest Contact Info) Description 08/16/2011 3:15 PM NETWORK ACCOUNT MANAGER visit [facility] TALENT ACQUISITION CONSULTANT - [address] [address] Douglas Patricio MD [address] [place] [address] [place] [phone] Supervision of other normal (Primary Dx) [...] Reading Time Taken Comments Blood Pressure 128/80 08/16/2011 3:25 PM NETWORK ACCOUNT MANAGER Pulse - - Temperature - - Respiratory Rate - - Oxygen Saturation - - Inhaled Oxygen Concentration - - Weight 102.5 kg (226 lb) 08/16/2011 3:25 PM NETWORK ACCOUNT MANAGER Height - - Body Mass Index 35.4 08/02/2011 3:25 PM NETWORK ACCOUNT MANAGER documented in this encounter Progress Notes * Douglas Patricio MD - 08/16/2011 3:48 PM CST More ctx, more edema ORK ACCOUNT MANAGER documented in this encounter Plan of Treatment Upcoming Encounters Date Type Department Care Team (Late st Contact Info) Description 04/25/2025 8:20 AM CDT Office Visit [facility] Primary Care - [facility] [address] [facility] [address] [place] [address] Annalisa Christopher MD [address] [facility] [address] [place] [address] documented as of this encounter Visit Diagnoses Diagnosis Supervision of other normal - Primary documented in this encounter Care Teams Ship'S Carpenter Relationship Specialty Start Date End Date Annalisa Christopher MD [address] [facility] [address] [place] [address] PCP - General 07/07/08 documented as of this encounter
--- OUTSIDE RECORDS SUMMARY | 2024-10-06 18:15 | XMS_ITS | Encounter Summary ---
Author Organization [facility] Address [address] [place] [address] Care Team Providers Care Perforating Machine Operator Name Role Phone Annalisa Christopher MD Primary Care Provider [phone] Reason for Visit * Reason Comments Post- Care 2 wks c/sec Encounter Details Date Type Department Care Team (Late st Contact Info) Description 09/13/2011 3:00 PM SUBSTANCE ADDICTION COORDINATOR Office Visit [facility] FASHION SUPERVISOR - [address] [address] Douglas Patricio MD [address] [place] [address] [place] [phone] care and examination immediately after delivery (Primary Dx) Social History Tobacco Use Types [...] Sign Reading Time Taken Comments Blood Pressure 118/78 09/13/2011 2:32 PM SUBSTANCE ADDICTION COORDINATOR Pulse - - Temperature - - Respiratory Rate - - Oxygen Saturation - - Inhaled Oxygen Concentration - - Weight 92.5 kg (204 lb) 09/13/2011 2:32 PM SUBSTANCE ADDICTION COORDINATOR Height 170.2 cm (5' 7 ) 09/13/2011 2:32 PM SUBSTANCE ADDICTION COORDINATOR Body Mass Index 31.95 09/13/2011 2:32 PM SUBSTANCE ADDICTION COORDINATOR documented in this encounter Progress Notes * Douglas Patricio MD - 09/13/2011 2:39 PM CST Fabiana Pryor is a 36 y.o., presenting for a post- follow up. She had a repeat low transverse section. Since giving , the patient has done well. Pt denies vaginal bleeding and abnormal discharge. Pt is bottle feeding without problems. Incision is healing well. Bowel and bladder function are normal. Coping well with parenting. EXAM Abdomen soft and nontender. No masses. Uterus firm, nontender. Incision dry and intact, healing well. ASSESSMENT Normal exam at 2 weeks post- PLAN Discussed self-care. Pt instructed to continue modified activities as tolerated, and call office if problems arise F/U visit: 4 wks TANCE ADDICTION COORDINATOR documented in this encounter Plan of Treatment Upcoming Encounters Date Type Department Care Team (Late st Contact Info) Description 04/25/2025 8:20 AM CDT Office Visit [facility] Primary Care - [facility] [address] [place] [address] [place] [address] Annalisa Christopher MD [address] [place] [address] [place] [phone] documented as of this encounter Visit Diagnoses Diagnosis care and examination immediately after delivery- Primary documented in this encounter Care Teams Perforating Machine Operator Relationship Specialty Start Date End Date Annalisa Christopher MD [address] [facility] [address] [place] [address] PCP - General 07/07/08 documented as of this encounter
--- OUTSIDE RECORDS SUMMARY | 2024-10-06 18:15 | XMS_ITS | Encounter Summary ---
Author Organization [facility] Address [address] [place] [address] Care Team Providers Care Retail Area Manager Name Role Phone Annalisa Christopher MD Primary Care Provider [phone] Reason for Visit * Reason Comments Routine Visit Encounter Details Date Type Department Care Team (Latest Contact Info) Description 06/21/2011 1:15 PM CDT visit [facility] ANALYST FOOD AND BEVERAGE - [address] [address] Douglas Patricio MD [address] [place] [address] [place] [phone] Supervision of other normal (Primary Dx) [...] Reading Time Taken Comments Blood Pressure 122/80 06/21/2011 1:18 PM CDT Pulse - - Temperature - - Respiratory Rate - - Oxygen Saturation - - Inhaled Oxygen Concentration - - Weight 94.3 kg (208 lb) 06/21/2011 1:18 PM CDT Height 170.2 cm (5' 7 ) 06/21/2011 1:18 PM CDT Body Mass Index 32.58 06/21/2011 1:18 PM CDT documented in this encounter Progress Notes * Douglas Patricio MD - 06/21/2011 1:46 PM CDT BADW, get labs, CS scheduled; again discussed MBPP, likely not necessary documented in this encounter Plan of Treatment Upcoming Encounters Date Type Department Care Team (Late st Contact Info) Description 04/25/2025 8:20 AM CDT Office Visit [facility] Care - [facility] [address] [place] [address] Annalisa Christopher MD [address] [place] [address] documented as of this encounter Procedures Procedure Name Priority Date/Time Associated Diagnosis Comments HIV DETECTION W/REFLX CONFIRMATION Routine 06/23/2011 9:32 AM CDT GLUCOSE TOLERANCE 1 HR GESTATIONAL Routine 06/23/2011 9:32 AM CDT XHEMOGLOBIN Routine 06/23/2011 9:32 AM CDT HEMATOCRIT Routine 06/23/2011 9:32 AM CDT documented in this encounter Results * HIV ANTIBODY W/REFLX CONFIRMATION (06/23/2011 9:32 AM CDT) HIV-1 AND 2 ABS NON-REACT YOVANY NON-REACT YOVANY [facility] Comment: A Nonreactive HIV-1/2 antibody result does not exclude HIV infection since the time frame for seroconversion is variable. If acute HIV infection is suspected, antibody retesting and nucleic acid amplification (HIV DNA/RNA) testing is recommended. REPORT COMMENT: FASTING Test Performed at: [facility] [address] [place], [place] ??[phone] NELSON FRENCH DO,MPH 06/23/2011 9:32 AM CDT Douglas Patricio MD CHEMISTRY ORDERABLES Performing Organization Address [facility] Phone Number INTERFACE SYSTEM Refer to clinic/hospital department [facility] [address] [place] [phone] * (ABNORMAL) GLUCOSE TOLERANCE 1 HR GESTATIONAL (06/23/2011 9:32 AM CDT) GLUCOSE 1 HR OBSTETRIC 134(H) <130 mg/dL [facility] Comment: In high risk patients, a value of > or = 130 mg/dL indicates the need for a full diagnostic, 100g dose, 3 hour oral Glucose Tolerance Test performed in the fasting state. Test Performed at: [email or web address] ??[id number] NELSON FRENCH DO,MPH 06/23/2011 9:32 AM CDT Douglas Patricio MD CHEMISTRY ORDERABLES Performing Organization Address [facility] Phone Number INTERFACE SYSTEM Refer to clinic/hospital department [facility] [address] [phone] * HEMOGLOBIN (06/23/2011 9:32 AM CDT) HEMOGLOBIN 12.1 11.7 - 15.5 g/dL [facility] Comment: Test Performed at: [email or web address] ??[id number] NELSON FRENCH DO,MPH 06/23/2011 9:32 AM CDT Douglas Patricio MD HEMATOLOGY ORDERABLE S Performing Organization Address [facility] Phone Number INTERFACE SYSTEM Refer to clinic/hospital department [facility] [address] [place] [address] * HEMATOCRIT (06/23/2011 9:32 AM CDT) HEMATOCRIT 35.9 35.0 - 45.0 % [facility] Comment: Test Performed at: [email or web address] ??[id number] NELSON FRENCH DO,MPH 06/23/2011 9:32 AM CDT Douglas Patricio MD HEMATOLOGY ORDERABLE S INTERFACE SYSTEM Refer to clinic/hospital department [facility] [address] [address] documented in this encounter Visit Diagnoses Diagnosis Supervision of other normal - Primary documented in this encounter Care Teams Retail Area Manager Relationship Specialty Start Date End Date Annalisa Christopher MD [address] [place] [address] PCP - General 07/07/08 documented as of this encounter
--- OUTSIDE RECORDS SUMMARY | 2024-10-06 18:15 | XMS_ITS | Encounter Summary ---
Author Organization [facility] Address [address] [place] [address] Care Team Providers Care Domestic Helper Name Role Phone Annalisa Christopher MD Primary Care Provider [phone] Reason for Visit * Reason Comments Routine Visit Encounter Details Date Type Department Care Team (Latest Contact Info) Description 07/19/2011 3:30 PM CDT visit [facility] LEAD DEVELOPER - [address] [address] Douglas Patricio MD [address] [place] [address] [place] [phone] Supervision of other normal (Primary Dx) [...] Sign Reading Time Taken Comments Blood Pressure 140/80 07/19/2011 3:26 PM CDT Pulse - - Temperature - - Respiratory Rate - - Oxygen Saturation - - Inhaled Oxygen Concentration - - Weight 98 kg (216 lb) 07/19/2011 3:26 PM CDT Height 170.2 cm (5' 7 ) 07/19/2011 3:25 PM CDT Body Mass Index 33.83 07/19/2011 3:25 PM CDT documented in this encounter Progress Notes * Douglas Patricio MD - 07/19/2011 3:51 PM CDT Got fluvax; prilosec for reflux; watch NaCl documented in this encounter Plan of Treatment Upcoming Encounters Date Type Department Care Team (Late st Contact Info) Description 04/25/2025 8:20 AM CDT Office Visit [facility] Primary Care - [facility] [address] [facility] [address] [place] [address] Annalisa Christopher MD [address] [facility] [address] [place] [address] documented as of this encounter Visit Diagnoses Diagnosis Supervision of other normal - Primary documented in this encounter Care Teams Domestic Helper Relationship Specialty Start Date End Date Annalisa Christopher MD [address] [facility] [address] [place] [address] PCP - General 07/07/08 documented as of this encounter
--- OUTSIDE RECORDS SUMMARY | 2024-10-06 18:15 | XMS_ITS | Encounter Summary ---
Author Organization [facility] Address [address] [place] [address] Care Team Providers Care Senior Architect Name Role Phone Annalisa Christopher MD Primary Care Provider [phone] Reason for Visit * Reason Onset Date Comments Sinus Infection 10/15/2012 Encounter Details Date Type Department Care Team (Late st Contact Info) Description 10/15/2012 Telephone [facility] Primary Care - [address] [place] [address] Annalisa Christopher MD [address] [place] [address] [address] [place] [address] Sinus Infection Social History Tobacco [...] * Telephone Encounter - Sanjana Tompkins - 10/15/2012 10:19 AM CST Prescription was sent to pharmacy via E-scribe. Called pt script sent to pharmacy per . ING MACHINE SET UP OPERATOR * Telephone Encounter - Annalisa Christopher MD - 10/15/2012 9:36 AM CST Offer Z-elizabeth ING MACHINE SET UP OPERATOR * Telephone Encounter - Emely Cuadra - 10/15/2012 8:52 AM CST Stuffy, drainage, yellow mucous, prod cough, no wheeze or sob, pressure around eyes Hoarse, no fever, headache, no ear ache, x 1wk Taking tylenol cold/flu Asking for rx ING MACHINE SET UP OPERATOR documented in this encounter Plan of Treatment Upcoming Encounters Date Type Department Care Team (Late st Contact Info) Description 04/25/2025 8:20 AM CDT Office Visit [facility] Primary Care - [facility] [address] [facility] [address] [place] [phone] Annalisa Christopher MD [address] [facility] [address] [place] [phone] documented as of this encounter Visit Diagnoses Not on filedocumented in this encounter Care Teams Senior Architect Relationship Specialty Start Date End Date Annalisa Christopher MD [address] [facility] [address] [place] [address] PCP - General 07/07/08 documented as of this encounter
--- OUTSIDE RECORDS SUMMARY | 2024-10-06 18:15 | XMS_ITS | Encounter Summary ---
Author Organization [facility] Address [address] [place] [address] Care Team Providers Care Groundskeeper Supervisor Name Role Phone Annalisa Christopher MD Primary Care Provider [phone] Reason for Visit * Reason Comments Post-op Visit 2 wks D&C missed AB Encounter Details Date Type Department Care Team (Late st Contact Info) Description 09/23/2010 1:30 PM LABORER SYRUP MACHINE Office Visit [facility] FRONT DESK CLERK - [address] [phone] Douglas Patricio MD [address] [place] [address] [place] [phone] Follow-up examination, following unspecified surgery (Primary Dx) Social History Tobacco Use Types [...] Reading Time Taken Comments Blood Pressure 130/80 09/23/2010 1:39 PM LABORER SYRUP MACHINE Pulse - - Temperature - - Respiratory Rate - - Oxygen Saturation - - Inhaled Oxygen Concentration - - Weight 81.2 kg (179 lb) 09/23/2010 1:39 PM LABORER SYRUP MACHINE Height - - Body Mass Index 28.04 09/07/2010 1:11 PM LABORER SYRUP MACHINE documented in this encounter Progress Notes * Douglas Patricio MD - 09/23/2010 1:51 PM CST Fabiana Pryor is a 35 y.o. yo female presenting for post-op visit. She underwent suction D&C. Since surgery she denies fever/chills, N/V, or abnormal bleeding. She is tolerating a regular diet. Normal urination and defecation. EXAM: Abdomen:soft, appropriately tender. Incision(s) clean and intact. No erythema. Pelvic: no masses, appropriately tender. A/P: 2 weeks post op. Pt to increase activity slowly. Abstain from exertion and intercourse until instructed. Call for any complaints or complications. Return to the office as needed. RER SYRUP MACHINE documented in this encounter Plan of Treatment Upcoming Encounters Date Type Department Care Team (Late st Contact Info) Description 04/25/2025 8:20 AM CDT Office Visit [facility] Primary Care - [place] [id number] [facility] [address] [place] [phone] Annalisa Christopher MD [address] [place] [address] [place] [phone] documented as of this encounter Visit Diagnoses Diagnosis Follow-up examination, following unspecified surgery- Primary documented in this encounter Care Teams Groundskeeper Supervisor Relationship Specialty Start Date End Date Annalisa Christopher MD [address] [place] [address] [place] [phone] PCP - General 07/07/08 documented as of this encounter
--- OUTSIDE RECORDS SUMMARY | 2024-10-06 18:15 | XMS_ITS | Encounter Summary ---
Author Organization [facility] Address [address] [place] [address] Care Team Providers Care Blind Slat Stapling Machine Operator Name Role Phone Annalisa [place] MD Primary Care Provider [phone] Reason for Visit * Reason Comments Migraine Blurred Vision Nausea AFTER MIGRAINE Encounter Details Date Type Department Care Team (Latest Contact Info) Description 10/07/2010 8:45 AM IT SECURITY CONSULTANT Office Visit [facility] Primary Care - [address] [place] [phone] Annalisa [place] MD [address] [place] [address] [place] [phone] Migraine; Primary hypercoagulable state; Acute URI Social History Tobacco Use Types Packs/Day Years [...] Sign Reading Time Taken Comments Blood Pressure 114/72 10/07/2010 8:55 AM IT SECURITY CONSULTANT Pulse - - Temperature 36.9 ??C (98.4 ??F) 10/07/2010 8:55 AM CS T Respiratory Rate - - Oxygen Saturation - - Inhaled Oxygen Concentration - - Weight 82.1 kg (181 lb) 10/07/2010 8:55 AM IT SECURITY CONSULTANT Height - - Body Mass Index 28.35 09/07/2010 1:11 PM IT SECURITY CONSULTANT documented in this encounter Progress Notes * Annalisa Christopher MD - 10/07/2010 9:10 AM CST HISTORY OF PRESENT ILLNESS Fabiana Pryor, a 35 y.o. female. HPI Comments: Fabiana Pryor is a 35 y.o. female who presents with patient had Miscarriage last month. This was her third one in her life. No DVTs or PE. She D&C on 09-08-10, she had dizziness after that was worse with head motion. She had severe migraine 2 days ago w/nausea , had some confusion , difficulties spelling episode ( could not focus on correct spelling while texting to her ) Symptom onset has been improving for a time period of 2 days. Severity is described as mild. Nausea Associated symptoms include headaches. Pertinent negatives include no abdominal pain, no chills, nocough and no fever. REVIEW OF SYSTEMS Review of Systems Constitutional: Negative for fever, chills, weight loss and malaise/fatigue. HENT: Negative for hearing loss and tinnitus. Eyes: Positive for blurred vision. Negative for double vision and photophobia. Respiratory: Negative for cough, hemoptysis and sputum production. Cardiovascular: Negative for chest pain and palpitations. Gastrointestinal: Positive for nausea. Negative for vomiting and abdominal pain. Genitourinary: Negative for dysuria, urgency and frequency. Skin: Negative for rash and itching. Neurological: Positive for headaches. Negative for dizziness, tingling and tremors. PHYSICAL EXAM BP 114/72 Temp(Src) 98.4 ??F (36.9 ??C) (Oral) Wt 181 lb (82.101 kg) LMP 09/09/2010 Physical Exam Constitutional: She is oriented to person, place, and time. No distress. HENT: Head: Normocephalic and atraumatic. Right Ear: External ear normal. Left Ear: External ear normal. Mouth/Throat: No oropharyngeal exudate. Eyes: Conjunctivae and extraocular motions are normal. Pupils are equal, round, and reactive to light. Neck: Normal range of motion. Neck supple. No thyromegaly present. Cardiovascular: Normal rate, regular rhythm and normal heart sounds. Pulmonary/Chest: Effort normal and breath sounds normal. She has no wheezes. She has no rales. Abdominal: Soft. Bowel sounds are normal. No tenderness. Lymphadenopathy: She has no cervical adenopathy. Neurological: She is alert and oriented to person, place, and time. Skin: Skin is warm and dry. She is not diaphoretic. ASSESSMENT and PLAN: Encounter Diagnoses 1. Migraine (346.90A) rizatriptan (MAXALT) 10 mg Oral Tab 2. Primary hypercoagulable state (289.81) PROTEIN C & S ACTIVITY, ANTIPHOSPHOLIPID ANTIBODIES, ANTITHROMBIN III ACTIVITY, CBC WITH DIFFERENTIAL, PROTEIN S ACTIVITY, PROTEIN C ACTIVITY 3. Acute URI (465.9C) azithromycin (ZITHROMAX) 250 mg Oral tablet SECURITY CONSULTANT documented in this encounter Plan of Treatment Upcoming Encounters Date Type Department Care Team (Late st Contact Info) Description 04/25/2025 8:20 AM CDT Office Visit [facility] Primary Care - [place] [id number] [facility] [address] [place] [phone] Annalisa [place] MD [address] [place] [address] [place] [phone] documented as of this encounter Results * PROTEIN C ACTIVITY (10/07/2010 9:45 AM IT SECURITY CONSULTANT) PROTEIN C ACTIVITY 100 75 - 165 U/dL [facility] Comment: Reference ranges are not available for children or adolescents less that age 18. Performed by [facility] Coagulation Reference Laboratory, [address] [facility] [place] [address] Blood specimen (specimen) 10/07/2010 9:45 AM IT SECURITY CONSULTANT 10/07/2010 2:05 PM IT SECURITY CONSULTANT Annalisa [place] MD HEMATOLOGY ORDERABLE S [facility] CLIA# [id number] [address] [place] [address] * PROTEIN S ACTIVITY (10/07/2010 9:45 AM IT SECURITY CONSULTANT) Pathologist [facility] PROTEIN S ACTIVITY 85 70 - 130 U/dL [facility] Comment: Performed by [facility] Coagulation Reference Laboratory, [place] [address] Blood specimen (specimen) 10/07/2010 9:45 AM IT SECURITY CONSULTANT 10/07/2010 2:05 PM IT SECURITY CONSULTANT Annalisa [place] MD CHEMISTRY ORDERABLES [facility] CLIA# [id number] [address] [place] [address] * CBC WITH DIFFERENTIAL (10/07/2010 9:45 AM IT SECURITY CONSULTANT) [facility] WBC 5.6 4.0 - 9.8 K/uL [facility] [...] LAB NEUTROPHILS 59 45 - 70 % [facility] LYMPHOCYTES 29 16 - 45 % [facility] MONOCYTES 10 3 - 13 % [facility] EOSINOPHILS 1 0 - 7 % [facility] BASOPHILS 0 0 - 2 % [...] LAB Blood specimen (specimen) 10/07/2010 9:45 AM IT SECURITY CONSULTANT 10/07/2010 2:05 PM IT SECURITY CONSULTANT Annalisa [place] MD HEMATOLOGY ORDERABLE S Performing Organization Address City/[facility] Co de Phone Number [facility] CLIA# [id number] [address] [address] * (ABNORMAL) ANTITHROMBIN III ACTIVITY (10/07/2010 9:45 AM IT SECURITY CONSULTANT) ANTITHROMBIN III ACTIVITY 133(H) 85 - 130 U/dL [facility] Comment: Performed by [facility] Coagulation Reference Laboratory, [facility] [place] [address] Blood specimen (specimen) 10/07/2010 9:45 AM IT SECURITY CONSULTANT 10/07/2010 2:05 PM IT SECURITY CONSULTANT Annalisa [place] MD HEMATOLOGY ORDERABLE S Performing Organization Address City/[facility]/ZIP Co de Phone Number [facility] CLIA# [id number] [address] [place] [address] * ANTIPHOSPHOLIPID ANTIBODIES (10/07/2010 9:45 AM IT SECURITY CONSULTANT) COMMENT See Cardiolipin Ab Screen. [facility] Comment: Per Laboratory protocol, Antiphospholipid Antibodies has been replaced with Cardiolipin Antibody Screen. Blood specimen (specimen) 10/07/2010 9:45 AM IT SECURITY CONSULTANT 10/07/2010 2:05 PM IT SECURITY CONSULTANT Annalisa [place] MD CHEMISTRY ORDERABLES COM [facility] CLIA# [id number] [address] [place] [place] [address] documented in this encounter Visit Diagnoses Diagnosis Migraine Migraine, unspecified, without mention of intractable migraine without mention of status migrainosus Primary hypercoagulable state Acute URI Acute upper respiratory infections of unspecified site Primary hypercoagulable state documented in this encounter Care Teams Blind Slat Stapling Machine Operator Relationship Specialty Start Date End Date Annalisa [place] MD [address] [place] [address] PCP - General 07/07/08 documented as of this encounter
--- OUTSIDE RECORDS SUMMARY | 2024-10-06 18:15 | XMS_ITS | Encounter Summary ---
Author Organization [facility] Address [address] [place] [address] Care Team Providers Care Staff Registered Nurse Name Role Phone Annalisa [place] MD Primary Care Provider [phone] Reason for Visit * Reason Comments Sinus Problem Headache frontal Encounter Details Date Type Department Care Team (Late st Contact Info) Description 06/24/2013 10:30 AM CDT Office Visit [facility] Primary Care - [address] [place] [phone] Annalisa [place] MD [address] [place] [address] [place] [phone] Acute sinusitis (Primary Dx); Extrinsic asthma, unspecified Social History Tobacco Use Types Packs/Day [...] Sign Reading Time Taken Comments Blood Pressure 108/68 06/24/2013 10:43 AM CDT Pulse - - Temperature 36.3 ??C (97.3 ??F) 06/24/2013 1 0:43 AM CDT Respiratory Rate - - Oxygen Saturation - - Inhaled Oxygen Concentration - - Weight 82.9 kg (182 lb 12.8 oz) 013 10:43 AM CDT Height - - Body Mass Index 28.63 08/08/2012 1:27 PM RECRUITING INTERNSHIP documented in this encounter Progress Notes * Annalisa [place] MD - 06/24/2013 11:00 AM CDT HISTORY OF PRESENT ILLNESS Fabiana Pryor, a 37 y.o. female. HPI Chief Complaint Patient presents with ??? Sinus Problem ??? Headache frontal X 1 1/2 week Sinus pressure, tried On Zyrted and mucinex REVIEW OF SYSTEMS Review of Systems Constitutional: Positive for fatigue. HENT: Positive for congestion, rhinorrhea and sinus pressure. Respiratory: Positive for cough and wheezing. Negative for shortness of breath. Cardiovascular: Negative for chest pain, palpitations and leg swelling. Gastrointestinal: Negative for abdominal pain. PHYSICAL EXAM BP 108/68 Temp(Src) 97.3 ??F (36.3 ??C) (Oral) Wt 182 lb 12.8 oz (82.918 kg) BMI 28.62 kg/m2 Physical Exam Constitutional: She is oriented [...] She is not diaphoretic. ASSESSMENT and PLAN: (461.9) Acute sinusitis - Plan: azithromycin (ZITHROMAX) 250 mg Oral tablet (493.00) Extrinsic asthma, unspecified - Plan: albuterol (VENTOLIN HFA) 90 mcg/Actuation InhalationHFAA HFA inhaler, montelukast (SINGULAIR) 10 mg Oral tablet documented in this encounter Plan of Treatment Upcoming Encounters Date Type Department Care Team (Late st Contact Info) Description 04/25/2025 8:20 AM CDT Office Visit [facility] Primary Care - [facility] [address] [facility] [address] [place] [phone] Annalisa [place] MD [address] [facility] [address] [place] [address] documented as of this encounter Visit Diagnoses Diagnosis Acute sinusitis- Primary Acute sinusitis, unspecified Extrinsic asthma, unspecified documented in this encounter Care Teams Staff Registered Nurse Relationship Specialty Start Date End Date Annalisa [place] MD [address] [facility] [address] [place] [address] PCP - General 07/07/08 documented as of this encounter
--- OUTSIDE RECORDS SUMMARY | 2024-10-06 18:15 | XMS_ITS | Encounter Summary ---
Author Organization [facility] Address [address] [place] [address] Care Team Providers Care Experimental Technician Name Role Phone Annalisa Christopher MD Primary Care Provider [phone] Reason for Visit * Reason Comments Physical Upper Respiratory Symptoms Encounter Details Date Type Department Care Team (Late st Contact Info) Description 09/20/2013 9:00 AM OLEOMARGARINE MAKER Office Visit [facility] Primary Care - [address] [place] [address] Mery Villanueva F, COMPRESSED AIR PILE DRIVER OPERATOR- [address] [address] [place] [address] Physical exam, annual (Primary Dx); Extrinsic asthma, unspecified; Acute URI; Screening, lipid; Fatigue; Weight gain Social History Tobacco Use Types Packs/Day Years [...] Sign Reading Time Taken Comments Blood Pressure 96/80 09/20/2013 9:06 AM OLEOMARGARINE MAKER Pulse - - Temperature 36.3 ??C (97.4 ??F) 09/20/2013 9:06 AM CS T Respiratory Rate - - Oxygen Saturation - - Inhaled Oxygen Concentration - - Weight 84.6 kg (186 lb 9.6 oz) 09/20/2013 9:06 A M OLEOMARGARINE MAKER Height 170.2 cm (5' 7 ) 09/20/2013 9:06 AM OLEOMARGARINE MAKER Body Mass Index 29.23 09/20/2013 9:06 AM OLEOMARGARINE MAKER documented in this encounter Progress Notes * Mery Villanueva APRN- - 09/20/2013 9:12 AM CST Mery Villanueva APRN, [facility] [place] [address] SUBJECTIVE: Chief Complaint Patient presents with ??? Physical ??? Upper Respiratory Symptoms Fabiana Gomes a 38 y.o. female who presents for the above. Patient is here for complaints of upper respiratory symptoms which include drainage and cough. She reports history of asthma and increased albuterol use recently. She is using ashley, singulair and flonase. She reports wheezing was more prevalent earlier in week but a little better. Cough is persisting. She reports other health concerns and would like this addressed today. She expresses concern about her weight because despite her best efforts she is not losing weight. She reports hair loss and nail ridging and thinks this is yielding other health problems. Mild constipation problems. She denies chest pain, palpitations, abdominal pain, nausea, vomiting, diarrhea, blood in stool or fevers. She denies increased thirst or urination. She reports history of epigastric pain in past started about 2 years ago with full workup includingnegative HIDA scan. She did not have upper GI. She reports intermittent pain to area, dull ache that sometimes worsens. Right now she does not have this pain. Current medical problems: Patient Active Problem List Diagnosis Date Noted ??? Allergic rhinitis 08/05/2013 ??? Migraine 10/07/2010 ??? Extrinsic Asthma, Unspecified 12/27/2007 ??? Anxiety State, Unspecified 12/27/2007 History Substance Use Topics ??? Smoking status: Former Smoker Quit date: 07/09/2010 ??? Smokeless tobacco: Never Used ??? Alcohol Use: No Patient's Medical History, Medication and Allergy Lists have been reviewed and updates as needed inthe record today. OBJECTIVE: BP 96/80 Temp(Src) 97.4 ??F (36.3 ??C) Ht 5' 7 (1.702 m) Wt 186 lb 9.6 oz (84.641 kg) BMI 29.22 kg/m2 General appearance: alert, well appearing, no apparent distress, Mental Status: alert and oriented. Neck: supple, no significant adenopathy, thyroid is normal. HEENT: normal ears, oropharynx, throat and nodes. Chest: clear to auscultation, no wheezes, rales or rhonchi, symmetric air entry, no respiratory distress. Heart: normal rate, regular rhythm, normal S1/S2, no murmurs, rubs, clicks or gallops. Abdomen: soft, non-tender, non-distended Extremities:no swelling Skin: no apparent rash, warm and dry. ASSESSMENT and PLAN: (V70.0) Physical exam, annual: Labs as noted below. No significant exam findings today. Further recommendations based on labs. (493.00) Extrinsic asthma, unspecified (465.9) Acute URI: Discussed likely viral in nature. Add symbicort and discussed difference between maintenance and rescue inhaler, proper use and dose. Zpak in a few days if worse. (V77.91) Screening, lipid (780.79) Fatigue (783.1) Weight gain Orders: Orders Placed This Encounter ??? CBC WITH DIFFERENTIAL ??? COMPREHENSIVE METABOLIC PANEL ??? LIPID PANEL ??? TSH REFLEXIVE ??? VITAMIN D 25 HYDROXY ??? budesonide-formoterol (SYMBICORT) 80-4.5 mcg/actuation HFA Aerosol Inhaler ??? azithromycin (ZITHROMAX Z-CHRIS) 250 mg tablet Plan to follow up in Routine/ prn Patient was instructed to call the office or return sooner for any problems. The patient verbalizes understanding of plan of care and all questions were answered. MARGARINE MAKER documented in this encounter Plan of Treatment Upcoming Encounters Date Type Department Care Team (Late st Contact Info) Description 04/25/2025 8:20 AM CDT Office Visit [facility] Primary Care - [facility] [address] [place] [address] [address] [place] [address] Annalisa Christopher MD [address] [place] [address] documented as of this encounter Results * VITAMIN D 25 HYDROXY (09/20/2013 1:41 PM OLEOMARGARINE MAKER) Pathologist [facility] [place] VITAMIN D, 25 OH, TOTAL 25 ng/mL [facility] Comment: Therapy is based on measurement of [...] ng/mL. Blood specimen (specimen) 09/20/2013 1:41 PM OLEOMARGARINE MAKER 09/20/2013 2:24 PM OLEOMARGARINE MAKER Mery Villanueva COMPRESSED AIR PILE DRIVER OPERATOR-BC CHEMISTRY ORDERA BLES [facility] CLIA# [id number] [address] [place] [address] * TSH REFLEXIVE (09/20/2013 1:41 PM OLEOMARGARINE MAKER) [facility] TSH 0.63 0.27 - 4.20 uU/mL [facility] Blood specimen (specimen) 09/20/2013 1:41 PM OLEOMARGARINE MAKER 09/20/2013 2:24 PM OLEOMARGARINE MAKER Mery Jyoti Kay COMPRESSED AIR PILE DRIVER OPERATOR-BC CHEMISTRY ORDERA BLES Performing Organization Address City/[facility]/ZIP Co de Phone Number [facility] CLIA# [id number] [address] [place] [address] * (ABNORMAL) LIPID PANEL (09/20/2013 1:41 PM OLEOMARGARINE MAKER) [facility] CHOLESTEROL 199 100 - 199 mg/dL [facility] TRIGLYCERIDE 105 10 - 149 mg/dL [facility] HDL 49 40 - 59 mg/dL [facility] CHOL/HDL RATIO 4.1 2.0 - 5.0 [facility] LDL CALCULATED 129(H) <=99 mg/dL [facility] LIPID PANEL COMMENT See Below [facility] Comment: The adult ATP and pediatric NCEP classifications for lipids are available in the Laboratory Services Policy Manual on the [facility] Intranet at: [email or web address]/ Blood specimen (specimen) 09/20/2013 1:41 PM OLEOMARGARINE MAKER 09/20/2013 2:24 PM OLEOMARGARINE MAKER Mery Montes Kay COMPRESSED AIR PILE DRIVER OPERATOR- CHEMISTRY ORDERA BLES [facility] CLIA# [id number] [address] [facility] [place] [address] * (ABNORMAL) COMPREHENSIVE METABOLIC PANEL (09/20/2013 1:41 PM OLEOMARGARINE MAKER) SODIUM 137 135 - 145 mmol/L [facility] POTASSIUM 4.0 3.5 - 4.9 mmol/L [facility] CHLORIDE 105 96 - 108 mmol/L [facility] CO2 23 22 - 30 mmol/L [facility] CALCIUM 9.2 8.6 - 10.2 mg/dL [facility] BUN 9 6 - 20 mg/dL [facility] CREATININE 0.63 0.51 - 0.95 mg/dL [facility] GLUCOSE 97 65 - 99 mg/dL [facility] TOTAL PROTEIN 6.8 6.3 - 8.6 g/dL [facility] ALBUMIN 4.2 3.4 - 4.8 g/dL [facility] BILIRUBIN TOTAL 0.3 0.2 - 1.0 mg/dL [facility] ALKALINE PHOSPHATASE 107(H) 35 - 104 U/L [facility] AST 53(H) 12 - 32 U/L [facility] ALT 182(H) 0 - 31 U/L [facility] GFR, >60 >=60 mL/min/1. 7 sq meter [facility] GFR >60 >=60 mL/min/1. 7 sq meter [facility] Comment: GFR is calculated using the IDMS-Traceable Modification of Diet in Renal Disease (MDRD) Study formula and is only valid for patients 18 years or older. Further interpretative information is available in the Laboratory Services Policy Manual on the [facility] Intranet at: [email or web address]/ Blood specimen (specimen) 09/20/2013 1:41 PM OLEOMARGARINE MAKER 09/20/2013 2:24 PM OLEOMARGARINE MAKER Mery Villanueva APRN- CHEMISTRY ORDERA BLES [facility] CLIA# [id number] [address] [facility] [place] [address] * (ABNORMAL) CBC WITH DIFFERENTIAL (09/20/2013 1:41 PM OLEOMARGARINE MAKER) WBC 3.6(L) 4.0 - 9.8 K/uL [facility] RBC 4.61 3.90 - 4.90 M/uL [facility] HEMOGLOBIN 13.9 11.8 - 14.8 g/dL [facility] HEMATOCRIT 41.9 35.5 - 44.0 % [facility] MCV 90.9 82.0 - 99.0 fL [facility] MCH 30.2 27.2 - 32.6 pg [facility] MCHC 33.2 31.5 - 35.5 % [facility] PLATELETS 198 140 - 350 K/uL [facility] MPV 10.6 9.3 - 12.4 fL [facility] RDW 13.1 11.5 - 14.5 % [facility] RDW-STDEV 43.2 37.1 - 48.7 fL [facility] NEUTROPHILS 50 45 - 70 % [facility] LYMPHOCYTES 34 16 - 45 % [facility] MONOCYTES 15(H) 3 - 13 % [facility] EOSINOPHILS 2 0 - 7 % [facility] BASOPHILS 0 0 - 2 % [facility] NEUTROPHIL ABSOLUTE 1.77(L) 1.90 - 7.00 K/uL [facility] LYMPHOCYTE ABSOLUTE 1.19 0.70 - 4.50 K/uL [facility] MONOCYTE ABSOLUTE 0.52 0.10 - 1.30 K/uL [facility] . [facility] EOSINOPHIL ABSOLUTE 0.06 0.00 - 0.70 K/uL [facility] BASOPHILS ABSOLUTE 0.01 0.00 - 0.20 K/uL [facility] Blood specimen (specimen) 09/20/2013 1:41 PM OLEOMARGARINE MAKER 09/20/2013 2:24 PM OLEOMARGARINE MAKER Mery Villanueva APRN- HEMATOLOGY ORDER ONUR [facility] [id number] [address] [place] [address] documented in this encounter Visit Diagnoses Diagnosis Physical exam, annual- Primary Routine general medical examination at a health care facility Extrinsic asthma, unspecified Acute URI Acute upper respiratory infections of unspecified site Screening, lipid Screening for lipoid disorders Fatigue Other malaise and fatigue Weight gain Abnormal weight gain documented in this encounter Care Teams Experimental Technician Relationship Specialty Start Date End Date Annalisa Christopher MD [address] [place] [address] PCP - General 07/07/08 documented as of this encounter
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
--- OUTSIDE RECORDS SUMMARY | 2024-10-06 18:15 | XMS_ITS | Encounter Summary ---
Author Organization [facility] Address [address] [place] [address] Care Team Providers Care Edger Machine Setter Name Role Phone Annalisa Christopher MD Primary Care Provider [phone] Reason for Visit * Reason Onset Date Comments Vaginal Bleeding 12/13/2011 Encounter Details Date Type Department Care Team (Late Contact Info) Description 12/13/2011 Telephone [facility] [employer] - [address] [address] Douglas Patricio MD [address] [place] [address] [place] [phone] Vaginal Bleeding Social History Tobacco Use [...] * Telephone Encounter - Emely Adams - 12/13/2011 9:50 AM CDT Pt states she is still bleeding after L[place] last week. Wants to come in. AB documented in this encounter Plan of Treatment Upcoming Encounters Date Type Department Care Team (Late st Contact Info) Description 04/25/2025 8:20 AM CDT Office Visit [facility] Primary Care - [facility] [address] [place] [address] Annalisa Christopher MD [address] [place] [address] documented as of this encounter Visit Diagnoses Not on filedocumented in this encounter Care Teams Edger Machine Setter Relationship Specialty Start Date End Date Annalisa Christopher MD [address] [place] [address] PCP - General 07/07/08 documented as of this encounter
--- OUTSIDE RECORDS SUMMARY | 2024-10-06 18:15 | XMS_ITS | Encounter Summary ---
Author Organization [facility] Address [address] [place] [address] Care Team Providers Care Gastroenterology Nurse Practitioner Name Role Phone Annalisa Christopher MD Primary Care Provider [phone] Reason for Visit * Reason Onset Date Comments Other 05/24/2011 Encounter Details Date Type Department Care Team (Late st Contact Info) Description 05/24/2011 Telephone [facility] [employer] - [address] [place] [address] Douglas Patricio MD [address] [place] [address] [place] [phone] Other Social History Tobacco Use Types Packs/Day Years [...] Telephone Encounter - Douglas Patricio MD - 05/24/2011 4:26 PM CDT SURGERY SCHEDULING REQUEST OFFICE LOCATION: (please indicate in which office the patient is usually seen) [place] PROCEDURE: Repeat CS DIAGNOSIS: Prior CS PREFERRED LOCATION: [facility] PREFERRED DATE: @ PT REQUEST would like Monday09/09/2011 TIME NEEDED: 1 hour TOTAL TIME OUT OF OFFICE: 1.5 hour ANESTHESIA: (please indicate all that apply) EPIDURAL PLEASE SPECIFY: SURGERY ADMIT HEALTH RISK: none ANY OTHER INFORMATION: (indicate EDC for OB patients) EDC 09/16/2011 documented in this encounter Plan of Treatment Upcoming Encounters Date Type Department Care Team (Late st Contact Info) Description 04/25/2025 8:20 AM CDT Office Visit [facility] Care - [facility] [address] [facility] [address] [place] [address] Annalisa Christopher MD [address] [facility] [facility] [address] [place] [address] documented as of this encounter Visit Diagnoses Not on filedocumented in this encounter Care Teams Gastroenterology Nurse Practitioner Relationship Specialty Start Date End Date Annalisa Christopher MD [address] [facility] [address] [place] [address] PCP - General 07/07/08 documented as of this encounter
--- OUTSIDE RECORDS SUMMARY | 2024-10-06 18:15 | XMS_ITS | Encounter Summary ---
Author Organization [facility] Address [address] [place] [address] Care Team Providers Care Trencher Driver Name Role Phone Annalisa Christopher MD Primary Care Provider [phone] Reason for Visit * Reason Onset Date Comments Sore Throat 06/22/2012 Encounter Details Date Type Department Care Team (Late st Contact Info) Description 06/22/2012 Telephone [facility] Primary Care - [address] [place] [address] Annalisa Christopher MD [address] [place] [address] [address] [place] [address] Sore Throat Social History Tobacco Use Types Packs/Day Years [...] * Telephone Encounter - Emely Cuadra - 06/22/2012 1:07 PM CDT Spoke to pt Prescription was sent to pharmacy via E-scribe. * Telephone Encounter - Annalisa Christopher MD - 06/22/2012 1:02 PM CDT Amox 875 po BID x 10 days * Telephone Encounter - Emely Cuadra - 06/22/2012 8:53 AM CDT Both kids have strep throat Pt has scratchy throat, but no other symptoms Language Specialist recommended pt be treated also. L/s 11/09/11 documented in this encounter Plan of Treatment Upcoming Encounters Date Type Department Care Team (Late st Contact Info) Description 04/25/2025 8:20 AM CDT Office Visit [facility] Primary Care - [facility][1] [address] [facility] [address] [place] [address] Annalisa Christopher MD [address] [facility] [address] [place] [address] documented as of this encounter Visit Diagnoses Not on filedocumented in this encounter Care Teams Trencher Driver Relationship Specialty Start Date End Date Annalisa Christopher MD [address] [facility] [address] [place] [address] PCP - General 07/07/08 documented as of this encounter
--- OUTSIDE RECORDS SUMMARY | 2024-10-06 18:15 | XMS_ITS | Encounter Summary ---
Author Organization [facility] Address [address] [place] [address] Care Team Providers Care Critical Care Registered Nurse Name Role Phone Annalisa Christopher MD Primary Care Provider [phone] Reason for Visit * Reason Comments Ultrasound Encounter Details Date Type Department Care Team (Late Contact Info) Description 04/27/2011 9:00 AM CDT Office Visit [facility] SWIMMING COACH OR INSTRUCTOR - [facility] [place] [facility] [address] [facility] [address] [address] Griselda Alvarez state, incidental (Primary Dx) Social History Tobacco Use Types [...] this encounter Progress Notes * Ultrasound - 04/27/2011 9:51 AM CDT Patient seen in office today and Ultrasound exam performed. documented in this encounter Plan of Treatment Upcoming Encounters Date Type Department Care Team (Late Contact Info) Description 04/25/2025 8:20 AM CDT Office Visit [facility] Primary Care - [address] [place] [address] Annalisa Christopher MD [address] [place] [address] Rd [address] [place] [address] documented as of this encounter Procedures Procedure Name Priority Date/Time Associated Diagnosis Comments US OB 14+ WKS SINGLE GEST Routine 04/27/2011 state, incidental documented in this encounter Results * US OB 14+ WKS SINGLE GEST (04/27/2011) Anatomical Region Laterality Modality Pelvis Other Impressions 04/27/2011 Fabiana Pryor is a 35 y.o. female who presents for mid trimester ultrasound. IMPRESSION: Today's ultrasound reveals ??single fetus in the transverse presentation. Placenta is located anteriorly. ??A female gender is suspected. ??The face, heart, spine, stomach, kidneys, bladder were all imaged. ??The heartbeat measured 150 bpm. ??The amniotic fluid volume is 17.36 cm. There are no obvious markers of aneuploidy. ??Ultrasound would validate an EDC of 09/19/2011. ??Repeat as indicated. Clinical correlation is recommended. Douglas Patricio MD US ORDERABLES documented in this encounter Visit Diagnoses Diagnosis state, incidental- Primary documented in this encounter Care Teams Critical Care Registered Nurse Relationship Specialty Start Date End Date Annalisa Christopher MD [address] [place] [address] PCP - General 07/07/08 documented as of this encounter
--- OUTSIDE RECORDS SUMMARY | 2024-10-06 18:15 | XMS_ITS | Encounter Summary ---
Author Organization [facility] Address [address] [place] [address] Care Team Providers Care Supervisor Continuous Weld Pipe Mill Name Role Phone Annalisa Christopher MD Primary Care Provider [phone] Reason for Visit * Reason Comments Routine Visit Encounter Details Date Type Department Care Team (Latest Contact Info) Description 08/23/2011 3:15 PM VEGETABLE INSPECTOR visit [facility] HIGH VALUE ASSOCIATE - [address] [address] Douglas Patricio MD [address] [place] [address] [place] [phone] Supervision of other normal (Primary Dx) [...] Sign Reading Time Taken Comments Blood Pressure 122/70 08/23/2011 3:11 PM VEGETABLE INSPECTOR Pulse - - Temperature - - Respiratory Rate - - Oxygen Saturation - - Inhaled Oxygen Concentration - - Weight 103.4 kg (228 lb) 08/23/2011 3:11 PM VEGETABLE INSPECTOR Height - - Body Mass Index 35.71 08/02/2011 3:25 PM VEGETABLE INSPECTOR documented in this encounter Progress Notes * Douglas Patricio MD - 08/23/2011 3:20 PM CST BADW; no complaints TABLE INSPECTOR documented in this encounter Plan of Treatment Upcoming Encounters Date Type Department Care Team (Late st Contact Info) Description 04/25/2025 8:20 AM CDT Office Visit [facility] Primary Care - [facility] [address] [facility] [address] [place] [address] Annalisa Christopher MD [address] [facility] [address] [place] [address] documented as of this encounter Visit Diagnoses Diagnosis Supervision of other normal - Primary documented in this encounter Care Teams Supervisor Continuous Weld Pipe Mill Relationship Specialty Start Date End Date Annalisa Christopher MD [address] [facility] [address] [place] [address] PCP - General 07/07/08 documented as of this encounter
--- OUTSIDE RECORDS SUMMARY | 2024-10-06 18:15 | XMS_ITS | Encounter Summary ---
Author Organization [facility] Address [address] [place] [address] Care Team Providers Care Clinical Staff Pharmacist Name Role Phone Annalisa Christopher MD Primary Care Provider [phone] Encounter Details Date Type Department Care Team (Latest Contact Info) Description 10/05/2013 9:22 AM LAND LEASING INFORMATION CLERK - 10/05/2013 11:59 PM [facility] Hospital Encounter [facility] [place] [facility] [address], [place] [address] Annalisa Christopher MD [address] [place] [address] Rd [address] [place] [address] Discharge Disposition: Home or Self [...] 0 09/20/2013 05/22/2014 fluticasone (FLONASE) 50 mcg/spray [place], SuspensionIndications :Allergic rhinitis Administer 2 Sprays in [...] 8:20 AM CDT Office Visit [facility] Care - [facility] [address] [facility] [address] [place] [address] Annalisa Christopher MD [address] [facility] [address] [place] [address] documented as of this encounter Procedures Procedure Name Priority Date/Time Associated Diagnosis Comments ACUTE HEPATITIS PANEL Routine 10/05/2013 9:28 AM LAND LEASING INFORMATION CLERK Malaise and fatigue Elevated liver enzymes Epigastric abdominal pain HEPATITIS B SURFACE ANTIGEN Routine 10/05/2013 9:28 AM LAND LEASING INFORMATION CLERK HEPATITIS C ANTIBODY Routine 10/05/2013 9:28 AM LAND LEASING INFORMATION CLERK HEPATITIS B CORE IGM Routine 10/05/2013 9:28 AM LAND LEASING INFORMATION CLERK HEPATITIS A IGM Routine 10/05/2013 9:28 AM LAND LEASING INFORMATION CLERK GGT Routine 10/05/2013 9:28 AM LAND LEASING INFORMATION CLERK Malaise and fatigue Elevated liver enzymes Epigastric abdominal pain COMPREHENSIVE METABOLIC PANEL Routine 10/05/2013 9:28 AM LAND LEASING INFORMATION CLERK Malaise and fatigue Elevated liver enzymes Epigastric abdominal pain documented in this encounter Results * HEPATITIS B CORE IGM (10/05/2013 9:28 AM LAND LEASING INFORMATION CLERK) HEPATITIS B CORE IGM Negative Negative [facility] [employer] [facility] Comment: Test Performed by: [facility] - [address] [address] Outside Residential Sales Professional: Jose C Alcaraz III, M.D. Blood specimen (specimen) 10/05/2013 9:28 AM LAND LEASING INFORMATION CLERK 10/05/2013 9:34 AM LAND LEASING INFORMATION CLERK Mery F Kay BRANCH LENDING MANAGER-BC CHEMISTRY ORDERA BLES Performing Organization Address [facility] Co de Phone Number [facility] [employer] [facility] CLIA# [id number] [address] [place] [address] * HEPATITIS A IGM (10/05/2013 9:28 AM LAND LEASING INFORMATION CLERK) [facility] HEPATITIS A IGM Negative Negative [facility] [employer] [facility] Comment: Test Performed by: [facility] - [address] [address] Outside Residential Sales Professional: Jose C Alcaraz III, M.D. Blood specimen (specimen) 10/05/2013 9:28 AM LAND LEASING INFORMATION CLERK 10/05/2013 9:34 AM LAND LEASING INFORMATION CLERK Mery Jyoti Kay BRANCH LENDING MANAGER-BC CHEMISTRY ORDERA BLES Performing Organization Address [facility] de Phone Number [facility] [employer] [facility] CLIA# [id number] [address] [place] [address] * HEPATITIS C ANTIBODY (10/05/2013 9:28 AM LAND LEASING INFORMATION CLERK) [facility] HEPATITIS C AB NON-REACT YOVANY NON-REACT YOVANY [facility] [employer] [facility] SIGNAL TO CUT OFF 0.02 <1.00 [facility] [employer] [facility] Comment: ? Lab test performed by: [facility] [address] [place] [address] NELSON FRENCH DO,MPH Blood specimen (specimen) 10/05/2013 9:28 AM LAND LEASING INFORMATION CLERK 10/05/2013 9:34 AM LAND LEASING INFORMATION CLERK Mery Jyoti Villanueva BRANCH LENDING MANAGER-BC CHEMISTRY ORDERA BLES Performing Organization Address [facility]/ZIP Co de Phone Number [facility] CLIA# [id number] [address] [place] [address] * HEPATITIS B SURFACE ANTIGEN (10/05/2013 9:28 AM LAND LEASING INFORMATION CLERK) Pathologist [facility] HEPATITIS B SURFACE AG Nonreactive Nonreactive [employer] [facility] Blood specimen (specimen) 10/05/2013 9:28 AM LAND LEASING INFORMATION CLERK 10/05/2013 9:34 AM LAND LEASING INFORMATION CLERK Mery Villanueva BRANCH LENDING MANAGERNeighborMD CHEMISTRY ORDERA BLES Performing Organization Address [facility]/ZIP Co de Phone Number [facility] CLIA# [id number] [address] [place] [address] * GGT (10/05/2013 9:28 AM LAND LEASING INFORMATION CLERK) Pathologist [facility] GGT 36 5 - 36 U/L [facility] Blood specimen (specimen) 10/05/2013 9:28 AM LAND LEASING INFORMATION CLERK 10/05/2013 9:35 AM LAND LEASING INFORMATION CLERK Mery Villanueva BRANCH LENDING [email or web address] CHEMISTRY ORDERA BLES Performing Organization Address [facility]/ZIP Co de Phone Number [facility] CLIA# [id number] [address] [place] [address] * COMPREHENSIVE METABOLIC PANEL (10/05/2013 9:28 AM LAND LEASING INFORMATION CLERK) SODIUM 141 135 - 145 mmol/L [employer] POTASSIUM 4.1 3.5 - 4.9 mmol/L [employer] - . [facility] CHLORIDE 108 96 - 108 mmol/L [employer] - . [facility] CO2 22 22 - 30 mmol/L [employer] [facility] CALCIUM 8.9 8.6 - 10.2 mg/dL [employer] - . [facility] BUN 13 6 - 20 mg/dL [employer] - . [facility] CREATININE 0.73 0.51 - 0.95 mg/dL [facility]ATORY [facility] GLUCOSE 99 65 - 99 mg/dL [facility] TOTAL PROTEIN 7.4 6.3 - 8.6 g/dL [facility] ALBUMIN 4.5 3.4 - 4.8 g/dL [facility] BILIRUBIN TOTAL 0.4 0.2 - 1.0 mg/dL [facility] ALKALINE PHOSPHATASE 76 35 - 104 U/L [facility] AST 20 12 - 32 U/L [facility] ALT 29 0 - 31 U/L [facility] GFR, >60 >=60 mL/min/1. 7 sq meter [facility]ATORY [facility] GFR >60 >=60 mL/min/1. 7 sq meter [facility] Comment: GFR is calculated using the IDMS-Traceable Modification of Diet in Renal Disease (MDRD) Study formula and is only valid for patients 18 years or older. Further interpretative information is available in the Laboratory Services Policy Manual on the [facility] Intranet at: http://[facility] hospital[facility]/ Blood specimen (specimen) 10/05/2013 9:28 AM LAND LEASING INFORMATION CLERK 10/05/2013 9:35 AM LAND LEASING INFORMATION CLERK Mery Villanueva [email or web address] CHEMISTRY ORDERA BLES Performing Organization Address [facility]/ZIP Co de Phone Number [facility] CLIA# [id number] [address] [facility] [place] [address] * ACUTE HEPATITIS PANEL (10/05/2013 9:28 AM LAND LEASING INFORMATION CLERK) COMMENT See Additional Orderables [facility] Blood specimen (specimen) 10/05/2013 9:28 AM LAND LEASING INFORMATION CLERK 10/05/2013 9:34 AM LAND LEASING INFORMATION CLERK Mery Villanueva BRANCH LENDING MANAGER- CHEMISTRY ORDERA BLES [facility] LABORATORY SERVICES [facility]# [id number] [address] [place] [place] [address] documented in this encounter Visit Diagnoses Diagnosis Malaise and fatigue Other malaise and fatigue Elevated liver enzymes Nonspecific elevation of levels of transaminase or lactic acid dehydrogenase (LDH) Epigastric abdominal pain Abdominal pain, epigastric documented in this encounter Care Teams Clinical Staff Pharmacist Relationship Specialty Start Date End Date Annalisa Christopher MD [address] [place] [address] PCP - General 07/07/08 documented as of this encounter
--- OUTSIDE RECORDS SUMMARY | 2024-10-06 18:15 | XMS_ITS | Encounter Summary ---
Author Organization [facility] Address [address] [place] [address] Care Team Providers Care Filling Room Operator Name Role Phone Annalisa Christopher MD Primary Care Provider [phone] Reason for Visit * Reason Comments Initial Visit Encounter Details Date Type Department Care Team (Latest Contact Info) Description 03/01/2011 11:45 AM CDT Initial [facility] CROWN IRONER OPERATOR - [address] [place] [address] Douglas aPtricio MD [address] [place] [address] [place] [phone] Supervision of other normal (Primary Dx) [...] Reading Time Taken Comments Blood Pressure 120/70 03/01/2011 12:13 PM CDT Pulse - - Temperature - - Respiratory Rate - - Oxygen Saturation - - Inhaled Oxygen Concentration - - Weight 80.3 kg (177 lb) 03/01/2011 12:13 PM CDT Height 170.2 cm (5' 7 ) 03/01/2011 12:13 PM CDT Body Mass Index 27.72 03/01/2011 12:13 PM CDT documented in this encounter Progress Notes * Douglsa Patricio MD - 03/01/2011 1:04 PM CDT Reviewed US, labs, and OB history; G1 was demise noted @ 39 wks upon presentation in labor, preg had been uncomplicated. G2 progressed to complete dilation, but developed hand presentation and proceeded to LTCS; desires repeat CS; not planning on any more pregnancies; again discussed genetic testing, refused any documented in this encounter Plan of Treatment Upcoming Encounters Date Type Department Care Team (Late st Contact Info) Description 04/25/2025 8:20 AM CDT Office Visit [facility] Primary Care - [facility] [address] [facility] [address] [place] [address] Annalisa Christopher MD [address] [facility] [address] [place] [address] documented as of this encounter Visit Diagnoses Diagnosis Supervision of other normal - Primary documented in this encounter Care Teams Filling Room Operator Relationship Specialty Start Date End Date Annalisa Christopher MD [address] [facility] [address] [place] [address] PCP - General 07/07/08 documented as of this encounter
--- OUTSIDE RECORDS SUMMARY | 2024-10-06 18:15 | XMS_ITS | Encounter Summary ---
Author Organization [facility] Address [address] [place] [address] Care Team Providers Care Optical Instrument Repairer Name Role Phone Annalisa Christopher MD Primary Care Provider [phone] Reason for Visit * Reason Comments Medication Refill Encounter Details Date Type Department Care Team (Late st Contact Info) Description 11/16/[address] [place] [address] Annalisa Christopher MD [address] [place] [address] [address] [place] [address] Social History Tobacco Use Types [...] * Telephone Encounter - Kathleen Harmon - 11/18/2013 10:04 AM CST L/r 05/28/13 L/ov 09/20/13 [address] documented in this encounter Plan of Treatment Upcoming Encounters Date Type Department Care Team (Late st Contact Info) Description 04/25/2025 8:20 AM CDT Office Visit [facility] [address] [place] [address] Annalisa Christopher MD [address] [place] [address] documented as of this encounter Visit Diagnoses Not on filedocumented in this encounter Care Teams Optical Instrument Repairer Relationship Specialty Start Date End Date Annalisa Christopher MD [address] [place] [address] PCP - General 07/07/08 documented as of this encounter
--- OUTSIDE RECORDS SUMMARY | 2024-10-06 18:15 | XMS_ITS | Encounter Summary ---
Author Organization [facility] Address [address] [place] [address] Care Team Providers Care Enrollment Eligibility Representative Name Role Phone Annalisa Christopher MD Primary Care Provider [phone] Reason for Visit * Reason Comments Medication Refill Encounter Details Date Type Department Care Team (Late st Contact Info) Description 11/18/[address] [place] [address] Annalisa Christopher MD [address] [place] [address] [address] [place] [address] Social History Tobacco Use Types [...] AM CDT Office Visit [facility] [address] [place] [address] [address] [place] [address] Annalisa Christopher MD [address] [place] [address] [address] [place] [address] documented as of this encounter Visit Diagnoses Not on filedocumented in this encounter Care Teams Enrollment Eligibility Representative Relationship Specialty Start Date End Date Annalisa Christopher MD [address] [place] [address] PCP - General 07/07/08 documented as of this encounter
--- OUTSIDE RECORDS SUMMARY | 2024-10-06 18:15 | XMS_ITS | Encounter Summary ---
Author Organization [facility] Address [address] [place] [address] Care Team Providers Care Golf Range Attendant Name Role Phone Annalisa Christopher MD Primary Care Provider [phone] Reason for Visit * Reason Onset Date Comments Question 08/05/2011 Encounter Details Date Type Department Care Team (Late st Contact Info) Description 08/05/2011 Telephone [facility] INSTRUCTOR WARPER - [address] [address] Douglas Patricio MD [address] [place] [address] [place] [phone] Question Social History Tobacco Use Types Packs/Day [...] Telephone Encounter - Douglas Patricio MD - 08/08/2011 6:11 PM CST LMOR that if she feels she had close contact with her niece, to call and we can check CMV IGG and IGM LE GRINDER FEEDER * Telephone Encounter - Mayra Lin - 08/05/2011 8:59 AM CST Pt states that she is 33 weeks and her nisce was just diagnosed with CMV virus. Should shebe concerned? LE GRINDER FEEDER documented in this encounter Plan of Treatment Upcoming Encounters Date Type Department Care Team (Late st Contact Info) Description 04/25/2025 8:20 AM CDT Office Visit [facility] [address] [facility] [address] [place] [address] Annalisa Christopher MD [address] [facility] [address] [place] [address] documented as of this encounter Visit Diagnoses Not on filedocumented in this encounter Care Teams Golf Range Attendant Relationship Specialty Start Date End Date Annalisa Christopher MD [address] [facility] [address] [place] [address] PCP - General 07/07/08 documented as of this encounter
--- OUTSIDE RECORDS SUMMARY | 2024-10-06 18:15 | XMS_ITS | Encounter Summary ---
Author Organization [facility] Address [address] [place] [address] Care Team Providers Care Cushion Builder Name Role Phone Annalisa Christopher MD Primary Care Provider [phone] Reason for Visit * Reason Comments Ear Problem pressure and ringing in the ear Encounter Details Date Type Department Care Team (Late st Contact Info) Description 06/23/2014 10:00 AM CDT Office Visit [facility] Primary Care - [address] [place] [address] Annalisa Christopher MD [address] [place] [address] [place] [address] Allergic rhinitis (Primary Dx); Need for prophylactic vaccination and inoculation against influenza Social History Tobacco Use Types Packs/Day Years [...] Sign Reading Time Taken Comments Blood Pressure 108/72 06/23/2014 10:01 AM CDT Pulse - - Temperature 36.7 ??C (98.1 ??F) 06/23/2014 10:01 AM C DT Respiratory Rate - - Oxygen Saturation - - Inhaled Oxygen Concentration - - Weight 83.5 kg (184 lb) 06/23/2014 10:01 AM CDT Height 170.2 cm (5' 7 ) 06/23/2014 10:01 AM CDT Body Mass Index 28.82 06/23/2014 10:01 AM CDT documented in this encounter Progress Notes * Annalisa Christopher MD - 06/23/2014 10:32 AM CDT HISTORY OF PRESENT ILLNESS Fabiana Pryor, a 38 y.o. female. HPI Chief Complaint Patient presents with ??? Ear Problem pressure and ringing in the ear Since March - sinus pressure, bilateral ear ache, sometimes ringing sound, no hearing loss Mild sore throat REVIEW OF SYSTEMS Review of Systems Constitutional: Negative. Negative for fever. HENT: Positive for ear pain, congestion, sore throat, sinus pressure and tinnitus. Respiratory: Negative for cough, shortness of breath and wheezing. Cardiovascular: Negative for chest pain, palpitations and leg swelling. Gastrointestinal: Negative for abdominal pain. Neurological: Positive for headaches. PHYSICAL EXAM BP 108/72 Temp(Src) 98.1 ??F (36.7 ??C) Ht 5' 7 (1.702 m) Wt 184 lb (83.462 kg) BMI 28.81 kg/m2 Physical Exam Constitutional: She is oriented to person, place, and time. No distress. HENT: Head: Normocephalic and atraumatic. Right Ear: External ear normal. Left Ear: External ear normal. Nose: Mucosal edema and rhinorrhea present. Right sinus exhibits maxillary sinus tenderness. Left sinus exhibits maxillary sinus tenderness. Eyes: EOM are normal. Pupils are equal, round, and reactive to light. Cardiovascular: Normal rate and regular rhythm. Pulmonary/Chest: Effort normal and breath sounds normal. Musculoskeletal: She exhibits no edema. Neurological: She is alert and oriented to person, place, and time. Skin: She is not diaphoretic. ASSESSMENT and PLAN: ICD-9-CM ICD-10-CM 1. Allergic rhinitis 477.9 J30.9 fexofenadine-pseudoephedrine SR 24 hour (JAMES-D 24 HOUR) 180-240 mg tablet 2. Need for prophylactic vaccination and inoculation against influenza V04.81 Z23 INFLUENZA VACCINESPLIT 3+YRS IM documented in this encounter Plan of Treatment Upcoming Encounters Date Type Department Care Team (Late st Contact Info) Description 04/25/2025 8:20 AM CDT Office Visit [facility] - [facility] [address] [place] [phone] Annalisa Christopher MD [address] [place] [address] documented as of this encounter Visit Diagnoses Diagnosis Allergic rhinitis- Primary Allergic rhinitis, cause unspecified Need for prophylactic vaccination and inoculation against influenza documented in this encounter Care Teams Cushion Builder Relationship Specialty Start Date End Date Annalisa Christopher MD [address] [place] [address] PCP - General 07/07/08 documented as of this encounter
--- OUTSIDE RECORDS SUMMARY | 2024-10-06 18:15 | XMS_ITS | Encounter Summary ---
Author Organization [facility] Address [address] [place] [address] Care Team Providers Care Seafood Clerk Name Role Phone Annalisa Christopher MD Primary Care Provider [phone] Encounter Details Date Type Department Care Team (Latest Contact Info) Description 02/01/2011 2:03 PM CDT - 02/01/2011 11:59 PM CDT Hospital Encounter [facility] Support Services S [facility] [address] [place] [address] Douglas Patricio MD [address] [facility] [address] [address] Discharge Disposition: Home or Self [...] Office Visit [facility] - [address] [place] [address] Annalisa Christopher MD [address] [place] [address] [address] [place] [address] documented as of this encounter Procedures Procedure Name Priority Date/Time Associated Diagnosis Comments CHLAMYDIA AND GC, PAP VIAL Routine 02/01/2011 10:43 AM CDT Screening examination for venereal disease CERV/VAG CYTOPATH, SUREPATH W/RFLX HPV Routine 02/01/2011 10:43 AM CDT Routine gynecological examination documented in this encounter Results * CHLAMYDIA AND GC, PAP VIAL (02/01/2011 10:43 AM CDT) CHLAMYDIA TRACHOMATIS DNA NOT DETECTED [facility] Comment:Reference Range: Not Detected GC DNA AMPLIFICATION NOT DETECTED [facility] Comment:Reference Range: Not Detected GC AND CHLAMYDIA PROBE COMMENT See Result Comment [facility] Comment: This test was performed using the Imperator ProbeTec(TM) Chlamydia trachomatis and Neisseria gonorrhoeae Amplified DNA Assays. ? Lab test performed by: [employer] [address] [address] NELSON FRENCH DO Endocervical 02/01/2011 10:4 3 AM CDT 02/01/2011 2:10 PM CDT Comment:ENDOCERVICAL Douglas Patricio MD BODY FLUIDS AND STOO [employer] [facility] CLIA# [id number] [address] [place] [address] * CERV/VAG CYTOPATH, SUREPATH W/RFLX HPV (02/01/2011 10:43 AM CDT) CLINICAL INFORMATION [facility] PREV PAP: 28 10 [facility] LAST MENSTRUAL PERIOD 03 21 11 [facility] PAP INTERP Negative for intraepithelial lesion or malignancy. [facility] Basket Hand Weaver Pap Comment Based on the cytology result, reflex High Risk HPV DNA testing was not performed. [facility] ADEQUACY: Satisfactory for evaluation. Endocervical/trans formation zone component present. [facility] SOURCE Endoc[employer]ix [facility] CYTOTECHNOLOGI ST: MMW, CT(ASCP) [facility] Comment: ? Lab test performed by: [employer] [address] [address] NELSON FRENCH DO PREV BX: Information not provided [facility] REPORT STATUS FINAL [facility] Endocervical 02/01/2011 10:4 3 AM CDT 02/01/2011 2:10 PM CDT Comment:ENDOCERVICAL Douglas Patricio MD PATHOLOGY/CYTOLOGY O RDERABLES Performing Organization Address City/State/[facility] Co de Phone Number [facility] CLIA# [id number] [address] [place] [address] documented in this encounter Visit Diagnoses Diagnosis Routine gynecological examination Screening examination for venereal disease documented in this encounter Care Teams Seafood Clerk Relationship Specialty Start Date End Date Annalisa Christopher MD [address] [place] [address] PCP - General 07/07/08 documented as of this encounter
--- OUTSIDE RECORDS SUMMARY | 2024-10-06 18:15 | XMS_ITS | Encounter Summary ---
Author Organization [facility] Address [address] [place] [address] Care Team Providers Care Batch Tester Name Role Phone Annalisa Christopher MD Primary Care Provider [phone] Reason for Visit * Reason Onset Date Comments Results 11/12/2010 Encounter Details Date Type Department Care Team (Late st Contact Info) Description 11/12/2010 Telephone [facility] Primary Care - [address] [place] [address] Annalisa Christopher MD [address] [place] [address] [address] [place] [address] Results Social History Tobacco Use [...] * Telephone Encounter - Emely Cuadra - 11/12/2010 10:51 AM CST Spoke to pt and will ck mychart ULATING PROCESS INSPECTOR * Telephone Encounter - Annalisa Christopher MD - 11/12/2010 9:54 AM CST Did she look at MyChart? ULATING PROCESS INSPECTOR * Telephone Encounter - Tiana Brothers Husam - 11/12/2010 9:31 AM CIRCULATING PROCESS INSPECTOR RESULTS LABS ULATING PROCESS INSPECTOR documented in this encounter Plan of Treatment Upcoming Encounters Date Type Department Care Team (Late st Contact Info) Description 04/25/2025 8:20 AM CDT Office Visit [facility] - [facility] [address] [facility] [address] [place] [phone] Annalisa Christopher MD [address] [facility] [address] [place] [address] documented as of this encounter Visit Diagnoses Not on filedocumented in this encounter Care Teams Batch Tester Relationship Specialty Start Date End Date Annalisa Christopher MD [address] [facility] [address] [place] [address] PCP - General 07/07/08 documented as of this encounter
--- OUTSIDE RECORDS SUMMARY | 2024-10-06 18:15 | XMS_ITS | Encounter Summary ---
Author Organization [facility] Address [address] [place] [address] Care Team Providers Care Hemstitching Machine Operator Name Role Phone Annalisa Christopher MD Primary Care Provider [phone] Reason for Visit * Reason Comments Sinus Problem headache pressure dr marie Memory Loss pt says she has been under alot of stress and shes starting to forget simple things. Fatigue pt says she is alway s tired Encounter Details Date Type Department Care Team (Late st Contact Info) Description 08/05/2013 10:00 AM CCNP Office Visit [facility] [address] [place] [address] [place] [address] Annalisa Christopher MD [address] [place] [address] [address] [place] [address] Acute sinusitis (Primary Dx); Allergic rhinitis Social History Tobacco Use Types Packs/Day Years [...] Sign Reading Time Taken Comments Blood Pressure 110/74 08/05/2013 10:17 AM CCNP Pulse - - Temperature - - Respiratory Rate - - Oxygen Saturation - - Inhaled Oxygen Concentration - - Weight 83 kg (183 lb) 08/05/2013 10:17 AM CCNP Height 170.2 cm (5' 7 ) 08/05/2013 10:17 AM CCNP Body Mass Index 28.66 08/05/2013 10:17 AM CCNP documented in this encounter Progress Notes * Annalisa Christopher MD - 08/05/2013 10:39 AM CST HISTORY OF PRESENT ILLNESS Fabiana Pryor, a 38 y.o. female. HPI Chief Complaint Patient presents with ??? Sinus Problem headache pressure drainage ??? Memory Loss pt says she has been under alot of stress and shes starting to forget simple things. ??? Fatigue pt says she is always tired - work stress - patient is worried about some vitamin deficiency , she has noted ridges on her nails - sinus pressure, congestion - no wheezing REVIEW OF SYSTEMS Review of Systems Constitutional: Positive for fatigue. Negative for fever and chills. HENT: Positive for congestion, sore throat, postnasal drip and sinus pressure. Respiratory: Negative for cough, shortness of breath and wheezing. Cardiovascular: Negative for chest pain, palpitations and leg swelling. Gastrointestinal: Negative for abdominal pain. PHYSICAL EXAM BP 110/74 Ht 5' 7 (1.702 m) Wt 183 lb (83.008 kg) BMI 28.66 kg/m2 Physical Exam Constitutional: She is oriented [...] and PLAN: (461.9) Acute sinusitis - Plan: methylPREDNISolone (MEDROL DOSPACK) 4 mg Tablets, Dose Pack, amoxicillin (AMOXIL) 875 mg tablet (477.9) Allergic rhinitis - Plan: fluticasone (FLONASE) 50 mcg/spray Eddy, Suspension - patient will come back for labs and PE Start MVI and vit D3 1,000 documented in this encounter Plan of Treatment Upcoming Encounters Date Type Department Care Team (Late st Contact Info) Description 04/25/2025 8:20 AM CDT Office Visit [facility] [address] [place] [address] Annalisa Christopher MD [address] [facility] [address] [place] [address] documented as of this encounter Visit Diagnoses Diagnosis Acute sinusitis- Primary Acute sinusitis, unspecified Allergic rhinitis Allergic rhinitis, cause unspecified documented in this encounter Care Teams Hemstitching Machine Operator Relationship Specialty Start Date End Date Annalisa Christopher MD [address] [facility] [address] [place] [address] PCP - General 07/07/08 documented as of this encounter
--- OUTSIDE RECORDS SUMMARY | 2024-10-06 18:15 | XMS_ITS | Encounter Summary ---
Author Organization [facility] Address [address] [place] [address] Care Team Providers Care Fight Manager Name Role Phone Annalisa Christopher MD Primary Care Provider [phone] Reason for Visit * Reason Comments Post- Care 6 wks c/sec Encounter Details Date Type Department Care Team (Late st Contact Info) Description 10/11/2011 10:00 AM ELECTRICIAN ELEVATOR MAINTENANCE Office Visit [facility] RETAIL ACCOUNT EXECUTIVE - [address] [address] Douglas Patricio MD [address] [place] [address] [place] [phone] care and examination immediately after delivery [...] Sign Reading Time Taken Comments Blood Pressure 112/80 10/11/2011 10:36 AM ELECTRICIAN ELEVATOR MAINTENANCE Pulse - - Temperature - - Respiratory Rate - - Oxygen Saturation - - Inhaled Oxygen Concentration - - Weight 93 kg (205 lb) 10/11/2011 10:36 AM ELECTRICIAN ELEVATOR MAINTENANCE Height 170.2 cm (5' 7 ) 10/11/2011 10:36 AM ELECTRICIAN ELEVATOR MAINTENANCE Body Mass Index 32.11 10/11/2011 10:36 AM ELECTRICIAN ELEVATOR MAINTENANCE documented in this encounter Progress Notes * Douglas Patricio MD - 10/11/2011 10:49 AM CST Fabiana Pryor is a 36 y.o., presenting for a 6 week post-C/S exam. She had a low transverse section for repeat. Since giving , she has done well. No bleeding. Pt is bottle feeding without problems. Coping well with parenting. EXAM Breasts: No masses, skin changes or adenopathy, nipples normal bilaterally. Abdomen: Soft, nontender, no masses. Incision CDI Pelvic: External normal without lesions or discharge, vagina normal, cervix without lesions or discharge, uterus well involuted and nontender, no adnexal masses or tenderness ASSESSMENT Normal exam PLAN Contraception: Wants another mirena, will come in 2 weeks for insertion Resume normal activities and exercise. Self-care discussed F/U visit in 3-4 months, or PRN as necessary TRICIAN ELEVATOR MAINTENANCE documented in this encounter Plan of Treatment Upcoming Encounters Date Type Department Care Team (Late st Contact Info) Description 04/25/2025 8:20 AM CDT Office Visit [facility] Primary Care - [facility] [address] [facility] [address] [place] [address] Annalisa Christopher MD [address] [facility] [address] [place] [address] documented as of this encounter Visit Diagnoses Diagnosis care and examination immediately after delivery- Primary documented in this encounter Care Teams Fight Manager Relationship Specialty Start Date End Date Annalisa Christopher MD [address] [facility] [address] [place] [address] PCP - General 07/07/08 documented as of this encounter
--- OUTSIDE RECORDS SUMMARY | 2024-10-06 18:15 | XMS_ITS | Encounter Summary ---
Author Organization [facility] Address [address] [place] [address] Care Team Providers Care Plastic Mould Maker Name Role Phone Annalisa Christopher MD Primary Care Provider [phone] Reason for Referral * Eval and Treat (Routine) - Closed Specialty Diagnoses / Procedures Referred By Contaviva t Referred To Contact Gastroenterology Diagnoses Rectal bleed Annalisa Christopher MD [address] [place] [address] [address] [place] [address] Avila Landry, DO [address] [address] Referral ID Status Reason Start Date Expiration Date V isits Requested Visits Authorized [id number] Closed CRS To Schedule (STL) 11/09/2011 11/08/2012 3 3 TIC PREPARER Reason for Visit * Reason Comments Flank Pain POSSIBLE KIDNEY INFE CTION Rectal Bleeding SINCE 08/31 Encounter Details Date Type Department Care Team (Late st Contact Info) Description 11/09/2011 9:45 AM CAUSTIC PREPARER [facility] [address] [place] [address] Annalisa Christopher MD [address] [place] [address] Rd [address] [place] [address] UTI (lower urinary tract infection) (Primary Dx); Kidney pain; Rectal bleed Social History Tobacco Use Types Packs/Day Years [...] Reading Time Taken Comments Blood Pressure 118/84 11/09/2011 9:47 AM CAUSTIC PREPARER Pulse - - Temperature - - Respiratory Rate - - Oxygen Saturation - - Inhaled Oxygen Concentration - - Weight 90.7 kg (200 lb) 11/09/2011 9:47 AM CAUSTIC PREPARER Height 170.2 cm (5' 7 ) 11/09/2011 9:47 AM CAUSTIC PREPARER Body Mass Index 31.32 11/09/2011 9:47 AM CAUSTIC PREPARER documented in this encounter Progress Notes * Annalisa Christopher MD - 11/09/2011 10:11 AM CST HISTORY OF PRESENT ILLNESS Fabiana Pryor, a 36 y.o. female. HPI Comments: Also, she has additional complaints of rectal bleeding on/off since August, usuallylasts only 2 days, every 2 weeks or so. She had external hemorrhoids while , but not too severe according to the patient. Never had colonoscopy. Denies constipation, occasional sharp pain with BP. Flank Pain This is a new problem. Episode onset: x 1 week. The problem occurs every several days. Associated with: urinary urgency, frequency. Associated symptoms include hematochezia. Rectal Bleeding Pertinent negatives include no abdominal pain, no chest pain and no coughing. REVIEW OF SYSTEMS Review of Systems Constitutional: Negative. HENT: Negative. Respiratory: Negative for cough, shortness of breath and wheezing. Cardiovascular: Negative for chest pain, palpitations and leg swelling. Gastrointestinal: Positive for hematochezia. Negative for abdominal pain. Genitourinary: Positive for flank pain. PHYSICAL EXAM BP 118/84 Ht 5' 7 (1.702 m) Wt 200 lb (90.719 kg) BMI 31.32 kg/m2 Physical Exam Constitutional: She is oriented to person, place, and time. No distress. HENT: Head: Normocephalic and atraumatic. Eyes: EOM are normal. Pupils are equal, round, and reactive to light. Cardiovascular: Normal rate and regular rhythm. Pulmonary/Chest: Effort normal and breath sounds normal. Musculoskeletal: She exhibits no edema. Neurological: She is alert and oriented to person, place, and time. Skin: She is not diaphoretic. ASSESSMENT and PLAN: 1. UTI (lower urinary tract infection) (599.0) ciprofloxacin (CIPRO) 500 mg Oral tablet 2. Kidney pain (788.0) POC URINALYSIS DIPSTICK NON AUTOMATED 3. Rectal bleed (569.3) AMB REFERRAL TO GASTROENTEROLOGY -colonoscopy referral Stool softener, fluids TIC PREPARER documented in this encounter Plan of Treatment Upcoming Encounters Date Type Department Care Team (Late st Contact Info) Description 04/25/2025 8:20 AM CDT Office Visit [facility] - [address] [place] [address] Annalisa Christopher MD [address] [place] [address] [address] [place] [address] Scheduled Referrals Name Type Priority Associated Diagnoses Order Schedule AMB REFERRAL TO GASTROENTEROLOGY Outpatient Referral Routine Rectal bleed Ordered: 11/09/2011 documented as of this encounter Procedures Procedure Name Priority Date/Time Associated Diagnosis Comments POC URINALYSIS DIPSTICK NON AUTOMATED Routine 11/09/2011 10:00 AM CAUSTIC PREPARER Kidney pain documented in this encounter Results * (ABNORMAL) POC URINALYSIS DIPSTICK NON AUTOMATED (11/09/2011 10:00 AM CAUSTIC PREPARER) COLOR UA YELLOW [facility] CLARITY UA CLEAR [facility] SPECIFIC GRAVITY UA 1.030 1.001 - 1.035 [facility] PH UA 6.0 5 - 8 [facility] LEUKOCYTE ESTERASE UA 3+(A) NEG [facility] NITRITE UA Negative [facility]G [facility] PROTEIN UA Trace NEG [facility] GLUCOSE UA Negative (none) [facility] KETONES UA Negative (none) [facility] UROBILINOGEN UA Normal (none) mg/dL [facility] BILIRUBIN UA Negative NEG [facility] BLOOD UA Negative (none) [facility] Urine specimen (specimen) 11/09/2011 10:00 AM CAUSTIC PREPARER Annalisa Christopher MD POINT OF CARE TESTIN G [facility] documented in this encounter Visit Diagnoses Diagnosis UTI (lower urinary tract infection)- Primary Urinary tract infection, site not specified Kidney pain Renal colic Rectal bleed Hemorrhage of rectum and anus documented in this encounter Care Teams Plastic Mould Maker Relationship Specialty Start Date End Date Annalisa Christopher MD [address] [facility] [address] [place] [address] PCP - General 07/07/08 documented as of this encounter
--- OUTSIDE RECORDS SUMMARY | 2024-10-06 18:15 | XMS_ITS | Encounter Summary ---
Author Organization [facility] Address [address] [place] [address] Care Team Providers Care Integrated Circuit Design Engineer Name Role Phone Annalisa Christopher MD Primary Care Provider [phone] Reason for Visit * Reason Onset Date Comments Medication Refill 01/12/2015 Encounter Details Date Type Department Care Team (Late st Contact Info) Description 01/12/2015 Refill [facility] - [address] [place] [address] Annalisa Christopher MD [address] [place] [address] [place] [address] Social History Tobacco Use Types Packs/Day [...] * Telephone Encounter - Emely Cuadra - 01/12/2015 12:16 PM CDT GRIFFIN 06/23/14 MK documented in this encounter Plan of Treatment Upcoming Encounters Date Type Department Care Team (Late st Contact Info) Description 04/25/2025 8:20 AM CDT Office Visit [address] [place] [address] Annalisa Christopher MD [address] [place] [address] documented as of this encounter Visit Diagnoses Not on filedocumented in this encounter Care Teams Integrated Circuit Design Engineer Relationship Specialty Start Date End Date Annalisa Christopher MD [address] [place] [address] PCP - General 07/07/08 documented as of this encounter
--- OUTSIDE RECORDS SUMMARY | 2024-10-06 18:15 | XMS_ITS | Encounter Summary ---
Author Organization [facility] Address [address] [place] [address] Care Team Providers Care Cheese Cooker Name Role Phone Annalisa Christopher MD Primary Care Provider [phone] Encounter Details Date Type Department Care Team (Late st Contact Info) Description 07/13/2012 Abstract [facility] - [address] [place] [address] Annalisa Christopher MD [address] [place] [address] [address] [place] [address] Social History Tobacco Use Types [...] 04/25/2025 8:20 AM CDT Office Visit [facility] [address] [place] [address] [address] [place] [address] Annalisa Christopher MD [address] [place] [address] [address] [place] [address] documented as of this encounter Visit Diagnoses Not on filedocumented in this encounter Care Teams Cheese Cooker Relationship Specialty Start Date End Date Annalisa Christopher MD [address] [facility] [address] [place] [address] PCP - General 07/07/08 documented as of this encounter
--- OUTSIDE RECORDS SUMMARY | 2024-10-06 18:15 | XMS_ITS | Encounter Summary ---
Author Organization [facility] Address [address] [place] [address] Care Team Providers Care Cullet Trucker Name Role Phone Annalisa Christopher MD Primary Care Provider [phone] Reason for Visit * Reason Onset Date Comments Upper Respiratory Symptoms 05/22/2014 Encounter Details Date Type Department Care Team (Late st Contact Info) Description 05/22/[address] [facility] Primary Care - [address] [place] [address] Annalisa Christopher MD [address] [place] [address] [address] [place] [address] Upper Respiratory Symptoms Social History [...] * Telephone Encounter - Sanjana Tompkins - 05/22/2014 1:39 PM CDT Called pt script sent to pharmacy. * Telephone Encounter - Annalisa Christopher MD - 05/22/2014 1:32 PM CDT Z-elizabeth sent * Telephone Encounter - Emely Cuadra - 05/22/2014 8:43 AM CDT Sinus pressure, clogged head, pressure in ears, no fever, headache, no cough x 1.5wks Not able to blow anything out. Taking aleve sinus cold. Asking for rx documented in this encounter Plan of Treatment Upcoming Encounters Date Type Department Care Team (Late st Contact Info) Description 04/25/2025 8:20 AM CDT Office Visit [facility] Primary Care - [facility] [address] [facility] [address] [place] [address] Annalisa Christopher MD [address] [facility] [address] [place] [address] documented as of this encounter Visit Diagnoses Not on filedocumented in this encounter Care Teams Cullet Trucker Relationship Specialty Start Date End Date Annalisa Christopher MD [address] [facility] [address] [place] [address] PCP - General 07/07/08 documented as of this encounter
--- OUTSIDE RECORDS SUMMARY | 2024-10-06 18:16 | XMS_ITS | Encounter Summary ---
Author Organization [facility] Address [address] [place] [address] Care Team Providers Care Brewery Cellar Worker Name Role Phone Annalisa Christopher MD Primary Care Provider [phone] Reason for Visit * Reason Comments Well Woman Exam Remove IUD Encounter Details Date Type Department Care Team (Latest Contact Info) Description 10/22/2009 4:00 PM DIRECTOR PUBLIC SERVICE Office Visit [facility] AUTOMATION ENGINEER - [address] [address] Douglas Patricio MD [address] [place] [address] [place] [address] Routine Gynecological Examination (Primary Dx) Social History Tobacco Use Types Packs/Day Years Used Date Smoking Tobacco: Never Alcohol Use Standard Drinks/Week Comments Yes 0 (1 standard drink = 0.6 oz pur e alcohol) Sex and Gender Information Value Date Recorded Sex Assigned at Not on file Gender Identity Not on file Sexual Orientation Not on file documented as of this encounter Last Filed Vital Signs Vital Sign Reading Time Taken Comments Blood Pressure 130/80 10/22/2009 3:53 PM DIRECTOR PUBLIC SERVICE Pulse - - Temperature - - Respiratory Rate - - Oxygen Saturation - - Inhaled Oxygen Concentration - - Weight 74.4 kg (164 lb) 10/22/2009 3:53 PM DIRECTOR PUBLIC SERVICE Height 170.2 cm (5' 7 ) 10/22/2009 3:53 PM DIRECTOR PUBLIC SERVICE Body Mass Index 25.69 10/22/2009 3:53 PM DIRECTOR PUBLIC SERVICE documented in this encounter Progress Notes * Douglas Patricio MD - 10/22/2009 4:27 PM CST SUBJECTIVE Fabiana Briggs is a 34 y.o. female presenting for annual Well Woman exam. Last pap smear: 2008 Pt has never had a mammogram. Patient's last menstrual period was 08/22/2009. GynHx: wants to conceive this summer; to remove Mirena today History Social History ??? Marital Status: Single Spouse Name: N/A Number of Children: N/A ??? Years of Education: N/A Occupational History ??? Not on file. Social History Main Topics ??? Tobacco Use: Never ??? Alcohol Use: Yes ??? Drug Use: No ??? Sexually Active: Yes -- Male partner(s) Other Topics Concern ??? Not on file Social History Narrative ??? No narrative on file ROS Feeling well. No dyspnea or chest pain on exertion. No abdominal pain, change in bowel habits. No excessive fatigue or significant changes in weight. No urinary tract symptoms. GROUNDS MANAGER ROS: normal menses, no abnormal bleeding, pelvic pain or discharge, no breast pain or new or enlarging lumps on self exam. OBJECTIVE BP 130/80 Ht 5' 7 (1.702 m) Wt 164 lb (74.39 kg) LMP 08/22/2009 General: The patient appears well, alert, and [...] external genitalia, vulva, vagina, cervix, uterus and adnexa, Mirena removed intact ASSESSMENT well woman IUD removed PLAN Orders Placed This Encounter ??? Cerv/vag cytopath, surepath w/rflx hpv pap smear return annually or prn preconceptional counseling (, C/Sx1, stillbirth at term[cord accident] sabx2) CTOR PUBLIC SERVICE documented in this encounter Plan of Treatment Upcoming Encounters Date Type Department Care Team (Late st Contact Info) Description 04/25/2025 8:20 AM CDT Office Visit [facility] Primary Care - [facility] [address] [place] [address] Annalisa Christopher MD [address] [facility] [address] [place] [address] documented as of this encounter Procedures Procedure Name Priority Date/Time Associated Diagnosis Comments CERV/VAG CYTOPATH, SUREPATH W/RFLX HPV Routine 10/22/2009 3:58 PM DIRECTOR PUBLIC SERVICE Routine Gynecological Examination documented in this encounter Results * CERV/VAG CYTOPATH, SUREPATH W/RFLX HPV (10/22/2009 3:58 PM DIRECTOR PUBLIC SERVICE) REPORT STATUS FINAL [facility] CLINICAL INFORMATION [facility] Comment:HEALTHY LAST MENSTRUAL PERIOD [facility] [employer] [facility] Comment:08 22 09 PREV PAP: [facility] [employer] [facility] Comment:01 22 09 WNL PREV BX: [facility] [employer] [facility] Comment:Information not prov ided SOURCE [facility] Comment:Endocervix ADEQUACY: [facility] [employer] [facility] Comment: Satisfactory for evaluation. Endocervical/transformation zone component present. INTERPRETATION [facility] Comment:Negative for intraep ithelial lesion or malignancy. COMMENT [facility] Comment: Based on the cytology result, reflex High Risk HPV DNA testing was not performed. ? METAL ROOM DENTAL TECHNICIAN: Scary Mommy [facility] Comment: TMK, CT(ASCP) Test Performed at: [facility] [address] [place], [place] ??[address] MURRAY VOGEL MD Endocervical 10/22/2009 3:58 PM DIRECTOR PUBLIC SERVICE Douglas Patricio MD PATHOLOGY/CYTOLOGY O RDERABLES INTERFACE SYSTEM Refer to clinic/hospital department [facility] [address] [place] [address] documented in this encounter Visit Diagnoses Diagnosis Routine gynecological examination- Primary documented in this encounter Care Teams Brewery Cellar Worker Relationship Specialty Start Date End Date Annalisa Christopher MD [address] [place] [address] PCP - General 07/07/08 documented as of this encounter
--- OUTSIDE RECORDS SUMMARY | 2024-10-06 18:16 | XMS_ITS | Encounter Summary ---
Author Organization [facility] Address [address] [place] [address] Care Team Providers Care Carpenter'S Helper Name Role Phone Annalisa Christopher MD Primary Care Provider [phone] Encounter Details Date Type Department Care Team (Latest Contact Info) Description 11/29/2003 Inpatient Historical [facility] PAT[facility] IN [facility] BED Gavin Hadley MD [address] [place] [address] MALPOSITION NEC-DELIVER (Primary Dx) Social History Tobacco Use Types [...] Description 04/25/2025 8:20 AM CDT Office Visit [facility] Primary Care - [facility] [address] [facility] [address] [place] [address] Annalisa Christopher MD [address] [place] [address] [address] [place] [address] documented as of this encounter Visit Diagnoses Diagnosis Other specified malposition or malpresentation of fetus, delivered- Primary documented in this encounter Care Teams Carpenter'S Helper Relationship Specialty Start Date End Date Annalisa Christopher MD [address] [facility] [address] [place] [address] PCP - General 07/07/08 documented as of this encounter
--- OUTSIDE RECORDS SUMMARY | 2024-10-06 18:16 | XMS_ITS | Encounter Summary ---
Author Organization [facility] Address [address] [place] [address] Care Team Providers Care Instrumentation Engineer Name Role Phone Annalisa Christopher MD Primary Care Provider [phone] Encounter Details Date Type Department Care Team (Late st Contact Info) Description 08/24/2007 Outpatient Historical [facility] [address] [facility] [place] [address] Hasmukh Lucas MD [address] [place] [address] Social History Tobacco Use Types Packs/Day Years Used Date Smoking Tobacco: Never Assessed Sex and Gender Information Value Date Recorded Sex Assigned at Not on file Gender Identity Not on file Sexual Orientation Not on file documented as of this encounter Plan of Treatment Upcoming Encounters Date Type Department Care Team (Late st Contact Info) Description 04/25/2025 8:20 AM CDT Office Visit [facility] [address] [facility] [address] [place] [address] Annalisa Christopher MD [address] [place] [address] documented as of this encounter Visit Diagnoses Not on filedocumented in this encounter Care Teams Instrumentation Engineer Relationship Specialty Start Date End Date Annalisa Christopher MD [address] [facility] [address] [place] [address] PCP - General 07/07/08 documented as of this encounter
--- OUTSIDE RECORDS SUMMARY | 2024-10-06 18:16 | XMS_ITS | Encounter Summary ---
Author Organization [facility] Address [address] [place] [address] Care Team Providers Care Program/Music Director Name Role Phone Annalisa Christopher MD Primary Care Provider [phone] Encounter Details Date Type Department Care Team (Late st Contact Info) Description 11/29/2003 Outpatient Historical [facility] COMMUNICATION CENTER OPERATOR - [facility] [address] [facility] [address] [place] [address] Gavin Hadley MD [address] [place] [address] Social History Tobacco Use Types Packs/Day Years [...] Visit [facility] Primary Care - [facility] [address] [place] [address] Annalisa Christopher MD [address] [place] [address] documented as of this encounter Visit Diagnoses Not on filedocumented in this encounter Care Teams Program/Music Director Relationship Specialty Start Date End Date Annalisa Christopher MD [address] [place] [address] PCP - General 07/07/08 documented as of this encounter
--- OUTSIDE RECORDS SUMMARY | 2024-10-06 18:16 | XMS_ITS | Encounter Summary ---
Author Organization [facility] Address [address] [place] [address] Care Team Providers Care Insight Director Name Role Phone Annalisa Christopher MD Primary Care Provider [phone] Reason for Visit * Reason Onset Date Comments Medication Refill 05/19/2010 Encounter Details Date Type Department Care Team (Late st Contact Info) Description 05/19/2010 Refill [facility] Primary Care - [address] [place] [address] Annalisa Christopher MD [address] [place] [address] [place] [address] Social History Tobacco Use Types Packs/Day [...] * Telephone Encounter - Tiana Brothers - 05/19/2010 5:25 PM CDT Called rx to pharmacy and spoke with patient. * Telephone Encounter - Annalisa Christopher MD - 05/19/2010 5:21 PM CDT Please call it in, tell patient 2 mg not available, will have 5mg and she can take 1/2 pill * Telephone Encounter - Tiana Brothers - 05/19/2010 3:14 PM CDT ON D/C LIST documented in this encounter Plan of Treatment Upcoming Encounters Date Type Department Care Team (Late st Contact Info) Description 04/25/2025 8:20 AM CDT Office Visit [facility] Primary Care - [facility] [address] [facility] [address] [place] [address] Annalisa Christopher MD [address] [place] [address] documented as of this encounter Visit Diagnoses Not on filedocumented in this encounter Care Teams Insight Director Relationship Specialty Start Date End Date Annalisa Christopher MD [address] [place] [address] PCP - General 07/07/08 documented as of this encounter
--- OUTSIDE RECORDS SUMMARY | 2024-10-06 18:16 | XMS_ITS | Encounter Summary ---
Author Organization [facility] Address [address] [place] [address] Care Team Providers Care Emergency Room Nurse Name Role Phone Annalisa Christopher MD Primary Care Provider [phone] Encounter Details Date Type Department Care Team (Late st Contact Info) Description 11/18/2003 Outpatient Historical [facility] MECHANICAL ENGINEERING DRAFTSPERSON - [facility] [address] [facility] [address] [place] [address] Gavin Hadley MD [address] [place] [address] Social History Tobacco Use Types [...] AM CDT Office Visit [facility] Primary [facility] - [facility] [address] [place] [address] Annalisa Christopher MD [address] [place] [address] documented as of this encounter Visit Diagnoses Not on filedocumented in this encounter Care Teams Emergency Room Nurse Relationship Specialty Start Date End Date Annalisa Christopher MD [address] [place] [address] PCP - General 07/07/08 documented as of this encounter
--- OUTSIDE RECORDS SUMMARY | 2024-10-06 18:16 | XMS_ITS | Encounter Summary ---
Author Organization [facility] Address [address] [place] [address] Care Team Providers Care Sales Compensation Analyst Name Role Phone Annalisa Christopher MD Primary Care Provider [phone] Encounter Details Date Type Department Care Team (Late st Contact Info) Description 12/27/2007 Outpatient Historical [facility] [address] [place] [address] Annalisa Christopher MD [address] [place] [address] [address] [place] [address] Social History Tobacco Use Types [...] 04/25/2025 8:20 AM CDT Office Visit [facility] [address] [place] [address] Annalisa Christopher MD [address] [place] [address] [address] [place] [address] documented as of this encounter Visit Diagnoses Not on filedocumented in this encounter Care Teams Sales Compensation Analyst Relationship Specialty Start Date End Date Annalisa Christopher MD [address] [place] [address] PCP - General 07/07/08 documented as of this encounter
--- OUTSIDE RECORDS SUMMARY | 2024-10-06 18:16 | XMS_ITS | Encounter Summary ---
Author Organization [facility] Address [address] [place] [address] Care Team Providers Care Custom Bookbinder Name Role Phone Annalisa Christopher MD Primary Care Provider [phone] Reason for Visit * Reason Comments Ultrasound Encounter Details Date Type Department Care Team (Late st Contact Info) Description 09/07/2010 10:20 AM SENIOR WATER/WASTEWATER ENGINEER Office Visit [facility] SHIFT SUPERVISOR RN - Medical [facility] [address] [facility] [address] [phone] Griselda Alvarez Missed ; Second trimester bleeding Social History Tobacco Use Types Packs/Day Years Used Date Smoking Tobacco: Never Smokeless Tobacco: Never Alcohol Use Standard Drinks/Week Comments Yes 0 (1 standard drink = 0.6 oz pur e alcohol) Comments Yes Sex and Gender Information Value Date Recorded Sex Assigned at Not on file Gender Identity Not on file Sexual Orientation Not on file documented as of this encounter Progress Notes * Phuong Chamorro - 09/07/2010 10:50 AM CST Patient seen in office today and Ultrasound exam performed. OR WATER/WASTEWATER ENGINEER documented in this encounter Plan of Treatment Upcoming Encounters Date Type Department Care Team (Late st Contact Info) Description 04/25/2025 8:20 AM CDT Office Visit [facility] Primary Care - [facility] [address] [place] [address] [address] [place] [address] Annalisa Christopher MD [address] [place] [address] documented as of this encounter Procedures Procedure Name Priority Date/Time Associated Diagnosis Comments US OB TRANSVAGINAL Routine 09/07/2010 Missed Second trimester bleeding documented in this encounter Results * US OB TRANSVAGINAL (09/07/2010) Anatomical Region Laterality Modality Pelvis Other Impressions 09/07/2010 Fabiana Pryor is a 35 y.o. is here for an Ultrasound Reason for Ultrasound exam: ??Viability/first trimester bleeding Intrauterine : ??present Gestational Sac: present Heart Motion: not seen Single fetus with CRL= 2.22 cm. Gestational age this ultrasound: 8w6d EDC by this ultrasound: 04/13/2011 (03/12/2011 by LMP) Repeat ultrasound prn Findings c/w missed Ab Douglas Patricio MD US ORDERABLES documented in this encounter Visit Diagnoses Diagnosis Missed Second trimester bleeding Unspecified antepartum hemorrhage, unspecified as to episode of care documented in this encounter Care Teams Custom Bookbinder Relationship Specialty Start Date End Date Annalisa Christopher MD [address] [place] [address] PCP - General 07/07/08 documented as of this encounter
--- OUTSIDE RECORDS SUMMARY | 2024-10-06 18:16 | XMS_ITS | Encounter Summary ---
Author Organization [facility] Address [address] [place] [address] Care Team Providers Care Agronomy Advisor Name Role Phone Annalisa Christopher MD Primary Care Provider [phone] Reason for Visit * Reason Onset Date Comments Erroneous encounter-disregard 07/07/2008 Encounter Details Date Type Department Care Team (Late Contact Info) Description 07/07/2008 Telephone [facility] Primary Care - [address] [address] Kacey Potter MD NO ADDRESS ON FILE Erroneous encounter-disregard Social History Tobacco Use Types [...] * Telephone Encounter - Tiana Brothers - 07/07/2008 10:44 AM CDT HAVING DIZZY SPELLS IF SHE TURNS HEAD TO LFT OR RT--COUGHING, TAKING ZYRTEC, CONGESTION NASAL, SINUS , --PER PT NO OTHER SX-- A user error has taken place: encounter opened in error, closed for administrative reasons. documented in this encounter Plan of Treatment Upcoming Encounters Date Type Department Care Team (Late Contact Info) Description 04/25/2025 8:20 AM CDT Office Visit [facility] Primary Care - [facility] [address] [place] [address] Annalisa Christopher MD [address] [place] [address] documented as of this encounter Visit Diagnoses Not on filedocumented in this encounter Care Teams Agronomy Advisor Relationship Specialty Start Date End Date Annalisa Christopher MD [address] [place] [address] PCP - General 07/07/08 documented as of this encounter
--- OUTSIDE RECORDS SUMMARY | 2024-10-06 18:16 | XMS_ITS | Encounter Summary ---
Author Organization [facility] Address [address] [place] [address] Care Team Providers Care Testing Lead Name Role Phone Annalisa Christopher MD Primary Care Provider [phone] Reason for Visit * Reason Onset Date Comments Procedure 09/07/2010 suction d&c Encounter Details Date Type Department Care Team (Late st Contact Info) Description 09/07/2010 Telephone [facility] ENTRY PROCESSOR - Medical [address] [address] Douglas Patricio MD [address] [place] [phone] Procedure (suction d&c) Social History Tobacco Use Types Packs/Day Years [...] Miscellaneous Notes * Telephone Encounter - Margaret Cain - 09/07/2010 1:24 PM CST Sp with pt while in the office, reviewed surgery info; pt verbalized understanding. Gave letter to pt while in the office. Pt to call the office with any questions/concerns and if letter is not rec'd; questions answered. DM notified. JR CLOCKS REPAIRER * Telephone Encounter - Margaret Cain - 09/07/2010 1:23 PM CST PROVIDER: Sheng NAME: Fabiana Pryor : 1975 AD[address]: [address] [place] [address] HOME #: [phone] CELL #: [phone] WORK #: PROCEDURE/CODE: Suction d&c 33010 DIAGNOSIS/CODE: Missed AB 632 PROCEDURE LOCATION: sj PROCEDURE DATE / TIME: 09/08/10 @ 3:30pm LENGTH OF PROCEDURE: 30 mins CONFIRMATION #: [id number] rachel Swanson OUTPT / SDA / 23 HOUR GENERAL / LOCAL MAC / IV SED INSURANCE COMPANY: [facility] ID # / GROUP #: [id number] / [id number] INSURANCE PHONE #: [phone] PRECERT: Submitted online. SP WITH: DATE/TIME: 09/07/10 BENEFITS: Printed from website. SP WITH: DATE/TIME: 09/07/10 PT INFORMED: [x] SHEET TO INS DEPART: [x] IN COMPUTER: [x] LETTER TO PT: [x] IN BOOK: [x] SHARED DRIVE: [x] POST OP DATE/TIME: [09/23/10 @ 1:30pm] ORDERS FAXED [x] CLOCKS REPAIRER * Telephone Encounter - Margaret Cain - 09/07/2010 12:56 PM CST Per DM, to schedule this procedure tomorrow afternoon. CLOCKS REPAIRER documented in this encounter Plan of Treatment Upcoming Encounters Date Type Department Care Team (Late st Contact Info) Description 04/25/2025 8:20 AM CDT Office Visit [facility] Care - [address] [place] [address] Annalisa Christopher MD [address] [place] [address] [address] [place] [address] documented as of this encounter Visit Diagnoses Not on filedocumented in this encounter Care Teams Testing Lead Relationship Specialty Start Date End Date Annalisa Christopher MD [address] [place] [address] PCP - General 07/07/08 documented as of this encounter
--- OUTSIDE RECORDS SUMMARY | 2024-10-06 18:16 | XMS_ITS | Encounter Summary ---
Author Organization [facility] Address [address] [place] [address] Care Team Providers Care Washery Boss Name Role Phone Annalisa Christopher MD Primary Care Provider [phone] Encounter Details Date Type Department Care Team (Latest Contact Info) Description 07/15/2010 4:27 PM CDT - 07/15/2010 11:59 PM CDT Hospital Encounter [facility] [address] [address] Douglas Patricio MD [address] [place] [address] Discharge Disposition: Home or Self Care [...] [facility] Primary Care - [address] [place] [address] Annalisa Christopher MD [address] [place] [address] [address] [place] [address] documented as of this encounter Procedures Procedure Name Priority Date/Time Associated Diagnosis Comments HIV DETECTION W/REFLX CONFIRMATION Routine 07/15/2010 4:41 PM CDT TSH REFLEXIVE Routine 07/15/2010 4:41 PM CDT examination or test, positive result HEPATITIS B SURFACE ANTIGEN Routine 07/15/2010 4:41 PM CDT RUBELLA IGG Routine 07/15/2010 4:41 PM CDT CBC WITH DIFFERENTIAL Routine 07/15/2010 4:41 PM CDT PROGESTERONE Routine 07/15/2010 4:41 PM CDT examination or test, positive result RPR Routine 07/15/2010 4:41 PM CDT OBSTETRIC PANEL Routine 07/15/2010 4:41 PM CDT examination or test, positive result HCG QUANTITATIVE, BLOOD Routine 07/15/2010 4:41 PM CDT examination or test, positive result BLOOD BANK ANTIBODY SCREEN Routine 07/15/2010 4:30 PM CDT TYPE AND SCREEN, Routine 07/15/2010 12:00 AM CDT documented in this encounter Results * (ABNORMAL) CBC WITH DIFFERENTIAL (07/15/2010 4:41 PM CDT) WBC 6.3 4.0 - 9.8 K/uL [facility] RBC 4.27 3.90 - 4.90 M/uL [facility] HEMOGLOBIN 12.8 11.8 - 14.8 g/dL [facility] HEMATOCRIT 38.8 35.5 - 44.0 % [facility] MCV 90.9 82.0 - 99.0 fL [facility] MCH 30.0 27.2 - 32.6 pg [facility] MCHC 33.0 31.5 - 35.5 % [facility] PLATELETS 247 140 - 350 K/uL [facility] MPV 10.8 9.3 - 12.4 fL [facility] RDW 13.3 11.5 - 14.5 % [facility] RDW-STDEV 43.8 37.1 - 48.7 fL [facility] NEUTROPHILS 64 45 - 70 % [facility] LYMPHOCYTES 18 16 - 45 % [facility] MONOCYTES 16(H) 3 - 13 % [facility] EOSINOPHILS 1 0 - 7 % [facility] BASOPHILS 0 0 - 2 % [facility] NEUTROPHIL ABSOLUTE 4.06 1.90 - 7.00 K/uL [facility] LYMPHOCYTE ABSOLUTE 1.15 0.70 - 4.50 K/uL [facility] MONOCYTE ABSOLUTE 1.03 0.10 - 1.30 K/uL [facility] EOSINOPHIL ABSOLUTE 0.07 0.00 - 0.70 K/uL [facility] BASOPHILS ABSOLUTE 0.01 0.00 - 0.20 K/uL [facility] Blood specimen (specimen) 07/15/2010 4:41 PM CDT 07/15/2010 10:50 PM CDT Douglas Patricio MD HEMATOLOGY ORDERABLE S [facility] CLIA# [id number] [address] [place], [place] [address] * HIV ANTIBODY W/REFLX CONFIRMATION (07/15/2010 4:41 PM CDT) HIV-1 AND 2 ABS NON-REACTI VE NON-REACT YOVANY [facility] Comment: A Nonreactive HIV-1/2 antibody result does not exclude HIV infection since the time frame for seroconversion is variable. If acute HIV infection is suspected, antibody retesting and nucleic acid amplification (HIV DNA/RNA) testing is recommended. ? Lab test performed by: [employer] [place] [address] [address] [facility] [place] [address] NELSON FRENCH DO,MPH Blood specimen (specimen) 07/15/2010 4:41 PM CDT 07/15/2010 10:51 PM CDT Douglas Patricio MD CHEMISTRY ORDERABLES Performing Organization Address [facility] de Phone Number [facility] CLIA# [id number] [address] [facility] [place] [address] * HEPATITIS B SURFACE ANTIGEN (07/15/2010 4:41 PM CDT) Pathologist [facility] HEPATITIS B SURFACE AG NON-REACTI VE NON-REACT YOVANY [facility] Comment: ? Lab test performed by: [employer] [place] [address] [address] [employer] [place] [address] NELSON FRENCH DO,MPH Blood specimen (specimen) 07/15/2010 4:41 PM CDT 07/15/2010 10:51 PM CDT Douglas Patricio MD CHEMISTRY ORDERABLES Performing Organization Address [facility] de Phone Number [facility] CLIA# [id number] [address] [place] [place] [address] * RUBELLA IGG (07/15/2010 4:41 PM CDT) RUBELLA IGG [address] [facility] Comment: Index ?Interpretation ? < or = 0.90 ?Negative 0.91-1.09 ?Equivocal > or = 1.10 ?Positive The presence of rubella IgG antibody suggests immunization or past or current infection with rubella virus. ? Lab test performed by: [employer] [place] [address] [place] [address] NELSON FRENCH DO,MPH Blood specimen (specimen) 07/15/2010 4:41 PM CDT 07/15/2010 10:51 PM CDT Douglas Patricio MD CHEMISTRY ORDERABLES Performing Organization Address [facility] de Phone Number [facility] CLIA# [id number] [address] [facility] [place] [address] * RPR (07/15/2010 4:41 PM CDT) [facility] RPR NON-REACTI VE NON-REACT YOVANY [facility] Comment: ? Lab test performed by: [employer] [address] [facility] [place] [place] [address] NELSON FRENCH DO,MPH Blood specimen (specimen) 07/15/2010 4:41 PM CDT 07/15/2010 10:51 PM CDT Douglas Patricio MD CHEMISTRY ORDERABLES Performing Organization Address [facility] de Phone Number [facility] CLIA# [id number] [address] [place] [place] [address] * TSH REFLEXIVE (07/15/2010 4:41 PM CDT) [facility] TSH 0.63 0.27 - 4.20 uU/mL [facility] Blood specimen (specimen) 07/15/2010 4:41 PM CDT 07/15/2010 10:51 PM CDT Douglas Patricio MD CHEMISTRY ORDERABLES Performing Organization Address [facility] de Phone Number [facility] CLIA# [id number] [address] [place] [address] * PROGESTERONE (07/15/2010 4:41 PM CDT) PROGESTERONE 13.9 ng/mL [facility] Comment: Progesterone Reference Range: ?Female: Normally Menstruating Female ? Follicular Phase ?0.2 - 1.5 ??ng/mL ? Ovulation Phase ? 0.8 - 3.0 ??ng/mL ? Luteal Phase ?1.7 - 27.0 ng/mL ? Postmenopausal ?0.1 - 0.8 ??ng/mL No Pediatric Reference Range Available. Blood specimen (specimen) 07/15/2010 4:41 PM CDT 07/15/2010 10:51 PM CDT Douglas Patricio MD CHEMISTRY ORDERABLES Performing Organization Address [facility] de Phone Number [facility] CLIA# [id number] [address] [place] [address] * OBSTETRIC PANEL (07/15/2010 4:41 PM CDT) COMMENT See Additional Orderables [facility] Blood specimen (specimen) 07/15/2010 4:41 PM CDT 07/15/2010 10:51 PM CDT Douglas Patricio MD CHEMISTRY ORDERABLES Performing Organization Address [facility] de Phone Number [facility] CLIA# [id number] [address] [place] [address] * (ABNORMAL) HCG QUANTITATIVE, BLOOD (07/15/2010 4:41 PM CDT) HCG QUANT, BLOOD 7,897(H) 0 - 5 mIU/mL [facility] Comment: Result of 5 - 25 mIU/mL is indeterminant for , repeat of test recommemded in 48 hours. Reference Range: Gestational Age: 3 ??Weeks ?5.8 - 71.2 ?mIU/mL 4 ??Weeks ?9.5 - 750 ? mIU/mL 5 ??Weeks ?217 - 9572 ?mIU/mL 6 ??Weeks ?158 - 31,795 ?mIU/mL [...] 12,039 - 70,971 ?mIU/mL 16 Weeks ? 9073 - 56,451 ?mIU/mL 17 Weeks ? 6308 - 20,868 ?mIU/mL 18 Weeks ? 8099 - 58,176 ?mIU/mL Heterophile antibodies and other interfering substances in the serum of some patients may cause a false-positive result in this assay. ??Before making a diagnosis of malignancy or etopic ,the result of this test should be confirmed with a urine HCG test and correlated with other clinical evidence. Blood specimen (specimen) 07/15/2010 4:41 PM CDT 07/15/2010 10:51 PM CDT Douglas Patricio MD CHEMISTRY ORDERABLES Performing Organization Address [facility] de Phone Number [facility] CLIA# [id number] [address] [place] [place] [address] * ANTIBODY SCREEN (07/15/2010 4:30 PM CDT) ANTIBODY SCREEN Negative [facility] 07/15/2010 4:30 PM CDT Douglas Patricio MD BLOOD BANK ORDERABLE S Performing Organization Address [facility] Phone Number INTERFACE SYSTEM Refer to clinic/hospital department [facility] CLIA# [id number] [address] [place] [address] * TYPE AND SCREEN, (07/15/2010 12:00 AM CDT) HISTORY CHECK History Checked [facility] ABO/RH TYPE B Positive [facility] Blood specimen (specimen) 07/15/2010 07/15/2010 10:51 PM CDT Douglas Patricio MD BLOOD BANK ORDERABLE S Performing Organization Address [facility] Phone Number INTERFACE SYSTEM Refer to clinic/hospital department [facility] CLIA# [id number] [address] [place] [address] documented in this encounter Visit Diagnoses Diagnosis examination or test, positive result documented in this encounter Care Teams Washery Boss Relationship Specialty Start Date End Date Annalisa Christopher MD [address] [facility] [address] [place] [address] PCP - General 07/07/08 documented as of this encounter
--- OUTSIDE RECORDS SUMMARY | 2024-10-06 18:16 | XMS_ITS | Encounter Summary ---
Author Organization [facility] Address [address] [place] [address] Care Team Providers Care Civil Designer Name Role Phone Annalisa Christopher MD Primary Care Provider [phone] Reason for Visit * Reason Comments Initial Visit Encounter Details Date Type Department Care Team (Latest Contact Info) Description 07/15/2010 3:30 PM CDT Initial [facility] TAPROOM ATTENDANT - [address] [address] Douglas Patricio MD [address] [place] [address] [place] [phone] examination or test, positive result (Primary Dx); Screening examination for venereal disease Social History Tobacco Use Types Packs/Day Years [...] Reading Time Taken Comments Blood Pressure 128/80 07/15/2010 3:50 PM CDT Pulse - - Temperature - - Respiratory Rate - - Oxygen Saturation - - Inhaled Oxygen Concentration - - Weight 78.9 kg (174 lb) 07/15/2010 3:50 PM CDT Height - - Body Mass Index 27.25 10/22/2009 3:53 PM FOOD PROCESSING 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 MANAGER documented in this encounter Progress Notes * Douglas Patricio MD - 07/16/2010 9:22 AM CDT Confirmation of ; reviewed history, significant for prior 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), subsequent primary elective CS; desires repeat CS; reviewed AMA, briefly discussed testing options; get labs and US documented in this encounter Plan of Treatment Upcoming Encounters Date Type Department Care Team (Late st Contact Info) Description 04/25/2025 8:20 AM CDT Office Visit [facility] Primary Care - [facility] [address] [facility] [address] [place] [address] Annalisa Christopher MD [address] [facility] [address] [place] [address] documented as of this encounter Procedures Procedure Name Priority Date/Time Associated Diagnosis Comments POC , URINE Routine 07/15/2010 3:51 PM CDT examination or test, positive result documented in this encounter Results * TSH REFLEXIVE (07/15/2010 4:41 PM CDT) TSH 0.63 0.27 - 4.20 uU/mL [facility] Blood specimen (specimen) 07/15/2010 4:41 PM CDT 07/15/2010 10:51 PM CDT Douglas Patricio MD CHEMISTRY ORDERABLES [facility] CLIA# [id number] [address] [place] [address] * PROGESTERONE (07/15/2010 4:41 PM CDT) PROGESTERONE 13.9 ng/mL [facility] Comment: Progesterone Reference Range: ?Female: Normally Menstruating Female ? Follicular Phase ?0.2 - 1.5 ??ng/mL ? Ovulation Phase ? 0.8 - 3.0 ??ng/mL ? Luteal Phase ?1.7 - 27.0 ng/mL ? Postmenopausal ?0.1 - 0.8 ??ng/mL No Pediatric Reference Range Available. Blood specimen (specimen) 07/15/2010 4:41 PM CDT 07/15/2010 10:51 PM CDT Douglas Patricio MD CHEMISTRY ORDERABLES Performing Organization Address [facility] de Phone Number [facility] CLIA# [id number] [address] [place] [address] * OBSTETRIC PANEL (07/15/2010 4:41 PM CDT) COMMENT See Additional Orderables [facility] Blood specimen (specimen) 07/15/2010 4:41 PM CDT 07/15/2010 10:51 PM CDT Douglas Patricio MD CHEMISTRY ORDERABLES Performing Organization Address [facility] de Phone Number [facility] CLIA# [id number] [address] [place] [address] * (ABNORMAL) HCG QUANTITATIVE, BLOOD (07/15/2010 4:41 PM CDT) HCG QUANT, BLOOD 7,897(H) 0 - 5 mIU/mL [facility] Comment: Result of 5 - 25 mIU/mL is indeterminant for , repeat of test recommemded in 48 hours. Reference Range: Gestational Age: 3 ??Weeks ?5.8 - 71.2 ?mIU/mL 4 ??Weeks ?9.5 - 750 ? mIU/mL 5 ??Weeks ?063 - 7963 ?mIU/mL 6 ??Weeks ?158 - 31,795 ?mIU/mL [...] Patricio MD CHEMISTRY ORDERABLES Performing Organization Address [facility]/State/ZIP Co de Phone Number [facility] CLIA# [id number] [address] [place] [address] * CHLAMYDIA/N. GONORRHOEAE, DNA (07/15/2010 3:52 PM CDT) [facility] CHLAMYDIA TRACHOMATIS DNA NOT DETECTED NOT DETECTED [facility] NEISSERIA GONORRHOEAE DNA NOT DETECTED NOT DETECTED [facility] GC AND CHLAMYDIA PROBE COMMENT See Result Comment [facility] Comment: This test was performed using the BD ProbeTec(TM) ET Chlamydia trachomatis and Neisseria gonorrhoeae Amplified DNA Assays. ? Lab test performed by: [facility] [address] [place] [address] NELSON FRENCH DO,MPH Specimen of unknown material (specimen) (Vaginal) 07/15/2010 3:52 PM CDT 07/15/2010 9:45 PM CDT Comment:ENDOCERVICAL Douglas Patricio MD BODY FLUIDS AND STOO LS [facility] CLIA# [id number] [address] [facility] [place] [address] * (ABNORMAL) POC , URINE (07/15/2010 3:51 PM CDT) [facility] HCG QUAL URINE NEG [facility] , URINE POC POSITIVE [facility] SPECIFIC GRAVITY UA 1.001 - 1.035 [facility] HCG QUAL URINE COMMENT [facility] Urine specimen (specimen) 07/15/2010 3:51 PM CDT Douglas Patricio MD POINT OF CARE TESTIN G [facility] documented in this encounter Visit Diagnoses Diagnosis examination or test, positive result- Primary Screening examination for venereal disease examination or test, positive result documented in this encounter Care Teams Civil Designer Relationship Specialty Start Date End Date Annalisa Christopher MD [address] [place] [address] PCP - General 07/07/08 documented as of this encounter
--- OUTSIDE RECORDS SUMMARY | 2024-10-06 18:16 | XMS_ITS | Encounter Summary ---
Author Organization [facility] Address [address] [place] [address] Care Team Providers Care Lumpia Wrapper Maker Name Role Phone Annalisa Christopher MD Primary Care Provider [phone] Encounter Details Date Type Department Care Team (Late st Contact Info) Description 10/11/2004 Outpatient Historical [facility] FIELD LABORER - [facility] [address] [facility] [address] [place] [address] Gavin Hadley MD [address] [place] [address] Social History Tobacco Use Types [...] Description 04/25/2025 8:20 AM CDT Office Visit [facility] Primary Care - [facility] [address] [place] [address] Annalisa Christopher MD [address] [place] [address] documented as of this encounter Visit Diagnoses Not on filedocumented in this encounter Care Teams Lumpia Wrapper Maker Relationship Specialty Start Date End Date Annalisa Christopher MD [address] [place] [address] PCP - General 07/07/08 documented as of this encounter
--- OUTSIDE RECORDS SUMMARY | 2024-10-06 18:16 | XMS_ITS | Encounter Summary ---
Author Organization [facility] Address [address] [place] [address] Care Team Providers Care Continuous Mining Operator Name Role Phone Annalisa Christopher MD Primary Care Provider [phone] Encounter Details Date Type Department Care Team (Latest Contact Info) Description 12/27/2007 Outpatient Historical [facility] [address] [place] [address] [place] [address] Annalisa Christopher MD [address] [place] [address] [place] [address] Iron Deficiency Anemia Secondary to Blood Loss (Chronic) Social History Tobacco Use Types Packs/Day Years [...] AM CDT Office Visit [facility] [address] [place] [address] [place] [address] Annalisa Christopher MD [address] [place] [address] [address] [place] [address] documented as of this encounter Procedures Procedure Name Priority Date/Time Associated Diagnosis Comments CBC WITH DIFFERENTIAL Routine 12/27/2007 1:34 PM CDT documented in this encounter Results * CBC WITH DIFFERENTIAL (12/27/2007 1:34 PM CDT) WBC 6.8 4.0 - 9.8 K/uL [facility] MCH 30.1 27.2 - 32.6 pg [facility] MPV 11.1 9.3 - 12.4 fL [facility] HEMATOCRIT 40.0 35.5 - 44.0 % [facility] RDW-STDEV 44.4 37.1 - 48.7 fL [facility] RBC 4.38 3.90 - 4.90 M/uL [facility] MCHC 33.0 31.5 - 35.5 % [facility] MCV 91.3 82.0 - 99.0 fL [facility] PLATELETS 222 140 - 350 K/uL [facility] HEMOGLOBIN 13.2 11.8 - 14.8 g/dL [facility] RDW 13.3 11.5 - 14.5 % [facility] BASOPHILS 0 0 - 2 % [facility] BASOPHILS ABSOLUTE 0.02 0.00 - 0.20 K/uL [facility] MONOCYTES 9 3 - 13 % [facility] MONOCYTE ABSOLUTE 0.64 0.10 - 1.30 K/uL [facility] NEUTROPHILS 61 45 - 70 % [facility] NEUTROPHIL ABSOLUTE 4.16 1.90 - 7.00 K/uL [facility] EOSINOPHILS 1 0 - 7 % [facility] EOSINOPHIL ABSOLUTE 0.07 0.00 - 0.70 K/uL [facility] LYMPHOCYTES 29 16 - 45 % [facility] LYMPHOCYTE ABSOLUTE 1.95 0.70 - 4.50 K/uL [facility] Blood specimen (specimen) 12/27/2007 1:34 PM CDT 12/27/2007 5:05 PM CDT Annalisa Christopher MD HEMATOLOGY ORDERABLE S [facility] [address] [place] [address] documented in this encounter Visit Diagnoses Diagnosis Iron deficiency anemia secondary to blood loss (chronic) documented in this encounter Care Teams Continuous Mining Operator Relationship Specialty Start Date End Date Annalisa Christopher MD [address] [place] [address] PCP - General 07/07/08 documented as of this encounter
--- OUTSIDE RECORDS SUMMARY | 2024-10-06 18:16 | XMS_ITS | Encounter Summary ---
Author Organization [facility] Address [address] [place] [address] Care Team Providers Care Steward Dishwasher Name Role Phone Annalisa Christopher MD Primary Care Provider [phone] Encounter Details Date Type Department Care Team (Late st Contact Info) Description 10/16/2007 Outpatient Historical [facility] ONCOLOGY RADIATION PHYSICIAN - [facility] [address] [place] [address] Douglas Patricio MD [address] [place] [address] Social History Tobacco Use Types Packs/Day Years [...] [facility] Primary Care - [facility] [address] [place] [address] Annalisa Christopher MD [address] [place] [address] [address] [place] [address] documented as of this encounter Visit Diagnoses Not on filedocumented in this encounter Care Teams Steward Dishwasher Relationship Specialty Start Date End Date Annalisa Christopher MD [address] [place] [address] [address] [place] [address] PCP - General 07/07/08 documented as of this encounter
--- OUTSIDE RECORDS SUMMARY | 2024-10-06 18:16 | XMS_ITS | Encounter Summary ---
Author Organization [facility] Address [address] [place] [address] Care Team Providers Care Catheter Builder Name Role Phone Annalisa Christopher MD Primary Care Provider [phone] Encounter Details Date Type Department Care Team (Late st Contact Info) Description 08/26/2005 Outpatient Historical [facility] Horacio Bain MD [address] [place] [address] [place] [address] ABDOMINAL PAIN UNSPEC SITE (Primary Dx) Social History Tobacco Use Types Packs/Day Years Used Date Smoking Tobacco: Never Assessed Sex and Gender Information Value Date Recorded Sex Assigned at Not on file Gender Identity Not on file Sexual Orientation Not on file documented as of this encounter Plan of Treatment Upcoming Encounters Date Type Department Care Team (Late Contact Info) Description 04/25/2025 8:20 AM CDT Office Visit [facility] Primary Care - [facility] [address] [place] [address] Annalisa Christopher MD [address] [place] [address] documented as of this encounter Visit Diagnoses Diagnosis Abdominal pain, unspecified site- Primary documented in this encounter Care Teams Catheter Builder Relationship Specialty Start Date End Date Annalisa Christopher MD [address] [place] [address] PCP - General 07/07/08 documented as of this encounter
--- OUTSIDE RECORDS SUMMARY | 2024-10-06 18:16 | XMS_ITS | Encounter Summary ---
Author Organization [facility] Address [address] [place] [address] Care Team Providers Care Planning Intern Name Role Phone Annalisa Christopher MD Primary Care Provider [phone] Encounter Details Date Type Department Care Team (Latest Contact Info) Description 04/27/2005 Outpatient Historical [facility] Kacey Potter MD NO ADDRESS ON FILE ABDOMINAL PAIN UNSPEC SITE (Primary Dx) Social [...] Description 04/25/2025 8:20 AM CDT Office Visit [facility] Primary Care - [facility] [address] [place] [address] [place] [address] Annalisa Christopher MD [address] [place] [address] Rd [address] [place] [address] documented as of this encounter Visit Diagnoses Diagnosis Abdominal pain, unspecified site- Primary documented in this encounter Care Teams Planning Intern Relationship Specialty Start Date End Date Annalisa Christopher MD [address] [place] [address] Rd [address] [place] [address] PCP - General 07/07/08 documented as of this encounter
--- OUTSIDE RECORDS SUMMARY | 2024-10-06 18:16 | XMS_ITS | Encounter Summary ---
Author Organization [facility] Address [address] [place] [address] Care Team Providers Care Ob Gyn Physician Assistant Name Role Phone Annalisa Christopher MD Primary Care Provider [phone] Reason for Visit * Reason Comments Ultrasound Encounter Details Date Type Department Care Team (Late st Contact Info) Description 07/28/2010 11:00 AM CDT Office Visit [facility] SODA DIALYZER - [facility] [place] [address] [facility] [address] [address] Griselda Alvarez state, incidental (Primary [...] this encounter Progress Notes * Ultrasound - 07/28/2010 11:23 AM CDT Patient seen in office today and Ultrasound exam performed. documented in this encounter Plan of Treatment Upcoming Encounters Date Type Department Care Team (Late st Contact Info) Description 04/25/2025 8:20 AM CDT Office Visit [facility] Primary Care - [facility] [address] [place] [address] Annalisa Christopher MD [address] [place] [address] Rd [address] [place] [address] documented as of this encounter Procedures Procedure Name Priority Date/Time Associated Diagnosis Comments US OB TRANSVAGINAL Routine 07/28/2010 state, incidental documented in this encounter Results * US OB TRANSVAGINAL (07/28/2010) Anatomical Region Laterality Modality Pelvis Other Impressions 07/28/2010 Fabiana Pryor is a 35 y.o. is here for an Ultrasound Reason for Ultrasound exam: ??Dating/viability Intrauterine : ??present Gestational Sac: present Heart Motion: 145 bpm Single fetus with CRL= 1.11 cm. Gestational age this ultrasound: 7w0d EDC by this ultrasound: 03/12/2011 Repeat ultrasound in 3 months Douglas Patricio MD US ORDERABLES documented in this encounter Visit Diagnoses Diagnosis state, incidental- Primary documented in this encounter Care Teams Ob Gyn Physician Assistant Relationship Specialty Start Date End Date Annalisa Christopher MD [address] [place] [address] PCP - General 07/07/08 documented as of this encounter
--- OUTSIDE RECORDS SUMMARY | 2024-10-06 18:16 | XMS_ITS | Encounter Summary ---
Author Organization [facility] Address [address] [place] [address] Care Team Providers Care Fire Technology Instructor Name Role Phone Annalisa Christopher MD Primary Care Provider [phone] Reason for Visit * Reason Onset Date Comments Upper Respiratory Symptoms 07/26/2010 Encounter Details Date Type Department Care Team (Late st Contact Info) Description 07/26/2010 Telephone [facility] CHEMICAL PACKAGER - [address] [address] Douglas Patricio MD [address] [place] [address] [place] [address] Upper Respiratory Symptoms Social History Tobacco Use [...] * Telephone Encounter - Emely Adams - 07/26/2010 1:33 PM CDT Pt is 7 weeks and has productive cough, sinus drainage and ST. Allergic to Sufla. Z-elizabeth topharmacy. AB documented in this encounter Plan of Treatment Upcoming Encounters Date Type Department Care Team (Late st Contact Info) Description 04/25/2025 8:20 AM CDT Office Visit [facility] Primary Care - [facility] [address] [place] [address] Annalisa Christopher MD [address] [place] [address] documented as of this encounter Visit Diagnoses Not on filedocumented in this encounter Care Teams Fire Technology Instructor Relationship Specialty Start Date End Date Annalisa Christopher MD [address] [place] [address] PCP - General 07/07/08 documented as of this encounter
--- OUTSIDE RECORDS SUMMARY | 2024-10-06 18:16 | XMS_ITS | Encounter Summary ---
Author Organization [facility] Address [address] [place] [address] Care Team Providers Care Clinical Team Lead Name Role Phone Annalisa Christopher MD Primary Care Provider [phone] Reason for Visit * Reason Comments Routine Visit Encounter Details Date Type Department Care Team (Latest Contact Info) Description 08/12/2010 3:30 PM TITLE 1 TUTOR visit [facility] TRIMMING CUTTER - [address] [address] Douglas Patricio MD [address] [place] [address] [place] [address] Supervision of other normal (Primary Dx) [...] Reading Time Taken Comments Blood Pressure 118/78 08/12/2010 3:30 PM TITLE 1 TUTOR Pulse - - Temperature - - Respiratory Rate - - Oxygen Saturation - - Inhaled Oxygen Concentration - - Weight 80.3 kg (177 lb) 08/12/2010 3:30 PM TITLE 1 TUTOR Height - - Body Mass Index 27.72 10/22/2009 3:53 PM TITLE 1 TUTOR documented in this encounter Progress Notes * Douglas Patricio MD - 08/12/2010 3:53 PM CST Declines any genetic testing; labs and US normal E 1 TUTOR documented in this encounter Plan of Treatment Upcoming Encounters Date Type Department Care Team (Late st Contact Info) Description 04/25/2025 8:20 AM CDT Office Visit [facility] Primary Care - [facility] [address] [facility] [address] [place] [address] Annalisa Christopher MD [address] [place] [address] documented as of this encounter Visit Diagnoses Diagnosis Supervision of other normal - Primary documented in this encounter Care Teams Clinical Team Lead Relationship Specialty Start Date End Date Annalisa Christopher MD [address] [place] [address] PCP - General 07/07/08 documented as of this encounter
--- OUTSIDE RECORDS SUMMARY | 2024-10-06 18:16 | XMS_ITS | Encounter Summary ---
Author Organization [facility] Address [address] [place] [address] Care Team Providers Care Train Inspector Name Role Phone Annalisa Christopher MD Primary Care Provider [phone] Encounter Details Date Type Department Care Team (Late st Contact Info) Description 12/29/2005 Outpatient Historical [facility] COVER MAT MACHINE OPERATOR - [facility] [address] [address] [place] [address] Douglas Patricio MD [address] [facility] [address] [place] [address] Social History Tobacco Use Types Packs/Day [...] [facility] Primary Care - [facility] [address] [facility] [address] [place] [address] Annalisa Christopher MD [address] [place] [address] [address] [place] [address] documented as of this encounter Visit Diagnoses Not on filedocumented in this encounter Care Teams Train Inspector Relationship Specialty Start Date End Date Annalisa Christopher MD [address] [place] [address] [address] [place] [address] PCP - General 07/07/08 documented as of this encounter
--- OUTSIDE RECORDS SUMMARY | 2024-10-06 18:16 | XMS_ITS | Encounter Summary ---
Author Organization [facility] Address [address] [place] [address] Care Team Providers Care Hot Metal Mixer Operator Helper Name Role Phone Annalisa Christopher MD Primary Care Provider [phone] Encounter Details Date Type Department Care Team (Late st Contact Info) Description 02/03/2005 Outpatient Historical [facility] BOLT THREADER - [facility] [address] [facility] [address] [place] [address] Gavin [place] MD [address] [place] [address] Social History Tobacco Use Types [...] [facility] Primary Care - [facility] [address] [place] [address] Annalisa Christopher MD [address] [place] [address] documented as of this encounter Visit Diagnoses Not on filedocumented in this encounter Care Teams Hot Metal Mixer Operator Helper Relationship Specialty Start Date End Date Annalisa Christopher MD [address] [place] [address] PCP - General 07/07/08 documented as of this encounter
--- OUTSIDE RECORDS SUMMARY | 2024-10-06 18:16 | XMS_ITS | Encounter Summary ---
Author Organization [facility] Address [address] [place] [address] Care Team Providers Care Lead Web Application Developer Name Role Phone Annalisa Christopher MD Primary Care Provider [phone] Encounter Details Date Type Department Care Team (Late st Contact Info) Description 07/14/2006 Outpatient Historical [facility] Primary Care - [address] [place] [address] Kacey Potter MD NO ADDRESS ON FILE Social History Tobacco [...] [facility] Primary Care - [facility] [address] [facility] [address] [place] [address] Annalisa Christopher MD [address] [place] [address] [address] [place] [address] documented as of this encounter Visit Diagnoses Not on filedocumented in this encounter Care Teams Lead Web Application Developer Relationship Specialty Start Date End Date Annalisa Christopher MD [address] [place] [address] PCP - General 07/07/08 documented as of this encounter
--- OUTSIDE RECORDS SUMMARY | 2024-10-06 18:16 | XMS_ITS | Encounter Summary ---
Author Organization [facility] Address [address] [place] [address] Care Team Providers Care Microsoft Infrastructure Consultant Name Role Phone Annalisa Christopher MD Primary Care Provider [phone] Encounter Details Date Type Department Care Team (Late st Contact Info) Description 01/19/2004 Outpatient Historical [facility] RN BIRTHING - [facility] [address] [facility] [facility] [address] [place] [address] Gavin [place] MD [address] [place] [address] Social History Tobacco Use Types [...] [facility] Primary Care - [facility] [address] [place] [address] Annalisa Christopher MD [address] [place] [address] documented as of this encounter Visit Diagnoses Not on filedocumented in this encounter Care Teams Microsoft Infrastructure Consultant Relationship Specialty Start Date End Date Annalisa Christopher MD [address] [place] [address] PCP - General 07/07/08 documented as of this encounter
--- OUTSIDE RECORDS SUMMARY | 2024-10-06 18:16 | XMS_ITS | Encounter Summary ---
Author Organization [facility] Address [address] [place] [address] Care Team Providers Care Concrete Bucket Hooker Name Role Phone Annalisa Christopher MD Primary Care Provider [phone] Encounter Details Date Type Department Care Team (Latest Contact Info) Description 07/15/2010 9:42 PM CDT - 07/15/2010 11:59 PM CDT Hospital Encounter [facility] Laboratory Support Services S [facility] [address] [place] [address] Douglas Patricio MD [address] [facility] [address] [address] examination or test, positive result Discharge Disposition: Home or Self Care Social [...] [facility] Primary Care - [address] [place] [address] Annalisa Christopher MD [address] [place] [address] [address] [place] [address] documented as of this encounter Procedures Procedure Name Priority Date/Time Associated Diagnosis Comments CHLAMYDIA/N. GONORRHOEAE, DNA Routine 07/15/2010 3:52 PM CDT examination or test, positive result Screening examination for venereal disease documented in this encounter Results * CHLAMYDIA/N. GONORRHOEAE, DNA (07/15/2010 3:52 PM CDT) CHLAMYDIA TRACHOMATIS DNA NOT DETECTED NOT DETECTED [facility] NEISSERIA GONORRHOEAE DNA NOT DETECTED NOT DETECTED [facility] GC AND CHLAMYDIA PROBE COMMENT See Result Comment [facility] Comment: This test was performed using the BD ProbeTec(TM) ET Chlamydia trachomatis and Neisseria gonorrhoeae Amplified DNA Assays. ? Lab test performed by: [facility] [id number] [place] [address] NELSON FRENCH DO,MPH Specimen of unknown material (specimen) (Vaginal) 07/15/2010 3:52 PM CDT 07/15/2010 9:45 PM CDT Comment:ENDOCERVICAL Douglas Patricio MD BODY FLUIDS AND STOO LS [facility] CLIA# [id number] [address] [facility] [place] [id number] documented in this encounter Visit Diagnoses Diagnosis examination or test, positive result Screening examination for venereal disease documented in this encounter Care Teams Concrete Bucket Hooker Relationship Specialty Start Date End Date Annalisa Christopher MD [address] [place] [address] PCP - General 07/07/08 documented as of this encounter
--- OUTSIDE RECORDS SUMMARY | 2024-10-06 18:16 | XMS_ITS | Encounter Summary ---
Author Organization [facility] Address [address] [place] [address] Care Team Providers Care Planning Lead Name Role Phone Annalisa Christopher MD Primary Care Provider [phone] Reason for Visit * Reason Comments Urinary Frequency pt thinks she has a bladder infection Encounter Details Date Type Department Care Team (Late st Contact Info) Description 10/08/2008 10:15 AM HYDROGEN PLANT OPERATIONS MANAGER Office Visit [facility] Primary Care - [address] [place] [address] Annalisa Christopher MD [address] [place] [address] [place] [address] UTI (Primary Dx) Social History Tobacco Use Types [...] Reading Time Taken Comments Blood Pressure 110/70 10/08/2008 10:16 AM HYDROGEN PLANT OPERATIONS MANAGER Pulse - - Temperature 36.3 ??C (97.4 ??F) 10/08/2008 10:[address] Respiratory Rate - - Oxygen Saturation - - Inhaled Oxygen Concentration - - Weight 67.1 kg (148 lb) 10/08/2008 10:16 AM HYDROGEN PLANT OPERATIONS MANAGER Height - - Body Mass Index - - documented in this encounter Progress Notes * Annalisa Christopher MD - 10/08/2008 11:01 AM CST HISTORY OF PRESENT ILLNESS FABIANA HILL, a 33 y.o. female. Urinary Frequency This is a new problem. The current episode started more than 2 days ago. The problem occurs constantly. The problem has been gradually improving. Pertinent negatives include no chest pain, no abdominal pain, no headaches and no shortness of breath. Nothing worsens the symptoms. She has tried water and rest for the symptoms. The treatment provided significant relief. REVIEW OF SYSTEMS Review of Systems Respiratory: Negative for shortness of breath. Cardiovascular: Negative for chest pain. Gastrointestinal: Negative for abdominal pain. Neurological: Negative for headaches. PHYSICAL EXAM BP 110/70 Temp 97.4 ??F (36.3 ??C) Wt 148 lb (67.132 kg) Physical Exam Constitutional: She appears well-developed. HENT: Head: Normocephalic. Pulmonary/Chest: Effort normal and breath sounds normal. Abdominal: Soft. Tenderness is present in the suprapubic area. Skin: Skin is warm and dry. ASSESSMENT and PLAN: Encounter Diagnoses Code Name Primary? Qualifier ??? 599.0W UTI Yes Plan: POC URINALYSIS DIPSTICK NON AUTOMATED, CIPROFLOXACIN 500 MG TAB OGEN PLANT OPERATIONS MANAGER documented in this encounter Plan of Treatment Upcoming Encounters Date Type Department Care Team (Late st Contact Info) Description 04/25/2025 8:20 AM CDT Office Visit [facility] Care - [address] [place] [address] Annalisa Christopher MD [address] [place] [address] [place] [address] documented as of this encounter Procedures Procedure Name Priority Date/Time Associated Diagnosis Comments POC URINALYSIS DIPSTICK NON AUTOMATED Routine 10/08/2008 12:36 PM HYDROGEN PLANT OPERATIONS MANAGER UTI documented in this encounter Results * POC URINALYSIS DIPSTICK NON AUTOMATED (10/08/2008 12:36 PM HYDROGEN PLANT OPERATIONS MANAGER) COLOR UA YELLOW [facility] CLARITY UA CLEAR [facility]YS[facility] OFF[facility] CLINIC SPECIFIC GRAVITY UA 1.015 1.001 - 1.035 [facility] PH UA 7.0 5 - 8 [facility] LEUKOCYTE ESTERASE UA large [facility]ACE [facility] NITRITE UA neg POS [facility]YSICIAN S OFFICE CLINIC PROTEIN UA neg [facility] GLUCOSE UA neg TRACE [facility] S [facility] CLINIC KETONES UA neg TRACE [facility]IN[facility] UROBILINOGEN UA normal 2.0 EU/dL [facility]YS [facility] BILIRUBIN UA neg SMALL PHYSICI ANS OFFICE CLINIC BLOOD UA neg [facility] Urine specimen (specimen) 10/08/2008 12:36 PM HYDROGEN PLANT OPERATIONS MANAGER Annalisa Christopher MD POINT OF CARE TESTIN G [facility] documented in this encounter Visit Diagnoses Diagnosis UTI- Primary Urinary tract infection, site not specified documented in this encounter Care Teams Planning Lead Relationship Specialty Start Date End Date Annalisa Christopher MD [address] [place] [address] PCP - General 07/07/08 documented as of this encounter
--- OUTSIDE RECORDS SUMMARY | 2024-10-06 18:16 | XMS_ITS | Encounter Summary ---
Author Organization [facility] Address [address] [place] [address] Care Team Providers Care Car Audio Installer Name Role Phone Annalisa Chritsopher MD Primary Care Provider [phone] Encounter Details Date Type Department Care Team (Late st Contact Info) Description 11/25/2003 Outpatient Historical [facility] MEDICAL REIMBURSEMENT MANAGER - [facility] [address] [facility] [facility] [address] [place] [address] Gavin Hadley MD [address] [place] [address] Social History Tobacco Use Types [...] [facility] Primary Care - [facility] [address] [place] [address] Annalisa Christopher MD [address] [place] [address] documented as of this encounter Visit Diagnoses Not on filedocumented in this encounter Care Teams Car Audio Installer Relationship Specialty Start Date End Date Annalisa Christopher MD [address] [place] [address] PCP - General 07/07/08 documented as of this encounter
--- OUTSIDE RECORDS SUMMARY | 2024-10-06 18:16 | XMS_ITS | Encounter Summary ---
Author Organization [facility] Address [address] [place] [address] Care Team Providers Care Director Of Hotel Name Role Phone Annalisa Christopher MD Primary Care Provider [phone] Encounter Details Date Type Department Care Team (Late st Contact Info) Description 12/27/2007 Outpatient Historical [facility] [address] [place] [address] Annalisa Christopher MD [address] [place] [address] [address] [place] [address] Social History Tobacco Use Types [...] Description 04/25/2025 8:20 AM CDT Office Visit [facility] [address] [place] [address] [place] [address] [place] [address] [address] [place] [address] documented as of this encounter Visit Diagnoses Not on filedocumented in this encounter Care Teams Director Of Hotel Relationship Specialty Start Date End Date Annalisa Christopher MD [address] [place] [address] PCP - General 07/07/08 documented as of this encounter
--- OUTSIDE RECORDS SUMMARY | 2024-10-06 18:16 | XMS_ITS | Encounter Summary ---
Author Organization [facility] Address [address] [place] [address] Care Team Providers Care Substation Operator Helper Name Role Phone Annalisa Christopher MD Primary Care Provider [phone] Encounter Details Date Type Department Care Team (Late st Contact Info) Description 12/27/2007 Outpatient Historical [facility] [address] [place] [address] Annalisa Christopher MD [address] [place] [address] [address] [place] [address] Social History Tobacco Use Types [...] Description 04/25/2025 8:20 AM CDT Office Visit [facility] [address] [place] [address] Annalisa Christopher MD [address] [place] [address] [address] [place] [address] documented as of this encounter Visit Diagnoses Not on filedocumented in this encounter Care Teams Substation Operator Helper Relationship Specialty Start Date End Date Annalisa Christopher MD [address] [place] [address] PCP - General 07/07/08 documented as of this encounter
--- OUTSIDE RECORDS SUMMARY | 2024-10-06 18:16 | XMS_ITS | Encounter Summary ---
Author Organization [facility] Address [address] [place] [address] Care Team Providers Care Clay Washer Name Role Phone Annalisa Christopher MD Primary Care Provider [phone] Reason for Visit * Reason Onset Date Comments Upper Respiratory Symptoms 05/01/2009 Encounter Details Date Type Department Care Team (Late st Contact Info) Description 05/01/2009 Telephone [facility] Primary Care - [address] [place] [address] Annalisa Christopher MD [address] [place] [address] [address] [place] [address] Upper Respiratory Symptoms Social History [...] * Telephone Encounter - Emely Cuadra - 05/01/2009 9:18 AM CDT Spoke to pt. * Telephone Encounter - Annalisa Christopher MD - 05/01/2009 9:12 AM CDT faxed * Telephone Encounter - Tiana Brothers - 05/01/2009 8:45 AM CDT DRAINAGE, COUGHING GREEN-YELLOW PHLEGM, TAKING ZYRTEC, SORE THROAT, SINUS PRESSURE AND PAIN AROUND EYES, SX X 3 DAYS --WANTING RX documented in this encounter Plan of Treatment Upcoming Encounters Date Type Department Care Team (Late st Contact Info) Description 04/25/2025 8:20 AM CDT Office Visit [facility] Primary Care - [facility] [address] [facility] [address] [place] [address] Annalisa Christopher MD [address] [place] [address] documented as of this encounter Visit Diagnoses Diagnosis UTI Urinary tract infection, site not specified documented in this encounter Care Teams Clay Washer Relationship Specialty Start Date End Date Annalisa Christopher MD [address] [place] [address] PCP - General 07/07/08 documented as of this encounter
--- OUTSIDE RECORDS SUMMARY | 2024-10-06 18:16 | XMS_ITS | Encounter Summary ---
Author Organization [facility] Address [address] [place] [address] Care Team Providers Care High School Professional Name Role Phone Annalisa Christopher MD Primary Care Provider [phone] Encounter Details Date Type Department Care Team (Late st Contact Info) Description 12/27/2007 Orders Only [facility] Primary Care - [facility] [address] [place] [address] [address] [place] [address] Annalisa Christopher MD [address] [place] [address] [address] [place] [address] Social History Tobacco Use Types Packs/Day Years Used Date Smoking Tobacco: Never Assessed Sex and Gender Information Value Date Recorded Sex Assigned at Not on file Gender Identity Not on file Sexual Orientation Not on file documented as of this encounter Progress Notes * Annalisa Christopher MD - 02/29/2008 9:21 AM CDT TEMPERATURE: 97.1??f Oral BLOOD PRESSURE: 100/70 Left Arm Sitting WEIGHT: 134lbs NURSE NAME: Emely Abraham N ALLERGIES: Allergies are as listed. TOBACCO USE Patient is a current tobacco user. MEDICATIONS: Patient is taking no medications at present. CHIEF COMPLAINT Seen as a new patient to get established with the practice. Patient complains of head congestion, cough, headache. HISTORY: HISTORY OF PRESENT ILLNESS: UPPER RESPIRATORY: Onset is gradual. The upper respiratory symptoms began approximately 2 weeks ago. The patient has chest congestion, sputum is greenish, no symptoms of wheezing, symptoms include sinus congestion, symptoms of sore throat, has no symptoms of ears popping, has symptoms of earache. ROS: CARDIAC: No chest pain, palpitations, orthopnea, dyspnea on exertion, or paroxysmal nocturnal dyspnea. RESPIRATORY: See HISTORY OF PRESENT ILLNESS. : No frequency, urgency, hematuria or dysuria. GI: No abdominal pain, nausea, vomiting, diarrhea, constipation, melena, or hematochezia. PSYCHIATRIC: NOTES INCREASED STRESS, HAS SLEEP DISTURBANCES. PAST MEDICAL HISTORY: MEDICAL: Asthma, pneumonia. anemia, migraine SURGICAL: Bilateral breast augmentation, section. CHILDHOOD DISEASES: Normal childhood diseases. CURRENT MEDICATIONS: A - B. Albuterol ALLERGIES/ADVERSE REACTIONS: Sulfa drugs. FAMILY HISTORY: FATHER: Illnesses: Hypertension. MOTHER: Illnesses: Hypertension, adult onset diabetes. SIBLINGS: One sibling. Healthy except as noted below. Crohn dis CHILDREN: 1) The patient's daughter is living. SOCIAL HISTORY: TOBACCO USE: Currently smokes occasionally, has smoked for 10 to 15 years. 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 EXERCISES: The patient is not exercising regularly. The exercise is predominantly cardio, walking. DIET: Follows no specific diet. ASSESSMENT/PLAN: 465.9-UPPER RESPIRATORY INFECTION MEDICATIONS: ZITHROMAX Z-CHRIS ORAL TABLET 250 MG, use as directed, 1 Dispensed, status: NEW PRESCRIPTION, 12/27/2007. CHERATUSSIN AC ORAL SYRUP 100-10 MG/5ML FLUIDOUNCES, two teaspoons every four to six hours as needed, 6 Dispensed, status: NEW PRESCRIPTION, 12/27/2007. 493.00-EXTRINSIC ASTHMA MEDICATIONS: ALBUTEROL INHALATION AEROSOL SOLUTION 90 MCG/ACT, 2 puffs q4-6hrs prn, 1 Dispensed, status: NEW PRESCRIPTION, 12/27/2007. 300.00-ANXIETY MEDICATIONS: VALIUM ORAL TABLET 2 MG, one po daily prn anxiety, 20 Dispensed, status: NEW PRESCRIPTION, 12/27/2007. 280.0-IRON DEFICIENCY ANEMIAS LAB ORDERS: Order number: [id number] Test Ordered: CBC W/ DIFFERENTIAL 3150 HEALTH MAINTENANCE: LAST BREAST EXAM DATE: 09/2007. LAST PAP DATE: 09/2007. LAST DATE PELVIC EXAM: 09/2007. DISCUSSED SMOKING: d pos. ( socially) LAST TD: unknown SEXUAL ACTIVITY DISCUSSED: d pos. INJURY PREVENTION DISCUSSED: d pos. DIET AND EXERCISE DISCUSSED: d pos. ( workout 2 x a week) LAST DATE COLONOSCOPY: d neg. LAST BONE DENSITY DATE: d neg. DIABETIC EYE EXAM: na. DIABETIC EYE EXAM PROVIDER: chadwick. DIABETIC FOOT EXAM: na LAST FLU VACCINE:d neg LAST PNEUMOCOCCAL:d neg RETURN VISIT : Patient instructed to call in 2 days if not improving. Electronically Signed by: Annalisa Christopher MD on December documented in this encounter Plan of Treatment Upcoming Encounters Date Type Department Care Team (Late st Contact Info) Description 04/25/2025 8:20 AM CDT Office Visit [facility] Primary Care - [facility] [address] [facility] [address] [facility] [place] [address] Annalisa Christopher MD [address] [place] [address] documented as of this encounter Visit Diagnoses Not on filedocumented in this encounter Care Teams High School Professional Relationship Specialty Start Date End Date Annalisa Christopher MD [address] [place] [address] PCP - General 07/07/08 documented as of this encounter
--- OUTSIDE RECORDS SUMMARY | 2024-10-06 18:16 | XMS_ITS | Encounter Summary ---
Author Organization [facility] Address [address] [place] [address] Care Team Providers Care Watermelon Inspector Name Role Phone Annalisa Christopher MD Primary Care Provider [phone] Encounter Details Date Type Department Care Team (Late st Contact Info) Description 01/11/2007 Outpatient Historical [facility] Primary Care - [address] [place] [address] Kacey Potter MD NO ADDRESS [...] Description 04/25/2025 8:20 AM CDT Office Visit [facility] Primary Care - [facility] [address] [facility] [address] [place] [address] Annalisa Christopher MD [address] [place] [address] [place] [address] documented as of this encounter Visit Diagnoses Not on filedocumented in this encounter Care Teams Watermelon Inspector Relationship Specialty Start Date End Date Annalisa Christopher MD [address] [place] [address] PCP - General 07/07/08 documented as of this encounter
--- OUTSIDE RECORDS SUMMARY | 2024-10-06 18:16 | XMS_ITS | Encounter Summary ---
Author Organization [facility] Address [address] [place] [address] Care Team Providers Care Cyber Defense Analyst Name Role Phone Annalisa Christopher MD Primary Care Provider [phone] Encounter Details Date Type Department Care Team (Late st Contact Info) Description 08/25/2005 Outpatient Historical [facility] HAND CUTTER APPRENTICE - [facility] [address] [facility] [address] [facility] [address] [place] [address] Douglas Patricio MD [address] [facility] [address] [place] [address] Social History Tobacco Use Types Packs/Day [...] [facility] Primary Care - [facility] [address] [facility] [address] [facility] [address] [place] [address] Annalisa Christopher MD [address] [place] [address] [address] [place] [address] documented as of this encounter Visit Diagnoses Not on filedocumented in this encounter Care Teams Cyber Defense Analyst Relationship Specialty Start Date End Date Annalisa Christopher MD [address] [place] [address] [address] [place] [address] PCP - General 07/07/08 documented as of this encounter
--- OUTSIDE RECORDS SUMMARY | 2024-10-06 18:16 | XMS_ITS | Encounter Summary ---
Author Organization [facility] Address [address] [place] [address] Care Team Providers Care Potato Chip Fryer Name Role Phone Annalisa Christopher MD Primary Care Provider [phone] Reason for Visit * Auth/Cert - Closed Specialty Diagnoses / Procedures Referred By Contac t Referred To Contact General Surgery Diagnoses MISSED AB Procedures DILATATION AND CURETTAGE SUCTION [facility] [address] [place] [address] Referral ID Status Reason Start Date Expiration Date Visits Re quested Visits Authorized [id number] Closed 09/07/2010 03/06/2011 1 Encounter Details Date Type Department Care Team (Latest Contact Info) Description 09/08/2010 1:36 PM BALANCE STAFF INSPECTOR - 09/08/2010 6:05 PM [facility] Hospital Encounter [facility] [address] [place] [address] [place] Jeffrey MD [address] [address] Discharge Disposition: Home or Self Care [...] Sign Reading Time Taken Comments Blood Pressure 108/53 09/08/2010 6:00 PM BALANCE STAFF INSPECTOR Pulse 77 09/08/2010 6:00 PM BALANCE STAFF INSPECTOR Temperature 36.5 ??C (97.7 ??F) 09/08/2010 6:00 PM CS T Respiratory Rate 20 09/08/2010 6:00 PM BALANCE STAFF INSPECTOR Oxygen Saturation 98% 09/08/2010 6:00 PM BALANCE STAFF INSPECTOR Inhaled Oxygen Concentration - - Weight 78 kg (172 lb) 09/07/2010 1:11 PM BALANCE STAFF INSPECTOR Height 170.2 cm (5' 7 ) 09/07/2010 1:11 PM BALANCE STAFF INSPECTOR Body Mass Index 26.94 09/07/2010 1:11 PM BALANCE STAFF INSPECTOR documented in this encounter Discharge Instructions * Discharge Instructions* Phuong Metz RN - 09/08/2010 5:15 PM BALANCE STAFF INSPECTOR D & C INSTRUCTION SHEET The cervix [...] or come to the Emergency Room at [place] ([phone]) or the nearest Emergency Room. In an emergency, Call 911. NCE STAFF INSPECTOR documented in this encounter H&P Notes * Nathalia Alexander MD - 09/08/2010 3:00 PM CST Subjective: Fabiana Dias is a 35 y.o. female who presents for dilation and curettage 2/2 missed . She is 13w by dates, was recently evaluated for first trimester bleeding at [facility]. US at that time showed [...] All questions were answered. Nathalia Alexander MD NCE STAFF INSPECTOR documented in this encounter OR Notes * OR Anesthesia - Stl Scanning, Him - 09/09/2010 2:39 PM BALANCE STAFF INSPECTOR * Louise-OP - Phuong Metz RN - [...] pain/comfort utilizing verbal/nonverbal pain scales; assess culturalor oriental orthodox indicators attached to pain; administer pain medications as prescribed; utilize non-pharmacologic pain control and comfort measures Expected Outcome: Patient demonstrates and reports adequate pain control Outcome Met: yes NCE STAFF INSPECTOR * OR Anesthesia - Harmony Nugent MD - 09/08/2010 4:34 PM CST Phase I Postanesthesia Evaluation Including Modified Sean Score Patient seen and evaluated: RESPIRATORY FUNCTION: Respiration: able to breath and cough freely (09/08/101621) [2=able to breathe and cough freely, 1=dyspnea, limited breathing or tachypnea, 0=apnea or mechanicventilator] O2 Saturation: able to maintain O2 saturation greater than 92% on room air (09/08/101621) [2=able to maintain O2 saturation greater than 92% on room air, 1=needs O2 inhalation to maintain O2 saturation greater than 90%, 0=O2 saturation less than 90% even with O2 supplement] Resp: 18 (09/08/101629)SpO2: 98 % (09/08/101629) CARDIOVASCULAR FUNCTION: BP: 110/59 mmHg (09/08/101629) Circulation: BP within 20% of preanesthetic level (09/08/101621) [2=BP within 20% of preanesthetic level, 1=BP within 20-49% of preanesthetic level, 0=BP within 50%of preanesthetic level] MENTAL STATUS, NEURO, ACTIVITY: Consciousness: fully awake (09/08/101621) [2=fully awake, 1=arousable on calling, 0=not responding] Activity: able to move 4 extremities voluntarily or on command (09/08/101621) [2=able to move 4 extremities voluntarily or on command, 1=able to move 2 extremities voluntarily or on command, 0=unable to move extremities voluntarily or on command] TEMPERATURE: Temp: 97.8 ??F (36.6 ??C) (09/08/10 1607) PAIN: Pain Rating: Rest: 5 (09/08/10 145) Presence of Pain: complains of pain/discomfort (09/08/10 145) NAUSEA AND VOMITING: POSTOPERATIVE HYDRATION: Intake/Output Summary (Last 24 hours) at 09/08/10 1634 Last data filed at 09/08/10 1603 Gross per 24 hour Intake 700 ml Output 100 ml Net 600 ml Modified Sean Score: Score: 10 (09/08/101621) COMMENTS: No apparent Anesthesia related complications Harmony Nugent MD 09/08/2010 4:34 PM NCE STAFF INSPECTOR * Louise-OP - Isabelle Cabrera RN - 09/08/2010 4:14 PM CST Pt to recovery slot 12 by bed, placed on monitor, VSS. Resp even and unlabored. Peripad placed no drainage noted. Report received from AA. NCE STAFF INSPECTOR * Operative Report - Nathalia Alexander MD - 09/08/2010 4:07 PM CST DATE OF SERVICE: 09/08/2010 PREOPERATIVE DIAGNOSIS 1. Missed 2. IUP @ 13w by dates and 9w by size POSTOPERATIVE DIAGNOSIS 1. Missed OPERATION NAME Suction dilation and curettage SURGEON [place] Jeffrey MD WRAPPER SIZER Nathalia Alexander MD PGY1 ANESTHESIA General COMPLICATIONS [...] for pathology and cytogenetics Nathalia Alexander MD NCE STAFF INSPECTOR * Louise-OP - Melani Dang RN - 09/08/2010 4:06 PM CST Cytogenetics collected. NCE STAFF INSPECTOR * OR Anesthesia - Maribel Espino MD - 09/08/2010 2:58 PM CST Pre-Anesthesia Evaluation - Long Form 09/08/2010 2:58 PM Name: Fabiana Dias Age: 35 y.o. Sex: female CSN: [id number] Procedure: Procedure(s): DILATATION AND CURETTAGE SUCTION Surgeons/Assistants: [...] solicited and answered. Yes Maribel Espino MD NCE STAFF INSPECTOR documented in this encounter Miscellaneous Notes * Scanned Form - Stl Scanning, [facility] - 09/09/2010 2:39 PM BALANCE STAFF INSPECTOR * Scanned Form - Stl Scanning, [facility] - 09/09/2010 2:39 PM BALANCE STAFF INSPECTOR * Scanned Form - Stl Scanning, [facility] - 09/09/2010 2:39 PM BALANCE STAFF INSPECTOR * Patient Instructions - Stl Scanning, [facility] - 09/09/2010 2:39 PM BALANCE STAFF INSPECTOR * Scanned Form - Stl Scanning, [facility] - 09/09/2010 2:39 PM BALANCE STAFF INSPECTOR * Scanned Form - Stl Scanning, [facility] - 09/09/2010 2:39 PM BALANCE STAFF INSPECTOR documented in this encounter Plan of Treatment Upcoming Encounters Date Type Department Care Team (Late st Contact Info) Description 04/25/2025 8:20 AM CDT Office Visit [facility] Primary Care - [facility] [address] [place] [address] Annalisa Christopher MD [address] [place] [address] documented as of this encounter Procedures Procedure Name Priority Date/Time Associated Diagnosis Comments CHROMOSOME ANALYSIS, TISSUE Routine 09/09/2010 4:29 PM BALANCE STAFF INSPECTOR PATHOLOGY Routine 09/08/2010 5:00 PM BALANCE STAFF INSPECTOR DILATATION AND CURETTAGE SUCTION 09/08/2010 2:50 PM BALANCE STAFF INSPECTOR MISSED AB Case Notes PENDING TYPE AND SCREEN Stat 09/08/2010 2:45 PM BALANCE STAFF INSPECTOR documented in this encounter Results * CHROMOSOME ANALYSIS, TISSUE (09/09/2010 4:29 PM BALANCE STAFF INSPECTOR) CYTOGENETICS INDICATIONS spontaneous [facility] GESTATIONAL AGE ON DATE OF ULTRASOUND ng Weeks [facility] KARYOTYPE NO ANALYSIS POSSIBLE [facility] CHROMOSOME RESULTS No cell growth occurred in tissue culture, and therefore chromosome analysis was not possible. [facility] CYTOGENETICS SPECIMEN POC [facility] METAPHASES COUNTED 0 [facility] METAPHASES ANALYZED 0 [facility] METAPHASES KARYOTYPED 0 [facility] NUMBER OF CULTURES 0 [facility] BANDING TECHNIQUE GTW [facility] BANDING RESOLUTION 0 [facility] WIRE TECHNICIAN, REF LAB Fariba Kc, Ph.D. [facility] Comment: Testing performed at [facility] [address] [place] [address] 09/09/2010 4:29 PM BALANCE STAFF INSPECTOR 09/09/2010 4:34 PM BALANCE STAFF INSPECTOR Comment:TISSUE [place] Jeffrey MD BODY FLUIDS AND STOO LS COM [facility] CLIA# [id number] [address] [facility] [place] [address] * PATHOLOGY (09/08/2010 5:00 PM BALANCE STAFF INSPECTOR) SURGICAL PATHOLOGY ?[facility] ?[address] ? [place], [place] ??[address] ? Patient: ??FABIANA DIAS L ? : ??1975 ? Procedure Date: ??09/08/2010 ? Accession Date: ??09/09/2010 ? Case No: ??[id number] ? Ordering Dr: ??DOUGLAS JEFFREY ? Case type SW is performed by [facility], [address] [place] [address], ? [place], [place] ??[address]; all other case types are performed by [facility] ? [facility], [address], [place], [place] ??[address] ?SURGICAL PATHOLOGY & NON-GYNECOLOGIC CYTOPATHOLOGY REPORT ? [...] 8 x 8 x 1-cm aggregate of orozco ? tissue and blood clot. Chorionic villi are identified. No structures ? are seen. Air Hammer Operator sections are submitted in cassettes A1 through A4. ? LWL/TOM 09.09.2010 01:16 pm ? Microscopic: ? The slides are labeled [id number] and Fabiana Dias. ? The specimen consists of an admixture of hemorrhagic and inflamed decidua, ? gestational endometrium, membranes, and immature fibrotic chorionic ? villi. A few tissue fragments consistent with parts are also ? identified. ? GL/DRC 09.13.2010 03:57 pm ? Staging Form: ? No. ? ELECTRONIC SIGNATURE FOR YUMIKO SOLANO M.D.- 09/13/10 09:53 pm [facility] Specimen of unknown material (specimen) 09/08/2010 5:00 PM BALANCE STAFF INSPECTOR [place] Jeffrey MD PATHOLOGY/CYTOLOGY O RDERABLES [facility] CLIA# [id number] [address] [place] [address] * TYPE AND SCREEN (09/08/2010 2:45 PM BALANCE STAFF INSPECTOR) HISTORY CHECK History Checked [facility] ABO/RH TYPE B Positive [facility] SPECIMEN LIFE 3 days from drawdate [facility] ANTIBODY SCREEN Negative [facility] Blood specimen (specimen) 09/08/2010 2:45 PM BALANCE STAFF INSPECTOR 09/08/2010 3:09 PM BALANCE STAFF INSPECTOR [place] Jeffrey MD BLOOD BANK ORDERABLE S INTERFACE SYSTEM Refer to clinic/hospital department [facility] CLIA# [id number] [address] [place] [address] documented in this encounter Visit Diagnoses Not on filedocumented in this encounter Administered Medications Inactive Administered Medications - up to 3 most recent administrations Medication Order MAR Action Action Date Dose Rate Site ceFAZolin (ANCEF) IVPB 1,000 mg 1,000 mg, IV, PRE-PROCEDURE ONCE, 1 dose, Starting on Mon09/08/10 at 1441, Until Mon09/08/10 at 1540, Routine Given 09/08/2010 3:40 PM BALANCE STAFF INSPECTOR 1,000 mg ibuprofen (MOTRIN) tablet 600 mg 600 mg, Oral, EVERY 6 HOURS PRN, Starting on Mon09/08/10 at 1607, Until Mon09/08/10 at 2044, Pain, Routine Given 09/08/2010 5:56 PM BALANCE STAFF INSPECTOR 600 mg lactated ringers solution IV, at 150 mL/hr, PRE-PROCEDURE CONTINUOUS, Starting on Mon09/08/10 at 1445, Until Mon09/08/10 at 2044, Routine New Bag 09/08/2010 3:10 PM BALANCE STAFF INSPECTOR 150 mL/hr documented in this encounter Active and Recently Administered Medications Times are shown in BALANCE STAFF INSPECTOR. Scheduled Medication Order 09/06/2010 09/07/2010 09/08/2010 ceFAZolin [...] Pain, Routine 1756 (Given - Provid er: Phuong Metz RN) documented in this encounter Care Teams Potato Chip Fryer Relationship Specialty Start Date End Date Annalisa Christopher MD [address] [place] [address] PCP - General 07/07/08 documented as of this encounter
--- OUTSIDE RECORDS SUMMARY | 2024-10-06 18:16 | XMS_ITS | Encounter Summary ---
Author Organization [facility] Address [address] [place] [address] Care Team Providers Care Natural Sciences Professor Name Role Phone Annalisa Christopher MD Primary Care Provider [phone] Reason for Visit * Reason Onset Date Comments Sinus Problem 01/14/2010 Encounter Details Date Type Department Care Team (Late st Contact Info) Description 01/14/2010 Telephone [facility] Primary Care - [address] [place] [address] Annalisa Christopher MD [address] [place] [address] [address] [place] [address] Sinus Problem Social History Tobacco [...] encounter Miscellaneous Notes * Telephone Encounter - Marisol Teran - 01/14/2010 9:20 AM CDT Spoke with patient. * Telephone Encounter - Annalisa Christopher MD - 01/14/2010 9:16 AM CDT Faxed z-elizabeth * Telephone Encounter - Marisol Teran W - 01/14/2010 9:12 AM CDT C/o sinus pressure , yellow congestion, cough-prod x 1 week , s/t, hoarse, no fever has tried zyrtec d. Wants rx. documented in this encounter Plan of Treatment Upcoming Encounters Date Type Department Care Team (Late st Contact Info) Description 04/25/2025 8:20 AM CDT Office Visit [facility] Primary Care - [facility] [address] [facility] [address] [place] [address] Annalisa Christopher MD [address] [facility] [address] [place] [address] documented as of this encounter Visit Diagnoses Not on filedocumented in this encounter Care Teams Natural Sciences Professor Relationship Specialty Start Date End Date Annalisa Christopher MD [address] [place] [address] PCP - General 07/07/08 documented as of this encounter
--- OUTSIDE RECORDS SUMMARY | 2024-10-06 18:16 | XMS_ITS | Encounter Summary ---
Author Organization [facility] Address [address] [place] [address] Care Team Providers Care Boring Machine Operator Production Name Role Phone Annalisa Christopher MD Primary Care Provider [phone] Reason for Visit * Reason Onset Date Comments Upper Respiratory Symptoms 10/06/2009 Encounter Details Date Type Department Care Team (Late st Contact Info) Description 10/06/2009 Telephone [facility] Primary Care - [address] [place] [address] Annalisa Christopher MD [address] [place] [address] [address] [place] [address] Upper Respiratory Symptoms Social History [...] * Telephone Encounter - Josefina Dye - 10/06/2009 10:03 AM CST Spoke with pt and added to sched CUTLET MAKER * Telephone Encounter - Annalisa Christopher MD - 10/06/2009 9:59 AM CST 3pm appt CUTLET MAKER * Telephone Encounter - Emely Cuadra - 10/06/2009 8:39 AM CST Hoarse, drainage, thick yellow mucous, prod cough, no wheeze or sob, Pt does have asthma, sore throat, no fever, sinus pressure, pressure in ears. Did have migraine x fri. Pt is using zyrtec d, otc cough meds. Pt would like rx or appt. CUTLET MAKER documented in this encounter Plan of Treatment Upcoming Encounters Date Type Department Care Team (Late st Contact Info) Description 04/25/2025 8:20 AM CDT Office Visit [facility] Primary Care - [facility] [address] [facility] [address] [place] [address] Annalisa Christopher MD [address] [facility] [address] [place] [address] documented as of this encounter Visit Diagnoses Not on filedocumented in this encounter Care Teams Boring Machine Operator Production Relationship Specialty Start Date End Date Annalisa Christopher MD [address] [facility] [address] [place] [address] PCP - General 07/07/08 documented as of this encounter
--- OUTSIDE RECORDS SUMMARY | 2024-10-06 18:16 | XMS_ITS | Encounter Summary ---
Author Organization [facility] Address [address] [place] [address] Care Team Providers Care Urban Renewal Manager Name Role Phone Annalisa Christopher MD Primary Care Provider [phone] Encounter Details Date Type Department Care Team (Late st Contact Info) Description 06/24/2005 Outpatient Historical [facility] Primary Care - [address] [place] [address] Kacey Potter MD NO ADDRESS [...] Care - [facility] [address] [facility] [address] [place] [address] Annalisa Christopher MD [address] [place] [address] [place] [address] documented as of this encounter Visit Diagnoses Not on filedocumented in this encounter Care Teams Urban Renewal Manager Relationship Specialty Start Date End Date Annalisa Christopher MD [address] [place] [address] PCP - General 07/07/08 documented as of this encounter
--- OUTSIDE RECORDS SUMMARY | 2024-10-06 18:16 | XMS_ITS | Encounter Summary ---
Author Organization [facility] Address [address] [place] [address] Care Team Providers Care Assembled Wood Products Repairer Name Role Phone Annalisa Christopher MD Primary Care Provider [phone] Reason for Visit * Reason Onset Date Comments Results 09/06/2010 Encounter Details Date Type Department Care Team (Late st Contact Info) Description 09/06/2010 Telephone [facility] OPERATIONS STAFF SPECIALIST SECURITY - [address] [address] [place] Patricio MD [address] [place] [address] [place] [address] Results Social History Tobacco Use Types [...] Telephone Encounter - [place] Patricio MD - 09/06/2010 1:32 PM CST Was in [facility] overnight with 1st trimester bleeding; US there reports 9 weeks and no FHT; will get confirmatory scan this week. OR LOGISTICS MANAGER * Telephone Encounter - Margaret Cain - 09/06/2010 12:16 PM CST Pt calling back, states she has not heard from DM yet, states she is on pins and needles waiting to sp with DM; please call pt. JR OR LOGISTICS MANAGER * Telephone Encounter - Emely Adams - 09/06/2010 10:54 AM CST Pt is looking for U/S results (media) from [facility] from this weekend. Went with early bleeding. AB OR LOGISTICS MANAGER documented in this encounter Plan of Treatment Upcoming Encounters Date Type Department Care Team (Late st Contact Info) Description 04/25/2025 8:20 AM CDT Office Visit [facility] Primary Care - [facility] [address] [facility] [address] [place] [address] Annalisa Christopher MD [address] [facility] [address] [place] [address] documented as of this encounter Visit Diagnoses Not on filedocumented in this encounter Care Teams Assembled Wood Products Repairer Relationship Specialty Start Date End Date Annalisa Christopher MD [address] [facility] [address] [place] [address] PCP - General 07/07/08 documented as of this encounter
--- OUTSIDE RECORDS SUMMARY | 2024-10-06 18:16 | XMS_ITS | Encounter Summary ---
Author Organization [facility] Address [address] [place] [address] Care Team Providers Care Livestock Rancher Name Role Phone Annalisa Christopher MD Primary Care Provider [phone] Reason for Visit * Reason Comments Dizziness x2 days Headache Neck Pain Nausea Encounter Details Date Type Department Care Team (Late st Contact Info) Description 07/07/2008 12:30 PM CDT Office Visit [facility] Primary Care - [address] [place] [address] Annalisa Christopher MD [address] [place] [address] [place] [address] Benign Paroxysmal Vertigo (Primary Dx) Social History Tobacco Use Types [...] Sign Reading Time Taken Comments Blood Pressure 100/60 07/07/2008 12:36 PM CDT Pulse - - Temperature 36.3 ??C (97.4 ??F) 07/07/2008 12:36 PM C DT Respiratory Rate - - Oxygen Saturation - - Inhaled Oxygen Concentration - - Weight 66.2 kg (146 lb) 07/07/2008 12:36 PM CDT Height - - Body Mass Index - - documented in this encounter Progress Notes * Annalisa Christopher MD - 07/07/2008 1:05 PM CDT Subjective: FABIANA HILL is a 32 y.o. female. Current outpatient prescriptions prior to encounter Medication Sig Dispense Refill ??? albuterol (PROVENTIL,VENTOLIN) 90 mcg/Actuation Inhalation Aero 2 puffs q4- 6hrs prn 1.00 0 ??? VALIUM 2 mg Oral Tab one po daily prn anxiety 20.00 0 Allergies Allergen Reactions ??? Sulfa (Sulfonamides) Past Medical History Diagnosis Date ??? Asthma HPI: Ms. Hill complains of the following (by systems): dizzines Symptom onset has been acute for a time period of 2 days. Severity is described as mild, moderate. Course over time: symptoms are worsening Also has some nausea Review of Systems: During the review of systems, the following significant history is obtained from the patient: Constitutional: dizziness Respiratory: denies cough, dyspnea, hemoptysis, stridor, wheeze, chest pain Cardiovascular: denies chest pain or discomfort, exertional chest pressure/discomfort, fatigue, pounding heart/chest, nausea, syncope, shortness of breath Exam/Objective: General Appearance: in no distress, Head: atraumatic, Normocephalic, without obvious abnormality, Eyes: conjunctivae/corneas clear. PERRL, EOM's intact., Ears: normal TM's and external ear canals AU,Nose: Nares normal. Septum midline. Mucosa normal. No drainage or sinus tenderness., Throat: Lips, mucosa (moist), and tongue normal. Teeth and gums normal and Neurologic: Alert and oriented X 3, normal strength and tone. Normal symmetric reflexes. Normal coordination and gait. Development appropriate. Assessment and Plan: Appropriate medications prescribed (see detailed AVS). Appropriate patient instructions provided (see detailed AVS). Follow-up as I have indicated. Medications and options explained to include common side effects. Understanding of medications, course, diagnosis, and expectations were expressed by patient/guardian. documented in this encounter Plan of Treatment Upcoming Encounters Date Type Department Care Team (Late st Contact Info) Description 04/25/2025 8:20 AM CDT Office Visit [facility] Care - [place] [address] [place] [address] Annalisa Christopher MD [address] [place] [address] documented as of this encounter Visit Diagnoses Diagnosis Benign paroxysmal vertigo- Primary Benign paroxysmal positional vertigo documented in this encounter Care Teams Livestock Rancher Relationship Specialty Start Date End Date Annalisa Christopher MD [address] [place] [address] PCP - General 07/07/08 documented as of this encounter
--- OUTSIDE RECORDS SUMMARY | 2024-10-06 18:16 | XMS_ITS | Encounter Summary ---
Author Organization [facility] Address [address] [place] [address] Care Team Providers Care Leather Goods Sales Representative Name Role Phone Annalisa Christopher MD Primary Care Provider [phone] Encounter Details Date Type Department Care Team (Latest Contact Info) Description 12/27/2007 Orders Only HIS CONVERSION Conversion, History Social History Tobacco Use Types Packs/Day Years Used Date Smoking Tobacco: Never Assessed Sex and Gender Information Value Date Recorded Sex Assigned at Not on file Gender Identity Not on file Sexual Orientation Not on file documented as of this encounter Progress Notes * Conversion, History - 12/30/2008 8:35 AM CDT * Conversion, History - 12/30/2008 7:58 AM CDT * Conversion, History - 12/29/2008 11:04 AM CDT * Conversion, History - 12/23/2008 12:44 PM CDT * Conversion, History - 12/17/2008 3:51 PM CDT documented in this encounter Plan of Treatment Upcoming Encounters Date Type Department Care Team (Late st Contact Info) Description 04/25/2025 8:20 AM CDT Office Visit [facility] Primary Care - [address] [place] [address] Annalisa Christopher MD [address] [place] [address] documented as of this encounter Visit Diagnoses Not on filedocumented in this encounter Care Teams Leather Goods Sales Representative Relationship Specialty Start Date End Date Annalisa Christopher MD [address] [place] [address] PCP - General 07/07/08 documented as of this encounter
--- OUTSIDE RECORDS SUMMARY | 2024-10-06 18:16 | XMS_ITS | Encounter Summary ---
Author Organization [facility] Address [address] [place] [address] Care Team Providers Care Etiologist Name Role Phone Annalisa Christopher MD Primary Care Provider [phone] Encounter Details Date Type Department Care Team (Latest Contact Info) Description 07/06/2005 Outpatient Historical [facility] Kacey Potter MD NO ADDRESS ON FILE [...] 04/25/2025 8:20 AM CDT Office Visit [facility] Primary Care - [facility] [address] [place] [address] [place] [address] Annalisa Christopher MD [address] [place] [address] [address] [place] [address] documented as of this encounter Visit Diagnoses Diagnosis Abdominal pain, unspecified site- Primary documented in this encounter Care Teams Etiologist Relationship Specialty Start Date End Date Annalisa Christopher MD [address] [place] [address] [place] [address] PCP - General 07/07/08 documented as of this encounter
--- OUTSIDE RECORDS SUMMARY | 2024-10-06 18:16 | XMS_ITS | Encounter Summary ---
Author Organization Address [address] [place] [address] Care Team Providers Care Inspector Soldering Name Role Phone Annalisa Christopher MD Primary Care Provider [phone] Reason for Visit * Reason Comments Upper Respiratory Symptoms Cough PRODUCTIVE--YELLOW A ND THICK Chest Congestion AND IN BACK OF SINUS Encounter Details Date Type Department Care Team (Late st Contact Info) Description 10/06/2009 3:00 PM HANDBAG FRAMER Office Visit [facility] Care - [address] [place] [address] Annalisa Christopher MD [address] [place] [address] [address] [place] [address] Acute URI (Primary Dx) Social History Tobacco Use Types [...] Reading Time Taken Comments Blood Pressure 112/80 10/06/2009 2:58 PM HANDBAG FRAMER Pulse - - Temperature 37.2 ??C (98.9 ??F) 10/06/2009 2:58 PM CS T Respiratory Rate - - Oxygen Saturation - - Inhaled Oxygen Concentration - - Weight 75.3 kg (166 lb) 10/06/2009 2:58 PM HANDBAG FRAMER Height - - Body Mass Index - - documented in this encounter Progress Notes * Annalisa Christopher MD - 10/06/2009 3:21 PM CST HISTORY OF PRESENT ILLNESS Fabiana Briggs, a 34 y.o. female. Cough This is a new problem. The current episode started more than 1 week ago. The problem occurs constantly. The cough is productive of purulent sputum. There has been no fever. Associated symptoms include ear congestion and sore throat. Pertinent negatives include no chest pain, no chills, no weight loss and no headaches. REVIEW OF SYSTEMS Review of Systems Constitutional: Negative for fever, chills, weight loss and malaise/fatigue. HENT: Positive for congestion and sore throat. Negative for hearing loss and tinnitus. Respiratory: Positive for cough. Negative for hemoptysis and sputum production. Cardiovascular: Negative for chest pain and palpitations. Gastrointestinal: Negative for nausea, vomiting and abdominal pain. Genitourinary: Negative for dysuria, urgency and frequency. Skin: Negative for rash and itching. Neurological: Negative for headaches. PHYSICAL EXAM BP 112/80 Temp(Src) 98.9 ??F (37.2 ??C) (Oral) Wt 166 lb (75.297 kg) Physical Exam Constitutional: She is oriented. She appears not diaphoretic. No distress. HENT: Head: Normocephalic and atraumatic. Right Ear: External ear normal. Left Ear: External ear normal. Nose: Mucosal edema present. Right sinus exhibits maxillary sinus tenderness. Left sinus exhibits maxillary sinus tenderness. Mouth/Throat: No oropharyngeal exudate. Eyes: Conjunctivae and [...] cervical adenopathy. Neurological: She is alert and oriented. Skin: Skin is warm and dry. She is not diaphoretic. ASSESSMENT and PLAN: Encounter Diagnoses Code Name Primary? Qualifier ??? 465.9C Acute URI Yes Plan: AZITHROMYCIN 250 MG TAB, CODEINE-GUAIFENESIN 10 MG-100 MG/5 ML SYRUP BAG FRAMER documented in this encounter Plan of Treatment Upcoming Encounters Date Type Department Care Team (Late st Contact Info) Description 04/25/2025 8:20 AM CDT Office Visit [facility] Primary Care - [facility] [address] [facility] [address] [place] [address] Annalisa Christopher MD [address] [place] [address] documented as of this encounter Visit Diagnoses Diagnosis Acute URI- Primary Acute upper respiratory infections of unspecified site documented in this encounter Care Teams Inspector Soldering Relationship Specialty Start Date End Date Annalisa Christopher MD [address] [facility] [address] [place] [address] PCP - General 07/07/08 documented as of this encounter
--- OUTSIDE RECORDS SUMMARY | 2024-10-06 18:16 | XMS_ITS | Encounter Summary ---
Author Organization [facility] Address [address] [place] [address] Care Team Providers Care Identification Technician Name Role Phone Annalisa Christopher MD Primary Care Provider [phone] Encounter Details Date Type Department Care Team (Late st Contact Info) Description 04/25/2005 Outpatient Historical [facility] Primary Care - [address] [place] [address] Kacey Potter MD NO ADDRESS [...] [facility] Primary Care - [facility] [address] [facility] [address] [place] [address] Annalisa Christopher MD [address] [place] [address] [place] [address] documented as of this encounter Visit Diagnoses Not on filedocumented in this encounter Care Teams Identification Technician Relationship Specialty Start Date End Date Annalisa Christopher MD [address] [place] [address] PCP - General 07/07/08 documented as of this encounter
--- OUTSIDE RECORDS SUMMARY | 2024-10-06 18:16 | XMS_ITS | Encounter Summary ---
Author Organization [facility] Address [address] [place] [address] Care Team Providers Care Career Technical Education Teacher Name Role Phone Annalisa Christopher MD Primary Care Provider [phone] Encounter Details Date Type Department Care Team (Late st Contact Info) Description 02/10/2006 Outpatient Historical [facility] Primary Care - [address] [place] [address] Kacey Potter MD NO ADDRESS [...] Visit [facility] Primary Care - [facility] [address] [facility] [address] [place] [address] Annalisa Christopher MD [address] [place] [address] [place] [address] documented as of this encounter Visit Diagnoses Not on filedocumented in this encounter Care Teams Career Technical Education Teacher Relationship Specialty Start Date End Date Annalisa Christopher MD [address] [place] [address] PCP - General 07/07/08 documented as of this encounter
--- OUTSIDE RECORDS SUMMARY | 2024-10-06 18:16 | XMS_ITS | Encounter Summary ---
Author Organization [facility] Address [address] [place] [address] Care Team Providers Care Emd Teacher Name Role Phone Annalisa Christopher MD Primary Care Provider [phone] Reason for Visit * Reason Onset Date Comments Medication Refill 10/03/2008 Encounter Details Date Type Department Care Team (Late st Contact Info) Description 10/03/2008 Refill [facility] Primary Care - [address] [place] [address] Annalisa Christopher MD [address] [place] [address] [place] [address] Social History Tobacco Use Types Packs/Day Years Used Date Smoking Tobacco: Never Alcohol Use Standard Drinks/Week Comments Yes 0 (1 standard drink = 0.6 oz pur e alcohol) Sex and Gender Information Value Date Recorded Sex Assigned at Not on file Gender Identity Not on file Sexual Orientation Not on file documented as of this encounter Miscellaneous Notes * Telephone Encounter - 10/03/2008 11:20 AM CST Spoke to pt. lmor with pharm. * Telephone Encounter - Marisol Teran - 10/03/2008 10:28 AM CST Lf-07/07/08 #20 GATION DOCKET MANAGER documented in this encounter Plan of Treatment Upcoming Encounters Date Type Department Care Team (Late st Contact Info) Description 04/25/2025 8:20 AM CDT Office Visit [facility] Primary Care - [facility] [address] [place] [address] Annalisa Christopher MD [address] [place] [address] documented as of this encounter Visit Diagnoses Not on filedocumented in this encounter Care Teams Emd Teacher Relationship Specialty Start Date End Date Annalisa Christopher MD [address] [place] [address] PCP - General 07/07/08 documented as of this encounter
--- OUTSIDE RECORDS SUMMARY | 2024-10-06 18:16 | XMS_ITS | Encounter Summary ---
Author Organization [facility] Address [address] [place] [address] Care Team Providers Care Ceo Ziff Davis Name Role Phone Annalisa Christopher MD Primary Care Provider [phone] Encounter Details Date Type Department Care Team (Late st Contact Info) Description 10/27/2004 Outpatient Historical [facility] ROAD GRADER OPERATOR - [facility] [address] [facility] [address] [place] [address] Gavin Hadley MD [address] [place] [address] Social History Tobacco Use Types [...] Description 04/25/2025 8:20 AM CDT Office Visit [facility] Primary Care - [facility] [address] [place] [address] Annalisa Christopher MD [address] [address] [place] [address] documented as of this encounter Visit Diagnoses Not on filedocumented in this encounter Care Teams Ceo Ziff Davis Relationship Specialty Start Date End Date Annalisa Christopher MD [address] [place] [address] PCP - General 07/07/08 documented as of this encounter
--- OUTSIDE RECORDS SUMMARY | 2024-10-06 18:16 | XMS_ITS | Encounter Summary ---
Author Organization [facility] Address [address] [place] [address] Care Team Providers Care Electronics Recycler Name Role Phone Annalisa Christopher MD Primary Care Provider [phone] Encounter Details Date Type Department Care Team (Late st Contact Info) Description 09/06/2010 Abstract [facility] PULP DRIER FIRER - Medical [address] [address] Douglas Patricio MD [address] [address] Social History Tobacco Use Types Packs/Day [...] [facility] Primary Care - [facility] [address] [place] [address] [address] [place] [address] Annalisa Christopher MD [address] [place] [address] [address] [place] [address] documented as of this encounter Procedures Procedure Name Priority Date/Time Associated Diagnosis Comments US OB LESS THAN 14 WKS SINGLE GEST Routine 09/06/2010 documented in this encounter Results * US OB LESS THAN 14 WKS SINGLE GEST (09/06/2010) Anatomical Region Laterality Modality Pelvis Other Douglas Patricio MD US ORDERABLES documented in this encounter Visit Diagnoses Not on filedocumented in this encounter Care Teams Electronics Recycler Relationship Specialty Start Date End Date Annalisa Christopher MD [address] [place] [address] PCP - General 07/07/08 documented as of this encounter
--- OUTSIDE RECORDS SUMMARY | 2024-10-06 18:17 | XMS_ITS | Encounter Summary ---
Author Organization [facility] Address [address] [place] [address] Care Team Providers Care Incident Response Coordinator Name Role Phone Annalisa Christopher MD Primary Care Provider [phone] Encounter Details Date Type Department Care Team (Late st Contact Info) Description 07/29/2003 Outpatient Historical [facility] IT HELP DESK ASSOCIATE - [facility] [address] [facility] [address] [place] [address] Gavin Hadley MD [address] [place] [address] Social History Tobacco Use Types [...] [facility] Primary Care - [facility] [address] [place] [address] Annalisa Christopher MD [address] [address] [place] [address] documented as of this encounter Visit Diagnoses Not on filedocumented in this encounter Care Teams Incident Response Coordinator Relationship Specialty Start Date End Date Annalisa Christopher MD [address] [place] [address] PCP - General 07/07/08 documented as of this encounter
--- OUTSIDE RECORDS SUMMARY | 2024-10-06 18:17 | XMS_ITS | Encounter Summary ---
Author Organization [facility] Address [address] [place] [address] Care Team Providers Care Artificial Insemination Technician Name Role Phone Annalisa Christopher MD Primary Care Provider [phone] Encounter Details Date Type Department Care Team (Late st Contact Info) Description 05/08/2003 Outpatient Historical [facility] METALLOGRAPHY TEACHER - [facility] [address] [facility] [address] [place] [address] Gavin Hadley MD [address] [place] [address] Social History Tobacco Use Types [...] AM CDT Office Visit [facility] Primary Care - [facility] [address] [place] [address] Annalisa Christopher MD [address] [place] [address] documented as of this encounter Visit Diagnoses Not on filedocumented in this encounter Care Teams Artificial Insemination Technician Relationship Specialty Start Date End Date Annalisa Christopher MD [address] [place] [address] PCP - General 07/07/08 documented as of this encounter
--- OUTSIDE RECORDS SUMMARY | 2024-10-06 18:17 | XMS_ITS | Encounter Summary ---
Author Organization [facility] Address [address] [place] [address] Care Team Providers Care Silk Screen Printing Racker Name Role Phone Annalisa Christopher MD Primary Care Provider [phone] Encounter Details Date Type Department Care Team (Late Contact Info) Description 08/29/2003 Outpatient Historical [facility] PROFESSOR OF BUSINESS - Medical [facility] [id number] [place] [id number] Michael Ledesma MD [id number] [place] [address] Social History Tobacco Use Types Packs/Day Years [...] [facility] Primary Care - [facility] [address] [place] [address] Annalisa Christopher MD [facility] [address] [place] [address] documented as of this encounter Visit Diagnoses Not on filedocumented in this encounter Care Teams Silk Screen Printing Racker Relationship Specialty Start Date End Date Annalisa Christopher MD [facility] [address] [place] [address] PCP - General 07/07/08 documented as of this encounter
--- OUTSIDE RECORDS SUMMARY | 2024-10-06 18:17 | XMS_ITS | Encounter Summary ---
Author Organization [facility] Address [address] [place] [address] Care Team Providers Care Education Research Analyst Name Role Phone Annalisa Christopher MD Primary Care Provider [phone] Encounter Details Date Type Department Care Team (Late st Contact Info) Description 07/18/2003 Outpatient Historical [facility] STEAM PRESSER - Medical [address] [address] Joe Meng MD [address] [place] [address] Social History Tobacco Use Types Packs/Day [...] Office Visit [facility] Primary Care - [facility] [address] [place] [address] [address] [place] [address] Annalisa Christopher MD [address] [place] [address] [address] [place] [address] documented as of this encounter Visit Diagnoses Not on filedocumented in this encounter Care Teams Education Research Analyst Relationship Specialty Start Date End Date Annalisa Christopher MD [address] [facility] [address] [place] [address] PCP - General 07/07/08 documented as of this encounter
--- OUTSIDE RECORDS SUMMARY | 2024-10-06 18:17 | XMS_ITS | Encounter Summary ---
Author Organization [facility] Address [address] [place] [address] Care Team Providers Care Software Qa System Specialist Name Role Phone Annalisa Christopher MD Primary Care Provider [phone] Encounter Details Date Type Department Care Team (Late st Contact Info) Description 10/23/2003 Outpatient Historical [facility] SCHOOL BASED THERAPIST - [facility] [address] [facility] [address] [place] [address] Gavin Hadley MD [address] [place] [address] Social History Tobacco Use Types [...] [facility] Primary Care - [facility] [address] [place] [address] Annalisa Christopher MD [address] [facility] [facility] [address] [place] [address] documented as of this encounter Visit Diagnoses Not on filedocumented in this encounter Care Teams Software Qa System Specialist Relationship Specialty Start Date End Date Annalisa Christopher MD [address] [place] [address] PCP - General 07/07/08 documented as of this encounter
--- OUTSIDE RECORDS SUMMARY | 2024-10-06 18:17 | XMS_ITS | Encounter Summary ---
Author Organization [facility] Address [address] [place] [address] Care Team Providers Care Panel Gluer Name Role Phone Annalisa Christopher MD Primary Care Provider [phone] Encounter Details Date Type Department Care Team (Late st Contact Info) Description 09/04/2003 Outpatient Historical [facility] NURSE MIDWIFE/CLINICAL INSTRUCTOR - [facility] [address] [facility] [address] [place] [address] Gavin Hadley MD [address] [place] [address] Social History Tobacco Use Types [...] [facility] Primary Care - [facility] [address] [place] [address] Annalisa Christopher MD [address] [address] [facility] [address] [place] [address] documented as of this encounter Visit Diagnoses Not on filedocumented in this encounter Care Teams Panel Gluer Relationship Specialty Start Date End Date Annalisa Christopher MD [address] [place] [address] PCP - General 07/07/08 documented as of this encounter
--- OUTSIDE RECORDS SUMMARY | 2024-10-06 18:17 | XMS_ITS | Encounter Summary ---
Author Organization [facility] Address [address] [place] [address] Care Team Providers Care Safety Companion Name Role Phone Annalisa Christopher MD Primary Care Provider [phone] Encounter Details Date Type Department Care Team (Latest Contact Info) Description 05/29/2001 Inpatient Historical HIS PATIENT IN A BED Junior Cook MD [address] [place] [address] Intrauterine affecting management of mother, delivered (Primary Dx) Social History Tobacco Use Types [...] 8:20 AM CDT Office Visit [facility] Primary Care - [facility] [address] [facility] [address] [place] [address] Annalisa Christopher MD [address] [facility] [address] [place] [address] documented as of this encounter Visit Diagnoses Diagnosis Intrauterine affecting management of mother, delivered- Primary documented in this encounter Care Teams Safety Companion Relationship Specialty Start Date End Date Annalisa Christopher MD [address] [facility] [address] [place] [address] PCP - General 07/07/08 documented as of this encounter
--- OUTSIDE RECORDS SUMMARY | 2024-10-06 18:17 | XMS_ITS | Encounter Summary ---
Author Organization [facility] Address [address] [place] [address] Care Team Providers Care Paint Roller Cover Machine Setter Name Role Phone Annalisa Christopher MD Primary Care Provider [phone] Encounter Details Date Type Department Care Team (Late st Contact Info) Description 06/05/2003 Outpatient Historical [facility] LABORER - [facility] [address] [facility] [address] [place] [address] Gavin Hadley MD [address] [place] [address] Social History Tobacco Use Types [...] Office Visit [facility] Primary Care - [facility] [address] [place] [address] Annalisa Christopher MD [address] [place] [address] documented as of this encounter Visit Diagnoses Not on filedocumented in this encounter Care Teams Paint Roller Cover Machine Setter Relationship Specialty Start Date End Date Annalisa Christopher MD [address] [place] [address] PCP - General 07/07/08 documented as of this encounter
--- OUTSIDE RECORDS SUMMARY | 2024-10-06 18:17 | XMS_ITS | Encounter Summary ---
Author Organization [facility] Address [address] [place] [address] Care Team Providers Care Ice Plant Operator Name Role Phone Annalisa Christopher MD Primary Care Provider [phone] Encounter Details Date Type Department Care Team (Late st Contact Info) Description 11/11/2003 Outpatient Historical [facility] FINE GRADER - [facility] [address] [place] [address] Gavin Hadley MD [address] [place] [address] Social History Tobacco Use Types [...] Visit [facility] Primary Care - [facility] [address] [place] [address] Annalisa Christopher MD [address] [place] [address] documented as of this encounter Visit Diagnoses Not on filedocumented in this encounter Care Teams Ice Plant Operator Relationship Specialty Start Date End Date Annalisa Christopher MD [address] [place] [address] PCP - General 07/07/08 documented as of this encounter
--- OUTSIDE RECORDS SUMMARY | 2024-10-06 18:17 | XMS_ITS | Encounter Summary ---
Author Organization [facility] Address [address] [place] [address] Care Team Providers Care Robotic Machine Tender Production Name Role Phone Annalisa Christopher MD Primary Care Provider [phone] Encounter Details Date Type Department Care Team (Late st Contact Info) Description 04/08/2003 Outpatient Historical [facility] DATA CENTER ARCHITECT - [facility] [address] [place] [address] Gavin Hadley MD [address] [place] [address] Social History Tobacco Use Types [...] Description 04/25/2025 8:20 AM CDT Office Visit [facility] Primary Care - [facility] [address] [place] [address] Annalisa Christopher MD [address] [place] [address] documented as of this encounter Visit Diagnoses Not on filedocumented in this encounter Care Teams Robotic Machine Tender Production Relationship Specialty Start Date End Date Annalisa Christopher MD [address] [place] [address] PCP - General 07/07/08 documented as of this encounter
--- OUTSIDE RECORDS SUMMARY | 2024-10-06 18:17 | XMS_ITS | Encounter Summary ---
Author Organization [facility] Address [address] [place] [address] Care Team Providers Care Home Appliance Technician Name Role Phone Annalisa Christopher MD Primary Care Provider [phone] Encounter Details Date Type Department Care Team (Late st Contact Info) Description 07/01/2003 Outpatient Historical [facility] FOUNDER PRESIDENT AND CEO - [facility] [address] [place] [address] Gavin Hadley MD [address] [place] [address] Social History Tobacco Use Types [...] [facility] Primary Care - [facility] [address] [place] [address] Annalisa Christopher MD [address] [place] [address] documented as of this encounter Visit Diagnoses Not on filedocumented in this encounter Care Teams Home Appliance Technician Relationship Specialty Start Date End Date Annalisa Christopher MD [address] [place] [address] PCP - General 07/07/08 documented as of this encounter
--- OUTSIDE RECORDS SUMMARY | 2024-10-06 18:17 | XMS_ITS | Encounter Summary ---
Author Organization [facility] Address [address] [place] [address] Care Team Providers Care Waste Disposal Leakage Tester Name Role Phone Annalisa Christopher MD Primary Care Provider [phone] Encounter Details Date Type Department Care Team (Late st Contact Info) Description 10/07/2003 Outpatient Historical [facility] HOUSEKEEPING ASSISTANT - [facility] [address] [place] [address] Gavin Hadley MD [address] [place] [address] Social History Tobacco Use Types [...] [facility] - [facility] [address] [place] [address] Annalisa Christopher MD [address] [place] [address] documented as of this encounter Visit Diagnoses Not on filedocumented in this encounter Care Teams Waste Disposal Leakage Tester Relationship Specialty Start Date End Date Annalisa Christopher MD [address] [place] [address] PCP - General 07/07/08 documented as of this encounter
--- OUTSIDE RECORDS SUMMARY | 2024-10-06 18:44 | XMS_ITS | Patient Health Summary ---
Author Organization [facility] Address [address] [place] [address] Care Team Providers Care Patrol Lady Name Role Phone Leah Santo MD Primary Care Provider Nataliea [facility] Note from [facility],non-owned Affiliates and Associated Physician Practices is amultiple site organization consisting of ambulatory clinics and hospital sitesin [place], [place], [place] and [place]. This disclosure is being madepursuant to the Care Everywhere program and may not contain all information available regarding this patient. Last updated 18.[facility] Allergies * Sulfa Drugs Social History Tobacco [...] Unknown 05/25/2017 12:24 PM CDT Rudi Naik APRN-[facility] - [facility] [place] [facility] Care Teams Patrol Lady Relationship Specialty Start Date End Date Leah Santo MD PCP - General Internal Medicine 05/23/17
--- OUTSIDE RECORDS SUMMARY | 2024-10-06 18:44 | XMS_ITS | Encounter Summary ---
Author Organization [facility] Address [address] [place] [address] Care Team Providers Care Binder Caser Name Role Phone Leah Santo MD Primary Care Provider Unavaila ble Reason for Visit * Reason Comments PPD Skin Test Placement Encounter Details Date Type Department Care Team (Late st Contact Info) Description 05/23/2017 7:00 PM CDT Office Visit [facility] AT [address] [id number] Provider, [facility] [place] PPD screening test (Primary Dx) Social History [...] Forearm documented in this encounter Care Teams Binder Caser Relationship Specialty Start Date End Date Leah Santo MD PCP - General Internal Medicine 05/23/17 documented as of this encounter
--- OUTSIDE RECORDS SUMMARY | 2024-10-06 18:44 | XMS_ITS | Clinical Summary ---
Author Organization [facility] Address [address] [place] [address] Care Team Providers Care Methods Engineer Name Role Phone Leah Santo MD Primary Care Provider Unavaila ble Source Comments [facility],non-owned Affiliates and Associated Physician Practices is amultiple site organization consisting of ambulatory clinics and hospital sitesin [place], [place], [place] and [place]. This disclosure is being madepursuant to the Care Everywhere program and may not contain all information available regarding this patient. Last updated 18.[facility] Allergies Active Allergy Reactions Criticality Noted Date [...] age to complete this topic Care Teams Methods Engineer Relationship Specialty Start Date End Date Leah Santo MD PCP - General Internal Medicine 05/23/17
--- OUTSIDE RECORDS SUMMARY | 2024-10-06 18:44 | XMS_ITS | Referral Summary ---
Author Organization [facility] Address [address] [place] [address] Care Team Providers Care Rehabilitation Director Name Role Phone Leah Santo MD Primary Care Provider Unavaila ble Source Comments [facility],non-owned Affiliates and Associated Physician Practices is amultiple site organization consisting of ambulatory clinics and hospital sitesin [place], [place], [place] and [place]. This disclosure is being madepursuant to the Care Everywhere program and may not contain all information available regarding this patient. Last updated 18.[facility] Allergies Active Allergy Reactions Criticality Noted Date Comments Sulfa Drugs 05/23/2017 Social History Tobacco Use Types Packs/Day Years Used Date Smoking Tobacco: Never Assessed Sex and Gender Information Value Date Recorded Sex Assigned at Not on file Gender Identity Not on file Sexual Orientation Not on file Plan of Treatment Not on file Administered Medications Care Teams Rehabilitation Director Relationship Specialty Start Date End Date Leah Santo MD PCP - General Internal Medicine 05/23/17
--- OUTSIDE RECORDS SUMMARY | 2024-10-06 18:45 | XMS_ITS | Encounter Summary ---
Author Organization [facility] Address [address] [place] [address] Care Team Providers Care Rubber Calender Helper Name Role Phone Annalisa Christopher MD Primary Care Provider [phone] Reason for Visit * Reason Comments Medication Refill Encounter Details Date Type Department Care Team (Late Contact Info) Description 12/09/[address] [place] [address] Elkin Alvarez MD NO ADDRESS ON [...] AM CDT Office Visit [facility] [address] [place] [address] [address] [place] [address] Annalisa Christopher MD [address] [place] [address] [address] [place] [address] documented as of this encounter Visit Diagnoses Diagnosis Mild intermittent asthma without complication Unspecified asthma documented in this encounter Care Teams Rubber Calender Helper Relationship Specialty Start Date End Date Annalisa Christopher MD [address] [place] [address] PCP - General 07/07/08 documented as of this encounter
--- OUTSIDE RECORDS SUMMARY | 2024-10-06 18:45 | XMS_ITS | Encounter Summary ---
Author Organization [facility] Address [address] [place] [address] Care Team Providers Care Management Associate Name Role Phone Annalisa Christopher MD Primary Care Provider [phone] Reason for Visit * Reason Comments Med Refill Encounter Details Date Type Department Care Team (Late st Contact Info) Description 05/06/2024 Refill [facility] [address] [place] [address] [place] [address] Annalisa Christopher MD [address] [place] [address] [address] [place] [address] Mild intermittent asthma without complication [...] Description 04/25/2025 8:20 AM CDT Office Visit [facility] [address] [place] [address] Annalisa Christopher MD [address] [place] [address] [address] [place] [address] documented as of this encounter Visit Diagnoses Diagnosis Mild intermittent asthma without complication Unspecified asthma documented in this encounter Care Teams Management Associate Relationship Specialty Start Date End Date Annalisa Christopher MD [address] [place] [address] PCP - General 07/07/08 documented as of this encounter
--- OUTSIDE RECORDS SUMMARY | 2024-10-06 18:45 | XMS_ITS | Encounter Summary ---
Author Organization [facility] Address [address] [place] [address] Care Team Providers Care Making Line Worker Name Role Phone Annalisa Christopher MD Primary Care Provider [phone] Reason for Visit * Reason Comments Medication Refill Encounter Details Date Type Department Care Team (Late Contact Info) Description 05/30/[address] [place] [address] Annalisa Christopher MD [address] [place] [address] [address] [place] [address] Mild intermittent asthma without complication [...] CDT Office Visit [facility] [address] [place] [address] Annalisa Christopher MD [address] [place] [address] documented as of this encounter Visit Diagnoses Diagnosis Mild intermittent asthma without complication Unspecified asthma documented in this encounter Additional Health Concerns Assessment Noted Time PHQ-9 Depression Total Score: 1 06/06/20 16 9:00 AM CDT documented as of this encounter Care Teams Making Line Worker Relationship Specialty Start Date End Date Annalisa Christopher MD [address] [place] [address] PCP - General 07/07/08 documented as of this encounter
--- OUTSIDE RECORDS SUMMARY | 2024-10-06 18:45 | XMS_ITS | Encounter Summary ---
Author Organization [facility] Address [address] [place] [address] Care Team Providers Care Agriculture Engineer Name Role Phone Annalisa Christopher MD Primary Care Provider [phone] Reason for Visit * Reason Onset Date Comments Upper Respiratory Symptoms 07/25/2023 Encounter Details Date Type Department Care Team (Late st Contact Info) Description 07/25/2023 Telephone [facility] Primary Care - [address] [place] [address] Annalisa Christopher MD [address] [place] [address] [place] [address] Upper Respiratory Symptoms Social History Tobacco [...] 07/25/2023 9:24 AM CDT Pt went to [facility] in [place] yest and was told has sinus infection. [...] [facility] Primary Care - [address] [place] [address] Annalisa Christopher MD [address] [place] [address] [place] [address] documented as of this encounter Visit Diagnoses Not on filedocumented in this encounter Care Teams Agriculture Engineer Relationship Specialty Start Date End Date nAnalisa Christopher MD [address] [place] [address] [place] [address] PCP - General 07/07/08 documented as of this encounter
--- OUTSIDE RECORDS SUMMARY | 2024-10-06 18:45 | XMS_ITS | Encounter Summary ---
Author Organization [facility] Address [address] [place] [address] Care Team Providers Care Sap Functional Analyst Name Role Phone Annalisa Christopher MD Primary Care Provider [phone] Reason for Visit * Reason Comments Medication Refill Encounter Details Date Type Department Care Team (Late Contact Info) Description 08/15/2021 Refill [facility] [address] [place] [address] [place] [address] Annalisa Christopher MD [address] [place] [address] [address] [place] [address] Nephrolithiasis Social History Tobacco Use [...] Description 04/25/2025 8:20 AM CDT Office Visit [facility] [address] [place] [address] Annalisa Christopher MD [address] [place] [address] documented as of this encounter Visit Diagnoses Diagnosis Nephrolithiasis Calculus of kidney documented in this encounter Care Teams Sap Functional Analyst Relationship Specialty Start Date End Date Annalisa Christopher MD [address] [place] [address] PCP - General 07/07/08 documented as of this encounter
--- OUTSIDE RECORDS SUMMARY | 2024-10-06 18:45 | XMS_ITS | Encounter Summary ---
Author Organization [facility] Address [address] [place] [address] Care Team Providers Care Core Paster Name Role Phone Annalisa Christopher MD Primary Care Provider [phone] Reason for Referral * CT Scan (Routine) - Closed Specialty Diagnoses / Procedures Referred By Contac t Referred To Contact Radiology Diagnoses Flank pain Procedures CT ABDOMEN PELVIS WO CONTRAST Chloe Hollingsworth NP [address] [facility] [address] [place] [address] Scan [address] [facility] [address] [place] [address] Referral ID Status Reason Start Date Expiration Date V isits Requested Visits Authorized [id number] Closed [facility] CTS 07/23/2021 08/23/2022 1 1 Reason for Visit * Reason Comments ER Follow Up treated for a uti bu t not any better Encounter Details Date Type Department Care Team (Late st Contact Info) Description 07/23/2021 1:20 PM CDT Office Visit [facility] - [address] [place] [address] Chloe Hollingsworth NP [address] [facility] [address] [place] [address] LUQ abdominal pain (Primary Dx); [...] Device 0 ??? fluticasone (FLONASE) 50 mcg/spray [place], Suspension Administer 2 Sprays in each nostril [...] AUGMENTATION 2006 [facility] ??? LA DELIVERY ONLY 2003 ??? LA DELIVERY ONLY 08/31/2011 SECTION performed by Douglas Jeffrey MD at [facility] L&D ??? LA DILATION/CURETTAGE,DIAGNOSTIC 09/08/2010 DILATATION AND CURETTAGE SUCTION performed by DOUGLAS JEFFREY at [facility] OR MAIN Family History Problem Relation Name Age of Onset ??? Hypertension Father ??? Heart Disease Father UT 60's ??? Stroke Father ??? Diabetes Mother [...] level: Not on file Occupational History Employer: [employer] Tobacco Use ??? Smoking status: Former [...] and Family: Not on file ??? Attends Orthodox Services: Not on file ??? Active Member [...] call within two business days, please call [phone] or , Monday through Monday between 8 a.m. and 5 p.m. to schedule your test. documented in this encounter Plan of Treatment Upcoming Encounters Date Type Department Care Team (Late st Contact Info) Description 04/25/2025 8:20 AM CDT Office Visit [facility] Primary Care - [facility] [address] [facility] [address] [place] [address] Annalisa Christopher MD [address] [facility] [address] [place] [address] documented as of this encounter [...] colon without mesenteric inflammatory process. DICTATION LOCATION: [address] 07/23/2021 2:[address] ABDOMEN [...] colon without mesenteric inflammatory process. DICTATION LOCATION: [address] Chloe Hollingsworth NP CT ORDERABLES * BASIC METABOLIC PANEL (07/23/2021 1:47 PM CDT) GLUCOSE 86 65 - 99 mg/dL [facility] Comment: ? Fasting reference interval BUN 11 7 - 25 mg/dL [facility] CREATININE 0.84 0.50 - 1.10 mg/dL [facility] GFR 83 > OR = 60 mL/min/1. 73m2 [facility] GFR, 97 > OR = 60 mL/min/1. 73m2 [facility] BUN/CREAT RATIO NOT APPLICABLE 6 - 22 (calc) [facility] SODIUM 138 135 - 146 mmol/L [facility] POTASSIUM 4.3 3.5 - 5.3 mmol/L [facility] CHLORIDE 104 98 - 110 mmol/L [facility] CO2 27 20 - 32 mmol/L [facility] CALCIUM 9.6 8.6 - 10.2 mg/dL [facility] Comment: Test Performed at: [facility] [address] [place], [place] ??[address] Cory Schreiber D.O., MPH Blood 07/23/2021 1:47 PM CDT 07/23/2021 1:47 PM CDT Chloe Hollingsworth NP CHEMISTRY ORDER ONUR [facility] [address] [place] [address] * (ABNORMAL) CBC WITH DIFFERENTIAL (07/23/2021 1:47 PM CDT) WBC 6.0 3.8 - 10.8 Thousand/ uL [facility] RBC 4.93 3.80 - 5.10 Million/u L [facility] HEMOGLOBIN 15.0 11.7 - 15.5 g/dL [facility] HEMATOCRIT 45.9(H) 35.0 - 45.0 % [facility] MCV 93.1 80.0 - 100.0 fL [facility] MCH 30.4 27.0 - 33.0 pg [facility] MCHC 32.7 32.0 - 36.0 g/dL [facility] RDW 12.2 11.0 - 15.0 % [facility] PLATELETS 276 140 - 400 Thousand/ uL [facility] MPV 10.3 7.5 - 12.5 fL [facility] NEUTROPHIL ABSOLUTE 3,444 1,500 - 7,800 cells/uL [facility] LYMPHOCYTE ABSOLUTE 1,902 850 - 3,900 cells/uL [facility] MONOCYTE ABSOLUTE 546 200 - 950 cells/uL [facility] EOSINOPHIL ABSOLUTE 78 15 - 500 cells/uL [facility] BASOPHILS ABSOLUTE 30 0 - 200 cells/uL [facility] NEUTROPHIL 57.4 % [facility] LYMPHOCYTES 31.7 % [facility] MONOCYTE 9.1 % [facility] EOSINOPHILS 1.3 % [facility] BASOPHILS 0.5 % [facility] Comment: FASTING:YES FASTING: YES Test Performed at: [facility] [address] [address] [place], [place] ??[address] Anna-Rut Mulligan Vo Blood 07/23/2021 1:47 PM CDT 07/23/2021 1:47 PM CDT Chloe Hollingsworth NP HEMATOLOGY HUMA VANESSA [facility] [address] [place] [address] * (ABNORMAL) POC URINALYSIS DIPSTICK NON AUTOMATED (07/23/2021 1:45 PM CDT) COLOR UA Yellow Pale to Dark Yellow [facility] [place] CLARITY UA Clear Clear [facility] [place] [facility] [place] GLUCOSE UA Negative Negative, Normal [facility] [place] BILIRUBIN UA Negative Negative [facility] [place] KETONES UA Negative Negative [facility] [place] [facility] [place] SPECIFIC GRAVITY UA POC 1.010 1.000 - 1.030 [facility] BLOOD UA Trace(A) Negative [facility] [place] PH UA 6.0 5.0 - 8.0 [facility] [place] PROTEIN UA Negative Negative [facility] [place] [facility] [place] UROBILINOGEN UA 0.2 <2.0 mg/dL [facility] [place] NITRITE UA Negative Negative [facility] [place] [facility] [place] LEUKOCYTE ESTERASE UA Negative Negative [facility] INTERNAL [facility] KIT LOT NUMBER POC 9,044 [facility] INTER[facility] KIT EXPIRATION DATE POC 11-22-21 [facility] Urine 07/23/2021 1:45 PM CDT Chloe Hollingsworth GUIDE FOREIGN TOUR POINT OF CARE T ESTING Performing Organization Address [facility] Co de Phone Number [facility] CLIA# [id number] [address] [place] [address] * URINE CULTURE (07/23/2021 1:38 PM CDT) URINE CULTURE [facility] Comment: ??CULTURE, URINE, ROUTINE ?Micro Number: ?[id number] ??Test Status: ? Final ??Specimen Source: ?? Voided ??Specimen Quality: ??Adequate ??Result: ?No Growth Test Performed at: [facility] [address] [address] [place], [place] ??[address] Albin Lewis Urine URINE SPECIMEN OBTAINED BY CLEAN CATCH PROCEDURE / Unknown 07/23/2021 1:38 PM CDT 07/23/2021 11:36 PM CDT Chloe Hollingsworth NP MICROBIOLOGY - GENERAL ORDERABLES Performing Organization Address City/[facility] Co de Phone Number [facility] [address] [place] [address] documented in this encounter Visit Diagnoses Diagnosis LUQ abdominal pain- Primary Abdominal pain, left upper quadrant Flank pain Abdominal pain, unspecified site Hematuria, unspecified type Obesity (BMI 30.0-34.9) Obesity, unspecified Flank pain Abdominal pain, unspecified site documented in this encounter Care Teams Core Paster Relationship Specialty Start Date End Date Annalisa Christopher MD [address] [place] [address] PCP - General 07/07/08 documented as of this encounter
--- OUTSIDE RECORDS SUMMARY | 2024-10-06 18:45 | XMS_ITS | Encounter Summary ---
Author Organization [facility] Address [address] [place] [address] Care Team Providers Care Harness Mender Name Role Phone Annalisa Christopher MD Primary Care Provider [phone] Reason for Visit * Reason Onset Date Comments Sinus Infection 12/07/2020 Encounter Details Date Type Department Care Team (Late st Contact Info) Description 12/07/2020 Telephone [facility] Primary Care - [address] [place] [address] Annalisa Christopher MD [address] [place] [address] [place] [address] Sinus Infection Social History Tobacco Use [...] [facility] - [facility] [address] [facility] [address] [place] [address] Annalisa Christopher MD [address] [facility] [address] [place] [address] documented as of this encounter Visit Diagnoses Not on filedocumented in this encounter Care Teams Harness Mender Relationship Specialty Start Date End Date Annalisa Christopher MD [address] [facility] [address] [place] [address] PCP - General 07/07/08 documented as of this encounter
--- OUTSIDE RECORDS SUMMARY | 2024-10-06 18:45 | XMS_ITS | Clinical Summary ---
Author Organization [facility] Address [address] [place] [address] Care Team Providers Care Advertising Rep Name Role Phone Annalisa Christopher MD Primary Care Provider [phone] Allergies Active Allergy Reactions Criticality Noted Date [...] 3 05/31/2017 Active fluticasone (FLONASE) 50 mcg/spray [place], Suspension Administer 2 Sprays in each nostril [...] 12/27/2007 0 03/05/2015 Iron deficiency anemia secon hcing to blood loss (chronic) 12/27/2007 11/09/2011 PTSD (post-traumatic stress disorder) 10/12/2018 Overview (06/06/2016): Hx of stillbirth at age 25, patient has 2 living children 7 pregnancies Encounters Date Type Department Care Team Description 10/01/2024 External Device Data STL ABSTRACTION Provider, Abstract 09/17/2024 Telephone [facility] [address] [facility] [address] [place] [address] Annalisa Christopher MD Clinical Consult Before Scheduling 08/02/2024 Refill [facility] [address] [facility] [address] [place] [address] Annalisa Christopher MD Mild intermittent asthma without complication 07/29/2024 External Device Data STL ABSTRACTION Provider, Abstract 07/18/2024 9:40 AM CDT Office Visit [facility] [address] [facility] [address] [place] [address] Annalisa Christopher MD Acute non-recurrent maxillary sinusitis (Primary Dx) 07/18/2024 Telephone [facility] [address] [facility] [address] [place] [address] Annalisa Christopher MD Clinical Consult Before Scheduling 07/17/2024 Refill [facility] [address] [facility] [address] [place] [address] Annalisa Christopher MD PTSD (post-traumatic stress disorder) [...] PNEUM OCOCCAL CONJUGATE VACCINE 20-VALENT (PCV20), POLYSACCHARIDE [id number] CONJUGATE, ADJUVANT 0.5 ML (PF) IM 04/29/2022 [...] Healthy Daughter 1 Jeanette Heart Disease Father IN 60's Hypertension Father Stroke Father Diabetes Mother [...] [facility] Primary Care - [facility] [address] [place] [address] Annalisa Christopher MD [address] [place] [address] Health Maintenance Due Date Last [...] 2:42 PM CDT) COLOGUARD RESULT Negative Negative [facility] Comment: NEGATIVE TEST RESULT. A negative [...] (Diane Panchal al, N Engl J Med 2014;370(14):4215-1702) The normal value (reference range) for this assay is negative. COLOGUARD RE-SCREENING RECOMMENDATION: Periodic colorectal cancer screening is an important part of preventive healthcare for asymptomatic individuals at average risk for colorectal cancer. ??Following a negative Cologuard result, the [place] Cancer Society and U.S. Multi-Society Task Force screening guidelines recommend a Cologuard re-screening interval of 3 years. References: [place] Cancer Society Guideline for Colorectal Cancer Screening: https://www.cancer.org/cancer/cedxm-estryu-eefudj/xcvmnztkq-stdyssvev-pgwlxll/ac s-rec ommendations.html.; Compa DK, Santos CR, Cass PORTER, Colorectal Cancer Screening: Recommendations for Physicians and Patients from the U.S. Multi-Society Task Force on Colorectal Cancer Screening , Am J Gastroenterology 2017; 112:5911-1234. TEST DESCRIPTION: Composite algorithmic analysis of stool [...] O et al, N Engl J Med 2014;370(14):5716-6047.) Cologuard may produce a false negative or false positive result (no colorectal cancer or precancerous polyp present at colonoscopy follow up). A negative Cologuard test result does not guarantee the absence of CRC or advanced adenoma (pre-cancer). The current Cologuard screening interval is every 3 years. ([place] Cancer Society and U.S. Multi-Society Task Force). Cologuard performance data in a 10,000 patient pivotal study using colonoscopy as the reference method can be accessed at the following location: www.[employer] [facility].com/results. Additional description of the Cologuard test process, warnings and precautions can be found at [email or web address]. Stool STOOL SPECIMEN / Unknown 04/26/2024 2:42 PM CDT 04/27/2024 11:24 AM CDT Pearl Junior NP BODY FLUIDS AND STO OLS [facility] CLIA # [id number] [address] , [address] [place] [address] * (ABNORMAL) HEMOGLOBIN A1C (04/24/2024 7:16 AM CDT) HEMOGLOBIN A1C 5.7(H) <5.7 % of total Hgb [facility] Comment: For someone without known diabetes, [...] children. ESTIMATED AVERAGE GLUCOSE (MG/DL) 117 mg/dL [facility] ESTIMATED AVERAGE GLUCOSE (MMOL/L) 6.5 mmol/L [facility] Comment: ? This test was performed on the Cadence halley c503 platform. Effective 12/11/23, a change in test platforms from the [employer] Officer to the Cadence halley c503 may have shifted HbA1c results compared to historical results. Based on laboratory validation testing conducted at [facility], the Cadence platform relative to the Baker [...] recommended. FASTING:YES FASTING: YES Test Performed at: [facility] [address] [place], [place] ??[address] Anna-Rut Thi Vo Blood 04/24/2024 7:16 AM CDT 04/24/2024 7:17 AM CDT Pearl Junior SENIOR BIOSTATISTICIAN/GROUP LEADER CHEMISTRY ORDERABLE S [facility] [phone] [facility] [address] [place] [address] * MAMMO SCREENING BILAT (02/22/2022) Anatomical Region Laterality Modality Breast Bilateral Other Abstract Provider MAMMO ORDERABLES * CERV/VAG CYTOPATH, SUREPATH W/RFLX HPV (02/01/2011 10:43 AM CDT) CLINICAL INFORMATION [facility] PREV PAP: 10 22 10 WNL [facility] LAST MENSTRUAL PERIOD 12 13 11 [facility] PAP INTERP Negative for intraepithelial lesion or malignancy. [facility] Auto Driver Pap Comment Based on the cytology result, reflex High Risk HPV DNA testing was not performed. [facility] ADEQUACY: Satisfactory for evaluation. Endocervical/trans formation zone component present. [facility] SOURCE [employer] [facility] CYTOTECHNOLOGI ST: MMW, CT(ASCP) [facility] Comment: ? Lab test performed by: [facility] [address] [address] NELSON FRENCH DO PREV BX: Information not provided [facility] REPORT STATUS FINAL [facility] Endocervical 02/01/2011 10:4 3 AM CDT 02/01/2011 2:10 PM CDT Comment:ENDOCERVICAL Douglas Patricio MD PATHOLOGY/CYTOLOGY O RDERABLES [facility] CLIA# [id number] [address] [place] [address] from Last 3 Months or Most Recently Relevant to Health Maintenance Advance Directives For more information, please contact: [phone] * Full Code (Latest Code Status on File) Date Activated Date Inactivated Comments 08/31/2011 3:42 PM 09/04/2011 8:53 PM * Full Code Date Activated Date Inactivated Comments 08/30/2011 5:46 PM 08/31/2011 3:42 PM * Full Code Date Activated Date Inactivated Comments 09/08/2010 4:07 PM 09/08/2010 8:44 PM * Full Code Date Activated Date Inactivated Comments 09/08/2010 2:41 PM 09/08/2010 4:07 PM Care Teams Advertising Rep Relationship Specialty Start Date End Date Annalisa Christopher MD [address] [facility] [address] [place] [address] PCP - General 07/07/08
--- OUTSIDE RECORDS SUMMARY | 2024-10-06 18:45 | XMS_ITS | Encounter Summary ---
Author Organization [facility] Address [address] [place] [address] Care Team Providers Care Revenue Integrity Analyst Name Role Phone Annalisa Christopher MD Primary Care Provider [phone] Reason for Visit * Reason Onset Date Comments Upper Respiratory Symptoms 05/26/2023 Encounter Details Date Type Department Care Team (Late st Contact Info) Description 05/26/2023 Telephone [facility] Primary Care - [address] [place] [address] Annalisa Christopher MD [address] [place] [address] [place] [address] Upper Respiratory Symptoms Social History Tobacco [...] message with information from prior note. My 10Six Message sent. * Telephone Encounter - Annalisa [...] [facility] - [place] [address] [facility] [address] [place] [address] Annalisa Christopher MD [address] [place] [address] [place] [address] documented as of this encounter Visit Diagnoses Not on filedocumented in this encounter Care Teams Revenue Integrity Analyst Relationship Specialty Start Date End Date Annalisa Christopher MD [address] [facility] [address] [place] [address] PCP - General 07/07/08 documented as of this encounter
--- OUTSIDE RECORDS SUMMARY | 2024-10-06 18:45 | XMS_ITS | Encounter Summary ---
Author Organization [facility] Address [address] [place] [address] Care Team Providers Care Habitat Management Coordinator Name Role Phone Annalisa Christopher MD Primary Care Provider [phone] Reason for Visit * Reason Comments Medication Refill Encounter Details Date Type Department Care Team (Late st Contact Info) Description 05/07/[address] [place] [address] Annalisa Christopher MD [address] [place] [address] [address] [place] [address] PTSD (post-traumatic stress disorder) Social [...] Description 04/25/2025 8:20 AM CDT Office Visit [facility] [address] [place] [address] [address] [place] [address] Annalisa Christopher MD [address] [place] [address] [address] [place] [address] documented as of this encounter Visit Diagnoses Diagnosis PTSD (post-traumatic stress disorder) Posttraumatic stress disorder documented in this encounter Care Teams Habitat Management Coordinator Relationship Specialty Start Date End Date Annalisa Christopher MD [address] [place] [address] PCP - General 07/07/08 documented as of this encounter
--- OUTSIDE RECORDS SUMMARY | 2024-10-06 18:45 | XMS_ITS | Encounter Summary ---
Author Organization [facility] Address [address] [place] [address] Care Team Providers Care Manager Perioperative Name Role Phone Annalisa Christopher MD Primary Care Provider [phone] Reason for Visit * Reason Comments Medication Refill Encounter Details Date Type Department Care Team (Late Contact Info) Description 07/24/2021 Refill [facility] [address] [place] [address] [place] [address] Elkin Alvarez MD NO ADDRESS ON [...] Description 04/25/2025 8:20 AM CDT Office Visit [facility] [address] [place] [address] [address] [place] [address] Annalisa Christopher MD [address] [place] [address] [address] [place] [address] documented as of this encounter Visit Diagnoses Diagnosis Mild intermittent asthma without complication Unspecified asthma documented in this encounter Care Teams Manager Perioperative Relationship Specialty Start Date End Date Annalisa Christopher MD [address] [facility] [address] [place] [address] PCP - General 07/07/08 documented as of this encounter
--- OUTSIDE RECORDS SUMMARY | 2024-10-06 18:45 | XMS_ITS | Encounter Summary ---
Author Organization [facility] Address [address] [place] [address] Care Team Providers Care Tallow Pumper Name Role Phone Annalisa Christopher MD Primary Care Provider [phone] Reason for Visit * Reason Comments Clinical Consult Before Scheduling Encounter Details Date Type Department Care Team (Late st Contact Info) Description 07/18/2024 Telephone [facility] Primary Care - [address] [place] [address] Annalisa Christopher MD [address] [place] [address] [address] [place] [address] Clinical Consult Before Scheduling Social [...] - 07/18/2024 8:20 AM CDT Copied from [facility] #[id number]. Topic: Symptomatic Care >> Jul 18, 2024 [...] Mucinex w/ no relief. Preferred Pharmacy [id number] [place], [place] [facility] [address] [facility] [address] No documented in this encounter Plan of Treatment Upcoming Encounters Date Type Department Care Team (Late st Contact Info) Description 04/25/2025 8:20 AM CDT Office Visit [facility] Primary Care - [address] [place] [address] Annalisa Christopher MD [address] [place] [address] [place] [address] documented as of this encounter Visit Diagnoses Not on filedocumented in this encounter Care Teams Tallow Pumper Relationship Specialty Start Date End Date Annalisa Christopher MD [address] [facility] [address] [place] [address] PCP - General 07/07/08 documented as of this encounter
--- OUTSIDE RECORDS SUMMARY | 2024-10-06 18:45 | XMS_ITS | Encounter Summary ---
Author Organization [facility] Address [address] [place] [address] Care Team Providers Care Gastroenterologist Name Role Phone Annalisa Christopher MD Primary Care Provider [phone] Reason for Visit * Reason Comments Medication Refill Encounter Details Date Type Department Care Team (Late Contact Info) Description 10/31/[address] [place] [address] Annalisa Christopher MD [address] [place] [address] [address] [place] [address] Mild intermittent asthma without complication [...] COVID-19? No / Unsure 10/22/2020 9:45 AM THEATER COMPANY PRODUCER documented as of this encounter Plan of Treatment Upcoming Encounters Date Type Department Care Team (Late st Contact Info) Description 04/25/2025 8:20 AM CDT Office Visit [address] [place] [address] Annalisa Christopher MD [address] [place] [address] documented as of this encounter Visit Diagnoses Diagnosis Mild intermittent asthma without complication Unspecified asthma documented in this encounter Care Teams Gastroenterologist Relationship Specialty Start Date End Date Annalisa Christopher MD [address] [place] [address] PCP - General 07/07/08 documented as of this encounter
--- OUTSIDE RECORDS SUMMARY | 2024-10-06 18:45 | XMS_ITS | Encounter Summary ---
Author Organization [facility] Address [address] [place] [address] Care Team Providers Care Feather Duster Winder Name Role Phone Annalisa Christopher MD Primary Care Provider [phone] Reason for Visit * Reason Comments Med Refill Encounter Details Date Type Department Care Team (Late st Contact Info) Description 06/30/2023 Refill [facility] - [address] [place] [address] Elkin Alvarez MD NO ADDRESS [...] Description 04/25/2025 8:20 AM CDT Office Visit [address] [place] [address] Annalisa Christopher MD [address] [place] [address] Rd [address] [place] [address] documented as of this encounter Visit Diagnoses Diagnosis Mild intermittent asthma without complication Unspecified asthma documented in this encounter Care Teams Feather Duster Winder Relationship Specialty Start Date End Date Annalisa Christopher MD [address] [place] [address] PCP - General 07/07/08 documented as of this encounter
--- OUTSIDE RECORDS SUMMARY | 2024-10-06 18:45 | XMS_ITS | Encounter Summary ---
Author Organization [facility] Address [address] [place] [address] Care Team Providers Care Bead Flipper Name Role Phone Annalisa Christopher MD Primary Care Provider [phone] Encounter Details Date Type Department Care Team [...] Description 04/25/2025 8:20 AM CDT Office Visit [facility] Primary Care - [facility] [address] [place] [address] [place] [address] Annalisa Christopher MD [address] [place] [address] [place] [address] documented as of this encounter Visit Diagnoses Not on filedocumented in this encounter Care Teams Bead Flipper Relationship Specialty Start Date End Date Annalisa Christopher MD [address] [place] [address] [address] [place] [address] PCP - General 07/07/08 documented as of this encounter
--- OUTSIDE RECORDS SUMMARY | 2024-10-06 18:45 | XMS_ITS | Encounter Summary ---
Author Organization [facility] Address [address] [place] [address] Care Team Providers Care Customer Operations Manager Name Role Phone Annalisa Christopher MD Primary Care Provider [phone] Encounter Details Date Type Department Care Team [...] [facility] Primary Care - [facility] [address] [place] [address] [place] [address] Annalisa Christopher MD [address] [place] [address] [place] [address] documented as of this encounter Visit Diagnoses Not on filedocumented in this encounter Care Teams Customer Operations Manager Relationship Specialty Start Date End Date Annalisa Christopher MD [address] [place] [address] [address] [place] [address] PCP - General 07/07/08 documented as of this encounter
--- OUTSIDE RECORDS SUMMARY | 2024-10-06 18:45 | XMS_ITS | Encounter Summary ---
Author Organization [facility] Address [address] [place] [address] Care Team Providers Care Undercollar Baster Name Role Phone Annalisa Christopher MD Primary Care Provider [phone] Reason for Visit * Reason Comments Med Refill Encounter Details Date Type Department Care Team (Late st Contact Info) Description 12/29/[address] [place] [address] Annalisa Christopher MD [address] [place] [address] [address] [place] [address] Mild intermittent asthma without complication [...] * Telephone Encounter - Emely Cuadra - 12/29/2023 8:33 AM CDT [place] 04/19/23 documented in this encounter Plan of Treatment Upcoming Encounters Date Type Department Care Team (Late st Contact Info) Description 04/25/2025 8:20 AM CDT Office Visit [facility] [address] [facility] [address] [place] [address] Annalisa Christopher MD [address] [place] [address] documented as of this encounter Visit Diagnoses Diagnosis Mild intermittent asthma without complication Unspecified asthma documented in this encounter Care Teams Undercollar Baster Relationship Specialty Start Date End Date Annalisa Christopher MD [address] [place] [address] PCP - General 07/07/08 documented as of this encounter
--- OUTSIDE RECORDS SUMMARY | 2024-10-06 18:45 | XMS_ITS | Encounter Summary ---
Author Organization [facility] Address [address] [place] [address] Care Team Providers Care Behavioral Health Assistant Name Role Phone Annalisa Christopher MD Primary Care Provider [phone] Encounter Details Date Type Department Care Team [...] CDT Office Visit [facility] Primary Care - [facility] [address] [place] [address] [place] [address] Annalisa Christopher MD [address] [place] [address] [place] [address] documented as of this encounter Visit Diagnoses Not on filedocumented in this encounter Care Teams Behavioral Health Assistant Relationship Specialty Start Date End Date Annalisa Christopher MD [address] [place] [address] [address] [place] [address] PCP - General 07/07/08 documented as of this encounter
--- OUTSIDE RECORDS SUMMARY | 2024-10-06 18:45 | XMS_ITS | Encounter Summary ---
Author Organization [facility] Address [address] [place] [address] Care Team Providers Care A P Manager Name Role Phone Annalisa Christopher MD Primary Care Provider [phone] Encounter Details Date Type Department Care Team (Latest Contact Info) Description 10/22/2020 11:15 AM ROCK DUST SPRAYER - 10/22/2020 11:59 PM ROCK DUST SPRAYER Hospital Encounter [facility] [place] [address] [place] [address] Annalisa Christopher MD [address] [place] [address] Discharge Disposition: Home or Self [...] COVID-19? No / Unsure 10/22/2020 9:45 AM ROCK DUST SPRAYER documented as of this encounter Medications at Time of Discharge Medication Sig Dispensed Refills Start Date End Date Peak Flow Meter DeviceIndications:Mild intermittent asthma without complication Dx asthma. 1 Device 03/29/2019 fluticasone (FLONASE) 50 mcg/spray [place], Suspension Administer 2 Sprays in each nostril [...] 04/25/2025 8:20 AM CDT Office Visit [facility] - [address] [place] [address] Annalisa Christopher MD [facility] [address] [place] [address] documented as of this encounter Procedures Procedure Name Priority Date/Time Associated Diagnosis Comments URINALYSIS W/REFLEX MICROSCOPIC Routine 10/22/2020 3:33 PM ROCK DUST SPRAYER Wellness examination TSH REFLEXIVE Routine 10/22/2020 11:17 AM ROCK DUST SPRAYER Wellness examination CBC WITH DIFFERENTIAL Routine 10/22/2020 11:17 AM ROCK DUST SPRAYER Wellness examination VITAMIN D 25 HYDROXY Routine 10/22/2020 11:17 AM ROCK DUST SPRAYER Vitamin D deficiency HEMOGLOBIN A1C Routine 10/22/2020 11:17 AM ROCK DUST SPRAYER Wellness examination LIPID PANEL Routine 10/22/2020 11:17 AM ROCK DUST SPRAYER Wellness examination COMPREHENSIVE METABOLIC PANEL Routine 10/22/2020 11:17 AM ROCK DUST SPRAYER Wellness examination documented in this encounter Results * URINALYSIS WITH REFLEX MICROSCOPIC (10/22/2020 3:33 PM ROCK DUST SPRAYER) COLOR UA Yellow Pale to Dark Yellow 10/22/2020 10:10 PM ROCK DUST SPRAYER [facility] CLARITY UA Clear Clear 10/22/2020 10:10 PM ROCK DUST SPRAYER [employer] [facility] SPECIFIC GRAVITY UA 1.015 1.003 - 1.035 10/22/2020 10:10 PM ROCK DUST SPRAYER [employer] PH UA 7.0 5.0 - 8.0 10/22/2020 10:10 PM ROCK DUST SPRAYER [employer] LEUKOCYTE ESTERASE UA Negative Negative 10/22/2020 10:10 PM ROCK DUST SPRAYER [employer] [facility] NITRITE UA Negative Negative 10/22/2020 10:10 PM ROCK DUST SPRAYER [facility] PROTEIN UA Negative Negative 10/22/2020 10:10 PM ROCK DUST SPRAYER [employer] [facility] GLUCOSE UA Negative Negative 10/22/2020 10:10 PM ROCK DUST SPRAYER [facility] KETONES UA Negative Negative 10/22/2020 10:10 PM ROCK DUST SPRAYER [facility] UROBILINOGEN UA Normal <2.0 mg/dL 10:10 PM ROCK DUST SPRAYER [facility] BILIRUBIN UA Negative Negative 10/22/2020 10:10 PM ROCK DUST SPRAYER [facility] BLOOD UA Negative Negative 10/22/2020 10:10 PM ROCK DUST SPRAYER [facility] Urine URINE SPECIMEN OBTAINED BY CLEAN CATCH PROCEDURE / Unknown Collection / Unknown 10/22/2020 3:33 PM ROCK DUST SPRAYER 10/22/2020 3:33 PM ROCK DUST SPRAYER Annalisa Christopher MD URINE ORDERABLES Performing Organization Address City/[facility]/ZIP Co de Phone Number [facility]# [id number] [address] [place] [address] * TSH REFLEXIVE (10/22/2020 11:17 AM ROCK DUST SPRAYER) TSH 0.37 0.27 - 4.20 uIU/mL 10/22/2020 4:30 PM ROCK DUST SPRAYER [facility] Blood Venipuncture / Unknown 10/22/2020 11:17 AM ROCK DUST SPRAYER 10/22/2020 11:17 AM ROCK DUST SPRAYER Annalisa Christopher MD CHEMISTRY ORDERABLES Performing Organization Address City/[facility]/ZIP Co de Phone Number [facility] [employer] [facility]# [id number] [address] [place] [address] * HEMOGLOBIN A1C (10/22/2020 11:17 AM ROCK DUST SPRAYER) HEMOGLOBIN A1C 5.2 <5.7 % 10/22/2020 5:25 PM ROCK DUST SPRAYER [facility] EST. AVG GLUCOSE, A1C 103 mg/dL 10/22/2020 5:25 PM ROCK DUST SPRAYER [facility] Blood Venipuncture / Unknown 10/22/2020 11:17 AM ROCK DUST SPRAYER 10/22/2020 11:17 AM ROCK DUST SPRAYER Narrative [facility] - 10/22/2020 5:25 PM ROCK DUST SPRAYER HGB A1C INTERPRETATION NORMAL: ? <5.7% PRE-DIABETES: 5.7 - 6.4% DIABETES: ? 6.5% OR GREATER Annalisa Christopher MD CHEMISTRY ORDERABLES Performing Organization Address [facility] Co de Phone Number [facility]# [id number] [address] [place] [address] * VITAMIN D 25 HYDROXY (10/22/2020 11:17 AM ROCK DUST SPRAYER) Pathologist [facility] VITAMIN D TOTAL (25OH) 83 30 - 100 ng/mL 10/22/2020 4:18 PM [facility] [employer] [facility] Blood Venipuncture / Unknown 10/22/2020 11:17 AM ROCK DUST SPRAYER 10/22/2020 11:17 AM ROCK DUST SPRAYER Narrative [facility] [employer] [facility] - 10/22/2020 4:18 PM ROCK DUST SPRAYER Interpretive Data Chart: Deficient: ? 0 - 20 ng/mL Insufficient: ?21 - 29 ng/mL Sufficient: ?30 - 100 ng/mL Increased Risk of Hypercalciuria: ??>100 ng/ml Toxic: ? >150 ng/ml Annalisa Christopher MD CHEMISTRY ORDERABLES Performing Organization Address [facility] Co de Phone Number [facility] [employer] [facility]# [id number] [address] [place] [address] * COMPREHENSIVE METABOLIC PANEL (10/22/2020 11:17 AM ROCK DUST SPRAYER) [facility] SODIUM 139 136 - 145 mmol/L 10/22/2020 4:17 PM [facility] [employer] [facility] POTASSIUM 4.2 3.5 - 5.0 mmol/L 10/22/2020 4:17 PM [facility] [employer] [facility] CHLORIDE 104 98 - 107 mmol/L 10/22/2020 4:17 PM [employer] [facility] CO2 26 22 - 29 mmol/L 10/22/2020 4:17 PM [employer] [facility] CALCIUM 9.5 8.6 - 10.2 mg/dL 10/22/2020 4:17 PM ROCK DUST SPRAYER [employer] BUN 10 6 - 20 mg/dL 10/22/2020 4:17 PM ROCK DUST SPRAYER [facility] CREATININE 0.87 0.51 - 0.95 mg/dL 10/22/2020 4:17 PM [employer] [facility] GLUCOSE 98 74 - 99 mg/dL 10/22/2020 4:17 PM [employer] [facility] TOTAL PROTEIN 7.3 6.7 - 8.6 g/dL 10/22/2020 4:17 PM [employer] [facility] ALBUMIN 4.6 3.5 - 5.2 g/dL 10/22/2020 4:17 PM [employer] [facility] BILIRUBIN TOTAL 0.3 0.3 - 1.2 mg/dL 10/22/2020 4:17 PM [employer] [facility] ALKALINE PHOSPHATASE 88 35 - 104 U/L 10/22/2020 4:17 PM [employer] [facility] AST 17 <33 U/L 10/22/2020 4:17 PM [employer] [facility] ALT 23 <34 U/L 10/22/2020 4:17 PM [employer] [facility] GFR >60 >=60 mL/min/1.7 3 sq meter 10/22/2020 4:17 PM [employer] [facility] Comment: eGFR [...] mL/min/1.7 3 sq meter 10/22/2020 4:17 PM [facility] ANION GAP 9 8 - 16 mmol/L 10/22/2020 4:17 PM [facility] [employer] [facility] Blood Venipuncture / Unknown 10/22/2020 11:17 AM ROCK DUST SPRAYER 10/22/2020 11:17 AM Pending sale to [facility] LABORATORY [facility] - 10/22/2020 4:17 PM [facility] Samples containing indocyanine green cause interferences on Total and/or Direct Bilirubin and must not be measured. Annalisa Christopher MD CHEMISTRY ORDERABLES [facility] [employer] [facility]# [id number] [address] [place] [address] * (ABNORMAL) CBC WITH DIFFERENTIAL (10/22/2020 11:17 AM ROCK DUST SPRAYER) WBC 5.4 4.0 - 9.8 K/uL 10/22/2020 4:05 PM [facility]ORY [facility] RBC 5.14(H) 3.90 - 4.90 M/uL 10/22/2020 4:05 PM [facility] [employer] [facility] HEMOGLOBIN 15.0(H) 11.8 - 14.8 g/dL 10/22/2020 4:05 PM [facility] [employer] [facility] HEMATOCRIT 47.6(H) 35.5 - 44.0 % 10/22/2020 4:05 PM [facility] [employer] [facility] MCV 92.6 82.0 - 99.0 fL 10/22/2020 4:05 PM [facility] [employer] [facility] MCH 29.2 27.2 - 32.6 pg 10/22/2020 4:05 PM [facility] [employer] [facility] MCHC 31.5 31.5 - 35.5 g/dL 10/22/2020 4:05 PM [facility] [employer] [facility] RDW 12.3 11.5 - 14.5 % 10/22/2020 4:05 PM [facility] RDW-STDEV 42.1 37.1 - 48.7 fL 10/22/2020 4:05 PM [facility] [employer] [facility] - [facility] PLATELETS 295 140 - 350 K/uL 10/22/2020 4:05 PM [facility] [employer] [facility] - [facility] MPV 10.5 9.3 - 12.4 fL 10/22/2020 4:05 PM [facility] [facility] - [facility] NEUTROPHILS 60 % 10/22/2020 4:05 PM [facility] LYMPHOCYTES 31 % 10/22/2020 4:05 PM [facility] MONOCYTES 7 % 10/22/2020 4:05 PM ROCK DUST SPRAYER [employer] [facility] EOSINOPHILS 1 % 10/22/2020 4:05 PM [facility] BASOPHILS 1 % 10/22/2020 4:05 PM [facility] [employer] [facility] - [facility] IMMATURE GRANULOCYTES 0 % 10/22/2020 4:05 PM [facility] [facility] NEUTROPHIL ABSOLUTE 3.26 1.90 - 7.00 K/uL 10/22/2020 4:05 PM [facility] [facility] - [facility] LYMPHOCYTE ABSOLUTE 1.67 0.70 - 4.50 K/uL 10/22/2020 4:05 PM [facility] [employer] [facility] MONOCYTE ABSOLUTE 0.40 0.10 - 1.30 K/uL 10/22/2020 4:05 PM [facility] [facility] - [facility] EOSINOPHIL ABSOLUTE 0.04 0.00 - 0.70 K/uL 10/22/2020 4:05 PM [facility] [facility] BASOPHILS ABSOLUTE 0.03 0.00 - 0.20 K/uL 10/22/2020 4:05 PM [facility] [employer] [facility] - . [facility] IMMATURE GRANULOCYTES ABSOLUTE 0.01 0.00 - 0.03 K/uL 10/22/2020 4:05 PM [facility] [employer] [facility] Blood Venipuncture / Unknown 10/22/2020 11:17 AM ROCK DUST SPRAYER 10/22/2020 11:17 AM ROCK DUST SPRAYER Annalisa Christopher MD HEMATOLOGY ORDERABLE S [employer] [facility] - [facility] CLIA# [id number] [address] [place] [place] [address] * (ABNORMAL) LIPID PANEL (10/22/2020 11:17 AM ROCK DUST SPRAYER) CHOLESTEROL 192 <200 mg/dL 10/22/2020 4:17 PM [facility] [employer] [facility] TRIGLYCERIDE 55 <150 mg/dL 10/22/2020 4:17 PM [facility] [employer] [facility] HDL 49 40 - 59 mg/dL 10/22/2020 4:17 PM [facility] [employer] [facility] LDL CALCULATED 132(H) <100 mg/dL 10/22/2020 4:17 PM [facility] [employer] [facility] - . [facility] NON-HDL CHOLESTEROL 143(H) <130 mg/dL 10/22/2020 4:17 PM [facility] [employer] [facility] Blood Venipuncture / Unknown 10/22/2020 11:17 AM ROCK DUST SPRAYER 10/22/2020 11:17 AM ROCK DUST SPRAYER Narrative [employer] [facility] - . [facility] - 10/22/2020 4:17 PM ROCK DUST SPRAYER TOTAL CHOLESTEROL ??mg/dL ??Desirable <200 ??Borderline high [...] (NCEP/AMA) . Annalisa Christopher MD CHEMISTRY ORDERABLES [facility] LAB[facility]ORY SERVICES [facility]# [id number] [address] [place] [address] documented in this encounter Visit Diagnoses Diagnosis Wellness examination Vitamin D deficiency Unspecified vitamin D deficiency documented in this encounter Care Teams A P Manager Relationship Specialty Start Date End Date Annalisa Christopher MD [address] [place] [address] PCP - General 07/07/08 documented as of this encounter
--- OUTSIDE RECORDS SUMMARY | 2024-10-06 18:45 | XMS_ITS | Encounter Summary ---
Author Organization [facility] Address [address] [place] [address] Care Team Providers Care Training Designer Name Role Phone Annalisa Christopher MD Primary Care Provider [phone] Reason for Referral * Eval and Treat (Routine) - Closed Specialty Diagnoses / Procedures Referred By Contac t Referred To Contact Gastroenterology Diagnoses Colon cancer screening Procedures OV Annalisa Christopher MD [address] [place] [address] [address] [place] [address] Heide Shannon MD [address] [address] Referral ID Status Reason Start Date Expiration Date V isits Requested Visits Authorized [id number] Closed CRS to Schedule 10/22/2020 10/22/2021 1 1 S MACHINE OPERATOR Reason for Visit * Reason Comments Physical fasting Encounter Details Date Type Department Care Team (Late st Contact Info) Description 10/22/2020 10:00 AM PRESS MACHINE OPERATOR Office Visit [facility] [address] [place] [address] Annalisa Christopher MD [address] [place] [address] [address] [place] [address] Wellness examination (Primary Dx); Mixed [...] COVID-19? No / Unsure 10/22/2020 9:45 AM PRESS MACHINE OPERATOR documented as of this encounter Last Filed Vital Signs Vital Sign Reading Time Taken Comments Blood Pressure 122/68 10/22/2020 9:59 AM PRESS MACHINE OPERATOR Pulse 79 10/22/2020 9:59 AM PRESS MACHINE OPERATOR Temperature - - Respiratory Rate - - Oxygen Saturation 98% 10/22/2020 9:59 AM PRESS MACHINE OPERATOR Inhaled Oxygen Concentration - - Weight 87.1 kg (192 lb) 10/22/2020 9:59 AM PRESS MACHINE OPERATOR Height 170.2 cm (5' 7 ) 10/22/2020 9:59 AM PRESS MACHINE OPERATOR Body Mass Index 30.07 10/22/2020 9:59 AM PRESS MACHINE OPERATOR documented in this encounter Progress Notes * [...] Device 0 ??? fluticasone (FLONASE) 50 mcg/spray [place], Suspension Administer 2 Sprays in each nostril [...] G43.909 346.90 promethazine (PHENERGAN) 25 mg tablet S MACHINE OPERATOR documented in this encounter Plan of Treatment Upcoming Encounters Date Type Department Care Team (Late st Contact Info) Description 04/25/2025 8:20 AM CDT Office Visit [facility] Primary [facility] - [facility] [address] [place] [address] Annalisa Christopher MD [address] [place] [address] Scheduled Referrals Name Type Priority [...] type documented in this encounter Care Teams Training Designer Relationship Specialty Start Date End Date Annalisa Christopher MD [address] [place] [address] PCP - General 07/07/08 documented as of this encounter
--- OUTSIDE RECORDS SUMMARY | 2024-10-06 18:45 | XMS_ITS | Encounter Summary ---
Author Organization [facility] Address [address] [place] [address] Care Team Providers Care Supervising Librarian Name Role Phone Annalisa Christopher MD Primary Care Provider [phone] Encounter Details Date Type Department Care Team [...] [facility] Primary Care - [facility] [address] [place] [address] [place] [phone] Annalisa Christopher MD [address] [place] [address] [place] [phone] documented as of this encounter Visit Diagnoses Not on filedocumented in this encounter Care Teams Supervising Librarian Relationship Specialty Start Date End Date Annalisa Christopher MD [address] [place] [address] [address] [place] [address] PCP - General 07/07/08 documented as of this encounter
--- OUTSIDE RECORDS SUMMARY | 2024-10-06 18:45 | XMS_ITS | Encounter Summary ---
Author Organization [facility] Address [address] [place] [address] Care Team Providers Care Equipment Cleaner Name Role Phone Annalisa Christopher MD Primary Care Provider [phone] Encounter Details Date Type Department Care Team [...] [facility] Primary Care - [facility] [address] [place] [address] [place] [phone] Annalisa Christopher MD [address] [place] [address] [place] [phone] documented as of this encounter Visit Diagnoses Not on filedocumented in this encounter Care Teams Equipment Cleaner Relationship Specialty Start Date End Date Annalisa Christopher MD [address] [place] [address] [address] [place] [address] PCP - General 07/07/08 documented as of this encounter
--- OUTSIDE RECORDS SUMMARY | 2024-10-06 18:45 | XMS_ITS | Encounter Summary ---
Author Organization [facility] Address [address] [place] [address] Care Team Providers Care Hr Business Partner Consultant Name Role Phone Annalisa Christopher MD Primary Care Provider [phone] Reason for Visit * Reason Comments Medication Refill Encounter Details Date Type Department Care Team (Late st Contact Info) Description 05/05/2020 Telephone [facility] Primary Care - [address] [place] [phone] Annalisa Christopher MD [address] [place] [address] [place] [phone] Medication Refill Social History Tobacco Use [...] Visit [facility] Primary Care - [address] [place] [phone] Annalisa Christopher MD [address] [place] [address] [address] [place] [address] documented as of this encounter Results * URINALYSIS WITH REFLEX MICROSCOPIC (10/22/2020 3:33 PM DRY MILL OPERATOR) COLOR UA Yellow Pale to Dark Yellow 10/22/2020 10:[address] [facility] CLARITY UA Clear Clear 10/22/2020 10:[address] [facility] SPECIFIC GRAVITY UA 1.015 1.003 - 1.035 10/22/2020 10:10 PM DRY MILL OPERATOR [employer] LABORATORY [facility] PH UA 7.0 5.0 - 8.0 10/22/2020 10:10 PM DRY MILL OPERATOR [employer] LABORATORY [facility] LEUKOCYTE ESTERASE UA Negative Negative 10/22/2020 10:10 PM [facility] [employer] LABORATORY [facility] NITRITE UA Negative Negative 10/22/2020 10:10 PM DRY MILL OPERATOR [employer] LABORATORY [facility] PROTEIN UA Negative Negative 10/22/2020 10:10 PM DRY MILL OPERATOR [employer] LABORATORY [facility] GLUCOSE UA Negative Negative 10/22/2020 10:10 PM DRY MILL OPERATOR [employer] LABORATORY SERVICES - [facility] KETONES UA Negative Negative 10/22/2020 10:10 PM DRY MILL OPERATOR [employer] LABORAT[facility] UROBILINOGEN UA Normal <2.0 mg/dL 10:10 PM DRY MILL OPERATOR [employer] LABORATORY [facility] BILIRUBIN UA Negative Negative 10/22/2020 10:10 PM DRY MILL OPERATOR [employer] LABORATORY [facility] BLOOD UA Negative Negative 10/22/2020 10:10 PM DRY MILL OPERATOR [employer] LABORATORY [facility] Urine URINE SPECIMEN OBTAINED BY CLEAN CATCH PROCEDURE / Unknown Collection / Unknown 10/22/2020 3:33 PM DRY MILL OPERATOR 10/22/2020 3:33 PM DRY MILL OPERATOR Annalisa Christopher MD URINE ORDERABLES [facility] [employer] [facility] CLIA# [id number] [address] [place] [address] * TSH REFLEXIVE (10/22/2020 11:17 AM DRY MILL OPERATOR) TSH 0.37 0.27 - 4.20 uIU/mL 10/22/2020 4:[address] [facility] [employer] [facility] Blood Venipuncture / Unknown 10/22/2020 11:17 AM DRY MILL OPERATOR 10/22/2020 11:17 AM DRY MILL OPERATOR Annalisa Christopher MD CHEMISTRY ORDERABLES [facility]# [id number] [address] [place] [address] * HEMOGLOBIN A1C (10/22/2020 11:17 AM DRY MILL OPERATOR) [facility] HEMOGLOBIN A1C 5.2 <5.7 % 10/22/2020 5:[address] [facility] [employer] [facility] EST. AVG GLUCOSE, A1C 103 mg/dL 10/22/2020 5:25 PM [facility] [employer] [facility] Blood Venipuncture / Unknown 10/22/2020 11:17 AM DRY MILL OPERATOR 10/22/2020 11:17 AM DRY MILL OPERATOR [facility] [employer] [facility] - 10/22/2020 5:25 PM DRY MILL OPERATOR HGB A1C INTERPRETATION NORMAL: ? <5.7% PRE-DIABETES: 5.7 - 6.4% DIABETES: ? 6.5% OR GREATER Annalisa Christopher MD [facility]Y [facility]LES [facility]# [id number] [address] [place] [address] * VITAMIN D 25 HYDROXY (10/22/2020 11:17 AM DRY MILL OPERATOR) [facility] VITAMIN D TOTAL (25OH) 83 30 - 100 ng/mL 10/22/2020 4:18 PM [facility] [employer] [facility] Blood Venipuncture / Unknown 10/22/2020 11:17 AM DRY MILL OPERATOR 10/22/2020 11:17 AM DRY MILL OPERATOR [facility] [employer] [facility] - 10/22/2020 4:18 PM DRY MILL OPERATOR Interpretive Data Chart: Deficient: ? 0 - 20 ng/mL Insufficient: ?21 - 29 ng/mL Sufficient: ?30 - 100 ng/mL Increased Risk of Hypercalciuria: ??>100 ng/ml Toxic: ? >150 ng/ml Annalisa Christopher MD CHEMISTRY ORDERABLES [facility] SERVICES - [facility] CLIA# [id number] [address] [facility] [place] [place] [address] * COMPREHENSIVE METABOLIC PANEL (10/22/2020 11:17 AM DRY MILL OPERATOR) Pathologist [facility] SODIUM 139 136 - 145 mmol/L 10/22/2020 4:17 PM [facility] [employer] LABORATORY SERVICES - . [facility] POTASSIUM 4.2 3.5 - 5.0 mmol/L 10/22/2020 4:17 PM [facility] [employer] LABORATORY SERVICES - [facility] CHLORIDE 104 98 - 107 mmol/L 10/22/2020 4:17 PM DRY MILL OPERATOR [employer] [facility]ATORY SERVICES - [facility] CO2 26 22 - 29 mmol/L 10/22/2020 4:17 PM [facility] [employer] [facility]ATORY SERVICES - [facility] CALCIUM 9.5 8.6 - 10.2 mg/dL 10/22/2020 4:17 PM [facility] [employer] LABORATORY SERVICES - [facility] BUN 10 6 - 20 mg/dL 10/22/2020 4:17 PM [facility] [employer] LAB[facility]ATORY SERVICES - [facility] CREATININE 0.87 0.51 - 0.95 mg/dL 10/22/2020 4:17 PM DRY MILL OPERATOR [employer] [facility]ATORY SERVICES - [facility] GLUCOSE 98 74 - 99 mg/dL 10/22/2020 4:17 PM DRY MILL OPERATOR [employer] [facility] - [facility] TOTAL PROTEIN 7.3 6.7 - 8.6 g/dL 10/22/2020 4:17 PM DRY MILL OPERATOR [employer] [facility]ATORY [facility] - [facility] ALBUMIN 4.6 3.5 - 5.2 g/dL 10/22/2020 4:17 PM DRY MILL OPERATOR [employer] [facility]ATORY SERVICES - [facility] BILIRUBIN TOTAL 0.3 0.3 - 1.2 mg/dL 10/22/2020 4:17 PM DRY MILL OPERATOR [employer] LABORATORY SERVICES - [facility] ALKALINE PHOSPHATASE 88 35 - 104 U/L 10/22/2020 4:17 PM [facility] AST 17 <33 U/L 10/22/2020 4:17 PM [facility] ALT 23 <34 U/L 10/22/2020 4:17 PM [facility] GFR >60 >=60 mL/min/1.7 3 sq meter 10/22/2020 4:17 PM [facility] LABORATORY [facility] Comment: eGFR has not been validated for [...] mL/min/1.7 3 sq meter 10/22/2020 4:17 PM [facility] [employer] [facility] ANION GAP 9 8 - 16 mmol/L 10/22/2020 4:17 PM [facility] [employer] [facility] Blood Venipuncture / Unknown 10/22/2020 11:17 AM DRY MILL OPERATOR 10/22/2020 11:17 AM [facility] Narrative [facility] - 10/22/2020 4:17 PM DRY MILL OPERATOR Samples containing indocyanine green cause interferences on Total and/or Direct Bilirubin and must not be measured. Annalisa Christopher MD CHEMISTRY ORDERABLES [facility] [employer] [facility] [id number] [address] [facility] [place] [address] * (ABNORMAL) CBC WITH DIFFERENTIAL (10/22/2020 11:17 AM DRY MILL OPERATOR) WBC 5.4 4.0 - 9.8 K/uL 10/22/2020 4:05 PM [facility] LABORATORY SERVICES - [facility] RBC 5.14(H) 3.90 - 4.90 M/uL 10/22/2020 4:05 PM DRY MILL OPERATOR [employer] LABORATORY SERVICES - . [facility] HEMOGLOBIN 15.0(H) 11.8 - 14.8 g/dL 10/22/2020 4:05 PM DRY MILL OPERATOR [employer] [facility]ORATORY SERVICES - [facility] HEMATOCRIT 47.6(H) 35.5 - 44.0 % 10/22/2020 4:05 PM DRY MILL OPERATOR [employer] LABORATORY SERVICES - [facility] MCV 92.6 82.0 - 99.0 fL 10/22/2020 4:05 PM DRY MILL OPERATOR [employer] LABORATORY SERVICES - [facility] MCH 29.2 27.2 - 32.6 pg 10/22/2020 4:05 PM DRY MILL OPERATOR [employer] LABORATORY SERVICES - [facility] MCHC 31.5 31.5 - 35.5 g/dL 10/22/2020 4:05 PM [employer] LABORATORY SERVICES - [facility] RDW 12.3 11.5 - 14.5 % 10/22/2020 4:05 PM [employer] LABORATORY SERVICES - [facility] RDW-STDEV 42.1 37.1 - 48.7 fL 10/22/2020 4:05 PM DRY MILL OPERATOR [employer] LABORATORY SERVICES - [facility] PLATELETS 295 140 - 350 K/uL 10/22/2020 4:05 PM [employer] LABORATORY SERVICES - [facility] MPV 10.5 9.3 - 12.4 fL 10/22/2020 4:05 PM [employer] LABORATORY SERVICES - . [facility] NEUTROPHILS 60 % 10/22/2020 4:05 PM DRY MILL OPERATOR [employer] LABORATORY SERVICES - . [facility] LYMPHOCYTES 31 % 10/22/2020 4:05 PM DRY MILL OPERATOR [employer] LABORATORY SERVICES - . [facility] MONOCYTES 7 % 10/22/2020 4:05 PM DRY MILL OPERATOR [employer] [facility] EOSINOPHILS 1 % 10/22/2020 4:05 PM DRY MILL OPERATOR [employer] LABORATORY SERVICES - . [facility] BASOPHILS 1 % 10/22/2020 4:05 PM DRY MILL OPERATOR [employer] LABORATORY SERVICES - . [facility] IMMATURE GRANULOCYTES 0 % 10/22/2020 4:05 PM DRY MILL OPERATOR [employer] LABORATORY SERVICES - . [facility] NEUTROPHIL ABSOLUTE 3.26 1.90 - 7.00 K/uL 10/22/2020 4:[address] [facility] LABORATORY SERVICES - [facility] LYMPHOCYTE ABSOLUTE 1.67 0.70 - 4.50 K/uL 10/22/2020 4:05 PM [facility] LABORATORY [facility] MONOCYTE ABSOLUTE 0.40 0.10 - 1.30 K/uL 10/22/2020 4:05 PM [facility] LABORATORY [facility] EOSINOPHIL ABSOLUTE 0.04 0.00 - 0.70 K/uL 10/22/2020 4:05 PM [facility] LABORATORY [facility] BASOPHILS ABSOLUTE 0.03 0.00 - 0.20 K/uL 10/22/2020 4:05 PM [facility] [employer] LABORATORY [facility] - . [facility] IMMATURE GRANULOCYTES ABSOLUTE 0.01 0.00 - 0.03 K/uL 10/22/2020 4:05 PM [facility] [employer] [facility] Blood Venipuncture / Unknown 10/22/2020 11:17 AM DRY MILL OPERATOR 10/22/2020 11:17 AM DRY MILL OPERATOR Annalisa Christopher MD HEMATOLOGY ORDERABLE [facility] [employer] [facility]# [id number] [address] [place], [place] [id number] * (ABNORMAL) LIPID PANEL (10/22/2020 11:17 AM DRY MILL OPERATOR) CHOLESTEROL 192 <200 mg/dL 10/22/2020 4:17 PM [facility] [employer] [facility] TRIGLYCERIDE 55 <150 mg/dL 10/22/2020 4:17 PM [facility] [employer] [facility] HDL 49 40 - 59 mg/dL 10/22/2020 4:17 PM [facility] [employer] [facility] LDL CALCULATED 132(H) <100 mg/dL 10/22/2020 4:17 PM [facility] [employer] [facility] NON-HDL CHOLESTEROL 143(H) <130 mg/dL 10/22/2020 4:17 PM [facility] [employer] [facility] Blood Venipuncture / Unknown 10/22/2020 11:17 AM DRY MILL OPERATOR 10/22/2020 11:17 AM DRY MILL OPERATOR Narrative [facility] - 10/22/2020 4:17 PM DRY MILL OPERATOR TOTAL CHOLESTEROL ??mg/dL ??Desirable <200 ??Borderline high [...] (NCEP/AMA) . Annalisa Christopher MD CHEMISTRY ORDERABLES [facility] CLIA# [id number] [address] [place] [address] documented in this encounter Visit Diagnoses Diagnosis Wellness examination- Primary Mild intermittent asthma without complication Unspecified asthma Vitamin D deficiency Unspecified vitamin D deficiency documented in this encounter Additional Health Concerns Assessment Noted Time PHQ-9 Depression Total Score: 1 06/06/20 16 9:00 AM CDT documented as of this encounter Care Teams Hr Business Partner Consultant Relationship Specialty Start Date End Date Annalisa Christopher MD [address] [facility] [address] [place] [address] PCP - General 07/07/08 documented as of this encounter
--- OUTSIDE RECORDS SUMMARY | 2024-10-06 18:45 | XMS_ITS | Encounter Summary ---
Author Organization [facility] Address [address] [facility] Attn: Epic [place] [address] Care Team Providers Care Molecular Genetic Pathologist Name Role Phone Annalisa Christopher MD Primary Care Provider [phone] Encounter Details Date Type Department Care Team [...] 8:20 AM CDT Office Visit [facility] Care - [facility] [address] [place] [address] [address] [place] [address] Annalisa Christopher MD [address] [place] [address] Rd [address] [place] [address] documented as of this encounter Visit Diagnoses Not on filedocumented in this encounter Care Teams Molecular Genetic Pathologist Relationship Specialty Start Date End Date Annalisa Christopher MD [address] [facility] [address] [place] [address] PCP - General 07/07/08 documented as of this encounter
--- OUTSIDE RECORDS SUMMARY | 2024-10-06 18:45 | XMS_ITS | Encounter Summary ---
Author Organization [facility] Address [address] [place] [address] Care Team Providers Care Traveling Missionary Name Role Phone Annalisa Christopher MD Primary Care Provider [phone] Reason for Visit * Reason Onset Date Comments change to VV 09/23/2020 poss exposure 09/23/2020 Encounter Details Date Type Department Care Team (Late st Contact Info) Description 09/23/2020 Telephone [facility] Primary Care - [address] [place] [address] Annalisa Christopher MD [address] [place] [address] [place] [address] change to VV; poss exposure Social [...] will sched pe at a later date OLE SPLICER * Telephone Encounter - Annalisa Christopher MD - 09/23/2020 10:39 AM OUTSOLE SPLICER Does she need any medications refills? I can do video visit for that However for full physical I would rather have in person visit later OLE SPLICER * Telephone Encounter - Shelly Vidal - 09/23/2020 9:21 AM CST Possible exposure on Monday No sxs Pt has PE appt today and was wanting to know if she can do a VV? Or reschedule? OLE SPLICER documented in this encounter Plan of Treatment Upcoming Encounters Date Type Department Care Team (Late st Contact Info) Description 04/25/2025 8:20 AM CDT Office Visit [facility] Primary Care - [facility] [address] [place] [address] Annalisa Christopher MD [address] [place] [address] documented as of this encounter Visit Diagnoses Not on filedocumented in this encounter Additional Health Concerns Assessment Noted Time PHQ-9 Depression Total Score: 1 06/06/20 16 9:00 AM CDT documented as of this encounter Care Teams Traveling Missionary Relationship Specialty Start Date End Date Annalisa Christopher MD [address] [place] [address] PCP - General 07/07/08 documented as of this encounter
--- OUTSIDE RECORDS SUMMARY | 2024-10-06 18:45 | XMS_ITS | Encounter Summary ---
Author Organization [facility] Address [address] [place] [address] Care Team Providers Care Thermometer Tester Name Role Phone Annalisa Christopher MD Primary Care Provider [phone] Reason for Visit * Reason Comments Physical Encounter Details Date Type Department Care Team (Late st Contact Info) Description 04/22/2024 12:00 PM CDT Office Visit [facility] [place] [address] [facility] [address] [place] [address] Pearl Junior, SAI [address] [facility] [address] [place] [address] Encounter for routine adult health [...] Wt 93.5 kg (206 lb 3.2 oz) LmT518% BMI 32.30 kg/m?? HPI: Fabiana Pryor is a 48 y.o. female that presents today for Physical Went to [facility] in [place], [place].. had hormones checked and began HRT. [...] BREAST AUGMENTATION 2006 [facility] [place] DELIVERY ONLY 2003 [place] DELIVERY ONLY 08/31/2011 SECTION performed by Douglas Patricio MD at [facility] L&D [place] DILATION & CURETTAGE DX&/THER NONOBSTETRIC 09/08/2010 DILATATION AND CURETTAGE SUCTION performed by DOUGLAS PATRICIO at [facility] Current Outpatient Medications Medication Sig [...] 1 Device 0 fluticasone (FLONASE) 50 mcg/spray [place], Suspension Administer 2 Sprays in each nostril [...] (or part of it) was transcribed using [employer] speaking computerized voice recognition without a human tool and die repair. This report may or may not have [...] Office Visit [facility] [address] [place] [address] Annalisa Christopher MD [address] [place] [address] documented as of this encounter [...] 2:42 PM CDT) COLOGUARD RESULT Negative Negative 2Peer (Qlipso) Comment: NEGATIVE TEST RESULT. A negative Cologuard [...] Rodriguez. velma al, N Engl J Med 2014;370(14):2183-6325) The normal value (reference range) for this assay is negative. COLOGUARD RE-SCREENING RECOMMENDATION: Periodic colorectal cancer screening is an important part of preventive healthcare for asymptomatic individuals at average risk for colorectal cancer. ??Following a negative Cologuard result, the [place] Cancer Society and U.S. Multi-Society Task Force screening guidelines recommend a Cologuard re-screening interval of 3 years. References: Welsh Cancer Society Guideline for Colorectal Cancer Screening: https://www.cancer.org/cancer/wvkxk-rggkxi-rhwmug/ejjxzyegj-lgjdzzurt-kqzihvk/ac s-rec ommendations.html.; Compa DELATORRE, Santos CARO, Cass SungK, Colorectal Cancer Screening: Recommendations for Physicians and Patients from the U.S. Multi-Society Task Force on Colorectal Cancer Screening , Am J Gastroenterology 2017; 112:8139-0066. TEST DESCRIPTION: Composite algorithmic analysis of stool [...] Rodriguez. velma al, N Engl J Med 2014;370(14):2656-7767.) Cologuard may produce a false negative or false positive result (no colorectal cancer or precancerous polyp present at colonoscopy follow up). A negative Cologuard test result does not guarantee the absence of CRC or advanced adenoma (pre-cancer). The current Cologuard screening interval is every 3 years. (Wel[place] Cancer Society and U.S. Multi-Society Task Force). Cologuard performance data in a 10,000 patient pivotal study using colonoscopy as the reference method can be accessed at the following location: www.RapidEngines/results. Additional description of the Cologuard test process, warnings and precautions can be found at www.cologProteostasis Therapeuticsrd.W4. Stool STOOL SPECIMEN / Unknown 04/26/2024 2:42 PM CDT 04/27/2024 11:24 AM CDT Pearl Junior HOSPICE LIAISON BODY FLUIDS AND STO OLS [facility] (PRN) CLIA # [id number] [address] , [address] [place] [address] * VITAMIN D 25 HYDROXY (04/24/2024 7:16 AM CDT) VITAMIN D, 25 OH, TOTAL 87 30 - 100 ng/mL [facility] Comment: Vitamin D Status ? 25-OH Vitamin D: Deficiency: ?<20 ng/mL Insufficiency: ? 20 - 29 ng/mL Optimal: ? > or = 30 ng/mL For 25-OH Vitamin D testing on patients on D2-supplementation and patients for whom quantitation of D2 and D3 fractions is required, the Merchantry() 25-OH VIT D, (D2,D3), LC/MS/MS is recommended: order code [id number] (patients >2yrs). See Note 1 Note 1 For additional information, please refer to http://education.Mithridion.W4/faq/SOV528 (This link is being provided for informational/ educational purposes only.) FASTING:YES FASTING: YES Test Performed at: [facility] [address] [place] ??[address] Albin Lewis MD Blood 04/24/2024 7:16 AM CDT 04/24/2024 7:17 AM CDT Pearl Junior HOSPICE LIAISON CHEMISTRY ORDERABLE [facility] [phone] [facility] [address] [place] [address] * (ABNORMAL) COMPREHENSIVE METABOLIC PANEL (04/24/2024 7:16 [...] Comment: FASTING:YES FASTING: YES Test Performed at: [facility] ??[phone] Albin Lewis MD Blood 04/24/2024 7:16 AM CDT 04/24/2024 7:17 AM CDT Pearl Junior NP CHEMISTRY ORDERABLE [facility] [phone] [address] * (ABNORMAL) HEMOGLOBIN A1C (04/24/2024 7:16 AM CDT) HEMOGLOBIN A1C 5.7(H) <5.7 % of total Hgb [facility] Comment: For someone without known diabetes, [...] ESTIMATED AVERAGE GLUCOSE (MG/DL) 117 mg/dL [facility] ESTIMATED AVERAGE GLUCOSE (MMOL/L) 6.5 mmol/L [facility] Comment: ? This test was performed on the Cadence halley c503 platform. Effective 12/11/23, a change in test platforms from the Baker Produce Runner to the Cadence hallye c503 may have shifted HbA1c results compared to historical results. Based on laboratory validation testing conducted at [facility], the Cadence platform relative to the Baker [...] recommended. FASTING:YES FASTING: YES Test Performed at: [place] [address] [place] ??[address] Albin Lewis Blood 04/24/2024 7:16 AM CDT 04/24/2024 7:17 AM CDT Pearl Junior NP CHEMISTRY ORDERABLE [facility] [phone] [facility] [place] [address] [place] [address] * (ABNORMAL) LIPID PANEL (04/24/2024 7:16 AM CDT) CHOLESTEROL 201(H) <200 mg/dL [facility] HDL 54 > OR = 50 mg/dL [facility] TRIGLYCERIDE 85 <150 mg/dL [facility] LDL CALCULATED 129(H) mg/dL (calc) [facility] Comment: Reference range: <100 Desirable range <100 mg/dL for primary prevention; ?? <70 mg/dL for patients with CHD or diabetic patients with > or = 2 CHD risk factors. LDL-C is now calculated using the Thony calculation, which is a validated novel method providing better accuracy than the Friedewald equation in the estimation of LDL-C. Boris COLEMAN et al. TONJA. 2013;310(19): 6201-5655 (http://education.Mithridion.W4/faq/BUT977) CHOL/HDL RATIO 3.7 <5.0 (calc) [facility] NON-HDL CHOLESTEROL 147(H) <130 mg/dL (calc) [facility] Comment: For patients with diabetes plus 1 major ASCVD risk factor, treating to a non-HDL-C goal of <100 mg/dL (LDL-C of <70 mg/dL) is considered a therapeutic option. Test Performed at: [facility] [address] [place] ??[address] Albin Lewis MD Blood 04/24/2024 7:16 AM CDT 04/24/2024 7:17 AM CDT Pearl Junior NP CHEMISTRY ORDERABLE [facility] [phone] [facility] [address] [place] [address] documented in this encounter Visit Diagnoses Diagnosis [...] mellitus documented in this encounter Care Teams Thermometer Tester Relationship Specialty Start Date End Date Annalisa Christopher MD [address] [facility] [address] [place] [address] PCP - General 07/07/08 documented as of this encounter
--- OUTSIDE RECORDS SUMMARY | 2024-10-06 18:45 | XMS_ITS | Encounter Summary ---
Author Organization [facility] Address [address] [place] [address] Care Team Providers Care Veterinary Parasitologist Name Role Phone Annalisa Christopher MD Primary Care Provider [phone] Encounter Details Date Type Department Care Team [...] Visit [facility] Primary Care - [facility] [address] [place] [address] [place] [address] Annalisa Christopher MD [address] [place] [address] [place] [address] documented as of this encounter Visit Diagnoses Not on filedocumented in this encounter Care Teams Veterinary Parasitologist Relationship Specialty Start Date End Date Annalisa Christopher MD [address] [place] [address] [address] [place] [address] PCP - General 07/07/08 documented as of this encounter
--- OUTSIDE RECORDS SUMMARY | 2024-10-06 18:45 | XMS_ITS | Encounter Summary ---
Author Organization [facility] Address [address] [place] [address] Care Team Providers Care Value Stream Coach Name Role Phone Annalisa Christopher MD Primary Care Provider [phone] Reason for Visit * Reason Comments Medication Refill Encounter Details Date Type Department Care Team (Late st Contact Info) Description 11/24/[address] [place] [address] Annalisa Christopher MD [address] [place] [address] [address] [place] [address] PTSD (post-traumatic stress disorder) Social [...] Visit [facility] [address] [place] [address] [address] [place] [address] Annalisa Christopher MD [address] [place] [address] [address] [place] [address] documented as of this encounter Visit Diagnoses Diagnosis PTSD (post-traumatic stress disorder) Posttraumatic stress disorder documented in this encounter Care Teams Value Stream Coach Relationship Specialty Start Date End Date Annalisa Christopher MD [address] [place] [address] PCP - General 07/07/08 documented as of this encounter
--- OUTSIDE RECORDS SUMMARY | 2024-10-06 18:45 | XMS_ITS | Encounter Summary ---
Author Organization [facility] Address [address] [place] [address] Care Team Providers Care Transcription Specialist Name Role Phone Annalisa Christopher MD Primary Care Provider [phone] Reason for Visit * Reason Comments Med Refill Encounter Details Date Type Department Care Team (Late st Contact Info) Description 08/06/[address] [place] [address] Elkin Alvarez MD NO ADDRESS ON [...] CDT Office Visit [facility] [address] [place] [address] [address] [place] [address] Annalisa Chrisotpher MD [address] [place] [address] [address] [place] [address] documented as of this encounter Visit Diagnoses Diagnosis Mild intermittent asthma without complication Unspecified asthma documented in this encounter Care Teams Transcription Specialist Relationship Specialty Start Date End Date Annalisa Christopher MD [address] [facility] [address] [place] [address] PCP - General 07/07/08 documented as of this encounter
--- OUTSIDE RECORDS SUMMARY | 2024-10-06 18:45 | XMS_ITS | Encounter Summary ---
Author Organization [facility] Address [address] [place] [address] Care Team Providers Care Retail Security Professional Name Role Phone Annalisa Christopher MD Primary Care Provider [phone] Reason for Visit * Reason Comments Medication Refill Encounter Details Date Type Department Care Team (Late st Contact Info) Description 07/02/[address] [place] [address] Annalisa Christopher MD [address] [place] [address] [address] [place] [address] PTSD (post-traumatic stress disorder) Social [...] Description 04/25/2025 8:20 AM CDT Office Visit [facility] [address] [place] [address] [address] [place] [address] Annalisa Christopher MD [address] [place] [address] [address] [place] [address] documented as of this encounter Visit Diagnoses Diagnosis PTSD (post-traumatic stress disorder) Posttraumatic stress disorder documented in this encounter Additional Health Concerns Assessment Noted Time PHQ-9 Depression Total Score: 1 06/06/20 16 9:00 AM CDT documented as of this encounter Care Teams Retail Security Professional Relationship Specialty Start Date End Date Annalisa Christopher MD [address] [place] [address] PCP - General 07/07/08 documented as of this encounter
--- OUTSIDE RECORDS SUMMARY | 2024-10-06 18:45 | XMS_ITS | Encounter Summary ---
Author Organization [facility] Address [address] [place] [address] Care Team Providers Care Chemistry Quality Control Analyst Name Role Phone Annalisa Christopher MD Primary Care Provider [phone] Encounter Details Date Type Department Care Team [...] Visit [facility] Primary Care - [facility] [address] [place] [address] [place] [address] Annalisa Christopher MD [address] [place] [address] [address] [place] [address] documented as of this encounter Visit Diagnoses Not on filedocumented in this encounter Care Teams Chemistry Quality Control Analyst Relationship Specialty Start Date End Date Annalisa Christopher MD [address] [place] [address] [address] [place] [address] PCP - General 07/07/08 documented as of this encounter
--- OUTSIDE RECORDS SUMMARY | 2024-10-06 18:45 | XMS_ITS | Encounter Summary ---
Author Organization [facility] Address [address] [place] [address] Care Team Providers Care Loss Prevention Officer Name Role Phone Annalisa Christopher MD Primary Care Provider [phone] Encounter Details Date Type Department Care Team [...] Description 04/25/2025 8:20 AM CDT Office Visit [facility] Primary Care - [facility] [address] [place] [address] [place] [address] Annalisa Christopher MD [address] [place] [address] [address] [place] [address] documented as of this encounter Visit Diagnoses Not on filedocumented in this encounter Care Teams Loss Prevention Officer Relationship Specialty Start Date End Date Annalisa Christopher MD [address] [place] [address] [address] [place] [address] PCP - General 07/07/08 documented as of this encounter
--- OUTSIDE RECORDS SUMMARY | 2024-10-06 18:45 | XMS_ITS | Encounter Summary ---
Author Organization [facility] Address [address] [place] [address] Care Team Providers Care Ux Engineer Name Role Phone Annalisa Christopher MD Primary Care Provider [phone] Reason for Visit * Reason Comments Medication Refill Encounter Details Date Type Department Care Team (Late st Contact Info) Description 12/31/2020 Refill [facility] [address] [place] [address] [place] [address] Annalisa Christopher MD [address] [place] [address] [address] [place] [address] Mild intermittent asthma without complication [...] 04/25/2025 8:20 AM CDT Office Visit [facility] [address] [place] [address] [address] [place] [address] Annalisa Christopher MD [address] [place] [address] [address] [place] [address] documented as of this encounter Visit Diagnoses Diagnosis Mild intermittent asthma without complication Unspecified asthma documented in this encounter Care Teams Ux Engineer Relationship Specialty Start Date End Date Annalisa Christopher MD [address] [facility] [address] [place] [address] PCP - General 07/07/08 documented as of this encounter
--- OUTSIDE RECORDS SUMMARY | 2024-10-06 18:45 | XMS_ITS | Encounter Summary ---
Author Organization [facility] Address [address] [place] [address] Care Team Providers Care Pavilion Cutter Name Role Phone Annalisa Christopher MD Primary Care Provider [phone] Reason for Visit * Reason Onset Date Comments scratchy throat 09/03/2021 Encounter Details Date Type Department Care Team (Late st Contact Info) Description 09/03/2021 Telephone [facility] Primary Care - [address] [place] [address] Annalisa Christopher MD [address] [place] [address] [place] [address] scratchy throat Social History Tobacco Use [...] 09/03/2021 3:23 PM CST Spoke to pt TURNER * Telephone Encounter - Annalisa Christopher MD - 09/03/2021 3:21 PM CST Rx sent Please inform patient TURNER * Telephone Encounter - Shelly Vidal - 09/03/2021 1:47 PM CST Pt dtr was dx with strep throat 2 days ago They have been sharing cups all week Pt is having a scratchy throat and req abx TURNER documented in this encounter Plan of Treatment Upcoming Encounters Date Type Department Care Team (Late st Contact Info) Description 04/25/2025 8:20 AM CDT Office Visit [facility] Primary Care - [facility] [address] [facility] [address] [place] [address] Annalisa Christopher MD [address] [facility] [address] [place] [address] documented as of this encounter Visit Diagnoses Not on filedocumented in this encounter Care Teams Pavilion Cutter Relationship Specialty Start Date End Date Annalisa Christopher MD [address] [facility] [address] [place] [address] PCP - General 07/07/08 documented as of this encounter
--- OUTSIDE RECORDS SUMMARY | 2024-10-06 18:45 | XMS_ITS | Encounter Summary ---
Author Organization [facility] Address [address] [place] [address] Care Team Providers Care Textile Machine Mechanic Name Role Phone Annalisa Christopher MD Primary Care Provider [phone] Reason for Visit * Reason Comments Medication Refill Encounter Details Date Type Department Care Team (Late st Contact Info) Description 10/06/2021 Refill [facility] Primary Care - [address] [place] [address] Annalisa Christopher MD [address] [place] [address] [address] [place] [address] PTSD (post-traumatic stress disorder) Social [...] encounter Miscellaneous Notes * Telephone Encounter - kSylar Leonardo - 10/06/2021 1:59 PM CST GRIFFIN 10- SHOP MANAGER documented in this encounter Plan of Treatment Upcoming Encounters Date Type Department Care Team (Late st Contact Info) Description 04/25/2025 8:20 AM CDT Office Visit [facility] [place] [place] [address] [facility] [address] [place] [phone] Annalisa Christopher MD [address] [facility] [address] [place] [address] documented as of this encounter Visit Diagnoses Diagnosis PTSD (post-traumatic stress disorder) Posttraumatic stress disorder documented in this encounter Care Teams Textile Machine Mechanic Relationship Specialty Start Date End Date Annalisa Christopher MD [address] [facility] [address] [place] [address] PCP - General 07/07/08 documented as of this encounter
--- OUTSIDE RECORDS SUMMARY | 2024-10-06 18:45 | XMS_ITS | Encounter Summary ---
Author Organization [facility] Address [address] [place] [address] Care Team Providers Care Spool Cleaner Name Role Phone Annalisa Christopher MD Primary Care Provider [phone] Reason for Visit * Reason Onset Date Comments Medication Refill 05/09/2022 Encounter Details Date Type Department Care Team (Late st Contact Info) Description 05/09/2022 Refill [facility] Primary Care - [address] [place] [address] Annalisa Christopher MD [address] [place] [address] [place] [address] Mild intermittent asthma without complication Social [...] [facility] Primary Care - [facility] [address] [facility] [address] [place] [phone] Annalisa Christopher MD [address] [facility] [address] [place] [address] documented as of this encounter Visit Diagnoses Diagnosis Mild intermittent asthma without complication Unspecified asthma documented in this encounter Care Teams Spool Cleaner Relationship Specialty Start Date End Date Annalisa Christopher MD [address] [facility] [address] [place] [address] PCP - General 07/07/08 documented as of this encounter
--- OUTSIDE RECORDS SUMMARY | 2024-10-06 18:45 | XMS_ITS | Encounter Summary ---
Author Organization [facility] Address [address] [place] [address] Care Team Providers Care Doctor Of Osteopathy Name Role Phone Annalisa Christopher MD Primary Care Provider [phone] Reason for Visit * Reason Comments Physical Encounter Details Date Type Department Care Team (Late st Contact Info) Description 04/29/2022 9:20 AM CDT [facility] Primary Care - [address] [place] [address] Annalisa Christopher MD [address] [place] [address] [address] [place] [address] Wellness examination (Primary Dx); Mixed [...] Device 0 ??? fluticasone (FLONASE) 50 mcg/spray [place], Suspension Administer 2 Sprays in each nostril [...] [facility] [address] [place] [address] Annalisa Christopher MD [address] [place] [address] documented as of this encounter [...] tremor documented in this encounter Care Teams Doctor Of Osteopathy Relationship Specialty Start Date End Date Annalisa Christopher MD [address] [place] [address] PCP - General 07/07/08 documented as of this encounter
--- OUTSIDE RECORDS SUMMARY | 2024-10-06 18:45 | XMS_ITS | Encounter Summary ---
Author Organization [facility] Address [address] [place] [address] Care Team Providers Care Sheet Sewer Name Role Phone Annalisa Christopher MD Primary Care Provider [phone] Encounter Details Date Type Department Care Team [...] Visit [facility] Primary Care - [facility] [address] [place] [address] [place] [address] Annalisa Christopher MD [address] [place] [address] [place] [address] documented as of this encounter Visit Diagnoses Not on filedocumented in this encounter Care Teams Sheet Sewer Relationship Specialty Start Date End Date Annalisa Christopher MD [address] [place] [address] [address] [place] [address] PCP - General 07/07/08 documented as of this encounter
--- OUTSIDE RECORDS SUMMARY | 2024-10-06 18:45 | XMS_ITS | Encounter Summary ---
Author Organization [facility] Address [address] [facility] Attn: Epic Prelude ADT [place] [address] Care Team Providers Care Medical Representative Name Role Phone Annalisa Christopher MD Primary Care Provider [phone] Encounter Details Date Type Department Care Team [...] [facility] - [facility] [address] [place] [address] [address] [place] [address] Annalisa Christopher MD [address] [place] [address] [address] [place] [address] documented as of this encounter Visit Diagnoses Not on filedocumented in this encounter Additional Health Concerns Assessment Noted Time PHQ-9 Depression Total Score: 1 06/06/20 16 9:00 AM CDT documented as of this encounter Care Teams Medical Representative Relationship Specialty Start Date End Date Annalisa Christopher MD [address] [facility] [address] [place] [address] PCP - General 07/07/08 documented as of this encounter
--- OUTSIDE RECORDS SUMMARY | 2024-10-06 18:45 | XMS_ITS | Encounter Summary ---
Author Organization [facility] Address [address] [place] [address] Care Team Providers Care Supervisor Sintering Plant Name Role Phone Annalisa Christopher MD Primary Care Provider [phone] Reason for Visit * Reason Comments Med Refill Encounter Details Date Type Department Care Team (Late st Contact Info) Description 01/27/2024 Refill [facility] [address] [place] [address] [place] [address] Annalisa Christopher MD [address] [place] [address] [address] [place] [address] Mild intermittent asthma without complication [...] 04/25/2025 8:20 AM CDT Office Visit [facility] [address] [place] [address] [address] [place] [address] Annalisa Christopher MD [address] [place] [address] [address] [place] [address] documented as of this encounter Visit Diagnoses Diagnosis Mild intermittent asthma without complication Unspecified asthma documented in this encounter Care Teams Supervisor Sintering Plant Relationship Specialty Start Date End Date Annalisa Christopher MD [address] [facility] [address] [place] [address] PCP - General 07/07/08 documented as of this encounter
--- OUTSIDE RECORDS SUMMARY | 2024-10-06 18:45 | XMS_ITS | Encounter Summary ---
Author Organization [facility] Address [address] [place] [address] Care Team Providers Care Molder Vacuum Name Role Phone Annalisa Christopher MD Primary Care Provider [phone] Reason for Visit * Reason Comments Med Refill Encounter Details Date Type Department Care Team (Late st Contact Info) Description 09/29/2023 Refill [facility] Primary Care - [address] [place] [address] Annalisa Christopher MD [address] [place] [address] [address] [place] [address] Mild intermittent asthma without complication [...] Renuka Lubin RN - 09/29/2023 7:14 AM DRY MIXER Drug alert GRIFFIN: 04/19/2023 MIXER documented in this encounter Plan of Treatment Upcoming Encounters Date Type Department Care Team (Late st Contact Info) Description 04/25/2025 8:20 AM CDT Office Visit [facility] [address] [place] [address] Annalisa Christopher MD [address] [place] [address] documented as of this encounter Visit Diagnoses Diagnosis Mild intermittent asthma without complication Unspecified asthma documented in this encounter Care Teams Molder Vacuum Relationship Specialty Start Date End Date Annalisa Christopher MD [address] [place] [address] PCP - General 07/07/08 documented as of this encounter
--- OUTSIDE RECORDS SUMMARY | 2024-10-06 18:45 | XMS_ITS | Encounter Summary ---
Author Organization [facility] Address [address] [facility] Attn: [place] [address] Care Team Providers Care Pot Room Supervisor Name Role Phone Annalisa Christopher MD Primary Care Provider [phone] Encounter Details Date Type Department Care Team [...] COVID-19? No / Unsure 10/22/2020 9:45 AM RAILROAD WHEELS AND AXLE INSPECTOR documented as of this encounter Plan of Treatment Upcoming Encounters Date Type Department Care Team (Late st Contact Info) Description 04/25/2025 8:20 AM CDT Office Visit [facility] [address] [place] [address] [place] [address] Annalisa Christopher MD [address] [place] [address] [address] [place] [address] documented as of this encounter Visit Diagnoses Not on filedocumented in this encounter Care Teams Pot Room Supervisor Relationship Specialty Start Date End Date Annalisa Christopher MD [address] [facility] [address] [place] [address] PCP - General 07/07/08 documented as of this encounter
--- OUTSIDE RECORDS SUMMARY | 2024-10-06 18:45 | XMS_ITS | Encounter Summary ---
Author Organization [facility] Address [address] [place] [address] Care Team Providers Care Weapons Electrical Engineering Officer Name Role Phone Annalisa Christopher MD Primary Care Provider [phone] Reason for Visit * Reason Comments Medication Refill Encounter Details Date Type Department Care Team (Late Contact Info) Description 03/23/2021 Refill [facility] Primary Care - [address] [place] [address] Annalisa Christopher MD [address] [place] [address] [address] [place] [address] Mild intermittent asthma without complication [...] Visit [facility] Primary Care - [facility] [address] [place] [address] Annalisa Christopher MD [address] [place] [address] documented as of this encounter Visit Diagnoses Diagnosis Mild intermittent asthma without complication Unspecified asthma documented in this encounter Care Teams Weapons Electrical Engineering Officer Relationship Specialty Start Date End Date Annalisa Christopher MD [address] [place] [address] PCP - General 07/07/08 documented as of this encounter
--- OUTSIDE RECORDS SUMMARY | 2024-10-06 18:45 | XMS_ITS | Encounter Summary ---
Author Organization [facility] Address [address] [facility] Attn: [place] [address] Care Team Providers Care Cone Examiner Name Role Phone Annalisa Christopher MD Primary Care Provider [phone] Encounter Details Date Type Department Care Team [...] 04/25/2025 8:20 AM CDT Office Visit [facility] [address] [place] [address] [address] [place] [address] Annalisa Christopher MD [address] [place] [address] Rd [address] [place] [address] documented as of this encounter Visit Diagnoses Not on filedocumented in this encounter Care Teams Cone Examiner Relationship Specialty Start Date End Date Annalisa Christopher MD [address] [facility] [address] [place] [address] PCP - General 07/07/08 documented as of this encounter
--- OUTSIDE RECORDS SUMMARY | 2024-10-06 18:45 | XMS_ITS | Encounter Summary ---
Author Organization [facility] Address [address] [place] [address] Care Team Providers Care Boiling Tub Operator Name Role Phone Annalisa Christopher MD Primary Care Provider [phone] Encounter Details Date Type Department Care Team [...] [facility] Primary Care - [facility] [address] [place] [address] [place] [address] Annalisa Christopher MD [address] [place] [address] [place] [address] documented as of this encounter Visit Diagnoses Not on filedocumented in this encounter Care Teams Boiling Tub Operator Relationship Specialty Start Date End Date Annalisa Christopher MD [address] [place] [address] [address] [place] [address] PCP - General 07/07/08 documented as of this encounter
--- OUTSIDE RECORDS SUMMARY | 2024-10-06 18:45 | XMS_ITS | Encounter Summary ---
Author Organization [facility] Address [address] [place] [address] Care Team Providers Care Industrial Boilermaker Name Role Phone Annalisa Christopher MD Primary Care Provider [phone] Encounter Details Date Type Department Care Team [...] [facility] Primary Care - [facility] [address] [place] [address] [place] [address] Annalisa Christopher MD [address] [place] [address] [address] [place] [address] documented as of this encounter Visit Diagnoses Not on filedocumented in this encounter Care Teams Industrial Boilermaker Relationship Specialty Start Date End Date Annalisa Christopher MD [address] [place] [address] [address] [place] [address] PCP - General 07/07/08 documented as of this encounter
--- OUTSIDE RECORDS SUMMARY | 2024-10-06 18:45 | XMS_ITS | Encounter Summary ---
Author Organization [facility] Address [address] [place] [address] Care Team Providers Care Screen Cutter And Trimmer Name Role Phone Annalisa Christopher MD Primary Care Provider [phone] Reason for Visit * Reason Onset Date Comments Abnormal Imaging Results 07/23/2021 Encounter Details Date Type Department Care Team (Late st Contact Info) Description 07/23/2021 Telephone [facility] Primary Care - [address] [place] [address] Chloe Hollingsworth NP [address] [facility] [address] [place] [address] Abnormal Imaging Results Social History [...] [facility] Primary Care - [facility] [address] [facility] [address] [place] [address] Annalisa Christopher MD [address] [facility] [address] [place] [address] documented as of this encounter Visit Diagnoses Not on filedocumented in this encounter Care Teams Screen Cutter And Trimmer Relationship Specialty Start Date End Date Annalisa Christopher MD [address] [facility] [address] [place] [address] PCP - General 07/07/08 documented as of this encounter
--- OUTSIDE RECORDS SUMMARY | 2024-10-06 18:45 | XMS_ITS | Encounter Summary ---
Author Organization [facility] Address [address] [place] [address] Care Team Providers Care Vegetable Loader Name Role Phone Annalisa Christopher MD Primary Care Provider [phone] Reason for Visit * Reason Comments Med Change Request Encounter Details Date Type Department Care Team (Late st Contact Info) Description 07/17/[address] [place] [address] Annalisa Christopher MD [address] [place] [address] [address] [place] [address] PTSD (post-traumatic stress disorder) Social [...] Description 04/25/2025 8:20 AM CDT Office Visit [address] [place] [address] Annalisa Christopher MD [address] [place] [address] [place] [address] documented as of this encounter Visit Diagnoses Diagnosis PTSD (post-traumatic stress disorder) Posttraumatic stress disorder documented in this encounter Care Teams Vegetable Loader Relationship Specialty Start Date End Date Annalisa Christopher MD [address] [place] [address] PCP - General 07/07/08 documented as of this encounter
--- OUTSIDE RECORDS SUMMARY | 2024-10-06 18:45 | XMS_ITS | Encounter Summary ---
Author Organization [facility] Address [address] [place] [address] Care Team Providers Care Stonework Supervisor Name Role Phone Annalisa Christopher MD Primary Care Provider [phone] Reason for Visit * Reason Comments Sinus Problem Sxs started about 8 days agoHeadache/ pressureSore throat Coughing up yellowish mucus. At home COVID test yesterday-negative. OTC zyrtec-d daily, flonase, mucinex Encounter Details Date Type Department Care Team (Late st Contact Info) Description 07/18/2024 9:40 AM CDT Office Visit [facility] Primary Care - [address] [place] [address] Annalisa Christopher MD [address] [place] [address] [place] [address] Acute non-recurrent maxillary sinusitis (Primary Dx) [...] Wt 88.5 kg (195 lb 3.2 oz) FxV289% BMI 30.57 kg/m?? Physical Exam Constitutional: General: [...] explained to the patient, who indicates understanding. L CARRIER ASSOCIATE documented in this encounter Plan of Treatment Upcoming Encounters Date Type Department Care Team (Late st Contact Info) Description 04/25/2025 8:20 AM CDT Office Visit [facility] Primary Care - [address] [place] [address] Annalisa Christopher MD [facility] [address] [place] [address] documented as of this encounter Visit Diagnoses Diagnosis Acute non-recurrent maxillary sinusitis- Primary documented in this encounter Care Teams Stonework Supervisor Relationship Specialty Start Date End Date Annalisa Christopher MD [address] [place] [address] [place] [address] PCP - General 07/07/08 documented as of this encounter
--- OUTSIDE RECORDS SUMMARY | 2024-10-06 18:45 | XMS_ITS | Encounter Summary ---
Author Organization [facility] Address [address] [place] [address] Care Team Providers Care Wind Plant Manager Name Role Phone Annalisa Christopher MD Primary Care Provider [phone] Encounter Details Date Type Department Care Team [...] [facility] Primary Care - [facility] [address] [place] [address] [place] [address] Annalisa Christopher MD [address] [place] [address] [place] [address] documented as of this encounter Visit Diagnoses Not on filedocumented in this encounter Care Teams Wind Plant Manager Relationship Specialty Start Date End Date Annalisa Christopher MD [address] [place] [address] [address] [place] [address] PCP - General 07/07/08 documented as of this encounter
--- OUTSIDE RECORDS SUMMARY | 2024-10-06 18:45 | XMS_ITS | Encounter Summary ---
Author Organization [facility] Address [address] [place] [address] Care Team Providers Care Wool Scourer Name Role Phone Annalisa Christopher MD Primary Care Provider [phone] Reason for Referral * Eval and Treat (Routine) - Closed Specialty Diagnoses / Procedures Referred By Contac t Referred To Contact Diagnoses Screening for colorectal cancer Procedures [place] OFFICE/OUTPATIENT ESTABLISHED MOD MDM 30-39 MIN [place] OFFICE/OUTPATIENT NEW MODERATE MDM 45-59 MINUTES COLON Annalisa Christopher MD [address] [facility] [address] [place] [address] [facility] [address] [place] [address] Referral ID Status Reason Start Date Expiration Date Visits Requested Visits Authorized [id number] Closed Performing Department to Schedule 04/19/2023 04/18/2024 1 1 Reason for Visit * Reason Comments Physical Encounter Details Date Type Department Care Team (Late st Contact Info) Description 04/19/2023 11:00 AM CDT Office Visit [facility] Primary Care - [facility] [address] [facility] [address] [place] [address] Annalisa Christopher MD [address] [place] [address] [address] [place] [address] Physical (Primary Dx); Screening for [...] 1 Device 0 fluticasone (FLONASE) 50 mcg/spray [place], Suspension Administer [...] COVID-19 booster recommended Mammograms patient receiving outside [facility] Fabiana Pryor expressed good understanding of the [...] 8:20 AM CDT Office Visit [facility] Care - [address] [place] [address] Annalisa Christopher MD [address] [place] [address] Rd [address] [place] [address] Scheduled Referrals Name Type Priority [...] 11:34 AM CDT) COLOR UA YELLOW YELLOW [facility] CLARITY UA CLEAR CLEAR [facility] SPECIFIC GRAVITY UA 1.016 1.001 - 1.035 [facility] PH UA 7.5 5.0 - 8.0 [facility] GLUCOSE UA NEGATIVE NEGATIVE [facility] BILIRUBIN UA NEGATIVE NEGATIVE [facility] KETONES UA NEGATIVE NEGATIVE [facility] BLOOD UA TRACE(A) NEGATIVE [facility] PROTEIN UA NEGATIVE NEGATIVE [facility] NITRITE UA NEGATIVE NEGATIVE [facility] LEUKOCYTE ESTERASE UA 3+(A) NEGATIVE [facility] WBC UA 0-5 < OR = 5 /HPF [facility] RBC UA 0-2 < OR = 2 /HPF [facility] EPITHELIAL CELLS, URINE 6-10(A) < OR = 5 /HPF [facility] BACTERIA UA NONE SEEN NONE SEEN /HPF [facility] HYALINE CAST NONE SEEN NONE SEEN /LPF [facility] URINE NOTE [facility] Comment: This urine was analyzed for the presence of WBC, RBC, bacteria, casts, and other formed elements. Only those elements seen were reported. FASTING:NO FASTING: NO Test Performed at: [facility] [place] [address] [place] ??[phone] Albin Lewis 04/19/2023 11:3 4 AM CDT 04/19/2023 11:35 AM CDT Annalisa Christopher MD URINE ORDERABLES [facility] [phone] [place] [address] [place] [address] * (ABNORMAL) CBC WITH DIFFERENTIAL (04/19/2023 11:34 AM CDT) WBC 6.4 3.8 - 10.8 Thousand/ uL [facility] RBC 5.00 3.80 - 5.10 Million/u L [facility] HEMOGLOBIN 15.2 11.7 - 15.5 g/dL [facility] HEMATOCRIT 46.6(H) 35.0 - 45.0 % [facility] MCV 93.2 80.0 - 100.0 fL [facility] MCH 30.4 27.0 - 33.0 pg [facility] MCHC 32.6 32.0 - 36.0 g/dL [facility] RDW 12.4 11.0 - 15.0 [...] 200 - 950 cells/uL [facility] EOSINOPHIL ABSOLUTE 51 15 - 500 cells/uL [...] Comment: FASTING:NO FASTING: NO Test Performed at: [facility] [address] [place] ??[phone] Albin Lewis Blood 04/19/2023 11:3 4 AM CDT 04/19/2023 11:35 AM CDT Annalisa Christopher MD HEMATOLOGY ORDERABLE S Performing Organization Address City/State/ZIP [facility] Phone Number [facility] [phone] [facility] [place] [address] [place] [address] * TSH REFLEXIVE (04/19/2023 11:34 AM CDT) TSH 0.74 mIU/L [facility] Comment: ?Reference Range ?> or = 20 Years ??0.40-4.50 ? Ranges ?First trimester ?0.26-2.66 ?Second trimester ?? 0.55-2.73 ?Third trimester ?0.43-2.91 FASTING:NO FASTING: NO Test Performed at: [facility] [address] [place], [place] ??[address] Albin Lewis MD Blood 04/19/2023 11:3 4 AM CDT 04/19/2023 11:35 AM CDT Annalisa Christopher MD CHEMISTRY ORDERABLES Performing Organization Address City/State/ZIP [facility] Phone Number [facility] [phone] [facility] [address] [facility] [place] [address] * HEMOGLOBIN A1C (04/19/2023 11:34 AM CDT) HEMOGLOBIN A1C 5.4 <5.7 % of total Hgb [facility] Comment: For the purpose of screening for the presence of diabetes: <5.7% ? Consistent with the absence of diabetes 5.7-6.4% ?Consistent with increased risk for diabetes ?(prediabetes) > or =6.5% ??Consistent with diabetes This assay result is consistent with a decreased risk of diabetes. Currently, no consensus exists regarding use of hemoglobin A1c for diagnosis of diabetes in children. According to [place] Diabetes Association (ADA) guidelines, hemoglobin A1c <7.0% represents optimal control in non- diabetic patients. Different metrics may apply to specific patient populations. Standards of Medical Care in Diabetes(ADA). ?? ESTIMATED AVERAGE GLUCOSE (MG/DL) 108 mg/dL [facility] ESTIMATED AVERAGE GLUCOSE (MMOL/L) 6.0 mmol/L [facility] Comment: FASTING:NO FASTING: NO Test Performed at: [facility] [address] [place], [place] ??[address] Albin Lewis Blood 04/19/2023 11:3 4 AM CDT 04/19/2023 11:35 AM CDT Annalisa Christopher MD CHEMISTRY ORDERABLES [facility] [phone] [facility] [place] [address] [place] [address] * (ABNORMAL) LIPID PANEL (04/19/2023 11:34 AM [...] LDL-C. Boris COLEMAN et al. TONJA. 2013;310(19): 5403-7915 (http://education.Chalkable/faq/COS419) CHOL/HDL RATIO 4.1 <5.0 (calc) [facility] TOTAL NON-HDL CHOL(LDL+VLDL) 163(H) <130 mg/dL (calc) [facility] Comment: For patients with diabetes plus 1 major ASCVD risk factor, treating to a non-HDL-C goal of <100 mg/dL (LDL-C of <70 mg/dL) is considered a therapeutic option. FASTING:NO FASTING: NO Test Performed at: [place] [address] [place] ??[phone] Albin Mulligan Blood 04/19/2023 11:3 4 AM CDT 04/19/2023 11:35 AM CDT Annalisa Christopher MD CHEMISTRY ORDERABLES [facility] [phone] [place] [address] [place] [address] * COMPREHENSIVE METABOLIC PANEL (04/19/2023 11:34 AM CDT) GLUCOSE 96 65 - 139 mg/dL [facility] Comment: ? Non-fasting reference interval BUN 14 7 - 25 mg/dL [facility] CREATININE 0.80 0.50 - 0.99 mg/dL [facility] GFR 91 > OR = 60 mL/min/1 .73m2 [facility] Comment: The eGFR is based on the CKD-EPI 2020 equation. To calculate the new eGFR from a previous Creatinine or Cystatin C result, go to https://www.kidney.org/professionals/ kdoqi/gfr%5Fcalculator BUN/CREAT RATIO NOT APPLICABLE 6 - 22 (calc) [facility] SODIUM 135 135 - 146 mmol/L [facility] POTASSIUM 4.5 3.5 - 5.3 mmol/L [facility] CHLORIDE 102 98 - 110 mmol/L [facility] CO2 28 20 - 32 mmol/L [facility] CALCIUM 9.4 8.6 - 10.2 mg/dL [facility] TOTAL PROTEIN 7.1 6.1 - 8.1 g/dL [facility] ALBUMIN 4.5 3.6 - 5.1 g/dL [facility] GLOBULIN 2.6 1.9 - 3.7 g/dL (calc) [facility] ALBUMIN/GLOBULIN RATIO 1.7 1.0 - 2.5 (calc) [facility] BILIRUBIN TOTAL 0.5 0.2 - 1.2 mg/dL [facility] ALKALINE PHOSPHATASE 86 31 - 125 U/L [facility] AST 18 10 - 35 U/L [facility] ALT 25 6 - 29 U/L [facility] Comment: FASTING:NO FASTING: NO Test Performed at: [place] [address] [place] ??[phone] AnnaReynaldo Mulligan Blood 04/19/2023 11:3 4 AM CDT 04/19/2023 11:35 AM CDT Annalisa Christopher MD CHEMISTRY ORDERABLES [facility] [phone] [place] [address] [place] [address] documented in this encounter Visit Diagnoses Diagnosis Physical- Primary Screening for colorectal cancer Special screening for malignant neoplasms, colon Need for Tdap vaccination Need for prophylactic vaccination with combined iznqnjwdka-egkvdrw-vsxmaryme (DTP) vaccine Colon cancer screening Special screening for malignant neoplasms, colon Mixed hyperlipidemia Mild intermittent asthma without complication Unspecified asthma Obesity (BMI 30.0-34.9) Obesity, unspecified documented in this encounter Care Teams Wool Scourer Relationship Specialty Start Date End Date Annalisa Christopher MD [address] [place] [address] PCP - General 07/07/08 documented as of this encounter
--- OUTSIDE RECORDS SUMMARY | 2024-10-06 18:45 | XMS_ITS | Encounter Summary ---
Author Organization [facility] Address [address] [place] [address] Care Team Providers Care Back End Developer Name Role Phone Annalisa Christopher MD Primary Care Provider [phone] Reason for Visit * Reason Comments Medication Refill Encounter Details Date Type Department Care Team (Late st Contact Info) Description 02/04/2020 Refill [facility] - [address] [place] [address] Annalisa Christopher MD [address] [place] [address] [address] [place] [address] PTSD (post-traumatic stress disorder) Social [...] Description 04/25/2025 8:20 AM CDT Office Visit [facility] [address] [facility] [address] [place] [address] Annalisa Christopher MD [address] [place] [address] documented as of this encounter Visit Diagnoses Diagnosis PTSD (post-traumatic stress disorder) Posttraumatic stress disorder documented in this encounter Additional Health Concerns Assessment Noted Time PHQ-9 Depression Total Score: 1 06/06/20 16 9:00 AM CDT documented as of this encounter Care Teams Back End Developer Relationship Specialty Start Date End Date Annalisa Christopher MD [address] [place] [address] PCP - General 07/07/08 documented as of this encounter
--- OUTSIDE RECORDS SUMMARY | 2024-10-06 18:45 | XMS_ITS | Encounter Summary ---
Author Organization [facility] Address [address] [place] [address] Care Team Providers Care Printing Machine Operator Tape Rules Name Role Phone Annalisa Christopher MD Primary Care Provider [phone] Reason for Visit * Reason Comments Med Refill Encounter Details Date Type Department Care Team (Late st Contact Info) Description 05/09/2023 Refill [facility] [address] [place] [address] [place] [address] Annalisa Christopher MD [address] [place] [address] [address] [place] [address] Migraine without status migrainosus, not [...] AM CDT Office Visit [facility] [address] [place] [address] [address] [place] [address] Annalisa Christopher MD [address] [place] [address] [address] [place] [address] documented as of this encounter Visit Diagnoses Diagnosis Migraine without status migrainosus, not intractable, unspecified migraine type documented in this encounter Care Teams Printing Machine Operator Tape Rules Relationship Specialty Start Date End Date Annalisa Christopher MD [address] [facility] [address] [place] [address] PCP - General 07/07/08 documented as of this encounter
--- OUTSIDE RECORDS SUMMARY | 2024-10-06 18:45 | XMS_ITS | Encounter Summary ---
Author Organization [facility] Address [address] [place] [address] Care Team Providers Care Web Site Administrator Name Role Phone Annalisa Christopher MD Primary Care Provider [phone] Encounter Details Date Type Department Care Team (Late Contact Info) Description 02/17/2021 Orders Only [facility] [place] [facility] [address] [facility] [address] [place] [address] Heide Shannon MD [address] [facility] [address] [place] [address] Social History Tobacco Use Types [...] [facility] - [facility] [address] [facility] [address] [place] [address] Annalisa Christopher MD [address] [place] [address] documented as of this encounter Visit Diagnoses Not on filedocumented in this encounter Care Teams Web Site Administrator Relationship Specialty Start Date End Date Annalisa Christopher MD [address] [place] [address] PCP - General 07/07/08 documented as of this encounter
--- OUTSIDE RECORDS SUMMARY | 2024-10-06 18:45 | XMS_ITS | Encounter Summary ---
Author Organization [facility] Address [address] [place] [address] Care Team Providers Care Environmental Web Crawler Name Role Phone Annalisa Christopher MD Primary Care Provider [phone] Encounter Details Date Type Department Care Team [...] Office Visit [facility] Primary Care - [facility] [address] [place] [address] [place] [address] Annalisa Christopher MD [address] [place] [address] [address] [place] [address] documented as of this encounter Visit Diagnoses Not on filedocumented in this encounter Care Teams Environmental Web Crawler Relationship Specialty Start Date End Date Annalisa Christopher MD [address] [place] [address] [address] [place] [address] PCP - General 07/07/08 documented as of this encounter
--- OUTSIDE RECORDS SUMMARY | 2024-10-06 18:45 | XMS_ITS | Encounter Summary ---
Author Organization [facility] Address [address] [place] [address] Care Team Providers Care Registered Public Surveyor Name Role Phone Annalisa Christopher MD Primary Care Provider [phone] Reason for Referral * CT Scan (Routine) - Closed Specialty Diagnoses / Procedures Referred By Contac t Referred To Contact Radiology Diagnoses Flank pain Procedures CT ABDOMEN PELVIS WO CONTRAST Chloe Hollingsworth NP [address] [facility] [address] [place] [address] Scan [address] [place] [address] [place] [phone] Referral ID Status Reason Start Date Expiration Date V isits Requested Visits Authorized [id number] Closed [facility] CTS 07/23/2021 08/23/2022 1 1 Reason for Visit * CT Scan (Routine) - Closed Specialty Diagnoses / Procedures Referred By Contac t Referred To Contact Radiology Diagnoses Flank pain Procedures CT ABDOMEN PELVIS WO CONTRAST Chloe Hollingsworth NP [address] [facility] [address] [place] [address] Scan [place] [address] [facility] [address] [place] [address] Referral ID Status Reason Start Date Expiration Date V isits Requested Visits Authorized [id number] Closed [facility] CTS 07/23/2021 08/23/2022 1 1 Encounter Details Date Type Department Care Team (Latest Contact Info) Description 07/23/2021 2:11 PM CDT - 07/23/2021 11:59 PM CDT Hospital Encounter [facility] CT Scan [place] [address] [facility] [address] [place] [address] Chloe Hollingsworth, SAI [address] [facility] [address] [place] [address] Discharge Disposition: Home or Self [...] 1 Device 03/29/2019 fluticasone (FLONASE) 50 mcg/spray [place], Suspension Administer 2 Sprays in each nostril [...] [facility] Primary Care - [address] [place] [address] Annalisa Christopher MD [address] [place] [address] [place] [address] documented as of this encounter Procedures [...] colon without mesenteric inflammatory process. DICTATION LOCATION: [address] Chloe Hollingsworth NP CT ORDERABLES documented in this encounter Visit Diagnoses Diagnosis Flank pain Abdominal pain, unspecified site documented in this encounter Care Teams Registered Public Surveyor Relationship Specialty Start Date End Date Annalisa Christopher MD [address] [place] [address] PCP - General 07/07/08 documented as of this encounter
--- OUTSIDE RECORDS SUMMARY | 2024-10-06 18:45 | XMS_ITS | Encounter Summary ---
Author Organization [facility] Address [address] [place] [address] Care Team Providers Care Social Services Designee Name Role Phone Annalisa Christopher MD Primary Care Provider [phone] Reason for Visit * Reason Comments Med Refill Encounter Details Date Type Department Care Team (Late st Contact Info) Description 08/02/2024 Refill [facility] Primary Care - [address] [place] [address] Annalisa Christopher MD [address] [place] [address] [address] [place] [address] Mild intermittent asthma without complication [...] Sofy Murray LPN - 08/02/2024 7:23 AM DISTRIBUTION TECHNICIAN GRIFFIN: 07/18/2024 FOV: 04/25/2025 RIBUTION TECHNICIAN documented in this encounter Plan of Treatment Upcoming Encounters Date Type Department Care Team (Late st Contact Info) Description 04/25/2025 8:20 AM CDT Office Visit [facility] [address] [place] [address] Annalisa Christopher MD [address] [place] [address] documented as of this encounter Visit Diagnoses Diagnosis Mild intermittent asthma without complication Unspecified asthma documented in this encounter Care Teams Social Services Designee Relationship Specialty Start Date End Date Annalisa Christopher MD [address] [place] [address] PCP - General 07/07/08 documented as of this encounter
--- OUTSIDE RECORDS SUMMARY | 2024-10-06 18:45 | XMS_ITS | Encounter Summary ---
Author Organization [facility] Address [address] [place] [address] Care Team Providers Care Cold Roll Inspector Name Role Phone Annalisa Christopher MD Primary Care Provider [phone] Encounter Details Date Type Department Care Team (Late st Contact Info) Description 07/23/2021 Orders Only [address] [place] [address] Annalisa Christopher MD [address] [place] [address] [address] [place] [address] Nephrolithiasis (Primary Dx) Social History [...] Description 04/25/2025 8:20 AM CDT Office Visit [address] [place] [address] Annalisa Christopher MD [address] [place] [address] documented as of this encounter Visit Diagnoses Diagnosis Nephrolithiasis- Primary Calculus of kidney documented in this encounter Care Teams Cold Roll Inspector Relationship Specialty Start Date End Date Annalisa Christopher MD [address] [place] [address] PCP - General 07/07/08 documented as of this encounter
--- OUTSIDE RECORDS SUMMARY | 2024-10-06 18:45 | XMS_ITS | Encounter Summary ---
Author Organization [facility] Address [address] [place] [address] Care Team Providers Care Director Call Name Role Phone Annalisa Christopher MD Primary Care Provider [phone] Encounter Details Date Type Department Care Team [...] [facility] Primary Care - [facility] [address] [place] [address] [place] [address] Annalisa Christopher MD [address] [place] [address] [address] [place] [address] documented as of this encounter Visit Diagnoses Not on filedocumented in this encounter Care Teams Director Call Relationship Specialty Start Date End Date Annalisa Christopher MD [address] [place] [address] [address] [place] [address] PCP - General 07/07/08 documented as of this encounter
--- OUTSIDE RECORDS SUMMARY | 2024-10-06 18:45 | XMS_ITS | Encounter Summary ---
Author Organization [facility] Address [address] [place] [address] Care Team Providers Care Clin Application Specialist Name Role Phone Annalisa Christopher MD Primary Care Provider [phone] Encounter Details Date Type Department Care Team [...] Visit [facility] Primary Care - [facility] [address] [place] [address] [place] [address] Annalisa Christopher MD [address] [place] [address] [place] [address] documented as of this encounter Visit Diagnoses Not on filedocumented in this encounter Care Teams Clin Application Specialist Relationship Specialty Start Date End Date Annalisa Christopher MD [address] [place] [address] [address] [place] [address] PCP - General 07/07/08 documented as of this encounter
--- OUTSIDE RECORDS SUMMARY | 2024-10-06 18:45 | XMS_ITS | Encounter Summary ---
Author Organization [facility] Address [address] [place] [address] Care Team Providers Care Mold Puller Name Role Phone Annalisa Christopher MD Primary Care Provider [phone] Encounter Details Date Type Department Care Team (Late st Contact Info) Description 04/28/2024 Orders Only [facility] [address] [place] [address] [address] [place] [address] Pearl Junior NP [address] [facility] [facility] [place] [address] Elevated LFTs (Primary Dx); Obesity [...] Office Visit [facility] [address] [place] [address] Annalisa Christopher MD [address] [place] [address] [address] [place] [address] documented as of this encounter [...] within a diagnostic category. Test Performed at: [facility] [address] [place] [address] ??[phone] Albin Lewis MD Urine URINE SPECIMEN OBTAINED BY CLEAN CATCH PROCEDURE / Unknown 07/05/2024 7:31 AM CDT 07/05/2024 7:31 AM CDT Pearl Junior MANAGER PRODUCT MANAGEMENT URINE ORDERABLES [facility] [phone] [facility] [address] [place] [address] * (ABNORMAL) COMPREHENSIVE METABOLIC PANEL (07/05/2024 7:28 [...] [facility] Comment: Test Performed at: [facility] [address] [facility] [place] ??[id number] Albin Lewis MD Blood 07/05/2024 7:28 AM CDT 07/05/2024 7:29 AM CDT Pearl Junior NP CHEMISTRY ORDERABLE [facility] [phone] [facility] [address] [place] [address] documented in this encounter Visit Diagnoses Diagnosis Elevated LFTs- Primary Other abnormal blood chemistry Obesity (BMI 30.0-34.9) Obesity, unspecified Mixed hyperlipidemia documented in this encounter Care Teams Mold Puller Relationship Specialty Start Date End Date Annalisa Christopher MD [address] [place] [address] PCP - General 07/07/08 documented as of this encounter
--- OUTSIDE RECORDS SUMMARY | 2024-10-06 18:45 | XMS_ITS | Encounter Summary ---
Author Organization [facility] Address [address] [place] [address] Care Team Providers Care Blue Leather Setter Name Role Phone Annalisa Christopher MD Primary Care Provider [phone] Reason for Visit * Reason Comments Clinical Consult Before Scheduling Encounter Details Date Type Department Care Team (Late st Contact Info) Description 09/17/2024 Telephone [facility] Primary Care - [address] [place] [address] Annalisa Christopher MD [address] [place] [address] [address] [place] [address] Clinical Consult Before Scheduling Social [...] Sofy Murray LPN - 09/17/2024 9:22 AM CANE FLUME WATCHER 09/17/2024 9:23 AM Pt has no appetite [...] pt verbalized an und erstanding. Sofy HAGAN FLUME WATCHER * Telephone Encounter - Samson Apple - 09/17/2024 9:14 AM CST Copied from [facility] #[id number]. Topic: Symptomatic Care >> Sep 17, 2024 9:05 AM Samson Weaver wrote: Caller has new symptoms and is seeking care. Age Range/Symptom: Adult: 18+ - Diarrhea Does patient have any of the following other urgent symptoms? No urgent symptoms requiring warm call transfer Caller Name: Fabiana Pryor Callback Number: [phone] Call Notes: The patient advised that she [...] is not clinically appropriate, please contact patient. FLUME WATCHER documented in this encounter Plan of Treatment Upcoming Encounters Date Type Department Care Team (Late st Contact Info) Description 04/25/2025 8:20 AM CDT Office Visit [facility] Care - [facility] [address] [place] [address] [place] [address] Annalisa Christopher MD [address] [place] [address] [address] [place] [address] documented as of this encounter Visit Diagnoses Not on filedocumented in this encounter Care Teams Blue Leather Setter Relationship Specialty Start Date End Date Annalisa Christopher MD [address] [place] [address] [address] [place] [address] PCP - General 07/07/08 documented as of this encounter
--- OUTSIDE RECORDS SUMMARY | 2024-10-06 18:45 | XMS_ITS | Encounter Summary ---
Author Organization [facility] Address [address] [place] [address] Care Team Providers Care Otr Hazmat Company Driver Name Role Phone Annalisa Christopher MD Primary Care Provider [phone] Reason for Visit * Reason Comments Medication Refill Encounter Details Date Type Department Care Team (Late st Contact Info) Description 09/10/2020 Refill [facility] [address] [place] [address] [place] [address] Annalisa Christopher MD [address] [place] [address] [address] [place] [address] Mild intermittent asthma without complication [...] 04/25/2025 8:20 AM CDT Office Visit [facility] [address] [place] [address] [address] [place] [address] Annalisa Christopher MD [address] [place] [address] [address] [place] [address] documented as of this encounter Visit Diagnoses Diagnosis Mild intermittent asthma without complication Unspecified asthma documented in this encounter Additional Health Concerns Assessment Noted Time PHQ-9 Depression Total Score: 1 06/06/20 16 9:00 AM CDT documented as of this encounter Care Teams Otr [employer] Driver Relationship Specialty Start Date End Date Annalisa Christopher MD [address] [place] [address] PCP - General 07/07/08 documented as of this encounter
--- OUTSIDE RECORDS SUMMARY | 2024-10-06 18:45 | XMS_ITS | Encounter Summary ---
Author Organization [facility] Address [address] [place] [address] Care Team Providers Care Room Cooler Installer Name Role Phone Annalisa Christopher MD Primary Care Provider [phone] Reason for Visit * Reason Comments Med Refill Encounter Details Date Type Department Care Team (Late st Contact Info) Description 08/05/[address] [place] [address] Annalisa Christopher MD [address] [place] [address] [address] [place] [address] PTSD (post-traumatic stress disorder) Social [...] Visit [facility] [address] [place] [address] [address] [place] [address] Annalisa Christopher MD [address] [place] [address] [address] [place] [address] documented as of this encounter Visit Diagnoses Diagnosis PTSD (post-traumatic stress disorder) Posttraumatic stress disorder documented in this encounter Care Teams Room Cooler Installer Relationship Specialty Start Date End Date Annalisa Christopher MD [address] [place] [address] PCP - General 07/07/08 documented as of this encounter
--- OUTSIDE RECORDS SUMMARY | 2024-10-06 18:45 | XMS_ITS | Encounter Summary ---
Author Organization [facility] Address [address] [place] [address] Care Team Providers Care Bridge Operator Name Role Phone Annalisa Christopher MD Primary Care Provider [phone] Reason for Visit * Reason Onset Date Comments Medication Refill 05/01/2024 Encounter Details Date Type Department Care Team (Late st Contact Info) Description 05/01/[address] [place] [address] Annalisa Christopher MD [address] [place] [address] [address] [place] [address] Benign essential tremor Social History [...] Description 04/25/2025 8:20 AM CDT Office Visit [address] [place] [address] Annalisa Christopher MD [address] [place] [address] [address] [place] [address] documented as of this encounter Visit Diagnoses Diagnosis Benign essential tremor Essential and other specified forms of tremor documented in this encounter Care Teams Bridge Operator Relationship Specialty Start Date End Date Annalisa Christopher MD [address] [place] [address] PCP - General 07/07/08 documented as of this encounter
--- OUTSIDE RECORDS SUMMARY | 2024-10-06 18:45 | XMS_ITS | Encounter Summary ---
Author Organization [facility] Address [address] [place] [address] Care Team Providers Care Field Merchandiser Name Role Phone Annalisa Christopher MD Primary Care Provider [phone] Reason for Visit * Reason Comments Med Refill Encounter Details Date Type Department Care Team (Late st Contact Info) Description 12/05/[address] [place] [address] Elkin Alvarez MD NO ADDRESS ON [...] CDT Office Visit [facility] [address] [place] [address] [address] [place] [address] Annalisa Christopher MD [address] [place] [address] [address] [place] [address] documented as of this encounter Visit Diagnoses Diagnosis Mild intermittent asthma without complication Unspecified asthma documented in this encounter Care Teams Field Merchandiser Relationship Specialty Start Date End Date Annalisa Christopher MD [address] [facility] [address] [place] [address] PCP - General 07/07/08 documented as of this encounter
--- OUTSIDE RECORDS SUMMARY | 2024-10-06 18:45 | XMS_ITS | Encounter Summary ---
Author Organization [facility] Address [address] [place] [address] Care Team Providers Care Chief Wharfinger Name Role Phone Annalisa Christopher MD Primary Care Provider [phone] Reason for Visit * Reason Onset Date Comments Upper Respiratory Symptoms 02/15/2022 Encounter Details Date Type Department Care Team (Late st Contact Info) Description 02/15/2022 Telephone [facility] Primary Care - [address] [place] [address] Annalisa Christopher MD [address] [place] [address] [place] [address] Upper Respiratory Symptoms Social History Tobacco [...] [facility] Primary Care - [place] [address] [facility] [address] [place] [address] Annalisa Christopher MD [address] [place] [address] [place] [address] documented as of this encounter Visit Diagnoses Not on filedocumented in this encounter Care Teams Chief Wharfinger Relationship Specialty Start Date End Date Annalisa Christopher MD [address] [facility] [address] [place] [address] PCP - General 07/07/08 documented as of this encounter
--- OUTSIDE RECORDS SUMMARY | 2024-10-06 18:45 | XMS_ITS | Encounter Summary ---
Author Organization [facility] Address [address] [facility] Attn: [place] [address] Care Team Providers Care Voice Instructor Name Role Phone Annalisa Christopher MD Primary Care Provider [phone] Encounter Details Date Type Department Care Team [...] Description 04/25/2025 8:20 AM CDT Office Visit [facility] Care - [address] [place] [address] Annalisa Christopher MD [address] [place] [address] [address] [place] [address] documented as of this encounter Visit Diagnoses Not on filedocumented in this encounter Care Teams Voice Instructor Relationship Specialty Start Date End Date Annalisa Christopher MD [address] [facility] [address] [place] [address] PCP - General 07/07/08 documented as of this encounter
--- OUTSIDE RECORDS SUMMARY | 2024-10-06 18:45 | XMS_ITS | Encounter Summary ---
Author Organization [facility] Address [address] [place] [address] Care Team Providers Care Core Loader Name Role Phone Annalisa Christopher MD Primary Care Provider [phone] Reason for Visit * Reason Comments Med Refill Encounter Details Date Type Department Care Team (Late st Contact Info) Description 2022 Refill [facility] [address] [place] [address] [place] [address] Annalisa Chrsitopher MD [address] [place] [address] [address] [place] [address] Migraine without status migrainosus, not [...] Description 04/25/2025 8:20 AM CDT Office Visit [facility] [address] [place] [address] [address] [place] [address] Annalisa Christopher MD [address] [place] [address] [address] [place] [address] documented as of this encounter Visit Diagnoses Diagnosis Migraine without status migrainosus, not intractable, unspecified migraine type documented in this encounter Care Teams Core Loader Relationship Specialty Start Date End Date Annalisa Christopher MD [address] [facility] [address] [place] [address] PCP - General 07/07/08 documented as of this encounter
--- OUTSIDE RECORDS SUMMARY | 2024-10-06 18:45 | XMS_ITS | Encounter Summary ---
Author Organization [facility] Address [address] [place] [address] Care Team Providers Care Administrative Support Assistant Name Role Phone Annalisa Christopher MD Primary Care Provider [phone] Reason for Visit * Reason Comments Medication Refill Encounter Details Date Type Department Care Team (Late Contact Info) Description 04/08/[address] [place] [address] Elkin Alvarez MD NO ADDRESS ON [...] Description 04/25/2025 8:20 AM CDT Office Visit [facility] [address] [place] [address] [address] [place] [address] Annalisa Christopher MD [address] [place] [address] [address] [place] [address] documented as of this encounter Visit Diagnoses Diagnosis Mild intermittent asthma without complication Unspecified asthma documented in this encounter Care Teams Administrative Support Assistant Relationship Specialty Start Date End Date Annalisa Christopher MD [address] [facility] [address] [place] [address] PCP - General 07/07/08 documented as of this encounter
--- OUTSIDE RECORDS SUMMARY | 2024-10-06 18:45 | XMS_ITS | Encounter Summary ---
Author Organization [facility] Address [address] [place] [address] Care Team Providers Care Continuous Yarn Dyeing Machine Operator Name Role Phone Annalisa Christopher MD Primary Care Provider [phone] Reason for Visit * Reason Comments Medication Refill Encounter Details Date Type Department Care Team (Late st Contact Info) Description 04/08/2022 Refill [facility] [address] [place] [address] [place] [address] Annalisa Christopher MD [address] [place] [address] [address] [place] [address] Migraine without status migrainosus, not [...] Description 04/25/2025 8:20 AM CDT Office Visit [facility] [address] [place] [address] [address] [place] [address] Annalisa Christopher MD [address] [place] [address] [address] [place] [address] documented as of this encounter Visit Diagnoses Diagnosis Migraine without status migrainosus, not intractable, unspecified migraine type documented in this encounter Care Teams Continuous Yarn Dyeing Machine Operator Relationship Specialty Start Date End Date Annalisa Christopher MD [address] [facility] [address] [place] [address] PCP - General 07/07/08 documented as of this encounter
--- OUTSIDE RECORDS SUMMARY | 2024-10-06 18:45 | XMS_ITS | Encounter Summary ---
Author Organization [facility] Address [address] [place] [address] Care Team Providers Care Supervisor Water Treatment Plant Name Role Phone Annalisa Christopher MD Primary Care Provider [phone] Encounter Details Date Type Department Care Team (Late st Contact Info) Description 02/24/2022 Orders Only [address] [place] [address] Provider, Abstract NO ADDRESS ON FILE [...] 04/25/2025 8:20 AM CDT Office Visit [address] [place] [address] Annalisa Christopher MD [address] [place] [address] [address] [place] [address] documented as of this encounter Procedures Procedure Name Priority Date/Time Associated Diagnosis Comments MAMMO SCREENING BILAT Routine 02/22/2022 documented in this encounter Results * MAMMO SCREENING BILAT (02/22/2022) Anatomical Region Laterality Modality Breast Bilateral Other Abstract Provider MAMMO ORDERABLES documented in this encounter Visit Diagnoses Not on filedocumented in this encounter Care Teams Supervisor Water Treatment Plant Relationship Specialty Start Date End Date Annalisa Christopher MD [address] [place] [address] PCP - General 07/07/08 documented as of this encounter
--- OUTSIDE RECORDS SUMMARY | 2024-10-06 18:45 | XMS_ITS | Encounter Summary ---
Author Organization [facility] Address [address] [place] [address] Care Team Providers Care Supervisor Irrigation Name Role Phone Annalisa Christopher MD Primary Care Provider [phone] Reason for Visit * Reason Comments Establish Care Encounter Details Date Type Department Care Team (Latest Contact Info) Description 02/17/2021 9:30 AM CDT Office Visit [facility] [place] [facility] [address] [place] [address] Heide Shannon MD [address] [place] [address] Screening for colon cancer (Primary [...] AUGMENTATION 2006 [facility] ??? [place] DELIVERY ONLY 2003 ??? [place] DELIVERY ONLY 08/31/2011 SECTION performed by Douglas Jeffrey MD at [facility] L&D ??? [place] DILATION/CURETTAGE,DIAGNOSTIC 09/08/2010 DILATATION AND CURETTAGE SUCTION performed by DOUGLAS JEFFREY at [facility] OR MAIN Allergies Allergen Reactions ??? Sulfa [...] Rfl: 0 ??? fluticasone (FLONASE) 50 mcg/spray [place], Suspension, Administer 2 Sprays in each nostril [...] ??? Hypertension Father ??? Heart Disease Father [place] 60's ??? Stroke Father ??? Diabetes Mother [...] level: Not on file Occupational History Employer: [employer] Tobacco Use ??? Smoking status: Former [...] Gatherings with Friends and Family: ??? Attends Synagogue Services: ??? Active Member of Clubs or [...] 04/25/2025 8:20 AM CDT Office Visit [facility] Care - [facility] [address] [place] [address] [address] [place] [address] Annalisa Christopher MD [address] [place] [address] documented as of this encounter Visit Diagnoses Diagnosis Screening for colon cancer- Primary Special screening for malignant neoplasms, colon documented in this encounter Care Teams Supervisor Irrigation Relationship Specialty Start Date End Date Annalisa Christopher MD [address] [place] [address] PCP - General 07/07/08 documented as of this encounter
--- OUTSIDE RECORDS SUMMARY | 2024-10-06 18:45 | XMS_ITS | Encounter Summary ---
Author Organization [facility] Address [address] [place] [address] Care Team Providers Care Instrument Repair Supervisor Name Role Phone Annalisa Christopher MD Primary Care Provider [phone] Encounter Details Date Type Department Care Team [...] [facility] Primary Care - [facility] [address] [place] [address] [place] [address] Annalisa Christopher MD [address] [place] [address] [place] [address] documented as of this encounter Visit Diagnoses Not on filedocumented in this encounter Care Teams Instrument Repair Supervisor Relationship Specialty Start Date End Date Annalisa Christopher MD [address] [place] [address] [address] [place] [address] PCP - General 07/07/08 documented as of this encounter
--- OUTSIDE RECORDS SUMMARY | 2024-10-06 18:46 | XMS_ITS | Encounter Summary ---
Author Organization [facility] Address [address] [place] [address] Care Team Providers Care Safety Leader Name Role Phone Annalisa Christopher MD Primary Care Provider [phone] Reason for Visit * Reason Comments Medication Refill Encounter Details Date Type Department Care Team (Late st Contact Info) Description 11/18/[address] [place] [address] Annalisa Christopher MD [address] [place] [address] [address] [place] [address] Social History Tobacco Use Types [...] 04/25/2025 8:20 AM CDT Office Visit [facility] [address] [place] [address] [address] [place] [address] Annalisa Christopher MD [address] [place] [address] [address] [place] [address] documented as of this encounter Visit Diagnoses Not on filedocumented in this encounter Care Teams Safety Leader Relationship Specialty Start Date End Date Annalisa Christopher MD [address] [place] [address] PCP - General 07/07/08 documented as of this encounter
--- OUTSIDE RECORDS SUMMARY | 2024-10-06 18:46 | XMS_ITS | Encounter Summary ---
Author Organization [facility] Address [address] [place] [address] Care Team Providers Care Oracle Software Engineer Name Role Phone Annalisa Christopher MD Primary Care Provider [phone] Reason for Referral * Outpatient Services (Routine) - Closed Specialty Diagnoses / Procedures Referred By Contac t Referred To Contact CT Scan Diagnoses Allergic rhinitis due to pollen, unspecified rhinitis seasonality Sinus pain Bilateral acute serous otitis media, recurrence not specified Procedures CT SINUS FACIAL BONES WO CONTRAST Mery Villanueva APRN-BC [address] [place] [address] Referral ID Status Reason Start Date Expiration Date V isits Requested Visits Authorized [id number] Closed [facility] CTS 01/16/2017 03/02/2017 1 1 Reason for Visit * Reason Comments Wheezing Sore Throat Encounter Details Date Type Department Care Team (Late st Contact Info) Description 01/13/2017 9:20 AM CDT Office Visit [facility] Primary Care - [address] [place] [address] Mery Villanueva APRN-BC [address] [place] [address] Allergic rhinitis due to pollen, [...] 01/13/2017 9:41 AM CDT Mery Villanueva APRN, [facility] [place] [address] SUBJECTIVE: Chief Complaint Patient presents with ??? [...] mg tablet ??? azelastine-fluticasone (DYMISTA) 137-50 mcg/spray [place], Non-Aerosol Plan to follow up in Routine [...] [facility] - [facility] [address] [facility] [address] [place] [address] Annalisa Christopher MD [address] [facility] [address] [place] [address] documented as of this encounter Results * CT SINUS FACIAL BONES WO CONTRAST (01/20/2017 2:00 PM CDT) Anatomical Region Laterality Modality Head Computed Tomogra phy 01/20/2017 2:04 PM CDT Impressions 01/20/2017 4:07 PM CDT IMPRESSION: Unremarkable sinus CT DICTATION LOCATION: Location [address] [place] [address] Narrative 01/20/2017 4:[address] SINUS [...] IMPRESSION: Unremarkable sinus CT DICTATION LOCATION: Location [address] [place] [address] Mery Jyoti Kay LIVESTOCK RANCH HAND-BC CT ORDERABLES documented in this encounter Visit [...] documented as of this encounter Care Teams Oracle Software Engineer Relationship Specialty Start Date End Date Annalisa Christopher MD [address] [place] [address] PCP - General 07/07/08 documented as of this encounter
--- OUTSIDE RECORDS SUMMARY | 2024-10-06 18:46 | XMS_ITS | Encounter Summary ---
Author Organization [facility] Address [address] [place] [address] Care Team Providers Care Director Of Agronomy Name Role Phone Annalisa Christopher MD Primary Care Provider [phone] Reason for Visit * Reason Comments Flank Pain Urinary Frequency Encounter Details Date Type Department Care Team (Latest Contact Info) Description 03/10/2015 10:30 AM CDT Clinical Support [facility] - [address] [address] Nurse, Primary Care [place] Frequency of urination (Primary Dx); Flank pain [...] Description 04/25/2025 8:20 AM CDT Office Visit [facility] Primary Care - [facility] [address] [facility] [address] [place] [address] Annalisa Christopher MD [address] [facility] [address] [place] [address] documented as of this encounter [...] METHOD AEROBIC CULTURE 03/11/2015 10:23 AM CDT [facility] Urine URINE SPECIMEN OBTAINED BY CLEAN CATCH PROCEDURE / Unknown Collection / Unknown 03/10/2015 10:59 AM CDT 03/10/2015 3:22 PM CDT Mery Villanueva FUSING MACHINE FEEDER- MICROBIOLOGY - G ENERAL ORDERABLES [facility] CLIA# [id number] [address] [facility] [place] [place] [id number] * (ABNORMAL) POC URINALYSIS DIPSTICK NON AUTOMATED [...] (specimen) 03/10/2015 10:59 AM CDT Mery Villanueva FUSING MACHINE FEEDER- POINT OF CARE TE [facility] documented in this encounter Visit Diagnoses Diagnosis Frequency of urination- Primary Urinary frequency Flank pain Abdominal pain, unspecified site documented in this encounter Care Teams Director Of Agronomy Relationship Specialty Start Date End Date Annalisa Christopher MD [address] [place] [address] PCP - General 07/07/08 documented as of this encounter
--- OUTSIDE RECORDS SUMMARY | 2024-10-06 18:46 | XMS_ITS | Encounter Summary ---
Author Organization [facility] Address [address] [place] [address] Care Team Providers Care Supervisor Fine Grading Name Role Phone Annalisa Christopher MD Primary Care Provider [phone] Encounter Details Date Type Department Care Team (Late st Contact Info) Description 06/06/2016 Abstract [facility] - [address] [place] [address] Annalisa Christopher MD [address] [place] [address] [address] [place] [address] Social History Tobacco Use Types [...] Description 04/25/2025 8:20 AM CDT Office Visit [facility] [address] [place] [address] [address] [place] [address] Annalisa Christopher MD [address] [place] [address] [address] [place] [address] documented as of this encounter Visit Diagnoses Not on filedocumented in this encounter Additional Health Concerns Assessment Noted Time PHQ-9 Depression Total Score: 1 06/06/20 16 9:00 AM CDT documented as of this encounter Care Teams Supervisor Fine Grading Relationship Specialty Start Date End Date Annalisa Christopher MD [address] [place] [address] PCP - General 07/07/08 documented as of this encounter
--- OUTSIDE RECORDS SUMMARY | 2024-10-06 18:46 | XMS_ITS | Encounter Summary ---
Author Organization [facility] Address [address] [place] [address] Care Team Providers Care Child Care Supervisor Name Role Phone Annalisa Christopher MD Primary Care Provider [phone] Reason for Visit * Reason Comments Asthma Encounter Details Date Type Department Care Team (Late st Contact Info) Description 03/29/2019 10:15 AM CDT Office Visit [facility] Primary Care - [address] [place] [address] Annalisa Christopher MD [address] [place] [address] [address] [place] [address] Mild intermittent asthma without complication [...] y.o. female presenting with Asthma flare up [place] like has had heart palpitations last couple [...] Visit [facility] Primary Care - [address] [place] [phone] Annalisa Christopher MD [address] [place] [address] [place] [address] documented as of this encounter Visit Diagnoses Diagnosis Mild intermittent asthma without complication Unspecified asthma documented in this encounter Additional Health Concerns Assessment Noted Time PHQ-9 Depression Total Score: 1 06/06/20 16 9:00 AM CDT documented as of this encounter Care Teams Child Care Supervisor Relationship Specialty Start Date End Date Annalisa Christopher MD [address] [place] [address] [address] [place] [phone] PCP - General 07/07/08 documented as of this encounter
--- OUTSIDE RECORDS SUMMARY | 2024-10-06 18:46 | XMS_ITS | Encounter Summary ---
Author Organization [facility] Address [address] [place] [address] Care Team Providers Care Petroleum Engineer Name Role Phone Annalisa Christopher MD Primary Care Provider [phone] Reason for Referral * Outpatient Services (Routine) - Closed Specialty Diagnoses / Procedures Referred By Bairon boone Referred To Contact CT Scan Diagnoses Allergic rhinitis due to pollen, unspecified rhinitis seasonality Sinus pain Bilateral acute serous otitis media, recurrence not specified Procedures CT SINUS FACIAL BONES WO CONTRAST Mery Villanueva, JUAN-GINNA [address] [facility] [address] [place] [address] Referral ID Status Reason Start Date Expiration Date V isits Requested Visits Authorized [id number] Closed [facility] CTS 01/16/2017 03/02/2017 1 1 Reason for Visit * Auth/Cert Specialty Diagnoses / Procedures Referred By Bairon boone Referred To Contact Radiology [facility] Scan [facility] [address] [place] [address] Referral ID Status Reason Start Date Expiration Date Visits Re quested Visits Authorized [id number] 1 1 Encounter Details Date Type Department Care Team (Latest Contact Info) Description 01/20/2017 1:35 PM CDT - 01/20/2017 11:59 PM CDT Hospital Encounter [facility] CT Scan [facility] [address] [place] [address] KayMery Gregorio, RESIN MIXER-BC [address] [facility] [address] [place] [address] Discharge Disposition: Home or Self [...] 01/13/2017 05/31/2017 azelastine-fluticaso ne (DYMISTA) 137-50 mcg/spray [place], Non-Aerosol Administer 1 [place] in each nostril 2 times daily. 23 [...] 04/25/2025 8:20 AM CDT Office Visit [facility] - [facility] [address] [place] [address] Annalisa Christopher MD [address] [place] [address] documented as of this encounter [...] sinus CT DICTATION LOCATION: Location 1 - [facility] Narrative 01/20/2017 4:[address] [...] IMPRESSION: Unremarkable sinus CT DICTATION LOCATION: Location [address] [place] [address] Mery Jyoti Kay RESIN MIXER-BC CT ORDERABLES documented in this encounter Visit Diagnoses Diagnosis Allergic rhinitis due to pollen, unspecified rhinitis seasonality Sinus pain Other diseases of nasal cavity and sinuses Bilateral acute serous otitis media, recurrence not specified documented in this encounter Additional Health Concerns Assessment Noted Time PHQ-9 Depression Total Score: 1 06/06/20 16 9:00 AM CDT documented as of this encounter Care Teams Petroleum Engineer Relationship Specialty Start Date End Date Annalisa Christopher MD [address] [place] [address] PCP - General 07/07/08 documented as of this encounter
--- OUTSIDE RECORDS SUMMARY | 2024-10-06 18:46 | XMS_ITS | Encounter Summary ---
Author Organization [facility] Address [address] [place] [address] Care Team Providers Care Supervisor Fish Hatchery Name Role Phone Annalisa Christopher MD Primary Care Provider [phone] Reason for Visit * Reason Onset Date Comments Sinus Infection 04/21/2015 Encounter Details Date Type Department Care Team (Late st Contact Info) Description 04/21/2015 Telephone [facility] Primary Care - [address] [place] [address] Annalisa Christopher MD [address] [place] [address] [address] [place] [address] Sinus Infection Social History Tobacco [...] Visit [facility] Primary Care - [facility] [address] [facility] [address] [place] [address] Annalisa Christopher MD [address] [facility] [address] [place] [address] documented as of this encounter Visit Diagnoses Not on filedocumented in this encounter Care Teams Supervisor Fish Hatchery Relationship Specialty Start Date End Date Annalisa Christopher MD [address] [facility] [address] [place] [address] PCP - General 07/07/08 documented as of this encounter
--- OUTSIDE RECORDS SUMMARY | 2024-10-06 18:46 | XMS_ITS | Encounter Summary ---
Author Organization [facility] Address [address] [place] [address] Care Team Providers Care Dirt Bike Mechanic Name Role Phone Annalisa Christopher MD Primary Care Provider [phone] Encounter Details Date Type Department Care Team (Late Contact Info) Description 10/31/2018 Orders Only [facility] Admitting [address] [place] [address] Annalisa Christopher MD [address] [place] [address] [place] [address] Social History Tobacco Use Types Packs/Day [...] Visit [facility] Primary Care - [facility] [address] [facility] [address] [place] [address] Annalisa Christopher MD [address] [place] [address] [address] [place] [address] documented as of this encounter Visit Diagnoses Not on filedocumented in this encounter Additional Health Concerns Assessment Noted Time PHQ-9 Depression Total Score: 1 06/06/20 16 9:00 AM CDT documented as of this encounter Care Teams Dirt Bike Mechanic Relationship Specialty Start Date End Date Annalisa Christopher MD [address] [place] [address] PCP - General 07/07/08 documented as of this encounter
--- OUTSIDE RECORDS SUMMARY | 2024-10-06 18:46 | XMS_ITS | Encounter Summary ---
Author Organization [facility] Address [address] [place] [address] Care Team Providers Care Equipment Technician Name Role Phone Annalisa Christopher MD Primary Care Provider [phone] Reason for Visit * Reason Onset Date Comments Urinary Frequency 03/10/2015 Encounter Details Date Type Department Care Team (Late st Contact Info) Description 03/10/2015 Telephone [facility] Primary Care - [address] [place] [address] Annalisa Christopher MD [address] [place] [address] [address] [place] [address] Urinary Frequency Social History Tobacco [...] * Telephone Encounter - mEely Cuadra - 03/10/2015 9:59 AM CDT Spoke to pt and put on ma schedule * Telephone Encounter - Mery Villanueva APRN-BC - 03/10/2015 9:57 AM CDT Recommend urine culture, ordered Leave urine specimen here * Telephone Encounter - Emely Cuadra - 03/10/2015 9:52 AM CDT Read My [employer] message for lab results to pt Pt is having lower rt flank pain, frequent and cloudy urine Asking for rx? Repeat u/a? documented in this encounter Plan of Treatment Upcoming Encounters Date Type Department Care Team (Late st Contact Info) Description 04/25/2025 8:20 AM CDT Office Visit [facility] Primary Care - [facility] [address] [facility] [address] [place] [address] Annalisa Christopher MD [address] [facility] [address] [place] [address] documented as of this encounter Visit Diagnoses Diagnosis Urinary frequency- Primary Cloudy urine Other nonspecific finding on examination of urine documented in this encounter Care Teams Equipment Technician Relationship Specialty Start Date End Date Annalisa Christopher MD [address] [facility] [address] [place] [address] PCP - General 07/07/08 documented as of this encounter
--- OUTSIDE RECORDS SUMMARY | 2024-10-06 18:46 | XMS_ITS | Encounter Summary ---
Author Organization [facility] Address [address] [place] [address] Care Team Providers Care Live In Housekeeper Nanny Name Role Phone Annalisa Christopher MD Primary Care Provider [phone] Reason for Visit * Reason Onset Date Comments Wants Appointment 03/29/2019 Encounter Details Date Type Department Care Team (Late st Contact Info) Description 03/29/2019 Telephone [facility] Primary Care - [address] [place] [address] Annalisa Christopher MD [address] [place] [address] [address] [place] [address] Wants Appointment Social History Tobacco [...] 03/29/2019 8:44 AM CDT Asthma flare up [place] like has had heart palpitations last couple of days. Is in center of chest No pain, x 2days Using inhalers documented in this encounter Plan of Treatment Upcoming Encounters Date Type Department Care Team (Late st Contact Info) Description 04/25/2025 8:20 AM CDT Office Visit [facility] Primary Care - [facility] [address] [place] [address] Annalisa Christopher MD [address] [facility] [address] [place] [address] documented as of this encounter Visit Diagnoses Not on filedocumented in this encounter Additional Health Concerns Assessment Noted Time PHQ-9 Depression Total Score: 1 06/06/20 16 9:00 AM CDT documented as of this encounter Care Teams Live In Housekeeper Nanny Relationship Specialty Start Date End Date Annalisa Christopher MD [address] [facility] [address] [place] [address] PCP - General 07/07/08 documented as of this encounter
--- OUTSIDE RECORDS SUMMARY | 2024-10-06 18:46 | XMS_ITS | Encounter Summary ---
Author Organization [facility] Address [address] [place] [address] Care Team Providers Care Conflict Resolution Professional Name Role Phone Annalisa Christopher MD Primary Care Provider [phone] Reason for Visit * Outpatient Services (Routine) - Closed Specialty Diagnoses / Procedures Referred By Contac t Referred To Contact Radiology Diagnoses / Procedures XR HEAD Annalisa Christopher MD [address] [place] [address] [facility] Radiology [place] [address] [facility] [facility] [address] [place] [address] Referral ID Status Reason Start Date Expiration Date Visits Re quested Visits Authorized [id number] Closed 12/17/2015 01/16/2017 1 1 Encounter Details Date Type Department Care Team (Latest Contact Info) Description 12/17/2015 12:25 PM CDT - 12/17/2015 11:59 PM CDT Hospital Encounter [facility] [place] [address] [facility] [address] [place] [address] Annalisa Christopher MD [address] [place] [address] Discharge Disposition: Home or Self [...] Medrol elizabeth. 1 Package 0 12/17/2015 06/06/2016 ivgdacfc-kpojqezrw-aiv rocortisone (CORTISPORIN) 3.5-10,000-10 mg-unit-mg/mL suspensionIndications: Acute bacterial [...] 1 05/01/2015 01/02/2017 fluticasone (FLONASE) 50 mcg/spray [place], Suspension SPRAY TWICE IN EACH NOSTRIL EVERY DAY. 16 Gram 1 01/12/2015 01/13/2017 diazepam (VALIUM) 5 mg Oral tablet Take 1 Tab by mouth 1 time daily as needed for Anxiety. 30 Tab 0 12/09/2011 05/27/2016 documented as of this encounter Plan of Treatment Upcoming Encounters Date Type Department Care Team (Late st Contact Info) Description 04/25/2025 8:20 AM CDT Office Visit [facility] - [address] [place] [address] Annalisa Christopher MD [address] [place] [address] documented as of this encounter [...] sinusitis documented in this encounter Care Teams Conflict Resolution Professional Relationship Specialty Start Date End Date Annalisa Christopher MD [address] [place] [address] PCP - General 07/07/08 documented as of this encounter
--- OUTSIDE RECORDS SUMMARY | 2024-10-06 18:46 | XMS_ITS | Encounter Summary ---
Author Organization [facility] Address [address] [place] [address] Care Team Providers Care Commercial Loan Manager Name Role Phone Annalisa Christopher MD Primary Care Provider [phone] Reason for Visit * Reason Onset Date Comments Upper Respiratory Symptoms 05/05/2015 Encounter Details Date Type Department Care Team (Late st Contact Info) Description 05/05/2015 Telephone [facility] Primary Care - [address] [place] [address] Annalisa Christopher MD [address] [place] [address] [address] [place] [address] Upper Respiratory Symptoms Social History [...] [facility] - [facility] [address] [facility] [address] [place] [address] Annalisa Christopher MD [address] [facility] [address] [place] [address] documented as of this encounter Visit Diagnoses Not on filedocumented in this encounter Care Teams Commercial Loan Manager Relationship Specialty Start Date End Date Annalisa Christopher MD [address] [facility] [address] [place] [address] PCP - General 07/07/08 documented as of this encounter
--- OUTSIDE RECORDS SUMMARY | 2024-10-06 18:46 | XMS_ITS | Encounter Summary ---
Author Organization [facility] Address [address] [place] [address] Care Team Providers Care Brush Painter Name Role Phone Annalisa Christopher MD Primary Care Provider [phone] Reason for Visit * Reason Onset Date Comments Erroneous encounter-disregard 03/10/2015 Encounter Details Date Type Department Care Team (Late Contact Info) Description 03/10/[address] [facility] Primary Care - [address] [place] [address] Annalisa Christopher MD [address] [place] [address] [place] [address] Erroneous encounter-disregard Social History Tobacco Use [...] 8:20 AM CDT Office Visit [facility] Primary Care - [facility] [address] [place] [address] Annalisa Christopher MD [address] [place] [address] documented as of this encounter Visit Diagnoses Not on filedocumented in this encounter Care Teams Brush Painter Relationship Specialty Start Date End Date Annalisa Christopher MD [address] [place] [address] PCP - General 07/07/08 documented as of this encounter
--- OUTSIDE RECORDS SUMMARY | 2024-10-06 18:46 | XMS_ITS | Encounter Summary ---
Author Organization [facility] Address [address] [place] [address] Care Team Providers Care Knee Bolter Name Role Phone Annalisa Christopher MD Primary Care Provider [phone] Reason for Visit * Reason Comments Sinus Infection Encounter Details Date Type Department Care Team (Latest Contact Info) Description 12/17/2015 11:30 AM CDT Office Visit [facility] Primary Care - [address] [place] [address] Annalisa Christopher MD [address] [place] [address] [address] [place] [address] Acute recurrent maxillary sinusitis (Primary [...] bacterial conjunctivitis of both eyes 372.03 H10.023 cuxcbhus-qvjjwfqna-xzehhvzchknbcy (CORTISPORIN) 3.5-10,000-10 mg-unit-mg/mL suspension * Josefina Morales - 12/17/2015 11:26 AM CDT Upper res Ear pain Sinus coming out the eye documented in this encounter Plan of Treatment Upcoming Encounters Date Type Department Care Team (Late st Contact Info) Description 04/25/2025 8:20 AM CDT Office Visit [facility] Primary Care - [facility] [address] [place] [address] Annalisa Christopher MD [address] [place] [address] documented as of this encounter [...] sinusitis documented in this encounter Care Teams Knee Bolter Relationship Specialty Start Date End Date Annalisa Christopher MD [address] [address] PCP - General 07/07/08 documented as of this encounter
--- OUTSIDE RECORDS SUMMARY | 2024-10-06 18:46 | XMS_ITS | Encounter Summary ---
Author Organization [facility] Address [address] [place] [address] Care Team Providers Care Lapel Stitcher Name Role Phone Annalisa Christopher MD Primary Care Provider [phone] Reason for Referral * Radiology Services (Routine) - Closed Specialty Diagnoses / Procedures Referred By Bairon t Referred To Contact Diagnoses Visit for screening mammogram Procedures MAMMO SCREEN BILAT W OR WO CAD Annalisa Christopher MD [address] [place] [address] Referral ID Status Reason Start Date Expiration Date V isits Requested Visits Authorized [id number] Closed STL CTS 10/12/2018 11/12/2019 1 1 PARK ATTENDANT * Eval and Treat (Routine) - Closed Specialty Diagnoses / Procedures Referred By Contaviva boone Referred To Contact Otolaryngology Diagnoses Acute recurrent maxillary sinusitis Annalisa Christopher MD [address] [place] [address] Dhruv Brennan MD [address] [facility] [address] [place] [address] Referral ID Status Reason Start Date Expiration Date V isits Requested Visits Authorized [id number] Closed CRS To Schedule (STL) 10/12/2018 10/12/2019 1 1 PARK ATTENDANT Reason for Visit * Reason Comments Physical Encounter Details Date Type Department Care Team (Late st Contact Info) Description 10/12/2018 1:45 PM CAR PARK ATTENDANT Office Visit [facility] Care - [facility] [address] [place] [address] Annalisa Christopher MD [address] [place] [address] Preventative health care (Primary Dx); [...] Comments Blood Pressure 106/62 10/12/2018 1:55 PM CAR PARK ATTENDANT Pulse - - Temperature - - Respiratory Rate - - Oxygen Saturation - - Inhaled Oxygen Concentration - - Weight 88.9 kg (196 lb) 10/12/2018 1:55 PM CAR PARK ATTENDANT Height 170.2 cm (5' 7 ) 10/12/2018 1:55 PM CAR PARK ATTENDANT Body Mass Index 30.7 10/12/2018 1:55 PM CAR PARK ATTENDANT documented in this encounter Progress Notes [...] 100 mg capsule AMB REFERRAL TO ENT PARK ATTENDANT documented in this encounter Plan of Treatment Upcoming Encounters Date Type Department Care Team (Late st Contact Info) Description 04/25/2025 8:20 AM CDT Office Visit [facility] Primary Care - [facility] [address] [place] [address] Annalisa Christopher MD [address] [place] [address] Scheduled Referrals Name Type Priority Associated Diagnoses Orde r Schedule AMB REFERRAL TO ENT Outpatient Referral Routine Acute recurrent maxillary sinusitis Ordered: 10/12/2018 documented as of this encounter Results * MAMMO SCREEN BILAT W OR WO CAD (03/29/2019) Anatomical Region Laterality Modality Breast Bilateral Other Annalisa Christopher MD MAMMO ORDERABLES * (ABNORMAL) URINALYSIS WITH REFLEX MICROSCOPIC (10/31/2018 10:52 AM CAR PARK ATTENDANT) COLOR UA Yellow Pale to Dark Yellow 10/31/2018 1:54 PM CAR PARK ATTENDANT [facility] - . [facility] CLARITY UA Clear Clear 10/31/2018 1:54 PM CAR PARK ATTENDANT [facility] . [facility] SPECIFIC GRAVITY UA 1.013 1.003 - 1.035 10/31/2018 1:54 PM CAR PARK ATTENDANT [facility] - . [facility] PH UA 6.0 5.0 - 8.0 10/31/2018 1:54 PM CAR PARK ATTENDANT [facility] - . [facility] LEUKOCYTE ESTERASE UA Negative Negative 10/31/2018 1:54 PM CAR PARK ATTENDANT [facility] NITRITE UA Negative Negative 10/31/2018 1:54 PM CAR PARK ATTENDANT [facility] PROTEIN UA Negative Negative 10/31/2018 1:54 PM CAR PARK ATTENDANT [facility] . [facility] GLUCOSE UA Negative Negative 10/31/2018 1:54 PM CAR PARK ATTENDANT [facility] . [facility] KETONES UA Negative Negative 10/31/2018 1:54 PM [facility] UROBILINOGEN UA Normal <2.0 mg/dL 9 1:54 PM [facility] BILIRUBIN UA Negative Negative 10/31/2018 1:54 PM [facility] BLOOD UA 1+(A) Negative 10/31/2018 1:54 PM [facility] WBC UA 0-2 0 - 2 /hpf 10/31/2018 1:54 PM [facility] RBC UA 0-2 0 - 2 /hpf 10/31/2018 1:54 PM [facility] BACTERIA UA Negative Negative /hpf 10/31/2018 1:54 PM [facility] Urine URINE SPECIMEN OBTAINED BY CLEAN CATCH PROCEDURE / Unknown Collection / Unknown 10/31/2018 10:52 AM CAR PARK ATTENDANT 10/31/2018 11:20 AM CAR PARK ATTENDANT Annalisa Christopher MD URINE ORDERABLES [facility]# [id number] [address] [place] [address] * HEMOGLOBIN A1C (10/31/2018 10:52 AM CAR PARK ATTENDANT) HEMOGLOBIN A1C 5.4 <5.7 % 10/31/2018 5:13 PM [facility] EST. AVG GLUCOSE, A1C 108 mg/dL 10/31/2018 5:13 PM [facility] Blood Venipuncture / Unknown 10/31/2018 10:52 AM CAR PARK ATTENDANT 10/31/2018 10:52 AM CAR PARK ATTENDANT Narrative [facility] - 10/31/2018 5:13 PM CAR PARK ATTENDANT HGB A1C INTERPRETATION NORMAL: ? <5.7% PRE-DIABETES: 5.7 - 6.4% DIABETES: ? 6.5% OR GREATER Annalisa Christopher MD CHEMISTRY ORDERABLES [facility]# [id number] [address] [place] [address] * VITAMIN D 25 HYDROXY (10/31/2018 10:52 AM CAR PARK ATTENDANT) Pathologist [facility] VITAMIN D TOTAL (25OH) 56 30 - 100 ng/mL 10/31/2018 5:02 PM CAR PARK ATTENDANT [facility] Blood Venipuncture / Unknown 10/31/2018 10:52 AM CAR PARK ATTENDANT 10/31/2018 10:52 AM CAR PARK ATTENDANT Narrative [facility] - 10/31/2018 5:02 PM CAR PARK ATTENDANT Interpretive Data Chart: Deficient: 0 - 20 ng/mL Insufficient: 21 - 29 ng/mL Sufficient: 30 - 100 ng/mL Increased Risk of Hypercalciuria: >100 ng/mL Toxic: >150 ng/mL Annalisa Christopher MD CHEMISTRY ORDERABLES Performing Organization Address City/[facility]/ZIP Co de Phone Number [facility]# [id number] [address] [place] [address] * TSH (10/31/2018 10:52 AM CAR PARK ATTENDANT) [facility] TSH 0.68 0.27 - 4.20 uIU/mL 10/31/2018 3:47 PM [facility] Blood Venipuncture / Unknown 10/31/2018 10:52 AM CAR PARK ATTENDANT 10/31/2018 10:52 AM CAR PARK ATTENDANT Annalisa Christopher MD CHEMISTRY ORDERABLES Performing Organization Address City/[facility]/ZIP Co de Phone Number [facility]# [id number] [address] [place] [address] * (ABNORMAL) CBC WITH DIFFERENTIAL (10/31/2018 10:52 AM CAR PARK ATTENDANT) [facility] WBC 5.0 4.0 - 9.8 K/uL 10/31/2018 1:50 PM CAR PARK ATTENDANT [facility] RBC 4.90 3.90 - 4.90 M/uL 10/31/2018 1:50 PM CAR PARK ATTENDANT [facility] . [facility] HEMOGLOBIN 14.4 11.8 - 14.8 g/dL 10/31/2018 1:50 PM CAR PARK ATTENDANT [facility] HEMATOCRIT 44.5(H) 35.5 - 44.0 % 10/31/2018 1:50 PM CAR PARK ATTENDANT [facility] MCV 90.8 82.0 - 99.0 fL 10/31/2018 1:50 PM CAR PARK ATTENDANT [facility] MCH 29.4 27.2 - 32.6 pg 10/31/2018 1:50 PM CAR PARK ATTENDANT [facility] MCHC 32.4 31.5 - 35.5 g/dL 10/31/2018 1:50 PM CAR PARK ATTENDANT [facility] RDW 12.3 11.5 - 14.5 % 10/31/2018 1:50 PM CAR PARK ATTENDANT [facility] RDW-STDEV 41.3 37.1 - 48.7 fL 10/31/2018 1:50 PM CAR PARK ATTENDANT [facility] PLATELETS 275 140 - 350 K/uL 10/31/2018 1:50 PM CAR PARK ATTENDANT [facility] MPV 9.6 9.3 - 12.4 fL 10/31/2018 1:50 PM CAR PARK ATTENDANT [facility] . [facility] NEUTROPHILS 51 % 10/31/2018 1:50 PM CAR PARK ATTENDANT [facility] - . [facility] LYMPHOCYTES 38 % 10/31/2018 1:50 PM CAR PARK ATTENDANT [facility] MONOCYTES 8 % 10/31/2018 1:50 PM CAR PARK ATTENDANT [facility] EOSINOPHILS 2 % 10/31/2018 1:50 PM CAR PARK ATTENDANT [facility] BASOPHILS 1 % 10/31/2018 1:50 PM CAR PARK ATTENDANT [facility] . [facility] IMMATURE GRANULOCYTES 0 % 10/31/2018 1:50 PM CAR PARK ATTENDANT [facility] . [facility] NEUTROPHIL ABSOLUTE 2.55 1.90 - 7.00 K/uL 10/31/2018 1:50 PM CAR PARK ATTENDANT [facility] - . [facility] LYMPHOCYTE ABSOLUTE 1.92 0.70 - 4.50 K/uL 10/31/2018 1:[address] [facility] MONOCYTE ABSOLUTE 0.42 0.10 - 1.30 K/uL 10/31/2018 1:50 PM CAR PARK ATTENDANT [facility] EOSINOPHIL ABSOLUTE 0.09 0.00 - 0.70 K/uL 10/31/2018 1:50 PM CAR PARK ATTENDANT [facility] BASOPHILS ABSOLUTE 0.03 0.00 - 0.20 K/uL 10/31/2018 1:50 PM CAR PARK ATTENDANT [facility] IMMATURE GRANULOCYTES ABSOLUTE 0.01 0.00 - 0.03 K/uL 10/31/2018 1:[address] [facility] Blood Venipuncture / Unknown 10/31/2018 10:52 AM CAR PARK ATTENDANT 10/31/2018 10:52 AM CAR PARK ATTENDANT Annalisa Christopher MD HEMATOLOGY ORDERABLE S [facility] - [facility]# [id number] [address] [place] [address] * (ABNORMAL) COMPREHENSIVE METABOLIC PANEL (10/31/2018 10:52 AM CAR PARK ATTENDANT) SODIUM 138 136 - 145 mmol/L 10/31/2018 3:[address] [facility] - . [facility] POTASSIUM 4.3 3.5 - 5.0 mmol/L 10/31/2018 3:42 PM CAR PARK ATTENDANT [facility] - . [facility] CHLORIDE 103 98 - 107 mmol/L 10/31/2018 3:42 PM CAR PARK ATTENDANT [facility] CO2 23 22 - 29 mmol/L 10/31/2018 3:42 PM CAR PARK ATTENDANT [facility] CALCIUM 9.6 8.6 - 10.2 mg/dL 10/31/2018 3:42 PM CAR PARK ATTENDANT [facility] BUN 10 6 - 20 mg/dL 10/31/2018 3:42 PM CAR PARK ATTENDANT [facility] CREATININE 0.73 0.51 - 0.95 mg/dL 10/31/2018 3:42 PM CAR PARK ATTENDANT [facility] - . [facility] GLUCOSE 93 74 - 99 mg/dL 10/31/2018 3:42 PM [facility] TOTAL PROTEIN 6.9 6.7 - 8.6 g/dL 10/31/2018 3:42 PM [facility] - . [facility] ALBUMIN 4.3 3.5 - 5.2 g/dL 10/31/2018 3:42 PM [facility] BILIRUBIN TOTAL 0.4 0.3 - 1.2 mg/dL 10/31/2018 3:42 PM [facility] ALKALINE PHOSPHATASE 95 35 - 104 U/L 10/31/2018 3:42 PM [facility] AST 36(H) <33 U/L 10/31/2018 3:42 PM [facility]. [facility] ALT 63(H) <34 U/L 10/31/2018 3:42 PM [facility] GFR >60 >=60 mL/min/1.7 3 sq meter 10/31/2018 3:42 PM [facility] Comment: eGFR has not been validated for [...] mL/min/1.7 3 sq meter 10/31/2018 3:42 PM [facility] ANION GAP 12 8 - 16 mmol/L 10/31/2018 3:42 PM [facility] Blood Venipuncture / Unknown 10/31/2018 10:52 AM CAR PARK ATTENDANT 10/31/2018 10:52 AM [facility] - 10/31/2018 3:[address] [facility] Samples containing indocyanine green cause interferences on Total and/or Direct Bilirubin and must not be measured. Annalisa Christopher MD CHEMISTRY ORDERABLES Performing Organization Address City/[facility]/ZIP Co de Phone Number [facility] CLIA# [id number] [address] [place] [address] * (ABNORMAL) LIPID PANEL (10/31/2018 10:52 AM CAR PARK ATTENDANT) CHOLESTEROL 208(H) <200 mg/dL 10/31/2018 3:42 PM [facility] TRIGLYCERIDE 97 <150 mg/dL 10/31/2018 3:42 PM [facility] HDL 49 40 - 59 mg/dL 10/31/2018 3:42 PM [facility]. [facility] LDL CALCULATED 140(H) <100 mg/dL 10/31/2018 3:42 PM [facility] NON-HDL CHOLESTEROL 159(H) <130 mg/dL 10/31/2018 3:42 PM [facility] Blood Venipuncture / Unknown 10/31/2018 10:52 AM CAR PARK ATTENDANT 10/31/2018 10:52 AM CAR PARK ATTENDANT [facility] - 10/31/2018 3:42 PM CAR PARK ATTENDANT TOTAL CHOLESTEROL ??mg/dL ??Desirable <200 ??Borderline high [...] Panels (NCEP/AMA) Annalisa Christopher MD CHEMISTRY ORDERABLES [facility] CLIA# [id number] [address] [place] [address] documented in this encounter Visit Diagnoses Diagnosis [...] documented as of this encounter Care Teams Lapel Stitcher Relationship Specialty Start Date End Date Annalisa Christopher MD [address] [place] [address] PCP - General 07/07/08 documented as of this encounter
--- OUTSIDE RECORDS SUMMARY | 2024-10-06 18:46 | XMS_ITS | Encounter Summary ---
Author Organization [facility] Address [address] [place] [address] Care Team Providers Care Electronics Engineering Professor Name Role Phone Annalisa Christopher MD Primary Care Provider [phone] Reason for Visit * Reason Comments Dysuria for the past 2 days. Siria Kelly RN 07/12/15 1530 * Auth/Cert Specialty Diagnoses / Procedures Referred By Bairon boone Referred To Contact Urgent Care Diagnoses [facility] [address] [address] Referral ID Status Reason Start Date Expiration Date Visits Re quested Visits Authorized [id number] 1 1 Encounter Details Date Type Department Care Team (Late st Contact Info) Description 07/12/2015 3:25 PM CDT Office Visit [address] [address] Dena Al MD [address] [place] [address] Dysuria (Primary Dx); Frequency of [...] history is provided by the patient. No specialized language instructor was used. REVIEW OF SYSTEMS Review of [...] Gram 1 ??? fluticasone (FLONASE) 50 mcg/spray Burnett, Suspension SPRAY TWICE IN EACH NOSTRIL EVERY [...] CURETTAGE SUCTION performed by DOUGLAS JEFFREY at [facility] OR [facility] ??? Pr delivery only 2003 ??? Pr delivery only 08/31/2011 SECTION performed by Douglas Jeffrey MD at [facility] L&D Family History Problem Relation Age of Onset ??? Hypertension Father ??? Heart Disease Father [place] 60's ??? Stroke Father ??? Diabetes Mother [...] you do not have a primary doctor, [facility] offers a free referral service by calling [phone], , or toll free . This information can also be accessed on the web at [email or web address]. If a test or physician referral was ordered for you today, you can schedule these by calling Central Testing Scheduling (CTS),[phone], or Central Referral Scheduling (CRS), during normal work hours. Inform them you had a test or referral ordered during your visit at the [facility]. If you are female and on hormone based control there is a slight increase in risk with the use of antibiotics, the patient is asked to back up her OCP with condom or other method during this (or any) cycle during which she is taking antibiotics. Thank you for choosing to the [facility] Location [address] [place] [address] [place] [address] [phone] [facility] Location [address] [place] [address] [place] [address] [phone] [facility] [address] [facility] [address] . [place], [place] [id number] IMPORTANT: You were examined and treated today on an urgent basis. This was not a substitute for, nor an effort to provide, complete and ongoing medical care. On arrival to [facility], you may have reported taking home medications [...] appropriate medical personnel. Thank-you again for choosing [facility]. Urinary Tract Infection in Women: After Your [...] Where can you learn more? Go to http://www.[employer].net/patiented. Enter K848 in the search box to learn more about Urinary Tract Infection in Women: After Your Visit. Current as of: June 03, 2014 Content Version: 10.5 ?? [id number] [employer]. Care instructions adapted under license by your healthcare professional. If you have questions about a medical condition or this instruction, always ask your healthcare professional. [employer] disclaims any warranty or liability for your use of this information. documented in this encounter Plan of Treatment Upcoming Encounters Date Type Department Care Team (Late st Contact Info) Description 04/25/2025 8:20 AM CDT Office Visit [facility] [address] [place] [address] Annalisa Christopher MD [address] [place] [address] documented as of this encounter Procedures Procedure Name Priority Date/Time Associated Diagnosis Comments POC URINALYSIS DIPSTICK AUTOMATED Routine 07/12/2015 3:52 PM CDT Dysuria documented in this encounter Results * (ABNORMAL) POC URINALYSIS DIPSTICK AUTOMATED (07/12/2015 3:52 PM CDT) COLOR UA Yellow Pale to Dark Yellow 07/12/2015 3:40 PM CDT [facility] CLARITY UA Clear Clear 07/12/2015 3:40 PM CDT [facility] SPECIFIC GRAVITY UA 1.020 1.003 - 1.035 07/12/2015 3:40 PM CDT [facility] PH UA 5.5 5.0 - 8.0 07/12/2015 3:40 PM CDT [facility] LEUKOCYTE ESTERASE UA Trace(A) Negative 07/12/2015 3:40 PM CDT [facility] NITRITE UA Negative Negative 07/12/2015 3:40 PM CDT [facility] PROTEIN UA Negative Negative 07/12/2015 3:40 PM CDT [facility] GLUCOSE UA Negative Negative 07/12/2015 3:40 PM CDT [facility] KETONES UA Trace(A) Negative 07/12/2015 3:40 PM CDT [facility] UROBILINOGEN UA 1.0 <2.0 mg/dL 07/12/2015 3:40 PM CDT [facility] BILIRUBIN UA Negative Negative 07/12/2015 3:40 PM CDT [facility] BLOOD UA Trace(A) Negative 07/12/2015 3:40 PM CDT [facility] Urine 07/12/2015 3:52 PM CDT 07/12/2015 3:40 PM CDT Dena Al MD POINT OF CARE TESTIN G [facility] CLIA # [id number] [address] [place] [id number] documented in this encounter Visit Diagnoses Diagnosis Dysuria- Primary Frequency of urination Urinary frequency Urinary tract infection without hematuria, site unspecified documented in this encounter Care Teams Electronics Engineering Professor Relationship Specialty Start Date End Date Annalisa Christopher MD [address] [place] [address] PCP - General 07/07/08 documented as of this encounter
--- OUTSIDE RECORDS SUMMARY | 2024-10-06 18:46 | XMS_ITS | Encounter Summary ---
Author Organization [facility] Address [address] [place] [address] Care Team Providers Care Director External Communications Name Role Phone Annalisa Christopher MD Primary Care Provider [phone] Reason for Visit * Reason Onset Date Comments Sinus Problem 06/12/2017 Encounter Details Date Type Department Care Team (Late st Contact Info) Description 06/12/2017 Telephone [facility] Primary Care - [address] [place] [address] Annalisa Christopher MD [address] [place] [address] [address] [place] [address] Sinus Problem Social History Tobacco [...] 04/25/2025 8:20 AM CDT Office Visit [facility] Primary Care - [facility] [address] [place] [address] Annalisa Christopher MD [address] [place] [address] documented as of this encounter Visit Diagnoses Not on filedocumented in this encounter Additional Health Concerns Assessment Noted Time PHQ-9 Depression Total Score: 1 06/06/20 16 9:00 AM CDT documented as of this encounter Care Teams Director External Communications Relationship Specialty Start Date End Date Annalisa Christopher MD [address] [address] [place] [address] PCP - General 07/07/08 documented as of this encounter
--- OUTSIDE RECORDS SUMMARY | 2024-10-06 18:46 | XMS_ITS | Encounter Summary ---
Author Organization [facility] Address [address] [place] [address] Care Team Providers Care Esthetician Permanent Makeup Artist Name Role Phone Annalisa Christopher MD Primary Care Provider [phone] Reason for Visit * Reason Onset Date Comments Upper Respiratory Symptoms 07/04/2019 Encounter Details Date Type Department Care Team (Late st Contact Info) Description 07/04/2019 Telephone [facility] Primary Care - [address] [place] [address] Annalisa Christopher MD [address] [place] [address] [address] [place] [address] Upper Respiratory Symptoms Social History [...] [facility] [address] [facility] [address] [place] [address] Annalisa Christopher MD [address] [facility] [address] [place] [address] documented as of this encounter Visit Diagnoses Not on filedocumented in this encounter Additional Health Concerns Assessment Noted Time PHQ-9 Depression Total Score: 1 06/06/20 16 9:00 AM CDT documented as of this encounter Care Teams Esthetician Permanent Makeup Artist Relationship Specialty Start Date End Date Annalisa Christopher MD [address] [facility] [address] [place] [address] PCP - General 07/07/08 documented as of this encounter
--- OUTSIDE RECORDS SUMMARY | 2024-10-06 18:46 | XMS_ITS | Encounter Summary ---
Author Organization [facility] Address [address] [place] [address] Care Team Providers Care Career Guidance Counselor Name Role Phone Annalisa Christopher MD Primary Care Provider [phone] Reason for Visit * Reason Onset Date Comments Upper Respiratory Symptoms 07/05/2016 Encounter Details Date Type Department Care Team (Late st Contact Info) Description 07/05/2016 Telephone [facility] Primary Care - [address] [place] [address] Annalisa Christopher MD [address] [place] [address] [address] [place] [address] Upper Respiratory Symptoms Social History [...] [facility] - [facility] [address] [facility] [address] [place] [address] Annalisa Christopher MD [address] [facility] [address] [place] [address] documented as of this encounter Visit Diagnoses Not on filedocumented in this encounter Additional Health Concerns Assessment Noted Time PHQ-9 Depression Total Score: 1 06/06/20 16 9:00 AM CDT documented as of this encounter Care Teams Career Guidance Counselor Relationship Specialty Start Date End Date Annalisa Christopher MD [address] [facility] [address] [place] [address] PCP - General 07/07/08 documented as of this encounter
--- OUTSIDE RECORDS SUMMARY | 2024-10-06 18:46 | XMS_ITS | Encounter Summary ---
Author Organization [facility] Address [address] [place] [address] Care Team Providers Care Proof Plate Maker Name Role Phone Annalisa Christopher MD Primary Care Provider [phone] Reason for Visit * Reason Onset Date Comments Medication Refill 05/27/2016 Encounter Details Date Type Department Care Team (Late st Contact Info) Description 05/27/2016 Refill [facility] Primary Care - [address] [place] [address] Annalisa Christopher MD [address] [place] [address] [place] [address] Social History Tobacco Use Types Packs/Day [...] Visit [facility] Primary Care - [facility] [address] [facility] [address] [place] [address] Annalisa Christopher MD [address] [facility] [address] [place] [address] documented as of this encounter Visit Diagnoses Not on filedocumented in this encounter Care Teams Proof Plate Maker Relationship Specialty Start Date End Date Annalisa Christopher MD [address] [facility] [address] [place] [address] PCP - General 07/07/08 documented as of this encounter
--- OUTSIDE RECORDS SUMMARY | 2024-10-06 18:46 | XMS_ITS | Encounter Summary ---
Author Organization [facility] Address [address] [place] [address] Care Team Providers Care Centrifugal Wax Molder Name Role Phone Annalisa Christopher MD Primary Care Provider [phone] Encounter Details Date Type Department Care Team (Late st Contact Info) Description 10/16/2017 Abstract [facility] - [address] [place] [address] Annalisa Christopher MD [address] [place] [address] [address] [place] [address] Social History Tobacco Use Types [...] CDT Office Visit [facility] [address] [place] [address] [address] [place] [address] Annalisa Christopher MD [address] [place] [address] [address] [place] [address] documented as of this encounter Visit Diagnoses Not on filedocumented in this encounter Additional Health Concerns Assessment Noted Time PHQ-9 Depression Total Score: 1 06/06/20 16 9:00 AM CDT documented as of this encounter Care Teams Centrifugal Wax Molder Relationship Specialty Start Date End Date Annalisa Christopher MD [address] [place] [address] PCP - General 07/07/08 documented as of this encounter
--- OUTSIDE RECORDS SUMMARY | 2024-10-06 18:46 | XMS_ITS | Encounter Summary ---
Author Organization [facility] Address [address] [place] [address] Care Team Providers Care Residential Mental Health Worker Name Role Phone Annalisa Christopher MD Primary Care Provider [phone] Reason for Visit * Reason Onset Date Comments Sinus Problem 08/31/2018 Encounter Details Date Type Department Care Team (Late st Contact Info) Description 08/31/2018 Telephone [facility] Primary Care - [address] [place] [address] Annalisa Christopher MD [address] [place] [address] [address] [place] [address] Sinus Problem Social History Tobacco [...] 08/31/2018 3:59 PM CST Spoke to pt CUTTING MACHINE OPERATOR * Telephone Encounter - Annalisa Christopher MD - 08/31/2018 3:40 PM CST Amox sent Call back if no better CUTTING MACHINE OPERATOR * Telephone Encounter - Josefina Dye - 08/31/2018 8:45 AM CST Pt says having pressure in the ears, and underneath the eyes, Pt says have lots of drainage and sore throat Blowing out green and yellow mucus. Pt says sxs Been since Mon. Pt took zyrtech alkaseltzer plus Pt wanting Rx CUTTING MACHINE OPERATOR documented in this encounter Plan of Treatment Upcoming Encounters Date Type Department Care Team (Late st Contact Info) Description 04/25/2025 8:20 AM CDT Office Visit [facility] Primary Care - [facility] [address] [facility] [address] [place] [phone] Annalisa Christopher MD [address] [facility] [address] [place] [address] documented as of this encounter Visit Diagnoses Not on filedocumented in this encounter Additional Health Concerns Assessment Noted Time PHQ-9 Depression Total Score: 1 06/06/20 16 9:00 AM CDT documented as of this encounter Care Teams Residential Mental Health Worker Relationship Specialty Start Date End Date Annalisa Christopher MD [address] [facility] [address] [place] [phone] PCP - General 07/07/08 documented as of this encounter
--- OUTSIDE RECORDS SUMMARY | 2024-10-06 18:46 | XMS_ITS | Encounter Summary ---
Author Organization [facility] Address [address] [place] [address] Care Team Providers Care Gun Perforator Name Role Phone Annalisa Christopher MD Primary Care Provider [phone] Encounter Details Date Type Department Care Team (Late st Contact Info) Description 04/01/2019 Orders Only [facility] [address] [place] [address] [address] [place] [address] Annalisa Christopher MD [address] [place] [address] [address] [place] [address] Visit for screening mammogram Social [...] 04/25/2025 8:20 AM CDT Office Visit [facility] [address] [place] [address] [address] [place] [address] Annalisa Christopher MD [address] [place] [address] [address] [place] [address] documented as of this encounter [...] documented as of this encounter Care Teams Gun Perforator Relationship Specialty Start Date End Date Annalisa Christopher MD [address] [place] [address] PCP - General 07/07/08 documented as of this encounter
--- OUTSIDE RECORDS SUMMARY | 2024-10-06 18:46 | XMS_ITS | Encounter Summary ---
Author Organization [facility] Address [address] [place] [address] Care Team Providers Care Personal Assistant Name Role Phone Annalisa Christopher MD Primary Care Provider [phone] Reason for Visit * Reason Onset Date Comments Sinus Problem 01/28/2016 Encounter Details Date Type Department Care Team (Late st Contact Info) Description 01/28/2016 Telephone [facility] Primary Care - [address] [place] [address] Annalisa Christopher MD [address] [place] [address] [address] [place] [address] Sinus Problem Social History Tobacco [...] Visit [facility] Primary Care - [facility] [address] [facility] [address] [place] [address] Annalisa Christopher MD [address] [facility] [address] [place] [address] documented as of this encounter Visit Diagnoses Not on filedocumented in this encounter Care Teams Personal Assistant Relationship Specialty Start Date End Date Annalisa Christopher MD [address] [facility] [address] [place] [address] PCP - General 07/07/08 documented as of this encounter
--- OUTSIDE RECORDS SUMMARY | 2024-10-06 18:46 | XMS_ITS | Encounter Summary ---
Author Organization [facility] Address [address] [place] [address] Care Team Providers Care Project Specialist Name Role Phone Annalisa Christopher MD Primary Care Provider [phone] Reason for Visit * Reason Comments Medication Refill Encounter Details Date Type Department Care Team (Late st Contact Info) Description 01/28/[address] [place] [address] Annalisa Christopher MD [address] [place] [address] [address] [place] [address] Social History Tobacco Use Types [...] Description 04/25/2025 8:20 AM CDT Office Visit [facility] [address] [place] [address] [address] [place] [address] Annalisa Christopher MD [address] [place] [address] [address] [place] [address] documented as of this encounter Visit Diagnoses Not on filedocumented in this encounter Additional Health Concerns Assessment Noted Time PHQ-9 Depression Total Score: 1 06/06/20 16 9:00 AM CDT documented as of this encounter Care Teams Project Specialist Relationship Specialty Start Date End Date Annalisa Christopher MD [address] [place] [address] PCP - General 07/07/08 documented as of this encounter
--- OUTSIDE RECORDS SUMMARY | 2024-10-06 18:46 | XMS_ITS | Encounter Summary ---
Author Organization [facility] Address [address] [place] [address] Care Team Providers Care Optical Lathe Operator Name Role Phone Annalisa Christopher MD Primary Care Provider [phone] Reason for Visit * Reason Onset Date Comments Upper Respiratory Symptoms 09/20/2019 Encounter Details Date Type Department Care Team (Late st Contact Info) Description 09/20/2019 Telephone [facility] Primary Care - [address] [place] [address] Annalisa Christopher MD [address] [place] [address] [address] [place] [address] Upper Respiratory Symptoms Social History [...] w pt appt made per her request GER PROCESS IMPROVEMENT * Telephone Encounter - Cory Morris MD - 09/20/2019 10:22 AM MANAGER PROCESS IMPROVEMENT Suggest appt with MK next week to discuss further testing and or referral to ENT or other specialist. Finish up meds in meantime GER PROCESS IMPROVEMENT * Telephone Encounter - Emely Cuadra - [...] pot Robitussin Asthma is better. pls advise? GER PROCESS IMPROVEMENT documented in this encounter Plan of Treatment Upcoming Encounters Date Type Department Care Team (Late st Contact Info) Description 04/25/2025 8:20 AM CDT Office Visit [facility] Primary Care - [facility] [address] [place] [phone] Annalisa Christopher MD [address] [place] [address] documented as of this encounter Visit Diagnoses Not on filedocumented in this encounter Additional Health Concerns Assessment Noted Time PHQ-9 Depression Total Score: 1 06/06/20 16 9:00 AM CDT documented as of this encounter Care Teams Optical Lathe Operator Relationship Specialty Start Date End Date Annalisa Christopher MD [address] [place] [address] PCP - General 07/07/08 documented as of this encounter
--- OUTSIDE RECORDS SUMMARY | 2024-10-06 18:46 | XMS_ITS | Encounter Summary ---
Author Organization [facility] Address [address] [place] [address] Care Team Providers Care Puppy Trainer Name Role Phone Annalisa Christopher MD Primary Care Provider [phone] Reason for Visit * Reason Comments Medication Refill Encounter Details Date Type Department Care Team (Late st Contact Info) Description 08/28/[address] [place] [address] Annalisa Christopher MD [address] [place] [address] [address] [place] [address] PTSD (post-traumatic stress disorder) Social [...] 04/25/2025 8:20 AM CDT Office Visit [facility] [address] [place] [address] [address] [place] [address] Annalisa Christopher MD [address] [place] [address] [address] [place] [address] documented as of this encounter Visit Diagnoses Diagnosis PTSD (post-traumatic stress disorder) Posttraumatic stress disorder documented in this encounter Additional Health Concerns Assessment Noted Time PHQ-9 Depression Total Score: 1 06/06/20 16 9:00 AM CDT documented as of this encounter Care Teams Puppy Trainer Relationship Specialty Start Date End Date Annalisa Christopher MD [address] [place] [address] PCP - General 07/07/08 documented as of this encounter
--- OUTSIDE RECORDS SUMMARY | 2024-10-06 18:46 | XMS_ITS | Encounter Summary ---
Author Organization [facility] Address [address] [place] [address] Care Team Providers Care Animal Trainer Supervisor Name Role Phone Annalisa Christopher MD Primary Care Provider [phone] Reason for Visit * Reason Comments Medication Refill Encounter Details Date Type Department Care Team (Late st Contact Info) Description 07/30/[address] [place] [address] Annalisa Christopher MD [address] [place] [address] [address] [place] [address] Social History Tobacco Use Types [...] AM CDT Office Visit [facility] [address] [place] [address] [address] [place] [address] Annalisa Christopher MD [address] [place] [address] [address] [place] [address] documented as of this encounter Visit Diagnoses Not on filedocumented in this encounter Additional Health Concerns Assessment Noted Time PHQ-9 Depression Total Score: 1 06/06/20 16 9:00 AM CDT documented as of this encounter Care Teams Animal Trainer Supervisor Relationship Specialty Start Date End Date Annalisa Christopher MD [address] [place] [address] PCP - General 07/07/08 documented as of this encounter
--- OUTSIDE RECORDS SUMMARY | 2024-10-06 18:46 | XMS_ITS | Encounter Summary ---
Author Organization [facility] Address [address] [place] [address] Care Team Providers Care Office Support Name Role Phone Annalisa Christopher MD Primary Care Provider [phone] Reason for Visit * Reason Onset Date Comments Medication Refill 01/12/2015 Encounter Details Date Type Department Care Team (Late st Contact Info) Description 01/12/2015 Refill [facility] Care - [address] [place] [address] Annalisa Christopher MD [address] [place] [address] [place] [address] Social History Tobacco Use Types Packs/Day [...] Description 04/25/2025 8:20 AM CDT Office Visit [address] [place] [phone] Annalisa Christopher MD [address] [place] [address] documented as of this encounter Visit Diagnoses Not on filedocumented in this encounter Care Teams Office Support Relationship Specialty Start Date End Date Annalisa Christopher MD [address] [place] [address] PCP - General 07/07/08 documented as of this encounter
--- OUTSIDE RECORDS SUMMARY | 2024-10-06 18:46 | XMS_ITS | Encounter Summary ---
Author Organization [facility] Address [address] [place] [address] Care Team Providers Care Nuclear Medicine Technologist Name Role Phone Annalisa Christopher MD Primary Care Provider [phone] Reason for Visit * Reason Onset Date Comments Upper Respiratory Symptoms 12/11/2018 Encounter Details Date Type Department Care Team (Late st Contact Info) Description 12/11/2018 Telephone [facility] Primary Care - [address] [place] [address] Annalias Christopher MD [address] [place] [address] [address] [place] [address] Upper Respiratory Symptoms Social History [...] [facility] Primary Care - [facility] [address] [facility] [address] [place] [address] Annalisa Christopher MD [address] [place] [address] documented as of this encounter Visit Diagnoses Not on filedocumented in this encounter Additional Health Concerns Assessment Noted Time PHQ-9 Depression Total Score: 1 06/06/20 16 9:00 AM CDT documented as of this encounter Care Teams Nuclear Medicine Technologist Relationship Specialty Start Date End Date Annalisa Christopher MD [address] [facility] [address] [place] [address] PCP - General 07/07/08 documented as of this encounter
--- OUTSIDE RECORDS SUMMARY | 2024-10-06 18:46 | XMS_ITS | Encounter Summary ---
Author Organization [facility] Address [address] [place] [address] Care Team Providers Care Pizza Driver Name Role Phone Annalisa Christopher MD Primary Care Provider [phone] Reason for Visit * Reason Onset Date Comments Upper Respiratory Symptoms 09/09/2015 Encounter Details Date Type Department Care Team (Late st Contact Info) Description 09/09/2015 Telephone [facility] Primary Care - [address] [place] [address] Annalisa Christopher MD [address] [place] [address] [address] [place] [address] Upper Respiratory Symptoms Social History [...] 09/09/2015 4:47 PM CST Spoke to pt CREW MEMBER * Telephone Encounter - Annalisa Christopher MD - 09/09/2015 4:31 PM CST Z-elizabeth sent CREW MEMBER * Telephone Encounter - Tiana Brothers - 09/09/2015 8:53 AM AIR CREW MEMBER Sinus drainage,headache,using otc medication, coughing,sore throat, sinus pressure above eyes, no body aches, sx x 2 wk's, asking for rx mimi 05/01/15 CREW MEMBER documented in this encounter Plan of Treatment Upcoming Encounters Date Type Department Care Team (Late st Contact Info) Description 04/25/2025 8:20 AM CDT Office Visit [facility] Primary Care - [facility] [address] [facility] [address] [place] [address] Annalisa Christopher MD [address] [facility] [address] [place] [address] documented as of this encounter Visit Diagnoses Not on filedocumented in this encounter Care Teams Pizza Driver Relationship Specialty Start Date End Date Annalisa Christopher MD [address] [facility] [address] [place] [address] PCP - General 07/07/08 documented as of this encounter
--- OUTSIDE RECORDS SUMMARY | 2024-10-06 18:46 | XMS_ITS | Encounter Summary ---
Author Organization [facility] Address [address] [place] [address] Care Team Providers Care Ribbon Cleaner Name Role Phone Annalisa Christopher MD Primary Care Provider [phone] Reason for Visit * Reason Comments Cough cough and chest roseline estion, treated for sinus infection 2 weeks ago without improvement 05/01/15 1055 claritza * Auth/Cert - Closed Specialty Diagnoses / Procedures Referred By Contac t Referred To Contact Urgent Care Diagnoses upper repiratory/sinus [facility] [address] [address] Referral ID Status Reason Start Date Expiration Date Visits Re quested Visits Authorized [id number] Closed 1 1 Encounter Details Date Type Department Care Team (Late st Contact Info) Description 05/01/2015 10:45 AM CDT Office Visit [facility] Urgent [address] [address] Emeterio Andrews DO NO ADDRESS [...] Dispense Refill ??? fluticasone (FLONASE) 50 mcg/spray [place], Suspension SPRAY TWICE IN EACH NOSTRIL EVERY [...] at [facility] ??? Pr delivery only 2003 ??? Pr delivery only 08/31/2011 SECTION performed by [place] Jeffrey MD at [facility] L&D Family History Problem Relation Age of Onset ??? Hypertension Father ??? Heart Disease Father MA 60's ??? Stroke Father ??? Diabetes Mother [...] Office Visit [facility] Primary Care - [facility] [address] [facility] [address] [place] [address] Annalisa Christopher MD [address] [facility] [address] [place] [address] documented as of this encounter Visit Diagnoses Diagnosis Cough- Primary Sore throat Acute pharyngitis Ear pain, right documented in this encounter Care Teams Ribbon Cleaner Relationship Specialty Start Date End Date Annalisa Christopher MD [address] [facility] [address] [place] [address] PCP - General 07/07/08 documented as of this encounter
--- OUTSIDE RECORDS SUMMARY | 2024-10-06 18:46 | XMS_ITS | Encounter Summary ---
Author Organization [facility] Address [address] [place] [address] Care Team Providers Care Sandfill Operator Surface Name Role Phone Annalisa Christopher MD Primary Care Provider [phone] Reason for Visit * Reason Onset Date Comments Results 11/13/2018 Encounter Details Date Type Department Care Team (Late st Contact Info) Description 11/13/2018 Telephone [facility] Primary Care - [address] [place] [address] Annalisa Christopher MD [address] [place] [address] [address] [place] [address] Results Social History Tobacco Use [...] - 11/13/2018 1:28 PM CST Letter sent ZINE REPAIRER * Telephone Encounter - Josefina Morales - 11/13/2018 1:28 PM CST ----- Message from Annalisa Christopher MD sent at 11/13/2018 8:56 AM MAGAZINE REPAIRER ----- Please remind patient to view the results on the [facility] ZINE REPAIRER documented in this encounter Plan of Treatment Upcoming Encounters Date Type Department Care Team (Late st Contact Info) Description 04/25/2025 8:20 AM CDT Office Visit [facility] Care - [facility] [address] [facility] [address] [place] [phone] Annalisa Christopher MD [address] [facility] [address] [place] [address] documented as of this encounter Visit Diagnoses Not on filedocumented in this encounter Additional Health Concerns Assessment Noted Time PHQ-9 Depression Total Score: 1 06/06/20 16 9:00 AM CDT documented as of this encounter Care Teams Sandfill Operator Surface Relationship Specialty Start Date End Date Annalisa Christopher MD [address] [facility] [address] [place] [address] PCP - General 07/07/08 documented as of this encounter
--- OUTSIDE RECORDS SUMMARY | 2024-10-06 18:46 | XMS_ITS | Encounter Summary ---
Author Organization [facility] Address [address] [place] [address] Care Team Providers Care Delivery Manager Name Role Phone Annalisa Christopher MD Primary Care Provider [phone] Reason for Visit * Reason Onset Date Comments Urinary Frequency 03/10/2015 Flank Pain 03/10/2015 Encounter Details Date Type Department Care Team (Late st Contact Info) Description 03/10/2015 Telephone [facility] Primary Care - [facility] [address] [place] [address] [address] [place] [address] Mery Villanueva APRN-BC [address] [facility] [address] [place] [address] Urinary Frequency; Flank Pain Social [...] read her urine test results from [facility] and has hematuria also and wanted to [...] she will call out medicine to pt's [facility] pharmacy. documented in this encounter Plan of Treatment Upcoming Encounters Date Type Department Care Team (Late st Contact Info) Description 04/25/2025 8:20 AM CDT Office Visit [facility] Primary Care - [facility] [address] [facility] [address] [place] [address] Annalisa Christopher MD [address] [place] [address] [place] [address] documented as of this encounter Visit Diagnoses Not on filedocumented in this encounter Care Teams Delivery Manager Relationship Specialty Start Date End Date Annalisa Christopher MD [address] [facility] [address] [place] [address] PCP - General 07/07/08 documented as of this encounter
--- OUTSIDE RECORDS SUMMARY | 2024-10-06 18:46 | XMS_ITS | Encounter Summary ---
Author Organization [facility] Address [address] [place] [address] Care Team Providers Care Excel Expert Name Role Phone Annalisa Christopher MD Primary Care Provider [phone] Reason for Visit * Reason Comments Sinus Pain Allergies Encounter Details Date Type Department Care Team (Late st Contact Info) Description 01/02/2017 9:20 AM CDT Office Visit [facility] Primary Care - [address] [place] [address] Mery Villanueva F, MACHINE SETTER SUPERVISOR- [address] [facility] [address] [place] [address] Allergic rhinitis due to pollen, [...] 01/02/2017 9:49 AM CDT Mery Villanueva APRN, [facility] [place] [address] SUBJECTIVE: Chief Complaint Patient presents with ??? [...] [facility] Primary Care - [facility] [address] [facility] [address] [place] [address] Annalisa Christopher MD [address] [place] [address] [place] [address] documented as of this encounter Visit Diagnoses Diagnosis Allergic rhinitis due to pollen, unspecified rhinitis seasonality- Primary Acute recurrent sinusitis, unspecified location Cough documented in this encounter Additional Health Concerns Assessment Noted Time PHQ-9 Depression Total Score: 1 06/06/20 16 9:00 AM CDT documented as of this encounter Care Teams Excel Expert Relationship Specialty Start Date End Date Annalisa Christopher MD [address] [facility] [address] [place] [address] PCP - General 07/07/08 documented as of this encounter
--- OUTSIDE RECORDS SUMMARY | 2024-10-06 18:46 | XMS_ITS | Encounter Summary ---
Author Organization [facility] Address [address] [place] [address] Care Team Providers Care Assurance Senior Name Role Phone Annalisa Christopher MD Primary Care Provider [phone] Reason for Visit * Reason Comments Physical non fasting Encounter Details Date Type Department Care Team (Late st Contact Info) Description 05/31/2017 11:00 AM CDT Office Visit [facility] Primary Care - [address] [place] [address] Annalisa Christopher MD [address] [place] [address] [place] [address] Preventative health care (Primary Dx); Allergic [...] 8:20 AM CDT Office Visit [facility] Care - [facility] [address] [place] [address] [address] [place] [address] Annalisa Christopher MD [address] [place] [address] [address] [place] [address] documented as of this encounter [...] - 6.0 % 05/31/2017 6:34 PM CDT [facility] Comment:Note: Effective as o f 10/16/2015 a new methodology, Turbidimetric inhibition immunoassay (TINIA),has been implemented. EST. AVG GLUCOSE, A1C 108 mg/dL 05/31/2017 6:34 PM CDT [facility] Blood Venipuncture / Unknown 05/31/2017 11:52 AM CDT 05/31/2017 3:26 PM CDT Annalisa Christopher MD CHEMISTRY ORDERABLES Performing Organization Address [facility]/ZIP Co de Phone Number [facility] CLIA# [id number] [address] [place] [address] * VITAMIN D 25 HYDROXY (05/31/2017 11:52 AM CDT) VITAMIN D TOTAL (25OH) 50 30 - 100 ng/mL 06/01/2017 10:10 AM CDT [facility] Blood Venipuncture / Unknown 05/31/2017 11:52 AM CDT 05/31/2017 3:26 PM CDT Narrative [facility] - 06/01/2017 10:10 AM CDT Interpretive Data Chart: Deficient: 0 - 20 ng/mL Insufficient: 21 - 29 ng/mL Sufficient: 30 - 100 ng/mL Increased Risk of Hypercalciuria: >100 ng/mL Toxic: >150 ng/mL Annalisa Christopher MD CHEMISTRY ORDERABLES Performing Organization Address [facility]/ZIP Co de Phone Number [facility] CLIA# [id number] [address] [place] [address] * TSH REFLEXIVE (05/31/2017 11:52 AM CDT) TSH 0.52 0.27 - 4.20 uIU/mL 05/31/2017 8:23 PM CDT [facility] Blood Venipuncture / Unknown 05/31/2017 11:52 AM CDT 05/31/2017 3:26 PM CDT Annalisa Christopher MD CHEMISTRY ORDERABLES [facility] CLIA# [id number] [address] [facility] [place] [address] * (ABNORMAL) CBC WITH DIFFERENTIAL (05/31/2017 11:52 AM CDT) Pathologist [facility] WBC 5.5 4.0 - 9.8 K/uL 05/31/2017 4:07 PM CDT [facility] [employer] [facility] RBC 5.03(H) 3.90 - 4.90 M/uL 05/31/2017 4:07 PM CDT [facility] [facility] HEMOGLOBIN 14.7 11.8 - 14.8 g/dL 05/31/2017 4:07 PM CDT [facility] [employer] [facility] HEMATOCRIT 44.7(H) 35.5 - 44.0 % 05/31/2017 4:07 PM CDT [facility] [employer] [facility] MCV 88.9 82.0 - 99.0 fL 05/31/2017 4:07 PM CDT [facility] [employer] [facility] MCH 29.2 27.2 - 32.6 pg 05/31/2017 4:07 PM CDT [facility] [employer] [facility] MCHC 32.9 31.5 - 35.5 g/dL 05/31/2017 4:07 PM CDT [facility] [employer] [facility] RDW 12.3 11.5 - 14.5 % 05/31/2017 4:07 PM CDT [facility] [employer] [facility] RDW-STDEV 40.6 37.1 - 48.7 fL 05/31/2017 4:07 PM CDT [facility] [employer] [facility] PLATELETS 272 140 - 350 K/uL 05/31/2017 4:07 PM CDT [facility] [employer] [facility] MPV 10.6 9.3 - 12.4 fL 05/31/2017 4:07 PM CDT [facility] [employer] [facility] NEUTROPHILS 59 % 05/31/2017 4:07 PM CDT [facility] LYMPHOCYTES 30 % 05/31/2017 4:07 PM CDT [facility] MONOCYTES 9 % 05/31/2017 4:07 PM CDT [facility] EOSINOPHILS 1 % 05/31/2017 4:07 PM CDT [facility] BASOPHILS 0 % 05/31/2017 4:07 PM CDT [facility] IMMATURE GRANULOCYTES 0 % 05/31/2017 4:07 PM CDT [facility] NEUTROPHIL ABSOLUTE 3.26 1.90 - 7.00 K/uL 05/31/2017 4:07 PM CDT [facility] LYMPHOCYTE ABSOLUTE 1.66 0.70 - 4.50 K/uL 05/31/2017 4:07 PM CDT [facility] MONOCYTE ABSOLUTE 0.47 0.10 - 1.30 K/uL 05/31/2017 4:07 PM CDT [facility] EOSINOPHIL ABSOLUTE 0.05 0.00 - 0.70 K/uL 05/31/2017 4:07 PM CDT [facility] BASOPHILS ABSOLUTE 0.02 0.00 - 0.20 K/uL 05/31/2017 4:07 PM CDT [facility] IMMATURE GRANULOCYTES ABSOLUTE 0.02 0.00 - 0.03 K/uL 05/31/2017 4:07 PM CDT [facility] [facility] Blood Venipuncture / Unknown 05/31/2017 11:52 AM CDT 05/31/2017 3:26 PM CDT Annalisa Christopher MD HEMATOLOGY ORDERABLE S [facility] [id number] [address] [place] [address] * COMPREHENSIVE METABOLIC PANEL (05/31/2017 11:52 AM CDT) SODIUM 138 136 - 145 mmol/L 05/31/2017 7:50 PM CDT [facility] - [facility] POTASSIUM 4.3 3.5 - 5.0 mmol/L 05/31/2017 7:50 PM [facility] CHLORIDE 102 98 - 107 mmol/L 05/31/2017 7:50 PM [facility] CO2 23 22 - 29 mmol/L 05/31/2017 7:50 PM [facility] CALCIUM 10.0 8.6 - 10.2 mg/dL 05/31/2017 7:50 PM [facility] [facility] BUN 16 6 - 20 mg/dL 05/31/2017 7:50 PM [facility] CREATININE 0.74 0.51 - 0.95 mg/dL 05/31/2017 7:50 PM [facility] GLUCOSE 91 74 - 99 mg/dL 05/31/2017 7:50 PM [employer] TOTAL PROTEIN 7.8 6.7 - 8.6 g/dL 05/31/2017 7:50 PM [facility] ALBUMIN 4.5 3.5 - 5.2 g/dL 05/31/2017 7:50 PM [facility] [facility] BILIRUBIN TOTAL 0.3 0.3 - 1.2 mg/dL 05/31/2017 7:50 PM [facility] ALKALINE PHOSPHATASE 92 35 - 104 U/L 05/31/2017 7:50 PM [employer] AST 25 <33 U/L 05/31/2017 7:50 PM [employer] ALT 26 <34 U/L 05/31/2017 7:50 PM [facility] GFR >60 >=60 mL/min/1.7 3 sq meter 05/31/2017 7:50 PM [facility] [facility] Comment: eGFR [...] 3 sq meter 05/31/2017 7:50 PM CDT [facility] ANION GAP 13 8 - 16 mmol/L 05/31/2017 7:50 PM T [facility] Blood Venipuncture / Unknown 05/31/2017 11:52 AM CDT 05/31/2017 3:26 PM CDT Narrative [facility] - 05/31/2017 7:50 PM CDT Samples containing indocyanine green cause interferences on Total and/or Direct Bilirubin and must not be measured. Annalisa Christopher MD CHEMISTRY ORDERABLES [facility]# [id number] [address] [place] [address] * (ABNORMAL) LIPID PANEL (05/31/2017 11:52 AM CDT) CHOLESTEROL 217(H) <200 mg/dL 05/31/2017 7:50 PM CDT [facility] TRIGLYCERIDE 76 <150 mg/dL 05/31/2017 7:50 PM T [facility] HDL 48 40 - 59 mg/dL 05/31/2017 7:50 PM T [facility] LDL CALCULATED 154(H) <100 mg/dL 05/31/2017 7:50 PM CDT [facility] NON-HDL CHOLESTEROL 169(H) <130 mg/dL 05/31/2017 7:50 PM T [facility] Blood Venipuncture / Unknown 05/31/2017 11:52 AM CDT 05/31/2017 3:26 PM CDT Narrative [facility] - 05/31/2017 7:50 PM CDT TOTAL CHOLESTEROL [...] Christopher MD CHEMISTRY ORDERABLES Performing Organization Address City/State/[facility] Co de Phone Number [facility]# [id number] [address] [facility] [place] [address] documented in this encounter Visit Diagnoses Diagnosis Preventative health care- Primary Routine general medical examination at a health care facility Allergic rhinitis due to pollen, unspecified rhinitis seasonality documented in this encounter Additional Health Concerns Assessment Noted Time PHQ-9 Depression Total Score: 1 06/06/20 16 9:00 AM CDT documented as of this encounter Care Teams Assurance Senior Relationship Specialty Start Date End Date Annalisa Christopher MD [address] [place] [address] PCP - General 07/07/08 documented as of this encounter
--- OUTSIDE RECORDS SUMMARY | 2024-10-06 18:46 | XMS_ITS | Encounter Summary ---
Author Organization [facility] Address [address] [place] [address] Care Team Providers Care Marine Photographer Name Role Phone Annalisa Christopher MD Primary Care Provider [phone] Reason for Visit * Reason Onset Date Comments Sinus Infection 11/09/2016 Encounter Details Date Type Department Care Team (Late st Contact Info) Description 11/09/2016 Telephone [facility] Primary Care - [address] [place] [address] Annalisa Christopher MD [address] [place] [address] [address] [place] [address] Sinus Infection Social History Tobacco [...] - Tiana Brothers - 11/09/2016 10:28 AM GAS JOCKEY Spoke with pt JOCKEY * Telephone Encounter - Annalisa Christopher MD - 11/09/2016 9:21 AM CST Amox sent JOCKEY * Telephone Encounter - Kathleen Harmon - 11/09/2016 9:17 AM CST Yellow green drainage Congestion Headache Ear discomfort No fever Cough at night, at times productive yellow Sx x 1wk Taking tylenol sinus and cold--only helps with headache Asking for rx? JOCKEY documented in this encounter Plan of Treatment Upcoming Encounters Date Type Department Care Team (Late st Contact Info) Description 04/25/2025 8:20 AM CDT Office Visit [facility] Primary Care - [facility] [address] [facility] [address] [place] [address] Annalisa Christopher MD [address] [facility] [address] [place] [address] documented as of this encounter Visit Diagnoses Not on filedocumented in this encounter Additional Health Concerns Assessment Noted Time PHQ-9 Depression Total Score: 1 06/06/20 16 9:00 AM CDT documented as of this encounter Care Teams Marine Photographer Relationship Specialty Start Date End Date Annalisa Christopher MD [address] [facility] [address] [place] [address] PCP - General 07/07/08 documented as of this encounter
--- OUTSIDE RECORDS SUMMARY | 2024-10-06 18:46 | XMS_ITS | Encounter Summary ---
Author Organization [facility] Address [address] [place] [address] Care Team Providers Care Fraternity Adviser Name Role Phone Annalisa Christopher MD Primary Care Provider [phone] Reason for Visit * Reason Comments Medication Refill Encounter Details Date Type Department Care Team (Late st Contact Info) Description 03/06/2018 Refill [facility] [address] [place] [address] [address] [place] [address] Mery Villanueva, [facility] [address] [facility] [address] [place] [address] Cough Social History Tobacco Use [...] Description 04/25/2025 8:20 AM CDT Office Visit [facility] [address] [facility] [address] [place] [address] Annalisa Christopher MD [address] [place] [address] [address] [place] [address] documented as of this encounter Visit Diagnoses Diagnosis Cough documented in this encounter Additional Health Concerns Assessment Noted Time PHQ-9 Depression Total Score: 1 06/06/20 16 9:00 AM CDT documented as of this encounter Care Teams Fraternity Adviser Relationship Specialty Start Date End Date Annalisa Christopher MD [address] [place] [address] PCP - General 07/07/08 documented as of this encounter
--- OUTSIDE RECORDS SUMMARY | 2024-10-06 18:46 | XMS_ITS | Encounter Summary ---
Author Organization [facility] Address [address] [place] [address] Care Team Providers Care Theatrical Performer Name Role Phone Annalisa Christopher MD Primary Care Provider [phone] Reason for Visit * Reason Onset Date Comments Medication Review 01/13/2017 Encounter Details Date Type Department Care Team (Late st Contact Info) Description 01/13/2017 Telephone [facility] Primary Care - [address] [place] [address] Annalisa Christopher MD [address] [place] [address] [address] [place] [address] Medication Review Social History Tobacco [...] Office Visit [facility] Primary Care - [facility] [address] [facility] [address] [place] [address] Annalisa Christopher MD [address] [place] [address] [place] [address] documented as of this encounter Visit Diagnoses Not on filedocumented in this encounter Additional Health Concerns Assessment Noted Time PHQ-9 Depression Total Score: 1 06/06/20 16 9:00 AM CDT documented as of this encounter Care Teams Theatrical Performer Relationship Specialty Start Date End Date Annalisa Christopher MD [address] [facility] [address] [place] [address] PCP - General 07/07/08 documented as of this encounter
--- OUTSIDE RECORDS SUMMARY | 2024-10-06 18:46 | XMS_ITS | Encounter Summary ---
Author Organization [facility] Address [address] [place] [address] Care Team Providers Care Operation Shift Supervisor Name Role Phone Annalisa Christopher MD Primary Care Provider [phone] Reason for Visit * Reason Comments Cough Cough Pineda Cuadra RN 07/28/16 0948 * Auth/Cert Specialty Diagnoses / Procedures Referred By Contaviva t Referred To Contact Urgent Care Diagnoses COUGH,HEADACHE,EAR PRESSURE [facility] [address] [address] Referral ID Status Reason Start Date Expiration Date Visits Re quested Visits Authorized [id number] 1 1 Encounter Details Date Type Department Care Team (Late st Contact Info) Description 07/28/2016 9:20 AM CDT Office Visit [address] [address] Celeste Sidhu MD [address] [place] [address] Acute recurrent maxillary sinusitis (Primary [...] by mouth. ??? fluticasone (FLONASE) 50 mcg/spray [place], Suspension SPRAY TWICE IN EACH NOSTRIL EVERY [...] from the original note were not included. [employer]. Sinusitis: Care Instructions Your Care Instructions Sinusitis [...] for yourself at home? ?? Take an zvmd-fhz-ogqqzxs pain medicine, such as acetaminophen (Tylenol), ibuprofen (Advil, Motrin), or naproxen (Aleve). Read and follow all instructions on the label. ?? If the doctor prescribed antibiotics, take them as directed. Do not stop taking them just because you feel better. You need to take the full course of antibiotics. ?? Be careful when taking ovwk-nhb-mmxkrjw cold or flu medicines and Tylenol at [...] Where can you learn more? Go to https://www.[employer].net/patientEd. Enter I933 in the search box to learn more about Sinusitis: Care Instructions. Current as of: August 14, 2015 Content Version: 11.0 ?? [id number] [employer]. Care instructions adapted under license by your healthcare professional. If you have questions about a medical condition or this instruction, always ask your healthcare professional. These instructions may not represent the values of this healthcare organization. [employer] disclaims any warranty or liability for your use of this information. documented in this encounter Plan of Treatment Upcoming Encounters Date Type Department Care Team (Late st Contact Info) Description 04/25/2025 8:20 AM CDT Office Visit [facility] Primary Care - [facility] [address] [facility] [address] [place] [address] Annalisa Christopher MD [address] [place] [address] [place] [address] documented as of this encounter Visit Diagnoses Diagnosis Acute recurrent maxillary sinusitis- Primary Acute maxillary sinusitis documented in this encounter Additional Health Concerns Assessment Noted Time PHQ-9 Depression Total Score: 1 06/06/20 16 9:00 AM CDT documented as of this encounter Care Teams Operation Shift Supervisor Relationship Specialty Start Date End Date Annalisa Christopher MD [address] [facility] [address] [place] [address] PCP - General 07/07/08 documented as of this encounter
--- OUTSIDE RECORDS SUMMARY | 2024-10-06 18:46 | XMS_ITS | Encounter Summary ---
Author Organization [facility] Address [address] [place] [address] Care Team Providers Care Surgical Resident Name Role Phone Annalisa Christopher MD Primary Care Provider [phone] Encounter Details Date Type Department Care Team (Late st Contact Info) Description 08/17/2016 Abstract [facility] - [address] [place] [address] Annalisa Christopher MD [address] [place] [address] [address] [place] [address] Social History Tobacco Use Types [...] 8:20 AM CDT Office Visit [facility] - [facility] [address] [place] [address] [address] [place] [address] Annalisa Christopher MD [address] [place] [address] [address] [place] [address] documented as of this encounter Visit Diagnoses Not on filedocumented in this encounter Additional Health Concerns Assessment Noted Time PHQ-9 Depression Total Score: 1 06/06/20 16 9:00 AM CDT documented as of this encounter Care Teams Surgical Resident Relationship Specialty Start Date End Date Annalisa Christopher MD [address] [place] [address] PCP - General 07/07/08 documented as of this encounter
--- OUTSIDE RECORDS SUMMARY | 2024-10-06 18:46 | XMS_ITS | Encounter Summary ---
Author Organization [facility] Address [address] [place] [address] Care Team Providers Care Punch Machine Operator Name Role Phone Annalisa Christopher MD Primary Care Provider [phone] Reason for Visit * Reason Comments Physical Encounter Details Date Type Department Care Team (Late st Contact Info) Description 06/06/2016 9:00 AM CDT Office Visit [facility] Primary Care - [address] [place] [address] Annalisa Christopher MD [address] [place] [address] [address] [place] [address] Preventative health care (Primary Dx); [...] Description 04/25/2025 8:20 AM CDT Office Visit [facility] Care - [address] [place] [address] Annalisa Christopher MD [address] [place] [address] [address] [place] [address] documented as of this encounter [...] - 6.0 % 06/06/2016 4:43 PM CDT [facility] [employer] [facility] Comment:Note: Effective as o f 10/16/2015 a new methodology, Turbidimetric inhibition immunoassay (TINIA),has been implemented. EST. AVG GLUCOSE, A1C 108 mg/dL 06/06/2016 4:43 PM CDT [facility] [employer] [facility] Blood Collection / Unknown 06/06/2016 9:39 AM CDT 06/06/2016 3:34 PM CDT Annalisa Christopher MD CHEMISTRY ORDERABLES [facility] [employer] [facility] CLIA# [id number] [address] [place] [address] * VITAMIN D 25 HYDROXY (06/06/2016 9:39 AM CDT) VITAMIN D TOTAL (25OH) 37 30 - 100 ng/ml 06/06/2016 5:08 PM CDT [facility] Blood Collection / Unknown 06/06/2016 9:39 AM CDT 06/06/2016 3:34 PM CDT Narrative [facility]OR[facility]ORY SERVICES - [facility] - 06/06/2016 5:08 PM CDT Interpretive Data Chart: Deficient: 0 - 20 ng/ml Insufficient: 21 - 29 ng/ml Sufficient: 30 - 100 ng/ml Increased Risk of Hypercalciuria: >100 ng/ml Toxic: >150 ng/ml Annalisa Christopher MD CHEMISTRY ORDERABLES [facility] CLTN# [id number] [address] [place] [address] * TSH (06/06/2016 9:39 AM CDT) Pathologist [facility] TSH 0.66 0.27 - 4.20 uIU/mL 06/06/2016 5:27 PM CDT [facility] Blood Collection / Unknown 06/06/2016 9:39 AM CDT 06/06/2016 3:34 PM CDT Annalisa Christopher MD CHEMISTRY ORDERABLES Performing Organization Address City/[facility]/ZIP Co de Phone Number [facility] [employer] [facility]# [id number] [address] [place] [address] * (ABNORMAL) CBC WITH DIFFERENTIAL (06/06/2016 9:39 AM CDT) WBC 5.5 4.0 - 9.8 K/uL 06/06/2016 4:12 PM CDT [facility] RBC 4.90 3.90 - 4.90 M/uL 06/06/2016 4:12 PM CDT [facility] HEMOGLOBIN 14.6 11.8 - 14.8 g/dL 06/06/2016 4:12 PM CDT [facility] HEMATOCRIT 44.5(H) 35.5 - 44.0 % 06/06/2016 4:12 PM CDT [facility] - [facility] MCV 90.8 82.0 - 99.0 fL 06/06/2016 4:12 PM CDT [facility] - [facility] MCH 29.8 27.2 - 32.6 pg 06/06/2016 4:12 PM CDT [facility] - [facility] MCHC 32.8 31.5 - 35.5 g/dL 06/06/2016 4:12 PM CDT [facility] - [facility] RDW 12.2 11.5 - 14.5 % 06/06/2016 4:12 PM CDT [facility] - [facility] RDW-STDEV 40.6 37.1 - 48.7 fL 06/06/2016 4:12 PM CDT [facility] - [facility] PLATELETS 247 140 - 350 K/uL 06/06/2016 4:12 PM CDT [facility] - [facility] MPV 10.5 9.3 - 12.4 fL 06/06/2016 4:12 PM CDT [facility] - [facility] NEUTROPHILS 60 % 06/06/2016 4:12 PM CDT [facility] - [facility] LYMPHOCYTES 30 % 06/06/2016 4:12 PM CDT [facility] - [facility] MONOCYTES 8 % 06/06/2016 4:12 PM CDT [facility] - [facility] EOSINOPHILS 1 % 06/06/2016 4:12 PM CDT [facility] - [facility] BASOPHILS 0 % 06/06/2016 4:12 PM CDT [facility] - [facility] NEUTROPHIL ABSOLUTE 3.31 1.90 - 7.00 K/uL 06/06/2016 4:12 PM CDT [facility] - [facility] LYMPHOCYTE ABSOLUTE 1.67 0.70 - 4.50 K/uL 06/06/2016 4:12 PM CDT [facility] - [facility] MONOCYTE ABSOLUTE 0.44 0.10 - 1.30 K/uL 06/06/2016 4:12 PM CDT [facility] - [facility] EOSINOPHIL ABSOLUTE 0.05 0.00 - 0.70 K/uL 06/06/2016 4:12 PM CDT [facility] BASOPHILS ABSOLUTE 0.02 0.00 - 0.20 K/uL 06/06/2016 4:12 PM CDT [facility]ORATORY SERVICES - [facility] IMMATURE GRANULOCYTES 1 % 06/06/2016 4:12 PM CDT [facility]ORY SERVICES - [facility] Comment:IG (Immature Granulo cyte) count includes Metamyelocytes, Myelocytes, and Promyelocytes IMMATURE GRANULOCYTES ABSOLUTE 0.03 0.00 - 0.03 K/uL 06/06/2016 4:12 PM CDT [facility] LABORATORY SERVICES [facility] Blood Collection / Unknown 06/06/2016 9:39 AM CDT 06/06/2016 3:34 PM CDT Annalisa Christopher MD HEMATOLOGY ORDERABLE S [facility] LABORATORY SERVICES [facility]# [id number] [address] [facility] [place] [address] * (ABNORMAL) COMPREHENSIVE METABOLIC PANEL (06/06/2016 9:39 AM CDT) SODIUM 140 136 - 145 mmol/L 06/06/2016 5:13 PM CDT [facility] LABORATORY SERVICES [facility] POTASSIUM 5.2(H) 3.5 - 5.0 mmol/L 06/06/2016 5:13 PM CDT [facility]OR[facility]ORY SERVICES [facility] Comment: No significant hemolysis. CHLORIDE 103 98 - 107 mmol/L 06/06/2016 5:13 PM CDT [facility] LABORATORY SERVICES [facility] CO2 20(L) 22 - 29 mmol/L 06/06/2016 5:13 PM CDT [facility]ORATORY SERVICES [facility] CALCIUM 9.5 8.6 - 10.2 mg/dL 06/06/2016 5:13 PM CDT [facility] LABORATORY SERVICES - [facility] BUN 12 6 - 20 mg/dL 06/06/2016 5:13 PM CDT [facility] LABORATORY SERVICES - [facility] CREATININE 0.76 0.51 - 0.95 mg/dL 06/06/2016 5:13 PM CDT [facility] LABORATORY SERVICES [facility] GLUCOSE 97 74 - 99 mg/dL 06/06/2016 5:13 PM CDT [facility] TOTAL PROTEIN 7.4 6.7 - 8.6 g/dL 06/06/2016 5:13 PM T [facility] LABORATORY SERVICES - [facility] ALBUMIN 4.5 3.5 - 5.2 g/dL 06/06/2016 5:13 PM [facility] LABORATORY SERVICES - [facility] BILIRUBIN TOTAL 0.3 0.3 - 1.2 mg/dL 06/06/2016 5:13 PM T [facility] LABORATORY SERVICES - [facility] ALKALINE PHOSPHATASE 73 35 - 104 U/L 06/06/2016 5:13 PM T [facility]ORY SERVICES - [facility] AST 21 <33 U/L 06/06/2016 5:13 PM T [facility]ORY [facility] ALT 25 <34 U/L 06/06/2016 5:13 PM [facility] LABORATORY [facility] . [facility] GFR >60 >=60 mL/min/1.7 3 sq meter 06/06/2016 5:13 PM [facility] LABORATORY SERVICES - [facility] Comment: eGFR has not been [...] 3 sq meter 06/06/2016 5:13 PM T [facility] LABORATORY SERVICES - [facility] ANION GAP 17(H) 8 - 16 mmol/L 06/06/2016 5:13 PM [facility] LABORATORY SERVICES - [facility] Blood Collection / Unknown 06/06/2016 9:39 AM CDT 06/06/2016 3:34 PM CDT Annalisa Christopher MD CHEMISTRY ORDERABLES [facility] LABORATORY SERVICES [facility] CLIA# [id number] [address] [place] [address] * (ABNORMAL) LIPID PANEL (06/06/2016 9:39 AM CDT) CHOLESTEROL 199 <200 mg/dL 06/06/2016 5:03 PM CDT [facility] [employer] [facility] TRIGLYCERIDE 55 <150 mg/dL 06/06/2016 5:03 PM T [facility] [employer] [facility] HDL 55 40 - 59 mg/dL 06/06/2016 5:03 PM T [facility] [employer] [facility] LDL CALCULATED 133(H) <100 mg/dL 06/06/2016 5:03 PM T [facility] [employer] [facility] NON-HDL CHOLESTEROL 144(H) <130 mg/dL 06/06/2016 5:03 PM T [facility] [employer] [facility] Blood Collection / Unknown 06/06/2016 9:39 AM CDT 06/06/2016 3:34 PM CDT Narrative [facility] - 06/06/2016 5:03 PM CDT TOTAL CHOLESTEROL [...] Panels (NCEP/AMA) Annalisa Christopher MD CHEMISTRY ORDERABLES [facility] [employer] [facility]# [id number] [address] [place] [address] documented in this encounter Visit Diagnoses Diagnosis Preventative health care- Primary Routine general medical examination at a health care facility PTSD (post-traumatic stress disorder) Posttraumatic stress disorder Allergic rhinitis due to pollen documented in this encounter Additional Health Concerns Assessment Noted Time PHQ-9 Depression Total Score: 1 06/06/20 16 9:00 AM CDT documented as of this encounter Care Teams Punch Machine Operator Relationship Specialty Start Date End Date Annalisa Christopher MD [address] [place] [address] PCP - General 07/07/08 documented as of this encounter
--- OUTSIDE RECORDS SUMMARY | 2024-10-06 18:46 | XMS_ITS | Encounter Summary ---
Author Organization [facility] Address [address] [place] [address] Care Team Providers Care Mathematics Education Professor Name Role Phone Annalisa Christopher MD Primary Care Provider [phone] Reason for Visit * Auth/Cert Specialty Diagnoses / Procedures Referred By Contac t Referred To Contact Laboratory [facility] [place] [address] [place] [address] Referral ID Status Reason Start Date Expiration Date Visits Re quested Visits Authorized [id number] 1 1 Encounter Details Date Type Department Care Team (Latest Contact Info) Description 10/31/2018 10:35 AM [facility] - 10/31/2018 11:59 PM [facility] Hospital Encounter [facility] Laboratory Services [place] [address] [place] [address] Annalisa Christopher MD [address] [place] [address] [address] [place] [address] Discharge Disposition: Home or Self [...] Date End Date fluticasone (FLONASE) 50 mcg/spray [place], Suspension Administer 2 Sprays in each nostril [...] Visit [facility] Primary Care - [address] [place] [address] Annalisa Christopher MD [address] [place] [address] [place] [address] documented as of this encounter Procedures Procedure Name Priority Date/Time Associated Diagnosis Comments CBC WITH DIFFERENTIAL Routine 10/31/2018 10:52 AM [facility] Preventative health care VITAMIN D 25 HYDROXY Routine 10/31/2018 10:52 AM [facility] Preventative health care URINALYSIS W/REFLEX MICROSCOPIC Routine 10/31/2018 10:52 AM [facility] Preventative health care TSH Routine 10/31/2018 10:52 AM [facility] Preventative health care HEMOGLOBIN A1C Routine 10/31/2018 10:52 AM [facility] Preventative health care LIPID PANEL Routine 10/31/2018 10:52 AM [facility] Preventative health care COMPREHENSIVE METABOLIC PANEL Routine 10/31/2018 10:52 AM [facility] Preventative health care documented in this encounter Results * (ABNORMAL) URINALYSIS WITH REFLEX MICROSCOPIC (10/31/2018 10:52 AM [facility]) COLOR UA Yellow Pale to Dark Yellow 10/31/2018 1:54 PM [facility] SERVICES - [facility] CLARITY UA Clear Clear 10/31/2018 1:54 PM [facility] - [facility] SPECIFIC GRAVITY UA 1.013 1.003 - 1.035 10/31/2018 1:54 PM [facility] - [facility] PH UA 6.0 5.0 - 8.0 10/31/2018 1:54 PM [facility] - [facility] LEUKOCYTE ESTERASE UA Negative Negative 10/31/2018 1:54 PM [facility] - [facility] NITRITE UA Negative Negative 10/31/2018 1:54 PM [facility] - [facility] PROTEIN UA Negative Negative 10/31/2018 1:54 PM [facility] - [facility] GLUCOSE UA Negative Negative 10/31/2018 1:54 PM [facility] - [facility] KETONES UA Negative Negative 10/31/2018 1:54 PM [facility] - [facility] UROBILINOGEN UA Normal <2.0 mg/dL 9 1:54 PM [facility] - [facility] BILIRUBIN UA Negative Negative 10/31/2018 1:54 PM [facility] - [facility] BLOOD UA 1+(A) Negative 10/31/2018 1:54 PM [facility] - [facility] WBC UA 0-2 0 - 2 /hpf 10/31/2018 1:54 PM [facility] SERVICES - . [facility] RBC UA 0-2 0 - 2 /hpf 10/31/2018 1:54 PM [facility] SERVICES - . [facility] BACTERIA UA Negative Negative /hpf 10/31/2018 1:54 PM [facility] - [facility] Urine URINE SPECIMEN OBTAINED BY CLEAN CATCH PROCEDURE / Unknown Collection / Unknown 10/31/2018 10:52 AM [facility] 10/31/2018 11:20 AM [facility] Annalisa Christopher MD URINE ORDERABLES Performing Organization Address [facility] de Phone Number [facility] [employer] [facility]# [id number] [address] [place] [address] * HEMOGLOBIN A1C (10/31/2018 10:52 AM [facility]) HEMOGLOBIN A1C 5.4 <5.7 % 10/31/2018 5:13 PM [facility] [employer] [facility] EST. AVG GLUCOSE, A1C 108 mg/dL 10/31/2018 5:13 PM [facility] [employer] [facility] Blood Venipuncture / Unknown 10/31/2018 10:52 AM [facility] 10/31/2018 10:52 AM [facility] Narrative [facility] [employer] [facility] - 10/31/2018 5:13 PM [facility] HGB A1C INTERPRETATION NORMAL: ? <5.7% PRE-DIABETES: 5.7 - 6.4% DIABETES: ? 6.5% OR GREATER Annalisa Christopher MD CHEMISTRY ORDERABLES Performing Organization Address [facility] de Phone Number [facility] [employer] [facility]# [id number] [address] [place] [address] * VITAMIN D 25 HYDROXY (10/31/2018 10:52 AM [facility]) VITAMIN D TOTAL (25OH) 56 30 - 100 ng/mL 10/31/2018 5:02 PM [facility] [employer] [facility] Blood Venipuncture / Unknown 10/31/2018 10:52 AM [facility] 10/31/2018 10:52 AM [facility] [employer] [facility] [employer] [facility] - 10/31/2018 5:02 PM [facility] Interpretive Data Chart: Deficient: 0 - 20 ng/mL Insufficient: 21 - 29 ng/mL Sufficient: 30 - 100 ng/mL Increased Risk of Hypercalciuria: >100 ng/mL Toxic: >150 ng/mL Annalisa Christopher MD CHEMISTRY ORDERABLES [facility] [employer] [facility]# [id number] [address] [place] [address] * TSH (10/31/2018 10:52 AM [facility]) Pathologist [facility] TSH 0.68 0.27 - 4.20 uIU/mL 10/31/2018 3:47 PM [facility]ATORY SERVICES [facility] Blood Venipuncture / Unknown 10/31/2018 10:52 AM [facility] 10/31/2018 10:52 AM [facility] Annalisa Christopher MD CHEMISTRY ORDERABLES Performing Organization Address City/[facility]/ZIP Co de Phone Number [facility]# [id number] [address] [place] [address] * (ABNORMAL) CBC WITH DIFFERENTIAL (10/31/2018 10:52 AM [facility]) [facility] WBC 5.0 4.0 - 9.8 K/uL 10/31/2018 1:50 PM [facility] SERVICES [facility] RBC 4.90 3.90 - 4.90 M/uL 10/31/2018 1:50 PM [facility] SERVICES [facility] HEMOGLOBIN 14.4 11.8 - 14.8 g/dL 10/31/2018 1:50 PM [facility] SERVICES [facility] HEMATOCRIT 44.5(H) 35.5 - 44.0 % 10/31/2018 1:50 PM [facility] SERVICES [facility] MCV 90.8 82.0 - 99.0 fL 10/31/2018 1:50 PM [facility] - [facility] MCH 29.4 27.2 - 32.6 pg 10/31/2018 1:50 PM [facility] - [facility] MCHC 32.4 31.5 - 35.5 g/dL 10/31/2018 1:50 PM [facility] RDW 12.3 11.5 - 14.5 % 10/31/2018 1:50 PM [employer] LAB[facility]ATORY SERVICES - [facility] RDW-STDEV 41.3 37.1 - 48.7 fL 10/31/2018 1:50 PM [facility] - [facility] PLATELETS 275 140 - 350 K/uL 10/31/2018 1:50 PM [employer] [facility] - [facility] MPV 9.6 9.3 - 12.4 fL 10/31/2018 1:50 PM [employer] [facility] - [facility] NEUTROPHILS 51 % 10/31/2018 1:50 PM [employer] [facility] LYMPHOCYTES 38 % 10/31/2018 1:50 PM [employer] [facility] MONOCYTES 8 % 10/31/2018 1:50 PM [employer] [facility] EOSINOPHILS 2 % 10/31/2018 1:50 PM [employer] [facility] BASOPHILS 1 % 10/31/2018 1:50 PM [employer] [facility] IMMATURE GRANULOCYTES 0 % 10/31/2018 1:50 PM [employer] [facility] - [facility] NEUTROPHIL ABSOLUTE 2.55 1.90 - 7.00 K/uL 10/31/2018 1:50 PM [employer] [facility] - [facility] LYMPHOCYTE ABSOLUTE 1.92 0.70 - 4.50 K/uL 10/31/2018 1:50 PM [employer] [facility] - [facility] MONOCYTE ABSOLUTE 0.42 0.10 - 1.30 K/uL 10/31/2018 1:50 PM [employer] [facility] - [facility] EOSINOPHIL ABSOLUTE 0.09 0.00 - 0.70 K/uL 10/31/2018 1:50 PM [employer] [facility] - [facility] BASOPHILS ABSOLUTE 0.03 0.00 - 0.20 K/uL 10/31/2018 1:50 PM [employer] [facility] - [facility] IMMATURE GRANULOCYTES ABSOLUTE 0.01 0.00 - 0.03 K/uL 10/31/2018 1:50 PM [employer] [facility] - [facility] Blood Venipuncture / Unknown 10/31/2018 10:52 AM [facility] 10/31/2018 10:52 AM [facility] Annalisa Christopher MD HEMATOLOGY ORDERABLE S [facility] LABORATORY SERVICES - [facility] CLIA# [id number] [address] [place] [place] [address] * (ABNORMAL) COMPREHENSIVE METABOLIC PANEL (10/31/2018 10:52 AM [facility]) SODIUM 138 136 - 145 mmol/L 10/31/2018 3:42 PM [facility] [employer] LABORATORY SERVICES - [facility] POTASSIUM 4.3 3.5 - 5.0 mmol/L 10/31/2018 3:42 PM [facility] LAB[facility]ATORY SERVICES - [facility] CHLORIDE 103 98 - 107 mmol/L 10/31/2018 3:42 PM [facility] - [facility] CO2 23 22 - 29 mmol/L 10/31/2018 3:42 PM [facility] LABORATORY SERVICES - [facility] CALCIUM 9.6 8.6 - 10.2 mg/dL 10/31/2018 3:42 PM [facility] LABORATORY SERVICES - [facility] BUN 10 6 - 20 mg/dL 10/31/2018 3:42 PM [facility] LABORATORY SERVICES - [facility] CREATININE 0.73 0.51 - 0.95 mg/dL 10/31/2018 3:42 PM [facility] [employer] [facility]ATORY [facility] - [facility] GLUCOSE 93 74 - 99 mg/dL 10/31/2018 3:42 PM [facility] LABORATORY SERVICES - [facility] TOTAL PROTEIN 6.9 6.7 - 8.6 g/dL 10/31/2018 3:42 PM [facility] LABORATORY SERVICES - [facility] ALBUMIN 4.3 3.5 - 5.2 g/dL 10/31/2018 3:42 PM [facility] [employer] LABORATORY SERVICES - [facility] BILIRUBIN TOTAL 0.4 0.3 - 1.2 mg/dL 10/31/2018 3:42 PM [facility] [employer] LAB[facility]ATORY [facility] - [facility] ALKALINE PHOSPHATASE 95 35 - 104 U/L 10/31/2018 3:42 PM [facility] LABORATORY SERVICES - [facility] AST 36(H) <33 U/L 10/31/2018 3:[address] [email or web address] LAB[facility]ATORY SERVICES - [facility] ALT 63(H) <34 U/L 10/31/2018 3:42 PM [facility] LABORATORY SERVICES - [facility] GFR >60 >=60 mL/min/1.7 3 sq meter 10/31/2018 3:42 PM [facility] [employer] [facility] Comment: eGFR has not been [...] mL/min/1.7 3 sq meter 10/31/2018 3:42 PM [facility] ANION GAP 12 8 - 16 mmol/L 10/31/2018 3:42 PM [facility] Blood Venipuncture / Unknown 10/31/2018 10:52 AM [facility] 10/31/2018 10:52 AM [facility] [employer] [facility] - 10/31/2018 3:42 PM [facility] Samples containing indocyanine green cause interferences on Total and/or Direct Bilirubin and must not be measured. Annalisa Christopher MD CHEMISTRY ORDERABLES [facility]# [id number] [address] [place] [address] * (ABNORMAL) LIPID PANEL (10/31/2018 10:52 AM [facility]) CHOLESTEROL 208(H) <200 mg/dL 10/31/2018 3:42 PM [facility] [employer] [facility] TRIGLYCERIDE 97 <150 mg/dL 10/31/2018 3:42 PM [facility] [employer] [facility] HDL 49 40 - 59 mg/dL 10/31/2018 3:42 PM [facility] LDL CALCULATED 140(H) <100 mg/dL 10/31/2018 3:42 PM [facility] [employer] [facility] NON-HDL CHOLESTEROL 159(H) <130 mg/dL 10/31/2018 3:42 PM [facility] Blood Venipuncture / Unknown 10/31/2018 10:52 AM [facility] 10/31/2018 10:52 AM [facility] Narrative [facility] - 10/31/2018 3:42 PM [facility] TOTAL CHOLESTEROL ??mg/dL ??Desirable <200 ??Borderline high [...] Panels (NCEP/AMA) Annalisa Christopher MD CHEMISTRY ORDERABLES [facility]# [id number] [place] [address] documented in this encounter Visit Diagnoses Diagnosis Preventative health care Routine general medical examination at a health care facility documented in this encounter Additional Health Concerns Assessment Noted Time PHQ-9 Depression Total Score: 1 06/06/20 16 9:00 AM CDT documented as of this encounter Care Teams Mathematics Education Professor Relationship Specialty Start Date End Date Ananlisa Christopher MD [address] [facility] [address] [place] [address] PCP - General 07/07/08 documented as of this encounter
--- OUTSIDE RECORDS SUMMARY | 2024-10-06 18:46 | XMS_ITS | Encounter Summary ---
Author Organization [facility] Address [address] [place] [address] Care Team Providers Care Transportation Consultant Name Role Phone Annalisa Christopher MD Primary Care Provider [phone] Encounter Details Date Type Department Care Team (Late st Contact Info) Description 05/26/2015 Abstract [facility] - [address] [place] [address] Annalisa Christopher MD [address] [place] [address] [address] [place] [address] Social History Tobacco Use Types [...] Description 04/25/2025 8:20 AM CDT Office Visit [facility] [address] [place] [address] [address] [place] [address] Annalisa Christopher MD [address] [place] [address] [address] [place] [address] documented as of this encounter Visit Diagnoses Not on filedocumented in this encounter Care Teams Transportation Consultant Relationship Specialty Start Date End Date Annalisa Christopher MD [address] [facility] [address] [place] [address] PCP - General 07/07/08 documented as of this encounter
--- OUTSIDE RECORDS SUMMARY | 2024-10-06 18:46 | XMS_ITS | Encounter Summary ---
Author Organization [facility] Address [address] [place] [address] Care Team Providers Care Renewable Energy Project Manager Name Role Phone Annalisa Christopher MD Primary Care Provider [phone] Reason for Visit * Reason Onset Date Comments Upper Respiratory Symptoms 11/17/2015 Encounter Details Date Type Department Care Team (Late st Contact Info) Description 11/17/2015 Telephone [facility] Primary Care - [address] [place] [address] Annalisa Christopher MD [address] [place] [address] [address] [place] [address] Upper Respiratory Symptoms Social History [...] call for an appointment if no improvement. [employer] * Telephone Encounter - Annalisa Christopher MD - 11/17/2015 9:28 AM CST Z-elizabeth sent OV if no better [employer] * Telephone Encounter - Emely Cuadra - 11/17/2015 8:44 AM CST Pressure around eyes, drainage, sneezing, green nasal roseline, cough from drainage, no fever Moura, no earache x 2wks Asking for rx Using netti pot Sinus d GRIFFIN 03/05/15 MK [employer] documented in this encounter Plan of Treatment Upcoming Encounters Date Type Department Care Team (Late st Contact Info) Description 04/25/2025 8:20 AM CDT Office Visit [facility] Primary Care - [facility] [address] [facility] [address] [place] [address] Annalisa Christopher MD [address] [facility] [address] [place] [address] documented as of this encounter Visit Diagnoses Not on filedocumented in this encounter Care Teams Renewable Energy Project Manager Relationship Specialty Start Date End Date Annalisa Christopher MD [address] [facility] [address] [place] [address] PCP - General 07/07/08 documented as of this encounter
--- OUTSIDE RECORDS SUMMARY | 2024-10-06 18:46 | XMS_ITS | Encounter Summary ---
Author Organization [employer] [facility] Address [address] [place] [address] Care Team Providers Care Manager Internet Retails Sales Name Role Phone Annalisa Christopher MD Primary Care Provider [phone] Reason for Referral * Eval and Treat (Routine) - Closed Specialty Diagnoses / Procedures Referred By Contac t Referred To Contact Pulmonology Diagnoses STEVE (obstructive sleep apnea) Annalisa Christopher MD [address] [place] [address] Valente Alvarado MD [address] [place] [address] Referral ID Status Reason Start Date Expiration Date V isits Requested Visits Authorized [id number] Closed CRS To Schedule (STL) 03/05/2015 03/05/2016 1 1 * Eval and Treat (Routine) - Closed Specialty Diagnoses / Procedures Referred By Contac t Referred To Contact Audiology Diagnoses Hearing loss, bilateral Annalisa Christopher MD [address] [place] [address] Vandana Velazquez AU.D [address] [place] [address] Referral ID Status Reason Start Date Expiration Date V isits Requested Visits Authorized [id number] Closed CRS To Schedule (STL) 03/09/2015 09/08/2015 1 1 Reason for Visit * Reason Comments Physical Sinus Problem possible Encounter Details Date Type Department Care Team (Late st Contact Info) Description 03/05/2015 9:00 AM CDT Office Visit [facility] Care - [facility] [address] [place] [address] Annalisa Christopher MD [address] [place] [address] Routine general medical examination at [...] Description 04/25/2025 8:20 AM CDT Office Visit [facility] - [facility] [place] [address] [place] [address] Annalisa Christopher MD [address] [place] [address] Scheduled Referrals Name Type Priority [...] CDT Routine general medical examination at a [facility] care facility CBC WITH DIFFERENTIAL Routine 03/05/2015 9:57 AM CDT Routine general medical examination at a [facility] care facility VITAMIN D 25 HYDROXY Routine 03/05/2015 9:57 AM CDT Routine general medical examination at a [facility] care facility TSH Routine 03/05/2015 9:57 AM CDT Routine general medical examination at a [facility] care facility HEMOGLOBIN A1C Routine 03/05/2015 9:57 AM CDT Routine general medical examination at a [facility] care facility LIPID PANEL Routine 03/05/2015 9:57 AM CDT Routine general medical examination at a [facility] care facility COMPREHENSIVE METABOLIC PANEL Routine [...] - 6.1 % 03/05/2015 5:07 PM CDT [facility] EST. AVG GLUCOSE, A1C 105 mg/dL 03/05/2015 5:07 PM CDT [facility] Blood Collection / Unknown 03/05/2015 9:57 AM CDT 03/05/2015 2:14 PM CDT Narrative [facility] - 03/05/2015 5:07 PM CDT Based on the ADAG study equation. Annalisa Christopher MD CHEMISTRY ORDERABLES [facility] [employer] [facility] CLIA# [id number] [address] [place] [address] * VITAMIN D 25 HYDROXY (03/05/2015 9:57 AM CDT) Pathologist [facility] VITAMIN D TOTAL (25OH) 32 ng/ml 03/05/2015 3:36 PM CDT [facility] Comment: Therapy is based on measurement of [...] PM CDT Annalisa Christopher MD CHEMISTRY ORDERABLES [facility] CLIA# [id number] [address] [place] [address] * TSH (03/05/2015 9:57 AM CDT) Pathologist [facility] TSH 0.54 0.27 - 4.20 uIU/mL 03/05/2015 3:33 PM CDT [facility] Blood Collection / Unknown 03/05/2015 9:57 AM CDT 03/05/2015 2:14 PM CDT Annalisa Christopher MD CHEMISTRY ORDERABLES [facility] CLIA# [id number] [address] [place] [address] * (ABNORMAL) CBC WITH DIFFERENTIAL (03/05/2015 9:57 AM CDT) Pathologist [facility] WBC 5.3 4.0 - 9.8 K/uL 03/05/2015 2:36 PM CDT [facility] RBC 4.87 3.90 - 4.90 M/uL 03/05/2015 2:36 PM CDT [facility] HEMOGLOBIN 14.6 11.8 - 14.8 g/dL 03/05/2015 2:36 PM CDT [facility] HEMATOCRIT 44.1(H) 35.5 - 44.0 % 03/05/2015 2:36 PM CDT [facility] MCV 90.6 82.0 - 99.0 fL 03/05/2015 2:36 PM CDT [facility] MCH 30.0 27.2 - 32.6 pg 03/05/2015 2:36 PM CDT [facility] MCHC 33.1 30.0 - 36.0 g/dL 03/05/2015 2:36 PM CDT [facility] RDW 12.7 11.5 - 14.5 % 03/05/2015 2:36 PM CDT [facility] RDW-STDEV 41.7 37.1 - 48.7 fL 03/05/2015 2:36 PM CDT [facility] PLATELETS 236 140 - 350 K/uL 03/05/2015 2:36 PM CDT [facility] MPV 10.5 9.3 - 12.4 fL 03/05/2015 2:36 PM CDT [facility] NEUTROPHILS 58 45 - 70 % 03/05/2015 2:36 PM CDT [facility] LYMPHOCYTES 30 16 - 45 % 03/05/2015 2:36 PM CDT [facility] MONOCYTES 11 3 - 13 % 03/05/2015 2:36 PM CDT [facility] EOSINOPHILS 1 <7 % 03/05/2015 2:36 PM CDT [facility] BASOPHILS 0 <3 % 03/05/2015 2:36 PM CDT [facility] NEUTROPHIL ABSOLUTE 3.06 1.90 - 7.00 K/uL 03/05/2015 2:36 PM CDT [facility] LYMPHOCYTE ABSOLUTE 1.58 0.70 - 4.50 K/uL 03/05/2015 2:36 PM CDT [facility] MONOCYTE ABSOLUTE 0.57 0.10 - 1.30 K/uL 03/05/2015 2:36 PM CDT [facility] EOSINOPHIL ABSOLUTE 0.06 <0.70 K/uL 03/05/2015 2:36 PM CDT [facility] BASOPHILS ABSOLUTE 0.01 <0.30 K/uL 03/05/2015 2:36 PM CDT [facility] Blood Collection / Unknown 03/05/2015 9:57 AM CDT 03/05/2015 2:14 PM CDT Annalisa Christopher MD HEMATOLOGY ORDERABLE S [facility]# [id number] [address] [place] [address] * (ABNORMAL) LIPID PANEL (03/05/2015 9:57 AM CDT) [facility] CHOLESTEROL 168 100 - 199 mg/dL 03/05/2015 3:06 PM CDT [facility] TRIGLYCERIDE 56 10 - 149 mg/dL 03/05/2015 3:06 PM CDT [facility] LAB[facility]AT[facility] HDL 50 40 - 59 mg/dL 03/05/2015 3:06 PM CDT [facility] LDL CALCULATED 107(H) <99 mg/dL 03/05/2015 3:06 PM CDT [facility] SERVICES - . [facility] NON-HDL CHOLESTEROL 118 <130 mg/dL 03/05/2015 3:06 PM CDT [facility] Blood Collection / Unknown 03/05/2015 9:57 AM CDT 03/05/2015 2:14 PM CDT Narrative [facility] - 03/05/2015 [...] AHA/NCEP Guidelines Annalisa Christopher MD CHEMISTRY ORDERABLES [facility] CLWV# [id number] [address] [place] [address] * COMPREHENSIVE METABOLIC PANEL (03/05/2015 9:57 AM CDT) SODIUM 138 136 - 145 mmol/L 03/05/2015 3:06 PM CDT [facility] POTASSIUM 4.7 3.5 - 5.0 mmol/L 03/05/2015 3:06 PM [facility] CHLORIDE 103 98 - 107 mmol/L 03/05/2015 3:06 PM [facility] [employer] CO2 24 22 - 29 mmol/L 03/05/2015 3:06 PM [facility] CALCIUM 9.4 8.6 - 10.2 mg/dL 03/05/2015 3:06 PM [facility] BUN 14 6 - 20 mg/dL 03/05/2015 3:06 PM [facility] CREATININE 0.71 0.51 - 0.95 mg/dL 03/05/2015 3:06 PM [facility] GLUCOSE 93 79 - 99 mg/dL 03/05/2015 3:06 PM [facility] TOTAL PROTEIN 7.1 6.7 - 8.6 g/dL 03/05/2015 3:06 PM [facility] ALBUMIN 4.3 3.5 - 5.2 g/dL 03/05/2015 3:06 PM [facility] BILIRUBIN TOTAL 0.4 0.3 - 1.2 mg/dL 03/05/2015 3:06 PM [facility] ALKALINE PHOSPHATASE 75 35 - 104 U/L 03/05/2015 3:06 PM [facility] AST 25 <33 U/L 03/05/2015 3:06 PM [facility] ALT 30 <34 U/L 03/05/2015 3:06 PM [facility] GFR >60 >=60 mL/min/1.7 3 sq meter 03/05/2015 3:06 PM [facility] Comment: eGFR [...] 3 sq meter 03/05/2015 3:06 PM CDT [facility] ANION GAP 11 8 - 16 mmol/L 03/05/2015 3:06 PM CDT [facility] Blood Collection / Unknown 03/05/2015 9:57 AM CDT 03/05/2015 2:14 PM CDT Annalisa Christopher MD CHEMISTRY ORDERABLES [facility] CLIA# [id number] [address] [place] [address] documented in this encounter Visit Diagnoses Diagnosis Routine general medical examination at a health care facility- Primary Malaise and fatigue Other malaise and fatigue Allergic rhinitis due to pollen STEVE (obstructive sleep apnea) Obstructive sleep apnea (adult) (pediatric) Hearing loss, bilateral documented in this encounter Care Teams Manager Internet Retails Sales Relationship Specialty Start Date End Date Annalisa Christopher MD [address] [place] [address] PCP - General 07/07/08 documented as of this encounter
--- OUTSIDE RECORDS SUMMARY | 2024-10-06 18:46 | XMS_ITS | Encounter Summary ---
Author Organization [facility] Address [address] [place] [address] Care Team Providers Care Appliance Service Supervisor Name Role Phone Annalisa Christopher MD Primary Care Provider [phone] Reason for Visit * Reason Comments Immunization/Injection Encounter Details Date Type Department Care Team (Latest Contact Info) Description 05/26/2015 1:30 PM CDT Clinical Support [address] [place] [address] Nurse, [facility] Screening examination for pulmonary tuberculosis (Primary [...] Description 04/25/2025 8:20 AM CDT Office Visit [address] [place] [address] Annalisa Christopher MD [address] [place] [address] documented as of this encounter Visit Diagnoses Diagnosis Screening examination for pulmonary tuberculosis- Primary documented in this encounter Care Teams Appliance Service Supervisor Relationship Specialty Start Date End Date Annalisa Christopher MD [address] [place] [address] PCP - General 07/07/08 documented as of this encounter
--- OUTSIDE RECORDS SUMMARY | 2024-10-06 18:46 | XMS_ITS | Encounter Summary ---
Author Organization [facility] Address [address] [place] [address] Care Team Providers Care Racing Secretary Name Role Phone Annalisa Christopher MD Primary Care Provider [phone] Reason for Visit * Reason Onset Date Comments Sinus Infection 04/18/2019 Encounter Details Date Type Department Care Team (Late st Contact Info) Description 04/18/2019 Telephone [facility] Primary Care - [address] [place] [address] Annalisa Christopher MD [address] [place] [address] [address] [place] [address] Sinus Infection Social History Tobacco [...] Visit [facility] Primary Care - [facility] [address] [facility] [address] [place] [address] Annalisa Christopher MD [address] [facility] [address] [place] [address] documented as of this encounter Visit Diagnoses Not on filedocumented in this encounter Additional Health Concerns Assessment Noted Time PHQ-9 Depression Total Score: 1 06/06/20 16 9:00 AM CDT documented as of this encounter Care Teams Racing Secretary Relationship Specialty Start Date End Date Annalisa Christopher MD [address] [facility] [address] [place] [address] PCP - General 07/07/08 documented as of this encounter
--- OUTSIDE RECORDS SUMMARY | 2024-10-06 18:46 | XMS_ITS | Encounter Summary ---
Author Organization [facility] Address [address] [place] [address] Care Team Providers Care Porter Sample Case Name Role Phone Annalisa Christopher MD Primary Care Provider [phone] Reason for Visit * Reason Onset Date Comments Sinus Infection 02/22/2019 Encounter Details Date Type Department Care Team (Late st Contact Info) Description 02/22/[address] [facility] Primary Care - [address] [place] [address] Annalisa Christopher MD [address] [place] [address] [address] [place] [address] Sinus Infection Social History Tobacco [...] [facility] Primary Care - [facility] [address] [facility] [address] [place] [address] Annalisa Christopher MD [address] [facility] [address] [place] [address] documented as of this encounter Visit Diagnoses Not on filedocumented in this encounter Additional Health Concerns Assessment Noted Time PHQ-9 Depression Total Score: 1 06/06/20 16 9:00 AM CDT documented as of this encounter Care Teams Porter Sample Case Relationship Specialty Start Date End Date Annalisa Christopher MD [address] [facility] [address] [place] [address] PCP - General 07/07/08 documented as of this encounter
--- OUTSIDE RECORDS SUMMARY | 2024-10-06 18:46 | XMS_ITS | Encounter Summary ---
Author Organization [facility] Address [address] [place] [address] Care Team Providers Care Ammunition Officer Name Role Phone Annalisa Christopher MD Primary Care Provider [phone] Reason for Visit * Reason Onset Date Comments Question 02/17/2017 Encounter Details Date Type Department Care Team (Late st Contact Info) Description 02/17/2017 Telephone [facility] Primary Care - [address] [place] [address] Annalisa Christopher MD [address] [place] [address] [address] [place] [address] Question Social History Tobacco Use [...] per pt request. Please fax order to [facility] that she is wanting to use * Telephone Encounter - Estrellita Perdomo RN - 02/17/2017 10:22 AM CDT Pt would like to proceed with lab tests Her insurance did cover the labs for her children [facility] [place]-- send reqs * Telephone Encounter - Mery Villanueva APRN-BC - 02/17/2017 10:15 AM CDT #1 our allergy panels cover limited amount #2 I have no idea the cost the panels--may be a little pricey and the next treatment would be to introduce allergy shots and only an turf manager can do this. #3 happy to order [...] done. Her insurance does not cover an turf manager. Her daughter recently had a blood allergy test done Asking if this is something you could order for her before she goes through the expense of paying out of pocket for the turf manager. Please Advise. documented in this encounter Plan of Treatment Upcoming Encounters Date Type Department Care Team (Late st Contact Info) Description 04/25/2025 8:20 AM CDT Office Visit [facility] Care - [address] [place] [address] Annalisa Christopher MD [address] [place] [address] [address] [place] [address] Scheduled Orders Name Type Priority Associated Diagnoses Orde r Schedule ALLERGY PANEL, [place] ALLERGENS Lab Routine Allergic rhinitis, unspecified allergic [...] (02/23/2017 8:24 AM CDT) INTERPRETATION See Below [facility] Comment: Specific ?Level of Allergen IGE Class [...] analytical performance characteristics have been determined by [employer]. It has not been cleared or approved by the U.S. Food and Drug Administration. This assay has been validated pursuant to the CLIA regulations and is used for clinical purposes. Test Performed at: [facility] [id number] [place] [address] ??[id number] NELSON FRENCH DO,MPH 02/23/2017 8:24 AM CDT Mery Villanueva BIT GATHERER-BC CHEMISTRY [facility] [address] [place] [address] * ALLERGY PANEL, PERENNIAL ALLERGENS (02/23/2017 8:24 AM CDT) DERMATOPHAGOIDES PTERONYSSINUS IGE <0.10 kU/L [facility] ALLERGEN CLASS 0 [facility] [employer] DERMATOPHAGOIDES FARINAE IGE <0.10 kU/L [facility] DIAGNOSTICS [facility] ALLERGEN CLASS 0 [facility] DIAGNOSTICS [facility] ALLERGEN PENICILLIUM <0.10 kU/L [facility] DIAGNOSTICS [facility] ALLERGEN CLASS 0 [facility] DIAGNOSTICS [facility] CLADOSPORIUM HERBARUM IGE <0.10 kU/L [facility] DIAGNOSTICS [facility] ALLERGEN CLASS 0 [facility] DIAGNOSTICS [facility] A. FUMIGATUS IGE <0.10 kU/L [facility] DIAGNOSTICS [facility] ALLERGEN CLASS 0 [facility] DIAGNOSTICS [facility] ALLERGEN ALTERNARIA <0.10 kU/L [facility] DIAGNOSTICS [facility] ALLERGEN CLASS 0 [facility] ALLERGEN CAT EPITH & DAND <0.10 kU/L [facility] ALLERGEN CLASS 0 [facility] DOG DANDER IGE <0.10 kU/L [facility] ALLERGEN CLASS 0 [facility] COCKROACH IGE <0.10 kU/L [facility] ALLERGEN CLASS 0 [facility] ALLERGEN MAPLE <0.10 kU/L [facility] ALLERGEN CLASS 0 [facility] MOUNTAIN CEDAR IGE <0.10 kU/L [facility] ALLERGEN CLASS 0 [facility] WALNUT TREE IGE <0.10 kU/L [facility] ALLERGEN CLASS 0 [facility] SYCAMORE IGE <0.10 kU/L [facility] ALLERGEN CLASS 0 [facility] COTTONWOOD IGE <0.10 kU/L [facility] ALLERGEN CLASS 0 [facility] WHITE ROGER IGE <0.10 kU/L [facility] ALLERGEN CLASS 0 [facility] ALLERGEN OAK <0.10 kU/L [facility] ALLERGEN CLASS 0 [facility] ELM IGE <0.10 kU/L [facility] ALLERGEN CLASS 0 [facility] HICKORY PECAN TREE IGE <0.10 kU/L [facility] ALLERGEN CLASS 0 [facility] WHITE MULBERRY IGE <0.10 kU/L [facility] ALLERGEN CLASS 0 [facility] ALLERGEN BERMUDA GRASS <0.10 kU/L [facility] ALLERGEN CLASS 0 [facility] ELSA [place] IGE <0.10 kU/L [facility] ALLERGEN CLASS 0 [facility] ALLERGEN RAGWEED <0.10 kU/L [facility] ALLERGEN CLASS 0 [facility] ALLERGEN ROUGH PIGWEED <0.10 kU/L [facility] ALLERGEN CLASS 0 [facility] ALLERGEN MEXICAN THISTLE <0.10 kU/L [facility] ALLERGEN CLASS 0 [facility] ALLERGEN RG ROSS ELDER <0.10 kU/L [facility] ALLERGEN CLASS 0 [facility] ALLERGEN MOUSE URINE PROTEIN IGE <0.10 kU/L [facility] ALLERGEN CLASS 0 [facility] IGE 22 <UC=123 kU/L [facility] Comment: Test Performed at: [facility] [address] [place], [place] ??[id number] NELSON FRENCH DO,MPH 02/23/2017 8:24 AM CDT Mery Villanueva BIT GATHERER-BC CHEMISTRY ORDERA BLES [facility] [address] [place] [address] * ALLERGY PANEL, FOOD (02/23/2017 8:24 AM [...] [facility] Comment: Test Performed at: [facility] [address] [address] [place] ??[phone] NELSON FRENCH DO,MPH Blood 02/23/2017 8:24 AM CDT Mery Villanueva BIT GATHERER-BC CHEMISTRY ORDERA BLES [facility] [address] [place] [address] documented in this encounter Visit Diagnoses Diagnosis Allergic rhinitis, unspecified allergic rhinitis trigger, unspecified rhinitis seasonality- Primary documented in this encounter Additional Health Concerns Assessment Noted Time PHQ-9 Depression Total Score: 1 06/06/20 16 9:00 AM CDT documented as of this encounter Care Teams Ammunition Officer Relationship Specialty Start Date End Date Annalisa Christopher MD [address] [place] [address] PCP - General 07/07/08 documented as of this encounter
--- OUTSIDE RECORDS SUMMARY | 2024-10-06 18:46 | XMS_ITS | Encounter Summary ---
Author Organization [facility] Address [address] [place] [address] Care Team Providers Care Nuclear Equipment Operator Name Role Phone Annalisa Christopher MD Primary Care Provider [phone] Reason for Visit * Reason Onset Date Comments Results 12/22/2015 Encounter Details Date Type Department Care Team (Late st Contact Info) Description 12/22/2015 Telephone [facility] Primary Care - [facility] [address] [place] [address] [address] [place] [address] Annalisa Christopher MD [address] [place] [address] [address] [place] [address] Results Social History Tobacco Use [...] [facility] Primary Care - [facility] [address] [facility] [address] [place] [address] Annalisa Christopher MD [address] [facility] [address] [place] [address] documented as of this encounter Visit Diagnoses Not on filedocumented in this encounter Care Teams Nuclear Equipment Operator Relationship Specialty Start Date End Date Annalisa Christopher MD [address] [facility] [address] [place] [address] PCP - General 07/07/08 documented as of this encounter
--- OUTSIDE RECORDS SUMMARY | 2024-10-06 18:46 | XMS_ITS | Encounter Summary ---
Author Organization [facility] Address [address] [place] [address] Care Team Providers Care Architectural Design Lecturer Name Role Phone Annalisa Christopher MD Primary Care Provider [phone] Reason for Visit * Reason Onset Date Comments Sinus Infection 12/08/2015 Encounter Details Date Type Department Care Team (Late st Contact Info) Description 12/08/2015 Telephone [facility] Primary Care - [address] [place] [address] Annalisa Christopher MD [address] [place] [address] [address] [place] [address] Sinus Infection Social History Tobacco [...] CDT Office Visit [facility] Primary Care - [address] [place] [phone] Annalisa Christopher MD [address] [place] [address] documented as of this encounter Visit Diagnoses Not on filedocumented in this encounter Care Teams Architectural Design Lecturer Relationship Specialty Start Date End Date Annalisa Christopher MD [address] [place] [address] PCP - General 07/07/08 documented as of this encounter
--- OUTSIDE RECORDS SUMMARY | 2024-10-06 18:46 | XMS_ITS | Encounter Summary ---
Author Organization [email or web address] Address [address] [place] [address] Care Team Providers Care Consulting Nurse Name Role Phone Annalisa Christopher MD Primary Care Provider [phone] Reason for Visit * Eval and Treat (Routine) - Closed Specialty Diagnoses / Procedures Referred By Contac t Referred To Contact Audiology Diagnoses Hearing loss, bilateral Annalisa Christopher MD [address] [facility] [address] [place] [address] Vandana Velazquez AU.D [address] [place] [address] Referral ID Status Reason Start Date Expiration Date V isits Requested Visits Authorized [id number] Closed CRS To Schedule (STL) 03/09/2015 09/08/2015 1 1 Encounter Details Date Type Department Care Team (Latest Contact Info) Description 03/19/2015 10:52 AM CDT - 03/19/2015 11:59 PM CDT Hospital Encounter [facility] [place] A [address] [facility] [place] [address] Janine Linda AU.D [address] [facility] [address] [place] [address] Vandana Velazquez AU.D [address] [place] [address] Discharge Disposition: Home or Self Care Social [...] by Intrauterine route. fluticasone (FLONASE) 50 mcg/spray [place], Suspension SPRAY TWICE IN EACH NOSTRIL EVERY [...] 250 Hz through 8000 Hz. A slight eqn-flwg-deu was noted at 4000 Hz. Speech Patient Intake Representative Threshold: RIGHT: 15 dB HL LEFT: 15 [...] was noted at 4000 Hz, bilaterally. Speech computer systems software architect thresholds are normal, bilaterally, and are ingood agreement with frequency specific findings. Fabiana's word recognition ability is excellent, bilaterally. Recommendations: 1) Follow-up with referring physician 2) Audiogram as medically indicated 3) Hearing protection in noise 4) Contact [facility] Audiology with any questions or concerns 389.90 Clinical Rejected Items Clerk [facility] Department of Audiology documented in this encounter Plan of Treatment Upcoming Encounters Date Type Department Care Team (Late st Contact Info) Description 04/25/2025 8:20 AM CDT Office Visit [facility] Primary Care - [address] [place] [phone] Annalisa Christopher MD [address] [place] [address] [place] [address] Scheduled Referrals Name Type Priority Associated Diagnoses Orde r Schedule AMB REFERRAL TO AUDIOLOGY Outpatient Referral Routine Hearing loss, bilateral Ordered: 03/05/2015 documented as of this encounter Visit Diagnoses Not on filedocumented in this encounter Care Teams Consulting Nurse Relationship Specialty Start Date End Date Annalisa Christopher MD [address] [facility] [address] [place] [phone] PCP - General 07/07/08 documented as of this encounter
--- OUTSIDE RECORDS SUMMARY | 2024-10-06 18:46 | XMS_ITS | Encounter Summary ---
Author Organization [facility] Address [address] [place] [address] Care Team Providers Care Asphalt Coater Name Role Phone Annalisa Christopher MD Primary Care Provider [phone] Reason for Visit * Reason Onset Date Comments Wants Appointment 08/24/2018 Encounter Details Date Type Department Care Team (Late st Contact Info) Description 08/24/2018 Telephone [facility] Primary Care - [address] [place] [address] Annalisa Christopher MD [address] [place] [address] [address] [place] [address] Wants Appointment Social History Tobacco [...] and schedule appointment with MK per DEMETRI. TIDIGITATOR * Telephone Encounter - Annalisa Chirstopher MD - 08/24/2018 4:48 PM CST Yes - I can see her ever sooner if needed TIDIGITATOR * Telephone Encounter - Emely Cuadra - 08/24/2018 4:16 PM CST Pt was seen 08/06 for sick visit and didn't get to be seen for pe Asking if can be seen 10/12 or 10/18 for her pe? TIDIGITATOR documented in this encounter Plan of Treatment Upcoming Encounters Date Type Department Care Team (Late st Contact Info) Description 04/25/2025 8:20 AM CDT Office Visit [facility] Primary Care - [facility] [address] [facility] [address] [place] [address] Annalisa Christopher MD [address] [facility] [address] [place] [address] documented as of this encounter Visit Diagnoses Not on filedocumented in this encounter Additional Health Concerns Assessment Noted Time PHQ-9 Depression Total Score: 1 06/06/20 16 9:00 AM CDT documented as of this encounter Care Teams Asphalt Coater Relationship Specialty Start Date End Date Annalisa Christopher MD [address] [facility] [address] [place] [address] PCP - General 07/07/08 documented as of this encounter
--- OUTSIDE RECORDS SUMMARY | 2024-10-06 18:46 | XMS_ITS | Encounter Summary ---
Author Organization [facility] Address [address] [place] [address] Care Team Providers Care Orthopaedic Surgeon Name Role Phone Annalisa Christopher MD Primary Care Provider [phone] Reason for Visit * Reason Comments Medication Refill Encounter Details Date Type Department Care Team (Late st Contact Info) Description 08/22/[address] [place] [address] Annalisa Christopher MD [address] [place] [address] [address] [place] [address] Social History Tobacco Use Types [...] Description 04/25/2025 8:20 AM CDT Office Visit [facility] [address] [place] [address] [address] [place] [address] Annalisa Christopher MD [address] [place] [address] [address] [place] [address] documented as of this encounter Visit Diagnoses Not on filedocumented in this encounter Additional Health Concerns Assessment Noted Time PHQ-9 Depression Total Score: 1 06/06/20 16 9:00 AM CDT documented as of this encounter Care Teams Orthopaedic Surgeon Relationship Specialty Start Date End Date Annalisa Christopher MD [address] [place] [address] PCP - General 07/07/08 documented as of this encounter
--- OUTSIDE RECORDS SUMMARY | 2024-10-06 18:46 | XMS_ITS | Encounter Summary ---
Author Organization [facility] Address [address] [place] [address] Care Team Providers Care Snapper On Name Role Phone Kj Haas MD Primary Care Provider [phone] Reason for Visit * Reason Onset Date Comments Sinus Infection 12/05/2019 Encounter Details Date Type Department Care Team (Late st Contact Info) Description 12/05/2019 Telephone [facility] Primary Care - [address] [place] [address] Kj Haas MD [address] [place] [address] [address] [place] [address] Sinus Infection Social History Tobacco [...] Visit [facility] Care - [facility] [address] [place] [address] [address] [place] [address] Kj Haas MD [address] [place] [phone] documented as of this encounter Visit Diagnoses Not on filedocumented in this encounter Additional Health Concerns Assessment Noted Time PHQ-9 Depression Total Score: 1 06/06/20 16 9:00 AM CDT documented as of this encounter Care Teams Snapper On Relationship Specialty Start Date End Date Kj Haas MD [address] [place] [address] PCP - General 07/07/08 documented as of this encounter
--- OUTSIDE RECORDS SUMMARY | 2024-10-06 18:46 | XMS_ITS | Encounter Summary ---
Author Organization [facility] Address [address] [place] [address] Care Team Providers Care Tin Stacker Name Role Phone Annalisa Christopher MD Primary Care Provider [phone] Reason for Visit * Reason Onset Date Comments Sinus Infection 12/21/2017 Encounter Details Date Type Department Care Team (Late st Contact Info) Description 12/21/2017 Telephone [facility] Primary Care - [address] [place] [address] Annalisa Christopher MD [address] [place] [address] [address] [place] [address] Sinus Infection Social History Tobacco [...] [facility] [address] [facility] [address] [place] [address] Annalisa Christopher MD [address] [facility] [address] [place] [address] documented as of this encounter Visit Diagnoses Not on filedocumented in this encounter Additional Health Concerns Assessment Noted Time PHQ-9 Depression Total Score: 1 06/06/20 16 9:00 AM CDT documented as of this encounter Care Teams Tin Stacker Relationship Specialty Start Date End Date Annalisa Christopher MD [address] [facility] [address] [place] [address] PCP - General 07/07/08 documented as of this encounter
--- OUTSIDE RECORDS SUMMARY | 2024-10-06 18:46 | XMS_ITS | Encounter Summary ---
Author Organization [facility] Address [address] [place] [address] Care Team Providers Care Knitted Garment Finisher Name Role Phone Annalisa Christopher MD Primary Care Provider [phone] Reason for Visit * Reason Onset Date Comments Question 03/02/2017 Encounter Details Date Type Department Care Team (Late st Contact Info) Description 03/02/2017 Telephone [facility] Primary Care - [address] [place] [address] Annalisa Christopher MD [address] [place] [address] [address] [place] [address] Question Social History Tobacco Use [...] 03/02/2017 5:38 PM CDT Pt lives by [facility] and is going to look for director of billing by her. [place] is [place] far for her. * Telephone Encounter - Annalisa Christopher MD - 03/02/2017 5:05 PM CDT Please tell patient that the blood test is just an orientation testing - not complete allergy testing Next step should be drilling field specialist referral for the skin testing and they will ask her to stop her allergy meds prior to that Offer Dr. Carter Allergy referral [address], [place], [place] [id number] [phone] * Telephone Encounter - Kathleen Harmon - 03/02/2017 9:45 AM CDT Pt had allergy panel done Pt said her test came back normal--asking if she should cont with the dymista? Also would the dymista effect this test? documented in this encounter Plan of Treatment Upcoming Encounters Date Type Department Care Team (Late st Contact Info) Description 04/25/2025 8:20 AM CDT Office Visit [facility] Primary Care - [address] [place] [address] Annalisa Christopher MD [address] [place] [address] [place] [address] documented as of this encounter Visit Diagnoses Not on filedocumented in this encounter Additional Health Concerns Assessment Noted Time PHQ-9 Depression Total Score: 1 06/06/20 16 9:00 AM CDT documented as of this encounter Care Teams Knitted Garment Finisher Relationship Specialty Start Date End Date Annalisa Christopher MD [address] [facility] [address] [place] [address] PCP - General 07/07/08 documented as of this encounter
--- OUTSIDE RECORDS SUMMARY | 2024-10-06 18:46 | XMS_ITS | Encounter Summary ---
Author Organization [facility] Address [address] [place] [address] Care Team Providers Care Net Programmer Analyst Name Role Phone Annalisa Christopher MD Primary Care Provider [phone] Reason for Visit * Reason Comments Medication Refill Encounter Details Date Type Department Care Team (Late st Contact Info) Description 05/24/[address] [place] [address] Annalisa Christopher MD [address] [place] [address] [address] [place] [address] Social History Tobacco Use Types [...] Description 04/25/2025 8:20 AM CDT Office Visit [facility] [address] [place] [address] [address] [place] [address] Annalisa Christopher MD [address] [place] [address] [address] [place] [address] documented as of this encounter Visit Diagnoses Not on filedocumented in this encounter Additional Health Concerns Assessment Noted Time PHQ-9 Depression Total Score: 1 06/06/20 16 9:00 AM CDT documented as of this encounter Care Teams Net Programmer Analyst Relationship Specialty Start Date End Date Annalisa Christopher MD [address] [place] [address] PCP - General 07/07/08 documented as of this encounter
--- OUTSIDE RECORDS SUMMARY | 2024-10-06 18:46 | XMS_ITS | Encounter Summary ---
Author Organization [facility] Address [address] [place] [address] Care Team Providers Care Conveyor Line Bakery Worker Name Role Phone Annalisa Christopher MD Primary Care Provider [phone] Reason for Visit * Reason Onset Date Comments Wants Appointment 05/01/2015 Encounter Details Date Type Department Care Team (Late st Contact Info) Description 05/01/2015 Telephone [facility] Primary Care - [address] [place] [address] Annalisa Christopher MD [address] [place] [address] [address] [place] [address] Wants Appointment Social History Tobacco [...] to urgent care * Telephone Encounter - Sanjana Tompkins - 05/01/2015 9:22 AM CDT You [...] Visit [facility] [address] [facility] [address] [place] [address] Annalisa Christopher MD [address] [facility] [address] [place] [address] documented as of this encounter Visit Diagnoses Not on filedocumented in this encounter Care Teams Conveyor Line Bakery Worker Relationship Specialty Start Date End Date Annalisa Christopher MD [address] [facility] [address] [place] [address] PCP - General 07/07/08 documented as of this encounter
--- OUTSIDE RECORDS SUMMARY | 2024-10-06 18:46 | XMS_ITS | Encounter Summary ---
Author Organization [facility] Address [address] [place] [address] Care Team Providers Care Chief Controller Center Name Role Phone Annalisa Christopher MD Primary Care Provider [phone] Reason for Visit * Reason Onset Date Comments Upper Respiratory Symptoms 11/13/2018 Encounter Details Date Type Department Care Team (Late st Contact Info) Description 11/13/2018 Telephone [facility] Primary Care - [address] [place] [address] Annalisa Christopher MD [address] [place] [address] [address] [place] [address] Upper Respiratory Symptoms Social History [...] 11/13/2018 1:20 PM CST Spoke to pt ETING STRATEGIST * Telephone Encounter - Annalisa Christopher MD - 11/13/2018 12:42 PM MARKETING STRATEGIST Tamiflu prescription sent Please inform patient ETING STRATEGIST * Telephone Encounter - Rita Maier - 11/13/2018 11:04 AM CST Pt calling back Just left pediatrics and dtr tested positive for influenza A Was suggested she gets tamiflu ETING STRATEGIST * Telephone Encounter - Rita Maier - 11/13/2018 8:53 AM CST Sinus pressure and pain Cough Yellow mucus Congestion Drainage Little sore throat Sx x couple weeks ago Taking flonase and zyrte ETING STRATEGIST documented in this encounter Plan of Treatment Upcoming Encounters Date Type Department Care Team (Late st Contact Info) Description 04/25/2025 8:20 AM CDT Office Visit [facility] Primary Care - [facility] [address] [facility] [address] [place] [address] Annalisa Christopher MD [address] [facility] [address] [place] [address] documented as of this encounter Visit Diagnoses Not on filedocumented in this encounter Additional Health Concerns Assessment Noted Time PHQ-9 Depression Total Score: 1 06/06/20 16 9:00 AM CDT documented as of this encounter Care Teams Chief Controller Center Relationship Specialty Start Date End Date Annalisa Christopher MD [address] [facility] [address] [place] [address] PCP - General 07/07/08 documented as of this encounter
--- OUTSIDE RECORDS SUMMARY | 2024-10-06 18:46 | XMS_ITS | Encounter Summary ---
Author Organization [facility] Address [address] [place] [address] Care Team Providers Care Pediatric Sports Medicine Specialist Name Role Phone Annalisa Christopher MD Primary Care Provider [phone] Reason for Visit * Reason Comments Physical Sinus Problem cough Encounter Details Date Type Department Care Team (Late st Contact Info) Description 08/06/2018 8:30 AM BEAN SPROUT LABORER Office Visit [facility] Primary Care - [address] [place] [address] Annalisa Christopher MD [address] [place] [address] [place] [address] Acute non-recurrent maxillary sinusitis (Primary Dx); [...] Comments Blood Pressure 122/80 08/06/2018 8:29 AM BEAN SPROUT LABORER Pulse - - Temperature 36.8 ??C (98.2 ??F) 08/06/2018 8:29 AM CS T Respiratory Rate - - Oxygen Saturation - - Inhaled Oxygen Concentration - - Weight 89.8 kg (198 lb) 08/06/2018 8:29 AM BEAN SPROUT LABORER Height 170.2 cm (5' 7 ) 08/06/2018 8:29 AM BEAN SPROUT LABORER Body Mass Index 31.01 08/06/2018 8:29 AM BEAN SPROUT LABORER documented in this encounter Progress Notes * [...] fail to improve as anticipated or worsen. SPROUT LABORER documented in this encounter Plan of Treatment Upcoming Encounters Date Type Department Care Team (Late st Contact Info) Description 04/25/2025 8:20 AM CDT Office Visit [facility] Primary Care - [facility] [address] [facility] [address] [place] [address] Annalisa Christopher MD [address] [facility] [address] [place] [address] documented as of this encounter Visit Diagnoses Diagnosis Acute non-recurrent maxillary sinusitis- Primary Need for influenza vaccination Need for prophylactic vaccination and inoculation against influenza PTSD (post-traumatic stress disorder) Posttraumatic stress disorder documented in this encounter Additional Health Concerns Assessment Noted Time PHQ-9 Depression Total Score: 1 06/06/20 16 9:00 AM CDT documented as of this encounter Care Teams Pediatric Sports Medicine Specialist Relationship Specialty Start Date End Date Annalisa Christopher MD [address] [facility] [address] [place] [address] PCP - General 07/07/08 documented as of this encounter
--- OUTSIDE RECORDS SUMMARY | 2024-10-06 18:46 | XMS_ITS | Encounter Summary ---
Author Organization [facility] Address [address] [place] [address] Care Team Providers Care Snack Bar Attendant Name Role Phone Annalisa Christopher MD Primary Care Provider [phone] Reason for Visit * Reason Comments Medication Refill Encounter Details Date Type Department Care Team (Late st Contact Info) Description 06/29/2018 Telephone [facility] Primary Care - [address] [place] [address] Annalisa Christopher MD [address] [place] [address] [address] [place] [address] Medication Refill Social History Tobacco [...] 8:20 AM CDT Office Visit [facility] Care - [facility] [address] [place] [address] Annalisa Christopher MD [address] [place] [address] documented as of this encounter Visit Diagnoses Not on filedocumented in this encounter Additional Health Concerns Assessment Noted Time PHQ-9 Depression Total Score: 1 06/06/20 16 9:00 AM CDT documented as of this encounter Care Teams Snack Bar Attendant Relationship Specialty Start Date End Date Annalisa Christopher MD [address] [place] [address] PCP - General 07/07/08 documented as of this encounter
--- OUTSIDE RECORDS SUMMARY | 2024-10-06 18:47 | XMS_ITS | Encounter Summary ---
Author Organization [facility] Address [address] [place] [address] Care Team Providers Care Senior Sourcing Manager Name Role Phone Annalisa Christopher MD Primary Care Provider [phone] Encounter Details Date Type Department Care Team (Late st Contact Info) Description 07/13/2012 Abstract [facility] - [address] [place] [address] Annalisa Christopher MD [address] [place] [address] [address] [place] [address] Social History Tobacco Use Types [...] Description 04/25/2025 8:20 AM CDT Office Visit [facility] [address] [place] [address] [address] [place] [address] Annalisa Christopher MD [address] [place] [address] [address] [place] [address] documented as of this encounter Visit Diagnoses Not on filedocumented in this encounter Care Teams Senior Sourcing Manager Relationship Specialty Start Date End Date Annalisa Christopher MD [address] [place] [address] PCP - General 07/07/08 documented as of this encounter
--- OUTSIDE RECORDS SUMMARY | 2024-10-06 18:47 | XMS_ITS | Encounter Summary ---
Author Organization [facility] Address [address] [place] [address] Care Team Providers Care Stencil Maker Name Role Phone Annalisa Christopher MD Primary Care Provider [phone] Reason for Visit * Reason Comments Medication Refill Encounter Details Date Type Department Care Team (Late st Contact Info) Description 11/16/[address] [place] [address] Annalisa Christopher MD [address] [place] [address] [address] [place] [address] Social History Tobacco Use Types [...] 10:04 AM CST L/r 05/28/13 L/ov 09/20/13 LE DISTRIBUTOR documented in this encounter Plan of Treatment Upcoming Encounters Date Type Department Care Team (Late st Contact Info) Description 04/25/2025 8:20 AM CDT Office Visit [facility] [address] [place] [address] Annalisa Christopher MD [address] [place] [address] documented as of this encounter Visit Diagnoses Not on filedocumented in this encounter Care Teams Stencil Maker Relationship Specialty Start Date End Date Annalisa Christopher MD [address] [place] [address] PCP - General 07/07/08 documented as of this encounter
--- OUTSIDE RECORDS SUMMARY | 2024-10-06 18:47 | XMS_ITS | Encounter Summary ---
Author Organization [facility] Address [address] [place] [address] Care Team Providers Care Candy Maker Helper Name Role Phone Annalisa Christopher MD Primary Care Provider [phone] Reason for Visit * Reason Comments Vaginal Bleeding since November 25 Encounter Details Date Type Department Care Team (Late st Contact Info) Description 12/13/2011 11:00 AM CDT Office Visit [facility] TAXI TRUCK DRIVER - Medical [place] [address] [facility] [address] [address] Leslie Lopez NP NO ADDRESS [...] [facility] - [facility] [address] [facility] [address] [place] [address] Annalisa Christopher MD [address] [place] [address] [place] [address] documented as of this encounter Visit Diagnoses Diagnosis Irregular menses- Primary Irregular menstrual cycle documented in this encounter Care Teams Candy Maker Helper Relationship Specialty Start Date End Date Annalisa Christopher MD [address] [facility] [address] [place] [address] PCP - General 07/07/08 documented as of this encounter
--- OUTSIDE RECORDS SUMMARY | 2024-10-06 18:47 | XMS_ITS | Encounter Summary ---
Author Organization [facility] Address [address] [place] [address] Care Team Providers Care Fence Maker Name Role Phone Annalisa Christopher MD Primary Care Provider [phone] Encounter Details Date Type Department Care Team (Late st Contact Info) Description 06/23/2014 Abstract [facility] - [address] [place] [address] Annalisa Christopher MD [address] [place] [address] [address] [place] [address] Social History Tobacco Use Types [...] Description 04/25/2025 8:20 AM CDT Office Visit [facility] [address] [place] [address] [address] [place] [address] Annalisa Christopher MD [address] [place] [address] [address] [place] [address] documented as of this encounter Visit Diagnoses Not on filedocumented in this encounter Care Teams Fence Maker Relationship Specialty Start Date End Date Annalisa Christohper MD [address] [place] [address] PCP - General 07/07/08 documented as of this encounter
--- OUTSIDE RECORDS SUMMARY | 2024-10-06 18:47 | XMS_ITS | Encounter Summary ---
Author Organization [facility] Address [address] [place] [address] Care Team Providers Care Classroom Technology Coach Name Role Phone Annalisa Christopher MD Primary Care Provider [phone] Reason for Visit * Reason Onset Date Comments Contraception 10/11/2011 MIRENA Encounter Details Date Type Department Care Team (Late st Contact Info) Description 10/11/2011 Telephone [facility] MEAT TEAM LEAD - Medical [address] [address] Douglas Patricio MD [address] [place] [address] Contraception (MIRENA) Social History Tobacco Use [...] of her visit. Transferred to appt line. T PROTECTION GUARD * Telephone Encounter - Dahiana Cuadra - 11/07/2011 10:33 AM CST Mirena device arrived in the office. LM for pt to call the office. BILL FOR INSERTION ONLY. T PROTECTION GUARD * Telephone Encounter - Dahiana Cuadra - 10/31/2011 9:54 AM CST Called [facility] to follow up on IUD request. Per Pedro, the IUD is excluded in pts plan. They are in theprocess of contacting her to let her know. T PROTECTION GUARD * Telephone Encounter - Dahiana Cuadra - 10/11/2011 11:47 AM CST Faxed [facility] form to verify benefits. T PROTECTION GUARD documented in this encounter Plan of Treatment Upcoming Encounters Date Type Department Care Team (Late st Contact Info) Description 04/25/2025 8:20 AM CDT Office Visit [facility] Primary Care - [facility] [address] [facility] [address] [place] [address] Annalisa Christopher MD [address] [place] [address] [place] [address] documented as of this encounter Visit Diagnoses Not on filedocumented in this encounter Care Teams Classroom Technology Coach Relationship Specialty Start Date End Date Annalisa Christopher MD [address] [facility] [address] [place] [address] PCP - General 07/07/08 documented as of this encounter
--- OUTSIDE RECORDS SUMMARY | 2024-10-06 18:47 | XMS_ITS | Encounter Summary ---
Author Organization [facility] Address [address] [place] [address] Care Team Providers Care Rodding Machine Tender Name Role Phone Annalisa Christopher MD Primary Care Provider [phone] Reason for Referral * Eval and Treat (Routine) - Closed Specialty Diagnoses / Procedures Referred By Contaviva t Referred To Contact Gastroenterology Diagnoses Rectal bleed Annalisa Christopher MD [address] [place] [address] [address] [place] [address] Avila Landry, DO [address] [address] Referral ID Status Reason Start Date Expiration Date V isits Requested Visits Authorized [id number] Closed CRS To Schedule (STL) 11/09/2011 11/08/2012 3 3 LABELER Reason for Visit * Reason Comments Flank Pain POSSIBLE KIDNEY INFE CTION Rectal Bleeding SINCE 08/31 Encounter Details Date Type Department Care Team (Late st Contact Info) Description 11/09/2011 9:45 AM BOLT LABELER Office Visit [facility] Primary Care - [facility] [address] [place] [address] Annalisa Christopher MD [address] [place] [address] [address] [place] [address] UTI (lower urinary tract infection) [...] Comments Blood Pressure 118/84 11/09/2011 9:47 AM BOLT LABELER Pulse - - Temperature - - Respiratory Rate - - Oxygen Saturation - - Inhaled Oxygen Concentration - - Weight 90.7 kg (200 lb) 11/09/2011 9:47 AM BOLT LABELER Height 170.2 cm (5' 7 ) 11/09/2011 9:47 AM BOLT LABELER Body Mass Index 31.32 11/09/2011 9:47 AM BOLT LABELER documented in this encounter Progress Notes * [...] TO GASTROENTEROLOGY -colonoscopy referral Stool softener, fluids LABELER documented in this encounter Plan of Treatment Upcoming Encounters Date Type Department Care Team (Late st Contact Info) Description 04/25/2025 8:20 AM CDT [facility] Visit [facility] - [address] [place] [address] Annalisa Christopher MD [address] [place] [address] [address] [place] [address] Scheduled Referrals Name Type Priority Associated Diagnoses Order Schedule AMB REFERRAL TO GASTROENTEROLOGY Outpatient Referral Routine Rectal bleed Ordered: 11/09/2011 documented as of this encounter Procedures Procedure Name Priority Date/Time Associated Diagnosis Comments POC URINALYSIS DIPSTICK NON AUTOMATED Routine 11/09/2011 10:00 AM BOLT LABELER Kidney pain documented in this encounter Results * (ABNORMAL) POC URINALYSIS DIPSTICK NON AUTOMATED (11/09/2011 10:00 AM BOLT LABELER) COLOR [facility]A [facility] CLARITY [...] CLINIC Urine specimen (specimen) 11/09/2011 10:00 AM BOLT LABELER Annalisa Christopher MD POINT OF CARE TESTIN [facility] documented in this encounter Visit Diagnoses Diagnosis UTI (lower urinary tract infection)- Primary Urinary tract infection, site not specified Kidney pain Renal colic Rectal bleed Hemorrhage of rectum and anus documented in this encounter Care Teams Rodding Machine Tender Relationship Specialty Start Date End Date Annalisa Christopher MD [address] [facility] [address] [place] [address] PCP - General 07/07/08 documented as of this encounter
--- OUTSIDE RECORDS SUMMARY | 2024-10-06 18:47 | XMS_ITS | Encounter Summary ---
Author Organization [facility] Address [address] [place] [address] Care Team Providers Care Home Office Representative Name Role Phone Annalisa Christopher MD Primary Care Provider [phone] Reason for Visit * Reason Comments Sore Throat pt. c/o sore throat x 3days Sinus Pain pt. c/o sinus pain a nd pressure Nasal Congestion Encounter Details Date Type Department Care Team (Late st Contact Info) Description 08/08/2012 1:15 PM SECOND COOK AND BAKER Office Visit [facility] Primary Care - [address] [place] [address] Annalisa Christopher MD [address] [place] [address] [place] [address] Acute sinusitis (Primary Dx); Sore throat Social History Tobacco [...] Reading Time Taken Comments Blood Pressure 118/78 08/08/2012 1:27 PM SECOND COOK AND BAKER Pulse - - Temperature - - Respiratory Rate - - Oxygen Saturation - - Inhaled Oxygen Concentration - - Weight 84.8 kg (187 lb) 08/08/2012 1:27 PM SECOND COOK AND BAKER Height 170.2 cm (5' 7 ) 08/08/2012 1:27 PM SECOND COOK AND BAKER Body Mass Index 29.29 08/08/2012 1:27 PM SECOND COOK AND BAKER documented in this encounter Progress Notes * Annalisa Christopher MD - 08/08/2012 2:08 PM CST HISTORY OF PRESENT ILLNESS Fabiana Pryor, a 37 y.o. female. HPI Chief Complaint Patient presents with ??? Sore Throat pt. c/o sore throat x 3days ??? Sinus Pain pt. c/o sinus pain and pressure ??? Nasal Congestion Since last week Body ache , cold REVIEW OF SYSTEMS Review of Systems Constitutional: Positive for fatigue. Negative for fever and chills. HENT: Positive for congestion, sore throat, postnasal drip and sinus pressure. Respiratory: Negative for cough, shortness of breath and wheezing. Cardiovascular: Negative for chest pain, palpitations and leg swelling. Gastrointestinal: Negative for abdominal pain. PHYSICAL EXAM BP 118/78 Ht 5' 7 (1.702 m) Wt 187 lb (84.823 kg) BMI 29.29 kg/m2 ? No Physical Exam Constitutional: She [...] is not diaphoretic. ASSESSMENT and PLAN: 1. Acute sinusitis (461.9) azithromycin (ZITHROMAX Z-CHRIS) 250 mg Oral tablet, methylPREDNISolone (MEDROL DOSPACK) 4 mg Oral DsPk 2. Sore throat (462) POC RAPID STREP A ND COOK AND BAKER documented in this encounter Plan of Treatment Upcoming Encounters Date Type Department Care Team (Late st Contact Info) Description 04/25/2025 8:20 AM CDT Office Visit [facility] Primary Care - [facility] [address] [place] [address] Annalisa Christopher MD [address] [place] [address] documented as of this encounter Procedures Procedure Name Priority Date/Time Associated Diagnosis Comments POC RAPID STREP A ANTIGEN Routine 08/08/2012 2:09 PM SECOND COOK AND BAKER Sore throat documented in this encounter Results * POC RAPID STREP A (08/08/2012 2:09 PM SECOND COOK AND BAKER) RAPID STREP Negative Negative [facility] Specimen from throat (specimen) 08/08/2012 2:09 PM SECOND COOK AND BAKER Annalisa Christopher MD POINT OF CARE TESTIN [facility] documented in this encounter Visit Diagnoses Diagnosis Acute sinusitis- Primary Acute sinusitis, unspecified Sore throat Acute pharyngitis documented in this encounter Care Teams Home Office Representative Relationship Specialty Start Date End Date Annalisa Christopher MD [address] [facility] [address] [place] [address] PCP - General 07/07/08 documented as of this encounter
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
--- OUTSIDE RECORDS SUMMARY | 2024-10-06 18:47 | XMS_ITS | Encounter Summary ---
Author Organization [facility] Address [address] [place] [address] Care Team Providers Care Case Loader Operator Name Role Phone Annalisa Christopher MD Primary Care Provider [phone] Reason for Visit * Reason Comments Physical Upper Respiratory Symptoms Encounter Details Date Type Department Care Team (Late st Contact Info) Description 09/20/2013 9:00 AM HOME HEALTH CARE COORDINATOR Office Visit [facility] Primary Care - [address] [place] [address] Mery Villanueva F, PUMP ERECTOR HELPER- [address] [facility] [address] [place] [address] Physical exam, annual (Primary Dx); [...] Comments Blood Pressure 96/80 09/20/2013 9:06 AM HOME HEALTH CARE COORDINATOR Pulse - - Temperature 36.3 ??C (97.4 ??F) 09/20/2013 9:06 AM CS T Respiratory Rate - - Oxygen Saturation - - Inhaled Oxygen Concentration - - Weight 84.6 kg (186 lb 9.6 oz) 09/20/2013 9:06 A M HOME HEALTH CARE COORDINATOR Height 170.2 cm (5' 7 ) 09/20/2013 9:06 AM HOME HEALTH CARE COORDINATOR Body Mass Index 29.23 09/20/2013 9:06 AM HOME HEALTH CARE COORDINATOR documented in this encounter Progress Notes * Mery Villanueva APRN- - 09/20/2013 9:12 AM CST Mery Villanueva APRN, [facility] [place] [address] SUBJECTIVE: Chief Complaint Patient presents with ??? [...] of care and all questions were answered. HEALTH CARE COORDINATOR documented in this encounter Plan of Treatment Upcoming Encounters Date Type Department Care Team (Late st Contact Info) Description 04/25/2025 8:20 AM CDT Office Visit [facility] Primary Care - [facility] [address] [place] [address] [address] [place] [address] Annalisa Christopher MD [address] [facility] [address] [place] [address] documented as of this encounter Results * VITAMIN D 25 HYDROXY (09/20/2013 1:41 PM HOME HEALTH CARE COORDINATOR) Pathologist [facility] VITAMIN D, 25 [place], TOTAL 25 ng/mL [facility] Comment: Therapy is based on measurement [...] ng/mL. Blood specimen (specimen) 09/20/2013 1:41 PM HOME HEALTH CARE COORDINATOR 09/20/2013 2:24 PM HOME HEALTH CARE COORDINATOR Mery Villanueva PUMP ERECTOR HELPER-BC CHEMISTRY ORDERA BLES [facility] CLIA# [id number] [address] [place] [address] * TSH REFLEXIVE (09/20/2013 1:41 PM HOME HEALTH CARE COORDINATOR) [facility] TSH 0.63 0.27 - 4.20 uU/mL [facility] Blood specimen (specimen) 09/20/2013 1:41 PM HOME HEALTH CARE COORDINATOR 09/20/2013 2:24 PM HOME HEALTH CARE COORDINATOR Mery Jyoti Kay PUMP ERECTOR HELPER-BC CHEMISTRY ORDERA BLES Performing Organization Address City/[facility]/ZIP Co de Phone Number [facility] CLIA# [id number] [address] [address] * (ABNORMAL) LIPID PANEL (09/20/2013 1:41 PM HOME HEALTH CARE COORDINATOR) [facility] CHOLESTEROL 199 100 - 199 mg/dL [facility] TRIGLYCERIDE 105 10 - 149 mg/dL [facility] HDL 49 40 - 59 mg/dL [facility] CHOL/HDL RATIO 4.1 2.0 - 5.0 [facility] LDL CALCULATED 129(H) <=99 mg/dL [facility] LIPID PANEL COMMENT See Below [facility] Comment: The adult ATP and pediatric NCEP classifications for lipids are available in the Laboratory Services Policy Manual on the [facility] Intranet at: http://[employer] Devicesjosmercy-intranet.[facility]/ Blood specimen (specimen) 09/20/2013 1:41 PM HOME HEALTH CARE COORDINATOR 09/20/2013 2:24 PM HOME HEALTH CARE COORDINATOR Mery Montes Kay PUMP ERECTOR HELPER- CHEMISTRY ORDERA BLES [facility] CLIA# [id number] [address] [facility] [address] [place] [address] * (ABNORMAL) COMPREHENSIVE METABOLIC PANEL (09/20/2013 1:41 PM HOME HEALTH CARE COORDINATOR) SODIUM 137 135 - 145 mmol/L [facility] POTASSIUM 4.0 3.5 - 4.9 mmol/L [facility] CHLORIDE 105 96 - 108 mmol/L [facility] CO2 23 22 - 30 mmol/L [facility] CALCIUM 9.2 8.6 - 10.2 mg/dL [facility] BUN 9 6 - 20 mg/dL [facility] CREATININE 0.63 0.51 - 0.95 mg/dL [facility] GLUCOSE 97 65 - 99 mg/dL [facility] TOTAL PROTEIN 6.8 6.3 - 8.6 g/dL [facility] ALBUMIN 4.2 3.4 - 4.8 g/dL [facility] BILIRUBIN TOTAL 0.3 0.2 - 1.0 mg/dL [facility] ALKALINE PHOSPHATASE 107(H) 35 - 104 U/L [facility] AST 53(H) 12 - 32 U/L [facility] - [facility] ALT 182(H) 0 - 31 U/L [facility] GFR, >60 >=60 mL/min/1. 7 sq meter [facility] - [facility] GFR >60 >=60 mL/min/1. 7 sq meter [facility] - [facility] Comment: GFR is calculated using the IDMS-Traceable Modification of Diet in Renal Disease (MDRD) Study formula and is only valid for patients 18 years or older. Further interpretative information is available in the Laboratory Services Policy Manual on the [facility] Intranet at: http://[facility]-intranet.[facility]/ Blood specimen (specimen) 09/20/2013 1:41 PM HOME HEALTH CARE COORDINATOR 09/20/2013 2:24 PM HOME HEALTH CARE COORDINATOR Mery Villanueva APRN- CHEMISTRY ORDERA BLES [facility] CLIA# [id number] [address] [place] [address] * (ABNORMAL) CBC WITH DIFFERENTIAL (09/20/2013 1:41 PM HOME HEALTH CARE COORDINATOR) WBC 3.6(L) 4.0 - 9.8 K/uL [facility] RBC 4.61 3.90 - 4.90 M/uL [facility] HEMOGLOBIN 13.9 11.8 - 14.8 g/dL [facility] HEMATOCRIT 41.9 35.5 - 44.0 % [facility] MCV 90.9 82.0 - 99.0 fL [facility] MCH 30.2 27.2 - 32.6 pg [facility] MCHC 33.2 31.5 - 35.5 % [facility] PLATELETS 198 140 - 350 K/uL [facility] MPV 10.6 9.3 - 12.4 fL [facility] RDW 13.1 11.5 - 14.5 % [facility] RDW-STDEV 43.2 37.1 - 48.7 fL [facility] [...] 1.30 K/uL [facility] . [facility] EOSINOPHIL ABSOLUTE 0.06 0.00 - 0.70 K/uL [facility] . JORGE BASOPHILS ABSOLUTE 0.01 0.00 - 0.20 K/uL [facility] Blood specimen (specimen) 09/20/2013 1:41 PM HOME HEALTH CARE COORDINATOR 09/20/2013 2:24 PM HOME HEALTH CARE COORDINATOR Mery Villanueva APRN- HEMATOLOGY ORDER ONUR [facility] [id number] [address] [place] [address] documented in this encounter Visit Diagnoses Diagnosis Physical exam, annual- Primary Routine general medical examination at a health care facility Extrinsic asthma, unspecified Acute URI Acute upper respiratory infections of unspecified site Screening, lipid Screening for lipoid disorders Fatigue Other malaise and fatigue Weight gain Abnormal weight gain documented in this encounter Care Teams Case Loader Operator Relationship Specialty Start Date End Date Annalisa Christopher MD [address] [place] [address] PCP - General 07/07/08 documented as of this encounter
--- OUTSIDE RECORDS SUMMARY | 2024-10-06 18:47 | XMS_ITS | Encounter Summary ---
Author Organization [facility] Address [address] [place] [address] Care Team Providers Care Coat Examiner Name Role Phone Annalisa Christopher MD Primary Care Provider [phone] Encounter Details Date Type Department Care Team (Latest Contact Info) Description 10/05/2013 9:22 AM OVEN HEATER HELPER - 10/05/2013 11:59 PM [facility] Hospital Encounter [facility] Laboratory Services Medical Barto A [address] [place] [address] Annalisa Christopher MD [address] [place] [address] Rd [address] [place] [address] Discharge Disposition: Home or Self [...] 0 09/20/2013 05/22/2014 fluticasone (FLONASE) 50 mcg/spray [place], SuspensionIndications :Allergic rhinitis Administer 2 Sprays in [...] Health [facility] Care - [facility] [address] [facility] [address] [place] [address] Annalisa Christopher MD [address] [facility] [address] [place] [address] documented as of this encounter Procedures Procedure Name Priority Date/Time Associated Diagnosis Comments ACUTE HEPATITIS PANEL Routine 10/05/2013 9:28 AM OVEN HEATER HELPER Malaise and fatigue Elevated liver enzymes Epigastric abdominal pain HEPATITIS B SURFACE ANTIGEN Routine 10/05/2013 9:28 AM OVEN HEATER HELPER HEPATITIS C ANTIBODY Routine 10/05/2013 9:28 AM OVEN HEATER HELPER HEPATITIS B CORE IGM Routine 10/05/2013 9:28 AM OVEN HEATER HELPER HEPATITIS A IGM Routine 10/05/2013 9:28 AM OVEN HEATER HELPER GGT Routine 10/05/2013 9:28 AM OVEN HEATER HELPER Malaise and fatigue Elevated liver enzymes Epigastric abdominal pain COMPREHENSIVE METABOLIC PANEL Routine 10/05/2013 9:28 AM OVEN HEATER HELPER Malaise and fatigue Elevated liver enzymes Epigastric abdominal pain documented in this encounter Results * HEPATITIS B CORE IGM (10/05/2013 9:28 AM OVEN HEATER HELPER) HEPATITIS B CORE IGM Negative Negative [facility] Comment: Test Performed by: [facility] - [address] [address] Slip Maker: Jose C Alcaraz III, M.D. Blood specimen (specimen) 10/05/2013 9:28 AM OVEN HEATER HELPER 10/05/2013 9:34 AM OVEN HEATER HELPER Mery F Kay FILER AND SANDER-BC CHEMISTRY ORDERA BLES Performing Organization Address [facility] Co de Phone Number [facility] CLIA# [id number] [address] [place] [address] * HEPATITIS A IGM (10/05/2013 9:28 AM OVEN HEATER HELPER) [facility] HEPATITIS A IGM Negative Negative [facility] Comment: Test Performed by: [facility] - [address] [address] Slip Maker: Jose C Alcaraz III, M.D. Blood specimen (specimen) 10/05/2013 9:28 AM OVEN HEATER HELPER 10/05/2013 9:34 AM OVEN HEATER HELPER Mery Jyoti Kay FILER AND SANDER-BC CHEMISTRY ORDERA BLES Performing Organization Address [facility] de Phone Number [facility] CLIA# [id number] [address] [place] [address] * HEPATITIS C ANTIBODY (10/05/2013 9:28 AM OVEN HEATER HELPER) [facility] HEPATITIS C AB NON-REACT YOVANY NON-REACT YOVANY [facility] SIGNAL TO CUT OFF 0.02 <1.00 [facility] Comment: ? Lab test performed by: [facility] [address] [place] [address] NELSON FRENCH DO,MPH Blood specimen (specimen) 10/05/2013 9:28 AM OVEN HEATER HELPER 10/05/2013 9:34 AM OVEN HEATER HELPER Mery Jyoti Villanueva FILER AND SANDER-BC CHEMISTRY ORDERA BLES Performing Organization Address [facility]/ZIP Co de Phone Number [facility] CLIA# [id number] [address] [place] [address] * HEPATITIS B SURFACE ANTIGEN (10/05/2013 9:28 AM OVEN HEATER HELPER) Pathologist [facility] HEPATITIS B SURFACE AG Nonreactive Nonreactive [facility] Blood specimen (specimen) 10/05/2013 9:28 AM OVEN HEATER HELPER 10/05/2013 9:34 AM OVEN HEATER HELPER Mery Villanueva FILER AND SANDERPlango CHEMISTRY ORDERA BLES Performing Organization Address [facility]/ZIP Co de Phone Number [facility] CLIA# [id number] [address] [place] [address] * GGT (10/05/2013 9:28 AM OVEN HEATER HELPER) Pathologist [facility] GGT 36 5 - 36 U/L [facility] Blood specimen (specimen) 10/05/2013 9:28 AM OVEN HEATER HELPER 10/05/2013 9:35 AM OVEN HEATER HELPER Mery Villanueva FILER AND SANDER-Heekya CHEMISTRY ORDERA BLES Performing Organization Address [facility]/ZIP Co de Phone Number [facility] CLIA# [id number] [address] [place] [address] * COMPREHENSIVE METABOLIC PANEL (10/05/2013 9:28 AM OVEN HEATER HELPER) SODIUM 141 135 - 145 mmol/L [facility] - [facility] POTASSIUM 4.1 3.5 - 4.9 mmol/L [facility] - . [facility] CHLORIDE 108 96 - 108 mmol/L [facility] - . [facility] CO2 22 22 - 30 mmol/L [facility] - [facility] CALCIUM 8.9 8.6 - 10.2 mg/dL [facility] - . [facility] BUN 13 6 - 20 mg/dL [facility] - . [facility] CREATININE 0.73 0.51 - 0.95 mg/dL [facility] GLUCOSE 99 65 - 99 mg/dL [facility] TOTAL PROTEIN 7.4 6.3 - 8.6 g/dL [facility] ALBUMIN 4.5 3.4 - 4.8 g/dL [facility] BILIRUBIN TOTAL 0.4 0.2 - 1.0 mg/dL [facility] ALKALINE PHOSPHATASE 76 35 - 104 U/L [facility] AST 20 12 - 32 U/L [facility] ALT 29 0 - 31 U/L [facility] GFR, >60 >=60 mL/min/1. 7 sq meter [facility] GFR >60 >=60 mL/min/1. 7 sq meter [facility] Comment: GFR is calculated using the IDMS-Traceable Modification of Diet in Renal Disease (MDRD) Study formula and is only valid for patients 18 years or older. Further interpretative information is available in the Laboratory Services Policy Manual on the [facility] Intranet at: http://[facility] navicent baldwinet.[facility]/ Blood specimen (specimen) 10/05/2013 9:28 AM OVEN HEATER HELPER 10/05/2013 9:35 AM OVEN HEATER HELPER Mery Villanueva APRN-Heekya CHEMISTRY ORDERA BLES Performing Organization Address [facility]/ZIP Co de Phone Number [facility] CLIA# [id number] [address] [facility] [place] [address] * ACUTE HEPATITIS PANEL (10/05/2013 9:28 AM OVEN HEATER HELPER) COMMENT See Additional [facility]ables [facility] Blood specimen (specimen) 10/05/2013 9:28 AM OVEN HEATER HELPER 10/05/2013 9:34 AM OVEN HEATER HELPER Mery Villanueva FILER AND SANDER- CHEMISTRY ORDERA BLES [facility]# [id number] [address] [place] [place] [address] documented in this encounter Visit Diagnoses Diagnosis Malaise and fatigue Other malaise and fatigue Elevated liver enzymes Nonspecific elevation of levels of transaminase or lactic acid dehydrogenase (LDH) Epigastric abdominal pain Abdominal pain, epigastric documented in this encounter Care Teams Coat Examiner Relationship Specialty Start Date End Date Annalisa Christopher MD [address] [place] [address] PCP - General 07/07/08 documented as of this encounter
--- OUTSIDE RECORDS SUMMARY | 2024-10-06 18:47 | XMS_ITS | Encounter Summary ---
Author Organization [facility] Address [address] [place] [address] Care Team Providers Care Music Executive Name Role Phone Annalisa Christopher MD Primary Care Provider [phone] Reason for Visit * Reason Onset Date Comments Sinus Infection 10/15/2012 Encounter Details Date Type Department Care Team (Late st Contact Info) Description 10/15/2012 Telephone [facility] Primary Care - [address] [place] [address] Annalisa Christopher MD [address] [place] [address] [address] [place] [address] Sinus Infection Social History Tobacco [...] pt script sent to pharmacy per . R PIPE INSTALLER * Telephone Encounter - Annalisa Christopher MD - 10/15/2012 9:36 AM CST Offer Z-elizabeth R PIPE INSTALLER * Telephone Encounter - Emely Cuadra - 10/15/2012 8:52 AM CST Stuffy, drainage, yellow mucous, prod cough, no wheeze or sob, pressure around eyes Hoarse, no fever, headache, no ear ache, x 1wk Taking tylenol cold/flu Asking for rx R PIPE INSTALLER documented in this encounter Plan of Treatment Upcoming Encounters Date Type Department Care Team (Late st Contact Info) Description 04/25/2025 8:20 AM CDT Office Visit [facility] Primary Care - [facility] [address] [facility] [address] [place] [address] Annalisa Christopher MD [address] [facility] [address] [place] [address] documented as of this encounter Visit Diagnoses Not on filedocumented in this encounter Care Teams Music Executive Relationship Specialty Start Date End Date Annalisa Christopher MD [address] [facility] [address] [place] [address] PCP - General 07/07/08 documented as of this encounter
--- OUTSIDE RECORDS SUMMARY | 2024-10-06 18:47 | XMS_ITS | Encounter Summary ---
Author Organization [facility] Address [address] [place] [address] Care Team Providers Care Field Manager Name Role Phone Annalisa Christopher MD Primary Care Provider [phone] Reason for Visit * Reason Comments Sinus Problem Headache frontal Encounter Details Date Type Department Care Team (Late st Contact Info) Description 06/24/2013 10:30 AM CDT Office Visit [facility] Primary Care - [address] [place] [address] Annalisa Christopher MD [address] [place] [address] [place] [address] Acute sinusitis (Primary Dx); Extrinsic asthma, [...] Body Mass Index 28.63 08/08/2012 1:27 PM EXTRUSION DIE CORRECTOR documented in this encounter Progress Notes * [...] Visit [facility] Primary Care - [facility] [address] [facility] [address] [place] [address] Annalisa Christopher MD [address] [facility] [address] [place] [address] documented as of this encounter Visit Diagnoses Diagnosis Acute sinusitis- Primary Acute sinusitis, unspecified Extrinsic asthma, unspecified documented in this encounter Care Teams Field Manager Relationship Specialty Start Date End Date Annalisa Christopher MD [address] [facility] [address] [place] [address] PCP - General 07/07/08 documented as of this encounter
--- OUTSIDE RECORDS SUMMARY | 2024-10-06 18:47 | XMS_ITS | Encounter Summary ---
Author Organization [facility] Address [address] [place] [address] Care Team Providers Care Melt Room Operator Name Role Phone Annalisa Christopher MD Primary Care Provider [phone] Encounter Details Date Type Department Care Team (Latest Contact Info) Description 09/20/2013 1:41 PM BIOPROCESS DEVELOPMENT ENGINEER - 09/20/2013 11:59 PM [facility] Hospital Encounter [facility] Laboratory Support Services [address] [place] [address] Mery Villanueva F, [facility] [address] [facility] [address] [place] [address] Routine general medical examination at [...] 0 09/20/2013 05/22/2014 fluticasone (FLONASE) 50 mcg/spray [place], SuspensionIndications :Allergic rhinitis Administer 2 Sprays in [...] [facility] Primary Care - [facility] [address] [facility] [address] [place] [address] Annalisa Christopher MD [address] [facility] [address] [place] [address] documented as of this encounter Procedures Procedure Name Priority Date/Time Associated Diagnosis Comments TSH REFLEXIVE Routine 09/20/2013 1:41 PM BIOPROCESS DEVELOPMENT ENGINEER Fatigue Weight gain CBC WITH DIFFERENTIAL Routine 09/20/2013 1:41 PM BIOPROCESS DEVELOPMENT ENGINEER Physical exam, annual Fatigue Weight gain VITAMIN D 25 HYDROXY Routine 09/20/2013 1:41 PM BIOPROCESS DEVELOPMENT ENGINEER Fatigue LIPID PANEL Routine 09/20/2013 1:41 PM BIOPROCESS DEVELOPMENT ENGINEER Screening, lipid COMPREHENSIVE METABOLIC PANEL Routine 09/20/2013 1:41 PM BIOPROCESS DEVELOPMENT ENGINEER Physical exam, annual Fatigue Weight gain documented in this encounter Results * (ABNORMAL) LIPID PANEL (09/20/2013 1:41 PM BIOPROCESS DEVELOPMENT ENGINEER) [facility] Signature CHOLESTEROL 199 100 - 199 mg/dL [facility] LABORATORY [facility] TRIGLYCERIDE 105 10 - 149 mg/dL [facility] HDL 49 40 - 59 mg/dL [facility] CHOL/HDL RATIO 4.1 2.0 - 5.0 [facility] LDL CALCULATED 129(H) <=99 mg/dL [facility] LIPID PANEL COMMENT See Below [facility] Comment: The adult ATP and pediatric NCEP classifications for lipids are available in the Laboratory Services Policy Manual on the [facility] Intranet at: [email or web address].[facility]/ Blood specimen (specimen) 09/20/2013 1:41 PM BIOPROCESS DEVELOPMENT ENGINEER 09/20/2013 2:24 PM BIOPROCESS DEVELOPMENT ENGINEER Mery Villanueva [facility] CHEMISTRY ORDERA BLES Performing Organization Address [facility] Co de Phone Number [facility] CLIA# [id number] [address] [place] [address] * VITAMIN D 25 HYDROXY (09/20/2013 1:41 PM BIOPROCESS DEVELOPMENT ENGINEER) VITAMIN D, 25 OH, TOTAL 25 ng/mL [facility] Comment: Therapy is based on measurement [...] ng/mL. Blood specimen (specimen) 09/20/2013 1:41 PM BIOPROCESS DEVELOPMENT ENGINEER 09/20/2013 2:24 PM BIOPROCESS DEVELOPMENT ENGINEER Mery Villanueva [facility] CHEMISTRY ORDERA BLES Performing Organization Address [facility] Co de Phone Number [facility] CLIA# [id number] [address] [place] [address] * TSH REFLEXIVE (09/20/2013 1:41 PM BIOPROCESS DEVELOPMENT ENGINEER) TSH 0.63 0.27 - 4.20 uU/mL [facility] Blood specimen (specimen) 09/20/2013 1:41 PM BIOPROCESS DEVELOPMENT ENGINEER 09/20/2013 2:24 PM BIOPROCESS DEVELOPMENT ENGINEER Mery Villanueva JUAN- CHEMISTRY ORDERA BLES [facility] LABORATORY SERVICES [facility] JENNIFER# [id number] [address] [facility] [place] [address] * (ABNORMAL) COMPREHENSIVE METABOLIC PANEL (09/20/2013 1:41 PM BIOPROCESS DEVELOPMENT ENGINEER) SODIUM 137 135 - 145 mmol/L [facility] LABORATORY SERVICES - [facility] POTASSIUM 4.0 3.5 - 4.9 mmol/L [facility] CHLORIDE 105 96 - 108 mmol/L [facility] CO2 23 22 - 30 mmol/L [facility] CALCIUM 9.2 8.6 - 10.2 mg/dL [facility] BUN 9 6 - 20 mg/dL [facility] CREATININE 0.63 0.51 - 0.95 mg/dL [facility] GLUCOSE 97 65 - 99 mg/dL [facility] TOTAL PROTEIN 6.8 6.3 - 8.6 g/dL [facility] ALBUMIN 4.2 3.4 - 4.8 g/dL [facility] BILIRUBIN TOTAL 0.3 0.2 - 1.0 mg/dL [facility] ALKALINE PHOSPHATASE 107(H) 35 - 104 U/L [facility] AST 53(H) 12 - 32 U/L [facility] ALT 182(H) 0 - 31 U/L [facility] GFR, >60 >=60 mL/min/1. 7 sq meter [facility] GFR >60 >=60 mL/min/1. 7 sq meter [facility] Comment: GFR is calculated using the IDMS-Traceable Modification of Diet in Renal Disease (MDRD) Study formula and is only valid for patients 18 years or older. Further interpretative information is available in the Laboratory Services Policy Manual on the [facility] Intranet at: [email or web address]/ Blood specimen (specimen) 09/20/2013 1:41 PM BIOPROCESS DEVELOPMENT ENGINEER 09/20/2013 2:24 PM BIOPROCESS DEVELOPMENT ENGINEER Mery Villanueva ELECTRIC WELL LOGGING OPERATOR- CHEMISTRY ORDERA BLES [facility] LABORATORY SERVICES [facility] CLIA# [id number] [address] [facility] [address] [facility] [place] [address] * (ABNORMAL) CBC WITH DIFFERENTIAL (09/20/2013 1:41 PM BIOPROCESS DEVELOPMENT ENGINEER) WBC 3.6(L) 4.0 - 9.8 K/uL [facility] RBC 4.61 3.90 - 4.90 M/uL [facility] LABORATORY SERVICES [facility] HEMOGLOBIN 13.9 11.8 - 14.8 g/dL [facility] HEMATOCRIT 41.9 35.5 - 44.0 % [facility] MCV 90.9 82.0 - 99.0 fL [facility]OR[facility] SERVICES - [facility] MCH 30.2 27.2 - 32.6 pg [facility] MCHC 33.2 31.5 - 35.5 % [facility] - [facility] PLATELETS 198 140 - 350 K/uL [facility] MPV 10.6 9.3 - 12.4 fL [facility] RDW 13.1 11.5 - 14.5 % [facility] RDW-STDEV 43.2 37.1 - 48.7 fL [facility] NEUTROPHILS 50 45 - 70 % [facility] - . [facility] LYMPHOCYTES 34 16 - 45 % [facility] - . [facility] MONOCYTES 15(H) 3 - 13 % [facility] - . [facility] EOSINOPHILS 2 0 - 7 % [facility] - . [facility] BASOPHILS 0 0 - 2 % [facility] - . [facility] NEUTROPHIL ABSOLUTE 1.77(L) 1.90 - 7.00 K/uL [facility] LYMPHOCYTE ABSOLUTE 1.19 0.70 - 4.50 K/uL [facility] SERVICES - [facility] MONOCYTE ABSOLUTE 0.52 0.10 - 1.30 K/uL [facility] SERVICES - [facility] EOSINOPHIL ABSOLUTE 0.06 0.00 - 0.70 K/uL [facility] SERVICES - [facility] BASOPHILS ABSOLUTE 0.01 0.00 - 0.20 K/uL [facility] SERVICES - [facility] Blood specimen (specimen) 09/20/2013 1:41 PM BIOPROCESS DEVELOPMENT ENGINEER 09/20/2013 2:24 PM BIOPROCESS DEVELOPMENT ENGINEER Mery Villanueva ELECTRIC WELL LOGGING OPERATOR- HEMATOLOGY ORDER ONUR [facility] LABORATORY SERVICES - [facility] CLIA# [id number] [address] [place] [address] documented in this encounter Visit Diagnoses Diagnosis Physical exam, annual Routine general medical examination at a health care facility Fatigue Other malaise and fatigue Weight gain Abnormal weight gain Screening, lipid Screening for lipoid disorders documented in this encounter Care Teams Melt Room Operator Relationship Specialty Start Date End Date Annalisa Christopher MD [address] [place] [address] PCP - General 07/07/08 documented as of this encounter
--- OUTSIDE RECORDS SUMMARY | 2024-10-06 18:47 | XMS_ITS | Encounter Summary ---
Author Organization [facility] Address [address] [place] [address] Care Team Providers Care Rent Control Office Manager Name Role Phone Annalisa Christopher MD Primary Care Provider [phone] Reason for Visit * Reason Comments Upper Respiratory Symptoms presents with c/o nasal congestion and cough x5 days. Jennifer BruzaitisRN 10/05/14 @ 0939. * Auth/Cert - Closed Specialty Diagnoses / Procedures Referred By Contac t Referred To Contact Urgent Care Diagnoses [facility] [address] [address] Referral ID Status Reason Start Date Expiration Date Visits Re quested Visits Authorized [id number] Closed 1 1 Encounter Details Date Type Department Care Team (Late st Contact Info) Description 10/05/2014 9:25 AM HOUSE SUPERINTENDENT Office Visit [facility] Urgent [address] [address] Karina Schreiber MD [address] [place] [address] Sinusitis (Primary Dx); Sore throat Social History [...] Comments Blood Pressure 113/77 10/05/2014 9:39 AM HOUSE SUPERINTENDENT Pulse 79 10/05/2014 9:39 AM HOUSE SUPERINTENDENT Temperature 36.6 ??C (97.9 ??F) 10/05/2014 9:39 AM CS T Respiratory Rate 20 10/05/2014 9:39 AM HOUSE SUPERINTENDENT Oxygen Saturation 97% 10/05/2014 9:39 AM HOUSE SUPERINTENDENT Inhaled Oxygen Concentration - - Weight 79.4 kg (175 lb) 10/05/2014 9:39 AM HOUSE SUPERINTENDENT Height 170.2 cm (5' 7 ) 10/05/2014 9:39 AM HOUSE SUPERINTENDENT Body Mass Index 27.41 10/05/2014 9:39 AM HOUSE SUPERINTENDENT documented in this encounter Progress Notes * [...] Tab 0 ??? fluticasone (FLONASE) 50 mcg/spray [place], Suspension SPRAY TWICE IN EACH NOSTRIL EVERY [...] worsens. See AVS summary for care notes. E SUPERINTENDENT * Nicole Hyman RN - 10/05/2014 9:42 AM CST Ambulatory to treatment room with c/o sinus drainage, cough and now sore throat x1 week. States nasal secretions yellow. Alert, coherent and speaks in sentences. Skin warm and dry. Afebrile. Posterior oropharynx w/erythema noted. Throat swabbed for POC strep. E SUPERINTENDENT documented in this encounter Miscellaneous Notes * [...] for yourself at home? ?? Take an pyfy-dic-nhpaqrx pain medicine, such as acetaminophen (Tylenol), ibuprofen (Advil, Motrin), or naproxen (Aleve). Read and follow all instructions on the label. ?? If the doctor prescribed antibiotics, take them as directed. Do not stop taking them just because you feel better. You need to take the full course of antibiotics. ?? Be careful when taking fevs-gwi-omiukur cold or flu medicines and Tylenol at [...] nose drops at a grocery store or drugsCerese. Or you can make your own at [...] Where can you learn more? Go to [employer], choose I Want To... and then choose Search Medical Information. Enter I933 in the search box to learn more about Sinusitis: After Your Visit. Current as of: December 04, 2013 Content Version: 10.2 ?? [id number] [employer], [employer]ish. Care instructions adapted under license by [employer] / [email or web address]. [facility] disclaims any warranty or liability for your use of this information. This information is not intended to represent the ethical and orthodox beliefs of [facility]. This care instruction is for use with your licensed healthcare professional. If you have questions about a medical condition or this instruction, always ask your healthcare professional. [employer] disclaims any warranty or liability for your use of this information. Please follow with your primary care physician, Annalisa Christopher MD in 48-72 hours if NO better. If your symptoms worsen recheck at your local ER. If you do not have a primary doctor, [facility] offers a free referral service by calling [phone], , or toll free . This information can also be accessed on the web at [email or web address]. If a test or physician referral was ordered for you today, you can schedule these by calling Central Testing Scheduling (CTS),[phone], or Central Referral Scheduling (CRS), during normal work hours. Inform them you had a test or referral ordered during your visit at the [facility]. If you are female and on hormone based control there is a slight increase in risk with the use of antibiotics, the patient is asked to back up her OCP with condom or other method during this (or any) cycle during which she is taking antibiotics. Thank you for choosing to the [facility] Urgent [facility] Location [address] [facility] [address] [place] [address] [place] [address] [facility] Location [address] [facility] [address] [facility] [address] [place] [address] [place] [address] [phone] [facility] [address] [facility] [place] [address] IMPORTANT: You were examined and treated today on an urgent basis. This was not a substitute for, nor an effort to provide, complete and ongoing medical care. On arrival to [facility], you may have reported taking home [...] appropriate medical personnel. Thank-you again for choosing [facility]. E SUPERINTENDENT documented in this encounter Plan of Treatment Upcoming Encounters Date Type Department Care Team (Late st Contact Info) Description 04/25/2025 8:20 AM CDT Office Visit [facility] Primary Care - [facility] [address] [facility] [address] [place] [address] Annalisa Christopher MD [address] [facility] [place] [address] documented as of this encounter Procedures Procedure Name Priority Date/Time Associated Diagnosis Comments POC RAPID STREP A ANTIGEN Routine 10/05/2014 10:03 AM HOUSE SUPERINTENDENT Sore throat documented in this encounter Results * POC RAPID STREP A (10/05/2014 10:03 AM HOUSE SUPERINTENDENT) RAPID STREP A ANTIGEN POC Negative Negative INTERFACE SYSTEM CLIA LICENSE [id number] INTERF LOUISE SYSTEM Specimen from throat (specimen) 10/05/2014 10:03 AM HOUSE SUPERINTENDENT 10/05/2014 10:03 AM HOUSE SUPERINTENDENT Comment:THROAT Karina Schreiber MD POINT OF CARE TESTIN G INTERFACE SYSTEM Refer to clinic/hospital department documented in this encounter Visit Diagnoses Diagnosis Sinusitis- Primary Unspecified sinusitis (chronic) Sore throat Acute pharyngitis documented in this encounter Care Teams Rent Control Office Manager Relationship Specialty Start Date End Date Annalisa Christopher MD [address] [facility] [address] [place] [address] PCP - General 07/07/08 documented as of this encounter
--- OUTSIDE RECORDS SUMMARY | 2024-10-06 18:47 | XMS_ITS | Encounter Summary ---
Author Organization [facility] Address [address] [place] [address] Care Team Providers Care Developing Machine Operator Name Role Phone Annalisa Christopher MD Primary Care Provider [phone] Reason for Visit * Reason Onset Date Comments Vaginal Bleeding 11/30/2011 Encounter Details Date Type Department Care Team (Late Contact Info) Description 11/30/2011 Telephone [facility] SURGICAL SCRUB TECHNICIAN - [address] [address] Douglas Patricio MD [address] [place] [address] [place] [address] Vaginal Bleeding Social History Tobacco Use [...] Will try Estrogen for 1 week. AB ON OFFICER documented in this encounter Plan of Treatment Upcoming Encounters Date Type Department Care Team (Late st Contact Info) Description 04/25/2025 8:20 AM CDT Office Visit [facility] Primary Care - [facility] [address] [place] [address] Annalisa Christopher MD [address] [place] [address] documented as of this encounter Visit Diagnoses Not on filedocumented in this encounter Care Teams Developing Machine Operator Relationship Specialty Start Date End Date Annalisa Christopher MD [address] [place] [address] PCP - General 07/07/08 documented as of this encounter
--- OUTSIDE RECORDS SUMMARY | 2024-10-06 18:47 | XMS_ITS | Encounter Summary ---
Author Organization [facility] Address [address] [place] [address] Care Team Providers Care Behavioral Health Aide Name Role Phone Annalisa Christopher MD Primary Care Provider [phone] Reason for Visit * Reason Comments Post- Care 6 wks c/sec Encounter Details Date Type Department Care Team (Late st Contact Info) Description 10/11/2011 10:00 AM DIRECTOR OF PROPERTY MANAGEMENT Office Visit [facility] LINTER SAW SHARPENER - [address] [address] Douglas Patricio MD [address] [place] [address] [place] [phone] care and examination immediately after delivery [...] Comments Blood Pressure 112/80 10/11/2011 10:36 AM DIRECTOR OF PROPERTY MANAGEMENT Pulse - - Temperature - - Respiratory Rate - - Oxygen Saturation - - Inhaled Oxygen Concentration - - Weight 93 kg (205 lb) 10/11/2011 10:36 AM DIRECTOR OF PROPERTY MANAGEMENT Height 170.2 cm (5' 7 ) 10/11/2011 10:36 AM DIRECTOR OF PROPERTY MANAGEMENT Body Mass Index 32.11 10/11/2011 10:36 AM DIRECTOR OF PROPERTY MANAGEMENT documented in this encounter Progress Notes * [...] in 3-4 months, or PRN as necessary CTOR OF PROPERTY MANAGEMENT documented in this encounter Plan of Treatment Upcoming Encounters Date Type Department Care Team (Late st Contact Info) Description 04/25/2025 8:20 AM CDT Office Visit [facility] Primary Care - [facility] [address] [facility] [address] [place] [address] Annalisa Christopher MD [address] [facility] [address] [place] [address] documented as of this encounter Visit Diagnoses Diagnosis care and examination immediately after delivery- Primary documented in this encounter Care Teams Behavioral Health Aide Relationship Specialty Start Date End Date Annalisa Christopher MD [address] [facility] [address] [place] [address] PCP - General 07/07/08 documented as of this encounter
--- OUTSIDE RECORDS SUMMARY | 2024-10-06 18:47 | XMS_ITS | Encounter Summary ---
Author Organization [facility] Address [address] [place] [address] Care Team Providers Care Revenue Field Agent Name Role Phone Annalisa Christopher MD Primary Care Provider [phone] Reason for Visit * Reason Comments Ear Problem pressure and ringing in the ear Encounter Details Date Type Department Care Team (Late st Contact Info) Description 06/23/2014 10:00 AM CDT Office Visit [facility] Primary Care - [address] [place] [address] Annalisa Christopher MD [address] [place] [address] [place] [address] Allergic rhinitis (Primary Dx); Need for [...] Visit [facility] Primary Care - [facility] [address] [facility] [address] [place] [address] Annalisa Christopher MD [address] [facility] [address] [place] [address] documented as of this encounter Visit Diagnoses Diagnosis Allergic rhinitis- Primary Allergic rhinitis, cause unspecified Need for prophylactic vaccination and inoculation against influenza documented in this encounter Care Teams Revenue Field Agent Relationship Specialty Start Date End Date Annalisa Christopher MD [address] [facility] [address] [place] [address] PCP - General 07/07/08 documented as of this encounter
--- OUTSIDE RECORDS SUMMARY | 2024-10-06 18:47 | XMS_ITS | Encounter Summary ---
Author Organization [facility] Address [address] [place] [address] Care Team Providers Care Cloth Cutting Inspector Name Role Phone Annalisa Christopher MD Primary Care Provider [phone] Reason for Visit * Reason Comments IUD Insertion Mirena Test Negative Encounter Details Date Type Department Care Team (Late st Contact Info) Description 11/16/2011 11:15 AM [employer] Office Visit [facility] - Medical [address] [address] Douglas Patricio MD [address] [place] [phone] examination or test, negative result (Primary [...] Comments Blood Pressure 128/80 11/16/2011 11:21 AM [employer] Pulse - - Temperature - - Respiratory Rate - - Oxygen Saturation - - Inhaled Oxygen Concentration - - Weight 90.7 kg (200 lb) 11/16/2011 11:21 AM [employer] Height 170.2 cm (5' 7 ) 11/16/2011 11:21 AM [employer] Body Mass Index 31.32 11/16/2011 11:21 AM [employer] documented in this encounter Progress Notes * Douglas Patricio MD - 11/17/2011 2:30 PM CST See IUD insertion note [employer] documented in this encounter Procedure Notes * Douglas Patricio MD - 11/17/2011 2:29 PM CSTAssociated Order(s): INSERT INTRAUTERINE DEVICE Procedure(s): HI INSERTION INTRAUTERINE DEVICE IUD Pre-Procedure Diagnose(s): Encounter [...] will return in 1 week for US. [employer] documented in this encounter Plan of Treatment Upcoming Encounters Date Type Department Care Team (Late st Contact Info) Description 04/25/2025 8:20 AM CDT Office Visit [facility] [address] [place] [address] Annalisa Christopher MD [address] [place] [address] [address] [place] [address] documented as of this encounter Procedures Procedure Name Priority Date/Time Associated Diagnosis Comments HI INSERTION INTRAUTERINE DEVICE IUD Routine 11/17/2011 2:30 PM [employer] Encounter for IUD insertion POC , URINE Routine 11/16/2011 11:18 AM [employer] examination or test, negative result documented in this encounter Results * HI INSERTION INTRAUTERINE DEVICE IUD (11/17/2011 2:30 PM [employer]) [facility] - 11/17/2011 2:30 PM [employer] Douglas Patricio MD ? 11/17/2011 ??2:30 PM [...] * POC , URINE (11/16/2011 11:18 AM [employer]) HCG QUAL URINE NEG [facility] , URINE POC Negative [facility] SPECIFIC GRAVITY UA 1.001 - 1.035 [facility] HCG QUAL URINE COMMENT [facility] Urine specimen (specimen) 11/16/2011 11:18 AM [employer] Douglas Patricio MD POINT OF CARE TESTIN G [facility] documented in this encounter Visit Diagnoses Diagnosis examination or test, negative result- Primary Encounter for IUD insertion Encounter for insertion of intrauterine contraceptive device documented in this encounter Care Teams Cloth Cutting Inspector Relationship Specialty Start Date End Date Annalisa Christopher MD [address] [place] [address] PCP - General 07/07/08 documented as of this encounter
--- OUTSIDE RECORDS SUMMARY | 2024-10-06 18:47 | XMS_ITS | Encounter Summary ---
Author Organization [facility] Address [address] [place] [address] Care Team Providers Care Finisher Screwdown Name Role Phone Annalisa Christopher MD Primary Care Provider [phone] Reason for Visit * Auth/Cert (Routine) - Closed Specialty Diagnoses / Procedures Referred By Contac t Referred To Contact Diagnoses high bp Procedures SECTION Referral ID Status Reason Start Date Expiration Date Visits Re quested Visits Authorized [id number] Closed 08/31/2011 08/30/2012 1 1 Encounter Details Date Type Department Care Team (Late st Contact Info) Description 08/31/2011 12:45 PM ROLL UP GUIDER OPERATOR - 08/31/2011 2:15 PM ROLL UP GUIDER OPERATOR Surgery [facility] Labor & [address] [place] [address] Douglas Jeffrey MD [address] [facility] [address] [address] SECTION Surgery Details Date/Time Status [...] Comments Blood Pressure 106/47 08/31/2011 2:02 PM ROLL UP GUIDER OPERATOR Pulse 101 08/31/2011 2:02 PM ROLL UP GUIDER OPERATOR Temperature 36.1 ??C (97 ??F) 08/31/2011 1:48 PM ROLL UP GUIDER OPERATOR Respiratory Rate 25 08/31/2011 2:02 PM ROLL UP GUIDER OPERATOR Oxygen Saturation 95% 08/31/2011 2:02 PM ROLL UP GUIDER OPERATOR Inhaled Oxygen Concentration - - Weight 104.8 kg (231 lb) 08/30/2011 5:21 PM ROLL UP GUIDER OPERATOR Height 170.2 cm (5' 7 ) 08/30/2011 5:21 PM ROLL UP GUIDER OPERATOR Body Mass Index 36.18 08/30/2011 5:21 PM ROLL UP GUIDER OPERATOR documented in this encounter Discharge Summaries [...] W-CA,FE,FA,<1MG, ( VITAMIN ORAL) Take by mouth. UP GUIDER OPERATOR documented in this encounter Discharge Instructions * Discharge Instructions* Phuong Kern RN - 09/04/2011 10:20 AM ROLL UP GUIDER OPERATOR PRESCRIPTIONS Prescriptions given? Yes ACTIVITY/EXERCISE Recovery [...] Thoughts of harming yourself or your baby UP GUIDER OPERATOR documented in this encounter Progress Notes * Mello Stuart MD - 09/04/2011 6:28 AM CST second ride fare collector Progress Note Subjective: Pain well controlled with [...] discharge home per attending Mello Stuart MD UP GUIDER OPERATOR * Gavin Wolf MD - 09/03/2011 9:05 AM CST Patient examined Agree With above bhavani UP GUIDER OPERATOR * Mello Stuart MD - 09/03/2011 7:10 AM CST second ride fare collector Progress Note Subjective: Pain well controlled with [...] medications and general diet Mello Stuart MD UP GUIDER OPERATOR * Douglas Jeffrey MD - 09/02/2011 [...] CDI A/P: POD#1 -doing well, continue care. UP GUIDER OPERATOR * Mello Stuart MD - 09/02/2011 8:24 AM CST second ride fare collector Progress Note Subjective: Pain well controlled. Denies [...] pain medications -may shower Mello Stuart MD UP GUIDER OPERATOR * Surjit Clifton MD - 09/01/2011 6:45 AM CST second ride fare collector Progress Note Subjective: Pain well controlled. Denies [...] diet as tolerated Surjit Clifton MD PGY-1 UP GUIDER OPERATOR * Estrellita Schneider MD - 08/31/2011 6:55 AM CST Pt sleeping Filed Vitals: 08/30/11 1825 08/30/11 1840 08/30/11 1855 08/30/11 2344 BP: 128/67 139/75 125/88 112/60 Pulse: Temp: 97.8 ??F (36.6 ??C) TempSrc: Oral Resp: 18 Height: Weight: Not examined FHR reactive [place]- irreg ctx Plan for repeat this afternoon UP GUIDER OPERATOR * Nova Chang CNM - 08/30/2011 8:50 PM CST Pt continues to contract every 4-5 min , Cervix 1/long/thick FHR reactive, mod variability, cat 1 D/W , voiced pt's concerns to , will admit to L&D for repeat C/S in 6hours UP GUIDER OPERATOR * Nova Chang CNM - 08/30/2011 7:47 PM CST Pt continues to contract every 3 min, PIH labs WNL, will continue to monitor , Procardia 10 just given UP GUIDER OPERATOR documented in this encounter H&P Notes * Shelly Parry CNM - 08/30/2011 5:46 PM CST OB H&P Chief Complaint: Fabiana Pyror is a 36 y.o. female 37w4d weeks gestation who presents to the [facility] from the office. For the evaluation of increased BP (150/100 per pt). Patient denies FLORES, blurry vision, and RUQ pain. Patient reports no bleeding, no leaking, occasional contractions, normal movement. Her primary body die maker is Douglas Jeffrey MD. Current Problem List: [...] Comments: cord accident 4 TRM 11/26 38w0d 5kw16cc(3.487kg) F LTCS EPI No Yes Comments: malpresentation [...] CURETTAGE SUCTION performed by DOUGLAS JEFFREY at [facility] OR MAIN ??? Pr delivery only [...] Monitoring ??? Nonstress Test Notify the attending partition assembler, Dr Schneider @ 1855, 10mg procardia given as ordered, hydrate and feed UP GUIDER OPERATOR documented in this encounter Procedure Notes * Stl Scanning, [facility] - 09/08/2011 8:45 PM CSTAssociated Order(s): TELEMETRY REPORT UP GUIDER OPERATOR documented in this encounter OR Notes * OR Anesthesia - Stl Scanning, [facility] - 09/09/2011 3:34 PM CST UP GUIDER OPERATOR * OR Anesthesia - Ofelia Chilel [...] erythema. Ofelia Chilel MD 09/02/2011 7:26 AM UP GUIDER OPERATOR * OR Anesthesia - Rachael Chisholm [...] OB Anesthesia Post-Operative Assesment 09/01/2011 9:13 AM Faibana Pryor, status post regional anesthesia for section. [...] complications Rachael Chisholm MD 09/01/2011 9:13 AM UP GUIDER OPERATOR * OR Anesthesia - Parker Camacho [...] not increasing, 0=growing area of wetness] [facility] Modified Sean Score: Score: 20 (08/31/11 1457) COMMENTS: No apparent Anesthesia related complications Parker Camacho DO 08/31/2011 3:52 PM UP GUIDER OPERATOR * Operative Report - Briana Wiggins MD - 08/31/2011 1:51 PM CST Note Section Operative Note Date of Procedure: 08/31/2011 Time: Information for the patient's : Zaki Pryor [[id number]] Delivery Time: 1318 (08/31/11 1344) Preoperative Diagnosis: 1. Intrauterine at 37w5d 2. previous 3. GHTN Postoperative Diagnosis: Same Procedure: Repeat Low Transverse Section via Pfannensteil Surgeon: Douglas Jeffrey MD Glaze Mixer: Briana Wiggins MD Anesthesia: Epidural Complications: None [...] Information for the patient's : Zaki Pryor [[id number]] 1 Minute Score: 7 (08/31/11 1343) 5 Minute Score: 8 (08/31/11 1343) Weight Information for the patient's : Zaki Pryor [[id number]] Weight: 7 lb 12 oz (3.515 kg) [...] room in stable condition. Briana Wiggins MD Case Picker Resident, PGY 4 UP GUIDER OPERATOR * OR Anesthesia - Harshil Martinez DO - 08/31/2011 12:10 PM ROLL UP GUIDER OPERATOR OB Anesthesia Day of Surgery Pre-Anesthesia Evaluation 08/31/2011 12:10 PM Name: Fabiana Pryor Age: 36 y.o. CSN: [id number] Procedure: Procedure(s): SECTION Surgeons/Assistants: Surgeon(s) and Role: [...] CURETTAGE SUCTION performed by DOUGLAS JEFFREY at [facility] OR MAIN ??? Pr delivery only [...] solicited and answered. Yes Harshil Martinez DO UP GUIDER OPERATOR documented in this encounter Miscellaneous Notes * Scanned Form - Stl Scanning, [facility] - 09/09/2011 3:34 PM CST Electronically signed by Interface, [facility] Stl Binder Stripper Hand Incoming at 09/09/2011 3:34 PM ROLL UP GUIDER OPERATOR * Scanned Form - Stl Scanning, [facility] - 09/09/2011 3:34 PM CST Electronically signed by Interface, [facility] Stl Binder Stripper Hand Incoming at 09/09/2011 3:34 PM ROLL UP GUIDER OPERATOR * Scanned Form - Stl Scanning, [facility] - 09/09/2011 3:34 PM CST Electronically signed by Interface, [facility] Stl Binder Stripper Hand Incoming at 09/09/2011 3:34 PM ROLL UP GUIDER OPERATOR * Assessment & Plan Note - Stl Scanning, [facility] - 09/09/2011 3:34 PM CST Electronically signed by Interface, [facility] Stl Binder Stripper Hand Incoming at 09/09/2011 3:34 PM ROLL UP GUIDER OPERATOR * Patient Instructions - Stl Scanning, [facility] - 09/09/2011 3:34 PM CST Electronically signed by Interface, [facility] Stl Binder Stripper Hand Incoming at 09/09/2011 3:34 PM ROLL UP GUIDER OPERATOR * Care Plan - Phuong Kern RN - 09/04/2011 6:42 PM CST Discharged to hospitality room. Comfortable. D/C teaching done. Understanding verbalized. [place] have been removed as ordered, & steri strips placed. UP GUIDER OPERATOR * Care Plan - Tori Cruz RN - 09/02/2011 7:01 AM CST Problem: General Plan of Care (Adult, Obstetrics) Goal: Plan of Care Review (Adult, Obstetrics) The patient and/or their in store representative will communicate an understanding of their plan of care. Outcome: Progressing Pt ambulating in room without difficulty. Pt denies pain. Pain medication regimen post epidural discussed. Pt verbalize understanding. UP GUIDER OPERATOR * Treatment Plan - Dhruv Naqvi PHARMACIST - 08/31/2011 6:09 AM ROLL UP GUIDER OPERATOR Images from [place] [address] [facility] Labor and Delivery Hemorrhage Protocol Nursing [...] attending physician. Maximum of 1 dose. o UP GUIDER OPERATOR documented in this encounter Plan of Treatment Upcoming Encounters Date Type Department Care Team (Late st Contact Info) Description 04/25/2025 8:20 AM CDT Office Visit [facility] - [address] [address] Annalisa Christopher MD [address] [facility] [address] [place] [address] documented as of this encounter Procedures Procedure Name Priority Date/Time Associated Diagnosis Comments TELEMETRY REPORT 09/08/2011 8:45 PM ROLL UP GUIDER OPERATOR SECTION 08/31/2011 5:23 PM ROLL UP GUIDER OPERATOR HEPATITIS B SURFACE ANTIGEN (L&D) Stat 08/31/2011 9:53 AM ROLL UP GUIDER OPERATOR RUBELLA IGG Stat 08/31/2011 9:53 AM ROLL UP GUIDER OPERATOR RPR Stat 08/31/2011 9:53 AM ROLL UP GUIDER OPERATOR TYPE AND SCREEN Stat 08/30/2011 9:15 PM ROLL UP GUIDER OPERATOR CBC WITH DIFFERENTIAL Stat 08/30/2011 5:45 PM ROLL UP GUIDER OPERATOR URIC ACID Stat 08/30/2011 5:45 PM ROLL UP GUIDER OPERATOR ALT Stat 08/30/2011 5:45 PM ROLL UP GUIDER OPERATOR AST Stat 08/30/2011 5:45 PM ROLL UP GUIDER OPERATOR LACTATE DEHYDROGENASE Stat 08/30/2011 5:45 PM ROLL UP GUIDER OPERATOR URINALYSIS WITH REFLEX CULTURE Stat 08/30/2011 5:33 PM ROLL UP GUIDER OPERATOR URINALYSIS W/REFLEX MICROSCOPIC Stat 08/30/2011 5:33 PM ROLL UP GUIDER OPERATOR URINE CULTURE Stat 08/30/2011 5:33 PM ROLL UP GUIDER OPERATOR documented in this encounter Results * TELEMETRY REPORT (09/08/2011 8:45 PM ROLL UP GUIDER OPERATOR) Narrative Transcriptions Stl Scanning, Him - 09/08/2011 8:45 PM CST Provider Scanning ECG ORDERABLES * HEPATITIS B SURFACE ANTIGEN (L&D) (08/31/2011 9:53 AM ROLL UP GUIDER OPERATOR) Pathologist [facility] HEPATITIS B SURFACE AG Nonreactive Nonreactive [facility] Comment: Results called to Dr. Елена De Leon at 08/31/11 1401 and read back verified. Performed by [facility], [id number], [place] [address] Blood specimen (specimen) 08/31/2011 9:53 AM ROLL UP GUIDER OPERATOR 08/31/2011 9:56 AM ROLL UP GUIDER OPERATOR Douglas Jeffrey MD CHEMISTRY ORDERABLES Performing Organization Address [facility] Co de Phone Number [facility] CLIA# [id number] [address] [place] [address] * RPR (08/31/2011 9:53 AM ROLL UP GUIDER OPERATOR) [facility] RPR NON-REACT YOVANY NON-REACT YOVANY [facility] Comment: ? Lab test performed by: [facility] [address] [place] [address] NELSON FRENCH DO,MPH Blood specimen (specimen) 08/31/2011 9:53 AM ROLL UP GUIDER OPERATOR 08/31/2011 9:56 AM ROLL UP GUIDER OPERATOR Douglas Jeffrey MD CHEMISTRY ORDERABLES Performing Organization Address [facility] de Phone Number [facility]# [id number] [address] [place] [address] * RUBELLA IGG (08/31/2011 9:53 AM ROLL UP GUIDER OPERATOR) Pathologist [facility] RUBELLA IGG 2.50 Index [facility] Comment: Index ?Interpretation ? < or = 0.90 ?Negative 0.91-1.09 ?Equivocal > or = 1.10 ?Positive The presence of rubella IgG antibody suggests immunization or past or current infection with rubella virus. ? Lab test performed by: [facility] [address] [place] [address] NELSON FRENCHDO,MPH Blood specimen (specimen) 08/31/2011 9:53 AM ROLL UP GUIDER OPERATOR 08/31/2011 9:56 AM ROLL UP GUIDER OPERATOR Douglas Jeffrey MD CHEMISTRY ORDERABLES [facility] [employer] [facility] CLIA# [id number] [address] [place] [address] * TYPE AND SCREEN (08/30/2011 9:15 PM ROLL UP GUIDER OPERATOR) HISTORY CHECK History Checked [facility] LABOR[facility] SPECIMEN LIFE 3 days from drawdate [facility] ABO/RH TYPE B Positive [facility] LABORATORY SERVICES [facility] ANTIBODY SCREEN Negative [facility] Blood specimen (specimen) 08/30/2011 9:15 PM ROLL UP GUIDER OPERATOR 08/30/2011 9:23 PM ROLL UP GUIDER OPERATOR Nova BRADY [facility] HUMA VANESSA Performing Organization Address City/[facility]/ZIP Co de Phone Number INTERFACE SYSTEM Refer to clinic/hospital department [facility] CLIA# [id number] [address] [place] [address] * URIC ACID (08/30/2011 5:45 PM ROLL UP GUIDER OPERATOR) URIC ACID 4.8 2.3 - 6.6 mg/dL [facility] [employer] [facility] Blood specimen (specimen) 08/30/2011 5:45 PM ROLL UP GUIDER OPERATOR 08/30/2011 5:50 PM ROLL UP GUIDER OPERATOR Shelly Luong CNM CHEMISTRY ORDERABLES [facility] CLIA# [id number] [address] [place] [address] * LACTATE DEHYDROGENASE (08/30/2011 5:45 PM ROLL UP GUIDER OPERATOR) LD (LACTATE DEHYDROGENASE) 182 135 - 214 U/L [facility] LABORATORY SERVICES [facility] Blood specimen (specimen) 08/30/2011 5:45 PM ROLL UP GUIDER OPERATOR 08/30/2011 5:50 PM ROLL UP GUIDER OPERATOR Shelly Ivana Cherise CNM CHEMISTRY ORDERABLES [facility] CLIA# [id number] [address] [place] [address] * AST (08/30/2011 5:45 PM ROLL UP GUIDER OPERATOR) AST 19 12 - 32 U/L [facility] LA BORATORY SERVICES [facility] Blood specimen (specimen) 08/30/2011 5:45 PM ROLL UP GUIDER OPERATOR 08/30/2011 5:50 PM ROLL UP GUIDER OPERATOR Shelly Luong CNM CHEMISTRY ORDERABLES [facility] [employer] [facility] CLIA# [id number] [address] [place] [address] * ALT (08/30/2011 5:45 PM ROLL UP GUIDER OPERATOR) ALT 20 0 - 31 U/L [facility] LAB ORATORY SERVICES [facility] Blood specimen (specimen) 08/30/2011 5:45 PM ROLL UP GUIDER OPERATOR 08/30/2011 5:50 PM ROLL UP GUIDER OPERATOR Shelly Ivana Felipewendie CNM CHEMISTRY ORDERABLES [facility] [employer] [facility] CLBROOKLYN# [id number] [address] [place] [address] * CBC WITH DIFFERENTIAL (08/30/2011 5:45 PM ROLL UP GUIDER OPERATOR) WBC 8.0 4.0 - 9.8 K/uL [facility] RBC 4.39 3.90 - 4.90 M/uL [facility] HEMOGLOBIN 13.1 11.8 - 14.8 g/dL [facility] HEMATOCRIT 39.7 35.5 - 44.0 % [facility] MCV 90.4 82.0 - 99.0 fL [facility] MCH 29.8 27.2 - 32.6 pg [facility] MCHC 33.0 31.5 - 35.5 % [facility] PLATELETS 189 140 - 350 K/uL [facility] MPV 11.5 9.3 - 12.4 fL [facility] RDW 14.3 11.5 - 14.5 % [facility] RDW-STDEV 46.5 37.1 - 48.7 fL [facility] - [facility] NEUTROPHILS 69 45 - 70 % [facility] LYMPHOCYTES 19 16 - 45 % [facility] MONOCYTES 11 3 - 13 % [facility] EOSINOPHILS 1 0 - 7 % [facility] BASOPHILS 0 0 - 2 % [facility] NEUTROPHIL ABSOLUTE 5.56 1.90 - 7.00 K/uL [facility] LYMPHOCYTE ABSOLUTE 1.52 0.70 - 4.50 K/uL [facility] MONOCYTE ABSOLUTE 0.84 0.10 - 1.30 K/uL [facility] EOSINOPHIL ABSOLUTE 0.08 0.00 - 0.70 K/uL [facility] BASOPHILS ABSOLUTE 0.01 0.00 - 0.20 K/uL [facility] Blood specimen (specimen) 08/30/2011 5:45 PM ROLL UP GUIDER OPERATOR 08/30/2011 5:50 PM ROLL UP GUIDER OPERATOR Shelly BRADYM HEMATOLOGY ORDERABLE S [facility]AT[facility] SERVICES [facility] CLIA# [id number] [address] [place] [address] * URINE CULTURE (08/30/2011 5:33 PM ROLL UP GUIDER OPERATOR) FINAL MICRO REPORT Polymicrobial growth present consistent with urethral russel and/or colonizing bacteria. [facility] - [facility] 08/30/2011 5:33 PM ROLL UP GUIDER OPERATOR 08/30/2011 6:43 PM ROLL UP GUIDER OPERATOR Comment:URINE VOIDED Historical Provider MICROBIOLOGY - GENER AL ORDERABLES Performing Organization Address City/[facility]/ZIP Co de Phone Number [facility] CLIA# [id number] [address] [place] [address] * (ABNORMAL) URINALYSIS (08/30/2011 5:33 PM ROLL UP GUIDER OPERATOR) COLOR UA Pale Yellow [facility] CLARITY UA Clear Clear [facility] SPECIFIC GRAVITY UA 1.007 1.001 - 1.035 [facility] PH UA 6.5 5.0 - 8.0 [facility] LEUKOCYTE ESTERASE UA 3+(A) Negative [facility] - . [facility] NITRITE UA Negative Negative [facility] - . [facility] PROTEIN UA Negative Negative [facility] - . [facility] GLUCOSE UA Negative Negative [facility] - . [facility] KETONES UA Negative Negative [facility] UROBILINOGEN UA <1 <=1 mg/dL [facility] - . [facility] BILIRUBIN UA Negative Negative [facility] BLOOD UA Negative Negative [facility] . [facility] WBC UA 3 0 - 5 /HPF [facility] - . [facility] BACTERIA UA 1+(A) None Seen /HPF [facility] EPITHELIAL CELLS, URINE 2-5 /HPF [facility] 08/30/2011 5:33 PM ROLL UP GUIDER OPERATOR 08/30/2011 5:51 PM ROLL UP GUIDER OPERATOR Comment:URINE VOIDED Historical Provider URINE ORDERABLES [facility] - [facility] CLIA# [id number] [address] [place] [address] * URINALYSIS WITH REFLEX CULTURE (08/30/2011 5:33 PM ROLL UP GUIDER OPERATOR) URINE CULTURE ORDER Culture ordered [facility] Comment: Criteria for a reflex culture include one or more of the following: ??Abnormal nitrite, leukocyte esterase, WBCs or RBCs. ??Lack of qualifying criteria does not exclude the possiblity of a urinary tract infection. ??Dilute urine, drug interference, etc. may decrease the sensitivity of the criteria analytes. Urine, clean catch 08/30/2011 5:33 PM ROLL UP GUIDER OPERATOR 08/30/2011 5:51 PM ROLL UP GUIDER OPERATOR Comment:URINE VOIDED Shelly Luong CNM URINE ORDERABLES [facility] CLIA# [id number] [address] [facility] [place] [address] documented in this encounter Visit Diagnoses Not on filedocumented in this encounter Active and Recently Administered Medications Times are shown in ROLL UP GUIDER OPERATOR. Scheduled Medication Order 09/02/2011 09/03/2011 09/04/2011 [...] Mon09/02/11 at 1229, (OB POST-OP PAIN SERVICE) [id number] oxytocin in lactated ringers (PITOCIN) 20 unit/1,000 [...] Phuong Kern RN)1540 (Given - Provider: Phuong Kern, [...] ALEXA) documented in this encounter Care Teams Finisher Screwdown Relationship Specialty Start Date End Date Annalisa Christopher MD [address] [facility] [address] [place] [address] PCP - General 07/07/08 documented as of this encounter
--- OUTSIDE RECORDS SUMMARY | 2024-10-06 18:47 | XMS_ITS | Encounter Summary ---
Author Organization [facility] Address [address] [place] [address] Care Team Providers Care Wet Suit Gluer Name Role Phone Annalisa Christopher MD Primary Care Provider [phone] Reason for Visit * Outpatient Services (Routine) - Closed Specialty Diagnoses / Procedures Referred By Contac t Referred To Contact Ultrasound Diagnoses Malaise and fatigue Elevated liver enzymes Epigastric abdominal pain Procedures US ABDOMEN COMPLETE Mery Villanueva, REHAB LIAISON- [address] [place] [address] Referral ID Status Reason Start Date Expiration Date V isits Requested Visits Authorized [id number] Closed [facility] CTS 09/24/2013 10/25/2014 1 1 Encounter Details Date Type Department Care Team (Latest Contact Info) Description 10/05/2013 8:49 AM CITRIX SYSTEMS ADMINISTRATOR - 10/05/2013 11:59 PM [facility] Hospital Encounter [facility] Ultrasound [place] [address] [place] [phone] Mery Villanueva, REHAB LIAISON-BC [address] [place] [address] Discharge Disposition: Home or Self [...] 0 09/20/2013 05/22/2014 fluticasone (FLONASE) 50 mcg/spray [place], SuspensionIndications :Allergic rhinitis Administer 2 Sprays [...] 8:20 AM CDT Office Visit [facility] Care [address] [place] [address] Annalisa Christopher MD [address] [place] [address] [place] [address] documented as of this encounter Procedures Procedure Name Priority Date/Time Associated Diagnosis Comments US ABDOMEN LIMITED Routine 10/05/2013 9: 15 AM CITRIX SYSTEMS ADMINISTRATOR Malaise and fatigue Elevated liver enzymes Epigastric abdominal pain documented in this encounter Results * US ABDOMEN LIMITED (10/05/2013 9:15 AM CITRIX SYSTEMS ADMINISTRATOR) Anatomical Region Laterality Modality Abdomen Ultrasound 10/05/2013 9:06 AM CITRIX SYSTEMS ADMINISTRATOR Impressions 10/07/2013 7:18 AM CITRIX SYSTEMS ADMINISTRATOR IMPRESSION: Normal ultrasound of the right upper quadrant. Dictated from [facility]. Narrative 10/07/2013 7:18 AM CITRIX SYSTEMS ADMINISTRATOR US ABDOMEN LIMITED. ?? Oct 05, 2013 [...] measuring 3 mm. Vasculature: Unremarkable Procedure Note Duran Smith MD - 10/07/2013 US ABDOMEN LIMITED. [...] of the right upper quadrant. Dictated from [facility]. Mery Villanueva [facility] US ORDERABLES documented in this encounter Visit Diagnoses Diagnosis Malaise and fatigue Other malaise and fatigue Elevated liver enzymes Nonspecific elevation of levels of transaminase or lactic acid dehydrogenase (LDH) Epigastric abdominal pain Abdominal pain, epigastric documented in this encounter Care Teams Wet Suit Gluer Relationship Specialty Start Date End Date Annalisa Christopher MD [address] [place] [address] PCP - General 07/07/08 documented as of this encounter
--- OUTSIDE RECORDS SUMMARY | 2024-10-06 18:47 | XMS_ITS | Encounter Summary ---
Author Organization [facility] Address [address] [place] [address] Care Team Providers Care Python Developer Name Role Phone Annalisa Christopher MD Primary Care Provider [phone] Reason for Visit * Reason Onset Date Comments Vaginal Bleeding 12/13/2011 Encounter Details Date Type Department Care Team (Late Contact Info) Description 12/13/2011 Telephone [facility] QA TESTER - [address] [address] Douglas Patricio MD [address] [place] [address] [place] [address] Vaginal Bleeding Social History Tobacco Use [...] [facility] Primary [facility] - [facility] [address] [place] [address] Annalisa Christopher MD [address] [place] [address] documented as of this encounter Visit Diagnoses Not on filedocumented in this encounter Care Teams Python Developer Relationship Specialty Start Date End Date Annalisa Christopher MD [address] [place] [address] PCP - General 07/07/08 documented as of this encounter
--- OUTSIDE RECORDS SUMMARY | 2024-10-06 18:47 | XMS_ITS | Encounter Summary ---
Author Organization [facility] Address [address] [place] [address] Care Team Providers Care Resident Program Specialist Name Role Phone Annalisa Christopher MD Primary Care Provider [phone] Reason for Visit * Reason Onset Date Comments Information 10/08/2013 Encounter Details Date Type Department Care Team (Late st Contact Info) Description 10/08/2013 Telephone [facility] Primary Care - [facility] [address] [place] [address] [address] [place] [address] Mery Villanueva APRN-GINNA [address] [facility] [address] [place] [address] Information Social History Tobacco Use [...] Mery Villanueva APRN-BC - 10/08/2013 4:07 PM DRAWING MACHINE OPERATOR Patient phoned back today to discuss labs [...] She was evaluated by another PCP within [facility] without any findings. She would like [...] is a good program, may consult with floor supervisor or discuss Rx medications at [facility] with Dr. Christopher. ING MACHINE OPERATOR documented in this encounter Plan of Treatment Upcoming Encounters Date Type Department Care Team (Late st Contact Info) Description 04/25/2025 8:20 AM CDT Office Visit [facility] Primary Care - [facility] [address] [facility] [address] [place] [address] Annalisa Christopher MD [address] [place] [address] [place] [address] documented as of this encounter Visit Diagnoses Not on filedocumented in this encounter Care Teams Resident Program Specialist Relationship Specialty Start Date End Date Annalisa Christopher MD [address] [place] [address] [place] [address] PCP - General 07/07/08 documented as of this encounter
--- OUTSIDE RECORDS SUMMARY | 2024-10-06 18:47 | XMS_ITS | Encounter Summary ---
Author Organization [facility] Address [address] [place] [address] Care Team Providers Care Recreation Clerk Name Role Phone Annalisa Christopher MD Primary Care Provider [phone] Reason for Visit * Reason Onset Date Comments Sore Throat 06/22/2012 Encounter Details Date Type Department Care Team (Late st Contact Info) Description 06/22/2012 Telephone [facility] Primary Care - [address] [place] [address] Annalisa Christopher MD [address] [place] [address] [address] [place] [address] Sore Throat Social History Tobacco [...] has scratchy throat, but no other symptoms Maritime Engineer recommended pt be treated also. L/s 11/09/11 documented in this encounter Plan of Treatment Upcoming Encounters Date Type Department Care Team (Late st Contact Info) Description 04/25/2025 8:20 AM CDT Office Visit [facility] Primary Care - [facility] [address] [facility] [address] [place] [address] Annalisa Christopher MD [address] [facility] [address] [place] [address] documented as of this encounter Visit Diagnoses Not on filedocumented in this encounter Care Teams Recreation Clerk Relationship Specialty Start Date End Date Annalisa Christopher MD [address] [facility] [address] [place] [address] PCP - General 07/07/08 documented as of this encounter
--- OUTSIDE RECORDS SUMMARY | 2024-10-06 18:47 | XMS_ITS | Encounter Summary ---
Author Organization [facility] Address [address] [place] [address] Care Team Providers Care Conditioning Yard Supervisor Name Role Phone Annalisa Christopher MD Primary Care Provider [phone] Reason for Visit * Reason Comments Sinus Problem headache pressure dr marie Memory Loss pt says she has been under alot of stress and shes starting to forget simple things. Fatigue pt says she is alway s tired Encounter Details Date Type Department Care Team (Late st Contact Info) Description 08/05/2013 10:00 AM PREVENTION SPECIALIST Office Visit [facility] Primary Care - [facility] [address] [place] [address] [place] [address] Annalisa Christopher MD [address] [place] [address] [address] [place] [address] Acute sinusitis (Primary Dx); Allergic [...] Comments Blood Pressure 110/74 08/05/2013 10:17 AM PREVENTION SPECIALIST Pulse - - Temperature - - Respiratory Rate - - Oxygen Saturation - - Inhaled Oxygen Concentration - - Weight 83 kg (183 lb) 08/05/2013 10:17 AM PREVENTION SPECIALIST Height 170.2 cm (5' 7 ) 08/05/2013 10:17 AM PREVENTION SPECIALIST Body Mass Index 28.66 08/05/2013 10:17 AM PREVENTION SPECIALIST documented in this encounter Progress Notes * [...] rhinitis - Plan: fluticasone (FLONASE) 50 mcg/spray [place], Suspension - patient will come back for labs and PE Start MVI and vit D3 1,000 ENTION SPECIALIST documented in this encounter Plan of Treatment Upcoming Encounters Date Type Department Care Team (Late st Contact Info) Description 04/25/2025 8:20 AM CDT Office Visit [facility] Primary Care - [facility] [address] [place] [address] Annalisa Christopher MD [address] [facility] [address] [place] [address] documented as of this encounter Visit Diagnoses Diagnosis Acute sinusitis- Primary Acute sinusitis, unspecified Allergic rhinitis Allergic rhinitis, cause unspecified documented in this encounter Care Teams Conditioning Yard Supervisor Relationship Specialty Start Date End Date Annalisa Christopher MD [address] [facility] [address] [place] [address] PCP - General 07/07/08 documented as of this encounter
--- OUTSIDE RECORDS SUMMARY | 2024-10-06 18:47 | XMS_ITS | Encounter Summary ---
Author Organization [facility] Address [address] [place] [address] Care Team Providers Care Grain Elevator Worker Name Role Phone Annalisa Christopher MD Primary Care Provider [phone] Reason for Visit * Reason Onset Date Comments Upper Respiratory Symptoms 05/22/2014 Encounter Details Date Type Department Care Team (Late st Contact Info) Description 05/22/2014 Telephone [facility] Primary Care - [address] [place] [address] Annalisa Christopher MD [address] [place] [address] [address] [place] [address] Upper Respiratory Symptoms Social History [...] [facility] [address] [facility] [address] [place] [address] Annalisa Christopher MD [address] [facility] [address] [place] [address] documented as of this encounter Visit Diagnoses Not on filedocumented in this encounter Care Teams Grain Elevator Worker Relationship Specialty Start Date End Date Annalisa Christopher MD [address] [facility] [address] [place] [address] PCP - General 07/07/08 documented as of this encounter
--- OUTSIDE RECORDS SUMMARY | 2024-10-06 18:47 | XMS_ITS | Encounter Summary ---
Author Organization [facility] Address [address] [place] [address] Care Team Providers Care Third Mate Name Role Phone Annalisa Christopher MD Primary Care Provider [phone] Encounter Details Date Type Department Care Team (Late st Contact Info) Description 09/24/2013 Orders Only [facility] [address] [facility] [address] [place] [address] Mery Villanueva, BREEDING TECHNICIANENCOMPASS [facility] [address] [facility] [address] [place] [address] Malaise and fatigue (Primary Dx); [...] [facility] [address] [facility] [address] [place] [address] Annalisa Christopher MD [address] [place] [address] [address] [place] [address] documented as of this encounter Results * ACUTE HEPATITIS PANEL (10/05/2013 9:28 AM JACQUARD CARD CUTTER) COMMENT See Additional Orderables [facility] Blood specimen (specimen) 10/05/2013 9:28 AM JACQUARD CARD CUTTER 10/05/2013 9:34 AM JACQUARD CARD CUTTER Mery Villanueva BREEDING TECHNICIAN-BC CHEMISTRY ORDERA BLES Performing Organization Address City/[facility]/ZIP Co de Phone Number [facility] CLIA# [id number] [address] [facility] [address] * GGT (10/05/2013 9:28 AM JACQUARD CARD CUTTER) GGT 36 5 - 36 U/L [facility] Blood specimen (specimen) 10/05/2013 9:28 AM JACQUARD CARD CUTTER 10/05/2013 9:35 AM JACQUARD CARD CUTTER Mery Villanueva BREEDING TECHNICIAN- CHEMISTRY ORDERA BLES Performing Organization Address City/[facility] Co de Phone Number [facility] CLIA# [id number] [address] [place] [address] * COMPREHENSIVE METABOLIC PANEL (10/05/2013 9:28 AM JACQUARD CARD CUTTER) SODIUM 141 135 - 145 mmol/L [facility] - . [facility] POTASSIUM 4.1 3.5 - 4.9 mmol/L [facility] - . [facility] CHLORIDE 108 96 - 108 mmol/L [facility] - . [facility] CO2 22 22 - 30 mmol/L [facility] - . [facility] CALCIUM 8.9 8.6 - 10.2 mg/dL [facility] - . [facility] BUN 13 6 - 20 mg/dL [facility] - . [facility] CREATININE 0.73 0.51 - 0.95 mg/dL [facility] - . [facility] GLUCOSE 99 65 - 99 mg/dL [facility] - . [facility] TOTAL PROTEIN 7.4 6.3 - 8.6 g/dL [facility] - [facility] ALBUMIN 4.5 3.4 - 4.8 g/dL [facility] BILIRUBIN TOTAL 0.4 0.2 - 1.0 mg/dL [facility] ALKALINE PHOSPHATASE 76 35 - 104 U/L [facility] AST 20 12 - 32 U/L [facility] ALT 29 0 - 31 U/L [facility] GFR, >60 >=60 mL/min/1. 7 sq meter [facility] GFR >60 >=60 mL/min/1. 7 sq meter [facility] Comment: GFR is calculated using the IDMS-Traceable Modification of Diet in Renal Disease (MDRD) Study formula and is only valid for patients 18 years or older. Further interpretative information is available in the Laboratory Services Policy Manual on the [facility] Intranet at: [email or web address]/ Blood specimen (specimen) 10/05/2013 9:28 AM JACQUARD CARD CUTTER 10/05/2013 9:35 AM JACQUARD CARD CUTTER Mery Villanueva BREEDING TECHNICIAN- CHEMISTRY ORDERA BLES [facility]# [id number] [address] [facility] [place] [address] documented in this encounter Visit Diagnoses Diagnosis Malaise and fatigue- Primary Other malaise and fatigue Elevated liver enzymes Nonspecific elevation of levels of transaminase or lactic acid dehydrogenase (LDH) Epigastric abdominal pain Abdominal pain, epigastric documented in this encounter Care Teams Third Mate Relationship Specialty Start Date End Date Annalisa Christopher MD [address] [place] [address] PCP - General 07/07/08 documented as of this encounter
--- OUTSIDE RECORDS SUMMARY | 2024-10-06 18:47 | XMS_ITS | Encounter Summary ---
Author Organization [facility] Address [address] [place] [address] Care Team Providers Care Director Safety Name Role Phone Annalisa Christopher MD Primary Care Provider [phone] Reason for Visit * Reason Comments Post- Care 2 wks c/sec Encounter Details Date Type Department Care Team (Late st Contact Info) Description 09/13/2011 3:00 PM TREATMENT SUPERVISOR Office Visit [facility] RECRUITER MANAGER - [address] [address] Douglas Patricio MD [address] [place] [address] [place] [address] care and examination immediately after delivery [...] Comments Blood Pressure 118/78 09/13/2011 2:32 PM TREATMENT SUPERVISOR Pulse - - Temperature - - Respiratory Rate - - Oxygen Saturation - - Inhaled Oxygen Concentration - - Weight 92.5 kg (204 lb) 09/13/2011 2:32 PM TREATMENT SUPERVISOR Height 170.2 cm (5' 7 ) 09/13/2011 2:32 PM TREATMENT SUPERVISOR Body Mass Index 31.95 09/13/2011 2:32 PM TREATMENT SUPERVISOR documented in this encounter Progress Notes * [...] if problems arise F/U visit: 4 wks TMENT SUPERVISOR documented in this encounter Plan of Treatment Upcoming Encounters Date Type Department Care Team (Late st Contact Info) Description 04/25/2025 8:20 AM CDT Office Visit [facility] Primary Care - [facility] [address] [place] [address] [place] [address] Annalisa Christopher MD [address] [place] [address] [place] [address] documented as of this encounter Visit Diagnoses Diagnosis care and examination immediately after delivery- Primary documented in this encounter Care Teams Director Safety Relationship Specialty Start Date End Date Annalisa Christopher MD [address] [facility] [address] [place] [address] PCP - General 07/07/08 documented as of this encounter
--- OUTSIDE RECORDS SUMMARY | 2024-10-06 18:47 | XMS_ITS | Encounter Summary ---
Author Organization [facility] Address [address] [place] [address] Care Team Providers Care Edge Roller Name Role Phone Annalisa Christopher MD Primary Care Provider [phone] Reason for Visit * Reason Onset Date Comments Information 09/24/2013 Encounter Details Date Type Department Care Team (Late st Contact Info) Description 09/24/2013 Telephone [facility] Primary Care - [facility] [address] [facility] [address] [place] [address] Mery Villanueva APRN-BC [address] [facility] [address] [place] [address] Information Social History Tobacco Use [...] Mery Villanueva APRN-BC - 09/24/2013 1:26 PM NEWSPAPER OR PERIODICAL EDITOR Patient called back: Patient does not drink alcohol ( very very rare) and had reported fatigue and a vague epigastric pain that has been ongoing for the last few years unsure of how long. Instructed her to call to schedule abdominal US and have labs repeated within the next week. PAPER OR PERIODICAL EDITOR * Telephone Encounter - Kay, Mery FJOCY - 09/24/2013 1:18 PM NEWSPAPER OR PERIODICAL EDITOR Left message for patient to call office regarding lab tests. Recommend appt with myself or MK for repeat blood testing and further assessment for elevated liverenzymes and she has complaint of fatigue. PAPER OR PERIODICAL EDITOR documented in this encounter Plan of Treatment Upcoming Encounters Date Type Department Care Team (Late st Contact Info) Description 04/25/2025 8:20 AM CDT Office Visit [facility] Primary Care - [facility] [address] [facility] [address] [place] [address] Annalisa Christopher MD [address] [facility] [address] [place] [address] documented as of this encounter Visit Diagnoses Not on filedocumented in this encounter Care Teams Edge Roller Relationship Specialty Start Date End Date Annalisa Christopher MD [address] [facility] [address] [place] [address] PCP - General 07/07/08 documented as of this encounter
--- OUTSIDE RECORDS SUMMARY | 2024-10-06 18:47 | XMS_ITS | Encounter Summary ---
Author Organization [facility] Address [address] [place] [address] Care Team Providers Care Editor In Chief Newspaper Name Role Phone Annalisa Christopher MD Primary Care Provider [phone] Reason for Visit * Reason Onset Date Comments Medication Refill 12/09/2011 Encounter Details Date Type Department Care Team (Late st Contact Info) Description 12/09/2011 Refill [facility] Primary Care - [address] [place] [address] Annalisa Christopher MD [address] [place] [address] [place] [address] Social History Tobacco Use Types Packs/Day [...] * Telephone Encounter - Emely Cuadra - 12/12/2011 3:25 PM CDT lmor at pharm. Spoke to pt * Telephone Encounter - Annalisa Christopher MD - 12/09/2011 5:04 PM CDT OK to call in * Telephone Encounter - Estrellita Perdomo - 12/09/2011 4:37 PM CDT MK? * Telephone Encounter - iTana Brothers - 12/09/2011 2:24 PM CDT On d/c list documented in this encounter Plan of Treatment Upcoming Encounters Date Type Department Care Team (Late st Contact Info) Description 04/25/2025 8:20 AM CDT Office Visit [facility] [address] [facility] [address] [place] [address] Annalisa Christopher MD [address] [facility] [address] [place] [address] documented as of this encounter Visit Diagnoses Not on filedocumented in this encounter Care Teams Editor In Chief Newspaper Relationship Specialty Start Date End Date Annalisa Christopher MD [address] [facility] [address] [place] [address] PCP - General 07/07/08 documented as of this encounter
--- OUTSIDE RECORDS SUMMARY | 2024-10-06 18:47 | XMS_ITS | Encounter Summary ---
Author Organization [facility] Address [address] [place] [address] Care Team Providers Care Die Cast Die Maker Name Role Phone Annalisa Christopher MD Primary Care Provider [phone] Reason for Visit * Reason Comments Ultrasound Encounter Details Date Type Department Care Team (Late st Contact Info) Description 11/23/2011 9:00 AM PROPERTY UNDERWRITER Office Visit [facility] ENGINEERING MGR - [facility] [address] [facility] [address] [id number] Griselda Alvarez IUD surveillance (Primary Dx) Social [...] in office today and Ultrasound exam performed. ERTY UNDERWRITER documented in this encounter Plan of Treatment Upcoming Encounters Date Type Department Care Team (Late Contact Info) Description 04/25/2025 8:20 AM CDT Office Visit [facility] Primary Care - [facility] [address] [facility] [address] [place] [address] Annalisa Christopher MD [address] [place] [address] [address] [place] [address] documented as of this [...] Primary documented in this encounter Care Teams Die Cast Die Maker Relationship Specialty Start Date End Date Annalisa Christopher MD [address] [place] [address] PCP - General 07/07/08 documented as of this encounter
--- OUTSIDE RECORDS SUMMARY | 2024-10-06 18:47 | XMS_ITS | Encounter Summary ---
Author Organization [facility] Address [address] [place] [address] Care Team Providers Care Wood Lathe Operator Name Role Phone Annalisa Christopher MD Primary Care Provider [phone] Reason for Visit * Reason Comments Medication Refill Encounter Details Date Type Department Care Team (Late st Contact Info) Description 09/20/2014 Refill [facility] [address] [place] [address] [address] [place] [address] Annalisa Christopher MD [address] [place] [address] [address] [place] [address] Social History Tobacco Use Types [...] CDT Office Visit [facility] [address] [place] [address] [address] [place] [address] Annalisa Christopher MD [address] [place] [address] [address] [place] [address] documented as of this encounter Visit Diagnoses Not on filedocumented in this encounter Care Teams Wood Lathe Operator Relationship Specialty Start Date End Date Annalisa Christopher MD [address] [place] [address] PCP - General 07/07/08 documented as of this encounter
--- OUTSIDE RECORDS SUMMARY | 2024-10-06 18:48 | XMS_ITS | Encounter Summary ---
Author Organization [facility] Address [address] [place] [address] Care Team Providers Care Mitten Stitcher Name Role Phone Annalisa Christopher MD Primary Care Provider [phone] Encounter Details Date Type Department Care Team (Late st Contact Info) Description 10/23/2003 Outpatient Historical [facility] BUTADIENE CONVERTER HELPER - [facility] [address] [place] [address] Gavin Hadley MD [address] [place] [address] Social History Tobacco Use Types [...] Visit [facility] - [facility] [address] [place] [address] Annalisa Christopher MD [address] [place] [address] documented as of this encounter Visit Diagnoses Not on filedocumented in this encounter Care Teams Mitten Stitcher Relationship Specialty Start Date End Date Annalisa Christopher MD [address] [place] [address] PCP - General 07/07/08 documented as of this encounter
--- OUTSIDE RECORDS SUMMARY | 2024-10-06 18:48 | XMS_ITS | Encounter Summary ---
Author Organization [facility] Address [address] [place] [address] Care Team Providers Care Ice Cream Van Vendor Name Role Phone Annalisa Christopher MD Primary Care Provider [phone] Reason for Visit * Auth/Cert - Closed Specialty Diagnoses / Procedures Referred By Contac t Referred To Contact General Surgery Diagnoses MISSED AB Procedures DILATATION AND CURETTAGE SUCTION [facility] [address] [place] [address] Referral ID Status Reason Start Date Expiration Date Visits Re quested Visits Authorized [id number] Closed 09/07/2010 03/06/2011 1 Encounter Details Date Type Department Care Team (Late st Contact Info) Description 09/08/2010 3:30 PM EDGE BRUSHER - 09/08/2010 4:20 PM EDGE BRUSHER Surgery [facility] Operating Room [address] [place] [address] Douglas Jeffrey MD [address] [facility] [address] [place] [address] DILATATION AND CURETTAGE SUCTION Surgery Details [...] Comments Blood Pressure 109/63 09/08/2010 4:15 PM EDGE BRUSHER Pulse 96 09/08/2010 4:15 PM EDGE BRUSHER Temperature 36.6 ??C (97.8 ??F) 09/08/2010 4:07 PM CS T Respiratory Rate 18 09/08/2010 4:15 PM EDGE BRUSHER Oxygen Saturation 98% 09/08/2010 4:15 PM EDGE BRUSHER Inhaled Oxygen Concentration - - Weight 78 kg (172 lb) 09/07/2010 1:11 PM EDGE BRUSHER Height 170.2 cm (5' 7 ) 09/07/2010 1:11 PM EDGE BRUSHER Body Mass Index 26.94 09/07/2010 1:11 PM EDGE BRUSHER documented in this encounter Discharge Instructions * Discharge Instructions* Phuong Metz RN - 09/08/2010 5:15 PM EDGE BRUSHER D & C INSTRUCTION SHEET The cervix [...] or come to the Emergency Room at [place] ([phone]) or the nearest Emergency Room. In an emergency, Call 911. BRUSHER documented in this encounter H&P Notes * Nathalia Alexander MD - 09/08/2010 3:00 PM CST Subjective: Fabiana Dias is a 35 y.o. female who presents for dilation and curettage 2/2 missed . She is 13w by dates, was recently evaluated for first trimester bleeding at [facility] emergency room. US at that time showed [...] All questions were answered. Nathalia Alexander MD BRUSHER documented in this encounter OR Notes * OR Anesthesia - Armando Dickerson [facility] - 09/09/2010 2:39 PM EDGE BRUSHER * Louise-OP - Phuong Metz RN - [...] pain/comfort utilizing verbal/nonverbal pain scales; assess culturalor jew indicators attached to pain; administer pain medications as prescribed; utilize non-pharmacologic pain control and comfort measures Expected Outcome: Patient demonstrates and reports adequate pain control Outcome Met: yes BRUSHER * OR Anesthesia - Harmony Nugent MD [...] complications Harmony Nugent MD 09/08/2010 4:34 PM BRUSHER * Louise-OP - Isabelle Cabrera RN - 09/08/2010 4:14 PM CST Pt to recovery slot 12 by bed, placed on monitor, VSS. Resp even and unlabored. Peripad placed no drainage noted. Report received from AA. BRUSHER * Operative Report - Nathalia Alexander MD - 09/08/2010 4:07 PM CST DATE OF SERVICE: 09/08/2010 PREOPERATIVE DIAGNOSIS 1. Missed 2. IUP @ 13w by dates and 9w by size POSTOPERATIVE DIAGNOSIS 1. Missed OPERATION NAME Suction dilation and curettage SURGEON Douglas Jeffrey MD REMOTE CONTROL MIRROR INSTALLER Nathalia Alexander MD PGY1 ANESTHESIA General COMPLICATIONS [...] for pathology and cytogenetics Nathalia Alexander MD BRUSHER * Louise-OP - Melani Dang RN - 09/08/2010 4:06 PM CST Cytogenetics collected. BRUSHER * OR Anesthesia - Maribel Espino MD - 09/08/2010 2:58 PM CST Pre-Anesthesia Evaluation - Long Form 09/08/2010 2:58 PM Name: Fabiana Dias Age: 35 y.o. Sex: female CSN: [id number] Procedure: Procedure(s): DILATATION AND CURETTAGE SUCTION Surgeons/Assistants: [...] solicited and answered. Yes Maribel Espino MD BRUSHER documented in this encounter Miscellaneous Notes * Scanned Form - Stl Scanning, [facility] - 09/09/2010 2:39 PM EDGE BRUSHER * Scanned Form - Stl Scanning, [facility] - 09/09/2010 2:39 PM EDGE BRUSHER * Scanned Form - Stl Scanning, [facility] - 09/09/2010 2:39 PM EDGE BRUSHER * Patient Instructions - Stl Scanning, [facility] - 09/09/2010 2:39 PM EDGE BRUSHER * Scanned Form - Stl Scanning, [facility] - 09/09/2010 2:39 PM EDGE BRUSHER * Scanned Form - Stl Scanning, [facility] - 09/09/2010 2:39 PM EDGE BRUSHER documented in this encounter Plan of Treatment Upcoming Encounters Date Type Department Care Team (Late st Contact Info) Description 04/25/2025 8:20 AM CDT Office Visit [facility] Primary Care - [address] [place] [address] Annalisa Christopher MD [address] [place] [address] [place] [address] documented as of this encounter Procedures Procedure Name Priority Date/Time Associated Diagnosis Comments CHROMOSOME ANALYSIS, TISSUE Routine 09/09/2010 4:29 PM EDGE BRUSHER PATHOLOGY Routine 09/08/2010 5:00 PM EDGE BRUSHER DILATATION AND CURETTAGE SUCTION 09/08/2010 2:50 PM EDGE BRUSHER MISSED AB Case Notes PENDING TYPE AND SCREEN Stat 09/08/2010 2:45 PM EDGE BRUSHER documented in this encounter Results * CHROMOSOME ANALYSIS, TISSUE (09/09/2010 4:29 PM EDGE BRUSHER) CYTOGENETICS INDICATIONS spontaneous [facility] GESTATIONAL AGE ON DATE OF ULTRASOUND ng Weeks [facility] KARYOTYPE NO ANALYSIS POSSIBLE [facility] CHROMOSOME RESULTS No cell growth occurred in tissue culture, and therefore chromosome analysis was not possible. [facility] CYTOGENETICS SPECIMEN POC [facility] METAPHASES COUNTED 0 [facility] METAPHASES ANALYZED 0 [facility] METAPHASES KARYOTYPED 0 [facility] NUMBER OF CULTURES 0 [facility] BANDING TECHNIQUE GTW [facility] BANDING RESOLUTION 0 [facility] JOB FORWARDER, REF LAB Fariba Kc, Ph.D. [facility] Comment: Testing performed at [employer] [facility] [address] [place] [address] 09/09/2010 4:29 PM EDGE BRUSHER 09/09/2010 4:34 PM EDGE BRUSHER Comment:TISSUE Douglas Jeffrey MD BODY FLUIDS AND STOO LS COM [facility] CLIA# [id number] [address] [place] [address] * PATHOLOGY (09/08/2010 5:00 PM EDGE BRUSHER) SURGICAL PATHOLOGY ?[facility] ?[address] ? . [place], [place] ??[address] ? Patient: ??FABIANA DIAS ? : ??1975 ? Procedure Date: ??09/08/2010 ? Accession Date: ??09/09/2010 ? Case No: ??[id number] ? Ordering Dr: ??DOUGLAS JEFFREY ? Case type SW is performed by [facility], [address], ? [place], [place] ??[address]; all other case types are performed by [facility] ? [facility], [address] [place], [place] ??[address] ?SURGICAL PATHOLOGY & NON-GYNECOLOGIC CYTOPATHOLOGY REPORT ? [...] are identified. No structures ? are seen. Acquisitions Logistics Analyst sections are submitted in cassettes A1 through A4. ? LWL/TOM 09.09.2010 01:16 pm ? Microscopic: ? The slides are labeled [id number] and Fabiana Dias. ? The specimen consists of an admixture of hemorrhagic and inflamed decidua, ? gestational endometrium, membranes, and immature fibrotic chorionic ? villi. A few tissue fragments consistent with parts are also ? identified. ? GL/DRC 09.13.2010 03:57 pm ? Staging Form: ? No. ? ELECTRONIC SIGNATURE FOR YUMIKO SOLANO M.D.- 09/13/10 09:53 pm [facility] Specimen of unknown material (specimen) 09/08/2010 5:00 PM EDGE BRUSHER Douglas Jeffrey MD PATHOLOGY/CYTOLOGY O RDERABLES [facility] CLIA# [id number] [address] [place] [address] * TYPE AND SCREEN (09/08/2010 2:45 PM EDGE BRUSHER) HISTORY CHECK History Checked [facility] ABO/RH TYPE B Positive [facility] SPECIMEN LIFE 3 days from drawdate [facility] ANTIBODY SCREEN Negative [facility] Blood specimen (specimen) 09/08/2010 2:45 PM EDGE BRUSHER 09/08/2010 3:09 PM EDGE BRUSHER Douglas Jeffrey MD BLOOD BANK ORDERABLE S Performing Organization Address [facility] [address]/ZIP Co de Phone Number INTERFACE SYSTEM Refer to clinic/hospital department [facility] CLIA# [id number] [address] [place] [address] documented in this encounter Visit Diagnoses Not on filedocumented in this encounter Administered Medications Inactive Administered Medications - up to 3 most recent administrations Medication Order MAR Action Action Date Dose Rate Site ceFAZolin (ANCEF) IVPB 1,000 mg 1,000 mg, IV, PRE-PROCEDURE ONCE, 1 dose, Starting on Mon09/08/10 at 1441, Until Mon09/08/10 at 1540, Routine Given 09/08/2010 3:40 PM EDGE BRUSHER 1,000 mg ibuprofen (MOTRIN) tablet 600 mg 600 mg, Oral, EVERY 6 HOURS PRN, Starting on Mon09/08/10 at 1607, Until Mon09/08/10 at 2044, Pain, Routine Given 09/08/2010 5:56 PM EDGE BRUSHER 600 mg lactated ringers solution IV, at 150 mL/hr, PRE-PROCEDURE CONTINUOUS, Starting on Mon09/08/10 at 1445, Until Mon09/08/10 at 2044, Routine New Bag 09/08/2010 3:10 PM EDGE BRUSHER 150 mL/hr documented in this encounter Active and Recently Administered Medications Times are shown in EDGE BRUSHER. Scheduled Medication Order 09/06/2010 09/07/2010 09/08/2010 ceFAZolin [...] RN) documented in this encounter Care Teams Ice Cream Van Vendor Relationship Specialty Start Date End Date Annalisa Christopher MD [address] [facility] [address] [place] [address] PCP - General 07/07/08 documented as of this encounter
--- OUTSIDE RECORDS SUMMARY | 2024-10-06 18:48 | XMS_ITS | Encounter Summary ---
Author Organization [facility] Address [address] [place] [address] Care Team Providers Care Auditor Supervisor Name Role Phone Annalisa Christopher MD Primary Care Provider [phone] Reason for Visit * Reason Comments Routine Visit Encounter Details Date Type Department Care Team (Latest Contact Info) Description 04/27/2011 9:30 AM CDT visit [facility] TABLE MACHINE OPERATOR - Medical [address] [address] Douglas Patricio MD [address] [place] [address] Supervision of other normal (Primary Dx) [...] Visit [facility] Primary Care - [facility] [address] [facility] [address] [place] [address] Annalisa Christopher MD [address] [place] [address] documented as of this encounter Visit Diagnoses Diagnosis Supervision of other normal - Primary documented in this encounter Care Teams Auditor Supervisor Relationship Specialty Start Date End Date Annalisa Christopher MD [address] [place] [address] PCP - General 07/07/08 documented as of this encounter
--- OUTSIDE RECORDS SUMMARY | 2024-10-06 18:48 | XMS_ITS | Encounter Summary ---
Author Organization [facility] Address [address] [place] [address] Care Team Providers Care Liquid Floor And Wall Applier Name Role Phone Annalisa Christopher MD Primary Care Provider [phone] Encounter Details Date Type Department Care Team (Late st Contact Info) Description 10/11/2004 Outpatient Historical [facility] CRYSTAL FLAT GRINDER - [facility] [address] [facility] [address] [place] [address] Gavin Hadley MD [address] [place] [address] Social History Tobacco Use Types [...] [facility] Primary [facility] - [facility] [address] [place] [address] Annalisa Christopher MD [address] [place] [address] documented as of this encounter Visit Diagnoses Not on filedocumented in this encounter Care Teams Liquid Floor And Wall Applier Relationship Specialty Start Date End Date Annalisa Christopher MD [address] [place] [address] PCP - General 07/07/08 documented as of this encounter
--- OUTSIDE RECORDS SUMMARY | 2024-10-06 18:48 | XMS_ITS | Encounter Summary ---
Author Organization [facility] Address [address] [place] [address] Care Team Providers Care Clinical Rehabilitation Specialist Name Role Phone Annalisa Christopher MD Primary Care Provider [phone] Encounter Details Date Type Department Care Team (Late st Contact Info) Description 09/04/2003 Outpatient Historical [facility] DAY TRADER - [facility] [address] [facility] [address] [place] [address] Gavin Hadley MD [address] [place] [address] Social History Tobacco Use Types [...] Visit [facility] Primary Care - [facility] [address] [place] [address] Annalisa Christopher MD [address] [place] [address] documented as of this encounter Visit Diagnoses Not on filedocumented in this encounter Care Teams Clinical Rehabilitation Specialist Relationship Specialty Start Date End Date Annalisa Christopher MD [address] [place] [address] PCP - General 07/07/08 documented as of this encounter
--- OUTSIDE RECORDS SUMMARY | 2024-10-06 18:48 | XMS_ITS | Encounter Summary ---
Author Organization [facility] Address [address] [place] [address] Care Team Providers Care Repair Department Manager Name Role Phone Annalisa Christopher MD Primary Care Provider [phone] Reason for Visit * Reason Comments Well Woman Exam Test Positive Encounter Details Date Type Department Care Team (Latest Contact Info) Description 02/01/2011 11:30 AM CDT Office Visit [facility] EXTENSION SERVICE ADVISOR - [address] [address] Douglas Patricio MD [address] [place] [address] [place] [address] Routine gynecological examination; Screening examination for [...] non Patient's last menstrual period was 12/13/2010. Associate Sales Representative complaints: ; prior @ term, demise, cord [...] changes in weight. No urinary tract symptoms. SENIOR WIND TURBINE TECHNICIAN ROS: normal menses, no abnormal bleeding, pelvic [...] Visit [facility] Primary Care - [facility] [address] [place] [address] Annalisa Christopher MD [address] [place] [address] documented as of this encounter Procedures Procedure Name Priority Date/Time Associated Diagnosis Comments POC , URINE Routine 02/01/2011 3:43 PM CDT examination or test, positive result documented in this encounter Results * (ABNORMAL) POC , URINE (02/01/2011 3:43 PM CDT) HCG QUAL URINE NEG PHYSI [facility] , URINE POC POSITIVE [facility] SPECIFIC GRAVITY UA 1.001 - 1.035 [facility] HCG QUAL URINE COMMENT [facility] Urine specimen (specimen) 02/01/2011 3:43 PM CDT Douglas Patricio MD POINT OF CARE TESTIN G [facility] * PROGESTERONE (02/01/2011 12:06 PM CDT) PROGESTERONE 20.4 ng/mL [facility] Comment: Progesterone Reference Range: ?Female: Normally Menstruating Female ? Follicular Phase ?0.2 - 1.5 ??ng/mL ? Ovulation Phase ? 0.8 - 3.0 ??ng/mL ? Luteal Phase ?1.7 - 27.0 ng/mL ? Postmenopausal ?0.1 - 0.8 ??ng/mL No Pediatric Reference Range Available. Blood specimen (specimen) 02/01/2011 12:06 PM CDT 02/01/2011 1:48 PM CDT Douglas Patricio MD CHEMISTRY ORDERABLES [facility] CLIA# [id number] [address] [place] [address] * (ABNORMAL) HCG QUANTITATIVE, BLOOD (02/01/2011 12:06 PM CDT) HCG QUANT, BLOOD 137,992(H ) 0 - 5 mIU/mL [facility] Comment: Result of 5 - 25 mIU/mL is indeterminant for , repeat of test recommemded in 48 hours. Reference Range: Gestational Age: 3 ??Weeks ?5.8 - 71.2 ?mIU/mL 4 ??Weeks ?9.5 - 750 ? mIU/mL 5 ??Weeks ?217 - 8963 ?mIU/mL 6 ??Weeks ?158 - 31,795 ?mIU/mL [...] Patricio MD CHEMISTRY ORDERABLES Performing Organization Address City/State/[facility] Co de Phone Number [facility] CLIA# [id number] [address] [place] [address] * CHLAMYDIA AND GC, PAP VIAL (02/01/2011 10:43 AM CDT) CHLAMYDIA TRACHOMATIS DNA NOT DETECTED [facility] Comment:Reference Range: Not Detected GC DNA AMPLIFICATION NOT DETECTED [facility] Comment:Reference Range: Not Detected GC AND CHLAMYDIA PROBE COMMENT See Result Comment [facility] Comment: This test was performed using the BD ProbeTec(TM) Chlamydia trachomatis and Neisseria gonorrhoeae Amplified DNA Assays. ? Lab test performed by: [facility] [address] [place] [address] NELSON FRENCH DO Endocervical 02/01/2011 10:4 3 AM CDT 02/01/2011 2:10 PM CDT Comment:ENDOCERVICAL Douglas Patricio MD BODY FLUIDS AND STOO LS COM Performing Organization Address [facility] Co de Phone Number [facility] CLIA# [id number] [address] [place] [address] * CERV/VAG CYTOPATH, SUREPATH W/RFLX HPV (02/01/2011 10:43 AM CDT) CLINICAL INFORMATION [facility] PREV PAP: 10 22 10 [facility] LAST MENSTRUAL PERIOD 12 13 11 [facility] PAP INTERP Negative for intraepithelial lesion or malignancy. [facility] Associate Sales Representative Pap Comment Based on the cytology result, reflex High Risk HPV DNA testing was not performed. [facility] ADEQUACY: Satisfactory for evaluation. Endocervical/trans formation zone component present. [facility] SOURCE Endoc[employer]ix [facility] CYTOTECHNOLOGI ST: MMW, CT(ASCP) [facility] Comment: ? Lab test performed by: [facility] [address] [place] [address] NELSON FRENCH DO PREV BX: Information not provided [facility] REPORT STATUS FINAL [facility] Endocervical 02/01/2011 10:4 3 AM CDT 02/01/2011 2:10 PM CDT Comment:ENDOCERVICAL Douglas Patricio MD PATHOLOGY/CYTOLOGY O RDERABLES Performing Organization Address [facility] Co de Phone Number [facility] CLIA# [id number] [address] [place] [address] documented in this encounter Visit Diagnoses Diagnosis Routine gynecological examination Screening examination for venereal disease examination or test, positive result Vaginal yeast infection Candidiasis of vulva and vagina examination or test, positive result documented in this encounter Care Teams Repair Department Manager Relationship Specialty Start Date End Date Annalisa Christopher MD [address] [place] [address] PCP - General 07/07/08 documented as of this encounter
--- OUTSIDE RECORDS SUMMARY | 2024-10-06 18:48 | XMS_ITS | Encounter Summary ---
Author Organization [facility] Address [address] [place] [address] Care Team Providers Care Boiler Service Technician Name Role Phone Annalisa Christopher MD Primary Care Provider [phone] Reason for Visit * Reason Onset Date Comments Upper Respiratory Symptoms 05/01/2009 Encounter Details Date Type Department Care Team (Late st Contact Info) Description 05/01/2009 Telephone [facility] Primary Care - [address] [place] [address] Annalisa Christopher MD [address] [place] [address] [address] [place] [address] Upper Respiratory Symptoms Social History [...] [facility] Primary Care - [facility] [address] [facility] [address] [place] [address] Annalisa Christopher MD [address] [facility] [address] [place] [address] documented as of this encounter Visit Diagnoses Diagnosis UTI Urinary tract infection, site not specified documented in this encounter Care Teams Boiler Service Technician Relationship Specialty Start Date End Date Annalisa Christopher MD [address] [facility] [address] [place] [address] PCP - General 07/07/08 documented as of this encounter
--- OUTSIDE RECORDS SUMMARY | 2024-10-06 18:48 | XMS_ITS | Encounter Summary ---
Author Organization [facility] Address [address] [place] [address] Care Team Providers Care Technical Applications Specialist Name Role Phone Annalisa Christopher MD Primary Care Provider [phone] Reason for Visit * Reason Comments Initial Visit Encounter Details Date Type Department Care Team (Latest Contact Info) Description 03/01/2011 11:45 AM CDT Initial [facility] RN PEDIATRIC - [address] [place] [address] Douglas Patricio MD [address] [place] [address] [place] [phone] Supervision of other normal (Primary Dx) [...] Progress Notes * Douglas Patricio MD - 03/01/2011 1:04 PM CDT [...] [facility] [place] Primary Care - [facility] [address] [facility] [address] [place] [address] Annalisa Christopher MD [address] [facility] [address] [place] [address] documented as of this encounter Visit Diagnoses Diagnosis Supervision of other normal - Primary documented in this encounter Care Teams Technical Applications Specialist Relationship Specialty Start Date End Date Annalisa Christopher MD [address] [facility] [address] [place] [address] PCP - General 07/07/08 documented as of this encounter
--- OUTSIDE RECORDS SUMMARY | 2024-10-06 18:48 | XMS_ITS | Encounter Summary ---
Author Organization [facility] Address [address] [place] [address] Care Team Providers Care Logging Crew Supervisor Name Role Phone Annalisa Christopher MD Primary Care Provider [phone] Reason for Visit * Reason Comments Dizziness x2 days Headache Neck Pain Nausea Encounter Details Date Type Department Care Team (Late st Contact Info) Description 07/07/2008 12:30 PM CDT Office Visit [facility] Primary Care - [address] [place] [address] Annalisa Christopher MD [address] [place] [address] [place] [address] Benign Paroxysmal Vertigo (Primary Dx) Social [...] 04/25/2025 8:20 AM CDT Office Visit [facility] [place] [address] [place] [address] Annalisa Christopher MD [address] [place] [address] documented as of this encounter Visit Diagnoses Diagnosis Benign paroxysmal vertigo- Primary Benign paroxysmal positional vertigo documented in this encounter Care Teams Logging Crew Supervisor Relationship Specialty Start Date End Date Annalisa Christopher MD [address] [place] [address] PCP - General 07/07/08 documented as of this encounter
--- OUTSIDE RECORDS SUMMARY | 2024-10-06 18:48 | XMS_ITS | Encounter Summary ---
Author Organization [facility] Address [address] [place] [address] Care Team Providers Care Machine Rigger Name Role Phone Annalisa Christopher MD Primary Care Provider [phone] Encounter Details Date Type Department Care Team (Latest Contact Info) Description 12/27/2007 Outpatient Historical [facility] [address] [place] [address] [place] [address] Annalisa Christopher MD [address] [place] [address] [place] [address] Iron Deficiency Anemia Secondary to Blood [...] CDT Office Visit [facility] [address] [place] [address] [place] [address] Annalisa Christopher MD [address] [place] [address] [address] [place] [address] documented as of this encounter Procedures Procedure Name Priority Date/Time Associated Diagnosis Comments CBC WITH DIFFERENTIAL Routine 12/27/2007 1:34 PM CDT documented in this encounter Results * CBC WITH DIFFERENTIAL (12/27/2007 1:34 PM CDT) WBC 6.8 4.0 - 9.8 K/uL [facility] MCH 30.1 27.2 - 32.6 pg [facility] MPV 11.1 9.3 - 12.4 fL [facility] HEMATOCRIT 40.0 35.5 - 44.0 % [facility] RDW-STDEV 44.4 37.1 - 48.7 fL [facility] RBC 4.38 3.90 - 4.90 M/uL [facility] MCHC 33.0 31.5 - 35.5 % [facility] MCV 91.3 82.0 - 99.0 fL [facility] PLATELETS 222 140 - 350 K/uL [facility] HEMOGLOBIN 13.2 11.8 - 14.8 g/dL [facility] RDW 13.3 11.5 - 14.5 % [facility] BASOPHILS 0 0 - 2 % [facility] BASOPHILS ABSOLUTE 0.02 0.00 - 0.20 K/uL [facility] MONOCYTES 9 3 - 13 % [facility] MONOCYTE ABSOLUTE 0.64 0.10 - 1.30 K/uL [facility] NEUTROPHILS 61 45 - 70 % [facility] NEUTROPHIL ABSOLUTE 4.16 1.90 - 7.00 K/uL [facility] EOSINOPHILS 1 0 - 7 % [facility] EOSINOPHIL ABSOLUTE 0.07 0.00 - 0.70 K/uL [facility] LYMPHOCYTES 29 16 - 45 % [facility] LYMPHOCYTE ABSOLUTE 1.95 0.70 - 4.50 K/uL [facility] Blood specimen (specimen) 12/27/2007 1:34 PM CDT 12/27/2007 5:05 PM CDT Annalisa Christopher MD HEMATOLOGY ORDERABLE S [facility] [address] [place] [address] documented in this encounter Visit Diagnoses Diagnosis Iron deficiency anemia secondary to blood loss (chronic) documented in this encounter Care Teams Machine Rigger Relationship Specialty Start Date End Date Annalisa Christopher MD [address] [place] [address] PCP - General 07/07/08 documented as of this encounter
--- OUTSIDE RECORDS SUMMARY | 2024-10-06 18:48 | XMS_ITS | Encounter Summary ---
Author Organization [facility] Address [address] [place] [address] Care Team Providers Care Residential Real Estate Assistant Name Role Phone Annalisa Christopher MD Primary Care Provider [phone] Reason for Visit * Reason Onset Date Comments Yeast Infection 02/17/2011 Encounter Details Date Type Department Care Team (Late st Contact Info) Description 02/17/2011 Telephone [facility] FACILITIES CUSTODIAN - [address] [address] Douglas Patricio MD [address] [place] [address] [place] [phone] Yeast Infection Social History Tobacco Use [...] Office Visit [facility] Care [facility] [address] [facility] [address] [place] [address] Annalisa Christopher MD [address] [facility] [address] [place] [address] documented as of this encounter Visit Diagnoses Not on filedocumented in this encounter Care Teams Residential Real Estate Assistant Relationship Specialty Start Date End Date Annalisa Christopher MD [address] [facility] [address] [place] [address] PCP - General 07/07/08 documented as of this encounter
--- OUTSIDE RECORDS SUMMARY | 2024-10-06 18:48 | XMS_ITS | Encounter Summary ---
Author Organization [facility] Address [address] [place] [address] Care Team Providers Care Counter Checker Name Role Phone Annalisa Christopher MD Primary Care Provider [phone] Encounter Details Date Type Department Care Team (Late st Contact Info) Description 12/27/2007 Outpatient Historical [facility] [address] [place] [address] Annalisa Christopher MD [address] [place] [address] [address] [place] [address] Social History Tobacco Use Types [...] CDT Office Visit [facility] [address] [place] [address] Annalisa Christopher MD [address] [place] [address] [address] [place] [address] documented as of this encounter Visit Diagnoses Not on filedocumented in this encounter Care Teams Counter Checker Relationship Specialty Start Date End Date Annalisa Christopher MD [address] [place] [address] PCP - General 07/07/08 documented as of this encounter
--- OUTSIDE RECORDS SUMMARY | 2024-10-06 18:48 | XMS_ITS | Encounter Summary ---
Author Organization [facility] Address [address] [place] [address] Care Team Providers Care Nightman Name Role Phone Annalisa Christopher MD Primary Care Provider [phone] Encounter Details Date Type Department Care Team (Late st Contact Info) Description 05/08/2003 Outpatient Historical [facility] TOPPER PRESS OPERATOR AUTOMATIC - [facility] [address] [facility] [address] [place] [address] Gavin Hadley MD [address] [place] [address] Social History Tobacco Use Types [...] [facility] Primary Care - [facility] [address] [place] [address] Annalisa Christopher MD [address] [address] [place] [address] documented as of this encounter Visit Diagnoses Not on filedocumented in this encounter Care Teams Nightman Relationship Specialty Start Date End Date Annalisa Christopher MD [address] [place] [address] PCP - General 07/07/08 documented as of this encounter
--- OUTSIDE RECORDS SUMMARY | 2024-10-06 18:48 | XMS_ITS | Encounter Summary ---
Author Organization [facility] Address [address] [place] [address] Care Team Providers Care Box Hinge And Lock Attacher Name Role Phone Annalisa Christopher MD Primary Care Provider [phone] Encounter Details Date Type Department Care Team (Late st Contact Info) Description 06/24/2005 Outpatient Historical [facility] Primary Care - [address] [place] [address] Kacey Potter MD NO ADDRESS [...] [facility] Primary Care - [facility] [address] [facility] [address] [place] [address] Annalisa Christopher MD [address] [place] [address] [place] [address] documented as of this encounter Visit Diagnoses Not on filedocumented in this encounter Care Teams Box Hinge And Lock Attacher Relationship Specialty Start Date End Date Annalisa Christopher MD [address] [place] [address] PCP - General 07/07/08 documented as of this encounter
--- OUTSIDE RECORDS SUMMARY | 2024-10-06 18:48 | XMS_ITS | Encounter Summary ---
Author Organization [facility] Address [address] [place] [address] Care Team Providers Care Hide Curer Name Role Phone Annalisa Christopher MD Primary Care Provider [phone] Encounter Details Date Type Department Care Team (Late st Contact Info) Description 07/14/2006 Outpatient Historical [facility] Primary Care - [address] [place] [address] Kacey Potter MD NO ADDRESS [...] Visit [facility] Primary Care - [facility] [address] [facility] [address] [place] [address] Annalisa Christopher MD [address] [place] [address] Rd [address] [place] [address] documented as of this encounter Visit Diagnoses Not on filedocumented in this encounter Care Teams Hide Curer Relationship Specialty Start Date End Date Annalisa Christopher MD [address] [place] [address] PCP - General 07/07/08 documented as of this encounter
--- OUTSIDE RECORDS SUMMARY | 2024-10-06 18:48 | XMS_ITS | Encounter Summary ---
Author Organization [facility] Address [address] [place] [address] Care Team Providers Care Corporate Safety Manager Name Role Phone Annalisa Christopher MD Primary Care Provider [phone] Encounter Details Date Type Department Care Team (Late st Contact Info) Description 12/29/2005 Outpatient Historical [facility] APPRENTICE PATTERN MAKER - [facility] [address] [facility] [address] [place] [address] Douglas Patricio MD [address] [facility] [address] [place] [address] Social History Tobacco Use Types Packs/Day [...] Visit [facility] Primary Care - [facility] [address] [facility] [address] [place] [address] Annalisa Christopher MD [address] [place] [address] [address] [place] [address] documented as of this encounter Visit Diagnoses Not on filedocumented in this encounter Care Teams Corporate Safety Manager Relationship Specialty Start Date End Date Annalisa Christopher MD [address] [place] [address] [address] [place] [address] PCP - General 07/07/08 documented as of this encounter
--- OUTSIDE RECORDS SUMMARY | 2024-10-06 18:48 | XMS_ITS | Encounter Summary ---
Author Organization [facility] Address [address] [place] [address] Care Team Providers Care Transportation Solutions Manager Name Role Phone Annalisa Christopher MD Primary Care Provider [phone] Encounter Details Date Type Department Care Team (Late st Contact Info) Description 12/27/2007 Orders Only [facility] Primary [facility] - [facility] [address] [place] [address] [address] [place] [address] Annalisa Christopher MD [address] [place] [address] [address] [place] [address] Social History Tobacco Use Types [...] for 10 to 15 years. 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 [...] 280.0-[facility] ORDERS: Order number: [id number] Test Ordered: CBC W/ DIFFERENTIAL 3150 HEALTH [...] Office Visit [facility] Primary [facility] - [facility] [address] [facility] [address] [place] [address] Annalisa Christopher MD [address] [place] [address] documented as of this encounter Visit Diagnoses Not on filedocumented in this encounter Care Teams Transportation Solutions Manager Relationship Specialty Start Date End Date Annalisa Christopher MD [address] [place] [address] PCP - General 07/07/08 documented as of this encounter
--- OUTSIDE RECORDS SUMMARY | 2024-10-06 18:48 | XMS_ITS | Encounter Summary ---
Author Organization [facility] Address [address] [place] [address] Care Team Providers Care Sole Seamer Name Role Phone Annalisa Christopher MD Primary Care Provider [phone] Reason for Visit * Reason Onset Date Comments Results 09/06/2010 Encounter Details Date Type Department Care Team (Late st Contact Info) Description 09/06/2010 Telephone [facility] AUTOMOTIVE LUBE TECHNICIAN - [address] [address] Douglas Patricio MD [address] [place] [address] [place] [phone] Results Social History Tobacco Use Types [...] - 09/06/2010 1:32 PM CST Was in [facility] overnight with 1st trimester bleeding; US there reports 9 weeks and no FHT; will get confirmatory scan this week. ER PIPE MAKING * Telephone Encounter - Margaret Cain - 09/06/2010 12:16 PM CST Pt calling back, states she has not heard from DM yet, states she is on pins and needles waiting to sp with DM; please call pt. JR ER PIPE MAKING * Telephone Encounter - Emely Adams - 09/06/2010 10:54 AM CST Pt is looking for U/S results (media) from [facility] from this weekend. Went with early bleeding. AB ER PIPE MAKING documented in this encounter Plan of Treatment Upcoming Encounters Date Type Department Care Team (Late st Contact Info) Description 04/25/2025 8:20 AM CDT [facility] Primary Care - [facility] [address] [facility] [address] [place] [address] Annalisa Christopher MD [address] [facility] [address] [place] [address] documented as of this encounter Visit Diagnoses Not on filedocumented in this encounter Care Teams Sole Seamer Relationship Specialty Start Date End Date Annalisa Christopher MD [address] [facility] [address] [place] [address] PCP - General 07/07/08 documented as of this encounter
--- OUTSIDE RECORDS SUMMARY | 2024-10-06 18:48 | XMS_ITS | Encounter Summary ---
Author Organization [facility] Address [address] [place] [address] Care Team Providers Care Sas Statistical Programmer Name Role Phone Annalisa Christopher MD Primary Care Provider [phone] Reason for Visit * Reason Onset Date Comments Procedure 09/07/2010 suction d&c Encounter Details Date Type Department Care Team (Late st Contact Info) Description 09/07/2010 Telephone [facility] SPRAY WORKER - Medical [address] [address] Douglas Patricio MD [address] [place] [phone] Procedure (suction d&c) Social History Tobacco [...] not rec'd; questions answered. DM notified. JR F COUNSELOR * Telephone Encounter - Margaret Cain - 09/07/2010 1:23 PM CST PROVIDER: Sheng NAME: Fabiana Pryor : 1975 ADDRESS: [address] [place] [address] HOME #: [phone] CELL #: [phone] WORK #: PROCEDURE/CODE: Suction d&c 42598 DIAGNOSIS/CODE: Missed AB 632 PROCEDURE LOCATION: sj PROCEDURE DATE / TIME: 09/08/10 @ 3:30pm LENGTH OF PROCEDURE: 30 mins CONFIRMATION #: [id number] rachel Swanson OUTPT / SDA / 23 HOUR GENERAL / LOCAL MAC / IV SED INSURANCE COMPANY: [facility] ID # / GROUP #: [id number] / [id number] INSURANCE PHONE #: [phone] PRECERT: Submitted online. SP WITH: DATE/TIME: 09/07/10 BENEFITS: Printed from website. SP WITH: DATE/TIME: 09/07/10 PT INFORMED: [x] SHEET TO INS DEPART: [x] IN COMPUTER: [x] LETTER TO PT: [x] IN BOOK: [x] SHARED DRIVE: [x] POST OP DATE/TIME: [09/23/10 @ 1:30pm] ORDERS FAXED [x] F COUNSELOR * Telephone Encounter - Margaret Cain - 09/07/2010 12:56 PM CST Per DM, to schedule this procedure tomorrow afternoon. F COUNSELOR documented in this encounter Plan of Treatment Upcoming Encounters Date Type Department Care Team (Late st Contact Info) Description 04/25/2025 8:20 AM CDT Office Visit [facility] - [address] [place] [address] Annalisa Christopher MD [address] [place] [address] [address] [place] [address] documented as of this encounter Visit Diagnoses Not on filedocumented in this encounter Care Teams Sas Statistical Programmer Relationship Specialty Start Date End Date Annalisa Christopher MD [address] [place] [address] PCP - General 07/07/08 documented as of this encounter
--- OUTSIDE RECORDS SUMMARY | 2024-10-06 18:48 | XMS_ITS | Encounter Summary ---
Author Organization [facility] Address [address] [place] [address] Care Team Providers Care Plant Care Worker Name Role Phone Annalisa Christopher MD Primary Care Provider [phone] Reason for Visit * Reason Onset Date Comments Contraception 01/13/2011 Mirena Encounter Details Date Type Department Care Team (Late st Contact Info) Description 01/13/2011 Telephone [facility] RN FIELD CASE MANAGER - Medical [address] [address] Douglas Patricio MD [address] [place] [phone] Contraception (Mirena) Social History Tobacco Use [...] Description 04/25/2025 8:20 AM CDT Office Visit [facility] Primary Care - [facility] [address] [facility] [address] [place] [address] Annalisa Christopher MD [address] [facility] [address] [place] [address] documented as of this encounter Visit Diagnoses Not on filedocumented in this encounter Care Teams Plant Care Worker Relationship Specialty Start Date End Date Annalisa Christopher MD [address] [facility] [address] [place] [address] PCP - General 07/07/08 documented as of this encounter
--- OUTSIDE RECORDS SUMMARY | 2024-10-06 18:48 | XMS_ITS | Encounter Summary ---
Author Organization [facility] Address [address] [place] [address] Care Team Providers Care Drop Wire Builder Name Role Phone Annalisa Christopher MD Primary Care Provider [phone] Reason for Visit * Reason Onset Date Comments Question 08/05/2011 Encounter Details Date Type Department Care Team (Late st Contact Info) Description 08/05/2011 Telephone [facility] FORMATION TESTING OPERATOR - [address] [address] Douglas Patricio MD [address] [place] [address] [place] [phone] Question Social History Tobacco Use Types [...] we can check CMV IGG and IGM T SERVICE AGENT * Telephone Encounter - Mayra Lin - 08/05/2011 8:59 AM CST Pt states that she is 33 weeks and her nisce was just diagnosed with CMV virus. Should shebe concerned? T SERVICE AGENT documented in this encounter Plan of Treatment Upcoming Encounters Date Type Department Care Team (Late st Contact Info) Description 04/25/2025 8:20 AM CDT Office Visit [facility] Primary Care - [facility] [address] [facility] [address] [place] [address] Annalisa Christopher MD [address] [facility] [address] [place] [address] documented as of this encounter Visit Diagnoses Not on filedocumented in this encounter Care Teams Drop Wire Builder Relationship Specialty Start Date End Date Annalisa Christopher MD [address] [facility] [address] [place] [address] PCP - General 07/07/08 documented as of this encounter
--- OUTSIDE RECORDS SUMMARY | 2024-10-06 18:48 | XMS_ITS | Encounter Summary ---
Author Organization [facility] Address [address] [place] [address] Care Team Providers Care In Shop Service Technician Name Role Phone Annalisa Christopher MD Primary Care Provider [phone] Encounter Details Date Type Department Care Team (Late st Contact Info) Description 04/25/2005 Outpatient Historical [facility] Primary Care - [address] [place] [address] Kacey Potter MD NO ADDRESS [...] [facility] - [facility] [address] [facility] [address] [place] [address] Annalisa Christopher MD [address] [place] [address] [place] [address] documented as of this encounter Visit Diagnoses Not on filedocumented in this encounter Care Teams In Shop Service Technician Relationship Specialty Start Date End Date Annalisa Christopher MD [address] [place] [address] PCP - General 07/07/08 documented as of this encounter
--- OUTSIDE RECORDS SUMMARY | 2024-10-06 18:48 | XMS_ITS | Encounter Summary ---
Author Organization [facility] Address [address] [place] [address] Care Team Providers Care Timber Sizer Name Role Phone Annalisa Christopher MD Primary Care Provider [phone] Reason for Visit * Reason Onset Date Comments Results 02/02/2011 Encounter Details Date Type Department Care Team (Late st Contact Info) Description 02/02/2011 Telephone [facility] LAW ENFORCEMENT OFFICER - Medical [address] [address] Douglas Patricio MD [address] [place] [phone] Results Social History Tobacco Use Types [...] Office Visit [facility] Primary [facility] - [facility] [address] [facility] [address] [place] [address] Annalisa Christopher MD [address] [facility] [address] [place] [address] documented as of this encounter Visit Diagnoses Not on filedocumented in this encounter Care Teams Timber Sizer Relationship Specialty Start Date End Date Annalisa Christopher MD [address] [facility] [address] [place] [address] PCP - General 07/07/08 documented as of this encounter
--- OUTSIDE RECORDS SUMMARY | 2024-10-06 18:48 | XMS_ITS | Encounter Summary ---
Author Organization [facility] Address [address] [place] [address] Care Team Providers Care Insulation Engineman Name Role Phone Annalisa Christopher MD Primary Care Provider [phone] Reason for Visit * Reason Comments Routine Visit Encounter Details Date Type Department Care Team (Latest Contact Info) Description 03/31/2011 3:15 PM CDT visit [facility] WEIGHT INSPECTOR - [address] [place] [address] Sisi Rand NP [address] [facility] [address] [place] [phone] Supervision of other normal (Primary Dx) [...] [facility] Primary Care - [facility] [address] [facility] [address] [place] [address] Annalisa Christopher MD [address] [facility] [address] [place] [address] documented as of this encounter Visit Diagnoses Diagnosis Supervision of other normal - Primary documented in this encounter Care Teams Insulation Engineman Relationship Specialty Start Date End Date Annalisa Christopher MD [address] [facility] [address] [place] [address] PCP - General 07/07/08 documented as of this encounter
--- OUTSIDE RECORDS SUMMARY | 2024-10-06 18:48 | XMS_ITS | Encounter Summary ---
Author Organization [facility] Address [address] [place] [address] Care Team Providers Care National Van Truck Driver Name Role Phone Annalisa Christopher MD Primary Care Provider [phone] Reason for Visit * Reason Comments Urinary Frequency pt thinks she has a bladder infection Encounter Details Date Type Department Care Team (Late st Contact Info) Description 10/08/2008 10:15 AM NANOSYSTEMS ENGINEER Office Visit [facility] Primary Care - [address] [place] [address] Annalisa Christopher MD [address] [place] [address] [place] [address] UTI (Primary Dx) Social History Tobacco [...] Comments Blood Pressure 110/70 10/08/2008 10:16 AM NANOSYSTEMS ENGINEER Pulse - - Temperature 36.3 ??C (97.4 ??F) 10/08/2008 10:[address] Respiratory Rate - - Oxygen Saturation - - Inhaled Oxygen Concentration - - Weight 67.1 kg (148 lb) 10/08/2008 10:16 AM NANOSYSTEMS ENGINEER Height - - Body Mass Index - [...] DIPSTICK NON AUTOMATED, CIPROFLOXACIN 500 MG TAB SYSTEMS ENGINEER documented in this encounter Plan of Treatment Upcoming Encounters Date Type Department Care Team (Late st Contact Info) Description 04/25/2025 8:20 AM CDT Office Visit [facility] Care - [address] [place] [address] Annalisa Christopher MD [address] [place] [address] [place] [address] documented as of this encounter Procedures Procedure Name Priority Date/Time Associated Diagnosis Comments POC URINALYSIS DIPSTICK NON AUTOMATED Routine 10/08/2008 12:36 PM NANOSYSTEMS ENGINEER UTI documented in this encounter Results * POC URINALYSIS DIPSTICK NON AUTOMATED (10/08/2008 12:36 PM NANOSYSTEMS ENGINEER) [facility] CLARITY [...] CLINIC Urine specimen (specimen) 10/08/2008 12:36 PM NANOSYSTEMS ENGINEER Annalisa Christopher MD POINT OF CARE TESTIN [facility] documented in this encounter Visit Diagnoses Diagnosis UTI- Primary Urinary tract infection, site not specified documented in this encounter Care Teams National Van Truck Driver Relationship Specialty Start Date End Date Annalisa Christopher MD [address] [place] [address] PCP - General 07/07/08 documented as of this encounter
--- OUTSIDE RECORDS SUMMARY | 2024-10-06 18:48 | XMS_ITS | Encounter Summary ---
Author Organization [facility] Address [address] [place] [address] Care Team Providers Care Portable Pinch Riveter Name Role Phone Annalisa Christopher MD Primary Care Provider [phone] Reason for Visit * Reason Comments Routine Visit Encounter Details Date Type Department Care Team (Latest Contact Info) Description 05/24/2011 4:15 PM CDT visit [facility] CONFERENCE SPECIALIST - [address] [address] Douglas Patricio MD [address] [place] [address] [place] [phone] Supervision of other normal (Primary Dx) [...] Reading Time Taken Comments Blood Pressure 130/80 05/24/2011 4:00 PM CDT Pulse - - Temperature - - Respiratory Rate - - Oxygen Saturation - - Inhaled Oxygen Concentration - - Weight 90.3 kg (199 lb) 05/24/2011 4:00 PM CDT Height 170.2 cm (5' 7 ) 05/24/2011 3:59 PM CDT Body Mass Index 31.17 05/24/2011 3:59 PM CDT documented in this encounter Progress Notes * Douglas Patricio MD - 05/24/2011 4:26 PM CDT Will schedule repeat CS; no complaints documented in this encounter Plan of Treatment Upcoming Encounters Date Type Department Care Team (Late st Contact Info) Description 04/25/2025 8:20 AM CDT Office Visit [facility] Primary Care - [facility] [address] [facility] [address] [place] [address] Annalisa Christopher MD [address] [facility] [address] [place] [address] documented as of this encounter Visit Diagnoses Diagnosis Supervision of other normal - Primary documented in this encounter Care Teams Portable Pinch Riveter Relationship Specialty Start Date End Date Annalisa Christopher MD [address] [facility] [address] [place] [address] PCP - General 07/07/08 documented as of this encounter
--- OUTSIDE RECORDS SUMMARY | 2024-10-06 18:48 | XMS_ITS | Encounter Summary ---
Author Organization [facility] Address [address] [place] [address] Care Team Providers Care Chart Snatcher Name Role Phone Annalisa Christopher MD Primary Care Provider [phone] Reason for Visit * Reason Comments Ultrasound Encounter Details Date Type Department Care Team (Late Contact Info) Description 04/27/2011 9:00 AM CDT Office Visit [facility] FINANCIAL PROCESSING CLERK - Medical [place] [facility] [address] [facility] [address] [address] Griselda Alvarez state, incidental (Primary [...] [facility] Primary Care - [address] [place] [address] Annalisa Christopher MD [address] [place] [address] Rd [address] [place] [address] documented as of this [...] Primary documented in this encounter Care Teams Chart Snatcher Relationship Specialty Start Date End Date Annalisa Christopher MD [address] [place] [address] PCP - General 07/07/08 documented as of this encounter
--- OUTSIDE RECORDS SUMMARY | 2024-10-06 18:48 | XMS_ITS | Encounter Summary ---
Author Organization [facility] Address [address] [place] [address] Care Team Providers Care Healthcare Economics Consultant Name Role Phone Annalisa Christopher MD Primary Care Provider [phone] Encounter Details Date Type Department Care Team (Late st Contact Info) Description 06/05/2003 Outpatient Historical [facility] VETERINARY LIVESTOCK INSPECTOR - [facility] [address] [facility] [address] [place] [address] Gavin Hadley MD [address] [place] [address] Social History Tobacco Use Types [...] [facility] Primary Care - [facility] [address] [place] [address] Annalisa Christopher MD [address] [facility] [facility] [address] [place] [address] documented as of this encounter Visit Diagnoses Not on filedocumented in this encounter Care Teams Healthcare Economics Consultant Relationship Specialty Start Date End Date Annalisa Christopher MD [address] [place] [address] PCP - General 07/07/08 documented as of this encounter
--- OUTSIDE RECORDS SUMMARY | 2024-10-06 18:48 | XMS_ITS | Encounter Summary ---
Author Organization [facility] Address [address] [place] [address] Care Team Providers Care Heater Room Helper Name Role Phone Annalisa Christopher MD Primary Care Provider [phone] Reason for Visit * Reason Comments Upper Respiratory Symptoms Cough PRODUCTIVE--YELLOW A ND THICK Chest Congestion AND IN BACK OF SINUS Encounter Details Date Type Department Care Team (Late st Contact Info) Description 10/06/2009 3:00 PM POLYSOMNOGRAPHIC TECHNOLOGIST Office Visit [facility] Care - [address] [place] [address] Annalisa Christopher MD [address] [place] [address] [address] [place] [address] Acute URI (Primary Dx) Social [...] Comments Blood Pressure 112/80 10/06/2009 2:58 PM POLYSOMNOGRAPHIC TECHNOLOGIST Pulse - - Temperature 37.2 ??C (98.9 ??F) 10/06/2009 2:58 PM CS T Respiratory Rate - - Oxygen Saturation - - Inhaled Oxygen Concentration - - Weight 75.3 kg (166 lb) 10/06/2009 2:58 PM POLYSOMNOGRAPHIC TECHNOLOGIST Height - - Body Mass Index - [...] TAB, CODEINE-GUAIFENESIN 10 MG-100 MG/5 ML SYRUP SOMNOGRAPHIC TECHNOLOGIST documented in this encounter Plan of Treatment Upcoming Encounters Date Type Department Care Team (Late st Contact Info) Description 04/25/2025 8:20 AM CDT Office Visit [facility] Primary Care - [facility] [address] [facility] [address] [place] [address] Annalisa Christopher MD [address] [place] [address] documented as of this encounter Visit Diagnoses Diagnosis Acute URI- Primary Acute upper respiratory infections of unspecified site documented in this encounter Care Teams Heater Room Helper Relationship Specialty Start Date End Date Annalisa Christopher MD [address] [facility] [address] [place] [address] PCP - General 07/07/08 documented as of this encounter
--- OUTSIDE RECORDS SUMMARY | 2024-10-06 18:48 | XMS_ITS | Encounter Summary ---
Author Organization [facility] Address [address] [place] [address] Care Team Providers Care Stringed Instrument Assembler Name Role Phone Annalisa Christopher MD Primary Care Provider [phone] Reason for Visit * Reason Comments Routine Visit Encounter Details Date Type Department Care Team (Latest Contact Info) Description 08/16/2011 3:15 PM WAREHOUSE REPRESENTATIVE visit [facility] OIL WELL LOGGER - [address] [address] Douglas Patricio MD [address] [place] [address] [place] [address] Supervision of other normal (Primary Dx) [...] Comments Blood Pressure 128/80 08/16/2011 3:25 PM WAREHOUSE REPRESENTATIVE Pulse - - Temperature - - Respiratory Rate - - Oxygen Saturation - - Inhaled Oxygen Concentration - - Weight 102.5 kg (226 lb) 08/16/2011 3:25 PM WAREHOUSE REPRESENTATIVE Height - - Body Mass Index 35.4 08/02/2011 3:25 PM WAREHOUSE REPRESENTATIVE documented in this encounter Progress Notes * Douglas Patricio MD - 08/16/2011 3:48 PM CST More ctx, more edema HOUSE REPRESENTATIVE documented in this encounter Plan of Treatment Upcoming Encounters Date Type Department Care Team (Late st Contact Info) Description 04/25/2025 8:20 AM CDT Office Visit [facility] Primary Care - [facility] [address] [facility] [address] [place] [address] Annalisa Christopher MD [address] [facility] [address] [place] [address] documented as of this encounter Visit Diagnoses Diagnosis Supervision of other normal - Primary documented in this encounter Care Teams Stringed Instrument Assembler Relationship Specialty Start Date End Date Annalisa Christopher MD [address] [facility] [address] [place] [address] PCP - General 07/07/08 documented as of this encounter
--- OUTSIDE RECORDS SUMMARY | 2024-10-06 18:48 | XMS_ITS | Encounter Summary ---
Author Organization [facility] Address [address] [place] [address] Care Team Providers Care Sports Book Writer Name Role Phone Annalisa Christopher MD Primary Care Provider [phone] Reason for Visit * Reason Comments Well Woman Exam Remove IUD Encounter Details Date Type Department Care Team (Latest Contact Info) Description 10/22/2009 4:00 PM TOLL LINE REPAIRER Office Visit [facility] FISHING VESSEL OPERATOR - [address] [address] Douglas Patricio MD [address] [place] [address] [place] [phone] Routine Gynecological Examination (Primary Dx) Social [...] Comments Blood Pressure 130/80 10/22/2009 3:53 PM TOLL LINE REPAIRER Pulse - - Temperature - - Respiratory Rate - - Oxygen Saturation - - Inhaled Oxygen Concentration - - Weight 74.4 kg (164 lb) 10/22/2009 3:53 PM TOLL LINE REPAIRER Height 170.2 cm (5' 7 ) 10/22/2009 3:53 PM TOLL LINE REPAIRER Body Mass Index 25.69 10/22/2009 3:53 PM TOLL LINE REPAIRER documented in this encounter Progress Notes * [...] changes in weight. No urinary tract symptoms. BANK RUNNER ROS: normal menses, no abnormal bleeding, pelvic [...] (, C/Sx1, stillbirth at term[cord accident] sabx2) LINE REPAIRER documented in this encounter Plan of Treatment Upcoming Encounters Date Type Department Care Team (Late st Contact Info) Description 04/25/2025 8:20 AM CDT Office Visit [facility] Primary Care - [facility] [address] [place] [address] Annalisa Christopher MD [address] [facility] [address] [place] [address] documented as of this encounter Procedures Procedure Name Priority Date/Time Associated Diagnosis Comments CERV/VAG CYTOPATH, SUREPATH W/RFLX HPV Routine 10/22/2009 3:58 PM TOLL LINE REPAIRER Routine Gynecological Examination documented in this encounter Results * CERV/VAG CYTOPATH, SUREPATH W/RFLX HPV (10/22/2009 3:58 PM TOLL LINE REPAIRER) REPORT STATUS FINAL [facility] CLINICAL INFORMATION [facility] Comment:HEALTHY LAST MENSTRUAL PERIOD [facility] [employer] [facility] Comment:08 22 09 PREV PAP: [facility] Comment:01 22 09 WNL PREV BX: [facility] Comment:Information not prov ided SOURCE [facility] Comment:Endocervix ADEQUACY: [facility] [employer] [facility] Comment: Satisfactory for evaluation. Endocervical/transformation zone component present. INTERPRETATION [facility] Comment:Negative for intraep ithelial lesion or malignancy. COMMENT [facility] Comment: Based on the cytology result, reflex High Risk HPV DNA testing was not performed. ? CASH SURRENDER CALCULATOR: [employer] Comment: TMK, CT(ASCP) Test Performed at: [facility] [address] [email or web address], [place] ??[address] MURRAY VOGEL MD Endocervical 10/22/2009 3:58 PM TOLL LINE REPAIRER Douglas Patricio MD PATHOLOGY/CYTOLOGY O RDERABLES INTERFACE SYSTEM Refer to clinic/hospital department [facility] [address] [place] [address] documented in this encounter Visit Diagnoses Diagnosis Routine gynecological examination- Primary documented in this encounter Care Teams Sports Book Writer Relationship Specialty Start Date End Date Annalisa Christopher MD [address] [place] [address] PCP - General 07/07/08 documented as of this encounter
--- OUTSIDE RECORDS SUMMARY | 2024-10-06 18:48 | XMS_ITS | Encounter Summary ---
Author Organization [facility] Address [address] [place] [address] Care Team Providers Care Security Shift Supervisor Name Role Phone Annalisa Christopher MD Primary Care Provider [phone] Reason for Visit * Reason Onset Date Comments Scheduled 05/25/2011 EDC: 1 Encounter Details Date Type Department Care Team (Late st Contact Info) Description 05/25/2011 Telephone [facility] WOMEN'S MINISTRY DIRECTOR - Medical [address] [address] Douglas Patricio MD [address] [place] [address] Scheduled (EDC: 09/16/11) Social History Tobacco [...] * Telephone Encounter - Margaret Cain - 05/25/2011 12:18 PM CDT Per Palomo [...] [facility] Primary Care - [facility] [address] [facility] [address] [place] [address] Annalisa Christopher MD [address] [facility] [address] [place] [address] documented as of this encounter Visit Diagnoses Not on filedocumented in this encounter Care Teams Security Shift Supervisor Relationship Specialty Start Date End Date Annalisa Christopher MD [address] [facility] [address] [place] [address] PCP - General 07/07/08 documented as of this encounter
--- OUTSIDE RECORDS SUMMARY | 2024-10-06 18:48 | XMS_ITS | Encounter Summary ---
Author Organization [facility] Address [address] [place] [address] Care Team Providers Care Plumber Helper Name Role Phone Annalisa Christopher MD Primary Care Provider [phone] Encounter Details Date Type Department Care Team (Late st Contact Info) Description 08/24/2007 Outpatient Historical [facility] [address] [facility] [place] [address] Hasmukh Lucas MD [address] [facility] [address] [place] [address] Social History Tobacco Use Types [...] CDT Office Visit [facility] [address] [facility] [address] [place] [address] Annalisa Christopher MD [address] [place] [address] documented as of this encounter Visit Diagnoses Not on filedocumented in this encounter Care Teams Plumber Helper Relationship Specialty Start Date End Date Annalisa Christopher MD [address] [facility] [address] [place] [address] PCP - General 07/07/08 documented as of this encounter
--- OUTSIDE RECORDS SUMMARY | 2024-10-06 18:48 | XMS_ITS | Encounter Summary ---
Author Organization [facility] Address [address] [place] [address] Care Team Providers Care Cae Engineer Name Role Phone Annalisa Christopher MD Primary Care Provider [phone] Reason for Visit * Reason Comments Routine Visit Encounter Details Date Type Department Care Team (Latest Contact Info) Description 08/02/2011 3:30 PM PET[employer]ODUCTS DISTRICT SUPERVISOR visit [facility] GENETICS NURSE - [address] [place] [address] Douglas Patricio MD [address] [place] [address] [place] [phone] Supervision of other normal (Primary Dx) [...] Comments Blood Pressure 130/80 08/02/2011 3:25 PM [employer] DISTRICT SUPERVISOR Pulse - - Temperature - - Respiratory Rate - - Oxygen Saturation - - Inhaled Oxygen Concentration - - Weight 100.7 kg (222 lb) 08/02/2011 3:25 PM [employer] DISTRICT SUPERVISOR Height 170.2 cm (5' 7 ) 08/02/2011 3:25 PM [employer] DISTRICT SUPERVISOR Body Mass Index 34.77 08/02/2011 3:25 PM [employer] DISTRICT SUPERVISOR documented in this encounter Progress Notes * Douglas Patricio MD - 08/02/2011 3:45 PM CST Stopped prilosec; BADW; some edema; C/S 09/09 OLEUM PRODUCTS DISTRICT SUPERVISOR documented in this encounter Plan of Treatment Upcoming Encounters Date Type Department Care Team (Late st Contact Info) Description 04/25/2025 8:20 AM CDT Office Visit [facility] Primary Care - [facility] [address] [facility] [address] [place] [address] Annalisa Christopher MD [address] [facility] [address] [place] [address] documented as of this encounter Visit Diagnoses Diagnosis Supervision of other normal - Primary documented in this encounter Care Teams Cae Engineer Relationship Specialty Start Date End Date Annalisa Christopher MD [address] [facility] [address] [place] [address] PCP - General 07/07/08 documented as of this encounter
--- OUTSIDE RECORDS SUMMARY | 2024-10-06 18:48 | XMS_ITS | Encounter Summary ---
Author Organization [facility] Address [address] [place] [address] Care Team Providers Care Dining Service Worker Name Role Phone Annalisa Christopher MD Primary Care Provider [phone] Encounter Details Date Type Department Care Team [...] [facility] Primary Care - [facility] [address] [place] [address] [place] [address] Annalisa Christopher MD [address] [place] [address] [address] [place] [address] documented as of this encounter Visit Diagnoses Diagnosis Abdominal pain, unspecified site- Primary documented in this encounter Care Teams Dining Service Worker Relationship Specialty Start Date End Date Annalisa Christopher MD [address] [place] [address] [place] [address] PCP - General 07/07/08 documented as of this encounter
--- OUTSIDE RECORDS SUMMARY | 2024-10-06 18:48 | XMS_ITS | Encounter Summary ---
Author Organization [facility] Address [address] [place] [address] Care Team Providers Care Railway Yard Assistant Name Role Phone Annalisa Christopher MD Primary Care Provider [phone] Reason for Visit * Reason Comments Ultrasound Encounter Details Date Type Department Care Team (Late st Contact Info) Description 09/07/2010 10:20 AM SOCIAL INSURANCE ADMINISTRATOR Office Visit [facility] HEEL CEMENTER - Medical [facility] [address] [facility] [address] [phone] Griselda Alvarez Missed ; Second trimester bleeding [...] in office today and Ultrasound exam performed. [place] INSURANCE ADMINISTRATOR documented in this encounter Plan of Treatment Upcoming Encounters Date Type Department Care Team (Late st Contact Info) Description 04/25/2025 8:20 AM CDT Office Visit [facility] - [facility] [address] [place] [address] [address] [place] [address] Annalisa Christopher MD [address] [place] [address] documented as of this encounter [...] care documented in this encounter Care Teams Railway Yard Assistant Relationship Specialty Start Date End Date Annalisa Christopher MD [address] [place] [address] PCP - General 07/07/08 documented as of this encounter
--- OUTSIDE RECORDS SUMMARY | 2024-10-06 18:48 | XMS_ITS | Encounter Summary ---
Author Organization [facility] Address [address] [place] [address] Care Team Providers Care Orthopedic Brace Maker Name Role Phone Annalisa Christopher MD Primary Care Provider [phone] Reason for Visit * Reason Comments Routine Visit Encounter Details Date Type Department Care Team (Latest Contact Info) Description 06/21/2011 1:15 PM CDT visit [facility] ASSISTANT OPERATOR - [address] [address] Douglas Patricio MD [address] [place] [address] [place] [phone] Supervision of other normal (Primary Dx) [...] Description 04/25/2025 8:20 AM CDT Office Visit [facility] Care - [facility] [address] [place] [address] Annalisa Christopher MD [address] [place] [address] documented as of this [...] ABS NON-REACT YOVANY NON-REACT YOVANY [facility] Comment: A Nonreactive HIV-1/2 antibody result does not exclude HIV infection since the time frame for seroconversion is variable. If acute HIV infection is suspected, antibody retesting and nucleic acid amplification (HIV DNA/RNA) testing is recommended. REPORT COMMENT: FASTING Test Performed at: [facility] [address] [place], [place] ??[id number] NELSON FRENCH DO,MPH 06/23/2011 9:32 AM CDT Douglas Patricio MD CHEMISTRY ORDERABLES Performing Organization Address [facility] Phone Number INTERFACE SYSTEM Refer to clinic/hospital department [facility] [address] [phone] * (ABNORMAL) GLUCOSE TOLERANCE 1 HR GESTATIONAL (06/23/2011 9:32 AM CDT) GLUCOSE 1 HR OBSTETRIC 134(H) <130 mg/dL [facility] Comment: In high risk patients, a value of > or = 130 mg/dL indicates the need for a full diagnostic, 100g dose, 3 hour oral Glucose Tolerance Test performed in the fasting state. Test Performed at: [facility] ??[id number] NELSON FRENCH DO,MPH 06/23/2011 9:32 AM CDT Douglas Patricio MD CHEMISTRY ORDERABLES Performing Organization Address [facility] Phone Number INTERFACE SYSTEM Refer to clinic/hospital department [facility] [address] [phone] * HEMOGLOBIN (06/23/2011 9:32 AM CDT) HEMOGLOBIN 12.1 11.7 - 15.5 g/dL [facility] Comment: Test Performed at: [facility] ??[id number] NELSON FRENCH DO,MPH 06/23/2011 9:32 AM CDT Douglas Patricio MD HEMATOLOGY ORDERABLE S Performing Organization Address [facility] Phone Number INTERFACE SYSTEM Refer to clinic/hospital department [facility] [address] [place] [address] * HEMATOCRIT (06/23/2011 9:32 AM CDT) HEMATOCRIT 35.9 35.0 - 45.0 % [facility] Comment: Test Performed at: [facility] ??[id number] NELSON FRENCH DO,MPH 06/23/2011 9:32 AM CDT Douglas Patricio MD HEMATOLOGY ORDERABLE S INTERFACE SYSTEM Refer to clinic/hospital department [facility] [address] [address] documented in this encounter Visit Diagnoses Diagnosis Supervision of other normal - Primary documented in this encounter Care Teams Orthopedic Brace Maker Relationship Specialty Start Date End Date Annalisa Christopher MD [address] [place] [address] PCP - General 07/07/08 documented as of this encounter
--- OUTSIDE RECORDS SUMMARY | 2024-10-06 18:48 | XMS_ITS | Encounter Summary ---
Author Organization [facility] Address [address] [place] [address] Care Team Providers Care Driller Machine Name Role Phone Annalisa Christopher MD Primary Care Provider [phone] Reason for Visit * Reason Comments Routine Visit Encounter Details Date Type Department Care Team (Latest Contact Info) Description 08/23/2011 3:15 PM TRAIN ANNOUNCER visit [facility] MATERIALS MANAGEMENT MANAGER - [address] [address] Douglas Patricio MD [address] [place] [address] [place] [phone] Supervision of other normal (Primary Dx) [...] Comments Blood Pressure 122/70 08/23/2011 3:11 PM TRAIN ANNOUNCER Pulse - - Temperature - - Respiratory Rate - - Oxygen Saturation - - Inhaled Oxygen Concentration - - Weight 103.4 kg (228 lb) 08/23/2011 3:11 PM TRAIN ANNOUNCER Height - - Body Mass Index 35.71 08/02/2011 3:25 PM TRAIN ANNOUNCER documented in this encounter Progress Notes * Douglas Patricio MD - 08/23/2011 3:20 PM CST BADW; no complaints N ANNOUNCER documented in this encounter Plan of Treatment Upcoming Encounters Date Type Department Care Team (Late st Contact Info) Description 04/25/2025 8:20 AM CDT Office Visit [facility] Primary Care - [facility] [address] [place] [address] Annalisa Christopher MD [address] [place] [address] documented as of this encounter Visit Diagnoses Diagnosis Supervision of other normal - Primary documented in this encounter Care Teams Driller Machine Relationship Specialty Start Date End Date Annalisa Christopher MD [address] [place] [address] PCP - General 07/07/08 documented as of this encounter
--- OUTSIDE RECORDS SUMMARY | 2024-10-06 18:48 | XMS_ITS | Encounter Summary ---
Author Organization [facility] Address [address] [place] [address] Care Team Providers Care Dry Kiln Loader Name Role Phone Annalisa Christopher MD Primary Care Provider [phone] Encounter Details Date Type Department Care Team (Late st Contact Info) Description 10/07/2003 Outpatient Historical [facility] COO - [facility] [address] [facility] [address] [facility] [address] [place] [address] Gavin Hadley MD [address] [place] [address] Social History Tobacco Use Types [...] [facility] Primary Care - [facility] [address] [place] [address] Annalisa Christopher MD [address] [place] [address] documented as of this encounter Visit Diagnoses Not on filedocumented in this encounter Care Teams Dry Kiln Loader Relationship Specialty Start Date End Date Annalisa Christopher MD [address] [place] [address] PCP - General 07/07/08 documented as of this encounter
--- OUTSIDE RECORDS SUMMARY | 2024-10-06 18:48 | XMS_ITS | Encounter Summary ---
Author Organization [facility] Address [address] [place] [address] Care Team Providers Care Bleach Analyst Name Role Phone Annalisa Christopher MD Primary Care Provider [phone] Encounter Details Date Type Department Care Team (Late st Contact Info) Description 02/10/2006 Outpatient Historical [facility] Primary Care - [address] [place] [address] Kacey Potter MD NO ADDRESS [...] [facility] Primary Care - [facility] [address] [facility] [address] [place] [address] Annalisa Christopher MD [address] [place] [address] [place] [address] documented as of this encounter Visit Diagnoses Not on filedocumented in this encounter Care Teams Bleach Analyst Relationship Specialty Start Date End Date Annalisa Christopher MD [address] [place] [address] PCP - General 07/07/08 documented as of this encounter
--- OUTSIDE RECORDS SUMMARY | 2024-10-06 18:48 | XMS_ITS | Encounter Summary ---
Author Organization [facility] Address [address] [place] [address] Care Team Providers Care Digging Machine Operator Name Role Phone Annalisa Christopher MD Primary Care Provider [phone] Encounter Details Date Type Department Care Team (Late st Contact Info) Description 09/06/2010 Abstract [facility] NURSING PROFESSOR - Medical [address] [address] Douglas Patricio MD [address] [address] Social History Tobacco Use Types [...] Visit [facility] Primary Care - [facility] [address] [place] [address] [address] [place] [address] Annalisa Christopher MD [address] [place] [address] [address] [place] [address] documented as of this encounter [...] on filedocumented in this encounter Care Teams Digging Machine Operator Relationship Specialty Start Date End Date Annalisa Christopher MD [address] [place] [address] PCP - General 07/07/08 documented as of this encounter
--- OUTSIDE RECORDS SUMMARY | 2024-10-06 18:48 | XMS_ITS | Encounter Summary ---
Author Organization [facility] Address [address] [place] [address] Care Team Providers Care Netbackup Administrator Name Role Phone Annalisa Christopher MD Primary Care Provider [phone] Encounter Details Date Type Department Care Team (Late st Contact Info) Description 12/27/2007 Outpatient Historical [facility] [address] [place] [address] Annalisa Christopher MD [address] [place] [address] [address] [place] [address] Social History Tobacco Use Types [...] Office Visit [facility] [address] [place] [address] Annalisa Christopher MD [address] [place] [address] [address] [place] [address] documented as of this encounter Visit Diagnoses Not on filedocumented in this encounter Care Teams Netbackup Administrator Relationship Specialty Start Date End Date Annalisa Christopher MD [address] [place] [address] PCP - General 07/07/08 documented as of this encounter
--- OUTSIDE RECORDS SUMMARY | 2024-10-06 18:48 | XMS_ITS | Encounter Summary ---
Author Organization [facility] Address [address] [place] [address] Care Team Providers Care Wheel Grinder Name Role Phone Annalisa Christopher MD Primary Care Provider [phone] Reason for Visit * Reason Comments Migraine Blurred Vision Nausea AFTER MIGRAINE Encounter Details Date Type Department Care Team (Latest Contact Info) Description 10/07/2010 8:45 AM LIVESTOCK BREEDER Office Visit [facility] Primary Care - [address] [place] [address] Annalisa Christopher MD [address] [place] [address] [place] [address] Migraine; Primary hypercoagulable state; Acute URI [...] Comments Blood Pressure 114/72 10/07/2010 8:55 AM LIVESTOCK BREEDER Pulse - - Temperature 36.9 ??C (98.4 ??F) 10/07/2010 8:55 AM CS T Respiratory Rate - - Oxygen Saturation - - Inhaled Oxygen Concentration - - Weight 82.1 kg (181 lb) 10/07/2010 8:55 AM LIVESTOCK BREEDER Height - - Body Mass Index 28.35 09/07/2010 1:11 PM LIVESTOCK BREEDER documented in this encounter Progress Notes * [...] (465.9C) azithromycin (ZITHROMAX) 250 mg Oral tablet STOCK BREEDER documented in this encounter Plan of Treatment Upcoming Encounters Date Type Department Care Team (Late st Contact Info) Description 04/25/2025 8:20 AM CDT Office Visit [facility] Primary Care - [place] [address] [facility] [address] [place] [address] Annalisa Christopher MD [address] [place] [address] [place] [address] documented as of this encounter Results * PROTEIN C ACTIVITY (10/07/2010 9:45 AM LIVESTOCK BREEDER) PROTEIN C ACTIVITY 100 75 - 165 U/dL [facility] Comment: Reference ranges are not available for children or adolescents less that age 18. Performed by [facility] Coagulation Reference Laboratory, [address] [facility] [place] [address] Blood specimen (specimen) 10/07/2010 9:45 AM LIVESTOCK BREEDER 10/07/2010 2:05 PM LIVESTOCK BREEDER Annalisa Christopher MD HEMATOLOGY ORDERABLE S [facility] CLIA# [id number] [address] [place] [address] * PROTEIN S ACTIVITY (10/07/2010 9:45 AM LIVESTOCK BREEDER) Pathologist [facility] PROTEIN S ACTIVITY 85 70 - 130 U/dL [facility] Comment: Performed by [facility] Coagulation Reference Laboratory, [place] [address] Blood specimen (specimen) 10/07/2010 9:45 AM LIVESTOCK BREEDER 10/07/2010 2:05 PM LIVESTOCK BREEDER Annalisa Christopher MD CHEMISTRY ORDERABLES [facility] CLIA# [id number] [address] [place] [address] * CBC WITH DIFFERENTIAL (10/07/2010 9:45 AM LIVESTOCK BREEDER) [facility] WBC 5.6 4.0 - 9.8 K/uL [facility] RBC 4.62 3.90 - 4.90 M/uL [facility] HEMOGLOBIN 13.8 11.8 - 14.8 g/dL [facility] HEMATOCRIT 41.9 35.5 - 44.0 % [facility] MCV 90.7 82.0 - 99.0 fL [facility] MCH 29.9 27.2 - 32.6 pg [facility] MCHC 32.9 31.5 - 35.5 % [facility] PLATELETS 233 140 - 350 K/uL [facility] MPV 10.2 9.3 - 12.4 fL [facility] RDW 12.7 11.5 - 14.5 % [facility] RDW-STDEV 42.2 37.1 - 48.7 fL [facility] NEUTROPHILS 59 45 - 70 % [facility] LYMPHOCYTES 29 16 - 45 % [facility] MONOCYTES 10 3 - 13 % [facility] EOSINOPHILS 1 0 - 7 % [facility] BASOPHILS 0 0 - 2 % [facility] NEUTROPHIL ABSOLUTE 3.29 1.90 - 7.00 K/uL [facility] LYMPHOCYTE ABSOLUTE 1.63 0.70 - 4.50 K/uL [facility] MONOCYTE ABSOLUTE 0.56 0.10 - 1.30 K/uL [facility] EOSINOPHIL ABSOLUTE 0.07 0.00 - 0.70 K/uL [facility] BASOPHILS ABSOLUTE 0.01 0.00 - 0.20 K/uL [facility] Blood specimen (specimen) 10/07/2010 9:45 AM LIVESTOCK BREEDER 10/07/2010 2:05 PM LIVESTOCK BREEDER Annalisa Christopher MD HEMATOLOGY ORDERABLE S Performing Organization Address City/[facility] Co de Phone Number [facility] CLIA# [id number] [address] [place] [address] * (ABNORMAL) ANTITHROMBIN III ACTIVITY (10/07/2010 9:45 AM LIVESTOCK BREEDER) ANTITHROMBIN III ACTIVITY 133(H) 85 - 130 U/dL [facility] Comment: Performed by [facility] Coagulation Reference Laboratory, [facility] [address] [facility] [place] [address] Blood specimen (specimen) 10/07/2010 9:45 AM LIVESTOCK BREEDER 10/07/2010 2:05 PM LIVESTOCK BREEDER Annalisa Christopher MD HEMATOLOGY ORDERABLE S Performing Organization Address City/[facility]/ZIP Co de Phone Number [facility] CLIA# [id number] [address] [place] [address] * ANTIPHOSPHOLIPID ANTIBODIES (10/07/2010 9:45 AM LIVESTOCK BREEDER) COMMENT See Cardiolipin Ab Screen. [facility] Comment: Per Laboratory protocol, Antiphospholipid Antibodies has been replaced with Cardiolipin Antibody Screen. Blood specimen (specimen) 10/07/2010 9:45 AM LIVESTOCK BREEDER 10/07/2010 2:05 PM LIVESTOCK BREEDER Annalisa Christopher MD CHEMISTRY ORDERABLES COM [facility] CLIA# [id number] [address] [facility] [place] [address] documented in this encounter Visit Diagnoses Diagnosis Migraine Migraine, unspecified, without mention of intractable migraine without mention of status migrainosus Primary hypercoagulable state Acute URI Acute upper respiratory infections of unspecified site Primary hypercoagulable state documented in this encounter Care Teams Wheel Grinder Relationship Specialty Start Date End Date Annalisa Christopher MD [address] [place] [address] PCP - General 07/07/08 documented as of this encounter
--- OUTSIDE RECORDS SUMMARY | 2024-10-06 18:48 | XMS_ITS | Encounter Summary ---
Author Organization [facility] Address [address] [place] [address] Care Team Providers Care Starchmaker Name Role Phone Annalisa Christopher MD Primary Care Provider [phone] Encounter Details Date Type Department Care Team (Latest Contact Info) Description 07/15/2010 4:27 PM CDT - 07/15/2010 11:59 PM CDT Hospital Encounter [facility] Services [address] [address] Douglas Patricio MD [address] [place] [phone] Discharge Disposition: Home or Self Care [...] [facility] Primary Care - [address] [place] [address] Annalisa Christopher MD [address] [place] [address] [address] [place] [address] documented as of this encounter [...] CDT) WBC 6.3 4.0 - 9.8 K/uL [facility] RBC 4.27 3.90 - 4.90 M/uL [facility] HEMOGLOBIN 12.8 11.8 - 14.8 g/dL [facility] HEMATOCRIT 38.8 35.5 - 44.0 % [facility] MCV 90.9 82.0 - 99.0 fL [facility] MCH 30.0 27.2 - 32.6 pg [facility] MCHC 33.0 31.5 - 35.5 % [facility] PLATELETS 247 140 - 350 K/uL [facility] MPV 10.8 9.3 - 12.4 fL [facility] RDW 13.3 11.5 - 14.5 % [facility] RDW-STDEV 43.8 37.1 - 48.7 fL [facility] NEUTROPHILS 64 45 - 70 % [facility] LYMPHOCYTES 18 16 - 45 % [facility] MONOCYTES 16(H) 3 - 13 % [facility] EOSINOPHILS 1 0 - 7 % [facility] BASOPHILS 0 0 - 2 % [facility] NEUTROPHIL ABSOLUTE 4.06 1.90 - 7.00 K/uL [facility] LYMPHOCYTE ABSOLUTE 1.15 0.70 - 4.50 K/uL [facility] MONOCYTE ABSOLUTE 1.03 0.10 - 1.30 K/uL [facility] EOSINOPHIL ABSOLUTE 0.07 0.00 - 0.70 K/uL [facility] BASOPHILS ABSOLUTE 0.01 0.00 - 0.20 K/uL [facility] Blood specimen (specimen) 07/15/2010 4:41 PM CDT 07/15/2010 10:50 PM CDT Douglas Patricio MD HEMATOLOGY ORDERABLE S [facility] CLIA# [id number] [address] [place], [place] [address] * HIV ANTIBODY W/REFLX CONFIRMATION (07/15/2010 4:41 PM CDT) HIV-1 AND 2 ABS NON-REACTI VE NON-REACT YOVANY [facility] Comment: A Nonreactive HIV-1/2 antibody result does not exclude HIV infection since the time frame for seroconversion is variable. If acute HIV infection is suspected, antibody retesting and nucleic acid amplification (HIV DNA/RNA) testing is recommended. ? Lab test performed by: [employer] [place] [id number] [address] [facility] [facility]ITAL[facility]oc[facility] [place] [phone] NELSON FRENCH DO,MPH Blood specimen (specimen) 07/15/2010 4:41 PM CDT 07/15/2010 10:51 PM CDT Douglas Patricio MD CHEMISTRY ORDERABLES Performing Organization Address [facility] de Phone Number [facility] CLIA# [id number] [address] [facility] [place] [address] * HEPATITIS B SURFACE ANTIGEN (07/15/2010 4:41 PM CDT) Pathologist [facility] HEPATITIS B SURFACE AG NON-REACTI VE NON-REACT YOVANY [facility] Comment: ? Lab test performed by: [employer] [place] [id number] [address] [facility] [place] [id number] NELSON FRENCH DO,MPH Blood specimen (specimen) 07/15/2010 4:41 PM CDT 07/15/2010 10:51 PM CDT Douglas Patricio MD CHEMISTRY ORDERABLES Performing Organization Address [facility] de Phone Number [facility] CLIA# [id number] [address] [place] [place] [address] * RUBELLA IGG (07/15/2010 4:41 PM CDT) RUBELLA IGG 2.41 Index [facility] Comment: Index ?Interpretation ? < or = 0.90 ?Negative 0.91-1.09 ?Equivocal > or = 1.10 ?Positive The presence of rubella IgG antibody suggests immunization or past or current infection with rubella virus. ? Lab test performed by: [employer] [place] [id number] [place] [address] NELSON FRENCH DO,MPH Blood specimen (specimen) 07/15/2010 4:41 PM CDT 07/15/2010 10:51 PM CDT Douglas Patricio MD CHEMISTRY ORDERABLES Performing Organization Address [facility] de Phone Number [facility] CLIA# [id number] [address] [facility] [place] [address] * RPR (07/15/2010 4:41 PM CDT) [facility] RPR NON-REACTI VE NON-REACT YOVANY [facility] Comment: ? Lab test performed by: [email or web address] [id number] [facility] [place] [address] NELSON FRENCH DO,MPH Blood specimen (specimen) 07/15/2010 4:41 PM CDT 07/15/2010 10:51 PM CDT Douglas Patricio MD CHEMISTRY ORDERABLES Performing Organization Address [facility] de Phone Number [facility] CLIA# [id number] [address] [place] [place] [address] * TSH REFLEXIVE (07/15/2010 4:41 PM CDT) [facility] TSH 0.63 0.27 - 4.20 uU/mL [facility] Blood specimen (specimen) 07/15/2010 4:41 PM CDT 07/15/2010 10:51 PM CDT Douglas Patricio MD CHEMISTRY ORDERABLES Performing Organization Address [facility] de Phone Number [facility] CLIA# [id number] [address] [place] [address] * PROGESTERONE (07/15/2010 4:41 PM CDT) PROGESTERONE 13.9 ng/mL [facility] Comment: Progesterone Reference Range: ?Female: Normally Menstruating Female ? Follicular Phase ?0.2 - 1.5 ??ng/mL ? Ovulation Phase ? 0.8 - 3.0 ??ng/mL ? Luteal Phase ?1.7 - 27.0 ng/mL ? Postmenopausal ?0.1 - 0.8 ??ng/mL No Pediatric Reference Range Available. Blood specimen (specimen) 07/15/2010 4:41 PM CDT 07/15/2010 10:51 PM CDT Douglas Patricio MD CHEMISTRY ORDERABLES Performing Organization Address [facility] de Phone Number [facility] CLIA# [id number] [address] [place] [address] * OBSTETRIC PANEL (07/15/2010 4:41 PM CDT) COMMENT See Additional Orderables [facility] Blood specimen (specimen) 07/15/2010 4:41 PM CDT 07/15/2010 10:51 PM CDT Douglas Patricio MD CHEMISTRY ORDERABLES Performing Organization Address [facility] de Phone Number [facility] CLIA# [id number] [address] [place] [address] * (ABNORMAL) HCG QUANTITATIVE, BLOOD (07/15/2010 4:41 PM CDT) HCG QUANT, BLOOD 7,897(H) 0 - 5 mIU/mL [facility] Comment: Result of 5 - 25 mIU/mL is indeterminant for , repeat of test recommemded in 48 hours. Reference Range: Gestational Age: 3 ??Weeks ?5.8 - 71.2 ?mIU/mL 4 ??Weeks ?9.5 - 750 ? mIU/mL 5 ??Weeks ?217 - 1727 ?mIU/mL 6 ??Weeks ?158 - 31,795 ?mIU/mL [...] 12,039 - 70,971 ?mIU/mL 16 Weeks ? 9045 - 56,451 ?mIU/mL 17 Weeks ? 4055 - 03,868 ?mIU/mL 18 Weeks ? 8099 - 58,176 [...] Patricio MD CHEMISTRY ORDERABLES Performing Organization Address [facility] de Phone Number [facility] CLIA# [id number] [address] [place] [address] * ANTIBODY SCREEN (07/15/2010 4:30 PM CDT) ANTIBODY SCREEN Negative [facility] 07/15/2010 4:30 PM CDT Douglas Patricio MD BLOOD BANK ORDERABLE S Performing Organization Address [facility] Phone Number INTERFACE SYSTEM Refer to clinic/hospital department [facility] CLIA# [id number] [address] [place] [address] * TYPE AND SCREEN, (07/15/2010 12:00 AM CDT) HISTORY CHECK History Checked [facility] ABO/RH TYPE B Positive [facility] Blood specimen (specimen) 07/15/2010 07/15/2010 10:51 PM CDT Douglas Patricio MD BLOOD BANK ORDERABLE S Performing Organization Address [facility] Phone Number INTERFACE SYSTEM Refer to clinic/hospital department [facility] CLIA# [id number] [address] [place] [address] documented in this encounter Visit Diagnoses Diagnosis examination or test, positive result documented in this encounter Care Teams Starchmaker Relationship Specialty Start Date End Date Annalisa Christopher MD [address] [facility] [address] [place] [address] PCP - General 07/07/08 documented as of this encounter
--- OUTSIDE RECORDS SUMMARY | 2024-10-06 18:48 | XMS_ITS | Encounter Summary ---
Author Organization [facility] Address [address] [place] [address] Care Team Providers Care Molecular Technologist Name Role Phone Annalisa Christopher MD Primary Care Provider [phone] Reason for Visit * Reason Onset Date Comments Bladder Infection 10/07/2008 Encounter Details Date Type Department Care Team (Late st Contact Info) Description 10/07/2008 Telephone [facility] Primary Care - [address] [place] [address] Annalisa Christopher MD [address] [place] [address] [address] [place] [address] Bladder Infection Social History Tobacco Use Types Packs/Day [...] * Telephone Encounter - Josefina Dye - 10/07/2008 9:44 AM CST Spoke with pt and sched appt RAISING DIRECTOR * Telephone Encounter - Annalisa Christopher MD - 10/07/2008 9:24 AM CST Visit? RAISING DIRECTOR * Telephone Encounter - Tiana Brothers - 10/07/2008 8:57 AM FUNDRAISING DIRECTOR BLADDER INFECTION, CLOUDY, PAIN, FREQUENCY, PRESSURE, SX SINCE SUN RAISING DIRECTOR documented in this encounter Plan of Treatment Upcoming Encounters Date Type Department Care Team (Late st Contact Info) Description 04/25/2025 8:20 AM CDT Office Visit [facility] Primary Care - [facility] [address] [facility] [address] [place] [address] Annalisa Christopher MD [address] [facility] [address] [place] [address] documented as of this encounter Visit Diagnoses Not on filedocumented in this encounter Care Teams Molecular Technologist Relationship Specialty Start Date End Date Annalisa Christopher MD [address] [facility] [address] [place] [address] PCP - General 07/07/08 documented as of this encounter
--- OUTSIDE RECORDS SUMMARY | 2024-10-06 18:48 | XMS_ITS | Encounter Summary ---
Author Organization [facility] Address [address] [place] [address] Care Team Providers Care Geological Sample Tester Name Role Phone Annalisa Christopher MD Primary Care Provider [phone] Reason for Visit * Reason Onset Date Comments Results 11/12/2010 Encounter Details Date Type Department Care Team (Late st Contact Info) Description 11/12/2010 Telephone [facility] Primary Care - [address] [place] [address] Annalisa Christopher MD [address] [place] [address] [address] [place] [address] Results Social History Tobacco Use [...] Spoke to pt and will ck mychart GER SERVICE DESK * Telephone Encounter - Annalisa Christopher MD - 11/12/2010 9:54 AM CST Did she look at MyChart? GER SERVICE DESK * Telephone Encounter - Tiana Brothers Husam - 11/12/2010 9:31 AM MANAGER SERVICE DESK RESULTS LABS GER SERVICE DESK documented in this encounter Plan of Treatment Upcoming Encounters Date Type Department Care Team (Late st Contact Info) Description 04/25/2025 8:20 AM CDT Office Visit [facility] Primary Care - [facility] [address] [facility] [address] [place] [phone] Annalisa Christopher MD [address] [facility] [address] [place] [address] documented as of this encounter Visit Diagnoses Not on filedocumented in this encounter Care Teams Geological Sample Tester Relationship Specialty Start Date End Date Annalisa Christopher MD [address] [facility] [address] [place] [address] PCP - General 07/07/08 documented as of this encounter
--- OUTSIDE RECORDS SUMMARY | 2024-10-06 18:48 | XMS_ITS | Encounter Summary ---
Author Organization [facility] Address [address] [place] [address] Care Team Providers Care Assistant Sales Director Name Role Phone Annalisa Christopher MD Primary Care Provider [phone] Encounter Details Date Type Department Care Team (Late st Contact Info) Description 07/01/2003 Outpatient Historical [facility] ANTICHECKING IRON WORKER - [facility] [address] [facility] [address] [place] [address] Gavin Hadley MD [address] [place] [address] Social History Tobacco Use Types [...] Visit [facility] Primary Care - [facility] [address] [place] [address] Annalisa Christopher MD [address] [place] [address] documented as of this encounter Visit Diagnoses Not on filedocumented in this encounter Care Teams Assistant Sales Director Relationship Specialty Start Date End Date Annalisa Christopher MD [address] [place] [address] PCP - General 07/07/08 documented as of this encounter
--- OUTSIDE RECORDS SUMMARY | 2024-10-06 18:48 | XMS_ITS | Encounter Summary ---
Author Organization [facility] Address [address] [place] [address] Care Team Providers Care Director Medicaid Name Role Phone Annalisa Christopher MD Primary Care Provider [phone] Encounter Details Date Type Department Care Team (Late st Contact Info) Description 11/29/2003 Outpatient Historical [facility] CLOTH STRETCHER - [facility] [address] [facility] [address] [place] [address] Gavin Hadley MD [address] [place] [address] Social History Tobacco Use Types [...] [facility] Primary Care - [facility] [address] [place] [address] Annalisa Christopher MD [address] [place] [address] documented as of this encounter Visit Diagnoses Not on filedocumented in this encounter Care Teams Director Medicaid Relationship Specialty Start Date End Date Annalisa Christopher MD [address] [place] [address] PCP - General 07/07/08 documented as of this encounter
--- OUTSIDE RECORDS SUMMARY | 2024-10-06 18:48 | XMS_ITS | Encounter Summary ---
Author Organization [facility] Address [address] [place] [address] Care Team Providers Care Conduit Worker Name Role Phone Annalisa Christopher MD Primary Care Provider [phone] Encounter Details Date Type Department Care Team (Latest Contact Info) Description 04/27/2005 Outpatient Historical [facility] Kacey Potter MD NO ADDRESS ON [...] Office Visit [facility] Primary Care - [facility] [address] [place] [address] [place] [address] Annalisa Christopher MD [address] [place] [address] [address] [place] [address] documented as of this encounter Visit Diagnoses Diagnosis Abdominal pain, unspecified site- Primary documented in this encounter Care Teams Conduit Worker Relationship Specialty Start Date End Date Annalisa Christopher MD [address] [place] [address] Rd [address] [place] [address] PCP - General 07/07/08 documented as of this encounter
--- OUTSIDE RECORDS SUMMARY | 2024-10-06 18:48 | XMS_ITS | Encounter Summary ---
Author Organization [facility] Address [address] [place] [address] Care Team Providers Care Vp Respiratory Name Role Phone Annalisa Christopher MD Primary Care Provider [phone] Encounter Details Date Type Department Care Team [...] Visit [facility] Primary Care - [address] [place] [address] Annalisa Christopher MD [address] [place] [address] documented as of this encounter Visit Diagnoses Not on filedocumented in this encounter Care Teams Vp Respiratory Relationship Specialty Start Date End Date Annalisa Christopher MD [address] [place] [address] PCP - General 07/07/08 documented as of this encounter
--- OUTSIDE RECORDS SUMMARY | 2024-10-06 18:48 | XMS_ITS | Encounter Summary ---
Author Organization [facility] Address [address] [place] [address] Care Team Providers Care Restaurant Worker Name Role Phone Annalisa Christopher MD Primary Care Provider [phone] Encounter Details Date Type Department Care Team (Latest Contact Info) Description 07/15/2010 9:42 PM CDT - 07/15/2010 11:59 PM CDT Hospital Encounter [facility] Laboratory Support Services S [facility] [address] [place] [address] Douglas Patricio MD [address] [facility] [address] [address] examination or test, positive result [...] Visit [facility] Primary Care - [address] [place] [address] Annalisa Christopher MD [address] [place] [address] [address] [place] [address] documented as of this encounter Procedures Procedure Name Priority Date/Time Associated Diagnosis Comments CHLAMYDIA/N. GONORRHOEAE, DNA Routine 07/15/2010 3:52 PM CDT examination or test, positive result Screening examination for venereal disease documented in this encounter Results * CHLAMYDIA/N. GONORRHOEAE, DNA (07/15/2010 3:52 PM CDT) CHLAMYDIA TRACHOMATIS DNA NOT DETECTED NOT DETECTED [facility] NEISSERIA GONORRHOEAE DNA NOT DETECTED NOT DETECTED [facility] GC AND CHLAMYDIA PROBE COMMENT See Result Comment [facility] Comment: This test was performed using the BD ProbeTec(TM) ET Chlamydia trachomatis and Neisseria gonorrhoeae Amplified DNA Assays. ? Lab test performed by: [employer] [facility] [address] [place] [address] NELSON FRENCH DO,MPH Specimen of unknown material (specimen) (Vaginal) 07/15/2010 3:52 PM CDT 07/15/2010 9:45 PM CDT Comment:ENDOCERVICAL Douglas Patricio MD BODY FLUIDS AND STOO LS [facility] CLIA# [id number] [address] [facility] [place] [address] documented in this encounter Visit Diagnoses Diagnosis examination or test, positive result Screening examination for venereal disease documented in this encounter Care Teams Restaurant Worker Relationship Specialty Start Date End Date Annalisa Christopher MD [address] [place] [address] PCP - General 07/07/08 documented as of this encounter
--- OUTSIDE RECORDS SUMMARY | 2024-10-06 18:48 | XMS_ITS | Encounter Summary ---
Author Organization [facility] Address [address] [place] [address] Care Team Providers Care Car Hopper Name Role Phone Annalisa Christopher MD Primary Care Provider [phone] Reason for Visit * Reason Onset Date Comments Sinus Problem 01/14/2010 Encounter Details Date Type Department Care Team (Late st Contact Info) Description 01/14/2010 Telephone [facility] Primary Care - [address] [place] [address] Annalisa Christopher MD [address] [place] [address] [address] [place] [address] Sinus Problem Social History Tobacco [...] [facility] Primary Care - [facility] [place] [place] [address] [facility] [address] [place] [address] Annalisa Christopher MD [address] [facility] [address] [place] [address] documented as of this encounter Visit Diagnoses Not on filedocumented in this encounter Care Teams Car Hopper Relationship Specialty Start Date End Date Annalisa Christopher MD [address] [place] [address] PCP - General 07/07/08 documented as of this encounter
--- OUTSIDE RECORDS SUMMARY | 2024-10-06 18:48 | XMS_ITS | Encounter Summary ---
Author Organization [facility] Address [address] [place] [address] Care Team Providers Care Upholstery Department Supervisor Name Role Phone Annalisa Christopher MD Primary Care Provider [phone] Reason for Visit * Reason Onset Date Comments Medication Refill 10/03/2008 Encounter Details Date Type Department Care Team (Late st Contact Info) Description 10/03/2008 Refill [facility] Primary Care - [address] [place] [address] Annalisa Christopher MD [address] [place] [address] [place] [address] Social History Tobacco Use Types Packs/Day [...] - 10/03/2008 10:28 AM CST Lf-07/07/08 #20 ER ANALYST documented in this encounter Plan of Treatment Upcoming Encounters Date Type Department Care Team (Late st Contact Info) Description 04/25/2025 8:20 AM CDT Office Visit [facility]3] Primary Care - [facility] [address] [place] [address] Annalisa Christopher MD [address] [place] [address] documented as of this encounter Visit Diagnoses Not on filedocumented in this encounter Care Teams Upholstery Department Supervisor Relationship Specialty Start Date End Date Annalisa Christopher MD [address] [place] [address] PCP - General 07/07/08 documented as of this encounter
--- OUTSIDE RECORDS SUMMARY | 2024-10-06 18:48 | XMS_ITS | Encounter Summary ---
Author Organization [facility] Address [address] [place] [address] Care Team Providers Care Bilingual Research Interviewer Name Role Phone Annalisa Christopher MD Primary Care Provider [phone] Encounter Details Date Type Department Care Team (Latest Contact Info) Description 10/07/2010 1:52 PM GUEST ROOM ATTENDANT - 10/07/2010 11:59 PM [facility] Hospital Encounter [facility] Laboratory Support Services [address] [place] [address] Annalisa Christopher MD [address] [place] [address] [address] [place] [address] Primary hypercoagulable state Discharge Disposition: [...] Center Primary Care - [facility] [address] [facility] [address] [place] [address] Annalisa Christopher MD [address] [place] [address] [address] [place] [address] documented as of this encounter Procedures Procedure Name Priority Date/Time Associated Diagnosis Comments ANTIPHOSPHOLIPID ANTIBODIES Routine 10/07/2010 9:45 AM GUEST ROOM ATTENDANT Primary hypercoagulable state CARDIOLIPIN IGG/IGM Routine 10/07/2010 9 :45 AM GUEST ROOM ATTENDANT PROTEIN S ACTIVITY Routine 10/07/2010 9: 45 AM GUEST ROOM ATTENDANT Primary hypercoagulable state CBC WITH DIFFERENTIAL Routine 10/07/2010 9:45 AM GUEST ROOM ATTENDANT Primary hypercoagulable state PROTEIN C ACTIVITY Routine 10/07/2010 9: 45 AM GUEST ROOM ATTENDANT Primary hypercoagulable state ANTITHROMBIN III ACTIVITY Routine 10/07/2010 9:45 AM GUEST ROOM ATTENDANT Primary hypercoagulable state documented in this encounter Results * CARDIOLIPIN ANTIBODY SCREEN (10/07/2010 9:45 AM GUEST ROOM ATTENDANT) CARDIOLIPIN AB SCREEN Negative [facility] Comment: Reference range: ??Negative ? On [...] undefined reactants. ? Lab test performed by: [employer] [address] [place] [address] EFRA SALVADOR MD Blood specimen (specimen) 10/07/2010 9:45 AM GUEST ROOM ATTENDANT 10/07/2010 2:05 PM GUEST ROOM ATTENDANT Annalisa Christopher MD CHEMISTRY ORDERABLES [facility] CLIA# [id number] [address] [place] [address] * CBC WITH DIFFERENTIAL (10/07/2010 9:45 AM GUEST ROOM ATTENDANT) WBC 5.6 4.0 - 9.8 K/uL [facility] RBC 4.62 3.90 - 4.90 M/uL [facility] HEMOGLOBIN 13.8 11.8 - 14.8 g/dL [facility] HEMATOCRIT 41.9 35.5 - 44.0 % [facility] MCV 90.7 82.0 - 99.0 fL [facility] MCH 29.9 27.2 - 32.6 pg [facility] MCHC 32.9 31.5 - 35.5 % [facility] PLATELETS 233 140 - 350 K/uL [facility] MPV 10.2 9.3 - 12.4 fL [facility] RDW 12.7 11.5 - 14.5 % [facility] RDW-STDEV 42.2 37.1 - 48.7 fL [facility] NEUTROPHILS 59 45 - 70 % [facility] LYMPHOCYTES 29 16 - 45 % [facility] MONOCYTES 10 3 - 13 % [facility] EOSINOPHILS 1 0 - 7 % [facility] BASOPHILS 0 0 - 2 % [facility] NEUTROPHIL ABSOLUTE 3.29 1.90 - 7.00 K/uL [facility] LYMPHOCYTE ABSOLUTE 1.63 0.70 - 4.50 K/uL [facility] MONOCYTE ABSOLUTE 0.56 0.10 - 1.30 K/uL [facility] EOSINOPHIL ABSOLUTE 0.07 0.00 - 0.70 K/uL [facility] BASOPHILS ABSOLUTE 0.01 0.00 - 0.20 K/uL [facility] Blood specimen (specimen) 10/07/2010 9:45 AM GUEST ROOM ATTENDANT 10/07/2010 2:05 PM GUEST ROOM ATTENDANT Annalisa Christopher MD HEMATOLOGY ORDERABLE S Performing Organization Address [facility] Co de Phone Number [facility] CLIA# [id number] [address] [place] [address] * (ABNORMAL) ANTITHROMBIN III ACTIVITY (10/07/2010 9:45 AM GUEST ROOM ATTENDANT) ANTITHROMBIN III ACTIVITY 133(H) 85 - 130 U/dL [facility] Comment: Performed by [facility] Coagulation Reference Laboratory, [address] [place], [place] [address]k[place] [address] Blood specimen (specimen) 10/07/2010 9:45 AM GUEST ROOM ATTENDANT 10/07/2010 2:05 PM GUEST ROOM ATTENDANT Annalisa Christopher MD HEMATOLOGY ORDERABLE S Performing Organization Address [facility] Co de Phone Number [facility] CLIA# [id number] [address] [place] [address] * ANTIPHOSPHOLIPID ANTIBODIES (10/07/2010 9:45 AM GUEST ROOM ATTENDANT) COMMENT See Cardiolipin Ab Screen. [facility] Comment: Per Laboratory protocol, Antiphospholipid Antibodies has been replaced with Cardiolipin Antibody Screen. Blood specimen (specimen) 10/07/2010 9:45 AM GUEST ROOM ATTENDANT 10/07/2010 2:05 PM GUEST ROOM ATTENDANT Annalisa Christopher MD CHEMISTRY ORDERABLES COM Performing Organization Address [facility] Co de Phone Number [facility] CLIA# [id number] [address] [place] [address] * PROTEIN C ACTIVITY (10/07/2010 9:45 AM GUEST ROOM ATTENDANT) PROTEIN C ACTIVITY 100 75 - 165 U/dL [facility] Comment: Reference ranges are not available for children or adolescents less that age 18. Performed by [facility], [address] [place] [address] Blood specimen (specimen) 10/07/2010 9:45 AM GUEST ROOM ATTENDANT 10/07/2010 2:05 PM GUEST ROOM ATTENDANT Annalisa Christopher MD HEMATOLOGY ORDERABLE S Performing Organization Address City/[facility]/ZIP Co de Phone Number [facility] CLIA# [id number] [address] [place] [address] * PROTEIN S ACTIVITY (10/07/2010 9:45 AM GUEST ROOM ATTENDANT) PROTEIN S ACTIVITY 85 70 - 130 U/dL [facility] Comment: Performed by [facility], [address] [place] [address] Blood specimen (specimen) 10/07/2010 9:45 AM GUEST ROOM ATTENDANT 10/07/2010 2:05 PM GUEST ROOM ATTENDANT Annalisa Christopher MD CHEMISTRY ORDERABLES Performing Organization Address City/[facility] Co de Phone Number [facility] CLIA# [id number] [address] [place] [address] documented in this encounter Visit Diagnoses Diagnosis Primary hypercoagulable state documented in this encounter Care Teams Bilingual Research Interviewer Relationship Specialty Start Date End Date Annalisa Christopher MD [address] [place] [address] PCP - General 07/07/08 documented as of this encounter
--- OUTSIDE RECORDS SUMMARY | 2024-10-06 18:48 | XMS_ITS | Encounter Summary ---
Author Organization [facility] Address [address] [place] [address] Care Team Providers Care Soil Technologist Name Role Phone Annalisa Christopher MD Primary Care Provider [phone] Reason for Visit * Reason Onset Date Comments Rash 07/27/2011 Encounter Details Date Type Department Care Team (Late st Contact Info) Description 07/27/2011 Telephone [facility] CATERING SOUS CHEF - [address] [place] [address] Douglas Patricio MD [address] [place] [address] [place] [phone] Rash Social History Tobacco Use Types [...] [facility]) Primary Care - [facility] [address] [facility] [address] [place] [address] Annalisa Christopher MD [address] [facility] [address] [place] [address] documented as of this encounter Visit Diagnoses Not on filedocumented in this encounter Care Teams Soil Technologist Relationship Specialty Start Date End Date Annalisa Christopher MD [address] [facility] [address] [place] [address] PCP - General 07/07/08 documented as of this encounter
--- OUTSIDE RECORDS SUMMARY | 2024-10-06 18:48 | XMS_ITS | Encounter Summary ---
Author Organization [facility] Address [address] [place] [address] Care Team Providers Care Manager Trust Name Role Phone Annalisa Christopher MD Primary Care Provider [phone] Encounter Details Date Type Department Care Team (Late st Contact Info) Description 12/27/2007 Outpatient Historical [facility] [address] [place] [address] Annalisa Christopher MD [address] [place] [address] [address] [place] [address] Social History Tobacco Use Types [...] 8:20 AM CDT Office Visit [facility] [address] [place] [address] Annalisa Christopher MD [address] [place] [address] [address] [place] [address] documented as of this encounter Visit Diagnoses Not on filedocumented in this encounter Care Teams Manager Trust Relationship Specialty Start Date End Date Annalisa Christopher MD [address] [place] [address] PCP - General 07/07/08 documented as of this encounter
--- OUTSIDE RECORDS SUMMARY | 2024-10-06 18:48 | XMS_ITS | Encounter Summary ---
Author Organization [facility] Address [address] [place] [address] Care Team Providers Care Back Panel Padder Name Role Phone Annalisa Christopher MD Primary Care Provider [phone] Encounter Details Date Type Department Care Team (Latest Contact Info) Description 02/01/2011 2:03 PM CDT - 02/01/2011 11:59 PM CDT Hospital Encounter [facility] Laboratory Support Services [facility] [address] [place] [address] Douglas Patricio MD [address] [facility] [address] [address] Discharge Disposition: Home or Self [...] [facility] Primary Care - [address] [place] [address] Annalisa Christopher MD [address] [place] [address] [address] [place] [address] documented as of this encounter Procedures Procedure Name Priority Date/Time Associated Diagnosis Comments CHLAMYDIA AND GC, PAP VIAL Routine 02/01/2011 10:43 AM CDT Screening examination for venereal disease CERV/VAG CYTOPATH, SUREPATH W/RFLX HPV Routine 02/01/2011 10:43 AM CDT Routine gynecological examination documented in this encounter Results * CHLAMYDIA AND GC, PAP VIAL (02/01/2011 10:43 AM CDT) CHLAMYDIA TRACHOMATIS DNA NOT DETECTED [facility] Comment:Reference Range: Not Detected GC DNA AMPLIFICATION NOT DETECTED [facility] Comment:Reference Range: Not Detected GC AND CHLAMYDIA PROBE COMMENT See Result Comment [facility] Comment: This test was performed using the [employer] ProbeTec(TM) Chlamydia trachomatis and Neisseria gonorrhoeae Amplified DNA Assays. ? Lab test performed by: [facility] [address] [address] NELSON FRENCH DO Endocervical 02/01/2011 10:4 3 AM CDT 02/01/2011 2:10 PM CDT Comment:ENDOCERVICAL Douglas Patricio MD BODY FLUIDS AND STOO [employer] [facility] CLIA# [id number] [address] [place] [address] * CERV/VAG CYTOPATH, SUREPATH W/RFLX HPV (02/01/2011 10:43 AM CDT) CLINICAL INFORMATION [facility] PREV PAP: 28 10 WNL [facility] LAST MENSTRUAL PERIOD 03 21 11 [facility] PAP INTERP Negative for intraepithelial lesion or malignancy. [facility] Accounts Receivable Collector Pap Comment Based on the cytology result, reflex High Risk HPV DNA testing was not performed. [facility] ADEQUACY: Satisfactory for evaluation. Endocervical/trans formation zone component present. [facility] SOURCE Endocervix [facility] CYTOTECHNOLOGI ST: MMW, CT(ASCP) [facility] Comment: ? Lab test performed by: [facility] [address] [address] NELSON FRENCH DO PREV BX: Information not provided [facility] REPORT STATUS FINAL [facility] Endocervical 02/01/2011 10:4 3 AM CDT 02/01/2011 2:10 PM CDT Comment:ENDOCERVICAL Douglas Patricio MD PATHOLOGY/CYTOLOGY O RDERABLES Performing Organization Address City/State/[facility] Co de Phone Number [facility] CLIA# [id number] [address] [place] [address] documented in this encounter Visit Diagnoses Diagnosis Routine gynecological examination Screening examination for venereal disease documented in this encounter Care Teams Back Panel Padder Relationship Specialty Start Date End Date Annalisa Christopher MD [address] [place] [address] PCP - General 07/07/08 documented as of this encounter
--- OUTSIDE RECORDS SUMMARY | 2024-10-06 18:48 | XMS_ITS | Encounter Summary ---
Author Organization [facility] Address [address] [place] [address] Care Team Providers Care Au Pair Name Role Phone Annalisa Christopher MD Primary Care Provider [phone] Encounter Details Date Type Department Care Team (Late st Contact Info) Description 10/16/2007 Outpatient Historical [facility] AIR TRAFFIC INSTRUCTOR - [facility] [address] [facility] [address] [place] [address] Douglas Patricio MD [address] [facility] [address] [place] [phone] Social History Tobacco Use Types Packs/Day [...] [facility] Primary Care - [facility] [address] [facility] [address] [place] [address] Annalisa Christopher MD [address] [place] [address] [address] [place] [address] documented as of this encounter Visit Diagnoses Not on filedocumented in this encounter Care Teams Au Pair Relationship Specialty Start Date End Date Annalisa Christopher MD [address] [place] [address] [address] [place] [phone] PCP - General 07/07/08 documented as of this encounter
--- OUTSIDE RECORDS SUMMARY | 2024-10-06 18:48 | XMS_ITS | Encounter Summary ---
Author Organization [facility] Address [address] [place] [address] Care Team Providers Care Foil Stamp Operator Name Role Phone Annalisa Christopher MD Primary Care Provider [phone] Reason for Visit * Reason Onset Date Comments Upper Respiratory Symptoms 07/26/2010 Encounter Details Date Type Department Care Team (Late st Contact Info) Description 07/26/2010 Telephone [facility] PRELOAD SUPERVISOR - [address] [address] Douglas Patricio MD [address] [place] [address] [place] [address] Upper Respiratory Symptoms Social History Tobacco [...] Office Visit [facility] Primary Care - [facility] [address] [place] [address] Annalisa Christopher MD [address] [place] [address] documented as of this encounter Visit Diagnoses Not on filedocumented in this encounter Care Teams Foil Stamp Operator Relationship Specialty Start Date End Date Annalisa Christopher MD [address] [place] [address] PCP - General 07/07/08 documented as of this encounter
--- OUTSIDE RECORDS SUMMARY | 2024-10-06 18:48 | XMS_ITS | Encounter Summary ---
Author Organization [facility] Address [address] [place] [address] Care Team Providers Care Social Work Therapist Name Role Phone Annalisa Christopher MD Primary Care Provider [phone] Reason for Visit * Reason Onset Date Comments Upper Respiratory Symptoms 10/06/2009 Encounter Details Date Type Department Care Team (Late st Contact Info) Description 10/06/2009 Telephone [facility] Primary Care - [address] [place] [address] Annalisa Christopher MD [address] [place] [address] [address] [place] [address] Upper Respiratory Symptoms Social History [...] Spoke with pt and added to sched YBACK CLERK * Telephone Encounter - Annalisa Christopher MD - 10/06/2009 9:59 AM CST 3pm appt YBACK CLERK * Telephone Encounter - Emely Cuadra - 10/06/2009 8:39 AM CST Hoarse, drainage, thick yellow mucous, prod cough, no wheeze or sob, Pt does have asthma, sore throat, no fever, sinus pressure, pressure in ears. Did have migraine x fri. Pt is using zyrtec d, otc cough meds. Pt would like rx or appt. YBACK CLERK documented in this encounter Plan of Treatment Upcoming Encounters Date Type Department Care Team (Late st Contact Info) Description 04/25/2025 8:20 AM CDT Office Visit [facility] Primary Care - [facility] [address] [facility] [address] [place] [address] Annalisa Christopher MD [address] [facility] [address] [place] [address] documented as of this encounter Visit Diagnoses Not on filedocumented in this encounter Care Teams Social Work Therapist Relationship Specialty Start Date End Date Annalisa Christopher MD [address] [facility] [address] [place] [address] PCP - General 07/07/08 documented as of this encounter
--- OUTSIDE RECORDS SUMMARY | 2024-10-06 18:48 | XMS_ITS | Encounter Summary ---
Author Organization [facility] Address [address] [place] [address] Care Team Providers Care Mysql Developer Name Role Phone Annalisa Christopher MD Primary Care Provider [phone] Reason for Visit * Reason Comments Ultrasound Encounter Details Date Type Department Care Team (Late st Contact Info) Description 02/04/2011 9:10 AM CDT Office Visit [facility] FRONT END WHEEL LOADER OPERATOR - [facility] [address] [facility] [address] [address] Griselda Alvarez Establish gestational age, [...] Office Visit [facility] Primary Care - [address] [place] [address] Annalisa Christopher MD [address] [place] [address] documented as of this encounter Procedures Procedure Name Priority Date/Time Associated Diagnosis Comments US OB TRANSVAGINAL Routine 02/04/2011 Establish gestational age, ultrasound documented in this encounter Results * US OB TRANSVAGINAL (02/04/2011) Anatomical Region Laterality Modality Pelvis Other Impressions 02/04/2011 Fabiana Pyror is a 35 y.o. is here for [...] ultrasonics documented in this encounter Care Teams Mysql Developer Relationship Specialty Start Date End Date Annalisa Christopher MD [address] [place] [address] PCP - General 07/07/08 documented as of this encounter
--- OUTSIDE RECORDS SUMMARY | 2024-10-06 18:48 | XMS_ITS | Encounter Summary ---
Author Organization [facility] Address [address] [place] [address] Care Team Providers Care Field Staff Name Role Phone Annalisa Christopher MD Primary Care Provider [phone] Encounter Details Date Type Department Care Team (Latest Contact Info) Description 11/29/2003 Inpatient Historical [facility] PATIENT IN A BED Gavin Hadley MD [address] [place] [address] MALPOSITION NEC-DELIVER (Primary Dx) Social [...] [facility] Primary Care - [facility] [address] [facility] [address] [place] [address] Annalisa Christopher MD [address] [place] [address] [address] [place] [address] documented as of this encounter Visit Diagnoses Diagnosis Other specified malposition or malpresentation of fetus, delivered- Primary documented in this encounter Care Teams Field Staff Relationship Specialty Start Date End Date Annalisa Christopher MD [address] [facility] [address] [place] [address] PCP - General 07/07/08 documented as of this encounter
--- OUTSIDE RECORDS SUMMARY | 2024-10-06 18:48 | XMS_ITS | Encounter Summary ---
Author Organization [facility] Address [address] [place] [address] Care Team Providers Care Lumber Planer Name Role Phone Annalisa Christopher MD Primary Care Provider [phone] Encounter Details Date Type Department Care Team (Late st Contact Info) Description 01/19/2004 Outpatient Historical [facility] CLIENT SERVICE AND CONSULTING MANAGER - [facility] [address] [facility] [address] [place] [address] Gavin Hadley MD [address] [place] [address] Social History Tobacco Use Types [...] [facility] Primary Care - [facility] [address] [place] [address] Annalisa Christopher MD [address] [place] [address] documented as of this encounter Visit Diagnoses Not on filedocumented in this encounter Care Teams Lumber Planer Relationship Specialty Start Date End Date Annalisa Christopher MD [address] [place] [address] PCP - General 07/07/08 documented as of this encounter
--- OUTSIDE RECORDS SUMMARY | 2024-10-06 18:48 | XMS_ITS | Encounter Summary ---
Author Organization [facility] Address [address] [place] [address] Care Team Providers Care Studio Producer Name Role Phone Annalisa Christopher MD Primary Care Provider [phone] Reason for Visit * Reason Comments Post-op Visit 2 wks D&C missed AB Encounter Details Date Type Department Care Team (Late st Contact Info) Description 09/23/2010 1:30 PM CEMENT SPRAYER HELPER Office Visit [facility] DATA CENTER ENGINEER - [address] [address] Douglas Patricio MD [address] [place] [address] [place] [phone] Follow-up examination, following unspecified surgery (Primary [...] Comments Blood Pressure 130/80 09/23/2010 1:39 PM CEMENT SPRAYER HELPER Pulse - - Temperature - - Respiratory Rate - - Oxygen Saturation - - Inhaled Oxygen Concentration - - Weight 81.2 kg (179 lb) 09/23/2010 1:39 PM CEMENT SPRAYER HELPER Height - - Body Mass Index 28.04 09/07/2010 1:11 PM CEMENT SPRAYER HELPER documented in this encounter Progress Notes * [...] complications. Return to the office as needed. NT SPRAYER HELPER documented in this encounter Plan of Treatment Upcoming Encounters Date Type Department Care Team (Late st Contact Info) Description 04/25/2025 8:20 AM CDT Office Visit [facility] Primary Care - [place] [id number] [facility] [address] [place] [phone] Annalisa Christopher MD [address] [place] [address] [place] [phone] documented as of this encounter Visit Diagnoses Diagnosis Follow-up examination, following unspecified surgery- Primary documented in this encounter Care Teams Studio Producer Relationship Specialty Start Date End Date Annalisa Christopher MD [address] [place] [address] [place] [phone] PCP - General 07/07/08 documented as of this encounter
--- OUTSIDE RECORDS SUMMARY | 2024-10-06 18:48 | XMS_ITS | Encounter Summary ---
Author Organization [facility] Address [address] [place] [address] Care Team Providers Care It Corporate Recruiter Name Role Phone Annalisa Christopher MD Primary Care Provider [phone] Encounter Details Date Type Department Care Team (Late st Contact Info) Description 11/18/2003 Outpatient Historical [facility] WATCH LEADER - [facility] [address] [place] [address] Gavin Hadley MD [address] [place] [address] Social History Tobacco Use Types [...] Of [facility] Primary Care - [facility] [address] [place] [address] Annalisa Christopher MD [address] [place] [address] documented as of this encounter Visit Diagnoses Not on filedocumented in this encounter Care Teams It Corporate Recruiter Relationship Specialty Start Date End Date Annalisa Christopher MD [address] [place] [address] PCP - General 07/07/08 documented as of this encounter
--- OUTSIDE RECORDS SUMMARY | 2024-10-06 18:48 | XMS_ITS | Encounter Summary ---
Author Organization [facility] Address [address] [place] [address] Care Team Providers Care Hebrew Professor Name Role Phone Annalisa Christopher MD Primary Care Provider [phone] Encounter Details Date Type Department Care Team (Latest Contact Info) Description 02/01/2011 12:00 PM CDT - 02/01/2011 11:59 PM CDT Hospital Encounter [facility] [address] [address] Douglas Patricio MD [address] [place] [phone] Discharge Disposition: Home or Self Care [...] 04/25/2025 8:20 AM CDT Office Visit [facility] [address] [place] [address] [address] [place] [address] Annalisa Christopher MD [address] [place] [address] [address] [place] [address] documented as of this encounter Procedures Procedure Name Priority Date/Time Associated Diagnosis Comments PROGESTERONE Routine 02/01/2011 12:06 PM CDT examination or test, positive result HCG QUANTITATIVE, BLOOD Routine 02/01/2011 12:06 PM CDT examination or test, positive result documented in this encounter Results * PROGESTERONE (02/01/2011 12:06 PM CDT) PROGESTERONE 20.4 ng/mL [facility] Comment: Progesterone Reference Range: ?Female: Normally Menstruating Female ? Follicular Phase ?0.2 - 1.5 ??ng/mL ? Ovulation Phase ? 0.8 - 3.0 ??ng/mL ? Luteal Phase ?1.7 - 27.0 ng/mL ? Postmenopausal ?0.1 - 0.8 ??ng/mL No Pediatric Reference Range Available. Blood specimen (specimen) 02/01/2011 12:06 PM CDT 02/01/2011 1:48 PM CDT Douglas Patricio MD CHEMISTRY ORDERABLES [facility] CLIA# [id number] [address] [facility] [address] * (ABNORMAL) HCG QUANTITATIVE, BLOOD (02/01/2011 12:06 PM CDT) HCG QUANT, BLOOD 137,992(H ) 0 - 5 mIU/mL [facility] Comment: Result of 5 - 25 mIU/mL is indeterminant for , repeat of test recommemded in 48 hours. Reference Range: Gestational Age: 3 ??Weeks ?5.8 - 71.2 ?mIU/mL 4 ??Weeks ?9.5 - 750 ? mIU/mL 5 ??Weeks ?217 - 8421 ?mIU/mL 6 ??Weeks ?158 - 31,795 ?mIU/mL [...] PM CDT Douglas Patricio MD CHEMISTRY ORDERABLES [facility] CLIA# [id number] [address] [place] [address] documented in this encounter Visit Diagnoses Diagnosis examination or test, positive result documented in this encounter Care Teams Hebrew Professor Relationship Specialty Start Date End Date Annalisa Christopher MD [address] [place] [address] PCP - General 07/07/08 documented as of this encounter
--- OUTSIDE RECORDS SUMMARY | 2024-10-06 18:48 | XMS_ITS | Encounter Summary ---
Author Organization [facility] Address [address] [place] [address] Care Team Providers Care Employee Relations Consultant Name Role Phone Annalisa Christopher MD Primary Care Provider [phone] Encounter Details Date Type Department Care Team (Late st Contact Info) Description 02/03/2005 Outpatient Historical [facility] INSURANCE REPRESENTATIVE - [facility] [address] [place] [address] Gavin Hadley MD [address] [place] [address] Social History Tobacco Use Types [...] Visit [facility] Primary Care - [facility] [address] [place] [address] Annalisa Christopher MD [address] [place] [address] documented as of this encounter Visit Diagnoses Not on filedocumented in this encounter Care Teams Employee Relations Consultant Relationship Specialty Start Date End Date Annalisa Christopher MD [address] [place] [address] PCP - General 07/07/08 documented as of this encounter
--- OUTSIDE RECORDS SUMMARY | 2024-10-06 18:48 | XMS_ITS | Encounter Summary ---
Author Organization [facility] Address [address] [place] [address] Care Team Providers Care Fleet Director Name Role Phone Annalisa Christopher MD Primary Care Provider [phone] Encounter Details Date Type Department Care Team (Late st Contact Info) Description 08/25/2005 Outpatient Historical [facility] TONGUE CARRIER - [facility] [address] [place] [address] Douglas Patricio MD [address] [facility] [address] [place] [address] Social History Tobacco Use Types Packs/Day [...] Visit [facility] Primary Care - [facility] [address] [place] [address] Annalisa Christopher MD [address] [place] [address] [address] [place] [address] documented as of this encounter Visit Diagnoses Not on filedocumented in this encounter Care Teams Fleet Director Relationship Specialty Start Date End Date Annalisa Christopher MD [address] [place] [address] [address] [place] [address] PCP - General 07/07/08 documented as of this encounter
--- OUTSIDE RECORDS SUMMARY | 2024-10-06 18:48 | XMS_ITS | Encounter Summary ---
Author Organization [facility] Address [address] [place] [address] Care Team Providers Care Longshore Equipment Operator Name Role Phone Annalisa Christopher MD Primary Care Provider [phone] Reason for Visit * Reason Comments Initial Visit Encounter Details Date Type Department Care Team (Latest Contact Info) Description 07/15/2010 3:30 PM CDT Initial [facility] ENVIRONMENTAL REMEDIATION ENGINEER - [address] [address] Douglas Patricio MD [address] [place] [address] [place] [address] examination or test, positive result (Primary [...] Body Mass Index 27.25 10/22/2009 3:53 PM NURSE PRACTITIONER ADULT documented in this encounter Progress Notes * [...] [facility] Primary Care - [facility] [address] [place] [address] Annalisa Christopher MD [address] [place] [address] documented as of this encounter Procedures Procedure Name Priority Date/Time Associated Diagnosis Comments POC , URINE Routine 07/15/2010 3:51 PM CDT examination or test, positive result documented in this encounter Results * TSH REFLEXIVE (07/15/2010 4:41 PM CDT) TSH 0.63 0.27 - 4.20 uU/mL [facility] Blood specimen (specimen) 07/15/2010 4:41 PM CDT 07/15/2010 10:51 PM CDT Douglas Patricio MD CHEMISTRY ORDERABLES [facility] CLIA# [id number] [address] [place] [address] * PROGESTERONE (07/15/2010 4:41 PM CDT) PROGESTERONE 13.9 ng/mL [facility] Comment: Progesterone Reference Range: ?Female: Normally Menstruating Female ? Follicular Phase ?0.2 - 1.5 ??ng/mL ? Ovulation Phase ? 0.8 - 3.0 ??ng/mL ? Luteal Phase ?1.7 - 27.0 ng/mL ? Postmenopausal ?0.1 - 0.8 ??ng/mL No Pediatric Reference Range Available. Blood specimen (specimen) 07/15/2010 4:41 PM CDT 07/15/2010 10:51 PM CDT Douglas Patricio MD CHEMISTRY ORDERABLES Performing Organization Address [facility] de Phone Number [facility] CLIA# [id number] [address] [place] [address] * OBSTETRIC PANEL (07/15/2010 4:41 PM CDT) COMMENT See Additional Orderables [facility] Blood specimen (specimen) 07/15/2010 4:41 PM CDT 07/15/2010 10:51 PM CDT Douglas Patricio MD CHEMISTRY ORDERABLES Performing Organization Address [facility] de Phone Number [facility] CLIA# [id number] [address] [place] [address] * (ABNORMAL) HCG QUANTITATIVE, BLOOD (07/15/2010 4:41 PM CDT) HCG QUANT, BLOOD 7,897(H) 0 - 5 mIU/mL [facility] Comment: Result of 5 - 25 mIU/mL is indeterminant for , repeat of test recommemded in 48 hours. Reference Range: Gestational Age: 3 ??Weeks ?5.8 - 71.2 ?mIU/mL 4 ??Weeks ?9.5 - 750 ? mIU/mL 5 ??Weeks ?265 - 4230 ?mIU/mL 6 ??Weeks ?158 - 31,795 ?mIU/mL [...] Patricio MD CHEMISTRY ORDERABLES Performing Organization Address [facility]/State/ZIP Co de Phone Number [facility] CLIA# [id number] [address] [place] [address] * CHLAMYDIA/N. GONORRHOEAE, DNA (07/15/2010 3:52 PM CDT) [facility] CHLAMYDIA TRACHOMATIS DNA NOT DETECTED NOT DETECTED [facility] NEISSERIA GONORRHOEAE DNA NOT DETECTED NOT DETECTED [facility] GC AND CHLAMYDIA PROBE COMMENT See Result Comment [facility] Comment: This test was performed using the BD ProbeTec(TM) ET Chlamydia trachomatis and Neisseria gonorrhoeae Amplified DNA Assays. ? Lab test performed by: [facility] [address] [place] [address] NELSON FRENCH DO,MPH Specimen of unknown material (specimen) (Vaginal) 07/15/2010 3:52 PM CDT 07/15/2010 9:45 PM CDT Comment:ENDOCERVICAL Douglas Patricio MD BODY FLUIDS AND STOO LS [facility] CLIA# [id number] [address] [facility] [place] [address] * (ABNORMAL) POC , URINE (07/15/2010 3:51 PM CDT) [facility] HCG QUAL URINE NEG PHYSI [facility] OFFICE [...] result documented in this encounter Care Teams Longshore Equipment Operator Relationship Specialty Start Date End Date Annalisa Christopher MD [address] [place] [address] PCP - General 07/07/08 documented as of this encounter
--- OUTSIDE RECORDS SUMMARY | 2024-10-06 18:48 | XMS_ITS | Encounter Summary ---
Author Organization [facility] Address [address] [place] [address] Care Team Providers Care Delivery Merchandiser Name Role Phone Annalisa Christopher MD Primary Care Provider [phone] Reason for Visit * Reason Onset Date Comments Results 06/28/2011 Encounter Details Date Type Department Care Team (Late st Contact Info) Description 06/28/2011 Telephone [facility] MANAGER BODY - [address] [place] [address] Douglas Patricio MD [address] [place] [address] [place] [phone] Results Social History Tobacco Use Types [...] elevated GTT. Orders placed and faxed to [facility] for 3 hr test.TG documented in this encounter Plan of Treatment Upcoming Encounters Date Type Department Care Team (Late st Contact Info) Description 04/25/2025 8:20 AM CDT Office Visit [facility] Primary Care - [facility] [address] [address] [facility] [place] [address] Annalisa Christopher MD [address] [facility] [address] [place] [address] documented as of this encounter Procedures Procedure Name Priority Date/Time Associated Diagnosis Comments GLUCOSE TOLERANCE GESTATIONAL 3 HR Routine 06/30/2011 8:03 AM CDT documented in this encounter Results * GLUCOSE TOLERANCE GESTATIONAL 3 HR (06/30/2011 8:03 AM CDT) GLUCOSE FASTING - OB 83 65 - 94 mg/dL [facility] . [facility] GLUCOSE, 1HR 164 <180 mg/dL [facility] GLUCOSE, 2HR 144 <155 mg/dL [facility] GLUCOSE, 3HR 124 <140 mg/dL [facility] . [facility] SEE NOTE [facility] Comment: ADA Guidelines: Two or more values ?? greater than the above reference intervals are suggestive of gestational diabetes. REPORT COMMENT: FASTING Test Performed at: [facility] [address] [place], [place] ??[address] NELSON FRENCH DO,MPH 06/30/2011 8:03 AM CDT Douglas Patricio MD CHEMISTRY ORDERABLES INTERFACE SYSTEM Refer to clinic/hospital department [facility] [address] [place] [address] documented in this encounter Visit Diagnoses Diagnosis Elevated glucose tolerance test Impaired glucose tolerance test documented in this encounter Care Teams Delivery Merchandiser Relationship Specialty Start Date End Date nAnalisa Christopher MD [address] [facility] [address] [place] [address] PCP - General 07/07/08 documented as of this encounter
--- OUTSIDE RECORDS SUMMARY | 2024-10-06 18:48 | XMS_ITS | Encounter Summary ---
Author Organization [facility] Address [address] [place] [address] Care Team Providers Care Community Health Advisor Name Role Phone Annalisa Christopher MD Primary Care Provider [phone] Reason for Visit * Reason Comments Routine Visit Encounter Details Date Type Department Care Team (Latest Contact Info) Description 08/12/2010 3:30 PM GETTERER visit [facility] ENVIRONMENTAL HEALTH TECHNOLOGIST - [address] [address] Douglas Patricio MD [address] [place] [address] [place] [phone] Supervision of other normal (Primary Dx) [...] Comments Blood Pressure 118/78 08/12/2010 3:30 PM GETTERER Pulse - - Temperature - - Respiratory Rate - - Oxygen Saturation - - Inhaled Oxygen Concentration - - Weight 80.3 kg (177 lb) 08/12/2010 3:30 PM GETTERER Height - - Body Mass Index 27.72 10/22/2009 3:53 PM GETTERER documented in this encounter Progress Notes * Douglas Patricio MD - 08/12/2010 3:53 PM CST Declines any genetic testing; labs and US normal ERER documented in this encounter Plan of Treatment Upcoming Encounters Date Type Department Care Team (Late st Contact Info) Description 04/25/2025 8:20 AM CDT Office Visit [facility] Primary Care - [facility] [address] [place] [address] Annalisa Christopher MD [address] [place] [address] documented as of this encounter Visit Diagnoses Diagnosis Supervision of other normal - Primary documented in this encounter Care Teams Community Health Advisor Relationship Specialty Start Date End Date Annalisa Christopher MD [address] [place] [address] PCP - General 07/07/08 documented as of this encounter
--- OUTSIDE RECORDS SUMMARY | 2024-10-06 18:48 | XMS_ITS | Encounter Summary ---
Author Organization [facility] Address [address] [place] [address] Care Team Providers Care Hooker Machine Tender Name Role Phone Annalisa Christopher MD Primary Care Provider [phone] Reason for Visit * Reason Comments Routine Visit Encounter Details Date Type Department Care Team (Latest Contact Info) Description 08/30/2011 4:00 PM PRIMARY SPECIAL EDUCATION TEACHER visit [facility] DATA INTEGRITY SPECIALIST - [address] [address] Douglas Patricio MD [address] [place] [address] [place] [phone] Supervision of other normal (Primary Dx) [...] Reading Time Taken Comments Blood Pressure 140/80 08/30/2011 3:59 PM PRIMARY SPECIAL EDUCATION TEACHER Pulse - - Temperature - - Respiratory Rate - - Oxygen Saturation - - Inhaled Oxygen Concentration - - Weight 104.8 kg (231 lb) 08/30/2011 3:59 PM PRIMARY SPECIAL EDUCATION TEACHER Height - - Body Mass Index 36.18 08/02/2011 3:25 PM PRIMARY SPECIAL EDUCATION TEACHER documented in this encounter Progress Notes * Douglas Patricio MD - 08/30/2011 4:22 PM CST Repeat BP 152/100; to [facility] for PIH evaluation [facility] SPECIAL EDUCATION TEACHER documented in this encounter Plan of Treatment Upcoming Encounters Date Type Department Care Team (Late st Contact Info) Description 04/25/2025 8:20 AM CDT Office Visit [facility] Primary Care - [facility] [address] [facility] [place] [address] Annalisa Christopher MD [address] [place] [address] documented as of this encounter Visit Diagnoses Diagnosis Supervision of other normal - Primary documented in this encounter Care Teams Hooker Machine Tender Relationship Specialty Start Date End Date Annalisa Christopher MD [address] [facility] [address] [place] [address] PCP - General 07/07/08 documented as of this encounter
--- OUTSIDE RECORDS SUMMARY | 2024-10-06 18:48 | XMS_ITS | Encounter Summary ---
Author Organization [facility] Address [address] [place] [address] Care Team Providers Care Automotive Collision Estimator Name Role Phone Annalisa Christopher MD Primary Care Provider [phone] Encounter Details Date Type Department Care Team (Late st Contact Info) Description 11/11/2003 Outpatient Historical [facility] EQUIPMENT OPERATOR WAGE HAND - [facility][1] [address] [address] [place] [address] Gavin Hadley MD [address] [place] [address] Social History Tobacco Use Types [...] Visit [facility] Primary Care - [facility][1] [address] [place] [address] Annalisa Christopher MD [address] [place] [address] documented as of this encounter Visit Diagnoses Not on filedocumented in this encounter Care Teams Automotive Collision Estimator Relationship Specialty Start Date End Date Annalisa Christopher MD [address] [place] [address] PCP - General 07/07/08 documented as of this encounter
--- OUTSIDE RECORDS SUMMARY | 2024-10-06 18:48 | XMS_ITS | Encounter Summary ---
Author Organization [facility] Address [address] [place] [address] Care Team Providers Care Cryptographic Machine Operator Name Role Phone Annalisa Christopher MD Primary Care Provider [phone] Reason for Visit * Reason Onset Date Comments Medication Refill 05/19/2010 Encounter Details Date Type Department Care Team (Late st Contact Info) Description 05/19/2010 Refill [facility] Primary Care - [address] [place] [address] Annalisa Christopher MD [address] [place] [address] [place] [address] Social History Tobacco Use Types Packs/Day [...] [facility] Primary Care - [facility] [address] [facility] [facility] [address] [place] [address] Annalisa Christopher MD [address] [place] [address] documented as of this encounter Visit Diagnoses Not on filedocumented in this encounter Care Teams Cryptographic Machine Operator Relationship Specialty Start Date End Date Annalisa Christopher MD [address] [place] [address] PCP - General 07/07/08 documented as of this encounter
--- OUTSIDE RECORDS SUMMARY | 2024-10-06 18:48 | XMS_ITS | Encounter Summary ---
Author Organization [facility] Address [address] [place] [address] Care Team Providers Care Inter Com Servicer Name Role Phone Annalisa Christopher MD Primary Care Provider [phone] Reason for Visit * Reason Comments Routine Visit Encounter Details Date Type Department Care Team (Latest Contact Info) Description 07/19/2011 3:30 PM CDT visit [facility] STUDIO OPERATION ENGINEER - [address] [address] Douglas Patricio MD [address] [place] [address] [place] [phone] Supervision of other normal (Primary Dx) [...] Visit [facility] Primary [facility] - [facility] [address] [facility] [address] [facility] [address] [place] [address] Annalisa Christopher MD [address] [facility] [address] [place] [address] documented as of this encounter Visit Diagnoses Diagnosis Supervision of other normal - Primary documented in this encounter Care Teams Inter Com Servicer Relationship Specialty Start Date End Date Annalisa Christopher MD [address] [facility] [address] [facility] [address] [place] [address] PCP - General 07/07/08 documented as of this encounter
--- OUTSIDE RECORDS SUMMARY | 2024-10-06 18:48 | XMS_ITS | Encounter Summary ---
Author Organization [facility] Address [address] [place] [address] Care Team Providers Care Spa Supervisor Name Role Phone Annalisa Christopher MD Primary Care Provider [phone] Encounter Details Date Type Department Care Team (Late st Contact Info) Description 08/26/2005 Outpatient Historical [facility] Horacio Bain MD [address] [place] [address] [place] [address] ABDOMINAL PAIN UNSPEC SITE (Primary [...] [facility] Primary Care - [facility] [address] [place] [address] Annalisa Christopher MD [address] [place] [address] documented as of this encounter Visit Diagnoses Diagnosis Abdominal pain, unspecified site- Primary documented in this encounter Care Teams Spa Supervisor Relationship Specialty Start Date End Date Annalisa Christopher MD [address] [place] [address] PCP - General 07/07/08 documented as of this encounter
--- OUTSIDE RECORDS SUMMARY | 2024-10-06 18:48 | XMS_ITS | Encounter Summary ---
Author Organization [facility] Address [address] [place] [address] Care Team Providers Care Iridologist Name Role Phone Annalisa Christopher MD Primary Care Provider [phone] Reason for Visit * Auth/Cert - Closed Specialty Diagnoses / Procedures Referred By Contac t Referred To Contact General Surgery Diagnoses MISSED AB Procedures DILATATION AND CURETTAGE SUCTION [facility] [address] [place] [address] Referral ID Status Reason Start Date Expiration Date Visits Re quested Visits Authorized [id number] Closed 09/07/2010 03/06/2011 1 Encounter Details Date Type Department Care Team (Latest Contact Info) Description 09/08/2010 1:36 PM [facility] - 09/08/2010 6:05 PM [facility] Hospital Encounter [facility] [address] [place] [address] Douglas Jeffrey MD [address] [address] Discharge Disposition: Home or Self [...] Comments Blood Pressure 108/53 09/08/2010 6:00 PM [facility] Pulse 77 09/08/2010 6:00 PM [facility] Temperature 36.5 ??C (97.7 ??F) 09/08/2010 6:00 PM CS T Respiratory Rate 20 09/08/2010 6:00 PM [facility] Oxygen Saturation 98% 09/08/2010 6:00 PM [facility] Inhaled Oxygen Concentration - - Weight 78 kg (172 lb) 09/07/2010 1:11 PM [facility] Height 170.2 cm (5' 7 ) 09/07/2010 1:11 PM [facility] Body Mass Index 26.94 09/07/2010 1:11 PM [facility] documented in this encounter Discharge Instructions * Discharge Instructions* Phuong Metz RN - 09/08/2010 5:15 PM [facility] D & C INSTRUCTION SHEET The cervix [...] or come to the Emergency Room at [place] ([phone]) or the nearest Emergency Room. In an emergency, Call 911. [facility] documented in this encounter H&P Notes * [...] All questions were answered. Nathalia Alexander MD [facility] documented in this encounter OR Notes * OR Anesthesia - Stl Scanning, Him - 09/09/2010 2:39 PM [facility] * Louise-OP - Phuong Metz RN - [...] pain/comfort utilizing verbal/nonverbal pain scales; assess culturalor gnosticist indicators attached to pain; administer pain medications as prescribed; utilize non-pharmacologic pain control and comfort measures Expected Outcome: Patient demonstrates and reports adequate pain control Outcome Met: yes [facility] * OR Anesthesia - Harmony Nugent MD [...] complications Harmony Nugent MD 09/08/2010 4:34 PM [facility] * Louise-OP - Isabelle Cabrera RN - 09/08/2010 4:14 PM CST Pt to recovery slot 12 by bed, placed on monitor, VSS. Resp even and unlabored. Peripad placed no drainage noted. Report received from AA. [facility] * Operative Report - Nathalia Alexander MD - 09/08/2010 4:07 PM CST DATE OF SERVICE: 09/08/2010 PREOPERATIVE DIAGNOSIS 1. Missed 2. IUP @ 13w by dates and 9w by size POSTOPERATIVE DIAGNOSIS 1. Missed OPERATION NAME Suction dilation and curettage SURGEON Douglas Jeffrey MD APPLICATION SUPPORT MANAGER Nathalia Alexander MD PGY1 ANESTHESIA General COMPLICATIONS [...] for pathology and cytogenetics Nathalia Alexander MD [facility] * Louise-OP - Melani Dang RN - 09/08/2010 4:06 PM CST Cytogenetics collected. [facility] * OR Anesthesia - Maribel Espino MD - 09/08/2010 2:58 PM CST Pre-Anesthesia Evaluation - Long Form 09/08/2010 2:58 PM Name: Fabiana Dias Age: 35 y.o. Sex: female CSN: [id number] Procedure: Procedure(s): DILATATION AND CURETTAGE SUCTION Surgeons/Assistants: [...] solicited and answered. Yes Maribel Espino MD [facility] documented in this encounter Miscellaneous Notes * Scanned Form - Stl Scanning, [facility] - 09/09/2010 2:39 PM [facility] * Scanned Form - Stl Scanning, [facility] - 09/09/2010 2:39 PM [facility] * Scanned Form - Stl Scanning, [facility] - 09/09/2010 2:39 PM [facility] * Patient Instructions - Stl Scanning, [facility] - 09/09/2010 2:39 PM [facility] * Scanned Form - Stl Scanning, [facility] - 09/09/2010 2:39 PM [facility] * Scanned Form - Stl Scanning, [facility] - 09/09/2010 2:39 PM [facility] documented in this encounter Plan of Treatment Upcoming Encounters Date Type Department Care Team (Late st Contact Info) Description 04/25/2025 8:20 AM CDT Office Visit [facility] Primary Care - [facility] [address] [place] [address] Annalisa Christopher MD [address] [place] [address] documented as of this encounter Procedures Procedure Name Priority Date/Time Associated Diagnosis Comments CHROMOSOME ANALYSIS, TISSUE Routine 09/09/2010 4:29 PM [facility] PATHOLOGY Routine 09/08/2010 5:00 PM [facility] DILATATION AND CURETTAGE SUCTION 09/08/2010 2:50 PM [facility] MISSED AB Case Notes PENDING TYPE AND SCREEN Stat 09/08/2010 2:45 PM [facility] documented in this encounter Results * CHROMOSOME ANALYSIS, TISSUE (09/09/2010 4:29 PM [facility]) CYTOGENETICS INDICATIONS spontaneous [facility] GESTATIONAL AGE ON DATE OF ULTRASOUND ng Weeks [facility] KARYOTYPE NO ANALYSIS POSSIBLE [facility] CHROMOSOME RESULTS No cell growth occurred in tissue culture, and therefore chromosome analysis was not possible. [facility] CYTOGENETICS SPECIMEN POC [facility] METAPHASES COUNTED 0 [facility] METAPHASES ANALYZED 0 [facility] METAPHASES KARYOTYPED 0 [facility] NUMBER OF CULTURES 0 [facility] BANDING TECHNIQUE GTW [facility] BANDING RESOLUTION 0 [facility] CASSANDRA CONSULTANT, REF LAB Fariba Kc, Ph.D. [facility] Comment: Testing performed at [facility] [address] [place] [address] 09/09/2010 4:29 PM [facility] 09/09/2010 4:34 PM [facility] Comment:TISSUE Douglas Jeffrey MD BODY FLUIDS AND STOO LS COM [facility] CLIA# [id number] [address] [facility] [place] [address] * PATHOLOGY (09/08/2010 5:00 PM [facility]) SURGICAL PATHOLOGY ?[facility] ?[address] ? [place], [place] ??[address] ? Patient: ??FABIANA DIAS L ? : ??1975 ? Procedure Date: ??09/08/2010 ? Accession Date: ??09/09/2010 ? Case No: ??[id number] ? Ordering Dr: ??DOUGLAS JEFFREY ? Case type SW is performed by [facility], [address] [place] [address], ? [place], [place] ??[address]; all other case types are performed by [facility] ? [facility], [address], [place], [place] ??[address] ?SURGICAL PATHOLOGY & NON-GYNECOLOGIC CYTOPATHOLOGY REPORT ? [...] are identified. No structures ? are seen. Biology Lecturer sections are submitted in cassettes A1 through A4. ? LWL/TOM 09.09.2010 01:16 pm ? Microscopic: ? The slides are labeled [id number] and Fabiana Dias. ? The specimen consists of an admixture of hemorrhagic and inflamed decidua, ? gestational endometrium, membranes, and immature fibrotic chorionic ? villi. A few tissue fragments consistent with parts are also ? identified. ? GL/DRC 09.13.2010 03:57 pm ? Staging Form: ? No. ? ELECTRONIC SIGNATURE FOR YUMIKO SOLANO M.D.- 09/13/10 09:53 pm [facility] Specimen of unknown material (specimen) 09/08/2010 5:00 PM [facility] Douglas Jeffrey MD PATHOLOGY/CYTOLOGY O RDERABLES [facility] CLIA# [id number] [address] [place] [address] * TYPE AND SCREEN (09/08/2010 2:45 PM [facility]) HISTORY CHECK History Checked [facility] ABO/RH TYPE B Positive [facility] SPECIMEN LIFE 3 days from drawdate [facility] ANTIBODY SCREEN Negative [facility] Blood specimen (specimen) 09/08/2010 2:45 PM [facility] 09/08/2010 3:09 PM [facility] Douglas Jeffrey MD BLOOD BANK ORDERABLE S INTERFACE SYSTEM Refer to clinic/hospital department [facility] CLIA# [id number] [address] [place] [address] documented in this encounter Visit Diagnoses Not on filedocumented in this encounter Administered Medications Inactive Administered Medications - up to 3 most recent administrations Medication Order MAR Action Action Date Dose Rate Site ceFAZolin (ANCEF) IVPB 1,000 mg 1,000 mg, IV, PRE-PROCEDURE ONCE, 1 dose, Starting on Mon09/08/10 at 1441, Until Mon09/08/10 at 1540, Routine Given 09/08/2010 3:40 PM [facility] 1,000 mg ibuprofen (MOTRIN) tablet 600 mg 600 mg, Oral, EVERY 6 HOURS PRN, Starting on Mon09/08/10 at 1607, Until Mon09/08/10 at 2044, Pain, Routine Given 09/08/2010 5:56 PM [facility] 600 mg lactated ringers solution IV, at 150 mL/hr, PRE-PROCEDURE CONTINUOUS, Starting on Mon09/08/10 at 1445, Until Mon09/08/10 at 2044, Routine New Bag 09/08/2010 3:10 PM [facility] 150 mL/hr documented in this encounter Active and Recently Administered Medications Times are shown in [facility]. Scheduled Medication Order 09/06/2010 09/07/2010 09/08/2010 ceFAZolin [...] RN) documented in this encounter Care Teams Iridologist Relationship Specialty Start Date End Date Annalisa Christopher MD [address] [facility] [address] [place] [address] PCP - General 07/07/08 documented as of this encounter
--- OUTSIDE RECORDS SUMMARY | 2024-10-06 18:48 | XMS_ITS | Encounter Summary ---
Author Organization [facility] Address [address] [place] [address] Care Team Providers Care Circus Roustabout Name Role Phone Annalisa Christopher MD Primary Care Provider [phone] Encounter Details Date Type Department Care Team (Late st Contact Info) Description 10/27/2004 Outpatient Historical [facility] FORESTRY INSTRUCTOR - [facility] [address] [facility] [address] [place] [address] Gavin Hadley MD [address] [place] [address] Social History Tobacco Use Types [...] Visit [facility] Primary Care - [facility] [address] [place] [address] Annalisa Christopher MD [address] [place] [address] documented as of this encounter Visit Diagnoses Not on filedocumented in this encounter Care Teams Circus Roustabout Relationship Specialty Start Date End Date Annalisa Christopher MD [address] [place] [address] PCP - General 07/07/08 documented as of this encounter
--- OUTSIDE RECORDS SUMMARY | 2024-10-06 18:48 | XMS_ITS | Encounter Summary ---
Author Organization [facility] Address [address] [place] [address] Care Team Providers Care Fishing Guide Name Role Phone Annalisa Christopher MD Primary Care Provider [phone] Encounter Details Date Type Department Care Team (Late st Contact Info) Description 01/11/2007 Outpatient Historical [facility] Primary Care - [address] [place] [address] Kacey Potter MD NO ADDRESS [...] [facility] Primary Care - [facility][1] [address] [facility] [address] [place] [address] Annalisa Christopher MD [address] [place] [address] [place] [address] documented as of this encounter Visit Diagnoses Not on filedocumented in this encounter Care Teams Fishing Guide Relationship Specialty Start Date End Date Annalisa Christopher MD [address] [place] [address] PCP - General 07/07/08 documented as of this encounter
--- OUTSIDE RECORDS SUMMARY | 2024-10-06 18:48 | XMS_ITS | Encounter Summary ---
Author Organization [facility] Address [address] [place] [address] Care Team Providers Care Wind Up Operator Name Role Phone Annalisa Christopher MD Primary Care Provider [phone] Reason for Visit * Reason Onset Date Comments Erroneous encounter-disregard 07/07/2008 Encounter Details Date Type Department Care Team (Late Contact Info) Description 07/07/2008 Telephone [facility] Primary Care - [address] [address] Kacey Potter MD NO ADDRESS [...] Office Visit [facility] Primary Care - [facility] [address] [place] [address] Annalisa Christopher MD [address] [place] [address] documented as of this encounter Visit Diagnoses Not on filedocumented in this encounter Care Teams Wind Up Operator Relationship Specialty Start Date End Date Annalisa Christohper MD [address] [place] [address] PCP - General 07/07/08 documented as of this encounter
--- OUTSIDE RECORDS SUMMARY | 2024-10-06 18:48 | XMS_ITS | Encounter Summary ---
Author Organization [facility] Address [address] [place] [address] Care Team Providers Care Crusher And Binder Operator Name Role Phone Annalisa Christopher MD Primary Care Provider [phone] Encounter Details Date Type Department Care Team (Late st Contact Info) Description 10/17/2006 Outpatient Historical [facility] RECOVERY ROOM RN - [facility] [address] [facility] [address] [place] [address] Douglas Patricio MD [address] [facility] [address] [facility] [address] Social History Tobacco Use Types Packs/Day Years Used Date Smoking Tobacco: Never Assessed Sex and Gender Information Value Date Recorded Sex Assigned at Not on file Gender Identity Not on file Sexual Orientation Not on file documented as of this encounter Plan of Treatment Upcoming Encounters Date Type Department Care Team (Late st Contact Info) Description 04/25/2025 8:20 AM CDT Office Visit [facility] Primary Care - [facility] [address] [facility] [address] [place] [address] Annalisa Christopher MD [address] [place] [address] [address] [place] [address] documented as of this encounter Visit Diagnoses Not on filedocumented in this encounter Care Teams Crusher And Binder Operator Relationship Specialty Start Date End Date Annalisa Christopher MD [address] [place] [address] [address] [place] [address] PCP - General 07/07/08 documented as of this encounter
--- OUTSIDE RECORDS SUMMARY | 2024-10-06 18:48 | XMS_ITS | Encounter Summary ---
Author Organization [facility] Address [address] [place] [address] Care Team Providers Care Information Specialist Name Role Phone Annalisa Christopher MD Primary Care Provider [phone] Encounter Details Date Type Department Care Team (Late st Contact Info) Description 11/25/2003 Outpatient Historical [facility] PROGRAM/MUSIC DIRECTOR - [facility] [address] [facility] [address] [place] [address] Gavin Hadley MD [address] [place] [address] Social History Tobacco Use Types [...] [facility] Primary Care - [facility] [address] [place] [address] Annalisa Christopher MD [address] [place] [address] documented as of this encounter Visit Diagnoses Not on filedocumented in this encounter Care Teams Information Specialist Relationship Specialty Start Date End Date Annalisa Christopher MD [address] [place] [address] PCP - General 07/07/08 documented as of this encounter
--- OUTSIDE RECORDS SUMMARY | 2024-10-06 18:48 | XMS_ITS | Encounter Summary ---
Author Organization [facility] Address [address] [place] [address] Care Team Providers Care Form Maker Plaster Name Role Phone Annalisa Christopher MD Primary Care Provider [phone] Encounter Details Date Type Department Care Team (Late st Contact Info) Description 07/18/2003 Outpatient Historical [facility] V BELT SKIVER - Medical [address] [address] Joe Meng MD [address] [place] [address] Social History Tobacco Use Types Packs/Day [...] Visit [facility] Primary Care - [facility] [address] [place] [address] [address] [place] [address] Annalisa Christopher MD [address] [place] [address] [address] [place] [address] documented as of this encounter Visit Diagnoses Not on filedocumented in this encounter Care Teams Form Maker Plaster Relationship Specialty Start Date End Date Annalisa Christopher MD [address] [facility] [address] [place] [address] PCP - General 07/07/08 documented as of this encounter
--- OUTSIDE RECORDS SUMMARY | 2024-10-06 18:49 | XMS_ITS | Encounter Summary ---
Author Organization [facility] Address [address] [place] [address] Care Team Providers Care Fish Roe Processor Name Role Phone Annalisa Christopher MD Primary Care Provider [phone] Encounter Details Date Type Department Care Team (Late st Contact Info) Description 04/08/2003 Outpatient Historical [facility] VEHICLE FARE COLLECTOR - [facility][1] [address] [facility] [address] [place] [address] Gavin Hadley MD [address] [place] [address] Social History Tobacco Use Types [...] Primary Care - [facility][1] [address] [place] [address] Annalisa Christopher MD [address] [place] [address] documented as of this encounter Visit Diagnoses Not on filedocumented in this encounter Care Teams Fish Roe Processor Relationship Specialty Start Date End Date Annalisa Christopher MD [address] [place] [address] PCP - General 07/07/08 documented as of this encounter
--- OUTSIDE RECORDS SUMMARY | 2024-10-06 18:49 | XMS_ITS | Encounter Summary ---
Author Organization [facility] Address [address] [place] [address] Care Team Providers Care Continuous Washer Operator Name Role Phone Annalisa Christopher MD Primary Care Provider [phone] Encounter Details Date Type Department Care Team (Latest Contact Info) Description 05/29/2001 Inpatient Historical [facility] PAT[facility] IN A BED Junior Cook MD [address] [place] [address] Intrauterine affecting management of mother, delivered [...] Visit [facility] Primary Care - [facility] [address] [facility] [address] [place] [address] Annalisa Christopher MD [address] [facility] [address] [place] [address] documented as of this encounter Visit Diagnoses Diagnosis Intrauterine affecting management of mother, delivered- Primary documented in this encounter Care Teams Continuous Washer Operator Relationship Specialty Start Date End Date Annalias Christopher MD [address] [facility] [address] [place] [address] PCP - General 07/07/08 documented as of this encounter
== END 2024-09-30 18:37 | disposition home or self-care (01) ==
PROVIDERS: Physician Assistant; Emergency Provider Student in an Organized Health Care Education/Training Program
DX: K52.9 Noninfective gastroenteritis and colitis, unspecified (principal); K59.39 Other megacolon; K44.9 Diaphragmatic hernia without obstruction or gangrene; K76.89 Other specified diseases of liver; D58.2 Other hemoglobinopathies; D72.829 Elevated white blood cell count, unspecified; R82.71 Bacteriuria; R94.6 Abnormal results of thyroid function studies; J45.909 Unspecified asthma, uncomplicated; F41.9 Anxiety disorder, unspecified; F32.A Depression, unspecified; Z87.442 Personal history of urinary calculi; Z87.891 Personal history of nicotine dependence; N20.0 Calculus of kidney; R94.31 Abnormal electrocardiogram [ECG] [EKG]; R00.0 Tachycardia, unspecified; I51.7 Cardiomegaly
CPT/HCPCS: 36415; 74177; 76705; 80053; 81001; 81025; 83690; 83735; 84439; 84443; 84480; 85025; 87086; 93005; 96360; 99284; A9270; J7030; Q9967

== ENCOUNTER 2024-10-16 16:04 | Outpatient (CLI) | payer BC, SELFPAY ==
--- NOTE | ~2024-10-16 | XR_ITS ---
Exam: Abdomen 2V HISTORY: R19.7 - Diarrhea, unspecified. STOMACH PAIN X 1 MONTH COMPARISON: CT examination dated 09/30/2024 TECHNIQUE: Upright images of the abdomen and pelvis. FINDINGS: Fecal stasis within a dilated loop of bowel in the pelvis. This focus of fecal stasis likely corresponds to the dilated cecum, seen on previous CT examination f or which direct visualization is recommended. There is no free air or deep sulci. 6 mm calcification projecting over the lower pole of the left kidney. Lung bases are unremarkable. Intrauterine device is noted. Bones and soft tissues are unremarkable. IMPRESSION: Findings within the pelvis for which direct visualization (preferably with colonoscopy) is recommende d. Reviewed, dictated and finalized at location A. KEEPING CLERKS SUPERVISOR IMPRESSION: Findings within the pelvis for which direct visualization (preferably with colo noscopy) is recommended.
--- OUTSIDE RECORDS SUMMARY | 2024-10-18 03:11 | XMS_ITS | Encounter Summary ---
Author Organization [facility] Address [address] [place] [address] Care Team Providers Care Fiber Technician Name Role Phone Annalisa Christopher MD Primary Care Provider [phone] Encounter Details Date Type Department Care Team (Late st Contact Info) Description 08/25/2005 Outpatient Historical [facility] DESK INTERVIEWER - [facility] [address] [facility] [address] [place] [address] Douglas Patricio MD [address] [facility] [address] [place] [address] Social History Tobacco Use Types Packs/Day Years Used Date Smoking Tobacco: Never Assessed Comments Unknown Sex and Gender Information Value Date Recorded Sex Assigned at Not on file Legal Sex Female 3:07 AM LAY OUT CARPENTER Gender Identity Not on file Sexual Orientation Not on file documented as of this encounter Plan of Treatment Upcoming Encounters Date Type Department Care Team (Late st Contact Info) Description 04/25/2025 8:20 AM CDT Office Visit [facility] Primary Care - [facility] [address] [facility] [address] [place] [address] Annalisa Christopher MD [address] [place] [address] [address] [place] [address] documented as of this encounter Visit Diagnoses Not on filedocumented in this encounter Care Teams Fiber Technician Relationship Specialty Start Date End Date Annalisa Christopher MD [address] [facility] [address] [place] [address] PCP - General 07/07/08 documented as of this encounter
--- OUTSIDE RECORDS SUMMARY | 2024-10-18 03:11 | XMS_ITS | Clinical Summary ---
Author Organization [facility] Address [address] [facility] [facility] [place] [address] Care Team Providers Care Trench Digging Machine Operator Name Role Phone Leah Santo MD Primary Care Provider Unavaila ble Source Comments [facility],non-owned Affiliates and Associated Physician Practices is amultiple site organization consisting of ambulatory clinics and hospital sitesin [place], [place], [place] and [place]. This disclosure is being madepursuant to the Care Everywhere program and may not contain all information available regarding this patient. Last updated 18.[facility] Allergies Active Allergy Reactions Criticality Noted Date [...] of 3 - 19+ 3-dose series) 1994 COVID-19 VACCINE (1 - 2023-2 5 season) 2024 INFLUENZA VACCINE (#1) 2024 DEPRESSION SCREENING 09/25/2024 ZOSTER VACCINE (1 of 2) 2025 HIB VACCINE Aged Out No longer eligi ble based on patient's age to complete this topic HPV VACCINE Aged Out No longer eligi ble based on patient's age to complete this topic MENINGOCOCCAL (Group B) VACCINE Aged Out No longer eligible based on patient's age to complete this topic MENINGOCOCCAL VACCINE Aged Out No melisa jimmie eligible based on patient's age to complete this topic PNEUMOCOCCAL VACCINE Aged Out No long er eligible based on patient's age to complete this topic Care Teams Trench Digging Machine Operator Relationship Specialty Start Date End Date Leah Santo MD PCP - General Internal Medicine 05/23/17
--- OUTSIDE RECORDS SUMMARY | 2024-10-18 03:11 | XMS_ITS | Encounter Summary ---
Author Organization [facility] Address [address] [place] [address] Care Team Providers Care Qa Analyst Name Role Phone Annalisa Christopher MD Primary Care Provider [phone] Encounter Details Date Type Department Care Team (Late st Contact Info) Description 12/27/2007 Outpatient Historical [facility] [address] [place] [address] Annalisa Christopher MD [address] [place] [address] [address] [place] [address] Social History Tobacco Use Types Packs/Day Years Used Date Smoking Tobacco: Never Assessed Comments Unknown Sex and Gender Information Value Date Recorded Sex Assigned at Not on file Legal Sex Female 3:07 AM FINISH MILL OPERATOR Gender Identity Not on file Sexual Orientation Not on file documented as of this encounter Plan of Treatment Upcoming Encounters Date Type Department Care Team (Late st Contact Info) Description 04/25/2025 8:20 AM CDT Office Visit [facility] [address] [place] [address] Annalisa Christopher MD [address] [place] [address] [address] [place] [address] documented as of this encounter Visit Diagnoses Not on filedocumented in this encounter Care Teams Qa Analyst Relationship Specialty Start Date End Date Annalisa Christopher MD [address] [place] [address] PCP - General 07/07/08 documented as of this encounter
--- OUTSIDE RECORDS SUMMARY | 2024-10-18 03:11 | XMS_ITS | Encounter Summary ---
Author Organization [facility] Address [address] [place] [address] Care Team Providers Care Yeast Distiller Name Role Phone Annalisa Christopher MD Primary Care Provider [phone] Encounter Details Date Type Department Care Team (Late st Contact Info) Description 08/24/2007 Outpatient Historical [facility] Care - [place] [address] [place] [address] Hasmukh Lucas MD [address] [place] [address] Social History Tobacco Use Types Packs/Day Years Used Date Smoking Tobacco: Never Assessed Comments Unknown Sex and Gender Information Value Date Recorded Sex Assigned at Not on file Legal Sex Female 3:07 AM CHECKING DEPARTMENT SUPERVISOR Gender Identity Not on file Sexual Orientation Not on file documented as of this encounter Plan of Treatment Upcoming Encounters Date Type Department Care Team (Late st Contact Info) Description 04/25/2025 8:20 AM CDT Office Visit [facility] [address] [place] [address] Annalisa Christopher MD [facility] [address] [place] [address] documented as of this encounter Visit Diagnoses Not on filedocumented in this encounter Care Teams Yeast Distiller Relationship Specialty Start Date End Date Annalisa Christopher MD [address] [facility] [address] [place] [address] PCP - General 07/07/08 documented as of this encounter
--- OUTSIDE RECORDS SUMMARY | 2024-10-18 03:11 | XMS_ITS | Encounter Summary ---
Author Organization [facility] Address [address] [place] [address] Care Team Providers Care Transmitter Supervisor Name Role Phone Annalisa Christopher MD Primary Care Provider [phone] Encounter Details Date Type Department Care Team (Late st Contact Info) Description 10/17/2006 Outpatient Historical [facility] OPERATIONS STAFF SPECIALIST SECURITY - [facility] [address] [facility] [address] [facility] [address] [place] [address] Douglas Patricio MD [address] [facility] [address] [place] [address] Social History Tobacco Use Types Packs/Day Years Used Date Smoking Tobacco: Never Assessed Comments Unknown Sex and Gender Information Value Date Recorded Sex Assigned at Not on file Legal Sex Female 3: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 HOME ENERGY CONSULTANT Gender Identity Not on file Sexual Orientation Not on file documented as of this encounter Plan of Treatment Upcoming Encounters Date Type Department Care Team (Late st Contact Info) Description 04/25/2025 8:20 AM CDT Office Visit [facility] Primary Care - [facility] [address] [facility] [address] [place] [address] Annalisa Christopher MD [address] [place] [address] [address] [place] [address] documented as of this encounter Visit Diagnoses Not on filedocumented in this encounter Care Teams Transmitter Supervisor Relationship Specialty Start Date End Date Annalisa Christopher MD [address] [facility] [address] [place] [address] PCP - General 07/07/08 documented as of this encounter
--- OUTSIDE RECORDS SUMMARY | 2024-10-18 03:11 | XMS_ITS | Encounter Summary ---
Author Organization [facility] Address [address] [place] [address] Care Team Providers Care Employee Communications Intern Name Role Phone Annalisa Christopher MD Primary Care Provider [phone] Encounter Details Date Type Department Care Team (Late st Contact Info) Description 12/27/2007 Outpatient Historical [facility] [address] [place] [address] Annalisa Christopher MD [address] [place] [address] [address] [place] [address] Social History Tobacco Use Types Packs/Day Years Used Date Smoking Tobacco: Never Assessed Comments Unknown Sex and Gender Information Value Date Recorded Sex Assigned at Not on file Legal Sex Female 3:07 AM RADIO OFFICER Gender Identity Not on file Sexual Orientation Not on file documented as of this encounter Plan of Treatment Upcoming Encounters Date Type Department Care Team (Late st Contact Info) Description 04/25/2025 8:20 AM CDT Office Visit [facility] [address] [place] [address] Annalisa Christopher MD [address] [place] [address] [address] [place] [address] documented as of this encounter Visit Diagnoses Not on filedocumented in this encounter Care Teams Employee Communications Intern Relationship Specialty Start Date End Date Annalisa Christopher MD [address] [facility] [address] [place] [address] PCP - General 07/07/08 documented as of this encounter
--- OUTSIDE RECORDS SUMMARY | 2024-10-18 03:11 | XMS_ITS | Encounter Summary ---
Author Organization [facility] Address [address] [place] [address] Care Team Providers Care Debt And Budget Counselor Name Role Phone Annalisa Christopher MD Primary Care Provider [phone] Encounter Details Date Type Department Care Team [...] on file Legal Sex Female 3:07 AM BUS ATTENDANT Gender Identity Not on file Sexual Orientation Not on file documented as of this encounter Plan of Treatment Upcoming Encounters Date Type Department Care Team (Late st Contact Info) Description 04/25/2025 8:20 AM CDT Office Visit [facility] Primary Care - [facility] [address] [facility] [address] [place] [address] Annalisa Christopher MD [address] [place] [address] [place] [address] documented as of this encounter Visit Diagnoses Diagnosis Abdominal pain, unspecified site- Primary documented in this encounter Care Teams Debt And Budget Counselor Relationship Specialty Start Date End Date Annalisa Christopher MD [address] [facility] [address] [place] [address] PCP - General 07/07/08 documented as of this encounter
--- OUTSIDE RECORDS SUMMARY | 2024-10-18 03:11 | XMS_ITS | Encounter Summary ---
Author Organization [facility] Address [address] [place] [address] Care Team Providers Care Utility Specialist Name Role Phone Ananlisa Christopher MD Primary Care Provider [phone] Encounter Details Date Type Department Care Team (Late st Contact Info) Description 12/29/2005 Outpatient Historical [facility] ANGIOGRAPHY NURSE - [facility] [address] [facility] [address] [place] [address] Douglas Patricio MD [address] [facility] [address] [place] [address] Social History Tobacco Use Types Packs/Day Years Used Date Smoking Tobacco: Never Assessed Comments Unknown Sex and Gender Information Value Date Recorded Sex Assigned at Not on file Legal Sex Female 3:07 AM BEHAVIORAL PEDIATRICIAN Gender Identity Not on file Sexual Orientation Not on file documented as of this encounter Plan of Treatment Upcoming Encounters Date Type Department Care Team (Late st Contact Info) Description 04/25/2025 8:20 AM CDT Office Visit [facility] Primary Care - [facility] [address] [facility] [address] [place] [address] Annalisa Christopher MD [address] [place] [address] [address] [place] [address] documented as of this encounter Visit Diagnoses Not on filedocumented in this encounter Care Teams Utility Specialist Relationship Specialty Start Date End Date Annalisa Christopher MD [address] [facility] [address] [place] [address] PCP - General 07/07/08 documented as of this encounter
--- OUTSIDE RECORDS SUMMARY | 2024-10-18 03:11 | XMS_ITS | Encounter Summary ---
Author Organization [facility] Address [address] [place] [address] Care Team Providers Care Director Medical Name Role Phone Annalisa Christopher MD Primary Care Provider [phone] Encounter Details Date Type Department Care Team (Late st Contact Info) Description 06/24/2005 Outpatient Historical [facility] Care - [address] [place] [address] Kacey Potter MD NO ADDRESS ON FILE Social History Tobacco Use Types Packs/Day Years Used Date Smoking Tobacco: Never Assessed Comments Unknown Sex and Gender Information Value Date Recorded Sex Assigned at Not on file Legal Sex Female 3:07 AM RN PLASTICS Gender Identity Not on file Sexual Orientation Not on file documented as of this encounter Plan of Treatment Upcoming Encounters Date Type Department Care Team (Late st Contact Info) Description 04/25/2025 8:20 AM CDT Office Visit [facility] [address] [place] [address] [place] [address] Annalisa Christopher MD [facility] [address] [place] [address] documented as of this encounter Visit Diagnoses Not on filedocumented in this encounter Care Teams Director Medical Relationship Specialty Start Date End Date Annalisa Christopher MD [address] [place] [address] [place] [address] PCP - General 07/07/08 documented as of this encounter
--- OUTSIDE RECORDS SUMMARY | 2024-10-18 03:11 | XMS_ITS | Clinical Summary ---
Author Organization [facility] Address [address] [place] [address] Care Team Providers Care Warehouse Receiver Name Role Phone Annalisa Christopher MD Primary Care Provider [phone] Allergies Active Allergy Reactions Criticality Noted Date Comments Sulfa (Sulfonamide Antibiotics) Hives High 11/2007 Medications levonorgestreL (MIRENA) 20 mcg/24 hours (7 yrs) 52 mg IUD by Intrauterine route. Active diazePAM (VALIUM) 5 mg tabletIndication s:PTSD (post-traumatic stress disorder) Take 1 Tablet (5 mg) by mouth 1 time daily as needed for Anxiety. 20 Tablet 0 6 Active cetirizine-pseud oephedrine sr 12 hour (ZyrTEC-D) 5-120 mg tabletIndication s:Allergic rhinitis due to pollen, unspecified rhinitis seasonality Take 1 Tablet by mouth 2 times daily. 60 Tablet 3 7 Active fluticasone (FLONASE) 50 mcg/spray Jack, Suspension Administer 2 Sprays in each nostril daily. Active Peak Flow Meter DeviceIndication s:Mild intermittent asthma without complication Dx asthma. 1 Device 9 Active tamsulosin (FLOMAX) 0.4 mg capsuleIndicatio ns:Nephrolithias is TAKE 1 CAPSULE BY MOUTH EVERY DAY 30 Capsule 1 Active Additional Information Patient not taking.Reported on 04/22/2024 albuterol sulfate 90 mcg/Actuation inhalerIndicatio ns:Mild intermittent asthma without complication TAKE 2 PUFFS EVERY 6 HOURS NEEDED FOR SHORTNESS OF BREATH. 8.5 Gram 11 2 Active promethazine (PHENERGAN) 25 mg tabletIndication s:Migraine without status migrainosus, not intractable, unspecified migraine type TAKE 1 TABLET BY MOUTH EVERY 6 HOURS NEEDED FOR NAUSEA/EMESIS. 30 Tablet 3 Active propranoloL (INDERAL) 20 mg tabletIndication s:Benign essential tremor Take 1 Tablet (20 mg) by mouth 3 times daily. 90 Tablet 11 4 Active escitalopram oxalate (LEXAPRO) 10 mg tabletIndication s:PTSD (post-traumatic stress disorder) TAKE 1 TABLET BY MOUTH EVERY DAY 100 Tablet 3 4 Active fluticasone furoate-vilanter oL (BREO ELLIPTA) 100-25 mcg/dose Disk with DeviceIndication s:Mild intermittent asthma without complication INHALE 1 PUFF BY MOUTH EVERY DAY 60 Each 2 4 Active Active Problems Problem Noted Date Diagnosed [...] Encounters Date Type Department Care Team Description 10/15/2024 External Device Data STL ABSTRACTION Provider, Abstract 10/09/2024 External Device Data STL ABSTRACTION Provider, Abstract 10/01/2024 External Device Data STL ABSTRACTION Provider, Abstract 09/17/2024 Telephone [facility] [address] [place] [address] Annalisa Christopher MD Clinical Consult Before Scheduling 08/02/2024 Refill [facility] [address] [place] [address] Annalisa Christopher MD Mild intermittent asthma without complication 07/29/2024 External Device Data STL ABSTRACTION Provider, Abstract 07/18/2024 9:40 AM CDT Office Visit [facility] [address] [place] [address] Annalisa Christopher MD Acute non-recurrent maxillary sinusitis (Primary Dx) 07/18/2024 Telephone [facility] [address] [place] [address] Annalisa Christopher MD Clinical Consult Before Scheduling from Last 3 Months Immunizations Immunization Administration Dates Next Due (ADACEL/BOOSTRIX)(10 YR UP) TDAP VACCINE, 0.5ML, IM 04/19/2023,09/03/2011 (COMIRNATY)(12 YR UP) COVID- 19 VACCINE, MRNA, SPIKE PROTEIN, LNP, MIRELA(PF) 30 MCG/0.3 ML IM SUSP 06/28/2024 (MAGNUS) COVID-19 VACCINE - EMERGENCY USE AUTHORIZATION, AD26,COV2S(PF) 0.5 ML IM SUSP 06/18/2021 (PREVNAR 20)(6 WKS UP) PNEUM OCOCCAL CONJUGATE VACCINE 20-VALENT (PCV20), POLYSACCHARIDE [id number] CONJUGATE, ADJUVANT 0.5 ML (PF) IM 04/29/2022 [...] Healthy Daughter 1 Jeanette Heart Disease Father MD 60's Hypertension Father Stroke Father Diabetes Mother [...] = 0.6 oz pur e alcohol) Socially Comments No Sex and Gender Information Value Date Recorded Sex Assigned at Not on file 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 Primary Care - [facility] [address] [place] [address] Annalisa Christopher MD [address] [place] [address] Health Maintenance Due Date Last [...] 2:42 PM CDT) COLOGUARD RESULT Negative Negative Bring Light Comment: NEGATIVE TEST RESULT. A negative Cologuard [...] (Diane Panchal al, N Engl J Med 2014;370(14):0686-7569) The normal value (reference range) for this assay is negative. COLOGUARD RE-SCREENING RECOMMENDATION: Periodic colorectal cancer screening is an important part of preventive healthcare for asymptomatic individuals at average risk for colorectal cancer. ??Following a negative Cologuard result, the [place] [employer] Society and U.S. Multi-Society Task Force screening guidelines recommend a Cologuard re-screening interval of 3 years. References: [place] [employer] Guideline for Colorectal Cancer Screening: https://www.cancer.org/cancer/mgjng-hjykhe-tpgixg/qlthvodge-tyhpmwqfm-kwfrdni/ac s-rec ommendations.html.; Compa DK, Santos CR, Cass PORTER, Colorectal Cancer Screening: Recommendations for Physicians and Patients from the U.S. Multi-Society Task Force on Colorectal Cancer Screening , Am J Gastroenterology 2017; 112:3615-7626. TEST DESCRIPTION: Composite algorithmic analysis of stool [...] with both Cologuard and colonoscopy. (Diane Rodriguez. et al, N Engl J Med 2014;370(14):5282-8943.) Cologuard may produce a false negative or false positive result (no colorectal cancer or precancerous polyp present at colonoscopy follow up). A negative Cologuard test result does not guarantee the absence of CRC or advanced adenoma (pre-cancer). The current Cologuard screening interval is every 3 years. ([place] [employer] Society and U.S. Multi-Society Task Force). Cologuard performance data in a 10,000 patient pivotal study using colonoscopy as the reference method can be accessed at the following location: www.Apptimate.com/results. Additional description of the Cologuard test process, warnings and precautions can be found at www.AwesomePieceogStipplerd.com. Stool STOOL SPECIMEN / Unknown 04/26/2024 2:42 PM CDT 04/27/2024 11:24 AM CDT us Pearl Sanjana Vernon JOB PRINTER BODY FLUIDS AND STOOLS Vandana taylor Result [facility] CLIA # [id number] [address] , [address] [place] [address] * (ABNORMAL) HEMOGLOBIN A1C (04/24/2024 7:16 AM CDT) HEMOGLOBIN A1C 5.7(H) <5.7 % of total Hgb [facility] Comment: For someone without known diabetes, [...] children. ESTIMATED AVERAGE GLUCOSE (MG/DL) 117 mg/dL [facility] ESTIMATED AVERAGE GLUCOSE (MMOL/L) 6.5 mmol/L [facility] Comment: ? This test was performed on the Cadence halley c503 platform. Effective 12/11/23, a change in test platforms from the Baker Ocular Care Aide to the Cadence halley c503 may have shifted HbA1c results compared to historical results. Based on laboratory validation testing conducted at [facility], the Cadence platform relative to the Baker [...] recommended. FASTING:YES FASTING: YES Test Performed at: [facility] [address] [place], [place] ??[address] Albin Mulligan Blood 04/24/2024 7:16 AM CDT 04/24/2024 7:17 AM CDT Pearl Junior JOB PRINTER CHEMISTRY ORDERABLES Final Result [facility] [phone] [facility] [address] [place] [address] * MAMMO SCREENING BILAT (02/22/2022) Anatomical Region Laterality Modality Breast Bilateral Other us Abstract Provider MAMMO ORDERABLES Edited Result - Final * CERV/VAG CYTOPATH, SUREPATH W/RFLX HPV (02/01/2011 10:43 AM CDT) CLINICAL INFORMATION [facility] PREV PAP: 10 22 10 WNL [facility] LAST MENSTRUAL PERIOD 12 13 11 [facility] PAP INTERP Negative for intraepithelial lesion or malignancy. [facility] Greens Keeper Pap Comment Based on the cytology result, reflex High Risk HPV DNA testing was not performed. [facility] ADEQUACY: Satisfactory for evaluation. Endocervical/trans formation zone component present. [facility] SOURCE [facility] CYTOTECHNOLOGI ST: MMW, CT(ASCP) [facility] Comment: ? Lab test performed by: [facility] [address] [place] [address] NELSON FRENCH DO PREV BX: Information not provided [facility] REPORT STATUS FINAL [facility] Endocervical 02/01/2011 10:4 3 AM CDT 02/01/2011 2:10 PM CDT Comment:ENDOCERVICAL us Douglas Patricio MD PATHOLOGY/CYTOLOGY ORDERABLE S Final Result [facility] CLIA# [id number] [address] [place] [address] from Last 3 Months or Most Recently Relevant to Health Maintenance Insurance [employer] BLUE ACCESS/TRUE BLUE PPO Advance Directives For more information, please contact: [phone] * Full Code (Latest Code Status on File) Date Activated Date Inactivated Comments 08/31/2011 3:42 PM 09/04/2011 8:53 PM * Full Code Date Activated Date Inactivated Comments 08/30/2011 5:46 PM 08/31/2011 3:42 PM * Full Code Date Activated Date Inactivated Comments 09/08/2010 4:07 PM 09/08/2010 8:44 PM * Full Code Date Activated Date Inactivated Comments 09/08/2010 2:41 PM 09/08/2010 4:07 PM Care Teams Warehouse Receiver Relationship Specialty Start Date End Date Annalisa Christopher MD [address] [facility] [address] [place] [address] PCP - General 07/07/08
--- OUTSIDE RECORDS SUMMARY | 2024-10-18 03:11 | XMS_ITS | Encounter Summary ---
Author Organization [facility] Address 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 Gender Identity Not on file Sexual Orientation Not on file documented as of this encounter Plan of Treatment Upcoming Encounters Date Type Department Care Team (Late st Contact Info) Description 04/25/2025 8:20 AM CDT Office Visit [facility] [address] [place] [address] [place] [address] Annalisa Christopher MD [facility] [address] [place] [address] documented as of this encounter Visit Diagnoses Not on filedocumented in this encounter Care Teams Manufacturing Industrial Engineer Relationship Specialty Start Date End Date Annalisa Christopher MD [address] [place] [address] [place] [address] PCP - General 07/07/08 documented as of this encounter
--- OUTSIDE RECORDS SUMMARY | 2024-10-18 03:11 | XMS_ITS | Encounter Summary ---
Author Organization [facility] Address 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 Gender Identity Not on file Sexual Orientation Not on file documented as of this encounter Plan of Treatment Upcoming Encounters Date Type Department Care Team (Late st Contact Info) Description 04/25/2025 8:20 AM CDT Office Visit [facility] [address] [place] [address] [place] [address] Annalisa Christopher MD [facility] [address] [place] [address] documented as of this encounter Visit Diagnoses Not on filedocumented in this encounter Care Teams Signal Maintainer Relationship Specialty Start Date End Date Annalisa Christopher MD [address] [place] [address] [place] [address] PCP - General 07/07/08 documented as of this encounter
--- OUTSIDE RECORDS SUMMARY | 2024-10-18 03:11 | XMS_ITS | Encounter Summary ---
Author Organization [facility] Address 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 Gender Identity Not on file Sexual Orientation Not on file documented as of this encounter Plan of Treatment Upcoming Encounters Date Type Department Care Team (Late st Contact Info) Description 04/25/2025 8:20 AM CDT Office Visit [facility] Primary Care - [facility] [address] [facility] [address] [place] [address] Annalisa Christopher MD [address] [place] [address] [address] [place] [address] documented as of this encounter Visit Diagnoses Diagnosis Abdominal pain, unspecified site- Primary documented in this encounter Care Teams Health Care Law Specialist Relationship Specialty Start Date End Date Annalisa Christopher MD [address] [facility] [address] [place] [address] PCP - General 07/07/08 documented as of this encounter
--- OUTSIDE RECORDS SUMMARY | 2024-10-18 03:11 | XMS_ITS | Encounter Summary ---
Author Organization [facility] Address [address] [place] [address] Care Team Providers Care Inspector Outside Steam Distribution Name Role Phone Annalisa Christopher MD Primary Care Provider [phone] Encounter Details Date Type Department Care Team (Late st Contact Info) Description 07/14/2006 Outpatient Historical [facility] Care - [address] [place] [address] Kacey Potter MD NO ADDRESS ON FILE Social History Tobacco Use Types Packs/Day Years Used Date Smoking Tobacco: Never Assessed Comments Unknown Sex and Gender Information Value Date Recorded Sex Assigned at Not on file Legal Sex Female 3:07 AM LEGAL ANALYST Gender Identity Not on file Sexual Orientation Not on file documented as of this encounter Plan of Treatment Upcoming Encounters Date Type Department Care Team (Late st Contact Info) Description 04/25/2025 8:20 AM CDT [facility] [address] [place] [address] [place] [address] Annalisa Christopher MD [facility] [address] [place] [address] documented as of this encounter Visit Diagnoses Not on filedocumented in this encounter Care Teams Inspector Outside Steam Distribution Relationship Specialty Start Date End Date Annalisa Christopher MD [address] [place] [address] [place] [address] PCP - General 07/07/08 documented as of this encounter
--- OUTSIDE RECORDS SUMMARY | 2024-10-18 03:11 | XMS_ITS | Referral Summary ---
Author Organization [facility] Address [address] [place] [address] Care Team Providers Care Strike Plate Attacher Name Role Phone Leah Santo MD Primary Care Provider Unavaila ble Source Comments [facility],non-owned Affiliates and Associated Physician Practices is amultiple site organization consisting of ambulatory clinics and hospital sitesin [place], [place], [place] and [place]. This disclosure is being madepursuant to the Care Everywhere program and may not contain all information available regarding this patient. Last updated 18.[employer] Allergies Active Allergy Reactions Criticality Noted Date Comments Sulfa Drugs 05/23/2017 Social History Tobacco Use Types Packs/Day Years Used Date Smoking Tobacco: Never Assessed Sex and Gender Information Value Date Recorded Sex Assigned at Not on file Gender Identity Not on file Sexual Orientation Not on file Plan of Treatment Not on file Administered Medications Care Teams Strike Plate Attacher Relationship Specialty Start Date End Date Leah Santo MD PCP - General Internal Medicine 05/23/17
--- OUTSIDE RECORDS SUMMARY | 2024-10-18 03:11 | XMS_ITS | Encounter Summary ---
Author Organization [facility] Address [address] [place] [address] Care Team Providers Care Electric Range Preparer Name Role Phone Annalisa Christopher MD Primary Care Provider [phone] Encounter Details Date Type Department Care Team (Late st Contact Info) Description 12/27/2007 Orders Only [facility] Primary Care - [facility] [address] [place] [address] [address] [place] [address] Annalisa Christopher MD [address] [place] [address] [address] [place] [address] Social History Tobacco Use Types Packs/Day Years Used Date Smoking Tobacco: Never Assessed Comments Unknown Sex and Gender Information Value Date Recorded Sex Assigned at Not on file Legal Sex Female 3:07 AM MEDICATION TECHNICIAN Gender Identity Not on file Sexual Orientation [...] for 10 to 15 years. 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 [...] 280.0-IRON DEFICIENCY [facility] LAB ORDERS: Order number: [id number] Test Ordered: CBC W/ DIFFERENTIAL 3[address] HEALTH [...] Visit [facility] Primary Care - [facility] [address] [facility] [address] [place] [address] Annalisa Christopher MD [address] [facility] [address] [place] [address] documented as of this encounter Visit Diagnoses Not on filedocumented in this encounter Care Teams Electric Range Preparer Relationship Specialty Start Date End Date Annalisa Christopher MD [address] [facility] [address] [place] [address] PCP - General 07/07/08 documented as of this encounter
--- OUTSIDE RECORDS SUMMARY | 2024-10-18 03:11 | XMS_ITS | Encounter Summary ---
Author Organization [facility] Address [address] [place] [address] Care Team Providers Care Engineering Surveyor Name Role Phone Annalisa Christopher MD Primary Care Provider [phone] Encounter Details Date Type Department Care Team (Late st Contact Info) Description 10/16/2007 Outpatient Historical [facility] FACILITIES MANAGEMENT EXECUTIVE - [facility] [address] [facility] [address] [place] [address] Douglas Patricio MD [address] [facility] [address] [place] [address] Social History Tobacco Use Types Packs/Day Years Used Date Smoking Tobacco: Never Assessed Comments Unknown Sex and Gender Information Value Date Recorded Sex Assigned at Not on file 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 Gender Identity Not on file Sexual Orientation Not on file documented as of this encounter Plan of Treatment Upcoming Encounters Date Type Department Care Team (Late st Contact Info) Description 04/25/2025 8:20 AM CDT Office Visit [facility] Primary Care - [facility] [address] [facility] [address] [place] [address] Annalisa Christopher MD [address] [place] [address] [address] [place] [address] documented as of this encounter Visit Diagnoses Not on filedocumented in this encounter Care Teams Engineering Surveyor Relationship Specialty Start Date End Date Annalisa Christopher MD [address] [facility] [address] [place] [address] PCP - General 07/07/08 documented as of this encounter
--- OUTSIDE RECORDS SUMMARY | 2024-10-18 03:11 | XMS_ITS | Encounter Summary ---
Author Organization [facility] Address [address] [place] [address] Care Team Providers Care Classroom Assistant Name Role Phone Annalisa Christopher MD Primary Care Provider [phone] Encounter Details Date Type Department Care Team (Latest Contact Info) Description 12/27/2007 Outpatient Historical [address] [place] [address] Annalisa Christopher MD [address] [place] [address] [address] [place] [address] Iron Deficiency Anemia Secondary to Blood Loss (Chronic) Social History Tobacco Use Types Packs/Day Years Used Date Smoking Tobacco: Never Assessed Comments Unknown Sex and Gender Information Value Date Recorded Sex Assigned at Not on file 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 Gender Identity Not on file Sexual Orientation Not on file documented as of this encounter Plan of Treatment Upcoming Encounters Date Type Department Care Team (Late st Contact Info) Description 04/25/2025 8:20 AM CDT [facility] [address] [place] [address] [address] [place] [address] Annalisa Christopher MD [address] [place] [address] [address] [place] [address] documented as of this encounter Procedures Procedure Name Priority Date/Time Associated Diagnosis Comments CBC WITH DIFFERENTIAL Routine 12/27/2007 1:34 PM CDT documented in this encounter Results * CBC WITH DIFFERENTIAL (12/27/2007 1:34 PM CDT) WBC 6.8 4.0 - 9.8 K/uL [facility] MCH 30.1 27.2 - 32.6 pg [facility] MPV 11.1 9.3 - 12.4 fL [facility] HEMATOCRIT 40.0 35.5 - 44.0 % [facility] RDW-STDEV 44.4 37.1 - 48.7 fL [facility] RBC 4.38 3.90 - 4.90 M/uL [facility] MCHC 33.0 31.5 - 35.5 % [facility] MCV 91.3 82.0 - 99.0 fL [facility] PLATELETS 222 140 - 350 K/uL [facility] HEMOGLOBIN 13.2 11.8 - 14.8 g/dL [facility] RDW 13.3 11.5 - 14.5 % [facility] BASOPHILS 0 0 - 2 % [facility] BASOPHILS ABSOLUTE 0.02 0.00 - 0.20 K/uL [facility] MONOCYTES 9 3 - 13 % [facility] MONOCYTE ABSOLUTE 0.64 0.10 - 1.30 K/uL [facility] NEUTROPHILS 61 45 - 70 % [facility] NEUTROPHIL ABSOLUTE 4.16 1.90 - 7.00 K/uL [facility] EOSINOPHILS 1 0 - 7 % [facility] EOSINOPHIL ABSOLUTE 0.07 0.00 - 0.70 K/uL [facility] LYMPHOCYTES 29 16 - 45 % [facility] LYMPHOCYTE ABSOLUTE 1.95 0.70 - 4.50 K/uL [facility] Blood specimen (specimen) 12/27/2007 1:34 PM CDT 12/27/2007 5:05 PM CDT Annalisa Christopher MD HEMATOLOGY ORDERABLES Edited [facility] [address] [place] [address] documented in this encounter Visit Diagnoses Diagnosis Iron deficiency anemia secondary to blood loss (chronic) documented in this encounter Care Teams Classroom Assistant Relationship Specialty Start Date End Date Annalisa Christopher MD [address] [place] [address] PCP - General 07/07/08 documented as of this encounter
--- OUTSIDE RECORDS SUMMARY | 2024-10-18 03:11 | XMS_ITS | Encounter Summary ---
Author Organization [facility] Address [address] [place] [address] Care Team Providers Care Entry Level Marketing Representative Name Role Phone Annalisa Christopher MD Primary Care Provider [phone] Encounter Details Date Type Department Care Team (Late st Contact Info) Description 01/11/2007 Outpatient Historical [facility] Care - [address] [place] [address] Kacey Potter MD NO ADDRESS ON FILE Social History Tobacco Use Types Packs/Day Years Used Date Smoking Tobacco: Never Assessed Comments Unknown Sex and Gender Information Value Date Recorded Sex Assigned at Not on file 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 Gender Identity Not on file Sexual Orientation Not on file documented as of this encounter Plan of Treatment Upcoming Encounters Date Type Department Care Team (Late st Contact Info) Description 04/25/2025 8:20 AM CDT Office Visit [facility] [address] [place] [address] [place] [address] Annalisa Christopher MD [facility] [address] [place] [address] documented as of this encounter Visit Diagnoses Not on filedocumented in this encounter Care Teams Entry Level Marketing Representative Relationship Specialty Start Date End Date Annalisa Christopher MD [address] [place] [address] [place] [address] PCP - General 07/07/08 documented as of this encounter
--- OUTSIDE RECORDS SUMMARY | 2024-10-18 03:11 | XMS_ITS | Patient Health Summary ---
Author Organization [facility] [employer] Address [address] [place] [address] Care Team Providers Care Park Interpretive Specialist Name Role Phone Leah Santo MD Primary Care Provider Nataliea [facility] Note from Formerly named [facility],non-owned Affiliates and Associated Physician Practices is amultiple site organization consisting of ambulatory clinics and hospital sitesin [place], [place], [place] and [place]. This disclosure is being madepursuant to the Care Everywhere program and may not contain all information available regarding this patient. Last updated 18.[facility] [employer] Allergies * Sulfa Drugs Social History Tobacco [...] Unknown 05/25/2017 12:24 PM CDT Rudi Naik APRN-[facility] [place] [facility] ORDERABLES Care Teams Park Interpretive Specialist Relationship Specialty Start Date End Date Leah Santo MD PCP - General Internal Medicine 05/23/17
--- OUTSIDE RECORDS SUMMARY | 2024-10-18 03:11 | XMS_ITS | Encounter Summary ---
Author Organization [facility] Address 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 Gender Identity Not on file Sexual Orientation Not on file documented as of this encounter Plan of Treatment Upcoming Encounters Date Type Department Care Team (Late Contact Info) Description 04/25/2025 8:20 AM CDT Office Visit [facility] Primary Care - [facility] [address] [facility] [address] [place] [address] Annalisa Christopher MD [address] [facility] [address] [place] [address] documented as of this encounter Visit Diagnoses Diagnosis Abdominal pain, unspecified site- Primary documented in this encounter Care Teams Trumpet Teacher Relationship Specialty Start Date End Date Annalisa Christopher MD [address] [place] [address] PCP - General 07/07/08 documented as of this encounter
--- OUTSIDE RECORDS SUMMARY | 2024-10-18 03:11 | XMS_ITS | Encounter Summary ---
Author Organization [facility] Address 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 Gender Identity Not on file Sexual Orientation Not on file Occupation Industry Job Start Date Job End Date Not on file Not on file Not on file Not on file documented as of this encounter Plan of Treatment Upcoming Encounters Date Type Department Care Team (Late st Contact Info) Description 04/25/2025 8:20 AM CDT Office Visit [facility] Primary Care - [facility] [address] [facility] [address] [place] [address] Annalisa Christopher MD [facility] [address] [place] [address] documented as of this encounter Visit Diagnoses Not on filedocumented in this encounter Care Teams Nurse'S Aides Teacher Relationship Specialty Start Date End Date Annalisa Christopher MD [facility] [address] [place] [address] PCP - General 07/07/08 documented as of this encounter
--- OUTSIDE RECORDS SUMMARY | 2024-10-18 03:12 | XMS_ITS | Encounter Summary ---
Author Organization [facility] Address [address] [place] [address] Care Team Providers Care Cotton Puller Name Role Phone Annalisa Christopher MD Primary Care Provider [phone] Encounter Details Date Type Department Care Team (Late st Contact Info) Description 10/23/2003 Outpatient Historical [facility] KNITTED GARMENT FINISHER - 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 [address] [place] [address] Annalisa Christopher MD [address] [place] [address] documented as of this encounter Visit Diagnoses Not on filedocumented in this encounter Care Teams Cotton Puller Relationship Specialty Start Date End Date Annalisa Christopher MD [address] [place] [address] PCP - General 07/07/08 documented as of this encounter
--- OUTSIDE RECORDS SUMMARY | 2024-10-18 03:12 | XMS_ITS | Encounter Summary ---
Author Organization [facility] Address 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 [address] [facility] [address] [place] [address] Annalisa Christopher MD [address] [facility] [address] [place] [address] documented as of this encounter Visit Diagnoses Diagnosis Other specified malposition or malpresentation of fetus, delivered- Primary documented in this encounter Care Teams Incident Analyst Relationship Specialty Start Date End Date Annalisa Christopher MD [address] [facility] [address] [place] [address] PCP - General 07/07/08 documented as of this encounter
--- OUTSIDE RECORDS SUMMARY | 2024-10-18 03:12 | XMS_ITS | Encounter Summary ---
Author Organization [facility] Address [address] [place] [address] Care Team Providers Care Manager Perioperative Name Role Phone Annalisa Christopher MD Primary Care Provider [phone] Encounter Details Date Type Department Care Team (Latest Contact Info) Description 05/29/2001 Inpatient Historical [facility] PATIENT IN A BED Junior Cook MD [address] [place] [address] Intrauterine affecting management of mother, delivered (Primary Dx) Social History Tobacco Use Types Packs/Day Years Used Date Smoking Tobacco: Never Assessed Comments Unknown Sex and Gender Information Value Date Recorded Sex Assigned at Not on file 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 [address] [facility] [address] [place] [address] Annalisa Christopher MD [address] [facility] [address] [place] [address] documented as of this encounter Visit Diagnoses Diagnosis Intrauterine affecting management of mother, delivered- Primary documented in this encounter Care Teams Manager Perioperative Relationship Specialty Start Date End Date Annalisa Christopher MD [address] [place] [address] PCP - General 07/07/08 documented as of this encounter
--- OUTSIDE RECORDS SUMMARY | 2024-10-18 03:12 | XMS_ITS | Encounter Summary ---
Author Organization [facility] Address [address] [place] [address] Care Team Providers Care Director Insurance Name Role Phone Annalisa Christopher MD Primary Care Provider [phone] Encounter Details Date Type Department Care Team (Late st Contact Info) Description 05/08/2003 Outpatient Historical [facility] APPLIANCE SERVICE REPRESENTATIVE - [facility] [address] [place] [address] Gavin Hadley MD [address] [place] [address] Social History Tobacco Use Types Packs/Day Years Used Date Smoking Tobacco: Never Assessed Comments Unknown Sex and Gender Information Value Date Recorded Sex Assigned at Not on file Legal Sex Female 3:07 AM LYMPHEDEMA THERAPIST Gender Identity Not on file Sexual Orientation Not on file documented as of this encounter Plan of Treatment Upcoming Encounters Date Type Department Care Team (Late st Contact Info) Description 04/25/2025 8:20 AM CDT Office Visit [facility] Primary Care - [facility] [address] [place] [address] Annalisa Christopher MD [address] [place] [address] documented as of this encounter Visit Diagnoses Not on filedocumented in this encounter Care Teams Director Insurance Relationship Specialty Start Date End Date Annalisa Christopher MD [address] [place] [address] PCP - General 07/07/08 documented as of this encounter
--- OUTSIDE RECORDS SUMMARY | 2024-10-18 03:12 | XMS_ITS | Encounter Summary ---
Author Organization [facility] Address [address] [place] [address] Care Team Providers Care Valve Grinder Name Role Phone Annalisa Christopher MD Primary Care Provider [phone] Encounter Details Date Type Department Care Team (Late st Contact Info) Description 04/08/2003 Outpatient Historical [facility] MACHINE CAGE MAKER - 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 [address] [place] [address] Annalisa Christopher MD [address] [place] [address] documented as of this encounter Visit Diagnoses Not on filedocumented in this encounter Care Teams Valve Grinder Relationship Specialty Start Date End Date Annalisa Christopher MD [address] [place] [address] PCP - General 07/07/08 documented as of this encounter
--- OUTSIDE RECORDS SUMMARY | 2024-10-18 03:12 | XMS_ITS | Encounter Summary ---
Author Organization [facility] Address [address] [place] [address] Care Team Providers Care Melter Supervisor Oxygen Furnace Name Role Phone Annalisa Christopher MD Primary Care Provider [phone] Encounter Details Date Type Department Care Team (Late st Contact Info) Description 07/01/2003 Outpatient Historical [facility] WAYS OPERATOR - [facility] [address] [place] [address] Gavin Hadley MD [address] [place] [address] Social History Tobacco Use Types Packs/Day Years Used Date Smoking Tobacco: Never Assessed Comments Unknown Sex and Gender Information Value Date Recorded Sex Assigned at Not on file 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 Gender Identity Not on file Sexual Orientation Not on file documented as of this encounter Plan of Treatment Upcoming Encounters Date Type Department Care Team (Late st Contact Info) Description 04/25/2025 8:20 AM CDT Office Visit [facility] Primary Care - [facility] [address] [place] [address] Annalisa Christopher MD [address] [place] [address] documented as of this encounter Visit Diagnoses Not on filedocumented in this encounter Care Teams Melter Supervisor Oxygen Furnace Relationship Specialty Start Date End Date Annalisa Christopher MD [address] [place] [address] PCP - General 07/07/08 documented as of this encounter
--- OUTSIDE RECORDS SUMMARY | 2024-10-18 03:12 | XMS_ITS | Encounter Summary ---
Author Organization [facility] Address [address] [place] [address] Care Team Providers Care Network Operations Lead Name Role Phone Annalisa Christopher MD Primary Care Provider [phone] Encounter Details Date Type Department Care Team (Late st Contact Info) Description 09/04/2003 Outpatient Historical [facility] IP PARALEGAL - [facility] [address] [place] [address] Gavin Hadley MD [address] [place] [address] Social History Tobacco Use Types Packs/Day Years Used Date Smoking Tobacco: Never Assessed Comments Unknown Sex and Gender Information Value Date Recorded Sex Assigned at Not on file Legal Sex Female 3:07 AM 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 FABRICATION SUPERVISOR Gender Identity Not on file Sexual Orientation Not on file documented as of this encounter Plan of Treatment Upcoming Encounters Date Type Department Care Team (Late st Contact Info) Description 04/25/2025 8:20 AM CDT Office Visit [facility] Primary Care - [facility] [address] [place] [address] Annalisa Christopher MD [address] [place] [address] documented as of this encounter Visit Diagnoses Not on filedocumented in this encounter Care Teams Network Operations Lead Relationship Specialty Start Date End Date Annalisa Christopher MD [address] [place] [address] PCP - General 07/07/08 documented as of this encounter
--- OUTSIDE RECORDS SUMMARY | 2024-10-18 03:12 | XMS_ITS | Encounter Summary ---
Author Organization [facility] Address [address] [place] [address] Care Team Providers Care Communication Electronic Technician Name Role Phone Annalisa Christopher MD Primary Care Provider [phone] Encounter Details Date Type Department Care Team (Late st Contact Info) Description 07/18/2003 Outpatient Historical [facility] CIRCUS ROUSTABOUT - Medical [address] [address] Joe Meng MD [address] [place] [address] Social History Tobacco Use Types Packs/Day Years Used Date Smoking Tobacco: Never Assessed Comments Unknown Sex and Gender Information Value Date Recorded Sex Assigned at Not on file 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 [address] [place] [address] Annalisa Christopher MD [address] [place] [address] [address] [place] [address] documented as of this encounter Visit Diagnoses Not on filedocumented in this encounter Care Teams Communication Electronic Technician Relationship Specialty Start Date End Date Annalisa Christopher MD [address] [place] [address] PCP - General 07/07/08 documented as of this encounter
--- OUTSIDE RECORDS SUMMARY | 2024-10-18 03:12 | XMS_ITS | Encounter Summary ---
Author Organization [facility] Address [address] [place] [address] Care Team Providers Care Associate Account Executive Name Role Phone Annalisa Christopher MD Primary Care Provider [phone] Encounter Details Date Type Department Care Team (Late st Contact Info) Description 10/11/2004 Outpatient Historical [facility] PADDOCK JUDGE - [facility] [address] [place] [address] Gavin Hadley MD [address] [place] [address] Social History Tobacco Use Types Packs/Day Years Used Date Smoking Tobacco: Never Assessed Comments Unknown Sex and Gender Information Value Date Recorded Sex Assigned at Not on file 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 Gender Identity Not on file Sexual Orientation Not on file documented as of this encounter Plan of Treatment Upcoming Encounters Date Type Department Care Team (Late st Contact Info) Description 04/25/2025 8:20 AM CDT Office Visit [facility] Primary Care - [facility] [address] [place] [address] Annalisa Christopher MD [address] [place] [address] documented as of this encounter Visit Diagnoses Not on filedocumented in this encounter Care Teams Associate Account Executive Relationship Specialty Start Date End Date Annalisa Christopher MD [address] [place] [address] PCP - General 07/07/08 documented as of this encounter
--- OUTSIDE RECORDS SUMMARY | 2024-10-18 03:12 | XMS_ITS | Encounter Summary ---
Author Organization [facility] Address [address] [place] [address] Care Team Providers Care Solar Site Assessment Specialist Name Role Phone Annalisa Christopher MD Primary Care Provider [phone] Encounter Details Date Type Department Care Team (Late st Contact Info) Description 08/29/2003 Outpatient Historical [facility] COUNTY ASSESSOR - Medical [facility] [id number] [place] [address] Michael Ledesma MD [id number] [place] [address] Social History Tobacco Use Types Packs/Day Years Used Date Smoking Tobacco: Never Assessed Comments Unknown Sex and Gender Information Value Date Recorded Sex Assigned at Not on file Legal Sex Female 3:07 AM SANDER HAND Gender Identity Not on file Sexual Orientation Not on file documented as of this encounter Plan of Treatment Upcoming Encounters Date Type Department Care Team (Late st Contact Info) Description 04/25/2025 8:20 AM CDT Office Visit [facility] Primary Care - [facility] [address] [place] [address] Annalisa Christopher MD [facility] [address] [place] [address] documented as of this encounter Visit Diagnoses Not on filedocumented in this encounter Care Teams Solar Site Assessment Specialist Relationship Specialty Start Date End Date Annalisa Christopher MD [address] [place] [address] PCP - General 07/07/08 documented as of this encounter
--- OUTSIDE RECORDS SUMMARY | 2024-10-18 03:12 | XMS_ITS | Encounter Summary ---
Author Organization [facility] Address [address] [place] [address] Care Team Providers Care Manga Artist Name Role Phone Annalisa Christopher MD Primary Care Provider [phone] Encounter Details Date Type Department Care Team (Late st Contact Info) Description 11/18/2003 Outpatient Historical [facility] OIL SPECULATOR - [facility] [address] [place] [address] Gavin Hadley MD [address] [place] [address] Social History Tobacco Use Types Packs/Day Years Used Date Smoking Tobacco: Never Assessed Comments Unknown Sex and Gender Information Value Date Recorded Sex Assigned at Not on file 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 Female 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 Gender Identity Not on file Sexual Orientation Not on file documented as of this encounter Plan of Treatment Upcoming Encounters Date Type Department Care Team (Late st Contact Info) Description 04/25/2025 8:20 AM CDT Office Visit [facility] Primary Care - [facility] [address] [place] [address] Annalisa Christopher MD [address] [place] [address] documented as of this encounter Visit Diagnoses Not on filedocumented in this encounter Care Teams Manga Artist Relationship Specialty Start Date End Date Annalisa Christopher MD [address] [place] [address] PCP - General 07/07/08 documented as of this encounter
--- OUTSIDE RECORDS SUMMARY | 2024-10-18 03:12 | XMS_ITS | Encounter Summary ---
Author Organization [facility] Address [address] [place] [address] Care Team Providers Care Manager Package Name Role Phone Annalisa Christopher MD Primary Care Provider [phone] Encounter Details Date Type Department Care Team (Late st Contact Info) Description 10/07/2003 Outpatient Historical [facility] LEGAL MANAGER - [facility] [address] [place] [address] Gavin Hadley MD [address] [place] [address] Social History Tobacco Use Types Packs/Day Years Used Date Smoking Tobacco: Never Assessed Comments Unknown Sex and Gender Information Value Date Recorded Sex Assigned at Not on file Legal Sex Female 3: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 HARDBOARD Gender Identity Not on file Sexual Orientation Not on file documented as of this encounter Plan of Treatment Upcoming Encounters Date Type Department Care Team (Late st Contact Info) Description 04/25/2025 8:20 AM CDT Office Visit [facility] Primary Care - [facility] [address] [place] [address] Annalisa Christopher MD [address] [place] [address] documented as of this encounter Visit Diagnoses Not on filedocumented in this encounter Care Teams Manager Package Relationship Specialty Start Date End Date Annalisa Christopher MD [address] [place] [address] PCP - General 07/07/08 documented as of this encounter
--- OUTSIDE RECORDS SUMMARY | 2024-10-18 03:12 | XMS_ITS | Encounter Summary ---
Author Organization [facility] Address [address] [place] [address] Care Team Providers Care Senior Sales Administrator Name Role Phone Annalisa Christopher MD Primary Care Provider [phone] Encounter Details Date Type Department Care Team (Late st Contact Info) Description 11/25/2003 Outpatient Historical [facility] VENEER GLUER - [facility] [address] [place] [address] Gavin Hadley MD [address] [place] [address] Social History Tobacco Use Types Packs/Day Years Used Date Smoking Tobacco: Never Assessed Comments Unknown Sex and Gender Information Value Date Recorded Sex Assigned at Not on file 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 Gender Identity Not on file Sexual Orientation Not on file documented as of this encounter Plan of Treatment Upcoming Encounters Date Type Department Care Team (Late st Contact Info) Description 04/25/2025 8:20 AM CDT Office Visit [facility] Primary Care - [facility] [address] [place] [address] Annalisa Christopher MD [address] [place] [address] documented as of this encounter Visit Diagnoses Not on filedocumented in this encounter Care Teams Senior Sales Administrator Relationship Specialty Start Date End Date Annalisa Christopher MD [address] [place] [address] PCP - General 07/07/08 documented as of this encounter
--- OUTSIDE RECORDS SUMMARY | 2024-10-18 03:12 | XMS_ITS | Encounter Summary ---
Author Organization [facility] Address [address] [place] [address] Care Team Providers Care Automatic Vulcanizing Lead Operator Name Role Phone Annalisa Christopher MD Primary Care Provider [phone] Encounter Details Date Type Department Care Team (Late st Contact Info) Description 01/19/2004 Outpatient Historical [facility] EXHAUSTER ENGINEER - [facility] [address] [place] [address] Gavin Hadley MD [address] [place] [address] Social History Tobacco Use Types Packs/Day Years Used Date Smoking Tobacco: Never Assessed Comments Unknown Sex and Gender Information Value Date Recorded Sex Assigned at Not on file Legal Sex Female 3:07 AM DIRECTOR BUSINESS Gender Identity Not on file Sexual Orientation Not on file documented as of this encounter Plan of Treatment Upcoming Encounters Date Type Department Care Team (Late st Contact Info) Description 04/25/2025 8:20 AM CDT Office Visit [facility] Primary Care - [facility] [address] [place] [address] Annalisa Christopher MD [address] [place] [address] documented as of this encounter Visit Diagnoses Not on filedocumented in this encounter Care Teams Automatic Vulcanizing Lead Operator Relationship Specialty Start Date End Date Annalisa Christopher MD [address] [place] [address] PCP - General 07/07/08 documented as of this encounter
--- OUTSIDE RECORDS SUMMARY | 2024-10-18 03:12 | XMS_ITS | Encounter Summary ---
Author Organization [facility] Address [address] [place] [address] Care Team Providers Care Equity Research Analyst Name Role Phone Annalisa Christopher MD Primary Care Provider [phone] Encounter Details Date Type Department Care Team (Late st Contact Info) Description 11/11/2003 Outpatient Historical [facility] CAKE ICER AND PACKER - [facility] [address] [place] [address] Gavin Hadley MD [address] [place] [address] Social History Tobacco Use Types Packs/Day Years Used Date Smoking Tobacco: Never Assessed Comments Unknown Sex and Gender Information Value Date Recorded Sex Assigned at Not on file Legal Sex Female 3:07 AM JOB SETTER HONING Gender Identity Not on file Sexual Orientation Not on file documented as of this encounter Plan of Treatment Upcoming Encounters Date Type Department Care Team (Late st Contact Info) Description 04/25/2025 8:20 AM CDT Office Visit [facility] Primary Care - [facility] [address] [place] [address] Annalisa Christopher MD [address] [place] [address] documented as of this encounter Visit Diagnoses Not on filedocumented in this encounter Care Teams Equity Research Analyst Relationship Specialty Start Date End Date Annalisa Christopher MD [address] [place] [address] PCP - General 07/07/08 documented as of this encounter
--- OUTSIDE RECORDS SUMMARY | 2024-10-18 03:12 | XMS_ITS | Encounter Summary ---
Author Organization [facility] Address [address] [place] [address] Care Team Providers Care Directional Driller Name Role Phone Annalisa Christopher MD Primary Care Provider [phone] Encounter Details Date Type Department Care Team (Late st Contact Info) Description 06/05/2003 Outpatient Historical [facility] SUPERVISOR FUNCTIONAL TESTING - [facility] [address] [place] [address] Gavin Hadley MD [address] [place] [address] Social History Tobacco Use Types Packs/Day Years Used Date Smoking Tobacco: Never Assessed Comments Unknown Sex and Gender Information Value Date Recorded Sex Assigned at Not on file Legal Sex Female 3: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 Gender Identity Not on file Sexual Orientation Not on file documented as of this encounter Plan of Treatment Upcoming Encounters Date Type Department Care Team (Late st Contact Info) Description 04/25/2025 8:20 AM CDT Office Visit [facility] Primary Care - [facility] [address] [place] [address] Annalisa Christopher MD [address] [place] [address] documented as of this encounter Visit Diagnoses Not on filedocumented in this encounter Care Teams Directional Driller Relationship Specialty Start Date End Date Annalisa Christopher MD [address] [place] [address] PCP - General 07/07/08 documented as of this encounter
--- OUTSIDE RECORDS SUMMARY | 2024-10-18 03:12 | XMS_ITS | Encounter Summary ---
Author Organization [facility] Address [address] [place] [address] Care Team Providers Care Supervisor Wire Rope Fabrication Name Role Phone Annalisa Christopher MD Primary Care Provider [phone] Encounter Details Date Type Department Care Team (Late st Contact Info) Description 11/29/2003 Outpatient Historical [facility] PREPRESS MANAGER - [facility] [address] [place] [address] Gavin Hadley MD [address] [place] [address] Social History Tobacco Use Types Packs/Day Years Used Date Smoking Tobacco: Never Assessed Comments Unknown Sex and Gender Information Value Date Recorded Sex Assigned at Not on file Legal Sex Female 3:07 AM PEER COUNSELOR Gender Identity Not on file Sexual Orientation Not on file documented as of this encounter Plan of Treatment Upcoming Encounters Date Type Department Care Team (Late st Contact Info) Description 04/25/2025 8:20 AM CDT Office Visit [facility] Primary Care - [facility] [address] [place] [address] Annalisa Christopher MD [address] [place] [address] documented as of this encounter Visit Diagnoses Not on filedocumented in this encounter Care Teams Supervisor Wire Rope Fabrication Relationship Specialty Start Date End Date Annalisa Christopher MD [address] [place] [address] PCP - General 07/07/08 documented as of this encounter
--- OUTSIDE RECORDS SUMMARY | 2024-10-18 03:12 | XMS_ITS | Encounter Summary ---
Author Organization [facility] Address [address] [place] [address] Care Team Providers Care Helminthologist Name Role Phone Annalisa Christopher MD Primary Care Provider [phone] Encounter Details Date Type Department Care Team (Late st Contact Info) Description 07/29/2003 Outpatient Historical [facility] IRON ASSORTER - [facility] [address] [place] [address] Gavin Hadley MD [address] [place] [address] Social History Tobacco Use Types Packs/Day Years Used Date Smoking Tobacco: Never Assessed Comments Unknown Sex and Gender Information Value Date Recorded Sex Assigned at Not on file Legal Sex Female 3:07 AM CHILD CUSTODY EVALUATOR Gender Identity Not on file Sexual Orientation Not on file documented as of this encounter Plan of Treatment Upcoming Encounters Date Type Department Care Team (Late st Contact Info) Description 04/25/2025 8:20 AM CDT [facility] - [facility] [address] [place] [address] Annalisa Christopher MD [address] [place] [address] documented as of this encounter Visit Diagnoses Not on filedocumented in this encounter Care Teams Helminthologist Relationship Specialty Start Date End Date Annalisa Christopher MD [address] [place] [address] PCP - General 07/07/08 documented as of this encounter
== END 2024-10-16 16:05 | disposition home or self-care (01) ==
PROVIDERS: Visit Provider Nurse Practitioner Family
DX: R19.7 Diarrhea, unspecified (principal); K59.39 Other megacolon
CPT/HCPCS: 74019

== ENCOUNTER 2024-10-17 07:13 | Outpatient (CLI) | payer BC, SELFPAY ==
[2024-10-17 09:19] LABS: Toxigenic C. Diff POSITIVE (NEGATIVE)
[2024-10-22 20:18] LABS: Calprotectin, Stool 1370 mcg/g
== END 2024-10-17 07:14 | disposition home or self-care (01) ==
PROVIDERS: Visit Provider Nurse Practitioner Family
DX: R19.7 Diarrhea, unspecified (principal)
CPT/HCPCS: 83993; 87045; 87177; 87209; 87269; 87427; 87449; 87493

== ENCOUNTER 2024-12-09 00:37 | Day surgery (SDC) | payer BC, SELFPAY ==
[2024-11-27 11:10] VITALS: BMI 28.2
--- OUTSIDE RECORDS SUMMARY | 2024-12-09 00:40 | XMS_ITS | Encounter Summary ---
Author Organization [facility] Address [address] [place] [address] Care Team Providers Care Vp Platforms Name Role Phone Annalisa Christohper MD Primary Care Provider [phone] Encounter Details Date Type Department Care Team (Late st Contact Info) Description 05/08/2003 Outpatient Historical [facility] ESTHETICIAN/SKIN THERAPIST - [facility] [address] [place] [address] Gavin Hadley MD [address] [place] [address] Social History Tobacco Use Types Packs/Day Years Used Date Smoking Tobacco: Never Assessed Comments Unknown Sex and Gender Information Value Date Recorded Sex Assigned at Not on file 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 Primary Care - [facility] [address] [place] [address] Annalisa Christopher MD [address] [place] [address] documented as of this encounter Visit Diagnoses Not on filedocumented in this encounter Care Teams Vp Platforms Relationship Specialty Start Date End Date Annalisa Christopher MD [address] [place] [address] PCP - General 07/07/08 documented as of this encounter
--- OUTSIDE RECORDS SUMMARY | 2024-12-09 00:40 | XMS_ITS | Encounter Summary ---
Author Organization [facility] Address [address] [place] [address] Care Team Providers Care Special Machine Operator Name Role Phone Annalisa Christopher MD Primary Care Provider [phone] Encounter Details Date Type Department Care Team (Late st Contact Info) Description 12/27/2007 Outpatient Historical [facility] [address] [place] [address] Annalisa Christopher MD [address] [place] [address] [address] [place] [address] Social History Tobacco Use Types Packs/Day Years Used Date Smoking Tobacco: Never Assessed Comments Unknown Sex and Gender Information Value Date Recorded Sex Assigned at Not on file Legal Sex Female 3:07 AM LATEXER Gender Identity Not on file Sexual Orientation Not on file documented as of this encounter Plan of Treatment Upcoming Encounters Date Type Department Care Team (Late st Contact Info) Description 04/25/2025 8:20 AM CDT Office Visit [facility] [address] [place] [address] Annalisa Christopher MD [address] [place] [address] [address] [place] [address] documented as of this encounter Visit Diagnoses Not on filedocumented in this encounter Care Teams Special Machine Operator Relationship Specialty Start Date End Date Annalisa Christopher MD [address] [place] [address] PCP - General 07/07/08 documented as of this encounter
--- OUTSIDE RECORDS SUMMARY | 2024-12-09 00:40 | XMS_ITS | Encounter Summary ---
Author Organization [facility] Address [address] [place] [address] Care Team Providers Care Master Cosmetologist Name Role Phone Annalisa Christopher MD Primary Care Provider [phone] Encounter Details Date Type Department Care Team (Late st Contact Info) Description 10/07/2003 Outpatient Historical [facility] LAND LEASING INFORMATION CLERK - [facility] [address] [place] [address] Gavin Hadley MD [address] [place] [address] Social History Tobacco Use Types Packs/Day Years Used Date Smoking Tobacco: Never Assessed Comments Unknown Sex and Gender Information Value Date Recorded Sex Assigned at Not on file Legal Sex Female 3:07 AM DIESEL ENGINE SPECIALIST Gender Identity Not on file Sexual Orientation Not on file documented as of this encounter Plan of Treatment Upcoming Encounters Date Type Department Care Team (Late st Contact Info) Description 04/25/2025 8:20 AM CDT Office Visit [facility] Primary Care - [facility] [address] [place] [address] Annalisa Christopher MD [address] [place] [address] documented as of this encounter Visit Diagnoses Not on filedocumented in this encounter Care Teams Master Cosmetologist Relationship Specialty Start Date End Date Annalisa Christopher MD [address] [place] [address] PCP - General 07/07/08 documented as of this encounter
--- OUTSIDE RECORDS SUMMARY | 2024-12-09 00:40 | XMS_ITS | Encounter Summary ---
Author Organization [facility] Address [address] [place] [address] Care Team Providers Care Manager Health Name Role Phone Annalisa Christopher MD Primary Care Provider [phone] Encounter Details Date Type Department Care Team (Late st Contact Info) Description 10/23/2003 Outpatient Historical [facility] POULTRY PICKER - [facility] [address] [place] [address] Gavni Hadley MD [address] [place] [address] Social History Tobacco Use Types Packs/Day Years Used Date Smoking Tobacco: Never Assessed Comments Unknown Sex and Gender Information Value Date Recorded Sex Assigned at Not on file Legal Sex Female 3: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 OPERATOR Gender Identity Not on file Sexual Orientation Not on file documented as of this encounter Plan of Treatment Upcoming Encounters Date Type Department Care Team (Late st Contact Info) Description 04/25/2025 8:20 AM CDT Office Visit [facility] Primary Care - [facility] [address] [place] [address] Annalisa Christopher MD [address] [place] [address] documented as of this encounter Visit Diagnoses Not on filedocumented in this encounter Care Teams Manager Health Relationship Specialty Start Date End Date Annalisa Christopher MD [address] [place] [address] PCP - General 07/07/08 documented as of this encounter
--- OUTSIDE RECORDS SUMMARY | 2024-12-09 00:40 | XMS_ITS | Encounter Summary ---
Author Organization [facility] Address [address] [place] [address] Care Team Providers Care Button Buttonhole Marker Name Role Phone Annalisa Christopher MD Primary Care Provider [phone] Encounter Details Date Type Department Care Team (Late st Contact Info) Description 11/25/2003 Outpatient Historical [facility] REHABILITATION DIRECTOR - [facility] [address] [place] [address] Gavin Hadley MD [address] [place] [address] Social History Tobacco Use Types Packs/Day Years Used Date Smoking Tobacco: Never Assessed Comments Unknown Sex and Gender Information Value Date Recorded Sex Assigned at Not on file Legal Sex Female 3:07 AM PENS AND PENCILS REPAIRER Gender Identity Not on file Sexual Orientation Not on file documented as of this encounter Plan of Treatment Upcoming Encounters Date Type Department Care Team (Late st Contact Info) Description 04/25/2025 8:20 AM CDT Office Visit [facility] Primary Care - [facility] [address] [place] [address] Annalisa Christopher MD [address] [facility] [place] [address] documented as of this encounter Visit Diagnoses Not on filedocumented in this encounter Care Teams Button Buttonhole Marker Relationship Specialty Start Date End Date Annalisa Christopher MD [address] [place] [address] PCP - General 07/07/08 documented as of this encounter
--- OUTSIDE RECORDS SUMMARY | 2024-12-09 00:40 | XMS_ITS | Encounter Summary ---
Author Organization [facility] Address [address] [place] [address] Care Team Providers Care Plumber And Tinner Name Role Phone Annalisa Christopher MD Primary Care Provider [phone] Encounter Details Date Type Department Care Team (Late st Contact Info) Description 07/29/2003 Outpatient Historical [facility] SHAMPOO TECHNICIAN - [facility] [address] [place] [address] Gavin Hadley MD [address] [place] [address] Social History Tobacco Use Types Packs/Day Years Used Date Smoking Tobacco: Never Assessed Comments Unknown Sex and Gender Information Value Date Recorded Sex Assigned at Not on file Legal Sex Female 3:07 AM HOUSEHOLD APPLIANCE ASSEMBLER Gender Identity Not on file Sexual Orientation Not on file documented as of this encounter Plan of Treatment Upcoming Encounters Date Type Department Care Team (Late st Contact Info) Description 04/25/2025 8:20 AM CDT Office Visit [facility] Primary Care - [facility] [address] [place] [address] Annalisa Christopher MD [address] [place] [address] documented as of this encounter Visit Diagnoses Not on filedocumented in this encounter Care Teams Plumber And Tinner Relationship Specialty Start Date End Date Annalisa Christopher MD [address] [place] [address] PCP - General 07/07/08 documented as of this encounter
--- OUTSIDE RECORDS SUMMARY | 2024-12-09 00:40 | XMS_ITS | Encounter Summary ---
Author Organization [facility] Address [address] [place] [address] Care Team Providers Care Security Escort Name Role Phone Annalisa Christopher MD Primary Care Provider [phone] Encounter Details Date Type Department Care Team [...] on file Legal Sex Female 3:07 AM DETAILER Gender Identity Not on file Sexual Orientation Not on file documented as of this encounter Plan of Treatment Upcoming Encounters Date Type Department Care Team (Late st Contact Info) Description 04/25/2025 8:20 AM CDT Office Visit [facility] Primary Care - [facility] [address] [place] [address] Annalisa Christopher MD [address] [place] [address] [place] [address] documented as of this encounter Visit Diagnoses Diagnosis Abdominal pain, unspecified site- Primary documented in this encounter Care Teams Security Escort Relationship Specialty Start Date End Date Annalisa Christopher MD [address] [place] [address] PCP - General 07/07/08 documented as of this encounter
--- OUTSIDE RECORDS SUMMARY | 2024-12-09 00:40 | XMS_ITS | Encounter Summary ---
Author Organization [facility] Address [address] [place] [address] Care Team Providers Care Patient Svcs Mgr Name Role Phone Annalisa Christopher MD Primary Care Provider [phone] Encounter Details Date Type Department Care Team (Late st Contact Info) Description 12/29/2005 Outpatient Historical [facility] READY MIX TRUCK DRIVER - [facility] [address] [place] [address] Douglas Patricio MD [address] [facility] [address] [place] [address] Social History Tobacco Use Types Packs/Day Years Used Date Smoking Tobacco: Never Assessed Comments Unknown Sex and Gender Information Value Date Recorded Sex Assigned at Not on file Legal Sex Female 3:07 AM REGIONAL SAFETY MANAGER Gender Identity Not on file Sexual Orientation Not on file documented as of this encounter Plan of Treatment Upcoming Encounters Date Type Department Care Team (Late st Contact Info) Description 04/25/2025 8:20 AM CDT Office Visit [facility] Primary Care - [facility] [address] [place] [address] Annalisa Christopher MD [address] [place] [address] [address] [place] [address] documented as of this encounter Visit Diagnoses Not on filedocumented in this encounter Care Teams Patient Svcs Mgr Relationship Specialty Start Date End Date Annalisa Christopher MD [address] [place] [address] PCP - General 07/07/08 documented as of this encounter
--- OUTSIDE RECORDS SUMMARY | 2024-12-09 00:40 | XMS_ITS | Encounter Summary ---
Author Organization [facility] Address [address] [place] [address] Care Team Providers Care Bilingual Speech Therapist Name Role Phone Annalisa Christopher MD Primary Care Provider [phone] Encounter Details Date Type Department Care Team (Late st Contact Info) Description 08/24/2007 Outpatient Historical [facility] Care - [place] [address] [place] [address] Hasmukh Lucas MD [address] [place] [address] Social History Tobacco Use Types Packs/Day Years Used Date Smoking Tobacco: Never Assessed Comments Unknown Sex and Gender Information Value Date Recorded Sex Assigned at Not on file Legal Sex Female 3:07 AM SECURITY TECHNICIAN Gender Identity Not on file Sexual Orientation Not on file documented as of this encounter Plan of Treatment Upcoming Encounters Date Type Department Care Team (Late st Contact Info) Description 04/25/2025 8:20 AM CDT Office Visit [facility] - [facility] [address] [place] [address] Annalisa Christopher MD [facility] [address] [place] [address] documented as of this encounter Visit Diagnoses Not on filedocumented in this encounter Care Teams Bilingual Speech Therapist Relationship Specialty Start Date End Date Annalisa Christopher MD [address] [place] [address] PCP - General 07/07/08 documented as of this encounter
--- OUTSIDE RECORDS SUMMARY | 2024-12-09 00:40 | XMS_ITS | Encounter Summary ---
Author Organization [facility] Address [address] [place] [address] Care Team Providers Care Informatica Mdm Architect Name Role Phone Annalisa Christopher MD Primary Care Provider [phone] Encounter Details Date Type Department Care Team (Late st Contact Info) Description 10/11/2004 Outpatient Historical [facility] JD EDWARDS DEVELOPER - [facility] [address] [place] [address] Gavin Hadley MD [address] [place] [address] Social History Tobacco Use Types Packs/Day Years Used Date Smoking Tobacco: Never Assessed Comments Unknown Sex and Gender Information Value Date Recorded Sex Assigned at Not on file Legal Sex Female 3:07 AM TAXICAB STARTER Gender Identity Not on file Sexual Orientation Not on file documented as of this encounter Plan of Treatment Upcoming Encounters Date Type Department Care Team (Late st Contact Info) Description 04/25/2025 8:20 AM CDT Office Visit [facility] Primary Care - [facility] [address] [place] [address] Annalisa Christopher MD [address] [place] [address] documented as of this encounter Visit Diagnoses Not on filedocumented in this encounter Care Teams Informatica Mdm Architect Relationship Specialty Start Date End Date Annalisa Christopher MD [address] [place] [address] PCP - General 07/07/08 documented as of this encounter
--- OUTSIDE RECORDS SUMMARY | 2024-12-09 00:40 | XMS_ITS | Clinical Summary ---
Author Organization [facility] [employer] Address [address] [place] [address] Care Team Providers Care Rubber Goods Assembler Name Role Phone Leah Santo MD Primary Care Provider Unavaila ble Source Comments [facility],non-owned Affiliates and Associated Physician Practices is amultiple site organization consisting of ambulatory clinics and hospital sitesin [place], [place], [place] and [place]. This disclosure is being madepursuant to the Care Everywhere program and may not contain all information available regarding this patient. Last updated 18.[facility] [employer] Allergies Active Allergy Reactions Criticality Noted Date [...] to complete this topic MENINGOCOCCAL (Group B) VACC INE SHARED DECISION-MAKING Aged Out No longer eligibl e based on patient's age to complete this topic MENINGOCOCCAL GROUPS A/C/Y/W VACCINE Aged Out No longer eligible b ased on patient's age to complete this topic PNEUMOCOCCAL VACCINE Aged Out No long er eligible based on patient's age to complete this topic Care Teams Rubber Goods Assembler Relationship Specialty Start Date End Date Leah Santo MD PCP - General Internal Medicine 05/23/17
--- OUTSIDE RECORDS SUMMARY | 2024-12-09 00:40 | XMS_ITS | Referral Summary ---
Author Organization [facility] Address [address] [place] [address] Care Team Providers Care Assembler Handbags Name Role Phone Leah Santo MD Primary Care Provider Unavaila ble Source Comments [facility],non-owned Affiliates and Associated Physician Practices is amultiple site organization consisting of ambulatory clinics and hospital sitesin [place], [place], [place] and [place]. This disclosure is being madepursuant to the Care Everywhere program and may not contain all information available regarding this patient. Last updated 18.[facility] [employer] Allergies Active Allergy Reactions Criticality Noted Date Comments Sulfa Drugs 05/23/2017 Social History Tobacco Use Types Packs/Day Years Used Date Smoking Tobacco: Never Assessed Sex and Gender Information Value Date Recorded Sex Assigned at Not on file Gender Identity Not on file Sexual Orientation Not on file Plan of Treatment Not on file Administered Medications Care Teams Assembler Handbags Relationship Specialty Start Date End Date Leah Santo MD PCP - General Internal Medicine 05/23/17
--- OUTSIDE RECORDS SUMMARY | 2024-12-09 00:40 | XMS_ITS | Encounter Summary ---
Author Organization [facility] Address [address] [place] [address] Care Team Providers Care Tobacco Checkout Clerk Name Role Phone Annalisa Christopher MD Primary Care Provider [phone] Encounter Details Date Type Department Care Team (Late st Contact Info) Description 11/18/2003 Outpatient Historical [facility] DISC RECORDIST - [facility] [address] [place] [address] Gavin Hadley MD [address] [place] [address] Social History Tobacco Use Types Packs/Day Years Used Date Smoking Tobacco: Never Assessed Comments Unknown Sex and Gender Information Value Date Recorded Sex Assigned at Not on file Legal Sex Female 3:07 AM AUTOMOTIVE ALIGNMENT SPECIALIST Gender Identity Not on file Sexual Orientation Not on file documented as of this encounter Plan of Treatment Upcoming Encounters Date Type Department Care Team (Late st Contact Info) Description 04/25/2025 8:20 AM CDT Office Visit [facility] Primary Care - [facility] [address] [place] [address] Annalisa Christopher MD [address] [place] [address] documented as of this encounter Visit Diagnoses Not on filedocumented in this encounter Care Teams Tobacco Checkout Clerk Relationship Specialty Start Date End Date Annalisa Christopher MD [address] [place] [address] PCP - General 07/07/08 documented as of this encounter
--- OUTSIDE RECORDS SUMMARY | 2024-12-09 00:40 | XMS_ITS | Encounter Summary ---
Author Organization [facility] Address [address] [place] [address] Care Team Providers Care Conventions Assistant Name Role Phone Annalisa Christopher MD Primary Care Provider [phone] Encounter Details Date Type Department Care Team (Late st Contact Info) Description 11/11/2003 Outpatient Historical [facility] CLINIC ASSISTANT - [facility] [address] [place] [address] Gavin Hadley MD [address] [place] [address] Social History Tobacco Use Types Packs/Day Years Used Date Smoking Tobacco: Never Assessed Comments Unknown Sex and Gender Information Value Date Recorded Sex Assigned at Not on file Legal Sex Female 3:07 AM ARMY MANAGER Gender Identity Not on file Sexual Orientation Not on file documented as of this encounter Plan of Treatment Upcoming Encounters Date Type Department Care Team (Late st Contact Info) Description 04/25/2025 8:20 AM CDT Office Visit [facility] Primary Care - [facility] [address] [place] [address] Annalisa Christopher MD [address] [place] [address] documented as of this encounter Visit Diagnoses Not on filedocumented in this encounter Care Teams Conventions Assistant Relationship Specialty Start Date End Date Annalisa Christopher MD [address] [place] [address] PCP - General 07/07/08 documented as of this encounter
--- OUTSIDE RECORDS SUMMARY | 2024-12-09 00:40 | XMS_ITS | Encounter Summary ---
Author Organization [facility] Address [address] [place] [address] Care Team Providers Care Carpenter/Labor Name Role Phone Annalisa Christopher MD Primary Care Provider [phone] Encounter Details Date Type Department Care Team (Late st Contact Info) Description 10/17/2006 Outpatient Historical [facility] LICENSED THERAPIST - [facility] [address] [place] [address] Douglas Patricio MD [address] [place] [address] Social History Tobacco Use Types Packs/Day Years Used Date Smoking Tobacco: Never Assessed Comments Unknown Sex and Gender Information Value Date Recorded Sex Assigned at Not on file Legal Sex Female 3:07 AM LITIGATION EXAMINER Gender Identity Not on file Sexual Orientation Not on file documented as of this encounter Plan of Treatment Upcoming Encounters Date Type Department Care Team (Late st Contact Info) Description 04/25/2025 8:20 AM CDT Office Visit [facility] Primary Care - [facility] [address] [place] [address] Annalisa Christopher MD [address] [place] [address] [address] [place] [address] documented as of this encounter Visit Diagnoses Not on filedocumented in this encounter Care Teams Carpenter/Labor Relationship Specialty Start Date End Date Annalisa Christopher MD [address] [place] [address] PCP - General 07/07/08 documented as of this encounter
--- OUTSIDE RECORDS SUMMARY | 2024-12-09 00:40 | XMS_ITS | Encounter Summary ---
Author Organization [facility] Address 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 - [facility] [address] [facility] [address] [place] [address] Douglas Patricio MD [address] [facility] [address] [place] [address] Social History Tobacco Use Types Packs/Day Years Used Date Smoking Tobacco: Never Assessed Comments Unknown Sex and Gender Information Value Date Recorded Sex Assigned at Not on file 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 Gender Identity Not on file Sexual Orientation Not on file documented as of this encounter Plan of Treatment Upcoming Encounters Date Type Department Care Team (Late st Contact Info) Description 04/25/2025 8:20 AM CDT Office Visit [facility] Primary Care - [facility] [address] [facility] [address] [place] [address] Annalisa Christopher MD [address] [place] [address] [address] [place] [address] documented as of this encounter Visit Diagnoses Not on filedocumented in this encounter Care Teams Reject Opener And Filler Relationship Specialty Start Date End Date Annalisa Christopher MD [address] [facility] [address] [place] [address] PCP - General 07/07/08 documented as of this encounter
--- OUTSIDE RECORDS SUMMARY | 2024-12-09 00:40 | XMS_ITS | Clinical Summary ---
Author Organization [facility] Address [address] [place] [address] Care Team Providers Care Welt Rougher Name Role Phone Annalisa Christopher MD Primary Care Provider [phone] Allergies Active Allergy Reactions Criticality Noted Date [...] 3 7 Active fluticasone (FLONASE) 50 mcg/spray [place], Suspension Administer 2 Sprays in each nostril [...] Encounters Date Type Department Care Team Description 12/03/2024 External Device Data STL ABSTRACTION Provider, Abstract 12/03/2024 External Device Data STL ABSTRACTION Provider, Abstract 12/02/2024 External Device Data ST[facility] ABSTRACTION Provider, Abstract 11/30/2024 External Device Data [facility] ABSTRACTION Provider, Abstract 11/29/2024 External Device Data [facility] ABSTRACTION Provider, Abstract 11/26/2024 External Device Data [facility] ABSTRACTION Provider, Abstract 11/19/2024 External Device Data [facility] ABSTRACTION Provider, Abstract 10/16/2024 External Device Data [facility] ABSTRACTION Provider, Abstract 10/15/2024 External Device Data [facility] ABSTRACTION Provider, Abstract 10/09/2024 External Device Data [facility] ABSTRACTION Provider, Abstract 10/01/2024 External Device Data STL ABSTRACTION Provider, Abstract 09/17/2024 Telephone [facility] Care - [address] [place] [address] Annalisa Christopher MD Clinical Consult Before Scheduling [...] PNEUM OCOCCAL CONJUGATE VACCINE 20-VALENT (PCV20), POLYSACCHARIDE [id number] CONJUGATE, ADJUVANT 0.5 ML (PF) IM 04/29/2022 [...] Healthy Daughter 1 Jeanette Heart Disease Father [place] 60's Hypertension Father Stroke Father Diabetes Mother [...] on file 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 Gender Identity Not on file Sexual Orientation Not on file Occupation Industry Job Start Date Job End Date Not on file Not on file Not on file Not on file Last Filed Vital Signs Vital Sign Reading Time Taken Comments Blood Pressure 114/86 07/18/2024 10:15 AM CDT Pulse 84 07/18/2024 10:15 AM CDT Temperature 36.9 C (98.4 F) 07/18/2024 10:15 AM CDT Respiratory Rate 16 07/28/2016 9:48 AM CDT [...] [facility] Primary Care - [facility] [address] [place] [address] Ananlisa Christopher MD [address] [place] [address] Health Maintenance Due Date Last [...] or Tdap) 04/19/2033 04/19/2023, 09/03/2011 PNEUMOCOCCAL VACCINE 0-49 YEARS Completed 2 COVID-19 Vaccine Completed 06/28/2024, [...] 2:42 PM CDT) COLOGUARD RESULT Negative Negative [facility] Comment: NEGATIVE TEST RESULT. A negative Cologuard result indicates a low likelihood that a colorectal cancer (CRC) or advanced adenoma (adenomatous polyps with more advanced pre-malignant features) is present. The chance that a person with a negative Cologuard test has a colorectal cancer is less than 1 in 1500 (negative predictive value >99.9%) or has an advanced adenoma is less than 5.3% (negative predictive value 94.7%). These data are based on a prospective cross-sectional study of 10,000 individuals at average risk for colorectal cancer who were screened with both Cologuard and colonoscopy. (Diane De La O et al, N Engl J Med 2014;370(14):8982-6416) The normal value (reference range) for this assay is negative. COLOGUARD RE-SCREENING RECOMMENDATION: Periodic colorectal cancer screening is an important part of preventive healthcare for asymptomatic individuals at average risk for colorectal cancer. Following a negative Cologuard result, the [employer] [employer] Society and U.S. Multi-Society Task Force screening guidelines recommend a Cologuard re-screening interval of 3 years. References: [employer] Guideline for Colorectal Cancer Screening: https://www.cancer.org/cancer/dmnza-gdycpz-vgezou/boilcsgne-atcqanqab-xtiirvn/ac s-rec ommendations.html.; Compa DK, Santos CR, Cass SungK, Colorectal Cancer Screening: Recommendations for Physicians and Patients from the U.S. Multi-Society Task Force on Colorectal Cancer Screening , Am J Gastroenterology 2017; 112:6915-8145. TEST DESCRIPTION: Composite algorithmic analysis of stool DNA-biomarkers with hemoglobin immunoassay. Quantitative values of individual biomarkers are not [...] (Diane Panchal al, N Engl J Med 2014;370(14):7460-1483.) Cologuard may produce a false negative or false positive result (no colorectal cancer or precancerous polyp present at colonoscopy follow up). A negative Cologuard test result does not guarantee the absence of CRC or advanced adenoma (pre-cancer). The current Cologuard screening interval is every 3 years. ([employer] Society and U.S. Multi-Society Task Force). Cologuard performance data in a 10,000 patient pivotal study using colonoscopy as the reference method can be accessed at the following location: www.Shutl/results. Additional description of the Cologuard test process, warnings and precautions can be found at [email or web address] [email or web address]'s [email or web address]. Stool STOOL SPECIMEN / Unknown 04/26/2024 2:42 PM CDT 04/27/2024 11:24 AM CDT us Pearl Junior NP BODY FLUIDS AND STOOLS Vandana vazquez Result [facility] CLIA # [id number] [address] , [address] [place] [address] * (ABNORMAL) HEMOGLOBIN A1C (04/24/2024 7:16 AM CDT) HEMOGLOBIN A1C 5.7(H) <5.7 % of total Hgb [facility] Comment: For someone without known diabetes, [...] children. ESTIMATED AVERAGE GLUCOSE (MG/DL) 117 mg/dL Barak ITCKaya Melendez ESTIMATED AVERAGE GLUCOSE (MMOL/L) 6.5 mmol/L [facility] Comment: This test was performed on the Cadence halley c503 platform. Effective 12/11/23, a change in test platforms from the Baker Production Control Manager to the Cadence halley c503 may have shifted HbA1c results compared to historical results. Based on laboratory validation testing conducted at [facility], the Cadence platform relative to the Baker [...] recommended. FASTING:YES FASTING: YES Test Performed at: [facility] [place] [address] [address] [place] [phone] Anna-Rut Thi Vo Blood 04/24/2024 7:16 AM CDT 04/24/2024 7:17 AM CDT us Pearl Junior ESTHETICIAN PERMANENT MAKEUP ARTIST CHEMISTRY ORDERABLES Final Result [facility] [phone] [facility] [place] [address] [address] [place] [id number] * MAMMO SCREENING BILAT (02/22/2022) Anatomical Region Laterality Modality Breast Bilateral Other us Abstract Provider MAMMO ORDERABLES Edited Result - Final * CERV/VAG CYTOPATH, SUREPATH W/RFLX HPV (02/01/2011 10:43 AM CDT) CLINICAL INFORMATION [facility] PREV PAP: 10 22 10 WNL [facility] LAST MENSTRUAL PERIOD 12 13 11 [facility] PAP INTERP Negative for intraepithelial lesion or malignancy. [facility] Broadcast Engineer Pap Comment Based on the cytology result, reflex High Risk HPV DNA testing was not performed. [facility] ADEQUACY: Satisfactory for evaluation. Endocervical/trans formation zone component present. [facility] SOURCE Endoc[employer]ix [facility] CYTOTECHNOLOGI ST: MMW, CT(ASCP) [facility] Comment: Lab test performed by: [facility] [address] [address] NELSON FRENCH DO PREV BX: Information not provided [facility] REPORT STATUS FINAL [facility] Endocervical 02/01/2011 10:4 3 AM CDT 02/01/2011 2:10 PM CDT Comment:ENDOCERVICAL Douglas Patricio MD PATHOLOGY/CYTOLOGY ORDERABLE S Final Result [facility] CLIA# [id number] [address] [place] [address] from Last 3 Months or Most Recently Relevant to Health Maintenance Insurance [facility] BLUE ACCESS/TRUE BLUE PPO Advance Directives For more information, please contact: [phone] * Full Code (Latest Code Status on File) Date Activated Date Inactivated Comments 08/31/2011 3:42 PM 09/04/2011 8:53 PM * Full Code Date Activated Date Inactivated Comments 08/30/2011 5:46 PM 08/31/2011 3:42 PM * Full Code Date Activated Date Inactivated Comments 09/08/2010 4:07 PM 09/08/2010 8:44 PM * Full Code Date Activated Date Inactivated Comments 09/08/2010 2:41 PM 09/08/2010 4:07 PM Care Teams Welt Rougher Relationship Specialty Start Date End Date Annalisa Christopher MD [address] [facility] [address] [place] [address] PCP - General 07/07/08
--- OUTSIDE RECORDS SUMMARY | 2024-12-09 00:40 | XMS_ITS | Encounter Summary ---
Author Organization [facility] Address 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 Gender Identity Not on file Sexual Orientation Not on file documented as of this encounter Plan of Treatment Upcoming Encounters Date Type Department Care Team (Late st Contact Info) Description 04/25/2025 8:20 AM CDT Office Visit [facility] Primary Care - [facility] [address] [facility] [address] [place] [address] Annalisa Christopher MD [address] [place] [address] [address] [place] [address] documented as of this encounter Visit Diagnoses Diagnosis Abdominal pain, unspecified site- Primary documented in this encounter Care Teams Geoscience Laboratory Technician Relationship Specialty Start Date End Date Annalisa Christopher MD [address] [facility] [address] [place] [address] PCP - General 07/07/08 documented as of this encounter
--- OUTSIDE RECORDS SUMMARY | 2024-12-09 00:40 | XMS_ITS | Encounter Summary ---
Author Organization [facility] Address 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 [address] [place] [address] Annalisa Christopher MD [address] [facility] [address] [place] [address] documented as of this encounter Visit Diagnoses Not on filedocumented in this encounter Care Teams Beer Coil Cleaner Relationship Specialty Start Date End Date Annalisa Christopher MD [address] [place] [address] PCP - General 07/07/08 documented as of this encounter
--- OUTSIDE RECORDS SUMMARY | 2024-12-09 00:40 | XMS_ITS | Encounter Summary ---
Author Organization [facility] Address 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 - [facility] [address] [facility] [address] [place] [address] Gavin Hadley MD [address] [place] [address] Social History Tobacco Use Types Packs/Day Years Used Date Smoking Tobacco: Never Assessed Comments Unknown Sex and Gender Information Value Date Recorded Sex Assigned at Not on file 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 Gender Identity Not on file Sexual Orientation Not on file documented as of this encounter Plan of Treatment Upcoming Encounters Date Type Department Care Team (Late st Contact Info) Description 04/25/2025 8:20 AM CDT Office Visit [facility] Primary Care - [facility] [address] [place] [address] Annalisa Christopher MD [address] [facility] [address] [place] [address] documented as of this encounter Visit Diagnoses Not on filedocumented in this encounter Care Teams Trimmer Press Clippings Relationship Specialty Start Date End Date Annalisa Christopher MD [address] [place] [address] PCP - General 07/07/08 documented as of this encounter
--- OUTSIDE RECORDS SUMMARY | 2024-12-09 00:40 | XMS_ITS | Encounter Summary ---
Author Organization [facility] Address [address] [place] [address] Care Team Providers Care Manager Database Name Role Phone Annalisa Christopher MD Primary Care Provider [phone] Encounter Details Date Type Department Care Team (Late st Contact Info) Description 12/27/2007 Outpatient Historical [facility] - 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 Gender Identity Not on file Sexual Orientation Not on file documented as of this encounter Plan of Treatment Upcoming Encounters Date Type Department Care Team (Late st Contact Info) Description 04/25/2025 8:20 AM CDT Office Visit [facility] [address] [place] [address] Annalisa Christopher MD [address] [place] [address] [address] [place] [address] documented as of this encounter Visit Diagnoses Not on filedocumented in this encounter Care Teams Manager Database Relationship Specialty Start Date End Date Annalisa Christopher MD [address] [facility] [address] [place] [address] PCP - General 07/07/08 documented as of this encounter
--- OUTSIDE RECORDS SUMMARY | 2024-12-09 00:40 | XMS_ITS | Encounter Summary ---
Author Organization [facility] Address 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 Gender Identity Not on file Sexual Orientation Not on file documented as of this encounter Plan of Treatment Upcoming Encounters Date Type Department Care Team (Late st Contact Info) Description 04/25/2025 8:20 AM CDT Office Visit [facility] Primary Care - [facility] [address] [facility] [address] [place] [address] Annalisa Christopher MD [address] [facility] [address] [place] [address] documented as of this encounter Visit Diagnoses Diagnosis Other specified malposition or malpresentation of fetus, delivered- Primary documented in this encounter Care Teams Aml Analyst Relationship Specialty Start Date End Date Annalisa Christopher MD [address] [facility] [address] [place] [address] PCP - General 07/07/08 documented as of this encounter
--- OUTSIDE RECORDS SUMMARY | 2024-12-09 00:40 | XMS_ITS | Encounter Summary ---
Author Organization [facility] Address [address] [place] [address] Care Team Providers Care Opticianry Teacher Name Role Phone Annalisa Christopher MD Primary Care Provider [phone] Encounter Details Date Type Department Care Team (Late st Contact Info) Description 01/19/2004 Outpatient Historical [facility] SUPERVISOR LOADING - 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 [address] [place] [address] Annalisa Christopher MD [address] [facility] [address] [place] [address] documented as of this encounter Visit Diagnoses Not on filedocumented in this encounter Care Teams Opticianry Teacher Relationship Specialty Start Date End Date Annalisa Christopher MD [address] [place] [address] PCP - General 07/07/08 documented as of this encounter
--- OUTSIDE RECORDS SUMMARY | 2024-12-09 00:40 | XMS_ITS | Encounter Summary ---
Author Organization [facility] Address 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 Gender Identity Not on file Sexual Orientation Not on file documented as of this encounter Plan of Treatment Upcoming Encounters Date Type Department Care Team (Late st Contact Info) Description 04/25/2025 8:20 AM CDT Office Visit [facility] [address] [place] [address] [place] [address] Annalisa Christopher MD [facility] [address] [place] [address] documented as of this encounter Visit Diagnoses Not on filedocumented in this encounter Care Teams Chief Diversity Officer Relationship Specialty Start Date End Date Annalisa Christopher MD [address] [place] [address] [place] [address] PCP - General 07/07/08 documented as of this encounter
--- OUTSIDE RECORDS SUMMARY | 2024-12-09 00:40 | XMS_ITS | Encounter Summary ---
Author Organization [facility] Address [address] [place] [address] Care Team Providers Care Miller Wood Flour Name Role Phone Annalisa Christopher MD Primary Care Provider [phone] Encounter Details Date Type Department Care Team (Latest Contact Info) Description 05/29/2001 Inpatient Historical HIS PATIENT IN A BED Junior Cook MD [address] [place] [address] Intrauterine affecting management of mother, delivered (Primary Dx) Social History Tobacco Use Types Packs/Day Years Used Date Smoking Tobacco: Never Assessed Comments Unknown Sex and Gender Information Value Date Recorded Sex Assigned at Not on file 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 Gender Identity Not on file Sexual Orientation Not on file documented as of this encounter Plan of Treatment Upcoming Encounters Date Type Department Care Team (Late st Contact Info) Description 04/25/2025 8:20 AM CDT Office Visit [facility] Primary Care - [facility] [address] [facility] [address] [place] [address] Annalisa Christopher MD [address] [facility] [address] [place] [address] documented as of this encounter Visit Diagnoses Diagnosis Intrauterine affecting management of mother, delivered- Primary documented in this encounter Care Teams Miller Wood Flour Relationship Specialty Start Date End Date Annalisa Christopher MD [address] [place] [address] PCP - General 07/07/08 documented as of this encounter
--- OUTSIDE RECORDS SUMMARY | 2024-12-09 00:40 | XMS_ITS | Encounter Summary ---
Author Organization [facility] Address [address] [place] [address] Care Team Providers Care Psych Sales Specialist Name Role Phone Annalisa Christopher MD Primary Care Provider [phone] Encounter Details Date Type Department Care Team (Late st Contact Info) Description 04/08/2003 Outpatient Historical [facility] FLORIST SUPPLIES SALESPERSON - [facility] [address] [facility] [address] [place] [address] Gavin Hadley MD [address] [place] [address] Social History Tobacco Use Types Packs/Day Years Used Date Smoking Tobacco: Never Assessed Comments Unknown Sex and Gender Information Value Date Recorded Sex Assigned at Not on file 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 Primary Care - [facility] [address] [place] [address] Annalisa Christopher MD [address] [facility] [address] [place] [address] documented as of this encounter Visit Diagnoses Not on filedocumented in this encounter Care Teams Psych Sales Specialist Relationship Specialty Start Date End Date Annalisa Christopher MD [address] [place] [address] PCP - General 07/07/08 documented as of this encounter
--- OUTSIDE RECORDS SUMMARY | 2024-12-09 00:40 | XMS_ITS | Encounter Summary ---
Author Organization [facility] Address 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 Gender Identity Not on file Sexual Orientation Not on file documented as of this encounter Plan of Treatment Upcoming Encounters Date Type Department Care Team (Late st Contact Info) Description 04/25/2025 8:20 AM CDT Office Visit [facility] [address] [place] [address] [place] [address] Annalisa Christopher MD [facility] [address] [place] [address] documented as of this encounter Visit Diagnoses Not on filedocumented in this encounter Care Teams Naval Architect Specialist Relationship Specialty Start Date End Date Annalisa Christopher MD [address] [place] [address] [place] [address] PCP - General 07/07/08 documented as of this encounter
--- OUTSIDE RECORDS SUMMARY | 2024-12-09 00:40 | XMS_ITS | Encounter Summary ---
Author Organization [facility] Address [address] [place] [address] Care Team Providers Care Plush Dresser Name Role Phone Annalisa Christopher MD Primary Care Provider [phone] Encounter Details Date Type Department Care Team (Late st Contact Info) Description 08/29/2003 Outpatient Historical [facility] FOAM RUBBER MIXER - Medical [facility] [id number] [place] [address] Michael Ledesma MD [id number] [place] [address] Social History Tobacco Use Types Packs/Day Years Used Date Smoking Tobacco: Never Assessed Comments Unknown Sex and Gender Information Value Date Recorded Sex Assigned at Not on file 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 [address] [facility] [address] [place] [address] Annalisa Christopher MD [facility] [address] [place] [address] documented as of this encounter Visit Diagnoses Not on filedocumented in this encounter Care Teams Plush Dresser Relationship Specialty Start Date End Date Annalisa Christopher MD [address] [facility] [address] [place] [address] PCP - General 07/07/08 documented as of this encounter
--- OUTSIDE RECORDS SUMMARY | 2024-12-09 00:40 | XMS_ITS | Encounter Summary ---
Author Organization [facility] Address 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 BOX PRESS OPERATOR Gender Identity Not on file Sexual Orientation Not on file documented as of this encounter Plan of Treatment Upcoming Encounters Date Type Department Care Team (Late st Contact Info) Description 04/25/2025 8:20 AM CDT Office Visit [facility] [address] [place] [address] [place] [address] Annalisa Christopher MD [facility] [address] [place] [address] documented as of this encounter Visit Diagnoses Not on filedocumented in this encounter Care Teams Investigations Consultant Relationship Specialty Start Date End Date Annalisa Christopher MD [address] [place] [address] [place] [address] PCP - General 07/07/08 documented as of this encounter
--- OUTSIDE RECORDS SUMMARY | 2024-12-09 00:40 | XMS_ITS | Encounter Summary ---
Author Organization [facility] Address [address] [place] [address] Care Team Providers Care Manager Corporate Communications Name Role Phone Annalisa Christopher MD Primary Care Provider [phone] Encounter Details Date Type Department Care Team (Late st Contact Info) Description 07/18/2003 Outpatient Historical [facility] VIRTUAL RECRUITER - Medical [address] [address] Joe Meng MD [address] [place] [address] Social History Tobacco Use Types Packs/Day Years Used Date Smoking Tobacco: Never Assessed Comments Unknown Sex and Gender Information Value Date Recorded Sex Assigned at Not on file 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 Gender Identity Not on file Sexual Orientation Not on file documented as of this encounter Plan of Treatment Upcoming Encounters Date Type Department Care Team (Late st Contact Info) Description 04/25/2025 8:20 AM CDT Office Visit [facility] Primary Care - [facility] [address] [facility] [address] [place] [address] Annalisa Chrsitopher MD [address] [place] [address] [address] [place] [address] documented as of this encounter Visit Diagnoses Not on filedocumented in this encounter Care Teams Manager Corporate Communications Relationship Specialty Start Date End Date Annalisa Christopher MD [address] [place] [address] PCP - General 07/07/08 documented as of this encounter
--- OUTSIDE RECORDS SUMMARY | 2024-12-09 00:40 | XMS_ITS | Encounter Summary ---
Author Organization [facility] Address [address] [place] [address] Care Team Providers Care Custom Studio Coordinator Name Role Phone Annalisa Christopher MD Primary Care Provider [phone] Encounter Details Date Type Department Care Team (Late st Contact Info) Description 12/27/2007 Orders Only [facility] - [facility] [address] [place] [address] [address] [place] [address] Annalisa Christopher MD [address] [place] [address] [address] [place] [address] Social History Tobacco Use Types Packs/Day Years Used Date Smoking Tobacco: Never Assessed Comments Unknown Sex and Gender Information Value Date Recorded Sex Assigned at Not on file 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 ALCOHOL: Drinks a minimal amount of [...] 280.0-IRON DEFICIENCY ANEMIAS LAB ORDERS: Order number: [id number] Test Ordered: CBC W/ DIFFERENTIAL [facility] [address] [facility] [address] [place] [address] Annalisa Christopher MD [address] [facility] [address] [place] [address] documented as of this encounter Visit Diagnoses Not on filedocumented in this encounter Care Teams Custom Studio Coordinator Relationship Specialty Start Date End Date Annalisa Christopher MD [address] [facility] [address] [place] [address] PCP - General 07/07/08 documented as of this encounter
--- OUTSIDE RECORDS SUMMARY | 2024-12-09 00:40 | XMS_ITS | Encounter Summary ---
Author Organization [facility] Address 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 [address] [place] [address] documented as of this encounter Visit Diagnoses Not on filedocumented in this encounter Care Teams Armed Security Guard Relationship Specialty Start Date End Date Annalisa Christopher MD [address] [place] [address] [place] [address] PCP - General 07/07/08 documented as of this encounter
--- OUTSIDE RECORDS SUMMARY | 2024-12-09 00:40 | XMS_ITS | Encounter Summary ---
Author Organization [facility] Address [address] [place] [address] Care Team Providers Care Popcorn Machine Operator Name Role Phone Annalisa Christopher MD Primary Care Provider [phone] Encounter Details Date Type Department Care Team (Late st Contact Info) Description 12/27/2007 Outpatient Historical [facility] [address] [place] [address] Annalisa Christopher MD [address] [place] [address] [address] [place] [address] Social History Tobacco Use Types Packs/Day Years Used Date Smoking Tobacco: Never Assessed Comments Unknown Sex and Gender Information Value Date Recorded Sex Assigned at Not on file 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 Gender Identity Not on file Sexual Orientation Not on file documented as of this encounter Plan of Treatment Upcoming Encounters Date Type Department Care Team (Late st Contact Info) Description 04/25/2025 8:20 AM CDT Office Visit [facility] [address] [place] [address] Annalisa Christopher MD [address] [place] [address] [address] [place] [address] documented as of this encounter Visit Diagnoses Not on filedocumented in this encounter Care Teams Popcorn Machine Operator Relationship Specialty Start Date End Date Annalisa Christopher MD [address] [facility] [address] [place] [address] PCP - General 07/07/08 documented as of this encounter
--- OUTSIDE RECORDS SUMMARY | 2024-12-09 00:40 | XMS_ITS | Encounter Summary ---
Author Organization [facility] Address [address] [place] [address] Care Team Providers Care Mill Order Scheduler Name Role Phone Annalisa Christopher MD Primary Care Provider [phone] Encounter Details Date Type Department Care Team (Latest Contact Info) Description 12/27/2007 Outpatient Historical [address] [place] [address] Annalisa Christopher MD [address] [place] [address] [address] [place] [address] Iron Deficiency Anemia Secondary to Blood Loss (Chronic) Social History Tobacco Use Types Packs/Day Years Used Date Smoking Tobacco: Never Assessed Comments Unknown Sex and Gender Information Value Date Recorded Sex Assigned at Not on file 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 Gender Identity Not on file Sexual Orientation Not on file documented as of this encounter Plan of Treatment Upcoming Encounters Date Type Department Care Team (Late st Contact Info) Description 04/25/2025 8:20 AM CDT Office Visit [facility] [address] [place] [address] [address] [place] [address] Annalisa Christopher MD [address] [place] [address] [address] [place] [address] documented as of this encounter Procedures Procedure Name Priority Date/Time Associated Diagnosis Comments CBC WITH DIFFERENTIAL Routine 12/27/2007 1:34 PM CDT documented in this encounter Results * CBC WITH DIFFERENTIAL (12/27/2007 1:34 PM CDT) WBC 6.8 4.0 - 9.8 K/uL [facility] MCH 30.1 27.2 - 32.6 pg [facility] MPV 11.1 9.3 - 12.4 fL [facility] HEMATOCRIT 40.0 35.5 - 44.0 % [facility] RDW-STDEV 44.4 37.1 - 48.7 fL [facility] RBC 4.38 3.90 - 4.90 M/uL [facility] MCHC 33.0 31.5 - 35.5 % [facility] MCV 91.3 82.0 - 99.0 fL [facility] PLATELETS 222 140 - 350 K/uL [facility] HEMOGLOBIN 13.2 11.8 - 14.8 g/dL [facility] RDW 13.3 11.5 - 14.5 % [facility] BASOPHILS 0 0 - 2 % [facility] BASOPHILS ABSOLUTE 0.02 0.00 - 0.20 K/uL [facility] MONOCYTES 9 3 - 13 % [facility] MONOCYTE ABSOLUTE 0.64 0.10 - 1.30 K/uL [facility] NEUTROPHILS 61 45 - 70 % [facility] NEUTROPHIL ABSOLUTE 4.16 1.90 - 7.00 K/uL [facility] EOSINOPHILS 1 0 - 7 % [facility] EOSINOPHIL ABSOLUTE 0.07 0.00 - 0.70 K/uL [facility] LYMPHOCYTES 29 16 - 45 % [facility] LYMPHOCYTE ABSOLUTE 1.95 0.70 - 4.50 K/uL [facility] Blood specimen (specimen) 12/27/2007 1:34 PM CDT 12/27/2007 5:05 PM CDT Annalisa Christopher MD HEMATOLOGY ORDERABLES Edited [facility] [address] [place] [address] documented in this encounter Visit Diagnoses Diagnosis Iron deficiency anemia secondary to blood loss (chronic) documented in this encounter Care Teams Mill Order Scheduler Relationship Specialty Start Date End Date Annalisa Christopher MD [address] [place] [address] PCP - General 07/07/08 documented as of this encounter
--- OUTSIDE RECORDS SUMMARY | 2024-12-09 00:40 | XMS_ITS | Encounter Summary ---
Author Organization [facility] Address [address] [place] [address] Care Team Providers Care Pig Machine Supervisor Name Role Phone Annalisa Christopher MD Primary Care Provider [phone] Encounter Details Date Type Department Care Team (Late Contact Info) Description 08/26/2005 Outpatient Historical [facility] Horacio Bain MD [address] [place] [address] [place] [address] ABDOMINAL PAIN UNSPEC SITE (Primary Dx) Social History Tobacco Use Types Packs/Day Years Used Date Smoking Tobacco: Never Assessed Comments Unknown Sex and Gender Information Value Date Recorded Sex Assigned at Not on file Legal Sex Female 3:07 AM PROVIDER SCRIBE Gender Identity Not on file Sexual Orientation Not on file documented as of this encounter Plan of Treatment Upcoming Encounters Date Type Department Care Team (Late Contact Info) Description 04/25/2025 8:20 AM CDT Office Visit [facility] Primary Care - [facility] [address] [facility] [address] [place] [address] Annalisa Christopher MD [address] [facility] [address] [place] [address] documented as of this encounter Visit Diagnoses Diagnosis Abdominal pain, unspecified site- Primary documented in this encounter Care Teams Pig Machine Supervisor Relationship Specialty Start Date End Date Annalisa Christopher MD [address] [place] [address] PCP - General 07/07/08 documented as of this encounter
--- OUTSIDE RECORDS SUMMARY | 2024-12-09 00:40 | XMS_ITS | Patient Health Summary ---
Author Organization [facility] Address [address] [place] [address] Care Team Providers Care Robot Technician Name Role Phone Leah Santo MD Primary Care Provider Nataliea [facility] Note from [facility],non-owned Affiliates and Associated Physician Practices is amultiple site organization consisting of ambulatory clinics and hospital sitesin [place], [place], [place] and [place]. This disclosure is being madepursuant to the Care Everywhere program and may not contain all information available regarding this patient. Last updated 18.[facility] Allergies * Sulfa Drugs Social History Tobacco [...] Unknown 05/25/2017 12:24 PM CDT Rudi Naik APRN-HOSE SUSPENDER CUT[facility] - [place] RE ORDERABLES Care Teams Robot Technician Relationship Specialty Start Date End Date Leah Santo MD PCP - General Internal Medicine 05/23/17
--- OUTSIDE RECORDS SUMMARY | 2024-12-09 00:40 | XMS_ITS | Encounter Summary ---
Author Organization [facility] Address [address] [place] [address] Care Team Providers Care Project Manager Entertainment And Media Name Role Phone Annalisa Christopher MD Primary Care Provider [phone] Encounter Details Date Type Department Care Team (Late st Contact Info) Description 06/05/2003 Outpatient Historical [facility] COMMUNICATION EQUIPMENT REPAIRER - [facility] [address] [facility] [address] [place] [address] Gavin Hadley MD [address] [place] [address] Social History Tobacco Use Types Packs/Day Years Used Date Smoking Tobacco: Never Assessed Comments Unknown Sex and Gender Information Value Date Recorded Sex Assigned at Not on file 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 Primary Care - [facility] [address] [place] [address] Annalisa Christopher MD [address] [facility] [address] [place] [address] documented as of this encounter Visit Diagnoses Not on filedocumented in this encounter Care Teams Project Manager Entertainment And Media Relationship Specialty Start Date End Date Annalisa Christopher MD [address] [place] [address] PCP - General 07/07/08 documented as of this encounter
--- OUTSIDE RECORDS SUMMARY | 2024-12-09 00:40 | XMS_ITS | Encounter Summary ---
Author Organization [facility] Address 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 Sex Female 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 Gender Identity Not on file Sexual Orientation Not on file documented as of this encounter Plan of Treatment Upcoming Encounters Date Type Department Care Team (Late st Contact Info) Description 04/25/2025 8:20 AM CDT Office Visit [facility] [address] [place] [address] [place] [address] Annalisa Christopher MD [facility] [address] [place] [address] documented as of this encounter Visit Diagnoses Not on filedocumented in this encounter Care Teams Media Sales Consultant Relationship Specialty Start Date End Date Annalisa Christopher MD [address] [place] [address] [place] [address] PCP - General 07/07/08 documented as of this encounter
--- OUTSIDE RECORDS SUMMARY | 2024-12-09 00:40 | XMS_ITS | Encounter Summary ---
Author Organization [facility] Address [address] [place] [address] Care Team Providers Care Manager Mechanical Name Role Phone Annalisa Christopher MD Primary Care Provider [phone] Encounter Details Date Type Department Care Team (Late st Contact Info) Description 11/29/2003 Outpatient Historical [facility] QUALITY COMPLIANCE MANAGER - [facility] 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 [address] [place] [address] documented as of this encounter Visit Diagnoses Not on filedocumented in this encounter Care Teams Manager Mechanical Relationship Specialty Start Date End Date Annalisa Christopher MD [address] [place] [address] PCP - General 07/07/08 documented as of this encounter
--- OUTSIDE RECORDS SUMMARY | 2024-12-09 00:40 | XMS_ITS | Encounter Summary ---
Author Organization [facility] Address [address] [place] [address] Care Team Providers Care Field Supervisor Name Role Phone Annalisa Christopher MD Primary Care Provider [phone] Encounter Details Date Type Department Care Team (Late st Contact Info) Description 02/03/2005 Outpatient Historical [facility] MAINTENANCE CONTROLLER - [facility] [address] [place] [address] Gavin Hadley MD [address] [place] [address] Social History Tobacco Use Types Packs/Day Years Used Date Smoking Tobacco: Never Assessed Comments Unknown Sex and Gender Information Value Date Recorded Sex Assigned at Not on file 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 Sex Female 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 BULB 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 Gender Identity Not on file Sexual Orientation Not on file documented as of this encounter Plan of Treatment Upcoming Encounters Date Type Department Care Team (Late st Contact Info) Description 04/25/2025 8:20 AM CDT Office Visit [facility] Primary Care - [facility] [address] [place] [address] Annalisa Christopher MD [address] [place] [address] documented as of this encounter Visit Diagnoses Not on filedocumented in this encounter Care Teams Field Supervisor Relationship Specialty Start Date End Date Annalisa Christopher MD [address] [place] [address] PCP - General 07/07/08 documented as of this encounter
--- OUTSIDE RECORDS SUMMARY | 2024-12-09 00:40 | XMS_ITS | Encounter Summary ---
Author Organization [facility] Address [address] [place] [address] Care Team Providers Care Media Sales Representative Name Role Phone Annalisa Christopher MD Primary Care Provider [phone] Encounter Details Date Type Department Care Team (Late st Contact Info) Description 10/27/2004 Outpatient Historical [facility] RUNNING INSTRUCTOR - 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 [address] [place] [address] Annalisa Christopher MD [address] [place] [address] documented as of this encounter Visit Diagnoses Not on filedocumented in this encounter Care Teams Media Sales Representative Relationship Specialty Start Date End Date Annalisa Christopher MD [address] [place] [address] PCP - General 07/07/08 documented as of this encounter
--- OUTSIDE RECORDS SUMMARY | 2024-12-09 00:40 | XMS_ITS | Encounter Summary ---
Author Organization [facility] Address [address] [place] [address] Care Team Providers Care Filling Machine Set Up Mechanic Name Role Phone Annalisa Christopher MD Primary Care Provider [phone] Encounter Details Date Type Department Care Team (Late st Contact Info) Description 08/25/2005 Outpatient Historical [facility] BOREMATIC OPERATOR - [facility] [address] [place] [address] Douglas Patricio MD [address] [place] [phone] Social History Tobacco Use Types Packs/Day Years Used Date Smoking Tobacco: Never Assessed Comments Unknown Sex and Gender Information Value Date Recorded Sex Assigned at Not on file 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 Sex Female 3: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 SOLAR INSTALLATION SUPERVISOR Gender Identity Not on file Sexual Orientation Not on file documented as of this encounter Plan of Treatment Upcoming Encounters Date Type Department Care Team (Late st Contact Info) Description 04/25/2025 8:20 AM CDT Office Visit [facility] Primary Care - [facility] [address] [place] [address] Annalisa Chirstopher MD [address] [place] [address] [address] [place] [address] documented as of this encounter Visit Diagnoses Not on filedocumented in this encounter Care Teams Filling Machine Set Up Mechanic Relationship Specialty Start Date End Date Annalisa Christopher MD [address] [place] [address] PCP - General 07/07/08 documented as of this encounter
[2024-12-09 10:18] VITALS: BP 129/79; PULSE 112; RESP 16; TEMP 36.6; O2SAT 99; BMI 29.5
--- NOTE | 2024-12-09 10:21 | WPDANESEPPF ---
Anes - Initial Pre Proc Eval Procedure: Operation Date: 12/09/24 12:30 Proposed Procedures p Esophagogastroduodenoscopy & Colonoscopy - Ricardo Gee MD Date/Time: 12/09/24 10:21 Surgeon: Ricardo Gee MD Pre Op Diagnosis: epigastric pain,abd pain, hernia,diarrhea Patient Data Age: 49 Gender: F Height: 1.7 m Weight: 85.4 kg Last Vital Signs Temp 36.6 C 12/09/24 10:18 Pulse 112 H 12/09/24 10:18 Resp 16 12/09/24 10:18 BP 129/79 12/09/24 10:18 Pulse Ox 99 12/09/24 10:18 O2 Del Method Room Air 12/09/24 10:18 Allergies Allergy/AdvReac Type Severity Reaction Status Date / Time succinylcholine Allergy Unknown Verified 12/09/24 10:16 Sulfa (Sulfonamide Allergy Hives Verified 12/09/24 10:16 Antibiotics) Home Medications ?Medication ?Instructions ?Recorded ?Confirmed ?Type albuterol sulfate 90 mcg/actuation 1 puff inhalation Q4H PRN 12/09/21 11/27/24 History aerosol inhaler shortness of breath or wheezing cetirizine 10 mg capsule (Zyrtec) 10 mg PO DAILY 12/09/21 12/09/24 History escitalopram oxalate 10 mg tablet 10 mg PO DAILY 12/09/21 12/09/24 History (Lexapro) fluticasone furoate 100 1 inh inhalation DAILY 12/09/21 12/09/24 History mcg-vilanterol 25 mcg/dose inhalation powder (Breo Ellipta) fluticasone propionate 50 1 spray intranasal DAILY 12/09/21 12/09/24 History mcg/actuation nasal spray,suspension (Flonase Allergy Relief) levonorgestrel (Mirena) 1 device intrauterine ONCE 12/09/21 12/09/24 History progesterone micronized 100 mg See Rx Instructions PO QAM 03/13/24 12/09/24 History capsule testosterone 1 pump topical DAILY 03/13/24 12/09/24 History acetaminophen 500 mg capsule 1,000 mg (2 x 500 mg) PO Q6H PRN 09/30/24 11/27/24 Rx pain #20 caps ibuprofen 600 mg tablet 600 mg PO TID PRN pain #20 tabs 01/06/25 03/05/25 Rx ondansetron 4 mg disintegrating 4 mg PO Q8H PRN nausea and 09/30/24 11/27/24 Rx tablet vomiting #7 tabs omeprazole 20 mg tablet,delayed 20 mg PO DAILY 1 month #30 tabs 10/07/24 12/09/24 Rx release promethazine 25 mg tablet 25 mg PO Q6H PRN migraine headache 11/27/24 11/27/24 History propranolol 20 mg tablet 20 mg PO TID 11/27/24 12/09/24 History Patient hx anesthesia problems: none Family hx anesthesia problems: none Results Review: All pre-operative results and documents have been reviewed as part of the pre-operative evaluation. [facility] Past Medical History Medical History Diarrhea Family history of Crohn's disease Abnormal CT scan Intermittent diarrhea Hiatal hernia Abdominal pain Epigastric pain Irregular periods Encounter for screening examination for sexually transmitted disease Kidney stones Screening mammogram, encounter for Encounter for IUD removal 10/21/16 Mirena removal & reinsertion Encounter for IUD insertion 10/21/16 Mirena removal & reinsertion 2012 Mirena insertion Delivery outcome of stillborn Depression Asthma Anxiety Migraines Surgical History Surgical History History of gynecological procedure (03/22/22) mirena iud removal Device had shifted and replacement with new device History of gynecological procedure (~01/27/22) mirena iud removal and insertion of new device History of 2006 primary c/s--presentation of hand 08/31/11 History of breast surgery 2007 Family History Family History Mother Diabetes mellitus Hypertension Heart disease Father Hypertension Cerebrovascular accident Heart disease Grandparent Ovary cancer paternal grandmother Social History Social History Smoking status: Former smoker Smoking end date: 09/25/03 Alcohol intake: current Alcohol use details: 2 per month Substance use: never Substance use type: does not use Do You Feel Safe in your Home?: Yes Lack of Transportation: No Lack of Food: Never True Current Housing: I Have Housing Concerned About Future Housing: No Difficulty Paying Gas/Electric Bills: No Difficulty Paying for Meds: No Education: Decline to Answer Difficulty w/ Childcare or Family Care: No Living arrangements: other Additional living arrangements comments: spouse 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/Education: 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 Gender identity (if verbalized by the patient): Female Sexual Orientation (if Verbalized by the Patient): Straight or Heterosexual Anes - Eval Final PreProcedure Day of Procedure 12/09/24 10:21 Patient weight: overweight Heart: regular rate and rhythm Lungs: clear to auscultation Airway: Mallampati scale class II Neurological: alert and oriented Last oral intake: >/= 8 hours ASA classification: II Emergent: no Anesthetic plan: proceed Anesthesia type and monitoring: general GIVS and standard monitoring Results Review: All pre-operative results and documents have been reviewed as part of the pre-operative evaluation. Informed Consent: The patient's anesthetic plan and its attendant risks and benefits were discussed with the patient/family/POA. Questions were solicited and answers provided to the satisfaction of the patient/family/POA.
[2024-12-09 10:23] LABS: BEDSIDEPREGUCG Negative (Negative)
[2024-12-09] MEDS: LACTATED RINGERS 1,000 ML 150 ML IV CONT (10:28)
--- NOTE | 2024-12-09 10:50 | PM.IMHP ---
H&P: HPI History of Present Illness Date/Time: 12/09/24 10:50 Chief Complaint: GERD-screening colonoscopy -rectal bleeding Narrative: this patient has been having episodes of heartburn and was told she has hiatal hernia. She went through a period of persistent diarrhea in August, probably attributable to excessive doses of thyroid hormone. During the time she had a few episodes of rectal bleeding. Now resolved. Her stools are currently normal. There is a CT scan finding of a dilated cecum. She never had screening colonoscopy and had negative Cologuard testing. Review of Systems Review of Systems: All systems reviewed & are unremarkable except as noted in HPI and below PMFSH Past Medical History Medical History Diarrhea Family history of Crohn's disease Abnormal CT scan Intermittent diarrhea Hiatal hernia Abdominal pain Epigastric pain Irregular periods Encounter for screening examination for sexually transmitted disease Kidney stones Screening mammogram, encounter for Encounter for IUD removal 10/21/16 Mirena removal & reinsertion Encounter for IUD insertion 10/21/16 Mirena removal & reinsertion 2012 Mirena insertion Delivery outcome of stillborn infant Depression Asthma Anxiety Migraines Surgical History Surgical History History of gynecological procedure (03/22/22) mirena iud removal Device had shifted and replacement with new device History of gynecological procedure (~01/27/22) mirena iud removal and insertion of new device History of 2006 primary c/s--presentation of hand 08/31/11 History of breast surgery 2007 Family History Family History Mother Diabetes mellitus Hypertension Heart disease Father Hypertension Cerebrovascular accident Heart disease Grandparent Ovary cancer paternal grandmother Social History Social History Smoking status: Former smoker Smoking end date: 09/25/03 Alcohol intake: current Alcohol use details: 2 per month Substance use: never Substance use type: does not use Do You Feel Safe in your Home?: Yes Lack of Transportation: No Lack of Food: Never True Current Housing: I Have Housing Concerned About Future Housing: No Difficulty Paying Gas/Electric Bills: No Difficulty Paying for Meds: No Education: Decline to Answer Difficulty w/ Childcare or Family Care: No Living arrangements: other Additional living arrangements comments: spouse 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/Education: 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 Gender identity (if verbalized by the patient): Female Sexual Orientation (if Verbalized by the Patient): Straight or Heterosexual Meds Home Medications and Allergies Home Medications ?Medication ?Instructions ?Recorded ?Confirmed ?Type albuterol sulfate 90 mcg/actuation 1 puff inhalation Q4H PRN 12/09/21 11/27/24 History aerosol inhaler shortness of breath or wheezing cetirizine 10 mg capsule (Zyrtec) 10 mg PO DAILY 12/09/21 12/09/24 History escitalopram oxalate 10 mg tablet 10 mg PO DAILY 12/09/21 12/09/24 History (Lexapro) fluticasone furoate 100 1 inh inhalation DAILY 12/09/21 12/09/24 History mcg-vilanterol 25 mcg/dose inhalation powder (Breo Ellipta) fluticasone propionate 50 1 spray intranasal DAILY 12/09/21 12/09/24 History mcg/actuation nasal spray,suspension (Flonase Allergy Relief) levonorgestrel (Mirena) 1 device intrauterine ONCE 12/09/21 12/09/24 History progesterone micronized 100 mg See Rx Instructions PO QAM 03/13/24 12/09/24 History capsule testosterone 1 pump topical DAILY 03/13/24 12/09/24 History acetaminophen 500 mg capsule 1,000 mg (2 x 500 mg) PO Q6H PRN 09/30/24 11/27/24 Rx pain #20 caps ibuprofen 600 mg tablet 600 mg PO TID PRN pain #20 tabs 09/30/24 11/27/24 Rx ondansetron 4 mg disintegrating 4 mg PO Q8H PRN nausea and 09/30/24 11/27/24 Rx tablet vomiting #7 tabs omeprazole 20 mg tablet,delayed 20 mg PO DAILY 1 month #30 tabs 10/07/24 12/09/24 Rx release promethazine 25 mg tablet 25 mg PO Q6H PRN migraine headache 11/27/24 11/27/24 History propranolol 20 mg tablet 20 mg PO TID 11/27/24 12/09/24 History Allergies Allergy/AdvReac Type Severity Reaction Status Date / Time succinylcholine Allergy Unknown Verified 12/09/24 10:16 Sulfa (Sulfonamide Allergy Hives Verified 12/09/24 10:16 Antibiotics) Vital Signs Vital Signs - 24 hr 12/09/24 10:18 Temperature 97.9 F Pulse Rate 112 H Respiratory Rate 16 Blood Pressure 129/79 Pulse Oximetry 99 Oxygen Delivery Room Air Exam Const: General: cooperative and healthy appearing Resp: Effort & Inspection: normal respiratory effort and able to speak in complete sentences Auscultation: clear to auscultation bilaterally Cardio: Rate: regular rate Rhythm: regular rhythm GI: Inspection: normal to inspection GI Palp: No No hepatosplenomegaly present Auscultation: normal bowel sounds Rectal Exam: deferred Skin: General skin exam: normal color Psych: Appearance: grossly normal Mental Status: mental status grossly normal Assessment and Plan Assessment and plan (1) Hiatal hernia: Code(s): K44.9 - Diaphragmatic hernia without obstruction or gangrene Status: Acute Assessment and Plan: The patient is deemed a good candidate for the procedures. Consent signed. Will proceed. (2) Encounter for screening colonoscopy: Code(s): Z12.11 - Encounter for screening for malignant neoplasm of colon Status: Acute
--- NOTE | 2024-12-09 11:10 | SUR.OPER ---
EGD [id number]. Colonoscopy start time 1113.
[2024-12-09 11:27] VITALS: BP 69/61; PULSE 117; RESP 16; O2SAT 99
[2024-12-09 11:37] VITALS: BP 116/69; PULSE 114; RESP 16; O2SAT 99
[2024-12-09 11:47] VITALS: BP 123/75; PULSE 109; RESP 21; O2SAT 100
== END 2024-12-09 12:05 | disposition home or self-care (01) ==
PROVIDERS: Anesthesiology; Referring Provider Nurse Practitioner Family; Visit Provider Internal Medicine Gastroenterology
PROC: 0DJ08ZZ Inspection of Upper Intestinal Tract, Via Natural or Artificial Opening Endoscopic (ICD-10-PCS; CPT 45378; principal; 2024-12-09 12:30)
DX: Z12.11 Encounter for screening for malignant neoplasm of colon (principal); K44.9 Diaphragmatic hernia without obstruction or gangrene; K29.50 Unspecified chronic gastritis without bleeding; K21.9 Gastro-esophageal reflux disease without esophagitis; J45.909 Unspecified asthma, uncomplicated; F32.A Depression, unspecified; F41.9 Anxiety disorder, unspecified; Z79.51 Long term (current) use of inhaled steroids; Z79.1 Long term (current) use of non-steroidal anti-inflammatories (NSAID); Z98.890 Other specified postprocedural states; Z87.891 Personal history of nicotine dependence; Z87.442 Personal history of urinary calculi; Z80.41 Family history of malignant neoplasm of ovary; Z82.49 Family history of ischemic heart disease and other diseases of the circulatory system
CPT/HCPCS: 43239; 45380; 88305; J2704; J7120

== ENCOUNTER 2025-03-21 13:55 | Outpatient (CLI) | payer BC, SELFPAY ==
--- NOTE | ~2025-03-21 | MM_ITS ---
EXAMINATION: MM scrn arben implant BI w monae HISTORY: Screening mammogram TECHNIQUE: Craniocaudal and mediolateral oblique 3-D tomosynthesis images with implant displacement a nd synthetic 2-D images were generated. Craniocaudal and mediolateral oblique views of the breasts wi thout implant displacement were obtained using full field digital mammography. CAD analysis was submi tted and interpreted. COMPARISON: 04/23/2024, 04/22/2023, 02/22/2022 BREAST PARENCHYMAL COMPOSITION: There are scattered areas of fibroglandular density. FINDINGS: There is no evidence of suspicious mass, calcification, or architectural distortion to sugg est malignancy in either breast. There has been no suspicious interval change. IMPRESSION: No mammographic evidence of malignancy. Recommend routine screening mammography in one year. BI-RADS Category 1: Negative Reviewed, dictated and finalized at [facility].
== END 2025-03-21 13:56 | disposition home or self-care (01) ==
LOC: CHSIMG 13:57
PROVIDERS: PCP Obstetrics & Gynecology; Visit Provider Obstetrics & Gynecology
DX: Z12.31 Encounter for screening mammogram for malignant neoplasm of breast (principal)
CPT/HCPCS: 77063; 77067